=== PATIENT | female | born 2000 | race Caucasian/White ===

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

== ENCOUNTER 2019-04-24 16:30 | Outpatient (CLI) | payer OTHER, MEDICAID, SELFPAY ==
[2019-04-24 16:48] VITALS: BMI 27.2
--- NOTE | 2019-04-24 17:40 | OB.TRI.NOTE ---
History of Present Illness Date of Service: 04/24/19 Was patient seen by the physician?: No Reason For Visit: NST Allergies No Known Allergies Allergy (Verified 04/24/19 16:50) NST - FHR Rate Baby A Baseline: 140 Variability:: Moderate Accelerations:: 15 x 15 Decelerations:: None NST Reactive:: Yes FHR Category:: Category I Uterine Activity:: irregular Impression/Plan 18yo @ 39 wks with Reassuring status. - resolved tachycardia that was noted in office 1) dc home
== END 2019-04-24 17:45 | disposition home or self-care (01) ==
LOC: WPOUT 16:43 → WP 16:44
PROVIDERS: Family Provider Pediatrics; PCP Pediatrics; Referring Provider Obstetrics & Gynecology; Visit Provider Obstetrics & Gynecology
DX: O76 Abnormality in fetal heart rate and rhythm complicating labor and delivery (principal); Z3A.39 39 weeks gestation of pregnancy
CPT/HCPCS: 59025; 99218; G0378

== ENCOUNTER 2019-05-01 16:30 | Outpatient (CLI) | payer MEDICAID, SELFPAY ==
[2019-05-01 16:58] VITALS: BMI 27.6
--- NOTE | 2019-05-02 09:17 | OB.TRI.NOTE ---
History of Present Illness Was patient seen by the physician?: Yes Reason For Visit: R/O LABOR Date of Service: 05/01/19 Final PLACIDO: 05/01/19 Gestational age: 40 Weeks Allergies No Known Allergies Allergy (Verified 04/24/19 16:50) NST - FHR Rate Baby A Baseline: 135 Variability:: Moderate Accelerations:: 15 x 15 Decelerations:: None NST Reactive:: Yes Uterine Activity:: irregular Impression/Plan Reactive NST for false labor
== END 2019-05-01 17:20 | disposition home or self-care (01) ==
LOC: WPOUT 16:53 → WP 16:54
PROVIDERS: Family Provider Pediatrics; PCP Pediatrics; Referring Provider Obstetrics & Gynecology; Visit Provider Obstetrics & Gynecology
DX: O47.1 False labor at or after 37 completed weeks of gestation (principal); Z3A.40 40 weeks gestation of pregnancy
CPT/HCPCS: 59025; 59050; 99218; G0378

== ENCOUNTER 2019-05-02 15:30 | Outpatient (CLI) | payer MEDICAID, SELFPAY ==
[2019-05-01 16:58] VITALS: BMI 27.6
[2019-05-02 16:21] VITALS: BMI 27.5
--- NOTE | 2019-05-03 07:23 | OB.TRI.NOTE ---
History of Present Illness Date of Service: 05/02/19 Was patient seen by the physician?: No Reason For Visit: R/O LABOR Allergies No Known Allergies Allergy (Verified 04/24/19 16:50) NST - FHR Rate Baby A Baseline: 130 Variability:: Moderate Accelerations:: 15 x 15 Decelerations:: None NST Reactive:: Yes FHR Category:: Category I Uterine Activity:: Q4-6 Impression/Plan 18yo @ 40.1 wks- early labor [facility]
== END 2019-05-02 17:55 | disposition home or self-care (01) ==
LOC: WPOUT 16:06 → WP 16:07
PROVIDERS: Family Provider Pediatrics; PCP Pediatrics; Referring Provider Obstetrics & Gynecology; Visit Provider Obstetrics & Gynecology
DX: Z34.93 Encounter for supervision of normal pregnancy, unspecified, third trimester (principal); Z3A.40 40 weeks gestation of pregnancy
CPT/HCPCS: 59025; 59050; 99218; G0378

== ENCOUNTER 2019-05-02 20:20 | Outpatient (CLI) | payer MEDICAID, SELFPAY ==
[2019-05-02 16:21] VITALS: BMI 27.5
[2019-05-02 21:09] VITALS: BMI 27.3
--- NOTE | 2019-05-03 07:26 | OB.TRI.HP_ITS ---
History of Present Illness Date of Service: 05/02/19 Was patient seen by the physician?: No Reason For Visit: RULE OUT LABOR Final PLACIDO Source: US <20 weeks Allergies No Known Allergies Allergy (Verified 04/24/19 16:50) NST - FHR Rate Baby A Baseline: 130 Variability:: Moderate Accelerations:: 15 x 15 Decelerations:: None NST Reactive:: Yes FHR Category:: Category I Uterine Activity:: 4-6min Impression/Plan 18 yo @ 40.1 wks in early labor [facility]
== END 2019-05-02 22:20 | disposition home or self-care (01) ==
LOC: WPOUT 20:39 → WP 20:40
PROVIDERS: Family Provider Pediatrics; PCP Pediatrics; Referring Provider Obstetrics & Gynecology; Visit Provider Obstetrics & Gynecology
DX: Z34.93 Encounter for supervision of normal pregnancy, unspecified, third trimester (principal); Z3A.40 40 weeks gestation of pregnancy
CPT/HCPCS: 59025; 59050; 99218; G0378

== ENCOUNTER 2019-05-03 03:30 | Inpatient (IN) | payer OTHER, MEDICAID, SELFPAY ==
[2019-05-02 21:09] VITALS: BMI 27.3
[2019-05-03 03:37] VITALS: BMI 27.5
[2019-05-03] MEDS: Lactated Ringers 500 ML 999 ML IV (03:42)
[2019-05-03 03:59] LABS: Absolute Lymphocyte Count 1.12 X10^3/uL (0.83-4.51); Absolute Neutrophil Count 14.6 X10^3/uL (2.0-7.7); Basophil# 0.03 X10^3/uL; Basophil% 0.2 % (0-1); Eosinophil# 0.01 X10^3/uL; Eosinophils% 0.1 % (0-5); Hematocrit 37.7 % (37-47); Hemoglobin 12.8 g/dL (12.0-15.0); Lymphocyte # 1.12 X10^3/ul (4.0); Lymphocyte % 6.8 % (19-41); Mean Corpuscular Hgb 31.7 pg (27.0-32.0); Mean Corpuscular Volume 93.3 fL (81-99); Mean Platelet Vol. 10.9 fl (6.2-12.0); Monocyte# 0.52 X10^3/uL; Monocyte% 3.2 % (0-10); NRBC Flagged by Analyzer 0 % (0-5); Neutrophil # 14.62 X10^3/uL (2.7-7.7); Neutrophil % 89.1 % (47-70); Platelet Count 159 K/mm3 (150-450); Red Blood Count 4.04 M/mm3 (4.2-5.4); White Blood Count 16.4 K/mm3 (4.4-11.0)
[2019-05-03] MEDS: Lactated Ringers 1,000 ML 200 ML IV (04:25)
[2019-05-03] MEDS: fentaNYL-bupivacaine (epidural) 100 ML BAG EPIDURAL (04:45)
[2019-05-03] MEDS: Mag Hydrox/Al Hydrox/Simeth 30 ML UDC PO (05:51)
--- NOTE | 2019-05-03 07:27 | PCM.HP.OB ---
History Date of Admission: 05/03/19 Final PLACIDO: 05/01/19 Final PLACIDO Source: US <20 weeks Gestational age: 40 Weeks and 2 Days History of this : This is a 18 year-old, G P0 at 40.2 weeks gestation presents in active labor patient was found to be 8 cm at time of arrival. Allergies No Known Allergies Allergy (Verified 04/24/19 16:50) Home Medications: Home Medications Vits [Prenatabs FA] 1 tablet PO DAILY 09/10/18 Smoking Status: Former smoker Alcohol: None Substance Use Type: Marijuana Number of Fetus(es): 1 NST - FHR Rate Baby A Baseline: 135 Variability:: Moderate Accelerations:: 15 x 15 Decelerations:: None NST Reactive:: Yes FHR Category:: Category I Uterine Activity:: q4-5 History Past Pregnancies: Past Pregnancies Delivery Date Name GA/Weeks Outcome Route Weight Infant Gender Labor Length Anesthesia Delivery Location Provider FOB Labs: O neg, GBS neg, HIV NR, syphilis Neg, GC/Chlamydia neg, Rub imm Expected Infant Delivery Method: Spontaneous Vaginal Physical Exam General: Alert, Oriented x3 Abdomen: Soft, Gravid Neurological: Cranial nerves II-XII grossly intact REGISTERED NURSE CARDIOVASCULAR ICU: Normal external genitalia Estimated gestational size: Appropriate for gestational size Presentation: Cephalic Cervix Dilation (cm): 8 Station: 0 Effacement (%): 90 Assessment/Plan This is a 18 year-old, G 1P0 at 40.2 weeks in active labor Admit to labor and delivery Epidural for pain management Pitocin if indicated Anticipated normal spontaneous vaginal delivery Monitor heart rate and toco
[2019-05-03] MEDS: Oxytocin 30 units/NS 500 ml 30 UNITS/500 ML IV.SOLN 334 UNITS IV (07:49)
[2019-05-03] MEDS: Methylergonovine 0.2 MG/ML Ampul IM (07:58)
--- NOTE | 2019-05-03 08:13 | PCM.OPRPT ---
Vaginal Delivery Maternal Presentation: Active Labor Amniotic Membrane Rupture Type: Spontaneous Amniotic Fluid Description: Clear Final PLACIDO: 05/01/19 Final PLACIDO Source: US <20 weeks Gestational age: 40 Weeks and 2 Days Date of Procedure: 05/03/19 Pre-Operative Diagnosis: Term gestation, active labor Post-Operative Diagnosis: Live female born Surgery/ Procedure Performed: Spontaneous Vaginal Delivery Type of Anesthesia: Epidural Description of Procedure: of a live female infant born without complication. Delayed cord clamping performed. Presentation: Vertex Placental Delivery Description: Spontaneous Placenta Disposition: [facility] Cord Vessel Description: 3 Vessels Cord Entanglement: None Drain: Arellano to straight drain Estimated Blood Loss: 250 Infant A gender: Female (1 minute): 8 (5 minute): 9 Episiotomy Description: None Laceration: Vaginal Extension/lac - Repaired with 2-0 Vicryl and 3-0 rapide, 2nd degree Medications given after delivery: IV Pitocin, IM Methergin - Uterine atony without hemorrhage. IM Methergine given Complications: None - Uterine atony without hemorrhage
[2019-05-03] MEDS: Ondansetron 4 MG/2 ML Vial IV (08:55)
[2019-05-03 10:11] LABS: Amphetamine Urine VISTA NEGATIVE (<1000 ng/mL); Barbiturate Urine VISTA NEGATIVE (< 200 ng/mL); Benzodiazepine Urine VISTA NEGATIVE (< 200 ng/mL); Cocaine Urine VISTA NEGATIVE (< 300 ng/mL); Ecstacy Urine VISTA NEGATIVE (< 500 ng/mL); Methadone Urine VISTA NEGATIVE (< 300 ng/mL); PCP Urine VISTA NEGATIVE (< 25 ng/mL); THC Urine VISTA NEGATIVE (< 50 ng/mL); Vista UDS pH Range 6
[2019-05-03 11:45] VITALS: BP 129/87; PULSE 112; RESP 16; TEMP 37; O2SAT 97
[2019-05-03] MEDS: Ibuprofen 600 MG Tablet PO ×2 (11:52→19:25)
[2019-05-03 16:13] VITALS: BP 124/73; PULSE 89; RESP 16; TEMP 36.4; O2SAT 95
--- NOTE | 2019-05-03 18:10 | CASEMGMT ---
Social Work Assessment Labor and Delivery Unit Date of Referral: 05/03/19 Time of Referral: 9:39am Date of Intervention: 05/03/19 Time of Intervention: 17:50 Reason for Referral: HX OF ANXIETY, THC USE PRIOR TO History obtained from: MEDICAL CHART AND MOTHER OF BABY (MOB) Household composition: MOB LIVES IN AN APARTMENT WITH SIGNIFICANT OTHER/FATHER OF BABY, KAYODE LAMB. 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 MOB REPORTS GOOD SUPPORT FROM FOB AND MULTIPLE FAMILY MEMBERS. Transportation: NO ISSUES Programs/Agencies Involved: [facility], COUNSELING PREVIOUSLY Children Services/Legal Issues: MOB STATES CHILDREN SERVICE INVOLVEMENT A CHILD Behavioral Health Issues: Mental Health History: MOB REPORTS HX OF ANXIETY AND STATES ATTENDED COUNSELING A CHILD. DISCUSSED ANXIETY AND OPTIONS FOR TREATMENT PROVIDED. Substance Use History: MOB REPORTS HX OF MARIJUANA USE AND STATES STOPPED SHORTLY AFTER BECOMING . MOB STATES FOB ALSO USED TO SMOKE MARIJUANA AND ALSO QUIT. Drug Screens: NEGATIVE ON ADMISSION Family/Social Stressors: MOB REPORTS WAS USING CONTROL WHEN SHE BECAME . MOB REPORTS BABY ERICA MANZANO HAS BEEN A HUGE GAME CHANGER. EDUCATION, ENCOURAGEMENT AND SUPPORT PROVIDED. DISCUSSED HELP ME GROW AND MOB WANTING REFERRAL FOR SERVICES. Support Systems: MOB STATES FOB IS A HUGE SUPPORT. MOB ALSO STATES HAS SUPPORT FROM MULTIPLE FAMILY AND FRIENDS. Depression/Shaken Baby/Safe Sleeping EDUCATION AND RESOURCES PROVIDED AND MOB VERBALIZED UNDERSTANDING. ASSESSMENT: THIS WORKER MET WITH MOB AT BEDSIDE. MOB IS FIRST TIME MOM. BABY ERICA MANZANO ASLEEP IN [place] AND KAYODE JACOB ASLEEP ON COUCH. DISCUSSED DELIVERY AND MOB REPORTS FEELING SORE AND TIRED, BUT UNABLE TO SLEEP AT THIS TIME. MOB REPORTS IS AND FEELS IT IS GOING WELL SO FAR. MOB ADMITS TO HX OF ANXIETY AND STATES ATTENDED COUNSELING A CHILD. MOB ADMITS TO MARIJUANA USE AND STATES STOPPED SHORTLY AFTER BECOMING . MOB STATES DOES NOT INTEND ON USING MARIJUANA. DISCUSSED SPEAKING WITH PHYSICIAN ABOUT ANXIETY AND INFORMATION ON LOCAL COUNSELING AGENCIES PROVIDED. EDUCATION PROVIDED ON POST DEPRESSION AND RESOURCE PACKET REVIEWED AND GIVEN TO MOB. DISCUSSED BEING A FIRST TIME MOM AND OFFERED TO MAKE REFERRAL TO HELP ME GROW. MOB IN AGREEMENT WITH REFERRAL. MOB STATES HAS ALL NEEDS MET FOR BABY AND HAS GOOD SUPPORT FROM FOB AND FAMILY. MOB STATES WILL BE FOLLOWING UP WITH [facility] SUNDAY AND PROVIDED INFORMATION ON LOCAL PEDIATRICIANS PER REQUEST. Safe Plan of Care for infant related to substance use: DISCUSSED MOB AND FOB'S PREVIOUS USE OF MARIJUANA. MOB STATES THEY HAVE BOTH QUIT AND DO NOT INTEND TO USE. PLAN: HOME WITH RESOURCES PROVIDED ALONG WITH HELP ME GROW REFERRAL. No other services requested or indicated. -Ree Quinonez, REMOTE SENSING ADVISOR, LIQUOR TESTER
[2019-05-03 19:27] VITALS: BP 129/75; PULSE 90; RESP 16; TEMP 36.5; O2SAT 97
[2019-05-04 00:25] VITALS: BP 116/66; PULSE 76; RESP 16; TEMP 36.3; O2SAT 96
[2019-05-04] MEDS: Ibuprofen 600 MG Tablet PO ×3 (03:56→20:37)
[2019-05-04 04:00] VITALS: BP 112/77; PULSE 88; RESP 18; TEMP 36.5; O2SAT 96
[2019-05-04] MEDS: Senna/Docusate Sodium 1 Tablet PO (07:15)
[2019-05-04] MEDS: Acetaminophen 500 MG Tablet 1000 MG PO (07:15)
[2019-05-04 07:30] VITALS: BP 109/72; PULSE 83; RESP 18; TEMP 36.6; O2SAT 96
--- NOTE | 2019-05-04 09:02 | PCM.PN.OB ---
Subjective: Seen at bedside, doing well. Patient reports good pain control is sore in the vaginal area. Breast-feeding going well. Lochia is mild. Without difficulty - Physical Exam General: Alert, Oriented x3, Cooperative HEENT: Atraumatic, PERRLA, Normocephalic Abdomen: Soft, Non Tender, - - Fundus firm Extremities: No edema Neurological: Cranial nerves II-XII grossly intact Psych/Mental Status: Normal Affect, Appropriate Vital Signs Temp Pulse Resp BP Pulse Ox 97.8 F 83 18 109/72 96 05/04/19 07:30 05/04/19 07:30 05/04/19 07:30 05/04/19 07:30 05/04/19 07:30 Oxygen Delivery Method Room Air Weight: 70.5 kg Body Mass Index (BMI) 27.5 Intake and Output for Last 24 Hours 05/02/19 05/03/19 05/04/19 23:59 23:59 23:59 Intake Total 2080 / 2080 240 / 240 Output Total 2400 / 2400 Balance -320 / -320 240 / 240 Laboratory Tests Past 24 Hrs 05/03/19 09:45 Urine Opiates Screen NEGATIVE Urine Methadone Screen NEGATIVE Ur Barbiturates Screen NEGATIVE Ur Phencyclidine Scrn NEGATIVE Ur Amphetamines Screen NEGATIVE U Methamphetamin-MDMA NEGATIVE U Benzodiazepines Scrn NEGATIVE Urine Cocaine Screen NEGATIVE U Cannabinoids Screen NEGATIVE Ur Drug Screen Comment Medical Necessity - Tobacco Use Smoking Status: Former smoker Assessment/Plan day #1, doing well Routine care Pain management Anticipate DC home tomorrow
[2019-05-04 13:30] VITALS: BP 114/72; PULSE 86; RESP 16; TEMP 36.8
--- NOTE | 2019-05-04 13:59 | PCM.OPRPT ---
Report of Operation Date of Procedure: 05/04/19 Pre-Operative Diagnosis: nexplanon insertion Post-Operative Diagnosis: same Surgery/Procedure Performed:: nexplanon insertion Type of Anesthesia:: Local Special Medications: lidocaine 1% Specimen's removed: none Estimated Blood Loss (mL): none Description of Procedure: consent was obtained. Area cleansed with Betadine. 3 cc of 1% lidocaine was injected. Nexplanon was placed without difficulty. Patient was able to feel the implant in the subcutaneous location. Steri-Strips applied. Pressure dressing applied. Patient tolerated well. There were no complications. Grafts/Implants Used: nexplanon - Complications none - Admit VTE Documentation VTE Present on Admission: No VTE Pharm Prophylaxis ordered?: No
[2019-05-04] MEDS: Etonogestrel 68 MG IMPLANT SQ (14:12)
[2019-05-04 20:25] VITALS: BP 123/76; PULSE 92; RESP 16; TEMP 36.1
--- NOTE | 2019-05-04 21:17 | NURSING ---
dressing on left upper arm intact.
[2019-05-05 02:55] VITALS: BP 116/68; PULSE 89; RESP 16; TEMP 36.1; O2SAT 97
[2019-05-05] MEDS: Ibuprofen 600 MG Tablet PO ×2 (03:07→10:18)
--- NOTE | 2019-05-05 09:15 | PCM.PN.OB ---
Subjective: Doing well per patient and nursing staff. Ambulating and taking PO without difficulty. Voiding and passing flatus. Pain controlled. Denies any increased lochia or clots. Planning D/C home today. - Physical Exam General: Alert, Oriented x3 HEENT: Atraumatic, PERRLA Neck: Trachea Midline Lungs: Clear to auscultation, Normal air movement, No rhonchi, No wheeze Cardiovascular: Regular rate, Regular Rhythm, No murmurs Abdomen: Bowel Sounds Present Extremities: No edema Psych/Mental Status: Normal Affect, Appropriate Vital Signs Temp Pulse Resp BP Pulse Ox 97 F L 89 16 116/68 97 05/05/19 02:55 05/05/19 02:55 05/05/19 02:55 05/05/19 02:55 05/05/19 02:55 Oxygen Delivery Method Room Air Weight: 155 lb 6.814 oz Body Mass Index (BMI) 27.5 Intake and Output for Last 24 Hours 05/03/19 05/04/19 05/05/19 23:59 23:59 23:59 Intake Total 2080 / 2080 240 / 240 Output Total 2400 / 2400 Balance -320 / -320 240 / 240 Medical Necessity - Tobacco Use Smoking Status: Former smoker Assessment/Plan A:PPD #2 P: 1) Routine and discharge instructions reviewed. 2) D/C home today. 3) Return for PP visit at 2 weeks and 6 weeks .
--- NOTE | 2019-05-05 09:20 | DCINST_ITS ---
Discharge Diet: No Restrictions Discharge Activity: Return to Normal Activity, May Drive, May Shower, May Not Shower, May Take a Tub Bath May resume sexual activity in: 4-6 weeks Weight Bearing Status: Full weight bearing Additional Activity Instructions:: Nothing in the vagina for 4-6 weeks. You may return to work/school in 6 weeks. Call your doctor if your incision/area has: Continuous Slow Oozing, Sudden Increased Bleeding, Increased Pain/ Swelling, Increased Redness, Foul Smelling Discharge Call your doctor if you observe: Fever of 101 or Higher, Inability to urinate, Inability to have a bowel movement, Using more than one pad per hour, Shortness of breath, Dizziness, Chest pain, Increased palpitations (irregular heartbeat), Calf discomfort, Uncontrolled pain Additional Instructions: If you experience any of the following, contact your healthcare provider. * Bleeding that soaks a pad every hour for 2 hours * Fever 100.4 or higher * Unrelieved incision or abdominal pain * Swelling, redness, discharge or bleeding from your incision or episiotomy site * Your incision begins to separate * Problems urinating (including inability to urinate or burning while urinating). * Visual changes * Severe headache * Flu-like symptoms * Pain or redness in one of both of your breasts * Pain, warmth, tenderness or swelling in your legs, especially the calf area * Frequent nausea and vomiting * Symptoms of depression or anxiety If you experience any of the following, call 911 or go to the nearest Emergency Room. * Chest pain * Problems breathing * Seizure activity * Partial or complete paralysis of a body part, slurred speech, weakness or drooping of the face, or a sudden inability to walk or hold your balance Allergies/Adverse Reactions: Allergies No Known Allergies Allergy (Verified 04/24/19 16:50) Medications to take at Discharge Vits [Prenatabs FA ] 1 tablet PO DAILY 09/10/18 Ibuprofen [Motrin] 600 mg PO Q6H PRN PRN #30 tab 05/05/19 The following prescriptions were given: Ibuprofen [Motrin] 600 mg PO Q6H PRN PRN #30 tab PRN Reason: Mild Pain (-10/27) Prescription Printed Please Follow Up With: Kerri Godwin MD When: Call to make an appointment with your doctor in 2 weeks and 6 weeks. Primary Care Physician: Maksim Gonzalez MD [Primary Care Provider] - Test Results: Test results from this visit will be discussed in further detail at your follow- up appointment, if applicable.
[2019-05-05 10:00] VITALS: BP 123/79; PULSE 94; RESP 18; TEMP 36.4
[2019-05-05] MEDS: Senna/Docusate Sodium 1 Tablet PO (10:18)
[2019-05-05 14:00] VITALS: BP 117/84; RESP 16; TEMP 36.4
--- NOTE | 2019-06-16 11:15 | CASEMGMT ---
SOCIAL WORK UPDATED ON POSITIVE MECONIUM SCREEN FOR BABY, ERICA LAMB. REPORT CALLED TO [place] WITH [facility]. Chaim ROBLES, ALGEBRA TEACHER, BROADBAND ENGINEER.
== END 2019-05-05 15:50 | disposition home or self-care (01) | DRG 807 ==
PROVIDERS: Admitting Provider Obstetrics & Gynecology; Family Provider Pediatrics; PCP Pediatrics; Referring Provider Obstetrics & Gynecology; Visit Provider Obstetrics & Gynecology
DX: O62.2 Other uterine inertia (principal); Z37.0 Single live birth; O70.1 Second degree perineal laceration during delivery; Z87.891 Personal history of nicotine dependence; Z3A.40 40 weeks gestation of pregnancy; Z30.017 Encounter for initial prescription of implantable subdermal contraceptive
CPT/HCPCS: 59025; 59050; 80307; 85025; 86850; 86900; 86901; 99218; J7120; G0378; J2405

== ENCOUNTER 2020-04-15 13:25 | Emergency (ER) | payer OTHER, MEDICAID, SELFPAY ==
[2020-04-15 13:28] VITALS: BP 135/91; PULSE 95; RESP 18; TEMP 36.8; O2SAT 96; BMI 21.0
--- NOTE | 2020-04-15 13:29 | EKG12_ITS ---
Test Reason : LEFT FLANK PAIN Blood Pressure : / mmHG Vent. Rate : 092 BPM Atrial Rate : 092 BPM P-R Int : 126 ms QRS Dur : 076 ms QT Int : 356 ms P-R-T Axes : 081 113 073 degrees QTc Int : 440 ms Normal sinus rhythm with sinus arrhythmia Right axis deviation Abnormal ECG Confirmed by WESLEY KEMP, CHRISTINA ([id number]), editorial assistant BILL CHAVEZ ([id number]) on 04/16/2020 11:33:50 A M Referred By: JULIET Confirmed By:HAYDE OLSON MD
--- NOTE | 2020-04-15 13:33 | ED.RN ---
NO OLD EKGS
--- NOTE | 2020-04-15 13:37 | RAD_ITS ---
STUDY: X-RAY CHEST REASON FOR EXAM: Female, 19 years old. LEFT SIDE PAIN TODAY, PRODUCTIVE COUGH X 1 MONTH TECHNIQUE: PA and lateral views of the chest. COMPARISON: None. FINDINGS: The lungs are clear and expanded. There is no demonstrated pleural abnormality. Normal size heart. Normal mediastinum and rachel. Normal visualized pulmonary arteries. Normal visualized aortic arch and descending thoracic aorta. Normal visualized thoracic spine. Normal visualized ribs, clavicles, and shoulders. There is no demonstrated abnormality of the visualized soft tissue structures of the upper abdomen. RAD/Chest PA and Lateral IMPRESSION: Normal x-ray examination of the chest. Electronically Signed: Tyron Loredo, at 14:11 EDT , Service support ,
--- NOTE | 2020-04-15 13:45 | ED.DCSUM_ITS ---
History of Present Illness Chief Complaint: Chest Pain Informant: Patient Onset: Days Current Severity: Mild Narrative: The patient presents complaining of a cough for over a month, left-sided chest pain that was worse today, the coughing seems to make the chest pain worse. The cough adductive of times of thick mucus. She indicates she has no history of pneumonia [place] PE, she is healthy she has implantable control denies being she does report she has had vaginal bleeding for about a month is not sure why, Her physicians are aware that she was coughing and given the above she was sent for coronavirus test a week ago that was negative the cough persisted and she came in for evaluation she is had no fever she is eating and drinking well bowel and bladder habits unremarkable no edema no leg pain, she points to the left up per chest as area of discomfort, no trauma, eating and drinking without difficulty, she has had bronchitis and pneumonia before treated with antibiotics and an inhaler but nothing recently Past Medical History - Allergies and Home Meds Allergies/Adverse Reactions: Allergies No Known Allergies Allergy (Verified 04/15/20 13:30) Primary Care Physician: Maksim Gonzalez MD [Primary Care Provider] - Past Medical History: - - Includes as above Smoking Status: Current every day smoker Review of Systems General: Denies: Chills, Fever, Sweats Eyes: Denies: Visual changes - bilaterally, Diplopia ENT: Denies: Rhinorrhea, Sore throat Cardiovascular: Reports: Chest pain. Denies: Palpitations Respiratory: Reports: Dyspnea, Cough. Denies: Dyspnea on exertion Gastrointestinal: Denies: Abdominal pain, Nausea, Vomiting, Diarrhea, Melena, Hematochezia Genitourinary: Denies: Dysuria, Hematuria, Frequency Musculoskeletal: Denies: Back pain, Extremity Pain Skin: Denies: Rash, Wounds Neurological: Denies: Headache, Weakness, Numbness Physical Exam Vital Signs/Narrative: Vital Signs Temp Pulse Resp BP Pulse Ox 04/15/20 13:28 98.3 F 95 18 135/91 H 96 General: Well nourished, Well developed, No Acute Distress Head: Normocephalic, Atraumatic Eyes: Perrl, EOMI ENT: Moist mucous membranes, No rhinorrhea Neck: Supple, Nontender Cardiovascular: Regular rate, Regular rhythm, No murmurs, - - She has discomfort to the left upper chest really in the midaxillary line the area shows no crepitance or subcu air Respiratory: No distress, CTA bilaterally, Chest nontender Abdomen: Soft, Nontender, Nondistended, Normal bowel sounds Back: Nontender, Normal Inspection Extremities: Nontender, No edema Skin: Normal color, No rash Neurological: Alert, Oriented x3, Cranial nerves II-XII grossly intact, Normal Strength, Normal Sensation Psychological: Normal affect, Normal Mood Diagnostic/Tx/Re-eval - Medical Decision Making Patient's vital signs are unremarkable her EKG shows a sinus rhythm rate 90 no acute injury pattern, the etiology of the cough for over a month is unclear she is sure she was tested negative for coronavirus 1 week ago Given all the above chest x-ray screening evaluation d-dimer Patient's ED screening evaluation labs chest x-ray are all generally unremarkable she was reports, hCG d-dimer negative, she is resting company bed no distress her vital signs remained unremarkable I had a long conversation with her, she is been coughing for over a month, she is had the chest pain on and off for that degree of time slightly worse more bothersome to her over the last few days, She has had the vaginal bleeding for over a month she has an implantable control device in her left arm, she is comfortable discharge home on a zithromycin and inhaler she will follow-up with outpatient providers for the cough, and follow-up with 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
[2020-04-15] MEDS: 0.9% Normal Saline 1,000 ML 150 ML IV (14:04)
[2020-04-15] MEDS: Morphine 4 MG/ML Syringe IV (14:04)
[2020-04-15] MEDS: Aspirin 81 MG TAB.CHEW 324 MG PO (14:04)
[2020-04-15] MEDS: Ondansetron 4 MG/2 ML Vial IV (14:04)
[2020-04-15 14:05] VITALS: BP 135/91; PULSE 95; RESP 18; TEMP 36.8; O2SAT 96
[2020-04-15 14:06] VITALS: O2SAT 100
[2020-04-15 14:17] LABS: Absolute Lymphocyte Count 2.27 X10^3/uL (0.83-4.51); Absolute Neutrophil Count 4.8 X10^3/uL (2.0-7.7); Basophil# 0.03 X10^3/uL; Basophil% 0.4 % (0-1); Eosinophil# 0.13 X10^3/uL; Eosinophils% 1.7 % (0-5); Hematocrit 41.1 % (37-47); Hemoglobin 13.9 g/dL (12.0-15.0); Lymphocyte # 2.27 X10^3/ul (4.0); Lymphocyte % 29.8 % (19-41); Mean Corp Hgb Conc 33.8 g/dL (32-36); Mean Corpuscular Hgb 31.5 pg (27.0-32.0); Mean Corpuscular Volume 93.2 fL (81-99); Mean Platelet Vol. 10.9 fl (6.2-12.0); Monocyte# 0.36 X10^3/uL; Monocyte% 4.7 % (0-10); NRBC Flagged by Analyzer 0 % (0-5); Platelet Count 190 K/mm3 (150-450); RBC Distribution Width CV 12.4 % (11.6-14.6); Red Blood Count 4.41 M/mm3 (4.2-5.4); White Blood Count 7.6 K/mm3 (4.4-11.0)
[2020-04-15 14:30] LABS: D-Dimer Quantitative (DVT/PE) 0.35 FEU/ug/m (0.27-0.49)
[2020-04-15 14:33] LABS: Anion Gap 6 (5-15); BUN 11 mg/dL (7-18); BUN/Creat Ratio 14.6 RATIO (10-20); Calcium,Total 8.7 mg/dL (8.5-10.1); Chloride 112 mmol/L (98-107); Creatinine, Serum 0.76 mg/dL (0.55-1.02); EST Glomerular Filtration Rate 103 mL/min (>60); Est Glom Filt Rate - Afr Amer 125 mL/min (>60); Estimated Creatinine Clearance 97.68 ml/min; Glucose 94 mg/dL (74-106); Potassium 3.7 mmol/L (3.5-5.1); Sodium Level 142 mmol/L (136-145)
[2020-04-15 14:39] VITALS: BP 110/83; PULSE 75; RESP 13; O2SAT 95
[2020-04-15 14:48] LABS: Internal QC Validated? YES +Cl - CLEAR BKGD; Pregnancy, Serum, hCG Quali. NEGATIVE Negative
[2020-04-15] MEDS: Azithromycin 250 MG Tablet 500 MG PO (15:05)
[2020-04-15 15:22] VITALS: BP 110/69; PULSE 74; RESP 16; RESP 18; TEMP 36.9; O2SAT 99
== END 2020-04-15 15:24 | disposition home or self-care (01) ==
PROVIDERS: Emergency Provider Emergency Medicine; PCP Pediatrics
DX: R05 Cough (principal); N93.9 Abnormal uterine and vaginal bleeding, unspecified; F17.200 Nicotine dependence, unspecified, uncomplicated
CPT/HCPCS: 71046; 80048; 84484; 84703; 85025; 85379; 93005; 96361; 96374; 96375; 99284; J2405

== ENCOUNTER 2020-09-07 15:10 | Emergency (ER) | payer OTHER, MEDICAID, SELFPAY ==
[2020-09-07 15:10] VITALS: BP 126/95; PULSE 85; RESP 16; TEMP 36.7; O2SAT 100; BMI 21.4
--- NOTE | 2020-09-07 15:31 | ED.VISSUMM ---
- ER Visit Summary Date of Service: 09/07/20 Chief Complaint: Abdominal pain History of Present Illness: The patient is a 19 F who presents with abdominal pain that has been waxing and waning over the past 1 to 2 weeks. Patient states that she was told she had a hernia above her umbilicus. Patient states she went to an urgent care today and they did not think there was a hernia there. Patient states the pain is worse when she has any nausea or vomiting. Patient describes the pain as throbbing and aching. Patient states she is approximately 8 weeks . Patient also admits to mild headache and some pain into her back. Patient denies any fevers or chills. Physical Examination: Vital signs are stable. Patient is afebrile. Patient is in no acute distress. Oral mucosa is pink and moist. Neck is supple. Trachea is midline. There is no JVD. Heart was regular rate and rhythm. Lungs are clear and equal bilaterally. Abdomen is soft. Bowel sounds are normal. There is some mild tenderness just above the umbilicus. There is a small fascial defect noted. There is no mass palpated. There is no herniation palpated. There is no rebound or guarding noted. Cranial nerves II through XII are intact. There are no focal motor or sensory deficits noted peer extremities are intact. There is no calf tenderness or edema. Test Results: CBC and comprehensive metabolic profile were obtained and were within normal limits. Urinalysis was obtained. There is no evidence of urinary tract infection. Emergency Department Course and Treatment: Patient was advised of her findings. Patient was instructed to continue Tylenol as needed for pain. Patient was instructed to follow-up with her primary care physician and [facility] in 5 to 7 days. Patient understood and was agreeable with the plan. All questions were answered. Disposition: Discharge home Impression: Abdominal strain This note was generated with [employer] dictation software. It may contain incorrect words, spelling, and punctuation that were not noted in review of the chart prior to signing ED Disposition - Plan for ED Patient: Disposition: Home or Assisted Living Diagnosis: Abdominal pain Instructions: ED Abdominal Pain Unkn Cause Fem, ED Hernia (Adult) Referrals: Maksim Gonzalez MD [Primary Care Provider] - 5-7 Days
[2020-09-07] MEDS: Ondansetron 4 MG/2 ML Vial IV (15:50)
[2020-09-07 15:58] LABS: Absolute Lymphocyte Count 1.87 X10^3/uL (0.83-4.51); Absolute Neutrophil Count 7.1 X10^3/uL (2.0-7.7); Basophil# 0.04 X10^3/uL; Basophil% 0.4 % (0-1); Eosinophil# 0.07 X10^3/uL; Eosinophils% 0.7 % (0-5); Hematocrit 41.5 % (37-47); Hemoglobin 14.2 g/dL (12.0-15.0); Lymphocyte # 1.87 X10^3/ul (4.0); Lymphocyte % 19.5 % (19-41); Mean Corp Hgb Conc 34.2 g/dL (32-36); Mean Corpuscular Hgb 31.4 pg (27.0-32.0); Mean Corpuscular Volume 91.8 fL (81-99); Mean Platelet Vol. 10.3 fl (6.2-12.0); Monocyte# 0.45 X10^3/uL; Monocyte% 4.7 % (0-10); NRBC Flagged by Analyzer 0 % (0-5); Neutrophil # 7.14 X10^3/uL (2.7-7.7); Neutrophil % 74.4 % (47-70); Platelet Count 190 K/mm3 (150-450); RBC Distribution Width CV 12.9 % (11.6-14.6); RBC Distribution Width SD 43.3 fl (35.1-43.9); Red Blood Count 4.52 M/mm3 (4.2-5.4); White Blood Count 9.6 K/mm3 (4.4-11.0)
[2020-09-07 16:13] LABS: ALB/GLOB Ratio 1.3 RATIO (0.9-2.4); AST(SGOT) 6 U/L (15-37); Alanine Aminotransfer ALT/SGPT 15 U/L (13-56); Albumin, Serum 4.1 g/dL (3.2-5.0); Alkaline Phosphatase 56 U/L (45-117); Anion Gap 5 (5-15); BUN 9 mg/dL (7-18); BUN/Creat Ratio 14.2 RATIO (10-20); Chloride 108 mmol/L (98-107); Creatinine, Serum 0.63 mg/dL (0.55-1.02); EST Glomerular Filtration Rate 126 mL/min (>60); Est Glom Filt Rate - Afr Amer 153 mL/min (>60); Globulin 3.1 g/dL (2.2-4.2); Glucose 83 mg/dL (74-106); Potassium 3.7 mmol/L (3.5-5.1); Protein, Total 7.2 g/dL (6.4-8.2); Sodium Level 140 mmol/L (136-145)
[2020-09-07 16:49] LABS: Bacteria 0 SEEN /hpf (None Seen); Mucous, Urine 0 SEEN /hpf (<or=2+); Red Blood Cells-Urine 0 SEEN /hpf (0-5)
[2020-09-07 16:53] LABS: Color, Urine Yellow (Yellow); Glucose, Dipstick Normal (Normal); Ketone-Dipstick 5 mg/dl (Negative); Leukocyte Esterase-Dipstick 25 /ul (Negative); Nitrite-Dipstick Negative (Negative); Occult Blood-Urine Negative /ul (Negative); Protein-Dipstick 15 mg/dl (Negative); Specific Gravity, Urine 1.015 (1.002-1.030); Urine Bilirubin Dipstick Negative (Negative); Urine Clarity Sl. Cloudy (Clear); Urine Urobilinogen 1 mg/dl (Normal)
[2020-09-07 17:06] LABS: Amorphous Sediment 1+ PHOS; Squamous Epithelial Cells - UA 0-5 SEEN /hpf (5-10); White Blood Cells 0-5 SEEN /hpf (0-5)
[2020-09-07 17:26] VITALS: BP 117/82; PULSE 69; RESP 18; O2SAT 100
== END 2020-09-07 17:27 | disposition home or self-care (01) ==
PROVIDERS: Emergency Provider Emergency Medicine; PCP Pediatrics
DX: O9A.211 Injury, poisoning and certain other consequences of external causes complicating pregnancy, first trimester (principal); S39.011A Strain of muscle, fascia and tendon of abdomen, initial encounter; Z3A.08 8 weeks gestation of pregnancy; X58.XXXA Exposure to other specified factors, initial encounter; Y93.89 Activity, other specified; Y92.89 Other specified places as the place of occurrence of the external cause; Y99.8 Other external cause status
CPT/HCPCS: 80053; 81001; 85025; 96374; 99285; A4216; J2405

== ENCOUNTER 2021-04-16 02:55 | Inpatient (IN) | payer OTHER, MEDICAID, SELFPAY ==
[2021-04-16] VITALS (50 sets, daily range): BP systolic 102–148; BP diastolic 61–104; PULSE 51–121; RESP 16–18; TEMP 35.8–36.8; O2SAT 82–100; BMI 26.3
[2021-04-16 02:51] LABS: ROM Internal Control Test YES-OK TO RESULT pt. (Internal QC)
[2021-04-16 02:52] LABS: ROM Patient Test POSITIVE (Negative)
[2021-04-16] MEDS: Lactated Ringers 500 ML 999 ML IV ×3 (03:20→09:40)
[2021-04-16 03:44] LABS: Absolute Neutrophil Count 7.9 X10^3/uL (2.0-7.7); Basophil# 0.03 X10^3/uL; Basophil% 0.3 % (0-1); Eosinophil# 0.11 X10^3/uL; Hematocrit 37.1 % (37-47); Hemoglobin 12.2 g/dL (12.0-15.0); Lymphocyte % 20.8 % (19-41); Mean Corp Hgb Conc 32.9 g/dL (32-36); Mean Corpuscular Hgb 30.1 pg (27.0-32.0); Mean Corpuscular Volume 91.6 fL (81-99); Mean Platelet Vol. 11.4 fl (6.2-12.0); Monocyte# 0.68 X10^3/uL; Monocyte% 6.1 % (0-10); NRBC Flagged by Analyzer 0 % (0-5); Neutrophil % 71.4 % (47-70); Platelet Count 148 K/mm3 (150-450); RBC Distribution Width CV 13.7 % (11.6-14.6); RBC Distribution Width SD 45.7 fl (35.1-43.9); Red Blood Count 4.05 M/mm3 (4.2-5.4); White Blood Count 11.1 K/mm3 (4.4-11.0)
[2021-04-16] MEDS: Lactated Ringers 1,000 ML 50 ML IV (03:50)
[2021-04-16 03:57] LABS: AST(SGOT) 12 U/L (15-37); Alanine Aminotransfer ALT/SGPT 15 U/L (13-56); Creatinine, Serum 0.63 mg/dL (0.55-1.02); EST Glomerular Filtration Rate 126 mL/min (>60); Est Glom Filt Rate - Afr Amer 152 mL/min (>60); Estimated Creatinine Clearance 121.98 ml/min; Uric Acid 4.7 mg/dL (2.6-6.0)
[2021-04-16 04:07] LABS: Protein, Urine (Random) 12.1 mg/dL (<11.9); Protein:Creat Ratio 273 mg/g CRE (0-200)
[2021-04-16 04:18] LABS: Amphetamine Urine VISTA NEGATIVE (<1000 ng/mL); Barbiturate Urine VISTA NEGATIVE (< 200 ng/mL); Benzodiazepine Urine VISTA NEGATIVE (< 200 ng/mL); Cocaine Urine VISTA NEGATIVE (< 300 ng/mL); Ecstacy Urine VISTA NEGATIVE (< 500 ng/mL); Methadone Urine VISTA NEGATIVE (< 300 ng/mL); PCP Urine VISTA NEGATIVE (< 25 ng/mL); THC Urine VISTA NEGATIVE (< 50 ng/mL); Vista UDS pH Range 6
[2021-04-16] MEDS: fentaNYL-bupivacaine (epidural) 100 ML BAG EPIDURAL ×2 (05:12→09:34)
[2021-04-16] MEDS: 0.9% Saline Lock 10 ML Syringe IV (06:41)
[2021-04-16] MEDS: Ondansetron 4 MG/2 ML Vial IV (06:41)
[2021-04-16] MEDS: Mag Hydrox/Al Hydrox/Simeth 30 ML UDC PO (06:50)
[2021-04-16] MEDS: Oxytocin 30 units/NS 500 ml 30 UNITS/500 ML IV.SOLN IV (09:22)
--- NOTE | 2021-04-16 09:34 | HP.PCM.OB_ITS ---
HPI - General General Date of Admission: 04/16/21 HPI Narrative BOWEN JONES, is a 20 F who presents with LOF. Maternal Data Information Final PLACIDO: 04/18/21 Gestational age: 39&5 PFSH PFSH Medical History (Updated 04/16/21 @ 09:[address] Elizabeth Jiang MD) Anxiety Home Medications albuterol sulfate 1 - 2 puff INHALATION Q4H PRN PRN #1 inhaler 04/15/20 [Rx Last Taken Unknown] 1 tab PO/SL DAILY 04/16/21 [History Last Taken 04/13/21] Allergy/AdvReac Type Severity Reaction Status Date / Time No Known Allergies Allergy Verified 04/16/21 01:56 Surgical History (Updated 04/16/21 @ 03:20 by Miracle Soliman) History of tonsillectomy [place] teeth removed Social History Smoking Status: Former smoker History Elective abortions Hx Para 1 Spontaneous abortions Hx # Term Pregnancies Ectopic pregnancies Hx # Pregnancies Multiple births # of living children NST FHR Rate Baby A Variability:: Moderate Accelerations:: 15 x 15 Decelerations:: None Uterine Activity:: Q 2-6 minutes Vital Signs Vital Signs Vital Signs: 04/16/21 02:08 04/16/21 02:10 04/16/21 02:25 Temperature 97.0 F L Temperature Source Temporal Pulse Rate 68 52 L Blood Pressure 141/92 H 125/86 H BP Systolic 141 125 BP Diastolic 92 86 Pulse Ox 04/16/21 04:22 04/16/21 04:25 04/16/21 04:43 Temperature 96.8 F L Temperature Source Temporal Pulse Rate 51 L 60 67 Blood Pressure 140/98 H 132/85 H BP Systolic 140 132 BP Diastolic 98 85 Pulse Ox 99 98 04/16/21 04:48 04/16/21 04:53 04/16/21 04:54 Temperature Temperature Source Pulse Rate 60 68 Blood Pressure 143/86 H 128/91 H BP Systolic 143 128 BP Diastolic 86 91 Pulse Ox 98 99 04/16/21 04:58 04/16/21 05:03 04/16/21 05:04 Temperature Temperature Source Pulse Rate 59 L 67 Blood Pressure 118/99 H 135/87 H BP Systolic 118 135 BP Diastolic 99 87 Pulse Ox 99 98 04/16/21 05:08 04/16/21 05:09 04/16/21 05:13 Temperature Temperature Source Pulse Rate 64 121 H 77 Blood Pressure 112/81 H 121/82 H BP Systolic 112 121 BP Diastolic 81 82 Pulse Ox 84 99 04/16/21 05:14 04/16/21 05:18 04/16/21 05:19 Temperature Temperature Source Pulse Rate 76 75 75 Blood Pressure 126/87 H 129/86 H 130/78 H BP Systolic 126 129 130 BP Diastolic 87 86 78 Pulse Ox 99 04/16/21 05:23 04/16/21 05:24 04/16/21 05:26 Temperature Temperature Source Pulse Rate 77 72 Blood Pressure 127/68 H BP Systolic 127 BP Diastolic 68 Pulse Ox 98 87 04/16/21 05:29 04/16/21 05:34 04/16/21 05:38 Temperature Temperature Source Pulse Rate 61 62 68 Blood Pressure 109/67 107/64 BP Systolic 109 107 BP Diastolic 67 64 Pulse Ox 98 99 04/16/21 05:39 04/16/21 05:44 04/16/21 05:48 Temperature 97.0 F L Temperature Source Temporal Pulse Rate 71 55 L 64 Blood Pressure 102/61 114/68 BP Systolic 102 114 BP Diastolic 61 68 Pulse Ox 100 99 04/16/21 05:49 04/16/21 06:43 04/16/21 07:19 Temperature 97.1 F L 96.5 F L Temperature Source Temporal Temporal Pulse Rate 60 63 Blood Pressure 117/73 BP Systolic 117 BP Diastolic 73 Pulse Ox 99 99 04/16/21 07:21 04/16/21 07:23 04/16/21 08:17 Temperature 96.7 F L Temperature Source Temporal Pulse Rate 62 68 63 Blood Pressure 125/67 H 132/77 H BP Systolic 125 132 BP Diastolic 67 77 Pulse Ox 100 100 04/16/21 09:18 Temperature 97.4 F L Temperature Source Temporal Pulse Rate 58 L Blood Pressure 120/81 H BP Systolic 120 BP Diastolic 81 Pulse Ox 99 Weight Weight: 153 lb 3.2 oz Body Mass Index (BMI) 26.3 Physical Exam Const alert and oriented x3 GI soft to palpation, non-tender and non-distended Inspection: gravid Narrative: Cvx - 6/90/-2 AROM clear fluid Extremity no calf tenderness Labs Labs Labs: Blood Type O NEGATIVE Antibody Screen NEGATIVE Hct 37.1 % (37-47) Hgb 12.2 g/dL (12.0-15.0) Rhogam given: No Assessment & Plan (1) SROM (spontaneous rupture of membranes): COMMENT: 39&5 PLAN: Admit to L&D Expectant management GBS negative COVID negative EFW - less than 4500g, patient with adequate pelvis Pain - comfortable with epidural
[2021-04-16] MEDS: Oxytocin 30 units/NS 500 ml 30 UNITS/500 ML IV.SOLN 334 UNITS IV (10:05)
--- NOTE | 2021-04-16 10:21 | NURSING ---
Late entry for Miracle Soliman RN
--- NOTE | 2021-04-16 10:40 | EX.PCM.OBRPT ---
Maternal Data Information Final PLACIDO: 04/18/21 Gestational age: 39&5 Vaginal Delivery Maternal Presentation Maternal Presentation: Active Labor and Spontaneous Rupture of Membranes Operative Information Date of Procedure: 04/16/21 Pre-Operative Diagnosis: Labor Post-Operative Diagnosis: Labor Surgery / Procedure Performed: Spontaneous Vaginal Delivery Type of Anesthesia: Epidural Estimated Blood Loss: 250ml Findings Description of Procedure: Patient prepped & draped when C/C/+1. She pushed well to deliver the head. head gently guided to allow delivery of anterior and posterior shoulders. No excess traction placed on head. Body delivered and 3VC clamped & cut in delayed fashion. Placenta delivered with gentle traction and good uterine tone obtained. Presentation: DUNC[place] Amniotic Membrane Rupture Type: Artificial (small layer of amniotic membrane ruptured after she had SROM) Amniotic Fluid Description: Bloody Placental Delivery Description: Expressed Placenta Disposition: [facility] Specimen(s) Removed: Placenta Cord Vessel Description: 3 Vessels Cord Entanglement: None A Gender: Male (1 minute): 8 (5 minute): 9 Delayed Cord Clamping: Yes Post Vaginal Delivery Medications Given After Delivery: IV Pitocin Episiotomy Description: None Laceration: None Complication Complications: None
--- NOTE | 2021-04-16 18:30 | CASEMGMT ---
Social Work Assessment Labor and Delivery Unit Date of Referral: 04/16/21 Time of Referral: 17:36 Date of Intervention: 04/16/21 Time of Intervention: 18:30 Reason for Referral: History of THC use early in History obtained from: Medical record and mother of baby (MOB) Household composition: MOB, MOB?s 18-hwugn-run daughter and MOB?s mother Patient's parent/guardian status: MOB and FOB-Noe Rockwell have been together for 1 year baby boyCaleb is their fist child together (1st child for FOB) Medical History: MOB G3, P1 now 2. Apgars 8 and 9. Financial Status: Limited Supplies: MOB and FOB report to have all needs met for baby including car seat, crib, diapers, wipes, clothes, etc. Childcare/Caregiver(s): MOB and FOB report will be main caregivers for baby. Transportation: Deny any issues. Programs/Agencies Involved: [facility], [facility] Children Services/Legal Issues: MOB reports no history with Children Services or legal issues. Behavioral Health Issues: Mental Health History: MOB reports history of anxiety. MOB states was able to manage anxiety on her own. MOB denies any history of counseling or medication for anxiety. MOB reports felt good throughout and denies any concerns. Substance Use History: MOB admits to use of marijuana early in . MOB denies any current use or plans to return to use of marijuana. Maternal and Infant Drug Screens: negative, meconium pending Support Systems: MOB reports good support from family and friends. Depression and Anxiety/Shaken Baby/Safe Sleeping: Reviewed and resources provided. ASSESSMENT: Met with MOB and FOB in room. Introduced role and reason for referral. MOB admits to use of marijuana early in . MOB reports is and discussed use of marijuana while . MOB denies plan to return to use. MOB admits to history of anxiety and attended counseling during her childhood years. MOB denies need for counseling. MOB reports good support from FOB, family, and friends. MOB reports to have all needs met for baby and reports no issues or concerns. Discussed with nursing who denies any concerns. Safe Plan of Care for infant related to substance use: MOB denies plan to return to use of marijuana. PLAN: Home with resources provided. Plan to report use of THC early in to [facility] on 04/18/21. Meconium pending. No other services requested or indicated.
[2021-04-16] MEDS: Ibuprofen 600 MG Tablet PO (18:55)
--- NOTE | 2021-04-16 20:46 | PCM.DC ---
Discharge Instructions Diet Discharge Diet: No restrictions Activity Discharge Activity: May Drive May resume sexual activity in: 6 weeks Weight Bearing Status: Weight bearing as tolerated Dressing / Incision Call your doctor if you observe: Fever of 101 or Higher, Coldness, Increased Pain, Change in Color, Inability to urinate, Inability to have a bowel movement, Using more than 1 pad per hour, Shortness of breath, Dizziness, Fainting spells, Chest pain, Increased palpitations (irregular heartbeat), Calf discomfort and Uncontrolled pain Follow Up Care Please Follow Up With: Elizabeth Jiang MD When: Follow up in 2 and 6 weeks for visits. Test Results: Test results from this visit will be discussed in further detail at your follow-up appointment, if applicable. Discharge Plan Admission Admit Date/Time: 04/16/21 02:55 Primary Reason for Your Visit: Vaginal delivery Attending Provider: Elizabeth Jiang Primary Care Provider: Maksim Gonzalez Discharge Orders/Prescriptions Prescriptions: New acetaminophen 500 mg Tablet 1,000 mg PO Q6H PRN PRN (Reason: Pain 1-10 Or Fever) Qty: 0 RF: 0 ibuprofen 600 mg Tablet 600 mg PO Q6H PRN PRN (Reason: Pain Score 1-3) Qty: 0 RF: 0 No Action albuterol sulfate 1 INHALER inhaler 1 - 2 puff inhalation Q4H PRN PRN (Reason: Wheezing) Qty: 1 RF: 0 1 tab PO/SL DAILY RF: 0 Referrals / Follow Up: Maksim Gonzalez MD [Primary Care Provider] - Disposition Disposition (needs filled in before D/C Order can be placed): Home, Self Care
[2021-04-16] MEDS: Acetaminophen 500 MG Tablet 1000 MG PO (23:22)
[2021-04-17 04:24] VITALS: BP 115/68; PULSE 52; RESP 16; TEMP 36.8
[2021-04-17] MEDS: Ibuprofen 600 MG Tablet PO ×3 (07:31→20:39)
[2021-04-17 07:35] VITALS: BP 124/88; PULSE 67; RESP 16; TEMP 36.9
--- NOTE | 2021-04-17 09:44 | PCM.PN.OB ---
Subjective Subjective Pain controlled Objective Data Objective Data Vital Signs: Vital Signs Temp Pulse Resp BP Pulse Ox 98.4 F 67 16 124/88 H 89 04/17/21 07:35 04/17/21 07:35 04/17/21 07:35 04/17/21 07:35 04/16/21 10:14 Oxygen Delivery Method Room Air Weight: 153 lb 3.2 oz Body Mass Index (BMI) 26.3 Intake & Output: Intake and Output for Last 24 Hours 04/15/21 04/16/21 04/17/21 23:59 23:59 23:59 Intake Total 3848.84 / 3848.84 Output Total 1999 Balance 1848.84 / 1848.84 Lab / Micro Data Result Diagrams: 04/16/21 03:20 04/16/21 03:20 Labs: Laboratory Results - last 24 hr 04/16/21 16:15: Screen NEGATIVE, Baby's Blood Type O POSITIVE, Baby's SAMSON NEGATIVE Micro: Microbiology 04/16/21 03:25 Nasal Secretion SARS-CoV-2 Antigen (Rapid) - Final Physical Exam Const alert, oriented x3 and no apparent distress HEENT normocephalic GI soft to palpation, non-tender and non-distended GI Narrative: fundus firm, mid & below umbilicus Extremity normal to inspection and no calf tenderness Assessment & Plan (1) Vaginal delivery: COMMENT: PPD#1 PLAN: Routine care
[2021-04-17] MEDS: Acetaminophen 500 MG Tablet 1000 MG PO ×2 (11:16→17:54)
[2021-04-17 13:24] VITALS: BP 110/57; PULSE 61; RESP 16; TEMP 36.7
[2021-04-17 20:40] VITALS: BP 128/77; PULSE 60; RESP 18; TEMP 36.6
[2021-04-18 02:00] VITALS: BP 116/71; PULSE 62; RESP 16; TEMP 36.6
[2021-04-18] MEDS: Acetaminophen 500 MG Tablet 1000 MG PO (02:09)
--- NOTE | 2021-04-18 08:51 | PN.OBGYN_ITS ---
Subjective Subjective Doing well per patient and nursing staff. Ambulating and taking PO without difficulty. Voiding and passing flatus. Pain controlled. , services for assistance. Denies headache, visual changes, chest pain, shortness of breath, leg pain or increased bleeding. Lochia normal. Objective Data Objective Data Vital Signs: Vital Signs Temp Pulse Resp BP Pulse Ox 97.8 F 62 16 116/71 89 04/18/21 02:00 04/18/21 02:00 04/18/21 02:00 04/18/21 02:00 04/16/21 10:14 Oxygen Delivery Method Room Air Weight: 153 lb 3.2 oz Body Mass Index (BMI) 26.3 Intake & Output: Intake and Output for Last 24 Hours 04/16/21 04/17/21 04/18/21 23:59 23:59 23:59 Intake Total 3848.84 / 3848.84 Output Total 1999 Balance 1848.84 / 1848.84 Lab / Micro Data Result Diagrams: 04/16/21 03:20 04/16/21 03:20 Micro: Microbiology 04/16/21 03:25 Nasal Secretion SARS-CoV-2 Antigen (Rapid) - Final ROS Constitutional Constitutional: Reports systems reviewed and no addt'l complaints, except as documented; Denies headache(s) Eyes Eyes: Denies acute decrease in peripheral vision, blurry vision or change in vision ENT HEENT: Reports systems reviewed and no addt'l complaints, except as documented Cardiovascular Cardiovascular: Denies chest pain or dizziness Respiratory/Chest Respiratory/Chest: Denies cough, dyspnea, dyspnea on exertion, shortness of breath at rest or shortness of breath with exertion Gastrointestinal Gastrointestinal: Denies abdominal pain, diarrhea, nausea or vomiting Genitourinary Genitourinary: Denies abdominal discomfort Musculoskeletal Musculoskeletal: Denies limited range of motion Integumentary Integumentary: Reports systems reviewed and no addt'l complaints, except as documented Neurologic Neurologic: Reports systems reviewed and no addt'l complaints, except as documented Psychiatric Psychiatric: Reports systems reviewed and no addt'l complaints, except as documented Endocrine Endocrinology: Reports systems reviewed and no addt'l complaints, except as do cumented Hematologic/Lymphatic Hematologic/Lymphatic: Reports systems reviewed and no addt'l complaints, except as documented Allergic/Immunologic Allergic/Immunologic: Reports systems reviewed and no addt'l complaints, except as documented Physical Exam Const alert and oriented x3 General Appearance: cooperative Orientation / Consciousness: awake, oriented to person, oriented to place and oriented to time Exam Limitations: no limitations HEENT normocephalic Head and Scalp: normal to inspection, normocephalic and atraumatic Face and Sinus: normal facial exam Eyes General Eye: normal appearance of both eyes Neck full ROM Chest Chest: symmetrical chest wall rise Resp normal respiratory effort and normal air movement Auscultation: clear to auscultation bilaterally Cardio regular rate, regular rhythm, S1 normal heart sound, S2 normal heart sound, no murmurs, no rub, no gallops and no clicks GI normal to inspection, nondistended, normoactive bowel sounds and non-tender appearance of the vagina normal Bladder / Kidney Exam: no CVA tenderness Back/Spine normal ROM Extremity normal to inspection and full ROM Skin no rashes or lesions noted Neuro oriented x3, CN's II-XII intact bilaterally and moves all extremities Sensorium / Orientation: awake, alert and oriented to person Motor Exam: clonus absent Deep Tendon Reflexes: Rt Patellar (L4): 2+ and Lt Patellar (L4): 2+ Assessment & Plan (1) Vaginal delivery: COMMENT: PPD#1 PLAN: 1) Routine and instructions 2) follow up in 2 weeks and 6 weeks 3) Discharge home
[2021-04-18] MEDS: Ibuprofen 600 MG Tablet PO ×2 (09:38→15:49)
[2021-04-18 09:47] VITALS: BP 146/91; PULSE 70; RESP 16; TEMP 36.7
[2021-04-18 14:57] VITALS: BP 112/74; PULSE 55; RESP 16; TEMP 36.9
--- NOTE | 2021-04-18 20:14 | CASEMGMT ---
SOCIAL WORK Report made to María with [facility] regarding MOB's use of marijuana early in . Will update with meconium results once received. Chaim Quinonez, RISK CONSULTING TREASURY DIRECTOR, RECORDS MANAGEMENT CLERK
--- NOTE | 2021-04-19 15:17 | CASEMGMT ---
SHANKAR Note: SHANKAR received voice mail from María at [facility] requesting Rashad to call her at [phone]. SHANKAR left voice mail message for María advising that Rashad is not available today but will be back on . SW advise to call this number if additional questions or concerns arise. SHANKAR received call from Abimbola Charles inquiring about the 's tox (not done), any withdrawal symptoms, plan of care related to EDUARDO act and name of stereotype caster. SHANKAR provided this additional information. Plan: SHANKAR provided additional information to [facility] regarding referral made. Rebecca PUGA
== END 2021-04-18 17:00 | disposition home or self-care (01) | DRG 807 ==
LOC: WPOUT 02:57 → WP 02:57
PROVIDERS: Admitting Provider Obstetrics & Gynecology; PCP Pediatrics; Visit Provider Obstetrics & Gynecology
DX: O80 Encounter for full-term uncomplicated delivery (principal); Z37.0 Single live birth; Z3A.39 39 weeks gestation of pregnancy
CPT/HCPCS: 59025; 59050; 80307; 82565; 82570; 84112; 84156; 84450; 84460; 84550; 85025; 85461; 86850; 86900; 86901; 87426; 90384; 99218; J7120; A4216; G0378; J2405; J2790

== ENCOUNTER 2021-09-10 01:02 | Emergency (ER) | payer OTHER, MEDICAID, SELFPAY ==
[2021-09-10 01:02] VITALS: BP 140/96; PULSE 103; RESP 18; TEMP 36.8; O2SAT 98; BMI 21.4
--- NOTE | 2021-09-10 01:23 | RAD_ITS ---
EXAM: XR THORACIC SPINE, 3 VIEWS CLINICAL INDICATION: injury TECHNIQUE: Frontal, lateral and swimmer''s views of the thoracic spine. This report was created using [employer] report [employer] technology. COMPARISON: None. FINDINGS: VERTEBRAE: Unremarkable. Preserved vertebral body height. No fracture. No spondylolisthesis. Preservation of the normal thoracic kyphosis. No significant facet arthropathy. DISC SPACES: Unremarkable. Disc spaces are maintained. RAD/Thoracic Spine 3 Views IMPRESSION: No evidence of thoracic spinal fracture or spondylolisthesis. Electronically Signed: Hayden Cagle MD at 3:06 EST Tel , Service support ,
--- NOTE | 2021-09-10 01:23 | CT_ITS ---
EXAM: CT MAXILLOFACIAL WITHOUT INTRAVENOUS CONTRAST CLINICAL INDICATION: head injury TECHNIQUE: Helically acquired images were obtained of the face without intravenous contrast. CTDIvol = ( 29.38 ) mGy, DLP = ( 540.11 ) mGycm This CT exam was performed using one or more of the following dose reduction techniques: automated exposure control, adjustment of the mA and/or kV according to patient size, and/or use of iterative reconstruction technique. This report was created using [employer] report generation technology. COMPARISON: None. FINDINGS: BONES/JOINTS: Unremarkable. No displaced fracture. No discrete lytic or blastic abnormalities. SOFT TISSUES: Unremarkable. No focal subcutaneous swelling. No discrete fluid collections. ORBITS: Unremarkable. Both globes are unremarkable. Extraocular muscles are normal. Retrobulbar fat appears unremarkable. SINUSES: Unremarkable as visualized. Clear. MASTOID AIR CELLS: Unremarkable as visualized. Clear. DENTAL: No acute findings. No periodontal osseous erosion. CT/Sinus/Facial Bone IMPRESSION: Negative CT facial bones without intravenous contrast. Electronically Signed: Hayden Cagle MD at 2:47 EST Tel , Service support ,
--- NOTE | 2021-09-10 01:23 | CT_ITS ---
EXAM: CT HEAD WITHOUT INTRAVENOUS CONTRAST CLINICAL INDICATION: head injury TECHNIQUE: Multiple axial images were obtained of the head without intravenous contrast. CTDIvol = ( 44.99 ) mGy, DLP = ( 745.49 ) mGycm This CT exam was performed using one or more of the following dose reduction techniques: automated exposure control, adjustment of the mA and/or kV according to patient size, and/or use of iterative reconstruction technique. This report was created using [employer] report generation technology. COMPARISON: None. FINDINGS: BRAIN AND EXTRA-AXIAL SPACES: Unremarkable. No intra- or extra-axial hemorrhage. No evidence of acute infarct. No intracranial mass or mass effect. There is preservation of the ayon/white matter interface. Posterior fossa structures are unremarkable. Ventricles are appropriate for age. No hydrocephalus. Basal cisterns are patent. BONES/JOINTS: Unremarkable. No discrete lytic or blastic abnormalities. SINUSES: Unremarkable as visualized. Clear. MASTOID AIR CELLS: Unremarkable. Clear. ORBITS: Visualized globes, extraocular muscles, optic nerves and retrobulbar fat appear unremarkable. CT/Brain/Head without Contrast IMPRESSION: Negative head/brain CT without intravenous contrast. Electronically Signed: Hayden Cagle MD at 2:45 EST Tel , Service support ,
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
--- NOTE | 2021-09-10 02:40 | RAD_ITS ---
EXAM: XR LUMBOSACRAL SPINE, 2 OR 3 VIEWS CLINICAL INDICATION: injury TECHNIQUE: Frontal and lateral views of the lumbar spine and sacrum. This report was created using [employer] report [employer] technology. COMPARISON: None. FINDINGS: VERTEBRAE: Unremarkable. Preserved vertebral body height. No fracture. No spondylolisthesis. Preservation of the normal lumbar lordosis. No significant facet arthropathy. DISC SPACES: No acute findings. Disc spaces are maintained. GASTROINTESTINAL TRACT: Stool and gas throughout the colon. Included bowel gas pattern is non-obstructive. RAD/Lumbar Spine 2 or 3 Views IMPRESSION: No acute findings in the lumbar spine. Electronically Signed: Hayden Cagle MD at 3:07 EST Tel , Service support ,
[2021-09-10] MEDS: Ketorolac 30 MG/ML Syringe IM (02:51)
[2021-09-10 03:40] VITALS: RESP 18
== END 2021-09-10 03:41 | disposition home or self-care (01) ==
PROVIDERS: Emergency Provider Emergency Medicine; Visit Provider Emergency Medicine
DX: S09.90XA Unspecified injury of head, initial encounter (principal); F17.290 Nicotine dependence, other tobacco product, uncomplicated; Y04.8XXA Assault by other bodily force, initial encounter
CPT/HCPCS: 70450; 70486; 72072; 72100; 96372; 99284

== ENCOUNTER 2022-02-15 16:39 | Emergency (ER) | payer OTHER, MEDICAID, SELFPAY ==
[2022-02-15 16:40] VITALS: BP 124/80; PULSE 87; RESP 15; TEMP 37.2; O2SAT 98; BMI 19.0
--- NOTE | 2022-02-15 17:12 | ED.VIS.GI ---
HPI HPI - GI History of Present Illness Chief Complaint: Abd Pain Narrative Narrative: This is a 21-year-old female presenting with supraumbilical pain. She states has been present since she gave to her child months ago. She states that it is intermittent. She states that he has a known umbilical hernia which slides in and out. 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 She states it is not currently bulging. She states it is usually much worse as far as pain. She states she has not been referred to a surgeon. Denies any GI complaints. [facility] Medical History Anxiety SROM (spontaneous rupture of membranes) Vaginal delivery Home Medications albuterol sulfate 90 mcg/actuation aerosol inhaler 1 - 2 puff inhalation Q4H PRN PRN Wheezing ##1 04/15/20 [Rx Last Taken Unknown] Allergy/AdvReac Type Severity Reaction Status Date / Time No Known Allergies Allergy Verified 02/15/22 16:40 Surgical History History of tonsillectomy [place] teeth removed Social History Smoking Status: Former smoker ROS ROS ED Constitutional Constitutional ED: Denies chills or fever(s) ENT ENT ED: Denies rhinorrhea or sore throat Cardiovascular Cardiovascular: Denies chest pain or palpitations Respiratory/Chest Respiratory/Chest: Denies cough or dyspnea Gastrointestinal Gastrointestinal: Reports abdominal pain; Denies constipation, diarrhea or melena Genitourinary Genitourinary ED: Denies dysuria or hematuria Musculoskeletal Musculoskeletal: Denies arthralgias or back pain Integumentary Denies abscess or Abrasions Neurologic Neurologic: Denies headache(s) Psychiatric Psychiatric: Denies anxiety or depression EXAM Physical Exam Const Vital Signs: 02/15/22 16:40 Temperature 99.0 F Temperature Source Temporal Pulse Rate 87 Respiratory Rate 15 Blood Pressure 124/80 H Blood Pressure Mean 94 Pulse Ox 98 Oxygen Delivery Method Room Air Positive well nourished HEENT Reports moist mucous membranes Eyes PERRL Resp normal respiratory effort and clear to auscultation bilaterally Cardio regular rate and regular rhythm GI GI Narrative: Tenderness to palpation just above the level of the umbilicus in the midline abdomen. No hernias appreciated. There is a defect here. No ecchymosis, rash. Abdomen soft. No peritoneal signs. Neuro CN's II-XII intact bilaterally Sensorium / Orientation: alert, oriented to person and oriented to place Psych mental status grossly normal Skin no wounds MDM MDM MDM Narrative Medical decision making narrative: Patient with history of umbilical hernia which appears to be reducible. She states that usually much worse as far as pain is concerned. She states that her hernia is usually much larger when she is working. She has not had a surgical referral yet. Her physical exam is remarkable only for a defect here. There is no palpable hernia. I counseled her that she will need a surgical referral. She is to alternate Tylenol and ibuprofen. She can try using abdominal binder if needed. She request a work note for today. She was provided. Return precautions were discussed. Impression: 1. Abdominal pain 2. History of umbilical hernia Lab Data Attestation: I reviewed the patient's lab results. Discharge Plan Triage Chief Complaint: Abd Pain ED Provider: Antonio Puente Dx/Rx/DC Orders Instructions: ED Hernia (Adult) Prescriptions: No Action albuterol sulfate 1 INHALER inhaler 1 - 2 puff inhalation Q4H PRN PRN (Reason: Wheezing) Qty: 1 0RF Stand Alone Forms: ED Work / School Excuse Primary Care Provider: Care Physician,No Primary Referrals: Conor Qureshi MD [STAFF PHYSICIAN] - As Needed Care Physician,No Primary [Primary Care Provider] - Disposition Disposition: Home, Self Care
--- NOTE | 2022-02-15 17:15 | CM.ED ---
Social Work Note Reason for Referral: No PCP SW reviewed chart and no PCP listed for pt. Rebecca FRANCISCO in to speak with pt and provided pt with PCP list. Wilma Berman TRAILHEAD MAINTENANCE WORKER, INSULATION TECHNICIAN
== END 2022-02-15 17:15 | disposition home or self-care (01) ==
PROVIDERS: Emergency Provider Student in an Organized Health Care Education/Training Program; Visit Provider Student in an Organized Health Care Education/Training Program
DX: R10.9 Unspecified abdominal pain (principal); Z87.891 Personal history of nicotine dependence; K42.9 Umbilical hernia without obstruction or gangrene
CPT/HCPCS: 99282

== ENCOUNTER 2022-03-01 16:50 | Emergency (ER) | payer OTHER, MEDICAID, SELFPAY ==
[2022-03-01 16:50] VITALS: BP 110/82; PULSE 66; RESP 16; TEMP 36.8; O2SAT 99; BMI 19.8
--- NOTE | 2022-03-01 17:35 | ED.VIS.GI ---
HPI HPI - GI History of Present Illness Chief Complaint: Abd Pain Informant: patient Abdominal Pain/Flank Pain Onset: Hours Context: Gradual Onset Timing: Continuous Quality: Aching Location: - (Umbilical discomfort) Current Severity: Mild Maximum Severity: Mild Worsened by: Nothing Relieved by: Nothing Nausea/Vomiting/Emesis GI Symptom: Positive for Nausea Onset: Today Severity: Mild Diarrhea/Melena/Hematochezia GI Symptom: Negative for Diarrhea, Melena or Hematochezia Associated Symptoms Associated Symptoms: Negative for Dysuria, Frequency, Hematuria or Urgency Narrative Narrative: 21-year-old female history of umbilical hernia. States this morning around 1 AM had some discomfort around her umbilicus. Mild cramping. Nausea that is since resolved. No vomiting or diarrhea. No constipation or dysuria. Last menstrual period was a week ago was normal. She said this is similar pain as she has had with a known umbilical hernia she has. She is scheduled to have surgery on that next week. She denies any fever or chills. She denies any vaginal bleeding or discharge. Prior similar symptoms: Yes Recent Illness/Hospitalization: No PFSH PFSH Medical History Alcohol use Anxiety Back pain Bronchitis with influenza Easy bruising Heartburn Hypotension Injury of head and neck Leg cramps Loss of consciousness Marijuana use Restless legs Shortness of breath on exertion SROM (spontaneous rupture of membranes) Syncope Vaginal delivery Vapes nicotine containing substance Home Medications albuterol sulfate 90 mcg/actuation aerosol inhaler 1 - 2 puff inhalation Q4H PRN PRN Wheezing ##1 04/15/20 [Rx Last Taken Unknown] acetaminophen 325 mg tablet (Tylenol) 650 mg PO ONCE PRN Pain 02/17/22 [History Last Taken Unknown] Allergy/AdvReac Type Severity Reaction Status Date / Time No Known Allergies Allergy Verified 03/01/22 16:52 Family History Mother Heart disease Cancer skin Grandmother Hypertension Seizures Thyroid disorder Cancer skin Grandfather Cancer skin Surgical History History of tonsillectomy [place] teeth removed Social History Smoking Status: Never smoker alcohol intake: never substance use type: does not use ROS ROS ED ROS Narrative Nausea. Periumbilical discomfort. Review of Systems ROS Unobtainable: Denies due to encephalopathy Constitutional Constitutional ED: Denies chills ENT ENT ED: Denies ear pain Cardiovascular Cardiovascular: Denies chest pain Respiratory/Chest Respiratory/Chest: Denies cough Gastrointestinal Gastrointestinal: Reports abdominal pain and nausea; Denies constipation, diarrhea, melena or vomiting Genitourinary Genitourinary ED: Denies dysuria Musculoskeletal Musculoskeletal: Denies arthralgias Neurologic Neurologic: Denies headache(s) Psychiatric Psychiatric: Denies anxiety Endocrine Endocrinology: Denies polydipsia Hematologic/Lymphatic Hematologic/Lymphatic: Denies easy bleeding Allergic/Immunologic Allergic/Immunologic ED: Denies mouth swelling EXAM Physical Exam Narrative Exam Narrative: Well-appearing 21-year-old female. No acute distress. Vital signs stable afebrile. HEENT exam unremarkable. Lungs are clear. Heart regular rate and rhythm. Abdomen soft nondistended normal bowel sounds no peritoneal signs. No signs of obstruction. She has a small umbilical hernia. Currently its not incarcerated or strangulated. It is only minimally tender. There is no signs of obstruction. Her abdomen soft and otherwise benign with no other areas of tenderness. Moving all 4 extremities. Neurologic exam normal. Const Vital Signs: 03/01/22 16:50 Temperature 98.2 F Temperature Source Temporal Pulse Rate 66 Respiratory Rate 16 Blood Pressure 110/82 H Blood Pressure Mean 91 Pulse Ox 99 Oxygen Delivery Method Room Air Positive well nourished and well developed; Negative for obese, cachectic, contractures or unkempt General Appearance ED: well developed; Negative for unkempt, cachectic or contractures Nutritional Appearance: Negative for cachectic or obese HEENT Reports moist mucous membranes normocephalic and atraumatic; Negative for trauma or tenderness Eyes PERRL and EOMs intact bilaterally General Eye ED: Negative for pale conjunctiva or scleral icterus Neck no lymphadenopathy, supple and no JVD General: Negative for tenderness Carotids: Negative for other Lymph Lymphatic: Negative for other Resp normal respiratory effort and clear to auscultation bilaterally Effort and Inspection: Negative for respiratory distress Auscultation: Negative for rales, rhonchi or wheezes Cardio regular rate, regular rhythm, S1 normal heart sound, S2 normal heart sound and no murmurs Rate: Negative for bradycardia Rhythm: Negative for abnormal rhythm GI non-distended and no masses; Negative for non-tender Inspection: Negative for abdominal distention Auscultation: normoactive bowel sounds; Negative for hyperactive bowel sounds or hypoactive bowel sounds Palpation: soft, tender, rigid and hernia; Negative for guarding, hepatomegaly, splenomegaly, mass, pulsatile mass or rebound tenderness present Back/Spine no CVA tenderness Extremity full ROM General Extremety ED: Negative for edema or tenderness General Extremity: Negative for edema Neuro moves all extremities Sensorium / Orientation: alert, oriented to person, oriented to place and oriented to time; Negative for orientation impaired, confused, lethargic or stuporous Motor Exam: strength 5/5 throughout Psych Appearance: Negative for unkempt Skin no wounds General Skin Exam: Negative for jaundice Lesions: no lesions Rashes: no rashes Trauma: Negative for abrasion Nails: Negative for discolored MDM MDM MDM Narrative Medical decision making narrative: Patient with mild periumbilical discomfort. She has a known umbilical hernia. Currently its not incarcerated nor strangulated. She is scheduled to have it repaired next week. She will be given Motrin for pain and be discharged to home. Discharge Plan Triage Chief Complaint: Abd Pain ED Provider: Octavio Vo Dx/Rx/DC Orders Clinical Impression: Umbilical hernia without obstruction or gangrene, Abdominal pain Instructions: ED Hernia (Adult) Prescriptions: No Action acetaminophen [Tylenol] 325 mg tablet 650 mg PO ONCE PRN (Reason: Pain) albuterol sulfate 1 INHALER inhaler 1 - 2 puff inhalation Q4H PRN PRN (Reason: Wheezing) Qty: 1 0RF Primary Care Provider: Care Physician,No Primary Referrals: Care Physician,No Primary [Primary Care Provider] - Activity Restrictions/Additional Instructions: Tylenol and Motrin for pain. Ice to the area. Follow-up with surgeon next week. Return if severe pain, vomiting or distended abdomen like there is an obstruction or your hernia pops out is really painful and does not go back in. These are all unlikely. Disposition Disposition: Home, Self Care
[2022-03-01] MEDS: Ibuprofen 600 MG Tablet PO (17:43)
== END 2022-03-01 17:48 | disposition home or self-care (01) ==
PROVIDERS: Emergency Provider Emergency Medicine; Visit Provider Emergency Medicine
DX: K42.9 Umbilical hernia without obstruction or gangrene (principal)
CPT/HCPCS: 99283

== ENCOUNTER 2022-03-06 10:58 | Day surgery (SDC) | payer OTHER, MEDICAID, SELFPAY ==
[2022-03-06] VITALS (10 sets, daily range): BP systolic 114–133; BP diastolic 68–104; PULSE 51–69; RESP 14–16; TEMP 36.2–36.7; O2SAT 94–100; BMI 19.9
[2022-03-06 11:39] LABS: Internal QC Validated? YES +Cl - CLEAR BKGD; Pregnancy, Urine Negative Negative
--- NOTE | 2022-03-06 11:58 | HP.PCM_ITS ---
History and Physical Date of Admission: 03/06/22 Date of Service:? 02/17/22 MR#: [id number] Acct: [id number] Name:BOWEN RUFFIN Rep #: [id number] : 2000 ? ? Provider: Dr. Conor Qureshi MD Age/Sex:? 21/F ? ? [place] [facility] [place] Status: Signed Intake Vital Signs ? 02/16/2216:40 02/18/2208:06 Height 5 ft 4 in 5 ft 4 in Weight: 110 lb 10.753 oz 111 lb 2 oz BMI 19.0 19.1 BP 124/80 H 124/90 H Blood Pressure Location ? Rt brachial Position ? Sitting Respiration 15 16 Pulse 87 78 Pulse Source ? Monitor Temp 99.0 F 98.7 F Temp Source Temporal Temporal Pulse Oximetry (%) 98 98 Oxygen Delivery Method ? 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 Anxiety SROM (spontaneous rupture of membranes) Vaginal delivery Surgical History? History of tonsillectomy [place] teeth removed Family History?(Updated 02/17/22 @ 08:05 by Alexandria Sunday) Mother Heart disease Cancer ?? ? skinGrandmother Hypertension Seizures Thyroid disorder Cancer ?? ? skinGrandfather Cancer ?? ? skin Social History?(Updated 02/17/22 @ 08:05 by Alexandria Sunday) Smoking Status:? Former smoker alcohol intake:? never substance use type:? does not use HPI HPI HPI: BOWEN JONES, is a 21 F who presents to the office today for umbilical hernia.? This finding was first noticed by patient midway through her with her second child (over a year ago).? 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 However, has become more symptomatic over the past couple of weeks.? 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 She denies any impact to her bowel movements.? She also states that she has never tried to push this hernia back in.? She confirms that she is done having children. Patient has a personal history of smoking, but states this is remote and no longer current.? Has no personal history of recurrent cutaneous infections including staph.? Pertinent surgical history includes: Tonsillectomy?otherwise noncontributory ROS General General: Yes weight change and appetite; No fatigue, colon cancer, breast cancer or weakness Additional Details: Pt states over the last couple months she has lost about 10-15 lbs HEENT HEENT: No difficulty swallowing, eye injury, eye surgery, swollen glands or hoarseness Endo Endocrine: No thyroid disease, diabetes mellitus, thyroid cancer, Hair loss, heat intolerance or cold intolerance Skin Skin: No rash or changing moles Musc Musculoskeletal: Yes back problems; No arthritis, rheumatoid arthritis, gout or joint pain Cardio Cardiovascular: No murmur, pacemaker, heart disease, atrial fibrillation, high blood pressure, heart attack, heart stent, palpitations, shortness of breat with exertion or chest pain Psych Psychiatric: Yes anxiety; No depression or hearing voices Resp Respiratory: No shortness of breath, No sleep apnea, No cough, No COPD, No asthma, No emphysema and No wheezing Gastro Gastrointestinal: Yes abdominal pain, Yes nausea or vomiting, No diarrhea, No constipation, No blood in stool, No acid reflux, No hemorrhoids, No ulcers, No gallbladder problem and No black,tarry stools Leobardo Hematologic: No blood thinners, No blood disorders, No bleeding, No anemia and No blood clots Neuro Neurologic: No system reviewed and no additional complaints, except as documented, No as per HPI, No abnormal gait, No abnormal hearing, No abnormal movements, No abnormal speech, No behavioral changes, No burning sensations, No confusion, No convulsions, No disequilibrium, No dizziness, No localized weakness, No frequent falls, No headache(s), No lack of coordination, No loss of vision, No memory loss, No numbness, No other visual disturbances, No radicular pain, No restless legs, No sensory deficit, No syncope, No tingling, No tremor(s), No weakness and No other Exam Const General: cooperative, comfortable and no acute distress Orientation: alert, awake and oriented x3 Resp Effort & Inspection: normal respiratory effort GI Other: Nondistended, no scars, umbilical piercing present.? Nontender to palpation x4 quadrants.? Exquisite tenderness over her umbilicus.? There is a subcentimeter fascial defect with what appears to be chronically incarcerated fat in this location. Assessment and Plan Assessment and Plan (1) Umbilical hernia without obstruction or gangrene: ?Status:?Acute ?Comment: Patient is a 21-year-old female who presents for evaluation of a very small umbilical hernia that presented midway through her with her last child.? Her primary symptoms with this issue are pain.? She does not describe any period of change to her bowel habits.? She works in a physically demanding job and frequently feels discomfort following work.? Therefore she wishes to have this issue addressed sooner than later.? She does confirm that she believes she is done with having children.? On exam this hernia is very small and I believe I would have to enlarge the fascial defect to even place a mesh.? Therefore I have shared with her that I would recommend a open primary repair.? We will consent her for the use of mesh in case this turns out to be larger than the exam suggests.? Still, she has been carefully advised on her postoperative activity restrictions to include no lifting greater than 10 pounds for 6 weeks.? She agrees to these terms and wishes to proceed to soon as possible. ?Plan: Open umbilical hernia repair (most likely primary) at first mutually available date.? Encouraged light duty at work now and through the postoperative recovery. I have examined the patient the following changes are noted: Patient required evaluation at the emergency room on 03/01/2022 due to complaints of pain at her umbilical hernia site. It was found to be neither incarcerated or strangulated and she was discharged with recommendations to use [id number] analgesics. She reports that she has been better since that visit and otherwise reports no n ew changes to her health history. Therefore we will plan to proceed to the operating room for open umbilical hernia repair. We have discussed that if the fascial defect remains small as it appears to be on exam, we will plan to proceed with primary repair. I have shared with her that otherwise it would require me making a larger hole in her abdominal fascia to place a piece of mesh and also my reservations about placing mesh in a young woman such as her self and her childbearing years (although at this time she states she is through with having children). Conversely if the fascial defect is larger than exam reveals, we will proceed with mesh placement.
[2022-03-06 12:12] LABS: Hematocrit 39.2 % (37-47); Hemoglobin 12.9 g/dL (12.0-15.0); Mean Corp Hgb Conc 32.9 g/dL (32-36); Mean Corpuscular Hgb 30.9 pg (27.0-32.0); Mean Corpuscular Volume 93.8 fL (81-99); Mean Platelet Vol. 10.9 fl (6.2-12.0); Platelet Count 164 K/mm3 (150-450); RBC Distribution Width CV 13.2 % (11.6-14.6); RBC Distribution Width SD 45.5 fl (35.1-43.9); Red Blood Count 4.18 M/mm3 (4.2-5.4); White Blood Count 6.8 K/mm3 (4.4-11.0)
[2022-03-06] MEDS: Lactated Ringers 1,000 ML 15 ML IV (12:18)
[2022-03-06 12:29] LABS: AST(SGOT) 9 U/L (15-37); Alanine Aminotransfer ALT/SGPT 13 U/L (13-56); Albumin, Serum 3.4 g/dL (3.2-5.0); Alkaline Phosphatase 82 U/L (45-117); Bilirubin, Direct 0.17 mg/dL (0.00-0.30); Globulin 2.6 g/dL (2.2-4.2); International Normalized Ratio 1.1; Prothrombin Time (Protime)PT. 14.1 SECONDS (11.7-14.9)
[2022-03-06 12:30] LABS: Partial Thromboplast Time 29.6 Seconds (24.1-36.2)
[2022-03-06] MEDS: Cefazolin 2 GM in 0.9% Normal Saline 100 ML IV (12:32)
[2022-03-06] MEDS: Bupivacaine 0.25% 30 ML Vial (13:19)
--- NOTE | 2022-03-06 13:29 | PCM.OPRPT ---
Problems Associated Problem List Diagnoses (1) Umbilical hernia without obstruction or gangrene: Report of Operation Date of Procedure: 03/06/22 Pre-Operative Diagnosis: Symptomatic umbilical hernia Post-Operative Diagnosis: Same Surgery/Procedure Performed:: Primary repair of umbilical hernia Description of Surgical Findings:: 7.5 mm diameter defect Surgeon: Conor Qureshi hand tool filer: Pooja Montes Type of Anesthesia: General/Supplemental Anesthesiologist: Gurjit Hidalgo Specimen's removed: NA Estimated Blood Loss (mL): 10 Description of Procedure: After appropriate identification in the preoperative holding area patient was brought to the operating room where she was positioned supine on the operating room table. Preoperative antibiotics were being administered during this time. Patient was then induced with a general anesthetic and her abdomen was prepped and draped in usual sterile fashion. A formal timeout was conducted to confirm both patient and the procedure amongst those present. I performed a local block with 10 mL of 0.25% bupivacaine then made a infraumbilical incision in the patient's natural skin fold. This incision was made sharply and deepened down through the dermis and subcu tissue with use of electrocautery. I used a hemostat to bluntly dissect out and encircle the umbilical stalk taking care to avoid injury to the overlying skin. Gradually this was freed from the underlying scar and soft tissue attachments until we were able to visualize patient's fascial defect. This defect was small and measured 7.5 mm in diameter. The defect was closed with 2 interrupted 0 Prolene sutures. The skin of the umbilical stalk was tacked down to the fascia with a interrupted 4-0 Monocryl. Lastly, a 4-0 Monocryl was used to close the skin in a running subcuticular technique. Steri's were applied and a rolled Telfa was placed into the umbilical concavity. A 3000 drape dressing was placed atop this and the area around the Telfa roll was evacuated to provide a bit of a compressive dressing. This concluded the formal portion of the case and the patient was allowed to awaken from general anesthetic. She was taken to PACU for ongoing recovery. Complications None Admit VTE Documentation VTE Present on Admission: Yes VTE Mechan Device Prophylaxis: SCD's Procedures Digestive 40xxx-49xxx: 88292 Rpr umbil nayely reduc > 5 yr
--- NOTE | 2022-03-06 13:51 | DCINST_ITS ---
Discharge Instructions Diet Discharge Diet: No restrictions Activity Discharge Activity: May Not Drive (No driving while using narcotic pain medication) May shower in (days): 1 Ice area for (Minutes): 20 Lifting Restrictions: No lifting greater than 10 pounds for 6 weeks after surgery Dressing / Incision Call your doctor if your incision/area has: Continuous Slow Oozing, Sudden Increased Bleeding, Increased Pain/ Swelling, Increased Redness and Swelling at the incision site Call your doctor if you observe: Fever of 101 or Higher Remove Dressing in: 3 days (Please leave Steri-Strips intact until they fall off spontaneously or are taken off at your follow-up visit) Cleanse incision/area with: Soap & Water Additional Dressing/Incision Instructions:: Please remove outer dressing but leave Steri-Strips intact Follow Up Care Please Follow Up With: Conor Qureshi MD When: 10 days postop Test Results: Test results from this visit will be discussed in further detail at your follow- up appointment, if applicable. Discharge Plan Admission Primary Reason for Your Visit: Umbilical hernia repair Attending Provider: Conor Qureshi Primary Care Provider: Care Physician,Janeth Primary Instructions Patient Instructions: Hernia Surg Umbilical Repair Ch Discharge Orders/Prescriptions Prescriptions: New oxycodone 5 mg capsule 5 mg PO Q6H PRN (Reason: pain) 3 Days Qty: 10 0RF Continued acetaminophen [Tylenol] 325 mg tablet 650 mg PO ONCE PRN (Reason: Pain) albuterol sulfate 1 INHALER inhaler 1 - 2 puff inhalation Q4H PRN PRN (Reason: Wheezing) Qty: 1 0RF Referrals / Follow Up: Care PhysicianJaneth Primary [Primary Care Provider] - Disposition Disposition (needs filled in before D/C Order can be placed): Home, Self Care
[2022-03-06] MEDS: oxyCODONE 5 MG Tablet PO (16:30)
--- NOTE | 2022-03-06 17:07 | SUR.PHASEII ---
PATIENT IS READY FOR D/C HOME. IV REMOVED AT HER REQUEST, HAS VOIDED, MEDICATED FOR PAIN, REVIEWED D/C INSTRUCTIONS WITH PATIENT & S.Doris IBARRA. 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
== END 2022-03-06 18:01 | disposition home or self-care (01) ==
LOC: SDC 10:59 → AC 11:00
PROVIDERS: Anesthesiology; Referring Provider Surgery; Visit Provider Surgery
PROC: (CPT 49585; principal; 2022-03-06 12:15)
DX: K42.9 Umbilical hernia without obstruction or gangrene (principal); F17.290 Nicotine dependence, other tobacco product, uncomplicated
CPT/HCPCS: 49585; 00830; 80076; 81025; 85027; 85610; 85730; J7120; J2405

== ENCOUNTER 2022-09-28 11:19 | Emergency (ER) | payer OTHER, MEDICAID, SELFPAY ==
[2022-09-28 11:20] VITALS: BP 129/79; PULSE 72; RESP 16; TEMP 36.4; O2SAT 99; BMI 20.9
[2022-09-28] MEDS: Naproxen 500 MG Tablet PO (13:45)
--- NOTE | 2022-09-28 13:50 | RAD_ITS ---
STUDY: X-RAY - LEFT SHOULDER REASON FOR EXAM: Female, 21 years old. Injury/Pain TECHNIQUE: 4 view(s) of the shoulder. COMPARISON: None. FINDINGS: Normal glenohumeral articulation. Normal acromioclavicular joint. Normal acromion. Normal humeral head and visualized proximal humerus. The soft tissue structures are unremarkable. Normal visualized pulmonary apex. RAD/Shoulder min 2 Views IMPRESSION: Normal x-ray examination of the shoulder. Electronically Signed: Tyron Loredo MD at 14:10 EST ,
--- NOTE | 2022-09-28 13:51 | EX.ED.UPPERE ---
HPI History of Present Illness HPI Narrative: Patient presents with left shoulder pain that has been getting worse over the past few weeks. Patient states it is constant. Patient states it is sharp. Patient states it is worse when she is sitting and her arm is in a dependent position. Patient states nothing seems to make it better. Patient admits to some tingling necrosis across the back of her shoulder and across the back of her neck. Patient denies any trauma or injury. Patient denies any weakness. Chief Complaint: Upper Extremity Injury Informant: patient Onset/Context/Timing Onset: Weeks Context: Gradual Onset Timing: Continuous Quality of Pain: Sharp Location: Left shoulder and scapula Worsened by: Sitting up Relieved by: Nothing Associated Symptoms Associated Symptoms: Positive for Parasthesia (Across her back); Negative for Weakness or Loss of Funtion PFSH PFSH Medical History Alcohol use Anxiety Back pain Bronchitis with influenza Easy bruising Heartburn Hypotension Injury of head and neck Leg cramps Loss of consciousness Marijuana use Restless legs Shortness of breath on exertion SROM (spontaneous rupture of membranes) Syncope Vaginal delivery Vapes nicotine containing substance Home Medications albuterol sulfate 90 mcg/actuation aerosol inhaler 1 - 2 puff inhalation Q4H PRN PRN Wheezing ##1 04/15/20 [Rx Last Taken Unknown] acetaminophen 325 mg tablet (Tylenol) 650 mg PO ONCE PRN Pain 02/17/22 [History Last Taken Unknown] oxycodone 5 mg capsule 5 mg PO Q6H PRN pain 3 days #10 caps 03/06/22 [Rx Last Taken Unknown] Allergy/AdvReac Type Severity Reaction Status Date / Time No Known Allergies Allergy Verified 09/28/22 11:22 Family History Mother Heart disease Cancer skin Grandmother Hypertension Seizures Thyroid disorder Cancer skin Grandfather Cancer skin Surgical History History of tonsillectomy History of umbilical hernia repair [place] teeth removed Social History Smoking Status: Never smoker alcohol intake: never substance use type: does not use ROS ROS ED Constitutional Constitutional ED: Denies chills or fever(s) Eyes Eyes: Denies blurry vision or change in vision ENT ENT ED: Denies rhinorrhea or sore throat Cardiovascular Cardiovascular: Denies chest pain or palpitations Respiratory/Chest Respiratory/Chest: Denies cough or dyspnea Gastrointestinal Gastrointestinal: Denies nausea or vomiting Genitourinary Genitourinary ED: Denies dysuria or hematuria Musculoskeletal Musculoskeletal: Reports back pain and neck pain Integumentary Denies abscess or rash Neurologic Neurologic: Denies headache(s) or weakness Allergic/Immunologic Allergic/Immunologic ED: Denies mouth swelling or urticaria EXAM Physical Exam Const Vital Signs: 09/28/22 11:20 Temperature 97.5 F L Temperature Source Temporal Pulse Rate 72 Respiratory Rate 16 Blood Pressure 129/79 H Blood Pressure Mean 95 Pulse Ox 99 Oxygen Delivery Method Room Air Positive well nourished and well developed General Appearance ED: well developed and NAD HEENT Reports moist mucous membranes Neck full ROM and supple Extremity Extremity Narrative: There is mild tenderness over the left scapula and posterior shoulder. There is pain with manipulation of the scapula. There is no bony crepitance or step-off. There is no obvious deformity noted. Range of motion was limited in all motions of the left shoulder secondary to pain. Strength is 5/5 in the radial, median, and ulnar areas. Sensation was intact to light touch in the radial, median, ulnar, and axillary areas. Radial pulses are equal bilaterally. Neuro oriented x3, CN's II-XII intact bilaterally, moves all extremities, no focal motor deficits and no sensory deficits noted Sensorium / Orientation: alert Motor Exam: strength 5/5 throughout Psych mental status grossly normal MDM MDM MDM Narrative Medical decision making narrative: Differential diagnosis includes muscular strain, arthritis, tendinitis, labral tear, and neuropathic pain. X-rays of the left shoulder will be obtained to assess for arthritis and joint space narrowing. Radiography Diagnostic Testing: X-rays of the left shoulder were reviewed independently by myself. There is no evidence of fracture, dislocation, or degenerative changes. There is no joint space narrowing. There is no soft tissue swelling. Radiologist also interpreted the x-rays and agrees. Treatment and Re-Evaluation Narrative: Patient was given a dose of Naprosyn here. Patient was advised of her findings. Patient was instructed use ice to the area. Patient was given a prescription for Naprosyn for pain. Patient was instructed to follow-up with her primary care physician in 5 to 7 days. Patient understood and was agreeable with the plan. All questions were answered. Discharge Plan Triage Chief Complaint: Upper Extremity Injury ED Provider: Maximo Lew Dx/Rx/DC Orders Clinical Impression: Muscle strain of left shoulder region Instructions: ED Muscle Strain, Extremity Prescriptions: No Action acetaminophen [Tylenol] 325 mg tablet 650 mg PO ONCE PRN (Reason: Pain) albuterol sulfate 1 INHALER inhaler 1 - 2 puff inhalation Q4H PRN PRN (Reason: Wheezing) Qty: 1 0RF oxycodone 5 mg capsule 5 mg PO Q6H PRN (Reason: pain) 3 Days Qty: 10 0RF Stand Alone Forms: ED Work / School Excuse Primary Care Provider: Care Physician,No Primary Referrals: Arleth Victor MD [Med Staff - Distribution Specialist] - 5-7 Days Care Physician,No Primary [Primary Care Provider] - Disposition Disposition: Home, Self Care
== END 2022-09-28 14:38 | disposition home or self-care (01) ==
PROVIDERS: Emergency Provider Emergency Medicine; Visit Provider Emergency Medicine
DX: S46.912A Strain of unspecified muscle, fascia and tendon at shoulder and upper arm level, left arm, initial encounter (principal); X58.XXXA Exposure to other specified factors, initial encounter
CPT/HCPCS: 73030; 99283

== ENCOUNTER 2022-10-11 20:55 | Emergency (ER) | payer OTHER, MEDICAID, SELFPAY ==
[2022-10-11 20:56] VITALS: BP 114/73; PULSE 74; RESP 16; TEMP 36.6; O2SAT 100; BMI 21.2
--- NOTE | 2022-10-11 22:04 | EDS_ITS ---
HPI History of Present Illness Chief Complaint: Upper Extremity Injury Informant: patient Narrative Narrative: Patient states that she has been having some pain across the top of her left shoulder for about 2 or 3 weeks. 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 But she does not recall any specific injury. She has never had numbness or tingling going down her arm. But she does get some intermittent tingling on the top of the shoulder. She has no chest pain. She has no trouble breathing. No coughing. The pain goes toward her neck but not completely in the neck. It is worse if she moves the shoulder but also worse if she moves the neck. She was seen at [facility] approximately a week ago. They gave her some different medicines but she does not know what they were and she is not taking one of the pain medicines. She knows 1 was a muscle relaxant. They gave her a shot of a medicine that she states was like Motrin. She did recognize the name Toradol. She states that that did not help. She does not have a family doctor in and has not attempted follow-up yet. No other areas of pain. No history of prior cervical injury. She has never had pain past the shoulder or down into her arm or hands. No tingling. She is right-hand dominant and this is her left side. PFSH PFSH Medical History Alcohol use Anxiety Back pain Bronchitis with influenza Easy bruising Heartburn Hypotension Injury of head and neck Leg cramps Loss of consciousness Marijuana use Restless legs Shortness of breath on exertion SROM (spontaneous rupture of membranes) Syncope Vaginal delivery Vapes nicotine containing substance Home Medications albuterol sulfate 90 mcg/actuation aerosol inhaler 1 - 2 puff inhalation Q4H PRN PRN Wheezing ##1 04/15/20 [Rx Last Taken Unknown] acetaminophen 325 mg tablet (Tylenol) 650 mg PO ONCE PRN Pain 02/17/22 [History Last Taken Unknown] oxycodone 5 mg capsule 5 mg PO Q6H PRN pain 3 days #10 caps 03/06/22 [Rx Last Taken Unknown] hydrocodone-acetaminophen 5-325mg 5mg-325mg 1 tab PO Q4H PRN PRN Pain 2 days #5 TABLETS 10/11/22 [Rx Last Taken Unknown] prednisone 20 mg tablet 60 mg PO DAILY #15 TABLETS 10/11/22 [Rx Last Taken Unknown] Allergy/AdvReac Type Severity Reaction Status Date / Time No Known Allergies Allergy Verified 10/11/22 20:59 Family History Mother Heart disease Cancer skin Grandmother Hypertension Seizures Thyroid disorder Cancer skin Grandfather Cancer skin Surgical History History of tonsillectomy History of umbilical hernia repair [place] teeth removed Social History Smoking Status: Never smoker alcohol intake: never substance use type: does not use ROS ROS ED Constitutional Constitutional ED: Denies chills, fever(s), subjective or sweats Eyes Eyes: Denies change in vision ENT ENT ED: Denies rhinorrhea or sore throat Cardiovascular Cardiovascular: Denies chest pain, palpitations or racing heartbeat Respiratory/Chest Respiratory/Chest: Denies cough, dyspnea, dyspnea on exertion or sputum Gastrointestinal Gastrointestinal: Denies nausea or vomiting Musculoskeletal Musculoskeletal: Reports neck pain; Denies back pain or myalgias Integumentary Denies Abrasions or rash Neurologic Neurologic: Reports other Details: Patient does have occasional tingling in the left shoulder but it does not go into the extremity. ; Denies headache(s), paresthesias or weakness Endocrine Endocrinology: Denies polydipsia or polyuria Hematologic/Lymphatic Hematologic/Lymphatic: Denies easy bleeding, easy bruising or lymphadenopathy Allergic/Immunologic Allergic/Immunologic ED: Denies urticaria EXAM Physical Exam Narrative Exam Narrative: Patient is awake alert sitting on the bed looks comfortable. No acute distress. HEENT shows no rash. Mucous membranes moist. Neck shows no bony or central tenderness. There is a little bit of left paraspinal tenderness but most of her tenderness is over the supraspinatus area. When I do axial loading of her neck she does develop some tingling over on the top of her shoulder. When I released the head/loading the tingling goes away. Tingling does not go down her arm. I see no swelling or rash. No lymphadenopathy. Lungs are clear bilaterally. Heart is regular without murmur gallop or rub. Abdomen is soft nontender. Extremities show no weakness. Pulses are normal. She has no rash. No asymmetry. No swelling. Neuro shows normal academic services professional strength. Normal sensation throughout her extremities. Bicep tricep and wrist flexion extension have normal strength. No sign of neurologic deficit. Skin shows no rash pallor or mottling. Const Vital Signs: 10/11/22 20:56 Temperature 97.8 F Temperature Source Temporal Pulse Rate 74 Respiratory Rate 16 Blood Pressure 114/73 Blood Pressure Mean 86 Pulse Ox 100 Oxygen Delivery Method Room Air MDM MDM MDM Narrative Medical decision making narrative: Patient's symptoms are consistent with radiculopathy. But this does not go all the way down the arm. She has no weakness or sensory loss. I would like to try a short course of steroids. I have encouraged her that she needs follow-up with her primary physician so they can take a hold of this problem and help get her a solution. They may get her set into physical therapy as this can be very beneficial for her symptoms. I did review outpatient records through the [place] [facility] prescribing program. She has a single prescription for narcotics in the past. I do not think she is here seeking narcotics. As she has tried some other meds without benefit I will give her a few tablets of pain meds until steroids kick in hopefully in 2 to 3 days. We discussed returning if she develops rash, weakness, numbness down her arms or no other new symptoms. Discharge Plan Triage Chief Complaint: Upper Extremity Injury ED Provider: Magnus Millan Dx/Rx/DC Orders Clinical Impression: Cervical radiculopathy Instructions: ED Radiculopathy, Cervical Prescriptions: New hydrocodone-acetaminophen [hydrocodone-acetaminophen] 5-325 mg tablet 1 tab PO Q4H PRN PRN (Reason: Pain) 2 Days Qty: 5 0RF prednisone 20 mg tablet 60 mg PO DAILY Qty: 15 0RF No Action acetaminophen [Tylenol] 325 mg tablet 650 mg PO ONCE PRN (Reason: Pain) albuterol sulfate 1 INHALER inhaler 1 - 2 puff inhalation Q4H PRN PRN (Reason: Wheezing) Qty: 1 0RF oxycodone 5 mg capsule 5 mg PO Q6H PRN (Reason: pain) 3 Days Qty: 10 0RF Primary Care Provider: Care Physician,No Primary Referrals: Nate,Chantal, DO [Med Staff - Teacher Vocational Training] - 3-5 Days Care Physician,No Primary [Primary Care Provider] - Disposition Disposition: Home, Self Care
[2022-10-11] MEDS: predniSONE 20 MG Tablet 60 MG PO (22:21)
== END 2022-10-11 22:25 | disposition home or self-care (01) ==
PROVIDERS: Emergency Provider Emergency Medicine; Visit Provider Emergency Medicine
DX: M54.12 Radiculopathy, cervical region (principal); Z79.52 Long term (current) use of systemic steroids
CPT/HCPCS: 99282

== ENCOUNTER 2022-11-20 13:01 | Emergency (ER) | payer OTHER, MEDICAID, SELFPAY ==
[2022-11-20 13:02] VITALS: BP 126/80; PULSE 103; RESP 14; TEMP 36.6; O2SAT 97; BMI 20.5
--- NOTE | 2022-11-20 13:10 | EDS_ITS ---
HPI History of Present Illness Chief Complaint: Nausea/Vomiting Informant: patient Onset/Context/Timing Onset: Today Current Severity: Moderate Maximum Severity: Moderate Narrative Narrative: Patient presents secondary to nausea and vomiting. She states she woke around 4 AM this morning with nausea and vomiting. She is not been able to keep anything down since. She denies diarrhea. She is abdominal cramping. No fever or chills have been noted. She ate tacos for dinner last evening. Her boyfriend and daughter have had no symptoms after eating the same food. Her son did vomit once but seems to be okay at this time. PFSH PFS Medical History Alcohol use Anxiety Back pain Bronchitis with influenza Easy bruising Heartburn Hypotension Injury of head and neck Leg cramps Loss of consciousness Marijuana use Restless legs Shortness of breath on exertion SROM (spontaneous rupture of membranes) Syncope Vaginal delivery Vapes nicotine containing substance Home Medications albuterol sulfate 90 mcg/actuation aerosol inhaler 1 - 2 puff inhalation Q4H PRN PRN Wheezing ##1 04/15/20 [Rx Last Taken Unknown] acetaminophen 325 mg tablet (Tylenol) 650 mg PO ONCE PRN Pain 02/17/22 [History Last Taken Unknown] oxycodone 5 mg capsule 5 mg PO Q6H PRN pain 3 days #10 caps 03/06/22 [Rx Last Taken Unknown] hydrocodone-acetaminophen 5-325mg 5mg-325mg 1 tab PO Q4H PRN PRN Pain 2 days #5 TABLETS 10/11/22 [Rx Last Taken Unknown] prednisone 20 mg tablet 60 mg PO DAILY #15 TABLETS 10/11/22 [Rx Last Taken Unknown] dicyclomine 10 mg capsule 20 mg PO TID PRN PRN abdominal cramping #20 CAPSULES 11/20/22 [Rx Last Taken Unknown] ondansetron 4 mg disintegrating tablet 4 mg PO Q8H PRN PRN Nausea #10 tabs 11/20/22 [Rx Last Taken Unknown] Allergy/AdvReac Type Severity Reaction Status Date / Time No Known Allergies Allergy Verified 11/20/22 13:02 Family History Mother Heart disease Cancer skin Grandmother Hypertension Seizures Thyroid disorder Cancer skin Grandfather Cancer skin Surgical History History of tonsillectomy History of umbilical hernia repair [place] teeth removed Social History Smoking Status: Current every day smoker tobacco type: e-cigarettes alcohol intake: never substance use type: does not use ROS ROS ED Constitutional Constitutional ED: Denies chills or fever(s) Eyes Eyes: Denies discharge from eye(s) ENT ENT ED: Denies discharge from eye(s), rhinorrhea or sore throat Cardiovascular Cardiovascular: Denies chest pain or palpitations Respiratory/Chest Respiratory/Chest: Denies cough or dyspnea Gastrointestinal Gastrointestinal: Reports abdominal pain, nausea and vomiting; Denies diarrhea Genitourinary Genitourinary ED: Denies difficulty urinating or dysuria Musculoskeletal Musculoskeletal: Denies back pain or extremity pain Integumentary Denies Abrasions or rash Neurologic Neurologic: Denies headache(s) or weakness Psychiatric Psychiatric: Denies anxiety or depression Allergic/Immunologic Allergic/Immunologic ED: Denies lip swelling or urticaria EXAM Physical Exam Const Vital Signs: 11/20/22 13:02 Temperature 98 F Temperature Source Temporal Pulse Rate 103 H Respiratory Rate 14 Blood Pressure 126/80 H Blood Pressure Mean 95 Pulse Ox 97 Oxygen Delivery Method Room Air Positive well nourished and well developed General Appearance ED: well developed HEENT Reports normocephalic and head/scalp atraumatic Eyes PERRL and EOMs intact bilaterally Neck supple Chest Wall inspection of chest normal and palpation of chest normal Resp normal respiratory effort and clear to auscultation bilaterally Cardio regular rate and regular rhythm GI GI Narrative: Abdomen is soft with minimal diffuse tenderness. No guarding or rebound. Hypoactive but present bowel sounds are noted. Palpation: soft Extremity normal to inspection Neuro oriented x3 and no sensory deficits noted Sensorium / Orientation: alert Motor Exam: strength 5/5 throughout Psych mental status grossly normal Skin no rashes or lesions noted MDM MDM MDM Narrative Medical decision making narrative: Patient given IV fluids along with Zofran and Bentyl. Labwork obtained to evaluate for leukocytosis, anemia, and electrolyte derangement. Lab Data Attestation: I reviewed the patient's lab results. Labs: Laboratory Results - last 24 hr 11/20/22 11/20/22 11/20/22 13:45 13:45 13:45 WBC 12.2 H RBC 4.39 Hgb 14.2 Hct 40.3 MCV 91.8 MCH 32.3 H MCHC 35.2 RDW Std Deviation 41.1 RDW Coeff of Tony 12.1 Plt Count 139 L MPV 11.3 Immature Gran % (Auto) 0.200 Neut % (Auto) 94.9 H Lymph % (Auto) 2.4 L Jackson % (Auto) 2.3 Eos % (Auto) 0.0 Baso % (Auto) 0.2 Absolute Neuts (auto) 11.6 H Absolute Lymphs (auto) 0.29 L Nucleated RBC % 0 Sodium 140 Potassium 3.5 Chloride 110 H Carbon Dioxide 24.0 Anion Gap 6 BUN 16 Creatinine 0.73 Estim Creat Clear Calc 102.93 Est GFR (MDRD) Af Amer 127 Est GFR (MDRD) Non-Af 105 BUN/Creatinine Ratio 21.9 H Glucose 113 H Calcium 9.0 Serum , Qual NEGATIVE Treatment and Re-Evaluation :: CBC was a white count of 12.2 with 94% neutrophils. Hemoglobin normal at 14.2. Chemistry studies unremarkable. test is negative. On repeat evaluation patient does have some improvement with the initial round of medication. At this time she is able to tolerate p.o. fluids. I believe her mild leukocytosis is secondary to demargination from vomiting. Abdomen is benign with no focal tenderness. She will be treated with Zofran and Bentyl at home. Return instructions provided. Discharge Plan Triage Chief Complaint: Nausea/Vomiting Other Complaint: Constipation ED Provider: Mckenna Warren Dx/Rx/DC Orders Clinical Impression: Vomiting Instructions: ED Vomiting (Adult) Prescriptions: New ondansetron 4 mg tablet,disintegrating 4 mg PO Q8H PRN PRN (Reason: Nausea) Qty: 10 0RF dicyclomine 10 mg capsule 20 mg PO TID PRN PRN (Reason: abdominal cramping) Qty: 20 0RF No Action acetaminophen [Tylenol] 325 mg tablet 650 mg PO ONCE PRN (Reason: Pain) albuterol sulfate 1 INHALER inhaler 1 - 2 puff inhalation Q4H PRN PRN (Reason: Wheezing) Qty: 1 0RF oxycodone 5 mg capsule 5 mg PO Q6H PRN (Reason: pain) 3 Days Qty: 10 0RF hydrocodone-acetaminophen [hydrocodone-acetaminophen] 5-325 mg tablet 1 tab PO Q4H PRN PRN (Reason: Pain) 2 Days Qty: 5 0RF prednisone 20 mg tablet 60 mg PO DAILY Qty: 15 0RF Stand Alone Forms: ED Work / School Excuse Primary Care Provider: Care Physician,No Primary Referrals: Morales Whitaker MD [Med Staff - Active Staff] - As Needed Care Physician,No Primary [Primary Care Provider] - Disposition Disposition: Home, Self Care
[2022-11-20] MEDS: 0.9% Normal Saline 1,000 ML 1000 ML IV (13:37)
[2022-11-20] MEDS: Ondansetron 4 MG/2 ML Vial IV (13:37)
[2022-11-20] MEDS: Dicyclomine 20 MG/2 ML Vial IM (13:38)
[2022-11-20 13:56] LABS: Absolute Lymphocyte Count 0.29 X10^3/uL (0.83-4.51); Absolute Neutrophil Count 11.6 X10^3/uL (2.0-7.7); Basophil# 0.02 X10^3/uL; Basophil% 0.2 % (0-1); Hematocrit 40.3 % (37-47); Hemoglobin 14.2 g/dL (12.0-15.0); Lymphocyte # 0.29 X10^3/ul (0.83-4.51); Lymphocyte % 2.4 % (19-41); Mean Corp Hgb Conc 35.2 g/dL (32-36); Mean Corpuscular Hgb 32.3 pg (27.0-32.0); Mean Corpuscular Volume 91.8 fL (81-99); Mean Platelet Vol. 11.3 fl (6.2-12.0); Monocyte# 0.28 X10^3/uL; Monocyte% 2.3 % (0-10); NRBC Flagged by Analyzer 0 % (0-5); Neutrophil # 11.56 X10^3/uL (2.7-7.7); Neutrophil % 94.9 % (47-70); POSITIVE DIFFERENTIAL YES; Platelet Count 139 K/mm3 (150-450); RBC Distribution Width CV 12.1 % (11.6-14.6); RBC Distribution Width SD 41.1 fl (35.1-43.9); Red Blood Count 4.39 M/mm3 (4.2-5.4); White Blood Count 12.2 K/mm3 (4.4-11.0)
[2022-11-20 14:06] LABS: Differential Indicated SCAN CRITERIA MET
[2022-11-20 14:08] LABS: Internal QC Validated? YES +Cl - CLEAR BKGD; Pregnancy, Serum, hCG Quali. NEGATIVE Negative
[2022-11-20 14:10] LABS: Anion Gap 6 (5-15); BUN 16 mg/dL (7-18); BUN/Creat Ratio 21.9 RATIO (10-20); Chloride 110 mmol/L (98-107); Creatinine, Serum 0.73 mg/dL (0.55-1.02); EST Glomerular Filtration Rate 105 mL/min (>60); Est Glom Filt Rate - Afr Amer 127 mL/min (>60); Estimated Creatinine Clearance 102.93 ml/min; Glucose 113 mg/dL (74-106); Potassium 3.5 mmol/L (3.5-5.1); Sodium Level 140 mmol/L (136-145)
[2022-11-20] MEDS: 0.9% Normal Saline 1,000 ML 150 ML IV (14:50)
[2022-11-20 14:53] VITALS: BP 103/63; PULSE 62; RESP 16; O2SAT 99
[2022-11-20 14:56] VITALS: BP 103/63; PULSE 72; RESP 15; O2SAT 98
== END 2022-11-20 14:58 | disposition home or self-care (01) ==
PROVIDERS: Emergency Provider Emergency Medicine; Visit Provider Emergency Medicine
DX: R11.2 Nausea with vomiting, unspecified (principal); R10.9 Unspecified abdominal pain; F17.290 Nicotine dependence, other tobacco product, uncomplicated
CPT/HCPCS: 80048; 84703; 85025; 96361; 96372; 96374; 99283; J7030; A4216; J2405

== ENCOUNTER 2023-04-16 17:51 | Emergency (ER) | payer OTHER, MEDICAID, SELFPAY ==
[2023-04-16 17:52] VITALS: BP 132/80; PULSE 87; RESP 16; TEMP 36.6; O2SAT 98; BMI 19.1
--- NOTE | 2023-04-16 19:17 | EDS_ITS ---
HPI History of Present Illness Chief Complaint: Chest Other Informant: patient Narrative Narrative: Presents with right-sided lower chest pain. She states last night she was coming down the steps. She slipped. She grabbed a railing that caused her to spin around and the right side of her ribs hit the banister. She has had pain in that area since. She is not actually short of breath but it does hurt to breathe. She uses albuterol but usually it is only when she is sick. She is not having wheezing. She does not feel short of breath and does not feel as though she needs her albuterol. She has been eating and drinking since this happened. That is normal. She is not having abdominal pain. She has urinated normally. She has never seen blood or darkening of the urine. The only thing that really hurts of the ribs. She states they hurt mostly in the posterior lateral aspect but it does radiate around a little bit to the front. She states she coughed earlier today and thought she felt some clicking in the area. PFSH PFSH Medical History Alcohol use Anxiety Back pain Bronchitis with influenza Easy bruising Heartburn Hypotension Injury of head and neck Leg cramps Loss of consciousness Marijuana use Restless legs Shortness of breath on exertion SROM (spontaneous rupture of membranes) Syncope Vaginal delivery Vapes nicotine containing substance Home Medications albuterol sulfate 90 mcg/actuation aerosol inhaler 1 - 2 puff inhalation Q4H PRN PRN Wheezing ##1 04/15/20 [Rx Last Taken Unknown] acetaminophen 325 mg tablet (Tylenol) 650 mg PO ONCE PRN Pain 02/17/22 [History Last Taken Unknown] oxycodone 5 mg capsule 5 mg PO Q6H PRN pain 3 days #10 caps 03/06/22 [Rx Last Taken Unknown] hydrocodone-acetaminophen 5-325mg 5mg-325mg 1 tab PO Q4H PRN PRN Pain 2 days #5 TABLETS 10/11/22 [Rx Last Taken Unknown] prednisone 20 mg tablet 60 mg (3 x 20 mg) PO DAILY #15 TABLETS 10/11/22 [Rx Last Taken Unknown] dicyclomine 10 mg capsule 20 mg (2 x 10 mg) PO TID PRN PRN abdominal cramping #20 CAPSULES 11/20/22 [Rx Last Taken Unknown] ondansetron 4 mg disintegrating tablet 4 mg PO Q8H PRN PRN Nausea #10 tabs 11/20/22 [Rx Last Taken Unknown] naproxen 500 mg tablet 500 mg PO BID #20 tabs 04/16/23 [Rx Last Taken Unknown] Allergy/AdvReac Type Severity Reaction Status Date / Time No Known Allergies Allergy Verified 04/16/23 17:52 Family History Mother Heart disease Cancer skin Grandmother Hypertension Seizures Thyroid disorder Cancer skin Grandfather Cancer skin Surgical History History of tonsillectomy History of umbilical hernia repair [place] teeth removed Social History Smoking Status: Current every day smoker tobacco type: e-cigarettes alcohol intake: never substance use type: does not use ROS ROS ED ROS Narrative A complete review of systems was performed and is negative except as documented in the history of present illness. Some specific details below. Constitutional: No recent fevers or chills. No malaise. EYE: No discharge, visual complaints, or pain. No eye trauma. ENT: No difficulty swallowing. No swelling. No pain. No reflux symptoms. No facial trauma. CV: See history of present illness. No palpitations. No syncope or presyncope. The fall was mechanical. Respiratory: See history of present illness. She has a rib pain. She states it hurts to breathe but she is not actually short of breath. She has not been wheezing. GI: No abdominal pain. No nausea vomiting diarrhea. No blood in stool. : No frequency dysuria or hematuria. Musculoskeletal: She states although she slipped on the steps, her arms and legs neck and back do not hurt. Skin: No rash. No abrasions. No bruising yet. Neuro: No weakness or numbness. Endocrine: No polyuria or polydipsia. EXAM Physical Exam Narrative Exam Narrative: CONSTITUTIONAL: Patient is nontoxic in appearance. But the patient does look a little bit uncomfortable. However, her breathing looks good. She is not working to breathe. HEENT: No notable trauma. Mucous membranes moist. No facial tenderness. EYES: No conjunctival injection. No proptosis. NECK:No JVD. No stridor. No subcu air. CARDIOVASCULAR: Regular rate. Regular rhythm. No notable murmur. No JVD. RESPIRATORY: No respiratory distress. Patient does have some pain with a deep breath. But her breath sounds do sound normal. I was able to have her take some deep breaths. I do not hear a difference on sides. She does appear to start splinting a little bit. She has reproducible right chest wall tenderness that is mostly in the posterior lateral aspect. No visible bruising yet at this time. I do not feel clicking. But she does have a fair amount of tenderness. But it is all on the ribs not below. GASTROINTESTINAL: Not distended. Bowel sounds are normal. No tenderness. No guarding. No rebound. No palpable mass. No bruit is heard. I kept pressing on abdomen versus ribs. I am not getting abdominal tenderness over near the liver or spleen. No distention. Her abdomen is actually very benign. GENITOURINARY: No tenderness over the bladder. No CVA tenderness. MUSCULOSKELETAL: Atraumatic. No deformities or tenderness. NEUROLOGICAL: Patient is alert and appropriate. No focal deficit noted. SKIN: No noted rashes. No diaphoresis. PSYCHIATRIC: Patient is calm. Mood is appropriate. Const Vital Signs: 04/16/23 17:52 04/16/23 19:11 Temperature 98 F Temperature Source Temporal Pulse Rate 87 Respiratory Rate 16 Respiratory Effort Short of Breath Blood Pressure 132/80 H Blood Pressure Mean 97 Pulse Ox 98 Oxygen Delivery Method Room Air MDM MDM MDM Narrative Medical decision making narrative: My independent her potation the patient's 5 view rib and chest x-ray series shows no sign of pneumothorax. I do not see any obvious rib fracture. Final reading is similar. I have discussed this with the patient. We discussed CAT scan of the abdomen but she has no abdominal tenderness. I do not think this represents hepatic injury. The pain is clearly above this and in the ribs. She is eating and drinking moving bowels and urinating normally. I explained that just because the x-rays are normal does not completely rule out rib fractures. If she still having symptoms these can be reimaged in a couple weeks to see signs of healing. We will get her on nonsteroidals. Ice and rest is the best treatment. Radiography Diagnostic Testing: Clinical Impression(s) from Imaging Studies Ribs w/Chest X-Ray 04/16/23 19:25 IMPRESSION: No evidence of displaced rib fracture. Electronically Signed: Kamaljit James MD at 19:57 EDT , Discharge Plan Triage Chief Complaint: Chest Other ED Provider: Magnus Millan Dx/Rx/DC Orders Clinical Impression: Contusion of right chest wall, Fall from steps Instructions: ED Chest Wall Contusion Prescriptions: New naproxen 500 mg tablet 500 mg PO BID Qty: 20 0RF No Action acetaminophen [Tylenol] 325 mg tablet 650 mg PO ONCE PRN (Reason: Pain) albuterol sulfate 1 INHALER inhaler 1 - 2 puff inhalation Q4H PRN PRN (Reason: Wheezing) Qty: 1 0RF oxycodone 5 mg capsule 5 mg PO Q6H PRN (Reason: pain) 3 Days Qty: 10 0RF hydrocodone-acetaminophen [hydrocodone-acetaminophen] 5-325 mg tablet 1 tab PO Q4H PRN PRN (Reason: Pain) 2 Days Qty: 5 0RF prednisone 20 mg tablet 60 mg PO DAILY Qty: 15 0RF ondansetron 4 mg tablet,disintegrating 4 mg PO Q8H PRN PRN (Reason: Nausea) Qty: 10 0RF dicyclomine 10 mg capsule 20 mg PO TID PRN PRN (Reason: abdominal cramping) Qty: 20 0RF Primary Care Provider: Care Physician,No Primary Referrals: María Means MD [Med Staff - [facility]] - 1 Week if not improving Care Physician,No Primary [Primary Care Provider] - Disposition Disposition: Home, Self Care
--- NOTE | 2023-04-16 19:25 | RAD_ITS ---
INDICATION: Trauma EXAMINATION/TECHNIQUE: X-RAY - XR Ribs Unilateral W/ PA Chest Min 3 Views COMPARISON: Chest x-ray of 04/15/2023. FINDINGS: SOFT TISSUES: No soft tissue swelling or gas. BONES: No displaced fracture. No sclerotic or destructive changes observed. VISUALIZED LUNGS: Clear. No pneumothorax. RAD/Ribs Uni Min 3V w/PA Chest IMPRESSION: No evidence of displaced rib fracture. Electronically Signed: Kamaljit James MD at 19:57 EDT ,
[2023-04-16] MEDS: Naproxen 375 MG Tablet PO (21:04)
== END 2023-04-16 21:08 | disposition home or self-care (01) ==
PROVIDERS: Emergency Provider Emergency Medicine; Visit Provider Emergency Medicine
DX: S20.20XA Contusion of thorax, unspecified, initial encounter (principal); F17.290 Nicotine dependence, other tobacco product, uncomplicated; W10.9XXA Fall (on) (from) unspecified stairs and steps, initial encounter
CPT/HCPCS: 71101; 99282

== ENCOUNTER 2024-02-27 07:31 | Emergency (ER) | payer OTHER, MEDICAID, SELFPAY ==
[2024-02-27 07:32] VITALS: BP 122/96; PULSE 111; RESP 14; TEMP 36.6; O2SAT 99; BMI 21.7
--- NOTE | 2024-02-27 07:44 | EX.ED.DYSGE1 ---
HPI History of Present Illness Chief Complaint: Nausea/Vomiting Narrative Narrative: 23-year-old female G3, currently 6 weeks gestation with confirmed intrauterine presenting with nausea and vomiting. She states it has been worse over the last couple of weeks. She states she was given some B12 and doxylamine however this was not helping her nausea. She states she feels like this is just due to as has been twice before. She does not feel like she is come down with anything viral. She feels a little bit lightheaded. She denies abdominal pain. No urinary or vaginal complaints. No fevers or chills. Patient is supposed to establish with [facility] in [place] next week. [facility] Medical History Marijuana use Alcohol use Easy bruising Restless legs Back pain Injury of head and neck Syncope Loss of consciousness Heartburn Bronchitis with influenza Shortness of breath on exertion Vapes nicotine containing substance Leg cramps Hypotension Vaginal delivery SROM (spontaneous rupture of membranes) Anxiety Home Medications ?Medication ?Instructions ?Recorded ?Last Taken ?Type albuterol sulfate 90 mcg/actuation 1 - 2 puff inhalation Q4H PRN PRN 04/15/20 Unknown Rx aerosol inhaler Wheezing ##1 acetaminophen 325 mg tablet 650 mg PO ONCE PRN Pain 02/17/22 Unknown History (Tylenol) oxycodone 5 mg capsule 5 mg PO Q6H PRN pain 3 days #10 03/06/22 Unknown Rx caps hydrocodone-acetaminophen 5-325mg 1 tab PO Q4H PRN PRN Pain 2 days 10/11/22 Unknown Rx 5mg-325mg #5 TABLETS prednisone 20 mg tablet 60 mg (3 x 20 mg) PO DAILY #15 10/11/22 Unknown Rx TABLETS dicyclomine 10 mg capsule 20 mg (2 x 10 mg) PO TID PRN PRN 11/20/22 Unknown Rx abdominal cramping #20 CAPSULES ondansetron 4 mg disintegrating 4 mg PO Q8H PRN PRN Nausea #10 tabs 11/20/22 Unknown Rx tablet naproxen 500 mg tablet 500 mg PO BID #20 tabs 04/16/23 Unknown Rx ondansetron 4 mg disintegrating 4 mg PO Q8H PRN PRN Nausea #20 tabs 02/27/24 Unknown Rx tablet Allergy/AdvReac Type Severity Reaction Status Date / Time No Known Allergies Allergy Verified 02/27/24 07:34 Family History Mother Heart disease Cancer skin Grandmother Hypertension Seizures Thyroid disorder Cancer skin Grandfather Cancer skin Surgical History History of umbilical hernia repair [place] teeth removed History of tonsillectomy Social History Smoking Status: Former smoker alcohol intake: never substance use type: does not use ROS ROS ED Constitutional Constitutional ED: Denies chills, fever(s) or sweats Eyes Eyes: Denies blurry vision or change in vision ENT ENT ED: Denies ear pain or sore throat Cardiovascular Cardiovascular: Denies chest pain, palpitations or racing heartbeat Respiratory/Chest Respiratory/Chest: Denies cough, dyspnea or sputum Gastrointestinal Gastrointestinal: Reports nausea and vomiting; Denies abdominal pain, constipation or diarrhea Genitourinary Genitourinary ED: Denies dysuria, hematuria or urinary frequency Musculoskeletal Musculoskeletal: Denies arthralgias, myalgias or neck pain Integumentary Denies abscess, Abrasions or rash Neurologic Neurologic: Denies headache(s), paresthesias or weakness Psychiatric Psychiatric: Denies anxiety, depression, suicidal ideation or suicidal thoughts Endocrine Endocrinology: Denies polydipsia or polyuria EXAM Physical Exam Const Vital Signs: 02/27/24 07:32 Temperature 97.9 F Temperature Source Temporal Pulse Rate 111 H Respiratory Rate 14 Blood Pressure 122/96 H Blood Pressure Mean 104 Pulse Ox 99 Oxygen Delivery Method Room Air Positive well nourished General Appearance ED: NAD; Negative for pallor HEENT Reports moist mucous membranes Eyes PERRL and EOMs intact bilaterally Resp normal respiratory effort and clear to auscultation bilaterally Auscultation: Negative for rales, rhonchi or wheezes Cardio regular rate and regular rhythm GI normal to inspection, nondistended, normoactive bowel sounds, non-tender and non-distended Neuro oriented x3 and CN's II-XII intact bilaterally Sensorium / Orientation: alert Motor Exam: strength 5/5 throughout Psych mental status grossly normal Skin no rashes or lesions noted General Skin Exam: Negative for jaundice or pallor MDM MDM MDM Narrative Medical decision making narrative: Patient presenting with nausea and vomiting . She has had confirmed intrauterine already. She does not have any abdominal pain. She does feel as if she is lightheaded because of not drinking as much fluids. Differential includes dehydration, hyperemesis gravidarum, electrolyte abnormalities. Will obtain a CBC to assess white blood cell count, hemoglobin, platelets. BMP to assess renal function and electrolytes. Urinalysis will be obtained. Patient given Zofran 4 mg IV and IV fluids. CBC shows normal white blood cell count, hemoglobin and platelets. Renal function and electrolytes are normal with exception of a slightly low potassium 3.4. Urinalysis negative for infection. On reevaluation patient is feeling much better. She request a work note for today. She is discharged home with Zofran. She is going to follow-up with [facility]. Impression: 1. Hyperemesis gravidarum Lab Data Attestation: I reviewed the patient's lab results. Labs: Laboratory Results - last 24 hr 02/27/24 02/27/24 07:55 08:20 WBC 8.8 RBC 4.27 Hgb 13.3 Hct 39.2 MCV 91.8 MCH 31.1 MCHC 33.9 RDW Std Deviation 42.8 RDW Coeff of Tony 12.9 Plt Count 195 MPV 10.0 Immature Gran % (Auto) 0.300 Neut % (Auto) 73.6 H Lymph % (Auto) 20.5 [place] % (Auto) 4.1 Eos % (Auto) 0.9 Baso % (Auto) 0.6 Absolute Neuts (auto) 6.4 Absolute Lymphs (auto) 1.79 Nucleated RBC % 0 Sodium 137 Potassium 3.4 L Chloride 106 Carbon Dioxide 25.0 Anion Gap 6 BUN 7 Creatinine 0.64 Estim Creat Clear Calc 112.12 Est GFR (MDRD) Af Amer 145 Est GFR (MDRD) Non-Af 120 BUN/Creatinine Ratio 10.9 Glucose 84 Calcium 8.7 Urine Color Yellow Urine Clarity Sl. Cloudy Urine pH 8.0 Ur Specific [place] 1.010 Urine Protein Negative Urine Glucose (UA) Normal Urine Ketones Negative Urine Occult Blood Negative Urine Nitrite Negative Urine Bilirubin Negative Urine Urobilinogen 1 H Ur Leukocyte Esterase 25 H Urine RBC 0 SEEN Urine WBC 0 SEEN Ur Squamous Epith Cells 0-5 SEEN Amorphous Sediment 1+ Urine Bacteria 2+ Urine Mucus 1+ Discharge Plan Triage Chief Complaint: Nausea/Vomiting ED Provider: Antonio Puente Dx/Rx/DC Orders Instructions: ED Hyperemesis Gravidarum Prescriptions: New ondansetron 4 mg tablet,disintegrating 4 mg PO Q8H PRN PRN (Reason: Nausea) Qty: 20 0RF No Action acetaminophen [Tylenol] 325 mg tablet 650 mg PO ONCE PRN (Reason: Pain) albuterol sulfate 1 INHALER inhaler 1 - 2 puff inhalation Q4H PRN PRN (Reason: Wheezing) Qty: 1 0RF oxycodone 5 mg capsule 5 mg PO Q6H PRN (Reason: pain) 3 Days Qty: 10 0RF hydrocodone-acetaminophen [hydrocodone-acetaminophen] 5-325 mg tablet 1 tab PO Q4H PRN PRN (Reason: Pain) 2 Days Qty: 5 0RF prednisone 20 mg tablet 60 mg PO DAILY Qty: 15 0RF ondansetron 4 mg tablet,disintegrating 4 mg PO Q8H PRN PRN (Reason: Nausea) Qty: 10 0RF dicyclomine 10 mg capsule 20 mg PO TID PRN PRN (Reason: abdominal cramping) Qty: 20 0RF naproxen 500 mg tablet 500 mg PO BID Qty: 20 0RF Stand Alone Forms: ED Work / School Excuse Primary Care Provider: Care Physician,No Primary Referrals: Chery Earl MD [Med Staff - Active Staff] - [facility] appointment Care Physician,No Primary [Primary Care Provider] - Print Language: [place] Disposition Disposition: Home, Self Care
[2024-02-27] MEDS: 0.9% Normal Saline (1000mL) 1,000 ML 1000 ML IV (07:51)
[2024-02-27] MEDS: Ondansetron 4 MG/2 ML Vial IV (07:57)
[2024-02-27 08:04] LABS: Absolute Lymphocyte Count 1.79 X10^3/uL (0.83-4.51); Absolute Neutrophil Count 6.4 X10^3/uL (2.0-7.7); Basophil# 0.05 X10^3/uL; Basophil% 0.6 % (0-1); Eosinophil# 0.08 X10^3/uL; Eosinophils% 0.9 % (0-5); Hematocrit 39.2 % (37-47); Hemoglobin 13.3 g/dL (12.0-15.0); Lymphocyte # 1.79 X10^3/ul (0.83-4.51); Lymphocyte % 20.5 % (19-41); Mean Corp Hgb Conc 33.9 g/dL (32-36); Mean Corpuscular Hgb 31.1 pg (27.0-32.0); Mean Corpuscular Volume 91.8 fL (81-99); Monocyte# 0.36 X10^3/uL; Monocyte% 4.1 % (0-10); NRBC Flagged by Analyzer 0 % (0-5); Neutrophil # 6.44 X10^3/uL (2.7-7.7); Neutrophil % 73.6 % (47-70); Platelet Count 195 K/mm3 (150-450); RBC Distribution Width CV 12.9 % (11.6-14.6); RBC Distribution Width SD 42.8 fl (35.1-43.9); Red Blood Count 4.27 M/mm3 (4.2-5.4); White Blood Count 8.8 K/mm3 (4.4-11.0)
[2024-02-27 08:16] LABS: Anion Gap 6 (5-15); BUN 7 mg/dL (7-18); BUN/Creat Ratio 10.9 RATIO (10-20); Calcium,Total 8.7 mg/dL (8.5-10.1); Chloride 106 mmol/L (98-107); Creatinine, Serum 0.64 mg/dL (0.55-1.02); EST Glomerular Filtration Rate 120 mL/min (>60); Est Glom Filt Rate - Afr Amer 145 mL/min (>60); Estimated Creatinine Clearance 112.12 ml/min; Glucose 84 mg/dL (74-106); Potassium 3.4 mmol/L (3.5-5.1); Sodium Level 137 mmol/L (136-145)
[2024-02-27 08:26] LABS: Red Blood Cells-Urine 0 SEEN /hpf (0-5); White Blood Cells 0 SEEN /hpf (0-5)
[2024-02-27 08:29] LABS: Color, Urine Yellow (Yellow); Glucose, Dipstick Normal (Normal); Ketone-Dipstick Negative (Negative); Leukocyte Esterase-Dipstick 25 /ul (Negative); Nitrite-Dipstick Negative (Negative); Occult Blood-Urine Negative /ul (Negative); Protein-Dipstick Negative (Negative); Urine Bilirubin Dipstick Negative (Negative); Urine Clarity Sl. Cloudy (Clear); Urine Urobilinogen 1 mg/dl (Normal)
[2024-02-27 08:39] LABS: Amorphous Sediment 1+; Bacteria 2+ /hpf (None Seen); Mucous, Urine 1+ /hpf (<or=2+); Squamous Epithelial Cells - UA 0-5 SEEN /hpf (5-10)
[2024-02-27 08:51] VITALS: BP 119/69; PULSE 57; RESP 16; TEMP 36.7; O2SAT 100
== END 2024-02-27 08:53 | disposition home or self-care (01) ==
PROVIDERS: Emergency Provider Student in an Organized Health Care Education/Training Program; Visit Provider Student in an Organized Health Care Education/Training Program
DX: O21.0 Mild hyperemesis gravidarum (principal); Z87.891 Personal history of nicotine dependence; Z3A.00 Weeks of gestation of pregnancy not specified
CPT/HCPCS: 80048; 81001; 85025; 96361; 96374; 99284; J7030; A4216; J2405

== ENCOUNTER 2024-03-09 19:48 | Emergency (ER) | payer OTHER, MEDICAID, SELFPAY ==
[2024-03-09 19:49] VITALS: BP 119/93; PULSE 110; RESP 18; TEMP 36.6; O2SAT 100; BMI 20.7
--- NOTE | 2024-03-09 20:27 | EDS_ITS ---
HPI <Dr. Nii Jiménez DO - Last Filed: 03/09/24 23:17> History of Present Illness Chief Complaint: General Illness <YULISSA Leary - Last Filed: 03/09/24 22:24> Narrative Narrative: Patient presenting today due to nausea, vomiting, and lightheadedness. She reports that she is currently 8 weeks , she is G3, P2. She has had 2 transvaginal ultrasounds to confirm intrauterine , she has not yet followed up with OB and has had these ultrasounds obtained via a clinic. She reports that she last had an ultrasound on Sunday, she was told that she could be having a miscarriage because the heart beat was not detected in the gestation size appeared to be smaller than 8 weeks. She has not had any vaginal bleeding. Reports that she has had slight pelvic cramping today. Shorts that she has had nausea and vomiting throughout her , she was taking Zofran but ran out today. She denies any fevers, chills and, urinary symptoms. [facility] <Dr. Nii Jiménez DO - Last Filed: 03/09/24 23:17> [facility] Medical History Marijuana use Alcohol use Easy bruising Restless legs Back pain Injury of head and neck Syncope Loss of consciousness Heartburn Bronchitis with influenza Shortness of breath on exertion Vapes nicotine containing substance Leg cramps Hypotension Vaginal delivery SROM (spontaneous rupture of membranes) Anxiety Home Medications ?Medication ?Instructions ?Recorded ?Last Taken ?Type albuterol sulfate 90 mcg/actuation 1 - 2 puff inhalation Q4H PRN PRN 04/15/20 Unknown Rx aerosol inhaler Wheezing ##1 acetaminophen 325 mg tablet 650 mg PO ONCE PRN Pain 02/17/22 Unknown History (Tylenol) oxycodone 5 mg capsule 5 mg PO Q6H PRN pain 3 days #10 03/06/22 Unknown Rx caps hydrocodone-acetaminophen 5-325mg 1 tab PO Q4H PRN PRN Pain 2 days 10/11/22 Unknown Rx 5mg-325mg #5 TABLETS prednisone 20 mg tablet 60 mg (3 x 20 mg) PO DAILY #15 10/11/22 Unknown Rx TABLETS dicyclomine 10 mg capsule 20 mg (2 x 10 mg) PO TID PRN PRN 11/20/22 Unknown Rx abdominal cramping #20 CAPSULES ondansetron 4 mg disintegrating 4 mg PO Q8H PRN PRN Nausea #10 tabs 11/20/22 Unknown Rx tablet naproxen 500 mg tablet 500 mg PO BID #20 tabs 04/16/23 Unknown Rx ondansetron 4 mg disintegrating 4 mg PO Q8H PRN PRN Nausea #20 tabs 02/27/24 Unknown Rx tablet metoclopramide HCl 10 mg tablet 10 mg PO Q6H PRN nausea and 03/09/24 Unknown Rx (Reglan) vomiting #15 tabs Allergy/AdvReac Type Severity Reaction Status Date / Time No Known Allergies Allergy Verified 03/09/24 19:51 Family History Mother Heart disease Cancer skin Grandmother Hypertension Seizures Thyroid disorder Cancer skin Grandfather Cancer skin Surgical History History of umbilical hernia repair Bowers teeth removed History of tonsillectomy Social History Smoking Status: Former smoker alcohol intake: never substance use type: does not use ROS <YULISSA Leary - Last Filed: 03/09/24 22:24> ROS ED Constitutional Constitutional ED: Denies chills or fever(s) Cardiovascular Cardiovascular: Denies chest pain Respiratory/Chest Respiratory/Chest: Denies dyspnea Gastrointestinal Gastrointestinal: Reports nausea, vomiting and other Details: Pelvic cramping Genitourinary Genitourinary ED: Denies dysuria, hematuria or urinary frequency Musculoskeletal Musculoskeletal: Denies arthralgias or myalgias Integumentary Denies rash Neurologic Neurologic: Denies weakness EXAM <Dr. Nii Jiménez, DO - Last Filed: 03/09/24 23:17> Physical Exam Const Vital Signs: 03/09/24 19:49 03/09/24 20:43 03/09/24 21:49 Temperature 97.9 F Temperature Source Temporal Pulse Rate 110 H 80 Respiratory Rate 18 17 Respiratory Effort Normal Non-Labored Respiratory Pattern Normal Blood Pressure 119/93 H 109/68 Blood Pressure Mean 101 81 Pulse Ox 100 100 Oxygen Delivery Method Room Air Room Air 03/09/24 23:00 Temperature Temperature Source Pulse Rate 62 Respiratory Rate Respiratory Effort Respiratory Pattern Blood Pressure 109/80 Blood Pressure Mean 89 Pulse Ox 100 Oxygen Delivery Method Room Air <YULISSA Leary - Last Filed: 03/09/24 22:24> Physical Exam Const Vital Signs: 03/09/24 19:49 03/09/24 20:43 03/09/24 21:49 Temperature 97.9 F Temperature Source Temporal Pulse Rate 110 H 80 Respiratory Rate 18 17 Respiratory Effort Normal Non-Labored Respiratory Pattern Normal Blood Pressure 119/93 H 109/68 Blood Pressure Mean 101 81 Pulse Ox 100 100 Oxygen Delivery Method Room Air Room Air 03/09/24 23:00 Temperature Temperature Source Pulse Rate 62 Respiratory Rate Respiratory Effort Respiratory Pattern Blood Pressure 109/80 Blood Pressure Mean 89 Pulse Ox 100 Oxygen Delivery Method Room Air Positive well nourished, well developed and no apparent distress General Appearance ED: well developed HEENT Reports normocephalic and head/scalp atraumatic Mouth ED: Yes moist mucous membranes normal Eyes PERRL and EOMs intact bilaterally Neck full ROM and supple Chest Wall inspection of chest normal Resp normal respiratory effort and clear to auscultation bilaterally Cardio regular rate and regular rhythm GI soft to palpation, non-tender, non-distended and no masses Back/Spine normal ROM and normal to inspection Extremity normal to inspection and full ROM Neuro oriented x3, CN's II-XII intact bilaterally, moves all extremities, no focal motor deficits and no sensory deficits noted Sensorium / Orientation: awake and alert Psych mental status grossly normal and thought process normal Skin no rashes or lesions noted and no wounds [facility] <Dr. Nii Jiménez DO - Last Filed: 03/09/24 23:17> [facility] Narrative Medical decision making narrative: Patient presenting with nausea, vomiting, concerns for possible miscarriage. She has not had any vaginal bleeding. She had an ultrasound that did not detect a heartbeat. She has not yet followed with OB but has seen Dr. Burgos in the past. Her abdomen is soft and nontender. Basic labs obtained, WBC is 11.9, potassium 3.4. Her hCG is 109,413, UA negative for UTI. She was given IV fluids and Zofran and on reexamination reports improvement of her symptoms but is still feeling slightly nauseous. She will be given IM Phenergan. I spoke with Anahy Weeks, founder and ceo who wants patient to call the office tomorrow to set up an appointment to have a repeat ultrasound obtained. Patient will be reexamined to ensure she is tolerating p.o. fluids, I will send her with a prescription for Phenergan. She will be discharged in stable condition. I have personally performed a face to face assessment of the patient and have reviewed the DAO Note. I performed a substantive portion of the visit including all aspects of the following. My garcia findings include: History is [patient presents to the emergency department with complaint of nausea and vomiting and possible miscarriage. Patient states that she think she is about 8 weeks . She had a ultrasound about a week ago that showed a heartbeat and intrauterine . Patient had another ultrasound yesterday at a facility in [place] that they did not see heartbeat. Patient had been on Zofran but ran out and today has been throwing up. She complains of some lower abdominal cramping. She denies any vaginal bleeding. She denies dysuria urgency or frequency.] Patient is Exam is [HEENT-PERRLA, EOMI. Cranial nerves II through XII grossly intact. TMs clear. Mucous membranes moist. No adenopathy. Cardiovascular-regular rate and rhythm without murmur or ectopy Lungs-clear to auscultation, chest wall stable without crepitus or subcu emphysema Abdomen-normoactive bowel sounds, soft. Patient has some mild suprapubic tenderness on exam. No rebound or rigidity or peritoneal signs. Extremities-intact ?4, normal range of motion, normal pulses, atraumatic] Medical Decison Making [patient had an IV line established. She has been given Zofran. Continued complaint of nausea and was given Phenergan. Patient had a CBC with differential that showed a low white count of 11.9 with hemoglobin 12 and platelet count of 168. Chemistries unremarkable. hCG was 109,413. Urinalysis was unremarkable. At this point discussed case with Anahy Lantigua who is covering for Dr. Burgos's group. She recommended the patient follow-up with her office. At this time she not having any vaginal bleeding. She had an ultrasound yesterday. Patient advised to return if persistent heavy bleeding, worsening pain, or condition should worsen anyway.] Patient's blood type is O- but I do not think she needs RhoGAM at this time as she has had no bleeding. She does not plan on having any more kids and this was actually unplanned. Other additions or changes: [None] Lab Data Labs: Laboratory Results - last 24 hr 03/09/24 03/09/24 20:40 21:07 WBC 11.9 H RBC 3.81 L Hgb 12.2 Hct 36.0 L MCV 94.5 MCH 32.0 MCHC 33.9 RDW Std Deviation 45.1 H RDW Coeff of Tony 13.1 Plt Count 168 MPV 11.0 Immature Gran % (Auto) 0.300 Neut % (Auto) 77.3 H Lymph % (Auto) 15.9 L [place] % (Auto) 5.3 Eos % (Auto) 0.9 Baso % (Auto) 0.3 Absolute Neuts (auto) 9.2 H Absolute Lymphs (auto) 1.89 Nucleated RBC % 0 Sodium 137 Potassium 3.4 L Chloride 107 Carbon Dioxide 25.0 Anion Gap 5 BUN 10 Creatinine 0.58 Estim Creat Clear Calc 129.15 Est GFR (MDRD) Af Amer 163 Est GFR (MDRD) Non-Af 135 BUN/Creatinine Ratio 17.2 Glucose 85 Calcium 8.6 HCG, Quant 418786 H Urine Color Yellow Urine Clarity Cloudy Urine pH 7.0 Ur Specific [place] 1.015 Urine Protein Negative Urine Glucose (UA) Normal Urine Ketones 5 H Urine Occult Blood Negative Urine Nitrite Negative Urine Bilirubin Negative Urine Urobilinogen 4 H Ur Leukocyte Esterase Negative Urine RBC 0 SEEN Urine WBC 0-5 SEEN Ur Squamous Epith Cells 0-5 SEEN Amorphous Sediment 2+ Urine Bacteria 0 SEEN Urine Mucus 0 SEEN <YULISSA Leary - Last Filed: 03/09/24 22:24> [facility] MDM Narrative Medical decision making narrative: Patient presenting with nausea, vomiting, concerns for possible miscarriage. She has not had any vaginal bleeding. She had an ultrasound that did not detect a heartbeat. She has not yet followed with OB but has seen Dr. Burgos in the past. Her abdomen is soft and nontender. Basic labs obtained, WBC is 11.9, potassium 3.4. Her hCG is 109,413, UA negative for UTI. She was given IV fluids and Zofran and on reexamination reports improvement of her symptoms but is still feeling slightly nauseous. She will be given IM Phenergan. I spoke with Anahy Weeks, founder and ceo who wants patient to call the office tomorrow to set up an appointment to have a repeat ultrasound obtained. Patient will be reexamined to ensure she is tolerating p.o. fluids, I will send her with a prescription for Phenergan. She will be discharged in stable condition. I have personally performed a face to face assessment of the patient and have reviewed the DAO Note. I performed a substantive portion of the visit including all aspects of the following. My garcia findings include: History is [patient presents to the emergency department with complaint of nausea and vomiting and possible miscarriage. Patient states that she think she is about 8 weeks . She had a ultrasound about a week ago that showed a heartbeat and intrauterine . Patient had another ultrasound yesterday at a facility in [place] that they did not see heartbeat. Patient had been on Zofran but ran out and today has been throwing up. She complains of some lower abdominal cramping. She denies any vaginal bleeding. She denies dysuria urgency or frequency.] Patient is Exam is [HEENT-PERRLA, EOMI. Cranial nerves II through XII grossly intact. TMs clear. Mucous membranes moist. No adenopathy. Cardiovascular-regular rate and rhythm without murmur or ectopy Lungs-clear to auscultation, chest wall stable without crepitus or subcu emphysema Abdomen-normoactive bowel sounds, soft. Patient has some mild suprapubic tenderness on exam. No rebound or rigidity or peritoneal signs. Extremities-intact ?4, normal range of motion, normal pulses, atraumatic] Medical Decison Making [ ] Other additions or changes: [None] Lab Data Attestation: I reviewed the patient's lab results. Labs: Laboratory Results - last 24 hr 03/09/24 03/09/24 20:40 21:07 WBC 11.9 H RBC 3.81 L Hgb 12.2 Hct 36.0 L MCV 94.5 MCH 32.0 MCHC 33.9 RDW Std Deviation 45.1 H RDW Coeff of Tony 13.1 Plt Count 168 MPV 11.0 Immature Gran % (Auto) 0.300 Neut % (Auto) 77.3 H Lymph % (Auto) 15.9 L [place] % (Auto) 5.3 Eos % (Auto) 0.9 Baso % (Auto) 0.3 Absolute Neuts (auto) 9.2 H Absolute Lymphs (auto) 1.89 Nucleated RBC % 0 Sodium 137 Potassium 3.4 L Chloride 107 Carbon Dioxide 25.0 Anion Gap 5 BUN 10 Creatinine 0.58 Estim Creat Clear Calc 129.15 Est GFR (MDRD) Af Amer 163 Est GFR (MDRD) Non-Af 135 BUN/Creatinine Ratio 17.2 Glucose 85 Calcium 8.6 HCG, Quant 590227 H Urine Color Yellow Urine Clarity Cloudy Urine pH 7.0 Ur Specific [place] 1.015 Urine Protein Negative Urine Glucose (UA) Normal Urine Ketones 5 H Urine Occult Blood Negative Urine Nitrite Negative Urine Bilirubin Negative Urine Urobilinogen 4 H Ur Leukocyte Esterase Negative Urine RBC 0 SEEN Urine WBC 0-5 SEEN Ur Squamous Epith Cells 0-5 SEEN Amorphous Sediment 2+ Urine Bacteria 0 SEEN Urine Mucus 0 SEEN Discharge Plan Triage Chief Complaint: General Illness ED Midlevel Provider: Jessie Calles ED Provider: Nii Jiménez Dx/Rx/DC Orders Clinical Impression: Light-headed, Nausea, Instructions: ED Hyperemesis Gravidarum, Miscarriage Threatened Prescriptions: New metoclopramide HCl [Reglan] 10 mg tablet 10 mg PO Q6H PRN (Reason: nausea and vomiting) Qty: 15 0RF No Action acetaminophen [Tylenol] 325 mg tablet 650 mg PO ONCE PRN (Reason: Pain) albuterol sulfate 1 INHALER inhaler 1 - 2 puff inhalation Q4H PRN PRN (Reason: Wheezing) Qty: 1 0RF oxycodone 5 mg capsule 5 mg PO Q6H PRN (Reason: pain) 3 Days Qty: 10 0RF hydrocodone-acetaminophen [hydrocodone-acetaminophen] 5-325 mg tablet 1 tab PO Q4H PRN PRN (Reason: Pain) 2 Days Qty: 5 0RF prednisone 20 mg tablet 60 mg PO DAILY Qty: 15 0RF ondansetron 4 mg tablet,disintegrating 4 mg PO Q8H PRN PRN (Reason: Nausea) Qty: 10 0RF dicyclomine 10 mg capsule 20 mg PO TID PRN PRN (Reason: abdominal cramping) Qty: 20 0RF naproxen 500 mg tablet 500 mg PO BID Qty: 20 0RF ondansetron 4 mg tablet,disintegrating 4 mg PO Q8H PRN PRN (Reason: Nausea) Qty: 20 0RF Primary Care Provider: Michelle Bashir NP Referrals: Michelle Bashir NP, [facility] [Primary Care Provider] - Activity Restrictions/Additional Instructions: Please follow-up with Dr. Burgos at [phone]. Please return for any worsening of your symptoms or any vaginal bleeding. Print Language: German Disposition Disposition: Home, Self Care
[2024-03-09] MEDS: 0.9% Normal Saline (1000mL) 1,000 ML 999 ML IV (20:44)
[2024-03-09] MEDS: Ondansetron 4 MG/2 ML Vial IV (20:44)
[2024-03-09 20:50] LABS: Absolute Lymphocyte Count 1.89 X10^3/uL (0.83-4.51); Absolute Neutrophil Count 9.2 X10^3/uL (2.0-7.7); Basophil# 0.03 X10^3/uL; Basophil% 0.3 % (0-1); Eosinophil# 0.11 X10^3/uL; Eosinophils% 0.9 % (0-5); Hemoglobin 12.2 g/dL (12.0-15.0); Lymphocyte # 1.89 X10^3/ul (0.83-4.51); Lymphocyte % 15.9 % (19-41); Mean Corp Hgb Conc 33.9 g/dL (32-36); Mean Corpuscular Volume 94.5 fL (81-99); Monocyte# 0.63 X10^3/uL; Monocyte% 5.3 % (0-10); NRBC Flagged by Analyzer 0 % (0-5); Neutrophil # 9.23 X10^3/uL (2.7-7.7); Neutrophil % 77.3 % (47-70); Platelet Count 168 K/mm3 (150-450); RBC Distribution Width CV 13.1 % (11.6-14.6); RBC Distribution Width SD 45.1 fl (35.1-43.9); Red Blood Count 3.81 M/mm3 (4.2-5.4); White Blood Count 11.9 K/mm3 (4.4-11.0)
[2024-03-09 21:06] LABS: Anion Gap 5 (5-15); BUN 10 mg/dL (7-18); BUN/Creat Ratio 17.2 RATIO (10-20); Calcium,Total 8.6 mg/dL (8.5-10.1); Chloride 107 mmol/L (98-107); Creatinine, Serum 0.58 mg/dL (0.55-1.02); EST Glomerular Filtration Rate 135 mL/min (>60); Est Glom Filt Rate - Afr Amer 163 mL/min (>60); Estimated Creatinine Clearance 129.15 ml/min; Glucose 85 mg/dL (74-106); Potassium 3.4 mmol/L (3.5-5.1); Sodium Level 137 mmol/L (136-145)
[2024-03-09 21:11] LABS: Bacteria 0 SEEN /hpf (None Seen); Mucous, Urine 0 SEEN /hpf (<or=2+); Red Blood Cells-Urine 0 SEEN /hpf (0-5)
[2024-03-09 21:14] LABS: Color, Urine Yellow (Yellow); Glucose, Dipstick Normal (Normal); Ketone-Dipstick 5 mg/dl (Negative); Leukocyte Esterase-Dipstick Negative /ul (Negative); Nitrite-Dipstick Negative (Negative); Occult Blood-Urine Negative /ul (Negative); Protein-Dipstick Negative (Negative); Specific Gravity, Urine 1.015 (1.002-1.030); Urine Bilirubin Dipstick Negative (Negative); Urine Clarity Cloudy (Clear); Urine Urobilinogen 4 mg/dl (Normal)
[2024-03-09 21:21] LABS: Amorphous Sediment 2+; Squamous Epithelial Cells - UA 0-5 SEEN /hpf (5-10); White Blood Cells 0-5 SEEN /hpf (0-5)
[2024-03-09 21:26] LABS: hCG Titer Quant., Serum 109413 mIU/mL (1-3)
[2024-03-09 21:49] VITALS: BP 109/68; PULSE 80; RESP 17; O2SAT 100
[2024-03-09] MEDS: proMETHazine 25 MG/ML Syringe 12.5 MG IM (22:34)
[2024-03-09 23:00] VITALS: BP 109/80; PULSE 62; O2SAT 100
[2024-03-09 23:23] VITALS: BP 109/88; PULSE 74; RESP 16; TEMP 36.6; O2SAT 99
== END 2024-03-09 23:24 | disposition home or self-care (01) ==
PROVIDERS: Physician Assistant; Emergency Provider Emergency Medicine; PCP Nurse Practitioner Family; Visit Provider Emergency Medicine
DX: O99.891 Other specified diseases and conditions complicating pregnancy (principal); O21.9 Vomiting of pregnancy, unspecified; Z87.891 Personal history of nicotine dependence; R42 Dizziness and giddiness; Z3A.08 8 weeks gestation of pregnancy; R10.2 Pelvic and perineal pain
CPT/HCPCS: 80048; 81001; 84702; 85025; 96361; 96372; 96374; 99282; J7030; J2405

== ENCOUNTER 2024-03-15 15:48 | Emergency (ER) | payer OTHER, MEDICAID, SELFPAY ==
[2024-03-15 15:48] VITALS: BP 143/102; PULSE 114; RESP 18; TEMP 36.1; O2SAT 100; BMI 21.4
--- NOTE | 2024-03-15 16:01 | US_ITS ---
STUDY: FIRST TRIMESTER OBSTETRICAL ULTRASOUND REASON FOR EXAM: Female, 23 years old abdominal cramping LMP: TECHNIQUE: Transvaginal TECHNICAL QUALITY: Adequate. PRIOR ULTRASOUND: None. FINDINGS: There is visualization of a single gestational sac in a normal intrauterine position. The mean sac diameter (MSD) measures 3.62 cm, indicating an estimated gestational age (EGA) of 9 weeks, 0 days. The gestational sac shape is within normal limits. There is a visualized yolk sac. The yolk sac measures 2.6 mm. The placenta is non-visualized. pole is observed. The crown-rump length (CRL) measures 5.2 mm, indicating an estimated gestational age (EGA) of 6 weeks, 3 days. There is no demonstrated cardiac activity.. There is heterogeneous density adjacent to the sac likely representing a large subchorionic bleed The estimated gestation age (EGA) by LMP is 9 weeks, 1 days. The estimated date of delivery (PLACIDO) by LMP is October 17, 2024. The estimated gestation age (EGA) by US is 6 weeks, 3 days. The estimated date of delivery (PLACIDO) by US is . The uterus measures 12.4 x 9.4 x 6.5 cm. There is no demonstrated uterine fibroid. The cervix is closed. The right ovary measures 3.4 x 1.5 x 1.6 cm. There is no right ovarian cyst. There is no visualized right adnexal mass or complex lesion. The left ovary measures 3.2 x 2.3 x 1.9 cm. There is a cyst measuring 1.7 x 1.6 cm likely corpus luteum. There is no visualized left adnexal mass or complex lesion. There is no fluid in the cul de sac. US/Transvaginal w/Preg US IMPRESSION: Intrauterine gestation which is small for maternal dates without cardiac activity likely representing spontaneous demise in utero association with subchorionic bleed. Clinical correlation recommended and follow-up studies if indicated Electronically Signed: Veto Padron MD at 20:50 EDT ,
--- NOTE | 2024-03-15 16:04 | EX.ED.DYSGE1 ---
HPI <DIPESH Sky - Last Filed: 03/15/24 20:58> History of Present Illness Chief Complaint: Dizziness Narrative Narrative: Patient is a 23-year-old female who is a 3 para 2 whose last menstrual cycle was February 01, 2024 presented to the emergency department with lower abdominal cramping, dizziness. Patient states that she has been seeing [facility] SLASHER MACHINE OPERATOR here in [place], they state that their last ultrasound which was last week she was roughly 8 weeks however the fetus was only 6 weeks and there was no heartbeat. They believe that she might be having a miscarriage. She was supposed to follow-up in 3 to 4 days. Patient was seen here on February 26 for some similar symptoms, at that time there was no imaging done. Patient states that the cramping is getting worse and she is here for evaluation. PFSH <DIPESH Sky - Last Filed: 03/15/24 20:58> [facility] Medical History Marijuana use Alcohol use Easy bruising Restless legs Back pain Injury of head and neck Syncope Loss of consciousness Heartburn Bronchitis with influenza Shortness of breath on exertion Vapes nicotine containing substance Leg cramps Hypotension Vaginal delivery SROM (spontaneous rupture of membranes) Anxiety Home Medications ?Medication ?Instructions ?Recorded ?Last Taken ?Type albuterol sulfate 90 mcg/actuation 1 - 2 puff inhalation Q4H PRN PRN 04/15/20 Unknown Rx aerosol inhaler Wheezing ##1 acetaminophen 325 mg tablet 650 mg PO ONCE PRN Pain 02/17/22 Unknown History (Tylenol) oxycodone 5 mg capsule 5 mg PO Q6H PRN pain 3 days #10 03/06/22 Unknown Rx caps hydrocodone-acetaminophen 5-325mg 1 tab PO Q4H PRN PRN Pain 2 days 10/11/22 Unknown Rx 5mg-325mg #5 TABLETS prednisone 20 mg tablet 60 mg (3 x 20 mg) PO DAILY #15 10/11/22 Unknown Rx TABLETS dicyclomine 10 mg capsule 20 mg (2 x 10 mg) PO TID PRN PRN 11/20/22 Unknown Rx abdominal cramping #20 CAPSULES ondansetron 4 mg disintegrating 4 mg PO Q8H PRN PRN Nausea #10 tabs 11/20/22 Unknown Rx tablet naproxen 500 mg tablet 500 mg PO BID #20 tabs 04/16/23 Unknown Rx ondansetron 4 mg disintegrating 4 mg PO Q8H PRN PRN Nausea #20 tabs 02/27/24 Unknown Rx tablet metoclopramide HCl 10 mg tablet 10 mg PO Q6H PRN nausea and 03/09/24 Unknown Rx (Reglan) vomiting #15 tabs Allergy/AdvReac Type Severity Reaction Status Date / Time No Known Allergies Allergy Verified 03/15/24 18:26 Family History Mother Heart disease Cancer skin Grandmother Hypertension Seizures Thyroid disorder Cancer skin Grandfather Cancer skin Surgical History History of umbilical hernia repair [place] teeth removed History of tonsillectomy Social History Smoking Status: Former smoker alcohol intake: never substance use type: does not use ROS <DIPESH Sky - Last Filed: 03/15/24 20:58> ROS ED ROS Narrative Constitutional: Negative for fever, chills, weight loss, weakness Eyes: Negative for vision loss, vision change, double vision ENT: Negative for any sore throat, ear pain, congestion Cardiovascular: Negative for any chest pain, tightness, palpitations Respiratory: Negative for any cough, sputum production, hemoptysis, dyspnea, dyspnea on exertion, orthopnea Gastrointestinal: Negative for any vomiting, diarrhea, constipation, blood in stool, blood in vomit. Positive abdominal cramping : Negative for any urinary frequency, dysuria, retention, blood in urine Muscle skeletal: Negative for any neck pain, back pain Neurological: Negative for any headache, syncope, dizziness Skin: Negative for any rashes, itching, abrasions, lacerations Psychiatric: Negative for any depression, anxiety, stress, suicidal ideation, homicidal ideation Hematologic: Negative for any excessive bruising, easy bleeding EXAM <DIPESH Sky - Last Filed: 03/15/24 20:58> Physical Exam Narrative Exam Narrative: Vital signs reviewed. HEET: Head normocephalic atraumatic, TMs clear bilaterally. Posterior pharynx is clear, moist mucous membranes. Nares clear bilaterally. Neck: Supple with no lymphadenopathy or tenderness. No signs of meningismus. Cardiac: Regular rate and rhythm no murmurs gallops or rubs, equal peripheral pulses bilaterally. Respiratory: Lungs clear to auscultation bilaterally. No chest tenderness. Abdomen: Soft, nontender, nondistended. No abdominal bruit or pulsatile masses. No hepatosplenomegaly Extremities: No peripheral edema, no signs of gross trauma or deformity. Active full range of motion of all extremities. Neuro: Cranial nerves II through XII intact, no focal neurological deficits. Skin: Clean dry and intact with no rash, purpura, petechiae, vesicles or pustules. Backs/flank: No CVA tenderness, no midline spinal tenderness, no deformity. Psych: Normal mood and affect. No SI, HI or acute psychosis. Const Vital Signs: 03/15/24 15:48 03/15/24 17:48 03/15/24 19:00 Temperature 96.9 F L Temperature Source Temporal Pulse Rate 114 H 89 79 Respiratory Rate 18 16 16 Blood Pressure 143/102 H 113/68 126/83 H Blood Pressure Mean 115 83 97 Pulse Ox 100 98 98 Oxygen Delivery Method Room Air Room Air Room Air <Dr. Dharmesh Llamas MD - Last Filed: 03/15/24 16:22> Physical Exam Const Vital Signs: 03/15/24 15:48 03/15/24 17:48 03/15/24 19:00 Temperature 96.9 F L Temperature Source Temporal Pulse Rate 114 H 89 79 Respiratory Rate 18 16 16 Blood Pressure 143/102 H 113/68 126/83 H Blood Pressure Mean 115 83 97 Pulse Ox 100 98 98 Oxygen Delivery Method Room Air Room Air Room Air [facility] <DIPESH Sky - Last Filed: 03/15/24 20:58> [facility] Lab Data Labs: Laboratory Results - last 24 hr 03/15/24 03/15/24 16:10 17:02 WBC 7.6 RBC 4.25 Hgb 13.4 Hct 40.4 MCV 95.1 MCH 31.5 MCHC 33.2 RDW Std Deviation 46.4 H RDW Coeff of Tony 13.2 Plt Count 163 MPV 11.0 Immature Gran % (Auto) 0.300 Neut % (Auto) 69.3 Lymph % (Auto) 20.1 [place] % (Auto) 7.9 Eos % (Auto) 2.0 Baso % (Auto) 0.4 Absolute Neuts (auto) 5.3 Absolute Lymphs (auto) 1.53 Nucleated RBC % 0 Sodium 136 Potassium 3.7 Chloride 106 Carbon Dioxide 25.0 Anion Gap 5 BUN 7 Creatinine 0.56 Estim Creat Clear Calc 128.14 Est GFR (MDRD) Af Amer 170 Est GFR (MDRD) Non-Af 141 BUN/Creatinine Ratio 12.5 Glucose 68 L Calcium 8.8 HCG, Quant 780459 H Urine Color Yellow Urine Clarity Sl. Cloudy Urine pH 6.[address] [place] 1.025 Urine Protein 15 H Urine Glucose (UA) Normal Urine Ketones Negative Urine Occult Blood Negative Urine Nitrite Negative Urine Bilirubin Negative Urine Urobilinogen 4 H Ur Leukocyte Esterase Negative Urine RBC 0 SEEN Urine WBC 0-5 SEEN Ur Squamous Epith Cells 5-10 SEEN Urine Bacteria RARE Urine Mucus 0 SEEN Radiography Diagnostic Testing: Clinical Impression(s) from Imaging Studies Obstetrics Ultrasound 03/15/24 16:01 IMPRESSION: Intrauterine gestation which is small for maternal dates without cardiac activity likely representing spontaneous demise in utero association with subchorionic bleed. Clinical correlation recommended and follow-up studies if indicated Electronically Signed: Veto Padron MD at 20:50 EDT Reading Location ID and State: [facility] / [place] Tel , Service support , Treatment and Re-Evaluation :: Differential diagnosis includes however is not limited to: Normal uterine , miscarriage, uterine cramping, UTI Patient appears to be in no obvious respiratory distress vital signs are stable, patient is nontoxic-appearing. Presenting to the emergency department complaints of lower abdominal cramping, concerned that there continues to be no heartbeat of this intrauterine . Will do bedside ultrasound. Bedside ultrasound did not see intrauterine , this time, patient received basic laboratory values including hCG quantitative as well as a transvaginal ultrasound. Patient received IV fluids, Zofran. CBC was unremarkable, chemistries were unremarkable, glucose 68, patient's hCG quantitative was 115,724. This is slightly elevated at the 21st. Transvaginal ultrasound ordered. Patient's ultrasound shows an intrauterine gestation which is small for paternal dates without cardiac activity likely representing spontaneous demise in the utero association with subchorionic bleed. I spoke with the patient, she remained stable. She needs to follow-up with her SLASHER MACHINE OPERATOR which she does have an appointment in 3 days. She was given strict return precaution. All questions were answered, patient stable for discharge. <Dr. Dharmesh Llamas MD - Last Filed: 03/15/24 16:22> [facility] Narrative Medical decision making narrative: I have personally performed a face to face assessment of the patient and have reviewed the DAO Note. I performed a substantive portion of the visit including all aspects of the following. My garcia findings include: History is as above, somewhere in the 6-8-week range by dates , she is having pain a week or 2 ago, she states initially she had an ultrasound at about 5 weeks showing a heartbeat but then the ultrasound a week or so ago showed no heartbeat, now she started having pain again yesterday and today, sometimes gets severe and makes her feel little lightheaded, but it is the same suprapubic pain she was having before. No syncope no fevers or chills no bleeding or discharge. Exam is well-appearing in no distress. Abdomen a little protuberant. No tenderness. No respiratory distress. Is a little anxious and worried. Medical Decison Making bedside ultrasound performed by myself shows a double decidual sign with a large appearing to be empty space with fluid within the uterus. I see no fetus. Her uterus is tilted to her left. Her bladder is mostly full. There is no tenderness. Will obtain repeat official ultrasound and quantitative hCG to evaluate for heterotopic, intrauterine demise, versus live intrauterine that I am unable to find. Other additions or changes: [None] Lab Data Labs: Laboratory Results - last 24 hr 03/15/24 03/15/24 16:10 17:02 WBC 7.6 RBC 4.25 Hgb 13.4 Hct 40.4 MCV 95.1 MCH 31.5 MCHC 33.2 RDW Std Deviation 46.4 H RDW Coeff of Tony 13.2 Plt Count 163 MPV 11.0 Immature Gran % (Auto) 0.300 Neut % (Auto) 69.3 Lymph % (Auto) 20.1 [place] % (Auto) 7.9 Eos % (Auto) 2.0 Baso % (Auto) 0.4 Absolute Neuts (auto) 5.3 Absolute Lymphs (auto) 1.53 Nucleated RBC % 0 Sodium 136 Potassium 3.7 Chloride 106 Carbon Dioxide 25.0 Anion Gap 5 BUN 7 Creatinine 0.56 Estim Creat Clear Calc 128.14 Est GFR (MDRD) Af Amer 170 Est GFR (MDRD) Non-Af 141 BUN/Creatinine Ratio 12.5 Glucose 68 L Calcium 8.8 HCG, Quant 286404 H Urine Color Yellow Urine Clarity Sl. Cloudy Urine pH 6.[address] [place] 1.025 Urine Protein 15 H Urine Glucose (UA) Normal Urine Ketones Negative Urine Occult Blood Negative Urine Nitrite Negative Urine Bilirubin Negative Urine Urobilinogen 4 H Ur Leukocyte Esterase Negative Urine RBC 0 SEEN Urine WBC 0-5 SEEN Ur Squamous Epith Cells 5-10 SEEN Urine Bacteria RARE Urine Mucus 0 SEEN Radiography Diagnostic Testing: Clinical Impression(s) from Imaging Studies Obstetrics Ultrasound 03/15/24 16:01 IMPRESSION: Intrauterine gestation which is small for maternal dates without cardiac activity likely representing spontaneous demise in utero association with subchorionic bleed. Clinical correlation recommended and follow-up studies if indicated Electronically Signed: Veto Padron MD at 20:50 EDT Reading Location ID and State: [facility] / [place] Tel , Service support , Discharge Plan Triage Chief Complaint: Dizziness ED Midlevel Provider: Hugo Olmos ED Provider: Dharmesh Llamas Dx/Rx/DC Orders Clinical Impression: Abdominal pain, Dizziness, demise due to miscarriage Instructions: Dizziness Fainting Causes, ED Dizziness, Uncertain Cause, ED Miscarriage Spontaneous Prescriptions: No Action acetaminophen [Tylenol] 325 mg tablet 650 mg PO ONCE PRN (Reason: Pain) albuterol sulfate 1 INHALER inhaler 1 - 2 puff inhalation Q4H PRN PRN (Reason: Wheezing) Qty: 1 0RF oxycodone 5 mg capsule 5 mg PO Q6H PRN (Reason: pain) 3 Days Qty: 10 0RF hydrocodone-acetaminophen [hydrocodone-acetaminophen] 5-325 mg tablet 1 tab PO Q4H PRN PRN (Reason: Pain) 2 Days Qty: 5 0RF prednisone 20 mg tablet 60 mg PO DAILY Qty: 15 0RF ondansetron 4 mg tablet,disintegrating 4 mg PO Q8H PRN PRN (Reason: Nausea) Qty: 10 0RF dicyclomine 10 mg capsule 20 mg PO TID PRN PRN (Reason: abdominal cramping) Qty: 20 0RF naproxen 500 mg tablet 500 mg PO BID Qty: 20 0RF ondansetron 4 mg tablet,disintegrating 4 mg PO Q8H PRN PRN (Reason: Nausea) Qty: 20 0RF metoclopramide HCl [Reglan] 10 mg tablet 10 mg PO Q6H PRN (Reason: nausea and vomiting) Qty: 15 0RF Stand Alone Forms: Work / School Excuse Primary Care Provider: Michelle Bashir NP Referrals: Michelle Bashir NP, [employer] [Primary Care Provider] - Activity Restrictions/Additional Instructions: Please follow-up with your SLASHER MACHINE OPERATOR. Ensure that you are drinking enough fluids. Print Language: Afghan Disposition Disposition: Home, Self Care
[2024-03-15] MEDS: 0.9% Normal Saline (1000mL) 1,000 ML 999 ML IV (16:07)
[2024-03-15] MEDS: Ondansetron 4 MG/2 ML Vial IV (16:07)
[2024-03-15 16:27] LABS: Absolute Lymphocyte Count 1.53 X10^3/uL (0.83-4.51); Absolute Neutrophil Count 5.3 X10^3/uL (2.0-7.7); Basophil# 0.03 X10^3/uL; Basophil% 0.4 % (0-1); Eosinophil# 0.15 X10^3/uL; Hematocrit 40.4 % (37-47); Hemoglobin 13.4 g/dL (12.0-15.0); Lymphocyte # 1.53 X10^3/ul (0.83-4.51); Lymphocyte % 20.1 % (19-41); Mean Corp Hgb Conc 33.2 g/dL (32-36); Mean Corpuscular Hgb 31.5 pg (27.0-32.0); Mean Corpuscular Volume 95.1 fL (81-99); Monocyte% 7.9 % (0-10); NRBC Flagged by Analyzer 0 % (0-5); Neutrophil # 5.29 X10^3/uL (2.7-7.7); Neutrophil % 69.3 % (47-70); Platelet Count 163 K/mm3 (150-450); RBC Distribution Width CV 13.2 % (11.6-14.6); RBC Distribution Width SD 46.4 fl (35.1-43.9); Red Blood Count 4.25 M/mm3 (4.2-5.4); White Blood Count 7.6 K/mm3 (4.4-11.0)
[2024-03-15 16:36] LABS: Anion Gap 5 (5-15); BUN 7 mg/dL (7-18); BUN/Creat Ratio 12.5 RATIO (10-20); Calcium,Total 8.8 mg/dL (8.5-10.1); Chloride 106 mmol/L (98-107); Creatinine, Serum 0.56 mg/dL (0.55-1.02); EST Glomerular Filtration Rate 141 mL/min (>60); Est Glom Filt Rate - Afr Amer 170 mL/min (>60); Estimated Creatinine Clearance 128.14 ml/min; Glucose 68 mg/dL (74-106); Potassium 3.7 mmol/L (3.5-5.1); Sodium Level 136 mmol/L (136-145)
[2024-03-15 16:59] LABS: hCG Titer Quant., Serum 115724 mIU/mL (1-3)
[2024-03-15 17:13] LABS: Mucous, Urine 0 SEEN /hpf (<or=2+); Red Blood Cells-Urine 0 SEEN /hpf (0-5)
[2024-03-15 17:15] LABS: Color, Urine Yellow (Yellow); Glucose, Dipstick Normal (Normal); Ketone-Dipstick Negative (Negative); Leukocyte Esterase-Dipstick Negative /ul (Negative); Nitrite-Dipstick Negative (Negative); Occult Blood-Urine Negative /ul (Negative); Protein-Dipstick 15 mg/dl (Negative); Specific Gravity, Urine 1.025 (1.002-1.030); Urine Bilirubin Dipstick Negative (Negative); Urine Clarity Sl. Cloudy (Clear); Urine Urobilinogen 4 mg/dl (Normal)
[2024-03-15 17:36] LABS: Bacteria RARE /hpf (None Seen); Squamous Epithelial Cells - UA 5-10 SEEN /hpf (5-10); White Blood Cells 0-5 SEEN /hpf (0-5)
[2024-03-15 17:48] VITALS: BP 113/68; PULSE 89; RESP 16; O2SAT 98
[2024-03-15 19:00] VITALS: BP 126/83; PULSE 79; RESP 16; O2SAT 98
[2024-03-15 20:56] VITALS: BP 127/82; PULSE 80; RESP 16; TEMP 36.7; O2SAT 99
== END 2024-03-15 21:02 | disposition home or self-care (01) ==
PROVIDERS: Nurse Practitioner; Emergency Provider Emergency Medicine; PCP Nurse Practitioner Family; Visit Provider Emergency Medicine
DX: O02.1 Missed abortion (principal); O26.891 Other specified pregnancy related conditions, first trimester; Z87.891 Personal history of nicotine dependence; R10.9 Unspecified abdominal pain; R42 Dizziness and giddiness; O03.9 Complete or unspecified spontaneous abortion without complication; Z3A.08 8 weeks gestation of pregnancy
CPT/HCPCS: 76817; 80048; 81001; 84702; 85025; 96361; 96374; 99283; J7030; A4216; J2405

== ENCOUNTER 2024-03-20 08:35 | Day surgery (SDC) | payer OTHER, MEDICAID, SELFPAY ==
--- NOTE | 2024-03-19 12:36 | PCM.HP.BLA ---
History and Physical Date of Admission: 03/20/24 HPI: The patient is a 23 year old female presenting for pre-operative visit. She is scheduled for Suction D&C, for missed on 03/20/24. Procedure discussed along with risks, benefits and complications. Other alternatives discussed for management. Consent form signed? Yes. PAST MEDICAL HISTORY PAST MEDICAL HISTORY Diagnosis Date ? Allergic rhinitis ? anxiety ? Closed head injury 10/06/2022 ? Cyst of left ovary 03/15/2024 ? Low-lying placenta 11/18/2020 01/31/21- No longer low lying via ultrasound. Anahy Weeks APRN.CNM 11/18/20:recheck placental location in 8-12 WEEKS. Kerri Godwin MD ? Menarche 09/2011 ? Miscarriage at 8 to 28 weeks gestation 03/15/2024 ? NEGATIVE HISTORY OF 04/29/2012 Normal Color Vision ? NEGATIVE MEDICAL HISTORY PAST SURGICAL HISTORY PAST SURGICAL HISTORY Procedure Laterality Date ? NEXPLANON INSERTION 05/31/2015 ? REPAIR EPIGASTRIC HERNIA,REDUC ? TONSILLECTOMY PRIMARY/SECONDARY <AGE 11 CURRENT MEDICATIONS Current Outpatient Medications Medication Sig Dispense Refill ? [id number]/om3/dha/epa ( GUMMY ORAL) Take by mouth once daily. Has iron but unsure if folic acid ? promethazine (PHENERGAN) 12.5 mg tablet Take 1 tablet by mouth every 6 hours as needed. 60 tablet 2 ? albuterol HFA (PROVENTIL HFA, VENTOLIN HFA) 90 mcg/actuation inhaler Inhale 2 Puffs as instructed every 4 hours as needed. 18 g 0 No current facility-administered medications for this visit. ALLERGIES: Seasonal Allergies PERSONAL HISTORY: SOCIAL HISTORY Social History Tobacco Use ? Smoking status: Former Packs/day: .5 Types: Cigarettes Quit date: 04/26/2020 Years since quittin.8 ? Smokeless tobacco: Never ? Tobacco comments: vape Vaping Use ? Vaping Use: Former ? Substances: Nicotine, Flavoring Substance Use Topics ? Alcohol use: No ? Drug use: Not Currently Types: Marijuana FAMILY HISTORY: FAMILY HISTORY FAMILY HISTORY Problem Relation Age of Onset ? Heart Mother ? other (bipolar) Father ? No Known Problems Sister ? No Known Problems Sister ? No Known Problems Brother ? No Known Problems Brother ? Heart Maternal Grandmother ? No Known Problems Maternal Grandfather ? other (bipolar) Paternal Grandmother ? other (bipolar) Paternal Grandfather ? other (Negative) Other ? Heart Brother 14 pericarditis REVIEW OF SYMPTOMS: GENERAL: denies fevers or chills ENDOCRINOLOGY: has not been on steroids Cardiology : denies palpitations or chest pain Respiratory: denies SOB or cough Hematology: denies history of prolonged bleeding or easy bruising or VTE Allergy: Denies history of personal or family history of allergy to anesthesia PHYSICAL EXAMINATION: VITALS: Blood pressure 102/68, height 160.7 cm (5' 3.25), weight 54 kg (119 lb), last menstrual period 12/24/2023. GENERAL: The patient is well nourished, well hydrated in no acute distress. , The patient is oriented to time, place, and person. NECK: Supple. No lynphadenopathy, normal thyroid, no thyromegaly. LUNGS: Clear to auscultation bilaterally. no wheezes, rhonchi or rales HEART: Regular rate and rhythm, Normal heart sounds, and No murmurs or gallops IMPRESSION: 9 week missed , CRL 5-6 week size PLAN: The risks/benefits/alternatives and personal involved for the planned suction D&C and possible IUD insertion for contraception were reviewed with the patient. Her questions were answered to her satisfaction and she desires to proceed. Consent was signed. I reviewed with her postop instructions and expectations. Does not desire genetic testing on POCs. Considering if she wants to have POCs released to her. Is aware Dr. Burgos or Snehal will be doing her surgery. I have reviewed and updated past medical and surgical history, medications and allergies Assessment & Plan Assessment/Plan (1) 9 weeks gestation of : (2) Missed ab:
[2024-03-20] VITALS (8 sets, daily range): BP systolic 92–114; BP diastolic 53–89; PULSE 58–90; RESP 16–18; TEMP 36.6–37.1; O2SAT 98–100; BMI 21.2
--- NOTE | 2024-03-20 08:41 | PRE.ANES_ITS ---
ASA Classification* ASA Classification ASA Classification: 2 Assessment & Plan Anesthesia* Anesthesia Assessment Anesthesia Assessment: Discussed sedation and/or anesthesia options, risks, benefits, and alternatives with patient/parents/legal guardian/POA. Questions invited. The patient/parents/legal guardian/POA seems to understand and agrees to proceed with anesthesia plan. Reviewed the physical assessment, medical history, allergy history and patient home medications list prior to surgery/procedure/anesthetic and documented any changes. Performed airway and anesthesia risk assessments. Anesthesia Type Anesthesia Type: MAC Anesthesia Focused Assessment* Airway Assessment Mouth opens: >3 cm Mallampati Score: II Focused Labs Anesthesia Preop lab: CBC WBC 7.6 K/mm3 (4.4-11.0) 03/15/24 16:10 RBC 4.25 M/mm3 (4.2-5.4) 03/15/24 16:10 Hgb 13.4 g/dL (12.0-15.0) 03/15/24 16:10 Hct 40.4 % (37-47) 03/15/24 16:10 Plt Count 163 K/mm3 (150-450) 03/15/24 16:10 CHEMISTRY Potassium 3.7 mmol/L (3.5-5.1) 03/15/24 16:10 Sodium 136 mmol/L (136-145) 03/15/24 16:10 BUN 7 mg/dL (7-18) 03/15/24 16:10 Creatinine 0.56 mg/dL (0.55-1.02) 03/15/24 16:10 Glucose 68 mg/dL (74-106) L 03/15/24 16:10 COAG PT 14.1 SECONDS (11.7-14.9) 03/06/22 12:00 HCG, Quant [id number] mIU/mL (1-3) H 03/15/24 16:10 Urine Test Negative Negative 03/06/22 11:25 Pre-Assessment Diagnosis/Proposed Procedure Planned Operative Procedure(s): SUCTION DILATION CURETTAGE Anesthesia History 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 When Was Last Pacemaker Check QUESTION #4 FULL TEXT: You/Your Family Experience fever (hyperthermia) with Anesthesia Last Oral Intake Last Oral intake: Last Oral Intake NPO since Meds taken in AM with sips of water? Meds patient instructed to take am of surgery PONV PONV - core drilling supervisor: PONV - core drilling supervisor Female Yes 03/19/24 11:43 HX of Motion Sickness No 03/19/24 11:43 HX of N/V After Surgery No 03/19/24 11:43 Non-Smoker Yes 03/19/24 11:43 Duration of Surgery greater No 03/19/24 11:43 than 60 minutes Number of Risk Factors 2 03/19/24 11:43 PONV Score Moderate Risk 03/19/24 11:43 Height & Weight Height & Weight: Anesthesia: Height & Weight Height 5 ft 3 in 03/19/24 12:37 Weight: 53.977 kg 03/19/24 12:37 Respiratory Assessment Respiratory Assessment - core drilling supervisor: Respiratory Tract Infection Hx - core drilling supervisor Hx Respiratory Tract Infection Yes: CONGESTION 03/19/24 11:43 STOP Sleep Apnea STOP Sleep Apnea - core drilling supervisor: STOP Sleep Apnea - core drilling supervisor Hx Hypertension No 03/19/24 11:43 Hx Sleep Apnea No 03/19/24 11:43 CPAP BIPAP Do you snore loudly (louder No 03/19/24 11:43 than talking or can be heard Do you often feel tired/ No 03/19/24 11:43 fatigued/ sleepy during daytime? Has anyone observed you stop No 03/19/24 11:43 breathing during sleep? STOP Results Negative 03/19/24 11:43 QUESTION #5 FULL TEXT : Do you snore loudly (louder than talking or can be heard through closed doors)? 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 Specify any problems Hx of Preganancy in last 3 Yes 03/19/24 11:43 Months Nurse Filling Out Transfusion [id number] 03/19/24 11:43 & Questions: Date: 03/19/24 03/19/24 11:43 Time: 11:45 03/19/24 11:43 Patient unable to answer at this time (ie. confused, unrespo /Reproduction History /Reproductive History - core drilling supervisor: /Reproductive Hx- core drilling supervisor Hx Now Gestational Age (in weeks): EDC: Hx Hx Para Hx Section SAB No 03/19/24 11:43 Active Medications Active Medications: Current Medications Generic Name Dose Route Start Last Admin Trade Name Freq PRN Reason Stop Dose Admin Lactated Ringer's 1,000 mls @ 15 mls/hr 03/20/24 08:45 IV .Q48H [facility] Medical History Heart palpitations Marijuana use Alcohol use Easy bruising Restless legs Back pain Injury of head and neck Syncope Loss of consciousness Heartburn Bronchitis with influenza Shortness of breath on exertion Vapes nicotine containing substance Leg cramps Hypotension Vaginal delivery SROM (spontaneous rupture of membranes) Anxiety Home Medications ?Medication ?Instructions ?Recorded ?Last Taken ?Type albuterol sulfate 90 mcg/actuation 1 - 2 puff inhalation Q4H PRN PRN 04/15/20 Unknown Rx aerosol inhaler Wheezing ##1 acetaminophen 325 mg tablet 650 mg PO ONCE PRN Pain 02/17/22 Unknown History (Tylenol) hydrocodone-acetaminophen 5-325mg 1 tab PO Q4H PRN PRN Pain 2 days 10/11/22 Unknown Rx 5mg-325mg #5 TABLETS dicyclomine 10 mg capsule 20 mg (2 x 10 mg) PO TID PRN PRN 11/20/22 Unknown Rx abdominal cramping #20 CAPSULES ondansetron 4 mg disintegrating 4 mg PO Q8H PRN PRN Nausea #10 tabs 11/20/22 Unknown Rx tablet metoclopramide HCl 10 mg tablet 10 mg PO Q6H PRN nausea and 03/09/24 Unknown Rx (Reglan) vomiting #15 tabs Allergy/AdvReac Type Severity Reaction Status Date / Time No Known Allergies Allergy Verified 03/19/24 11:40 Family History Mother Heart disease Cancer skin Grandmother Hypertension Seizures Thyroid disorder Cancer skin Grandfather Cancer skin Surgical History History of umbilical hernia repair [place] teeth removed History of tonsillectomy Social History Smoking Status: Former smoker alcohol intake: never substance use type: does not use Review of Systems (Anesthesia) ROS Narrative System reviewed and no additional complaints, except as documented.
[2024-03-20] MEDS: Lactated Ringers 1,000 ML 15 ML IV (09:09)
[2024-03-20] MEDS: Doxycycline 100 MG CAPSULE 200 MG PO (09:10)
--- NOTE | 2024-03-20 09:19 | PCM.PN.BLA ---
Progress Note Pt doing well and seen in pre op. Some lightheadedness. No vaginal bleeding. Assessment & Plan Assessment/Plan (1) Missed ab: PLAN: Patient seen in pre op and no changes noted to H&P. Patient desires to proceed with surgery as planned. Questions answered and discussed recovery per patient request. She desires to have IUD inserted at time of surgery. (2) 9 weeks gestation of :
[2024-03-20] MEDS: Lidocaine 1% /Epi 1:100 (20ml) 20 ML Vial (09:57)
--- NOTE | 2024-03-20 10:00 | POC_PTH ---
PATIENT: BOWEN JONES LOC: [facility] [place] U[place][id number] AGE/SX: 23 ROOM: RE03/20/[address]: Dr. Lawanda Brian DO : 2000 BED: DIS: 03/20/2024 SPEC #: [id number] RECD: 03/20/24 12:33 STATUS: LULU EDEN #: [id number] MONIKA: 03/20/24 10:[address]: Lawanda Brian DEPT: SURGICAL PATHOLOGY RECD BY: Luisa Bae ENTERED: 03/20/24 13:18 SP TYPE: PROD CONC OTHR DR: DIPESH Goel Tissues: Product of conception, NOS Procedures: Surgery Specimen Level IV HEADER OPERATION: D&C, suction PRE-OP DIAGNOSIS: Missed TISSUE SUBMITTED: Products of conception (patient coming back for remains) MICROSCOPIC DIAGNOSIS Endometrium, curettage: Chorionic villi, decidualized stroma and trophoblastic cells (products of conception). AM: 03/21/2024 MICROSCOPIC DESCRIPTION Slides are reviewed. GROSS DESCRIPTION Received in fixative is one container labeled with the patient's name and designated Products of conception. The specimen consists of multiple fragments of pink hemorrhagic soft tissue measuring in aggregate 6.5 x 6.0 x 1.0cm. tissue is not identified. Diamond Sizer tissue is submitted in two cassettes. MIREYA/ 03/20/2024 TC:5 CPT:77098
[2024-03-20 10:10] LABS: hCG Titer Quant., Serum 90692 mIU/mL (1-3)
[2024-03-20] MEDS: Levonorgestrel IUD (Liletta) 1 EACH INTRA-UTER (10:15)
--- NOTE | 2024-03-20 10:23 | PCM.DC ---
Discharge Instructions Diet Discharge Diet: No restrictions Activity Discharge Activity: May Drive (once you are more than 24 hours out from surgery) and May Shower (once you are more than 24 hours out from surgery) May resume sexual activity in: 2 weeks (nothing in the vagina and no soaking in water) Ice area for (Minutes): 15 Weight Bearing Status: Weight bearing as tolerated Lifting Restrictions: none Dressing / Incision Call your doctor if you observe: Fever of 101 or Higher, Coldness, Increased Pain, Numbness or Tingling, Change in Color, Inability to urinate, Inability to have a bowel movement, Using more than 1 pad per hour, Shortness of breath, Dizziness, Fainting spells, Swelling in the ankles, Chest pain, Increased palpitations (irregular heartbeat), Calf discomfort and Uncontrolled pain Cleanse incision/area with: Soap & Water Follow Up Care Please Follow Up With: Lawanda Brian DO When: 1-2 weeks for follow up Test Results: Test results from this visit will be discussed in further detail at your follow-up appointment, if applicable. Discharge Plan Admission Primary Reason for Your Visit: surgery Attending Provider: Lawanda Brian Primary Care Provider: Michelle Bashir NP Instructions Print Language: Kiswahili Discharge Orders/Prescriptions Prescriptions: Continued acetaminophen [Tylenol] 325 mg tablet 650 mg PO ONCE PRN (Reason: Pain) albuterol sulfate 1 INHALER inhaler 1 - 2 puff inhalation Q4H PRN PRN (Reason: Wheezing) Qty: 1 0RF hydrocodone-acetaminophen 5-325 mg tablet 1 tab PO Q4H PRN PRN (Reason: Pain) 2 Days Qty: 5 0RF ondansetron 4 mg tablet,disintegrating 4 mg PO Q8H PRN PRN (Reason: Nausea) Qty: 10 0RF dicyclomine 10 mg capsule 20 mg PO TID PRN PRN (Reason: abdominal cramping) Qty: 20 0RF metoclopramide HCl [Reglan] 10 mg tablet 10 mg PO Q6H PRN (Reason: nausea and vomiting) Qty: 15 0RF Referrals / Follow Up: Michelle Bashir DATA PROCESSING CONTROL CLERK, DATA PROCESSING CONTROL CLERK-C [Primary Care Provider] - Disposition Disposition (needs filled in before D/C Order can be placed): Home, Self Care
--- NOTE | 2024-03-20 10:24 | PCM.OPRPT ---
Problems Associated Problem List Diagnoses (1) Missed ab: (2) 9 weeks gestation of : Report of Operation Date of Procedure: 03/20/24 Pre-Operative Diagnosis: MAB measuring 6 weeks on ultrasound, request for IUD Post-Operative Diagnosis: As above Surgery/Procedure Performed:: Suction D&C under ultrasound guidance Liletta IUD insertion Description of Surgical Findings:: Enlarged 8-9 week uterus Surgeon: Lawanda Brian training generalist: None Type of Anesthesia: MAC Special Medications: None Specimen's removed: Products of conception Drains: None Estimated Blood Loss (mL): < 20 Fluids Replaced: See anesthesia record Description of Procedure: The patient was taken to the operating room MAC anesthesia was found be adequate. She was prepped and draped in the dorsal lithotomy position using yellowfin stirrups. Weighted speculum was placed in the vagina to expose the cervix. The anterior lip of the cervix was grasped with a single-tooth tenaculum. 1% lidocaine with epinephrine was injected circumferentially around the cervix. The cervix was serially dilated. A size 9 and a size 6 mm suction curettage were both used to remove products of conception under ultrasound guidance. Once no further products of conception were noted, a sharp curettage was performed along all 4 uterine thorne for good uterine cry. An ultrasound was performed showing no remaining products of conception. The uterus sounded to 11 cm. The Liletta IUD was inserted in usual sterile fashion at the fundus of the uterus, the strings were trimmed to 2 cm in length. All instruments were removed from the vagina. Bleeding was hemostatic. A vaginal sweep was performed. Sharp counts were correct. The patient was taken to the recovery in stable condition. Grafts/Implants Used: Liletta IUD Procedure Start Time: 09:57 Procedure Stop Time: 10:20 Complications None Admit VTE Documentation VTE Present on Admission: No VTE Mechan Device Prophylaxis: SCD's
--- NOTE | 2024-03-20 10:28 | PCM.POST.ANE ---
Anesthesia: Postop Eval I Current Vital Signs Temperature: 97.8 F Pulse Rate: 79 Blood Pressure: 99/61 Respiratory Rate: 16 Pulse Ox: 100 Oxygen Delivery Method: Room Air Assessment Airway patent: Yes Spontaneous unlabored respirations: Yes Mental status: Awake and Calm nausea: No Vomiting: No Anesthesia Complication: No Fluid Hydration Crystalloid volume administer (ml): 700 Total IV fluid infused: 700 Progress Note Anesthesia document: Postop Eval 1 completed: Yes
--- NOTE | 2024-03-20 10:38 | POSTOPAN2_ITS ---
Anesthesia Postop Eval I Sum Postop Eval Completion status Anesthesia document: Postop Eval 1 completed: Yes Anesthesia Postop Eval I Summary Anesthesia Postop Eval I Summary: Anesthesia Postop Eval I: Assessment Summary Airway patent Yes 03/20/24 10:33 [email or web address] Spontaneous unlabored Yes 03/20/24 10:33 [email or web address] respirations Mental status Awake,Calm 03/20/24 10:33 [email or web address] nausea No 03/20/24 10:33 [email or web address] [email or web address] Vomiting No 03/20/24 10:33 [email or web address] Anesthesia Postop Eval I: Fluid Summary Crystalloid volume administer 700 03/20/24 10:33 [email or web address] (ml) Colloids volume administered ( ml) Blood Product volume administered (ml) Total IV fluid infused 700 03/20/24 10:33 [email or web address] Anesthesia Postop Eval I: Summary Notes Anesthesia Complication No 03/20/24 10:33 [email or web address] Anesthesia Complication Comment: Post-operative progress note Anesthesia: Postop Eval II Evaluation Mental status: Awake Pain Level: 0 nausea: No Vomiting: No
--- NOTE | 2024-03-20 10:38 | PCM.POSTANE2 ---
Anesthesia Postop Eval I Sum Postop Eval Completion status Anesthesia document: Postop Eval 1 completed: Yes Anesthesia Postop Eval I Summary Anesthesia Postop Eval I Summary: Anesthesia Postop Eval I: Assessment Summary Airway patent Yes 03/20/24 10:33 YARN WEIGHT [email or web address] [email or web address] Spontaneous unlabored Yes 03/20/24 10:33 YARN WEIGHT AND [email or web address] [email or web address] respirations Mental status Awake,Calm 03/20/24 10:33 YARN WEIGHT AND [email or web address] [email or web address] nausea No 03/20/24 10:33 YARN WEIGHT AND STRENGTH [email or web address].[email or web address] Vomiting No 03/20/24 10:33 YARN WEIGHT AND STRENGTH [email or web address].[email or web address] Anesthesia Postop Eval I: Fluid Summary Crystalloid volume administer 700 03/20/24 10:33 YARN WEIGHT AND STRENGTH [email or web address] (ml) Colloids volume administered ( ml) Blood Product volume administered (ml) Total IV fluid infused 700 03/20/24 10:33 YARN WEIGHT AND STRENGTH [email or web address].[email or web address] Anesthesia Postop Eval I: Summary Notes Anesthesia Complication No 03/20/24 10:33 YARN WEIGHT AND [email or web address] [email or web address] Anesthesia Complication Comment: Post-operative progress note Anesthesia: Postop Eval II Evaluation Mental status: Awake Pain Level: 0 nausea: No Vomiting: No
[2024-03-20] MEDS: Acetaminophen 325 MG Tablet 650 MG PO (11:10)
== END 2024-03-20 12:30 | disposition home or self-care (01) ==
LOC: SDC 08:39 → AC 08:40
PROVIDERS: PCP Nurse Practitioner Family; Referring Provider Obstetrics & Gynecology; Visit Provider Obstetrics & Gynecology
PROC: (CPT 59820; principal; 2024-03-20 09:45)
DX: O02.1 Missed abortion (principal); Z87.891 Personal history of nicotine dependence; Z79.51 Long term (current) use of inhaled steroids
CPT/HCPCS: 59820; 01965; 84702; 86850; 86900; 86901; 88305; J7120; J2405

== ENCOUNTER 2024-05-06 11:19 | Emergency (ER) | payer OTHER, MEDICAID, SELFPAY ==
[2024-05-06 11:20] VITALS: BP 142/92; PULSE 94; RESP 16; TEMP 36.6; O2SAT 100; BMI 21.9
--- NOTE | 2024-05-06 11:54 | CT_ITS ---
STUDY: CT ABDOMEN AND PELVIS WITH CONTRAST - URINARY TRACT REASON FOR EXAM: Female, 23 years old. Umbilical hernia pain RADIATION DOSAGE (If Supplied By Facility): CTDIvol = ( 10.69 ) mGy, DLP = ( 393.76 ) mGycm TECHNIQUE: IV 100mL Isovue-370 was administered. Transaxial images were obtained from the dome of the diaphragm to the symphysis pubis subsequent to intravenous contrast administration. Multiplanar coronal and sagittal images were reformatted. The protocol utilizes one or more of the following dose reduction techniques: automated exposure control, adjustment of mA and/or kV according to patient size,and/or use of iterative reconstruction technique. COMPARISON: June 13, 2017 FINDINGS: The visualized lung bases are unremarkable. The visualized portions of the heart are within normal limits. There is a stable low-attenuation focus within the left hepatic lobe adjacent to the falciform ligament system of focal fat Normal gallbladder and extrahepatic biliary system. There appears to be a mixing artifact within the spleen. Normal pancreas. Normal bilateral adrenal glands. Normal visualized stomach. Normal small intestine. Normal colon. The appendix is visualized and appears normal. Normal abdominal aorta. No retroperitoneal adenopathy. Normal right kidney. Normal left kidney. Normal urinary bladder. There is an intrauterine device in place in a grossly satisfactory position. There is a small supraumbilical fat-containing hernia with a neck measuring 3.7 mm. There is mild stranding within the neck. Normal osseous structures. CT/Abdomen/Pelvis W IV Cont ONLY IMPRESSION: Fat-containing supraumbilical hernia with findings which may reflect associated infarcted omental fat. Electronically Signed: Batsheva Zee MD at 13:25 EDT ,
--- NOTE | 2024-05-06 11:54 | EX.ED.DYSGE1 ---
HPI History of Present Illness Chief Complaint: Abd Pain Narrative Narrative: Chief complaint and HPI: Umbilical hernia pain. Patient is a 23-year-old female who presents for worsening umbilical hernia pain. Patient states that she has had an umbilical hernia for years. It was repaired in the past by general surgery. She states it reoccurred shortly after and has been present ever since. No mesh was used. 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 She has been picking them up often and since then has had increased pain. She endorses some nausea but no vomiting. Denies any fever, chills, chest pain, shortness of breath, diarrhea, constipation, dysuria. Patient has taken Tylenol with little relief. She states the pain is not improving which is why she presents here today. Patient last ate at 8 AM. No blood thinners. Review of systems: See HPI Medications: As listed on the chart Allergies: As listed on the chart PFSH: Per chart Vital signs: As listed on the chart. Reviewed. Physical exam: Gen: A&O x3, NAD Head: Normocephalic, atraumatic Eyes: No sclera icterus, conjunctiva clear ENT: Moist mucous membranes Neck: Trachea midline, No JVD CV: RRR, no murmurs, no peripheral edema Resp: Lungs CTA BL, no w/r/c GI: Abd soft, non-distended, tender to palpation of the umbilical hernia-unable to feel fascial defect to reduce hernia-no color changes or erythema, no rebound or rigidity Musc: Full ROM, no deformity Skin: Warm, dry Neuro: Alert, oriented, grossly intact, sensation intact Psych: Cooperative, appropriate mood and affect [facility] Medical History (Updated 05/06/24 @ 14:[address] Kenney Durand, DO) Heart palpitations Marijuana use Alcohol use Easy bruising Restless legs Back pain Injury of head and neck Syncope Loss of consciousness Heartburn Bronchitis with influenza Shortness of breath on exertion Vapes nicotine containing substance Leg cramps Hypotension Vaginal delivery SROM (spontaneous rupture of membranes) Anxiety (05/06/24) Home Medications ?Medication ?Instructions ?Recorded ?Last Taken ?Type albuterol sulfate 90 mcg/actuation 1 - 2 puff inhalation Q4H PRN PRN 04/15/20 Unknown Rx aerosol inhaler Wheezing ##1 acetaminophen 325 mg tablet 650 mg PO ONCE PRN Pain 02/17/22 Unknown History (Tylenol) hydrocodone-acetaminophen 5-325mg 1 tab PO Q4H PRN PRN Pain 2 days 10/11/22 Unknown Rx 5mg-325mg #5 TABLETS dicyclomine 10 mg capsule 20 mg (2 x 10 mg) PO TID PRN PRN 11/20/22 Unknown Rx abdominal cramping #20 CAPSULES ondansetron 4 mg disintegrating 4 mg PO Q8H PRN PRN Nausea #10 tabs 11/20/22 Unknown Rx tablet metoclopramide HCl 10 mg tablet 10 mg PO Q6H PRN nausea and 03/09/24 Unknown Rx (Reglan) vomiting #15 tabs oxycodone-acetaminophen 5 mg-325 1 tab PO Q8H PRN pain 3 days #10 05/06/24 Unknown Rx mg tablet (Percocet) tabs Allergy/AdvReac Type Severity Reaction Status Date / Time No Known Allergies Allergy Verified 05/06/24 11:21 Family History Mother Heart disease Cancer skin Grandmother Hypertension Seizures Thyroid disorder Cancer skin Grandfather Cancer skin Surgical History History of umbilical hernia repair [place] teeth removed History of tonsillectomy Social History Smoking Status: Former smoker alcohol intake: never substance use type: does not use EXAM Physical Exam Const Vital Signs: 05/06/24 11:20 05/06/24 13:20 05/06/24 15:00 Temperature 98 F 98.1 F Temperature Source Temporal Pulse Rate 94 63 69 Respiratory Rate 16 14 16 Blood Pressure 142/92 H 118/81 H 112/64 Blood Pressure Mean 108 93 80 Pulse Ox 100 98 98 Oxygen Delivery Method Room Air Room Air MDM MDM MDM Narrative Medical decision making narrative: 23-year-old female presents for worsening umbilical hernia pain. See physical exam findings. I am unable to reduce her hernia. However she states that she always has a hernia bump present therefore I do not know if this has ever been reducible. She is tender in this area but no overlying skin changes. Differential diagnosis includes but is not limited to symptomatic hernia incarcerated hernia, strangulated hernia. NS bolus, Zofran, morphine ordered for pain. CT abdomen/pelvis ordered with basic labs. On chart review, patient did have her hernia repaired in March [address] Qureshi. Vitals are stable. CBC unremarkable without anemia or leukocytosis. BMP unremarkable. Lactic acid unremarkable. CT abdomen pelvis shows a fat-containing supraumbilical hernia with findings which may reflect associated infarcted omental fat. On reexamination, patient states her pain is improved. Patient was updated of all her results and the findings of possible incarceration. Patient states she would rather discharge home and follow-up outpatient if this is an option. She states she is a single mother and needs to take care of her kids. General surgery was consulted and patient was discussed. General surgeon was made aware of patient's preference to discharge home. Recommendations from surgery are for discharge home and follow-up in Dr. Hutchison office for elective repair. Patient is to call the office for a follow-up appointment to be seen quickly. Patient was updated on the new recommendations and confirmed understanding. She was educated that if symptoms worsen or change she needs to return back to the ED such as reoccurrence/worsening of pain, fever, nausea, vomiting, constipation or diarrhea. Patient was given a short prescription for Percocet as needed for pain. She was educated not to drive on this. She confirmed understanding. Impression: 1. Fat-containing umbilical hernia 2. Abdominal pain Lab Data Labs: Laboratory Results - last 24 hr 05/06/24 12:10 WBC 7.4 RBC 4.37 Hgb 12.8 Hct 40.5 MCV 92.7 MCH 29.3 MCHC 31.6 L RDW Std Deviation 42.1 RDW Coeff of Tony 12.3 Plt Count 212 MPV 11.6 Immature Gran % (Auto) 0.300 Neut % (Auto) 64.4 Lymph % (Auto) 26.8 [place] % (Auto) 6.9 Eos % (Auto) 1.1 Baso % (Auto) 0.5 Absolute Neuts (auto) 4.8 Absolute Lymphs (auto) 1.98 Nucleated RBC % 0 Sodium 139 Potassium 3.8 Chloride 106 Carbon Dioxide 26.0 Anion Gap 7 BUN 9 Creatinine 0.74 Estim Creat Clear Calc 96.97 Est GFR (MDRD) Af Amer 123 Est GFR (MDRD) Non-Af 101 BUN/Creatinine Ratio 12.1 Glucose 86 Lactic Acid 1.2 Calcium 9.3 Radiography Diagnostic Testing: Clinical Impression(s) from Imaging Studies Abdomen/Pelvis CT 05/06/24 11:54 IMPRESSION: Fat-containing supraumbilical hernia with findings which may reflect associated infarcted omental fat. Electronically Signed: Batsheva Zee MD at 13:25 EDT , Discharge Plan Triage Chief Complaint: Abd Pain ED Provider: Kenney Durand Dx/Rx/DC Orders Clinical Impression: Irreducible umbilical hernia Instructions: ED Hernia (Adult) Prescriptions: New oxycodone-acetaminophen [Percocet] 5-325 mg tablet 1 tab PO Q8H PRN (Reason: pain) 3 Days Qty: 10 0RF No Action acetaminophen [Tylenol] 325 mg tablet 650 mg PO ONCE PRN (Reason: Pain) albuterol sulfate 1 INHALER inhaler 1 - 2 puff inhalation Q4H PRN PRN (Reason: Wheezing) Qty: 1 0RF hydrocodone-acetaminophen 5-325 mg tablet 1 tab PO Q4H PRN PRN (Reason: Pain) 2 Days Qty: 5 0RF ondansetron 4 mg tablet,disintegrating 4 mg PO Q8H PRN PRN (Reason: Nausea) Qty: 10 0RF dicyclomine 10 mg capsule 20 mg PO TID PRN PRN (Reason: abdominal cramping) Qty: 20 0RF metoclopramide HCl [Reglan] 10 mg tablet 10 mg PO Q6H PRN (Reason: nausea and vomiting) Qty: 15 0RF Stand Alone Forms: ED Work / School Excuse Primary Care Provider: Michelle Bashir NP Referrals: Amador Hutchison MD [Med Staff - Active Staff] - 1 Day for another exam Michelle Bashir NP, AGENCY APPOINTMENTS SUPERVISOR-C [Primary Care Provider] - 3-5 Days Activity Restrictions/Additional Instructions: Call the general surgery office as soon as you leave the ED for follow-up. Return back to the ED if symptoms worsen or change. Do not take Tylenol while taking Percocet. Print Language: Korean Disposition Disposition: Home, Self Care Discharge Date/Time: 05/06/24 15:07
[2024-05-06] MEDS: 0.9% Normal Saline (1000mL) 1,000 ML 999 ML IV (12:18)
[2024-05-06] MEDS: Ondansetron 4 MG/2 ML Vial IV (12:18)
[2024-05-06] MEDS: Morphine 4 MG/ML Syringe IV (12:18)
[2024-05-06 12:36] LABS: Absolute Lymphocyte Count 1.98 X10^3/uL (0.83-4.51); Absolute Neutrophil Count 4.8 X10^3/uL (2.0-7.7); Basophil# 0.04 X10^3/uL; Basophil% 0.5 % (0-1); Eosinophil# 0.08 X10^3/uL; Eosinophils% 1.1 % (0-5); Hematocrit 40.5 % (37-47); Hemoglobin 12.8 g/dL (12.0-15.0); Lymphocyte # 1.98 X10^3/ul (0.83-4.51); Lymphocyte % 26.8 % (19-41); Mean Corp Hgb Conc 31.6 g/dL (32-36); Mean Corpuscular Hgb 29.3 pg (27.0-32.0); Mean Corpuscular Volume 92.7 fL (81-99); Mean Platelet Vol. 11.6 fl (6.2-12.0); Monocyte# 0.51 X10^3/uL; Monocyte% 6.9 % (0-10); NRBC Flagged by Analyzer 0 % (0-5); Neutrophil # 4.76 X10^3/uL (2.7-7.7); Neutrophil % 64.4 % (47-70); Platelet Count 212 K/mm3 (150-450); RBC Distribution Width CV 12.3 % (11.6-14.6); RBC Distribution Width SD 42.1 fl (35.1-43.9); Red Blood Count 4.37 M/mm3 (4.2-5.4); White Blood Count 7.4 K/mm3 (4.4-11.0)
[2024-05-06 12:40] LABS: Anion Gap 7 (5-15); BUN 9 mg/dL (7-18); BUN/Creat Ratio 12.1 RATIO (10-20); Calcium,Total 9.3 mg/dL (8.5-10.1); Chloride 106 mmol/L (98-107); Creatinine, Serum 0.74 mg/dL (0.55-1.02); EST Glomerular Filtration Rate 101 mL/min (>60); Est Glom Filt Rate - Afr Amer 123 mL/min (>60); Estimated Creatinine Clearance 96.97 ml/min; Glucose 86 mg/dL (74-106); Potassium 3.8 mmol/L (3.5-5.1); Sodium Level 139 mmol/L (136-145)
[2024-05-06 12:52] LABS: Lactic Acid 1.2 mmol/L (0.4-1.9)
[2024-05-06 13:20] VITALS: BP 118/81; PULSE 63; RESP 14; O2SAT 98
[2024-05-06 15:00] VITALS: BP 112/64; PULSE 69; RESP 16; TEMP 36.7; O2SAT 98
== END 2024-05-06 15:07 | disposition home or self-care (01) ==
PROVIDERS: Emergency Provider Surgery; PCP Nurse Practitioner Family; Visit Provider Surgery
DX: K42.9 Umbilical hernia without obstruction or gangrene (principal); Z87.891 Personal history of nicotine dependence
CPT/HCPCS: 74177; 80048; 83605; 85025; 96361; 96374; 96375; 99283; J7030; Q9967; J2405

== ENCOUNTER 2024-05-07 08:55 | Observation (INO) | payer OTHER, MEDICAID, SELFPAY ==
[2024-05-07] VITALS (8 sets, daily range): BP systolic 97–125; BP diastolic 55–83; PULSE 58–98; RESP 16–20; TEMP 36.7–38.1; O2SAT 94–100; BMI 21.9; BMI 22.1
--- NOTE | 2024-05-07 09:13 | EX.ED.DYSGE1 ---
HPI History of Present Illness Chief Complaint: Abd Pain Narrative Narrative: Patient is a 23-year-old female with past medical history of GERD, anxiety, umbilical hernia who presents to the emerged part with chief complaint of worsening abdominal pain. 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 She states that this morning when she woke up she felt like she worsening pain she did have vomiting as well. States that she dropped off her kids to school and came here to the hospital for further evaluation management. States that she got a call surgeon's office this morning as was instructed yesterday to. She rates her abdominal pain a 7 out of 10 and notes that it is very painful for her to stand up. [facility] Medical History Heart palpitations Marijuana use Alcohol use Easy bruising Restless legs Back pain Injury of head and neck Syncope Loss of consciousness Heartburn Bronchitis with influenza Shortness of breath on exertion Vapes nicotine containing substance Leg cramps Hypotension Vaginal delivery SROM (spontaneous rupture of membranes) Anxiety (05/06/24) Home Medications ?Medication ?Instructions ?Recorded ?Last Taken ?Type albuterol sulfate 90 mcg/actuation 1 - 2 puff inhalation Q4H PRN PRN 04/15/20 Unknown Rx aerosol inhaler Wheezing ##1 acetaminophen 325 mg tablet 650 mg PO ONCE PRN Pain 02/17/22 Unknown History (Tylenol) hydrocodone-acetaminophen 5-325mg 1 tab PO Q4H PRN PRN Pain 2 days 10/11/22 Unknown Rx 5mg-325mg #5 TABLETS dicyclomine 10 mg capsule 20 mg (2 x 10 mg) PO TID PRN PRN 11/20/22 Unknown Rx abdominal cramping #20 CAPSULES ondansetron 4 mg disintegrating 4 mg PO Q8H PRN PRN Nausea #10 tabs 11/20/22 Unknown Rx tablet metoclopramide HCl 10 mg tablet 10 mg PO Q6H PRN nausea and 03/09/24 Unknown Rx (Reglan) vomiting #15 tabs oxycodone-acetaminophen 5 mg-325 1 tab PO Q8H PRN pain 3 days #10 05/06/24 Unknown Rx mg tablet (Percocet) tabs Allergy/AdvReac Type Severity Reaction Status Date / Time No Known Allergies Allergy Verified 05/07/24 08:56 Family History Mother Heart disease Cancer skin Grandmother Hypertension Seizures Thyroid disorder Cancer skin Grandfather Cancer skin Surgical History History of umbilical hernia repair [place] teeth removed History of tonsillectomy Social History Smoking Status: Former smoker alcohol intake: never substance use type: does not use ROS ROS ED ROS Narrative Constitutional: Denies any fevers, chills, headaches, Ad[place], dizziness Cardiovascular: Denies chest pain or palpitations Respiratory: Denies coughing wheezing shortness of breath Abdomen: Complains of abdominal pain nausea vomiting as noted above denies any diarrhea : Denies any urinary symptoms Neurological: Denies numbness, weakness, tingling Musculoskeletal: Denies back pain Skin: Denies rashes or lesions EXAM Physical Exam Narrative Exam Narrative: General: Patient was lying in bed rest comfortably did not appear to be in acute distress Head: Atraumatic, normocephalic Eyes: PERRL bilaterally, EOMI bilateral, no conjunctival injection noted Neck: Soft, supple, trachea midline Cardiovascular: Regular rate and rhythm no murmurs gallops rubs noted Respiratory: Clear to auscultation bilaterally Abdomen: Soft, tenderness palpation just above her umbilicus palpable defect noted no rebound or guarding on exam, no overlying skin changes noted Extremities: +5/5 strength noted in the bilateral upper and lower extremities Neurological: Patient following commands and that she is at [facility] year is 2023 Skin: Warm, dry, intact Const Vital Signs: 05/07/24 08:56 05/07/24 11:04 05/07/24 13:16 Temperature 98.6 F 98.5 F 98.5 F Temperature Source Oral Oral Pulse Rate 98 58 L 84 Respiratory Rate 18 16 18 Blood Pressure 117/83 H 110/79 125/75 H Blood Pressure Mean 94 89 91 Pulse Ox 100 99 100 Oxygen Delivery Method Room Air Room Air MDM MDM MDM Narrative Medical decision making narrative: Patient is a 23-year-old female who presented to the emergency department chief complaint of worsening abdominal pain. Patient will have workup performed here on the differential diagnose includes but not limited to umbilical hernia, incarcerated hernia, strangulated hernia. Once workup is obtained reviewed she will be reevaluated. Patient be given IV fluids, morphine Zofran. Patient patient CBC reviewed showed evidence of leukocytosis of 12,000, hemoglobin was 12.3, plate count normal at 183. Patient sodium normal 141, potassium 3.7, creatinine normal at 0.78. Patient's AST and ALT were 9 and 12 respectively. Patient lipase normal at 18. Patient's urinalysis showed 25 leukocyte esterase 0-5 white blood cells with 3+ bacteria she is having some urinary symptoms we will treat her for urinary tract infection will send for culture. Patient test was negative. Patient on reevaluation was significantly bow maker machine tender on exam therefore CT abdomen pelvis was repeated. Patient CT abdomen pelvis with IV contrast reviewed and showed stable examination except for the left stranding surrounding the supraumbilical portion of the umbilical hernia. Reevaluation the patient she is still very tender in this region therefore we will reach out to general surgery Dr. Qureshi. Did discuss case with Dr. Qureshi who states that he will come in and evaluate the patient at bedside. On evaluation of the patient by general surgery team they will admit her to the hospital and plan on surgery tomorrow. Did discuss this with the patient and she is agreeable with this plan all question concerns answered bedside. Lab Data Labs: Laboratory Results - last 24 hr 05/07/24 05/07/24 09:25 09:28 WBC 12.5 H RBC 4.21 Hgb 12.3 Hct 39.0 MCV 92.6 MCH 29.2 MCHC 31.5 L RDW Std Deviation 42.0 RDW Coeff of Tony 12.5 Plt Count 183 MPV 10.9 Immature Gran % (Auto) 0.600 Neut % (Auto) 85.7 H Lymph % (Auto) 7.8 L [place] % (Auto) 5.1 Eos % (Auto) 0.5 Baso % (Auto) 0.3 Absolute Neuts (auto) 10.7 H Absolute Lymphs (auto) 0.98 Nucleated RBC % 0 Sodium 141 Potassium 3.7 Chloride 108 H Carbon Dioxide 25.0 Anion Gap 8 BUN 9 Creatinine 0.78 Estim Creat Clear Calc 92.00 Est GFR (MDRD) Af Amer 116 Est GFR (MDRD) Non-Af 95 BUN/Creatinine Ratio 11.5 Glucose 108 H Lactic Acid 1.0 Calcium 8.9 Total Bilirubin 1.00 AST 9 L ALT 12 L Alkaline Phosphatase 62 Total Protein 7.0 Albumin 3.8 Globulin 3.2 Albumin/Globulin Ratio 1.2 Lipase 18 Urine Color Yellow Urine Clarity Sl. Cloudy Urine pH 7.0 Ur Specific [place] 1.010 Urine Protein 15 H Urine Glucose (UA) Normal Urine Ketones 5 H Urine Occult Blood Negative Urine Nitrite Negative Urine Bilirubin Negative Urine Urobilinogen 1 H Ur Leukocyte Esterase 25 H Urine RBC 0 SEEN Urine WBC 0-5 SEEN Ur Squamous Epith Cells 5-10 SEEN Urine Bacteria 3+ Urine Mucus 2+ Urine Test Negative Radiography Diagnostic Testing: Clinical Impression(s) from Imaging Studies Abdomen/Pelvis CT 05/07/24 11:15 IMPRESSION: Stable examination except for less stranding surrounding the supraumbilical portion of the umbilical hernia. Electronically Signed: Tyron Loredo MD at 11:53 EDT , Discharge Plan Triage Chief Complaint: Abd Pain ED Provider: Ventura De La Rosa Dx/Rx/DC Orders Clinical Impression: Hernia, umbilical, Intractable abdominal pain, Nausea & vomiting, Urinary tract infection Prescriptions: No Action acetaminophen [Tylenol] 325 mg tablet 650 mg PO ONCE PRN (Reason: Pain) albuterol sulfate 1 INHALER inhaler 1 - 2 puff inhalation Q4H PRN PRN (Reason: Wheezing) Qty: 1 0RF hydrocodone-acetaminophen 5-325 mg tablet 1 tab PO Q4H PRN PRN (Reason: Pain) 2 Days Qty: 5 0RF ondansetron 4 mg tablet,disintegrating 4 mg PO Q8H PRN PRN (Reason: Nausea) Qty: 10 0RF dicyclomine 10 mg capsule 20 mg PO TID PRN PRN (Reason: abdominal cramping) Qty: 20 0RF oxycodone-acetaminophen [Percocet] 5-325 mg tablet 1 tab PO Q8H PRN (Reason: pain) 3 Days Qty: 10 0RF metoclopramide HCl [Reglan] 10 mg tablet 10 mg PO Q6H PRN (Reason: nausea and vomiting) Qty: 15 0RF Primary Care Provider: Michelle Bashir NP Referrals: Michelle Bashir NP, [facility] [Primary Care Provider] - Print Language: Mozambican
[2024-05-07] MEDS: 0.9% Normal Saline (1000mL) 1,000 ML 999 ML IV (09:26)
[2024-05-07] MEDS: Ondansetron 4 MG/2 ML Vial IV ×3 (09:26→21:15)
[2024-05-07] MEDS: Morphine 4 MG/ML Syringe IV ×2 (09:26→13:38)
[2024-05-07 09:29] LABS: Color, Urine Yellow (Yellow); Glucose, Dipstick Normal (Normal); Ketone-Dipstick 5 mg/dl (Negative); Leukocyte Esterase-Dipstick 25 /ul (Negative); Nitrite-Dipstick Negative (Negative); Occult Blood-Urine Negative /ul (Negative); Protein-Dipstick 15 mg/dl (Negative); Red Blood Cells-Urine 0 SEEN /hpf (0-5); Urine Bilirubin Dipstick Negative (Negative); Urine Clarity Sl. Cloudy (Clear); Urine Urobilinogen 1 mg/dl (Normal)
[2024-05-07 09:39] LABS: Bacteria 3+ /hpf (None Seen)
[2024-05-07 09:40] LABS: Absolute Lymphocyte Count 0.98 X10^3/uL (0.83-4.51); Absolute Neutrophil Count 10.7 X10^3/uL (2.0-7.7); Basophil# 0.04 X10^3/uL; Basophil% 0.3 % (0-1); Eosinophil# 0.06 X10^3/uL; Eosinophils% 0.5 % (0-5); Hemoglobin 12.3 g/dL (12.0-15.0); Lymphocyte # 0.98 X10^3/ul (0.83-4.51); Lymphocyte % 7.8 % (19-41); Mean Corp Hgb Conc 31.5 g/dL (32-36); Mean Corpuscular Hgb 29.2 pg (27.0-32.0); Mean Corpuscular Volume 92.6 fL (81-99); Mean Platelet Vol. 10.9 fl (6.2-12.0); Monocyte# 0.64 X10^3/uL; Monocyte% 5.1 % (0-10); NRBC Flagged by Analyzer 0 % (0-5); Neutrophil % 85.7 % (47-70); Platelet Count 183 K/mm3 (150-450); RBC Distribution Width CV 12.5 % (11.6-14.6); Red Blood Count 4.21 M/mm3 (4.2-5.4); White Blood Count 12.5 K/mm3 (4.4-11.0)
[2024-05-07 09:40] LABS: Internal QC Validated? YES +Cl - CLEAR BKGD; Mucous, Urine 2+ /hpf (<or=2+); Squamous Epithelial Cells - UA 5-10 SEEN /hpf (5-10); White Blood Cells 0-5 SEEN /hpf (0-5)
[2024-05-07 09:41] LABS: Pregnancy, Urine Negative Negative
[2024-05-07 10:04] LABS: ALB/GLOB Ratio 1.2 RATIO (0.9-2.4); AST(SGOT) 9 U/L (15-37); Alanine Aminotransfer ALT/SGPT 12 U/L (13-56); Albumin, Serum 3.8 g/dL (3.2-5.0); Alkaline Phosphatase 62 U/L (45-117); Anion Gap 8 (5-15); BUN 9 mg/dL (7-18); BUN/Creat Ratio 11.5 RATIO (10-20); Calcium,Total 8.9 mg/dL (8.5-10.1); Chloride 108 mmol/L (98-107); Creatinine, Serum 0.78 mg/dL (0.55-1.02); EST Glomerular Filtration Rate 95 mL/min (>60); Est Glom Filt Rate - Afr Amer 116 mL/min (>60); Globulin 3.2 g/dL (2.2-4.2); Glucose 108 mg/dL (74-106); Lipase 18 U/L (13-75); Potassium 3.7 mmol/L (3.5-5.1); Sodium Level 141 mmol/L (136-145)
--- NOTE | 2024-05-07 11:15 | CT_ITS ---
STUDY: CT ABDOMEN AND PELVIS WITH CONTRAST REASON FOR EXAM: Female, 23 years old. Hernia supraumbilical RADIATION DOSAGE (If Supplied By Facility): CTDIvol = ( 8.18 ) mGy, DLP = ( 349.30 ) mGycm TECHNIQUE: Transaxial images were obtained from the dome of the diaphragm to the symphysis pubis without oral contrast. IV 75mL Isovue-370 was administered. Sagittal and coronal images were reconstructed. Individualized dose optimization techniques were used for this CT. COMPARISON: Comparison is made with prior study May 06, 2024. FINDINGS: The visualized lung bases are unremarkable. The visualized portions of the heart are within normal limits. Normal liver. Normal gallbladder and extrahepatic biliary system. Borderline splenomegaly. Normal pancreas. Normal bilateral adrenal glands. Normal right kidney. Normal left kidney. Normal visualized stomach. Normal small intestine. Normal colon. The appendix is visualized and appears normal. Normal abdominal aorta. Normal inferior vena cava. Normal retroperitoneum. Normal urinary bladder. IUD seen within the uterus. Uterus is retroverted. There is a 2 cm cyst in the right ovary. There is a small umbilical hernia containing fat. Minimal residual stranding is seen in the supraumbilical portion of the umbilical hernia. Normal osseous structures. CT/Abdomen/Pelvis W IV Cont ONLY IMPRESSION: Stable examination except for less stranding surrounding the supraumbilical portion of the umbilical hernia. Electronically Signed: Tyron Loredo MD at 11:53 EDT ,
--- NOTE | 2024-05-07 13:09 | NURSING ---
MED SURG CARLOS DIAZ PAIN, MEDICAL HERNIA
--- NOTE | 2024-05-07 13:15 | HP.PCM_ITS ---
HPI - General General Date of Admission: 05/07/24 Date of Service: 05/07/24 Chief Complaint: Abdominal pain HPI Narrative BOWEN JONES, is a 23 F who presents with 2 day history of abdominal pain. Patient was evaluated in the ED yesterday secondary to the same pain at the umbilical region associated with nausea. She voices she wanted to be discharged and follow-up with our office today. She notes her abdominal pain became worse and she proceeded to the ED. She states she was told the hernia was in the same area as the hernia she previously had repaired in February [address] Qureshi. 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 She noted ever since then she has had some type of discomfort. She notes her children have been sick with colds recently and she had to lift them and take care of them which did not help. She notes this made the pain worse. She notes a history of smoking marijuana with the last time being over the weekend. She states she does not suffer from cannabinoid hyperemesis syndrome. Patient's CT scan of the ab/pel demonstrated stable examination compared to her CT scan yesterday except for less stranding surrounding the supraumbilical portion of the hernia. Yesterday CT scan was noted as fat-containing supraumbilical hernia with findings that may be associated with infarcted omental fat. Today patient has a WBC of 12.5 compared to yesterday's 7.4. She does have a left shift. UA is abnormal and consistent with urinary tract infection. Patient was given Ceftriaxone x 1 in the ED. [facility] Medical History Heart palpitations Marijuana use Alcohol use Easy bruising Restless legs Back pain Injury of head and neck Syncope Loss of consciousness Heartburn Bronchitis with influenza Shortness of breath on exertion Vapes nicotine containing substance Leg cramps Hypotension Vaginal delivery SROM (spontaneous rupture of membranes) Anxiety (05/06/24) Home Medications ?Medication ?Instructions ?Recorded ?Last Taken ?Type albuterol sulfate 90 mcg/actuation 1 - 2 puff inhalation Q4H PRN PRN 04/15/20 Unknown Rx aerosol inhaler Wheezing ##1 acetaminophen 325 mg tablet 650 mg PO ONCE PRN Pain 02/17/22 Unknown History (Tylenol) hydrocodone-acetaminophen 5-325mg 1 tab PO Q4H PRN PRN Pain 2 days 10/11/22 Unknown Rx 5mg-325mg #5 TABLETS dicyclomine 10 mg capsule 20 mg (2 x 10 mg) PO TID PRN PRN 11/20/22 Unknown Rx abdominal cramping #20 CAPSULES ondansetron 4 mg disintegrating 4 mg PO Q8H PRN PRN Nausea #10 tabs 11/20/22 Unknown Rx tablet metoclopramide HCl 10 mg tablet 10 mg PO Q6H PRN nausea and 03/09/24 Unknown Rx (Reglan) vomiting #15 tabs oxycodone-acetaminophen 5 mg-325 1 tab PO Q8H PRN pain 3 days #10 05/06/24 Unknown Rx mg tablet (Percocet) tabs Allergy/AdvReac Type Severity Reaction Status Date / Time No Known Allergies Allergy Verified 05/07/24 08:56 Family History Mother Heart disease Cancer skin Grandmother Hypertension Seizures Thyroid disorder Cancer skin Grandfather Cancer skin Surgical History History of umbilical hernia repair [place] teeth removed History of tonsillectomy Social History Smoking Status: Former smoker alcohol intake: never substance use type: does not use ROS Constitutional Constitutional: Reports systems reviewed and no addt'l complaints, except as documented Eyes Eyes: Reports systems reviewed and no addt'l complaints, except as documented ENT HEENT: Reports systems reviewed and no addt'l complaints, except as documented Cardiovascular Cardiovascular: Reports systems reviewed and no addt'l complaints, except as documented Respiratory/Chest Respiratory/Chest: Reports systems reviewed and no addt'l complaints, except as documented Gastrointestinal Gastrointestinal: Reports systems reviewed and no addt'l complaints, except as documented Genitourinary Genitourinary: Reports systems reviewed and no addt'l complaints, except as documented Musculoskeletal Musculoskeletal: Reports systems reviewed and no addt'l complaints, except as documented Integumentary Integumentary: Reports systems reviewed and no addt'l complaints, except as documented Neurologic Neurologic: Reports systems reviewed and no addt'l complaints, except as documented Psychiatric Psychiatric: Reports systems reviewed and no addt'l complaints, except as documented Endocrine Endocrinology: Reports systems reviewed and no addt'l complaints, except as documented Hematologic/Lymphatic Hematologic/Lymphatic: Reports systems reviewed and no addt'l complaints, except as documented Allergic/Immunologic Allergic/Immunologic: Reports systems reviewed and no addt'l complaints, except as documented Vital Signs Vital Signs Vital Signs: 05/07/24 08:56 05/07/24 11:04 Temperature 98.6 F 98.5 F Temperature Source Oral Oral Pulse Rate 98 58 L Respiratory Rate 18 16 Blood Pressure 117/83 H 110/79 Blood Pressure Mean 94 89 Pulse Ox 100 99 Oxygen Delivery Method Room Air Room Air Weight Weight: 123 lb 12.8 oz Body Mass Index (BMI) 21.9 Physical Exam Const alert, oriented x3 and no apparent distress HEENT normocephalic and head/scalp atraumatic Eyes PERRL Neck full ROM Lymph Lymphatic: no lymphadenopathy noted Resp normal respiratory effort and clear to auscultation bilaterally Cardio regular rate and regular rhythm GI GI Narrative: Abdomen- soft, tenderness at the supraumbilical region, where there is a small bulge. Previous umbilical hernia remains intact. no CVA tenderness Back/Spine no CVA tenderness Extremity normal to inspection Skin no rashes or lesions noted Neuro no focal motor deficits and no sensory deficits noted Psych mental status grossly normal, thought process normal and cooperative Mood & Affect: tearful Results Lab / Micro Data 05/07/24 09:28 05/07/24 09:28 Labs: Laboratory Results - last 24 hr 05/07/24 09:25: Urine Color Yellow, Urine Clarity Sl. Cloudy, Urine pH 7.0, Ur Specific [place] 1.010, Urine Protein 15 H, Urine Glucose (UA) Normal, Urine Ketones 5 H, Urine Occult Blood Negative, Urine Nitrite Negative, Urine Bilirubin Negative, Urine Urobilinogen 1 H, Ur Leukocyte Esterase 25 H, Urine RBC 0 SEEN, Urine WBC 0-5 SEEN, Ur Squamous Epith Cells 5-10 SEEN, Urine Bacteria 3+, Urine Mucus 2+, Urine Test Negative 05/07/24 09:28: WBC 12.5 H, RBC 4.21, Hgb 12.3, Hct 39.0, MCV 92.6, MCH 29.2, M CHC 31.5 L, RDW Std Deviation 42.0, RDW Coeff of [place] 12.5, Plt Count 183, MPV 10.9, Immature Gran % (Auto) 0.600, Neut % (Auto) 85.7 H, Lymph % (Auto) 7.8 L, [place] % (Auto) 5.1, Eos % (Auto) 0.5, Baso % (Auto) 0.3, Absolute Neuts (auto) 10.7 H, Absolute Lymphs (auto) 0.98, Nucleated RBC % 0, Sodium 141, Potassium 3.7, Chloride 108 H, Carbon Dioxide 25.0, Anion Gap 8, BUN 9, Creatinine 0.78, Estim Creat Clear Calc 92.00, Est GFR (MDRD) Af Amer 116, Est GFR (MDRD) Non-Af 95, BUN/Creatinine Ratio 11.5, Glucose 108 H, Lactic Acid 1.0, Calcium 8.9, Total Bilirubin 1.00, AST 9 L, ALT 12 L, Alkaline Phosphatase 62, Total Protein 7.0, Albumin 3.8, Globulin 3.2, Albumin/Globulin Ratio 1.2, Lipase 18 Imaging Radiology Impression Abdomen/Pelvis CT 05/07/24 11:15 IMPRESSION: Stable examination except for less stranding surrounding the supraumbilical portion of the umbilical hernia. Electronically Signed: Tyron Loredo MD at 11:53 EDT , Assessment & Plan Assessment/Plan (1) Irreducible epigastric hernia: PLAN: I have evaluated this patient in conjunction with Dr. Qureshi. Patient is a 23 y/o F who presents to the ED for the second time in 2 days with worsening abdominal pain superior to her umbilicus. She notes a previous umbilical hernia repair with sutures. She notes the lump and pain are right above the repair. Patient's CT scan confirms patient has a supraumbilical epigastric hernia incarcerated with fat. She notes associated nausea and vomiting. Admission has been discussed with the patient, who is agreeable. She is also agreeable to follow the lifting restrictions of nothing greater than 10 pounds for 4 weeks. She states her work is willing to work with her. Patient will be admitted for observation for pain control, IV fluids and surgical intervention. Dr. Qureshi will plan to perform an open simple supraumbilical epigastric hernia repair. Procedure details, risks and benefits were reviewed with the patient. Patient states she recalls the procedure and all it entails from the last time. Patient has had the opportunity to ask and have questions answered. Patient verbally understands and agrees with the plan. Thank you for allowing us to participate in this patient's care. Charges/Coding Visit Charges OBSV E&M: 96642 Observ/hosp same date L2
[2024-05-07] MEDS: Ceftriaxone 1 GM/50 ML BAG IV (13:42)
[2024-05-07] MEDS: Piperacil/Tazobactam 3.375 GM in 0.9% Normal Saline (50mL MB+) 50 ML IV (16:08)
[2024-05-07] MEDS: Acetaminophen 500 MG Tablet 1000 MG PO (16:09)
--- NOTE | 2024-05-07 18:33 | NURSING ---
meds unverified by pharmacy and unable to scan meds
[2024-05-07] MEDS: 0.9% Normal Saline (1000mL) 1,000 ML 100 ML IV (21:15)
[2024-05-07] MEDS: 0.9% Saline Lock 10 ML Syringe IV (21:16)
[2024-05-07] MEDS: oxyCODONE 5 MG Tablet PO (22:54)
[2024-05-08] VITALS (14 sets, daily range): BP systolic 97–126; BP diastolic 57–89; PULSE 67–102; RESP 16–20; TEMP 36.2–37.5; O2SAT 95–100; BMI 22.1
--- NOTE | 2024-05-08 | HERN_PTH ---
PATIENT: BOWEN JONES LOC: MS3 U#:[id number] AGE/SX: ROOM: NM315 RE05/07/[address]: Dr. Conor Qureshi MD : 2000 BED: 1 DIS: 05/09/2024 SPEC #: [id number] RECD: 05/08/24 18:11 STATUS: LULU EDEN #: [id number] MONIKA: 05/08/24 00:[address]: Conor Qureshi DEPT: SURGICAL PATHOLOGY RECD BY: Jc Gee ENTERED: 05/09/24 11:03 SP TYPE: Hernia OTHR DR: DIPESH Goel Tissues: HERNIA Procedures: Surgery Specimen Level II HEADER OPERATION: Open supraumbilical epigastric hernia repair PRE-OP DIAGNOSIS: Irreducible epigastric hernia TISSUE SUBMITTED: Hernia contents MICROSCOPIC DIAGNOSIS Hernia contents: Pieces of mature adipose tissue, consistent with hernia contents. SJ.mr 05/12/2024 MICROSCOPIC DESCRIPTION Slides are reviewed. GROSS DESCRIPTION Received in fixative is one container labeled with the patient's name and designated Hernia contents. The specimen consists of multiple variable sized pieces of yellow adipose tissue measuring in aggregate 2.5 x 2.0 x 0.5cm. Larger pieces are bisected. No mass lesion is identified. The entire specimen is submitted in one cassette. 05/09/2024 TC:5 CPT:45500
[2024-05-08] MEDS: 0.9% Normal Saline (1000mL) 1,000 ML 100 ML IV (05:57)
[2024-05-08] MEDS: Acetaminophen 325 MG Tablet 650 MG PO (06:00)
[2024-05-08 06:55] LABS: Absolute Lymphocyte Count 1.18 X10^3/uL (0.83-4.51); Absolute Neutrophil Count 7.6 X10^3/uL (2.0-7.7); Basophil# 0.04 X10^3/uL; Basophil% 0.4 % (0-1); Eosinophil# 0.11 X10^3/uL; Eosinophils% 1.1 % (0-5); Hematocrit 34.4 % (37-47); Lymphocyte # 1.18 X10^3/ul (0.83-4.51); Lymphocyte % 12.3 % (19-41); Mean Corpuscular Hgb 29.3 pg (27.0-32.0); Mean Corpuscular Volume 91.7 fL (81-99); Mean Platelet Vol. 11.1 fl (6.2-12.0); Monocyte# 0.64 X10^3/uL; Monocyte% 6.6 % (0-10); NRBC Flagged by Analyzer 0 % (0-5); Neutrophil # 7.59 X10^3/uL (2.7-7.7); Neutrophil % 78.9 % (47-70); Platelet Count 142 K/mm3 (150-450); RBC Distribution Width CV 12.1 % (11.6-14.6); RBC Distribution Width SD 40.9 fl (35.1-43.9); Red Blood Count 3.75 M/mm3 (4.2-5.4); White Blood Count 9.6 K/mm3 (4.4-11.0)
[2024-05-08 07:17] LABS: Anion Gap 7 (5-15); BUN 6 mg/dL (7-18); BUN/Creat Ratio 9.3 RATIO (10-20); Calcium,Total 8.2 mg/dL (8.5-10.1); Chloride 109 mmol/L (98-107); Creatinine, Serum 0.64 mg/dL (0.55-1.02); EST Glomerular Filtration Rate 120 mL/min (>60); Est Glom Filt Rate - Afr Amer 145 mL/min (>60); Estimated Creatinine Clearance 112.12 ml/min; Glucose 87 mg/dL (74-106); Potassium 3.4 mmol/L (3.5-5.1); Sodium Level 137 mmol/L (136-145)
--- NOTE | 2024-05-08 08:29 | PN.SURG_ITS ---
Subjective Subjective Patient evaluated resting comfortably in bed. She notes pain is slightly improved. She was noted to have a slight temperature over night ranging from 100.6-99.2 F. Patient is ready and awaiting surgery. She voices she would like to go home following the procedure if possible. Objective Data Objective Data Vital Signs: Vital Signs Temp Pulse Resp BP Pulse Ox O2 Del Method 99.5 F H 78 18 101/64 99 Room Air 05/08/24 03:54 05/08/24 03:54 05/08/24 03:54 05/08/24 03:54 05/08/24 03:54 05/08/24 03:54 Oxygen Delivery Method Room Air Weight: 124 lb 12.8 oz Body Mass Index (BMI) 22.1 Intake & Output: Intake and Output for Last 24 Hours 05/06/24 05/07/24 05/08/24 23:59 23:59 23:59 Intake Total 1100 / 1400 1170 / 1170 Balance 1100 / 1400 1170 / 1170 Lab / Micro Data 05/08/24 06:40 05/08/24 06:40 Labs: Laboratory Results - last 24 hr 05/07/24 09:25: Urine Color Yellow, Urine Clarity Sl. Cloudy, Urine pH 7.0, Ur Specific [place] 1.010, Urine Protein 15 H, Urine Glucose (UA) Normal, Urine Ketones 5 H, Urine Occult Blood Negative, Urine Nitrite Negative, Urine Bilirubin Negative, Urine Urobilinogen 1 H, Ur Leukocyte Esterase 25 H, Urine RBC 0 SEEN, Urine WBC 0-5 SEEN, Ur Squamous Epith Cells 5-10 SEEN, Urine Bacteria 3+, Urine Mucus 2+, Urine Test Negative 05/07/24 09:28: WBC 12.5 H, RBC 4.21, Hgb 12.3, Hct 39.0, MCV 92.6, MCH 29.2, M CHC 31.5 L, RDW Std Deviation 42.0, RDW Coeff of [place] 12.5, Plt Count 183, MPV 10.9, Immature Gran % (Auto) 0.600, Neut % (Auto) 85.7 H, Lymph % (Auto) 7.8 L, [place] % (Auto) 5.1, Eos % (Auto) 0.5, Baso % (Auto) 0.3, Absolute Neuts (auto) 10.7 H, Absolute Lymphs (auto) 0.98, Nucleated RBC % 0, Sodium 141, Potassium 3.7, Chloride 108 H, Carbon Dioxide 25.0, Anion Gap 8, BUN 9, Creatinine 0.78, Estim Creat Clear Calc 92.00, Est GFR (MDRD) Af Amer 116, Est GFR (MDRD) Non-Af 95, BUN/Creatinine Ratio 11.5, Glucose 108 H, Lactic Acid 1.0, Calcium 8.9, Total Bilirubin 1.00, AST 9 L, ALT 12 L, Alkaline Phosphatase 62, Total Protein 7.0, Albumin 3.8, Globulin 3.2, Albumin/Globulin Ratio 1.2, Lipase 18 05/08/24 06:40: WBC 9.6, RBC 3.75 L, Hgb 11.0 L, Hct 34.4 L, MCV 91.7, MCH 29.3, MCHC 32.0, RDW Std Deviation 40.9, RDW Coeff of [place] 12.1, Plt Count 142 L, MPV 11.1, Immature Gran % (Auto) 0.700, Neut % (Auto) 78.9 H, Lymph % (Auto) 12.3 L, [place] % (Auto) 6.6, Eos % (Auto) 1.1, Baso % (Auto) 0.4, Absolute Neuts (auto) 7.6, Absolute Lymphs (auto) 1.18, Nucleated RBC % 0, Sodium 137, Potassium 3.4 L , Chloride 109 H, Carbon Dioxide 21.0, Anion Gap 7, BUN 6 L, Creatinine 0.64, Estim Creat Clear Calc 112.12, Est GFR (MDRD) Af Amer 145, Est GFR (MDRD) Non-Af 120, BUN/Creatinine Ratio 9.3 L, Glucose 87, Calcium 8.2 L Micro: Microbiology 05/07/24 17:35 Mucosa - Nose SARS-CoV-2, Influenza & RSV (PCR) - Final Radiography Diagnostic Testing: Radiology Impression Abdomen/Pelvis CT 05/07/24 11:15 IMPRESSION: Stable examination except for less stranding surrounding the supraumbilical portion of the umbilical hernia. Electronically Signed: Tyron Loredo MD at 11:53 EDT , Physical Exam GI GI Narrative: Abdomen- tenderness to palpation at the supraumbilical area Assessment & Plan Assessment/Plan (1) Irreducible epigastric hernia: PLAN: I am following this patient in conjunction with Dr. Qureshi. He will independently evaluate this patient. Plan for hernia repair later this afternoon NPO today Pre-op antibiotic has been ordered Will plan to send patient home on Macrobid x 3 days for urinary tract infection. Urine culture pending Hopeful discharge post-procedure today Charges/Coding Visit Charges Inpatient E&M: 24838 Subs Hosp L1 (pre-op; procedure today)
--- NOTE | 2024-05-08 10:28 | CASEMGMT ---
DONALD GUZMAN Assessment: Face to Face with pt for initial transition planning/care coordination assessment. DONALD GUZMAN introduced self and role at [facility], pt voices understanding and consents to assessment. Pt is A&O x4 and answers all questions appropriately at this time. Pt standing in room talking with friend. Pt agreeable to assessment with friend present. Care providers, pharmacy, and demographics verified/updated. Admitting Dx: incarcerated supraumbilical hernia Strata Score: 2 PCP:Michelle Bashir NP Specialists:Denies [facility]: yes LNOK: Makenzie Nielsen, mother; Apolinar Mustafa, father Living Arrangements: Pt lives with 2 children in a 2nd story apt with 12 steps to enter with a rail. Pt reports she is I in ADL and IADL and denies concerns at home. One of pt children are with their father and the other child is with the pt mother while she is hospitalized. Transportation: Pt drives self and denies concerns with transportation. DME:Denies HHC/SNF: Denies hx of Pt states no concerns with going home at time of dc. Pt states no further concerns/needs. CM to follow. Advised pt to ask CM if any further question/concerns/needs arise, voices understanding. Pt Goal: Home Plan: Home Gucci BENNETT CM
[2024-05-08] MEDS: Ondansetron 4 MG/2 ML Vial IV ×2 (11:48→18:05)
--- NOTE | 2024-05-08 13:40 | PRE.ANES_ITS ---
ASA Classification* ASA Classification ASA Classification: 2 Assessment & Plan Anesthesia* Anesthesia Assessment Anesthesia Assessment: Discussed sedation and/or anesthesia options, risks, benefits, and alternatives with patient/parents/legal guardian/POA. Questions invited. The patient/parents/legal guardian/POA seems to understand and agrees to proceed with anesthesia plan. Reviewed the physical assessment, medical history, allergy history and patient home medications list prior to surgery/procedure/anesthetic and documented any changes. Performed airway and anesthesia risk assessments. Anesthesia Type Anesthesia Type: General (see written pre anesthesia record for full assessment) Anesthesia Focused Assessment* Temperature: 98.4 F Pulse Rate: 76 Blood Pressure: 119/80 Respiratory Rate: 16 Pulse Ox: 100 Airway Assessment Mouth opens: >3 cm Mallampati Score: II Focused Labs Anesthesia Preop lab: CBC WBC 9.6 K/mm3 (4.4-11.0) 05/08/24 06:40 RBC 3.75 M/mm3 (4.2-5.4) L 05/08/24 06:40 Hgb 11.0 g/dL (12.0-15.0) L 05/08/24 06:40 Hct 34.4 % (37-47) L 05/08/24 06:40 Plt Count 142 K/mm3 (150-450) L 05/08/24 06:40 CHEMISTRY Potassium 3.4 mmol/L (3.5-5.1) L 05/08/24 06:40 Sodium 137 mmol/L (136-145) 05/08/24 06:40 BUN 6 mg/dL (7-18) L 05/08/24 06:40 Creatinine 0.64 mg/dL (0.55-1.02) 05/08/24 06:40 Glucose 87 mg/dL (74-106) 05/08/24 06:40 COAG PT 14.1 SECONDS (11.7-14.9) 03/06/22 12:00 HCG, Quant 26949 mIU/mL (1-3) H 03/20/24 08:55 Urine Test Negative Negative 05/07/24 09:25 Pre-Assessment Diagnosis/Proposed Procedure Planned Operative Procedure(s): umbilical hernia Anesthesia History 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 When Was Last Pacemaker Check QUESTION #4 FULL TEXT: You/Your Family Experience fever (hyperthermia) with Anesthesia Last Oral Intake Last Oral intake: Last Oral Intake NPO since 00:00 05/08/24 13:15 Meds taken in AM with sips of No 05/08/24 13:15 water? Meds patient instructed to take am of surgery PONV PONV - cylinder press operator helper: PONV - cylinder press operator helper Female HX of Motion Sickness HX of N/V After Surgery Non-Smoker Duration of Surgery greater than 60 minutes Number of Risk Factors PONV Score Height & Weight Height & Weight: Anesthesia: Height & Weight Height 5 ft 3 in 05/08/24 13:15 Weight: 56.608 kg 05/08/24 13:15 Body Mass Index (BMI) 22.1 05/08/24 13:15 Respiratory Assessment Respiratory Assessment - cylinder press operator helper: Respiratory Tract Infection Hx - cylinder press operator helper Hx Respiratory Tract Infection No 05/07/24 21:03 STOP Sleep Apnea STOP Sleep Apnea - cylinder press operator helper: STOP Sleep Apnea - cylinder press operator helper Hx Hypertension No 05/07/24 18:29 Hx Sleep Apnea No 05/07/24 18:29 CPAP BIPAP Do you snore loudly (louder No 05/07/24 18:29 than talking or can be heard Do you often feel tired/ Yes 05/07/24 18:29 fatigued/ sleepy during daytime? Has anyone observed you stop No 05/07/24 18:29 breathing during sleep? STOP Results Negative 05/07/24 18:29 QUESTION #5 FULL TEXT : Do you snore loudly (louder than talking or can be heard through closed doors)? Tobacco Use History Tobacco Use History - cylinder press operator helper: Tobacco Use History - cylinder press operator helper Tobacco Use Smoking Status Former smoker 05/07/24 18:29 Hx Tobacco Use Yes 05/07/24 18:29 Years Smoking Packs Smoked per Day Smoking Cessation Date was Yes - quit smoking within 15 05/07/24 18:29 within the last 15 years years Hx Smoking Cessation Date 02/21/24 05/07/24 18:29 Hx Smoking Cessation No 05/07/24 18:29 Counseling Hematologic Medial History Hematologic Hx - cylinder press operator helper: Hematologic Medical Hx - gill box tender Hx of Blood Transfusion Yes 05/07/24 18:29 Hx of Transfusion in last 3 No 05/07/24 18:29 Months Date of Last Transfusion (if within last 3 months) Ever experience any problems No 05/07/24 18:29 with transfusion(s)? Specify any problems Hx of Preganancy in last 3 Yes 05/07/24 18:29 Months Nurse Filling Out Transfusion FSTEINER 05/07/24 18:29 & Questions: Date: 05/07/24 05/07/24 18:29 Time: 18:31 05/07/24 18:29 Patient unable to answer at this time (ie. confused, unrespo /Reproduction History /Reproductive History - cylinder press operator helper: /Reproductive Hx- cylinder press operator helper Hx Now No 05/07/24 21:03 Gestational Age (in weeks): EDC: Hx Hx Para Hx Section SAB No 05/07/24 21:03 Active Medications Active Medications: Current Medications Generic Name Dose Route Start Last Admin Trade Name Freq PRN Reason Stop Dose Admin Acetaminophen 650 mg 05/07/24 18:19 05/08/24 06:00 Acetaminophen 325 Mg Tablet PO 650 mg Q6H PRN PRN Administration Pain 1-10 Or Fever >100.7 Sodium Chloride 1,000 mls @ 100 mls/hr 05/07/24 18:19 05/08/24 05:57 IV 100 mls/hr .Q10H SILVIANO Administration Sodium Chloride 250 mls @ 15 mls/hr 05/07/24 18:34 IV .[id number] PRN Additional IVPB Infusion Sodium Chloride 250 mls @ 15 mls/hr 05/07/24 18:34 IV .[id number] PRN Saline Flush Lactated Ringer's 1,000 mls @ 15 mls/hr 05/08/24 13:45 IV .Q48H SILVIANO Ondansetron HCl 4 mg 05/07/24 18:19 05/08/24 11:48 Ondansetron 4 Mg/2 Ml Vial IV 4 mg Q8H PRN PRN Administration NAUSEA/VOMITING Oxycodone HCl 5 mg 05/07/24 18:19 05/07/24 22:54 Oxycodone 5 Mg Tablet PO 5 mg Q4H PRN PRN Administration Pain Score 4-10 Sodium Chloride 10 - 40 ml 05/07/24 18:34 05/07/24 21:16 0.9% Saline Lock 10 Ml Syringe IV 10 ml UD PRN Administration SALINE FLUSH PFSH Medical History Smoker Acute bronchitis Irregular heart beat Migraines Heart palpitations Marijuana use Alcohol use Easy bruising Restless legs Back pain Injury of head and neck Syncope Loss of consciousness Heartburn Bronchitis with influenza Shortness of breath on exertion Vapes nicotine containing substance Leg cramps Hypotension Vaginal delivery SROM (spontaneous rupture of membranes) Anxiety (05/06/24) Home Medications ?Medication ?Instructions ?Recorded ?Last Taken ?Type albuterol sulfate 90 mcg/actuation 1 - 2 puff inhalation Q4H PRN PRN 04/15/20 Unknown Rx aerosol inhaler Wheezing ##1 acetaminophen 325 mg tablet 650 mg PO ONCE PRN Pain 02/17/22 Unknown History (Tylenol) ondansetron 4 mg disintegrating 4 mg PO Q8H PRN PRN Nausea #10 tabs 11/20/22 Unknown Rx tablet nitrofurantoin 100 mg PO Q12H 3 days #6 caps 05/08/24 Unknown Rx monohydrate/macrocrystals 100 mg capsule (Macrobid) Allergy/AdvReac Type Severity Reaction Status Date / Time No Known Allergies Allergy Verified 05/07/24 08:56 Family History Mother Heart disease Cancer skin Grandmother Hypertension Seizures Thyroid disorder Cancer skin Grandfather Cancer skin Surgical History History of umbilical hernia repair [place] teeth removed History of tonsillectomy Social History Smoking Status: Former smoker alcohol intake: never substance use type: does not use Review of Systems (Anesthesia) ROS Narrative System reviewed and no additional complaints, except as documented.
[2024-05-08] MEDS: Lactated Ringers 1,000 ML 15 ML IV ×2 (13:45→15:58)
[2024-05-08] MEDS: Bupiv/Epi 0.25% 30 ML Vial (13:56)
[2024-05-08] MEDS: Cefotetan 1 GM in 0.9% Normal Saline (50mL MB+) 50 ML IV (14:11)
--- NOTE | 2024-05-08 15:26 | OP.PCM_ITS ---
Report of Operation Date of Procedure: 05/08/24 Pre-Operative Diagnosis: Epigastric hernia with incarcerated fat Post-Operative Diagnosis: Same Surgery/Procedure Performed:: Primary repair of epigastric hernia Description of Surgical Findings:: ? Central defect containing lobule of omental fat as well as two minute defects also incarcerated with small lobules of fat that were made into 1 confluent defect prior to closure Surgeon: Conor Qureshi fuel pilot engineer: [place] Syed Type of Anesthesia: General/Supplemental Anesthesiologist: Maximo Matamoros Specimen's removed: fat from hernia defect Estimated Blood Loss (mL): 5 Description of Procedure: After appropriate identification in the preoperative holding area patient was brought to the operating room where [he/she] was positioned supine on the operating room table. Preoperative antibiotics were being administered during this time. Patient was then induced with a general anesthetic and [his/her] abdomen was prepped and draped in usual sterile fashion. A formal timeout was conducted to confirm both patient and the procedure amongst those present. Observing the patient's prior scars, I elected to use a infraumbilical scar for our incision line and performed a local block along this tissue using quarter percent Marcaine. This incision was made sharply and deepened down through the dermis and subcu tissue with use of electrocautery. We quickly encountered abundant scar tissue as we approached the umbilical stalk and fascia. I used a hemostat to bluntly dissect out and encircled the umbilical stalk and took great care to avoid injury to the overlying skin. Gradually this was freed from the underlying scar and soft tissue attachments until we were able to visualize patient's fascial defect. This measured [2 cm x 2 cm] round. A [size] cm Ventralex ST hernia patch was used for this purpose. The mesh was placed through the hernia opening in a folded confirmation and then allowed to assume a flat position under the fascia. The tails of the mesh were split and were ta cked in the fascia superiorly and inferiorly using 2-0 Prolene. Then the fascial defect was closed with 0 Ethibond sutures in an interrupted fashion using a eaxexd-je-fipmo technique. This resulted in a nice closure of the fascial defects with a mesh underlay. The skin of the umbilical stalk was tacked down to the fascia with a interrupted 3-0 Vicryl. The same 3-0 Vicryl was used to perform a number of interrupted sutures along Fish's fascia and the dermis to reapproximate the wound and close down some of the space from our dissection down to the fascia. Lastly, a 4-0 Monocryl was used to close the skin in a running subcuticular technique. Steri's were applied and a rolled Telfa was placed into the umbilical concavity. A OpSite dressing was placed atop this and the area around the Telfa roll was evacuated to provide a bit of a compressive dressing. This concluded the formal portion of the case and the patient was allowed to awaken from general anesthetic. She was taken to PACU for ongoing recovery. After appropriate identification in the preoperative holding area patient was brought to the operating room where he was positioned supine on the operating room table. Preoperative antibiotics were administered during this time. Patient was then induced with a general anesthetic and his abdomen was prepped and draped in usual sterile fashion. A formal timeout was conducted to confirm both patient and the procedure amongst those present. I created a curvilinear infraumbilical incision and this incision was made sharply and deepened down through the dermis and subcu tissue. I used a hemostat and right angled clamp to bluntly dissect out and encircle the umbilical stalk. I then sharply removed the overlying skin from the stalk. Gradually this was freed from the underlying fascia until we were able to visualize patient's fascial defect. This measured 1.5 cm round. As the fascia was completely cleared of overlying attachments, I also tried to clear any adherent omentum to the inner diameter of this fascial defect using sharp dissection. Through this dissection, I circumferentially freed the hernia contents from the edge of the fascia. For the closure of this fascial defect, I elected to incorporate a mesh closure. A 4.[address] hernia patch was used for this purpose. The mesh was placed through the hernia opening in a folded conformation and then allowed to assume a flat position under the fascia. The tails of the mesh were split and were tacked in the fascia laterally using 2-0 Prolene. Then the fascial defect was closed with 0 Ethibond sutures in an interrupted fashion using a wandta-by-hxrdw technique. This resulted in a nice closure of the fascial defects with a mesh underlay. The skin of the umbilical stalk was tacked down to the fascia with a interrupted 3-0 Vicryl. The same 3-0 Vicryl was used to perform a number of interrupted sutures along Fish's fascia and the dermis to reapproximate the wound and close down some of the space from our dissection down to the fascia. Lastly, a 4-0 Monocryl was used to close the skin in a running subcuticular technique. Steri's were applied and a rolled Telfa was placed into the umbilical concavity. A OpSite dressing was placed atop this and the area around the Telfa roll was evacuated to provide a bit of a compressive dressing. This concluded the formal portion of the case and the patient was allowed to awaken from general anesthetic. He was taken to PACU for ongoing recovery. Complications None
--- NOTE | 2024-05-08 15:26 | PCM.OPRPT ---
Report of Operation Date of Procedure: 05/08/24 Pre-Operative Diagnosis: Epigastric hernia with incarcerated fat Post-Operative Diagnosis: Same Surgery/Procedure Performed:: Primary repair of epigastric hernia Description of Surgical Findings:: ? Central defect containing lobule of omental fat as well as two minute defects also incarcerated with small lobules of fat that were made into 1 confluent defect prior to closure Surgeon: Conor Qureshi orthopaedic general: [place] Syed Type of Anesthesia: General/Supplemental Anesthesiologist: Maximo Matamoros Specimen's removed: fat from hernia defect Estimated Blood Loss (mL): 5 Description of Procedure: After appropriate identification in the preoperative holding area patient was brought to the operating room where she was positioned supine on the operating room table. Preoperative antibiotics were administered during this time. Patient was then induced with a general anesthetic and her abdomen was prepped and draped in usual sterile fashion. A formal timeout was conducted to confirm both patient and the procedure amongst those present. Observing the patient's umbilical piercing and palpating the area of the incarcerated fat, I elected to use a midline incision approximately 3 cm in length directly superior to the umbilical piercing and performed a local block along this tissue using quarter percent Marcaine. This incision was made sharply and deepened down through the dermis and subcu tissue with use of electrocautery. We quickly encountered the incarcerated fatty tissue. I used a hemostat to bluntly dissect out and encircled the hernia contents which were primarily reduced to the peritoneum. However, there was a small lobule of fat that I chose to amputate free as it appeared attenuated at the neck RV defect. Circumferentially then I said about clearing the fascia of soft tissue attachments so as to ensure complete closure of the hernia defect, but in trying to achieve this clearance I encountered 2 smaller lobules of herniated fat?1 inferiorly, and 1 superior laterally. Indeed, these appear to protrude through 2 separate more minute fascial defects just millimeters from the primary defect. The slight fascial bridges that these areas were divided to make 1 confluent hernia defect. Then the fascia was closed using 2-0 Ethibond suture in a xeummh-ax-bliuu technique. 2 sutures are required to close the defect. Next a 3-0 Vicryl suture was used to close down the space with a running deep dermal suture. Lastly, a 4-0 Monocryl was used to close the skin in a running subcuticular technique. Steri's were applied along with an OpSite dressing. This concluded the formal portion of the case and the patient was allowed to awaken from general anesthetic. She was taken to PACU for ongoing recovery. Grafts/Implants Used: None Complications None Procedures Digestive [id number]: 23812 RPR AA HRN 1ST < 3 NCR/STRN
--- NOTE | 2024-05-08 15:29 | PCM.DC ---
Discharge Instructions Diet Discharge Diet: No restrictions Activity May shower in (days): 1 Lifting Restrictions: No lifting greater than 10 pounds x 5 weeks postop Dressing / Incision Call your doctor if your incision/area has: Sudden Increased Bleeding, Increased Pain/ Swelling, Increased Redness, Foul Smelling Discharge and Swelling at the incision site Call your doctor if you observe: Fever of 101 or Higher Remove Dressing in: 1 day Cleanse incision/area with: Soap & Water Follow Up Care Please Follow Up With: Conor Qureshi MD When: 10 to 14 days postop Test Results: Test results from this visit will be discussed in further detail at your follow-up appointment, if applicable. Discharge Plan Admission Admit Date/Time: 05/07/24 13:08 Primary Reason for Your Visit: epigastric hernia repair Attending Provider: Conor Qureshi Primary Care Provider: Michelle Bashir NP Instructions Forms: Work / School Excuse Discharge Orders/Prescriptions Prescriptions: New nitrofurantoin monohyd/m-cryst [Macrobid] 100 mg capsule 100 mg PO Q12H 3 Days Qty: 6 0RF Rx Instructions: must administer with a meal/food oxycodone 5 mg Tablet 5 mg PO Q4H PRN PRN (Reason: Pain Score 4-10) 3 Days Qty: 14 0RF Continued acetaminophen [Tylenol] 325 mg tablet 650 mg PO ONCE PRN (Reason: Pain) albuterol sulfate 1 INHALER inhaler 1 - 2 puff inhalation Q4H PRN PRN (Reason: Wheezing) Qty: 1 0RF ondansetron 4 mg tablet,disintegrating 4 mg PO Q8H PRN PRN (Reason: Nausea) Qty: 10 0RF Referrals / Follow Up: Michelle Bashir NP, COMBINATION TECHNICIAN-C [Primary Care Provider] - Disposition Disposition (needs filled in before D/C Order can be placed): Home, Self Care
--- NOTE | 2024-05-08 15:34 | PCM.POST.ANE ---
Anesthesia: Postop Eval I Current Vital Signs Temperature: 97.2 F Pulse Rate: 102 Blood Pressure: 102/73 Respiratory Rate: 16 Pulse Ox: 99 Oxygen Delivery Method: Room Air Assessment Airway patent: Yes Spontaneous unlabored respirations: Yes Mental status: Awake and Calm nausea: No Vomiting: No Anesthesia Complication: No Fluid Hydration Crystalloid volume administer (ml): 900 Total IV fluid infused: 900 Progress Note Anesthesia document: Postop Eval 1 completed: Yes
--- NOTE | 2024-05-08 16:32 | POSTOPAN2_ITS ---
Anesthesia Postop Eval I Sum Postop Eval Completion status Anesthesia document: Postop Eval 1 completed: Yes Anesthesia Postop Eval I Summary Anesthesia Postop Eval I Summary: Anesthesia Postop Eval I: Assessment Summary Airway patent Yes 05/08/24 15:35 SUPERVISOR [email or web address] Spontaneous unlabored Yes 05/08/24 15:35 SUPERVISOR CALIBRATION.[email or web address] respirations Mental status Awake,Calm 05/08/24 15:35 SUPERVISOR CALIBRATION.[email or web address] nausea No 05/08/24 15:35 SUPERVISOR CALIBRATION.[email or web address] Vomiting No 05/08/24 15:35 SUPERVISOR CALIBRATION.[email or web address] Anesthesia Postop Eval I: Fluid Summary Crystalloid volume administer 900 05/08/24 15:35 SUPERVISOR CALIBRATION.[email or web address] (ml) Colloids volume administered ( ml) Blood Product volume administered (ml) Total IV fluid infused 900 05/08/24 15:35 SUPERVISOR CALIBRATION.[email or web address] Anesthesia Postop Eval I: Summary Notes Anesthesia Complication No 05/08/24 15:35 SUPERVISOR CALIBRATION.[email or web address] Anesthesia Complication Comment: Post-operative progress note Anesthesia: Postop Eval II Evaluation Mental status: Awake Pain Level: 0 nausea: No Vomiting: No
--- NOTE | 2024-05-08 16:32 | PCM.POSTANE2 ---
Anesthesia Postop Eval I Sum Postop Eval Completion status Anesthesia document: Postop Eval 1 completed: Yes Anesthesia Postop Eval I Summary Anesthesia Postop Eval I Summary: Anesthesia Postop Eval I: Assessment Summary Airway patent Yes 05/08/24 15:35 STOCKROOM [email or web address].[email or web address] Spontaneous unlabored Yes 05/08/24 15:35 STOCKROOM [email or web address].[email or web address] respirations Mental status Awake,Calm 05/08/24 15:35 STOCKROOM [email or web address].[email or web address] nausea No 05/08/24 15:35 STOCKROOM KEEPER.SIHLOHOBRobert Vomiting No 05/08/24 15:35 STOCKROOM KEEPER.SHILOHOBRobert Anesthesia Postop Eval I: Fluid Summary Crystalloid volume administer 900 05/08/24 15:35 STOCKROOM [email or web address].[email or web address] (ml) Colloids volume administered ( ml) Blood Product volume administered (ml) Total IV fluid infused 900 05/08/24 15:35 STOCKROOM [email or web address].[email or web address] Anesthesia Postop Eval I: Summary Notes Anesthesia Complication No 05/08/24 15:35 STOCKROOM [email or web address].[email or web address] Anesthesia Complication Comment: Post-operative progress note Anesthesia: Postop Eval II Evaluation Mental status: Awake Pain Level: 0 nausea: No Vomiting: No
[2024-05-08] MEDS: oxyCODONE 5 MG Tablet PO (18:05)
[2024-05-08] MEDS: Ketorolac 30 MG/ML Syringe IV (20:08)
[2024-05-09] MEDS: Acetaminophen 325 MG Tablet 650 MG PO ×2 (01:52→09:16)
[2024-05-09] MEDS: 0.9% Normal Saline (1000mL) 1,000 ML 100 ML IV (01:52)
[2024-05-09 02:52] VITALS: BP 113/74; PULSE 55; RESP 16; TEMP 36.9; O2SAT 98
[2024-05-09] MEDS: oxyCODONE 5 MG Tablet PO ×2 (02:54→09:16)
--- NOTE | 2024-05-09 07:31 | PCM.DC.SUM ---
Providers Date of Admission: 05/07/24 Primary Care Physician: Michelle Bashir, LITHOGRAPHIC PRESS OPERATOR-C Reason For Visit: INCARCERATED SUPRAUMBILICAL HERNIA Diagnosis Discharge Diagnosis (1) Irreducible epigastric hernia: Status: Acute Code(s): K43.6 - Other and unspecified ventral hernia with obstruction, without gangrene Plan: I have evaluated this patient in conjunction with Dr. Qureshi. Patient is a 23 y/o F who presents to the ED for the second time in 2 days with worsening abdominal pain superior to her umbilicus. She notes a previous umbilical hernia repair with sutures. She notes the lump and pain are right above the repair. Patient's CT scan confirms patient has a supraumbilical epigastric hernia incarcerated with fat. She notes associated nausea and vomiting. Admission has been discussed with the patient, who is agreeable. She is also agreeable to follow the lifting restrictions of nothing greater than 10 pounds for 4 weeks. She states her work is willing to work with her. Patient will be admitted for observation for pain control, IV fluids and surgical intervention. Dr. Qureshi will plan to perform an open simple supraumbilical epigastric hernia repair. Procedure details, risks and benefits were reviewed with the patient. Patient states she recalls the procedure and all it entails from the last time. Patient has had the opportunity to ask and have questions answered. Patient verbally understands and agrees with the plan. Thank you for allowing us to participate in this patient's care. Medications at Discharge Home Medications albuterol sulfate 90 mcg/actuation aerosol inhaler 1 - 2 puff inhalation Q4H PRN PRN Wheezing ##1 04/15/20 acetaminophen 325 mg tablet (Tylenol) 650 mg PO ONCE PRN Pain 02/17/22 ondansetron 4 mg disintegrating tablet 4 mg PO Q8H PRN PRN Nausea #10 tabs 11/20/22 nitrofurantoin monohydrate/macrocrystals 100 mg capsule (Macrobid) 100 mg PO Q12H 3 days #6 caps 05/08/24 oxycodone 5 mg tablet 5 mg PO Q4H PRN PRN Pain Score 4-10 3 days #14 tabs 05/08/24 Hospital Course Operations herniorrhaphy (Epigastric herniorrhaphy) Procedures None Summary of Care Provided Hospital Course: Patient is a 23-year-old female who presented on 05/07/2024 for the second time in 2 days to [facility] ER with complaints of severe abdominal discomfort. This discomfort was well localized to a supraumbilical/epigastric hernia. Imaging and labs were obtained. Imaging showed evidence of improved stranding (from index CT a day earlier) about some fat that was noted within patient's hernia defect. Patient was exquisitely tender on exam in the fatty tissue could not be easily reduced. Thus I recommended urgent repair and patient was admitted for an observational stay that evening. The following day patient went for an uncomplicated open primary repair of a hernia defect. Postoperatively, patient was slated for discharge home, however, discharge had to be held on account of some uncontrolled pain and nausea. Morning of postoperative day 1 patient reports that this pain and nausea are both improved and her exam is reassuring. Postprocedural wound care instructions were reiterated. Patient was dismissed with instructions for outpatient follow-up. Physical Exam Const alert, oriented x3 and no apparent distress Resp normal respiratory effort GI GI Narrative: Surgical clean dry and intact over hernia repair. Patient has tenderness about the site?primarily to the right. No signs of hematoma or fluctuance. There is no erythema. Weight / BMI Weight Weight: 124 lb 12.8 oz Body Mass Index (BMI) 22.1 ABG / Lab / Microbiology Data 05/08/24 06:40 05/08/24 06:40 Microbiology: Microbiology 05/07/24 17:35 Mucosa - Nose SARS-CoV-2, Influenza & RSV (PCR) - Final D/C Instructions Discharge Diet: No restrictions May shower in (days): 1 Call your doctor if your incision/area has: Sudden Increased Bleeding, Increased Pain/ Swelling, Increased Redness, Foul Smelling Discharge and Swelling at the incision site Call your doctor if you observe: Fever of 101 or Higher Cleanse incision/area with: Soap & Water Please Follow Up With: Conor Qureshi MD When: 10 to 14 days postop Meaningful Use Info Meaningful Use Meaningful Use Diagnoses (Choose all that apply): None applicable Ischemic Stroke Statin Dosing Therapy Reference: STATIN DOSE THERAPY REFERENCE: * Patients > 75 years receive moderate or high dose statin therapy. * Patients 75 years or YOUNGER should receive HIGH intensity statin dose unless contraindicated. You will be required to document reason for non-treatment if statin daily dose does not meet guidelines. HIGH DOSE STATIN THERAPY DAILY Atorvastatin > than or = to 40 mg Rosuvastatin > than or = to 20 mg Amlodipine + Atorvastatin > than or = to 2.5/40 mg Ezetimibe + Simvastatin 10/80 mg Simvastatin 80mg Discharge Plan Admission Admit Date/Time: 05/07/24 13:08 Primary Reason for Your Visit: epigastric hernia repair Attending Provider: Conor Qureshi Primary Care Provider: Michelle Bashir NP Instructions Forms: Work / School Excuse Discharge Orders/Prescriptions Prescriptions: New nitrofurantoin monohyd/m-cryst [Macrobid] 100 mg capsule 100 mg PO Q12H 3 Days Qty: 6 0RF Rx Instructions: must administer with a meal/food oxycodone 5 mg Tablet 5 mg PO Q4H PRN PRN (Reason: Pain Score 4-10) 3 Days Qty: 14 0RF Continued acetaminophen [Tylenol] 325 mg tablet 650 mg PO ONCE PRN (Reason: Pain) albuterol sulfate 1 INHALER inhaler 1 - 2 puff inhalation Q4H PRN PRN (Reason: Wheezing) Qty: 1 0RF ondansetron 4 mg tablet,disintegrating 4 mg PO Q8H PRN PRN (Reason: Nausea) Qty: 10 0RF Referrals / Follow Up: Michelle Bashir NP, LITHOGRAPHIC PRESS OPERATOR-C [Primary Care Provider] - Disposition Disposition (needs filled in before D/C Order can be placed): Home, Self Care Charges/Coding Visit Charges Inpatient E&M: 46437 Disch Hosp
[2024-05-09] MEDS: Ibuprofen 600 MG Tablet PO (07:46)
[2024-05-09 08:29] VITALS: O2SAT 94
[2024-05-09 09:00] VITALS: BP 108/67; PULSE 63; RESP 16; TEMP 36.4; O2SAT 100
== END 2024-05-09 13:13 | disposition home or self-care (01) ==
LOC: ED 13:24 → MS3 05-08 09:38
PROVIDERS: Physician Assistant; Admitting Provider Surgery; Emergency Provider Emergency Medicine; PCP Nurse Practitioner Family; Visit Provider Surgery
PROC: (CPT 49592; principal; 2024-05-08 14:40)
DX: K43.6 Other and unspecified ventral hernia with obstruction, without gangrene (principal); K21.9 Gastro-esophageal reflux disease without esophagitis; Z87.891 Personal history of nicotine dependence; N39.0 Urinary tract infection, site not specified; Z79.899 Other long term (current) drug therapy
CPT/HCPCS: 49592; 00752; 36415; 74177; 80048; 80053; 81001; 81025; 83605; 83690; 85025; 87086; 87631; 88302; 94668; 96365; 96366; 96375; 96376; 99221; 99284; 99406; J7030; J7050; J7120; Q9967; A4216; G0378; J2405

== ENCOUNTER 2024-05-10 08:16 | Emergency (ER) | payer OTHER, MEDICAID, SELFPAY ==
[2024-05-10 08:16] VITALS: BP 143/87; PULSE 78; RESP 12; TEMP 36.6; O2SAT 98; BMI 22.3
--- NOTE | 2024-05-10 08:35 | CT_ITS ---
STUDY: CT ABDOMEN AND PELVIS WITH CONTRAST REASON FOR EXAM: Female, 23 years old. Abdominal pain RADIATION DOSAGE (If Supplied By Facility): CTDIvol = ( 9.6 ) mGy, DLP = ( 474.14 ) mGycm TECHNIQUE: IV 100mL Isovue-370 was administered. Transaxial images were obtained from the dome of the diaphragm to the symphysis pubis. Multiplanar coronal and sagittal images were reformatted. The protocol utilizes one or more of the following dose reduction techniques: automated exposure control, adjustment of mA and/or kV according to patient size,and/or use of iterative reconstruction technique. COMPARISON: Prior study dated: 05/07/2024 FINDINGS: The visualized portions of the lung bases demonstrate linear subsegmental atelectatic changes new since previous exam. The visualized portions of the heart are within normal limits. Normal liver. Normal gallbladder and extrahepatic biliary system. Normal spleen. Normal pancreas. Normal bilateral adrenal glands. The stomach is not distended normal in caliber small bowel loops. Fecal retention. No evidence of acute diverticulitis. The appendix appears to be unremarkable. Normal abdominal aorta. No retroperitoneal adenopathy. Normal right kidney. Normal left kidney. Normal urinary bladder. Retroverted uterus. IUD is seen. Trace of free fluid in the pelvis new since previous exam. Uterus is better evaluated by ultrasound. Mild edema in the subcutaneous fat of the anterior abdominal wall about the level of the umbilicus increased since previous exam. Mild fluid and pockets of air new since the previous exam. Normal osseous structures. CT/Abdomen/Pelvis W IV Cont ONLY IMPRESSION: 1. Increased subcutaneous edema with fluid and pockets of air in the anterior abdominal wall about the level of the umbilicus essentially new since previous exam could be postoperative or infectious process. 2. Otherwise no significant change since previous exam. Electronically Signed: Kamaljit James MD at 10:35 EDT ,
--- NOTE | 2024-05-10 08:36 | EDS_ITS ---
HPI History of Present Illness Chief Complaint: Other, Pain/Inj Detail of Chief Complaint: Shaking and abdominal pain Informant: patient Narrative Narrative: Patient presents with abdominal pain and feeling shaky. She tells me 2 days ago she had umbilical hernia surgery performed by Dr. Qureshi at our hospital. She tells me that they found 2 extra hernia send they kept her an extra day in the hospital. Patient complains of shaking and when that happens it makes her belly hurt more. She is having pain with walking. She took some oxycodone this morning and it did not help her pain. She has had some nausea but no vomiting. She denies fevers. She describes some mild pain when urinating to the lower abdomen near the surgical site. [facility] Medical History (Updated 05/10/24 @ 11:[address] Nii Jiménez DO) Smoker Acute bronchitis Irregular heart beat Migraines Heart palpitations Marijuana use Alcohol use Easy bruising Restless legs Back pain Injury of head and neck Syncope Loss of consciousness Heartburn Bronchitis with influenza Shortness of breath on exertion Vapes nicotine containing substance Leg cramps Hypotension Vaginal delivery SROM (spontaneous rupture of membranes) Anxiety (05/06/24) Home Medications ?Medication ?Instructions ?Recorded ?Last Taken ?Type albuterol sulfate 90 mcg/actuation 1 - 2 puff inhalation Q4H PRN PRN 04/15/20 Unknown Rx aerosol inhaler Wheezing ##1 acetaminophen 325 mg tablet 650 mg PO ONCE PRN Pain 02/17/22 Unknown History (Tylenol) ondansetron 4 mg disintegrating 4 mg PO Q8H PRN PRN Nausea #10 tabs 11/20/22 Unknown Rx tablet nitrofurantoin 100 mg PO Q12H 3 days #6 caps 05/08/24 Unknown Rx monohydrate/macrocrystals 100 mg capsule (Macrobid) oxycodone 5 mg tablet 5 mg PO Q4H PRN PRN Pain Score 05/08/24 Unknown Rx 4-10 3 days #14 tabs lorazepam 0.5 mg tablet (Ativan) 0.5 mg PO TID PRN anxiety #10 tabs 05/10/24 Unknown Rx Allergy/AdvReac Type Severity Reaction Status Date / Time No Known Allergies Allergy Verified 05/10/24 08:17 Family History Mother Heart disease Cancer skin Grandmother Hypertension Seizures Thyroid disorder Cancer skin Grandfather Cancer skin Surgical History (Updated 05/10/24 @ 08:25 by Zahida Lee) S/P hernia repair History of umbilical hernia repair [place] teeth removed History of tonsillectomy Social History Smoking Status: Former smoker alcohol intake: never substance use type: does not use ROS ROS ED Review of Systems ROS Unobtainable: other Constitutional Constitutional ED: Reports lethargy; Denies chills, fever(s), sweats or weight loss Eyes Eyes: Denies blurry vision, change in vision or diplopia ENT ENT ED: Denies rhinorrhea or sore throat Cardiovascular Cardiovascular: Denies chest pain, orthopnea or racing heartbeat Respiratory/Chest Respiratory/Chest: Denies cough, dyspnea, dyspnea on exertion, orthopnea or sputum Gastrointestinal Gastrointestinal: Reports abdominal pain; Denies diarrhea, nausea or vomiting Genitourinary Genitourinary ED: Denies dysuria, hematuria or urinary frequency Musculoskeletal Musculoskeletal: Denies arthralgias, back pain, myalgias or neck pain Integumentary Denies abscess, Abrasions or rash Neurologic Neurologic: Reports other Details: Shaking ; Denies headache(s) or weakness Psychiatric Psychiatric: Denies anxiety, depression or suicidal thoughts Endocrine Endocrinology: Denies polydipsia, polyphagia or polyuria Hematologic/Lymphatic Hematologic/Lymphatic: Denies easy bleeding, easy bruising or lymphadenopathy Allergic/Immunologic Allergic/Immunologic ED: Denies mouth swelling, tongue swelling or urticaria EXAM Physical Exam Const Vital Signs: 05/10/24 08:16 05/10/24 08:24 Temperature 97.8 F Temperature Source Oral Pulse Rate 78 Respiratory Rate 12 Respiratory Effort Normal Non-Labored Respiratory Pattern Normal Blood Pressure 143/87 H Blood Pressure Mean 105 Pulse Ox 98 Oxygen Delivery Method Room Air Positive well nourished and well developed General Appearance ED: well developed and NAD HEENT Reports TM's clear and moist mucous membranes normocephalic and atraumatic; Negative for trauma or tenderness Tympanic Membrane ED: Yes TM's clear Eyes PERRL and EOMs intact bilaterally General Eye ED: Negative for pale conjunctiva or scleral icterus Neck no lymphadenopathy, supple and no JVD General: Negative for tenderness Chest Wall inspection of chest normal and palpation of chest normal Chest: Negative for tenderness Resp normal respiratory effort and clear to auscultation bilaterally Effort and Inspection: Negative for respiratory distress or pain with movement Auscultation: Negative for rhonchi, wheezes or diminished lung sounds Cardio regular rate, regular rhythm, S1 normal heart sound, S2 normal heart sound and no murmurs Peripheral Pulses: pulses 2+ throughout GI normal to inspection, nondistended, normoactive bowel sounds, soft to palpation, non-distended and no masses GI Narrative: Patient has noted umbilical incision with some faint erythema around it. There is no drainage noted. She has Steri-Strips in place. She has mild diffuse tenderness. He umbilically. There is no rebound, rigidity, or peritoneal signs. Back/Spine no CVA tenderness and no thoracic nor lumbar tenderness Extremity normal to inspection General Extremety ED: Negative for edema General Extremity: Negative for edema Neuro oriented x3, CN's II-XII intact bilaterally, no sensory deficits noted and gait normal Sensorium / Orientation: awake, alert, oriented to person, oriented to place and oriented to time Motor Exam: strength 5/5 throughout and strength abnormal Psych mental status grossly normal Skin no rashes or lesions noted and no wounds MDM MDM MDM Narrative Medical decision making narrative: Patient presents to the emergency department complaint of shaking and postop abdominal pain. She does have history of some anxiety. She had umbilical hernia surgery [address] Qureshi. In the differential would be anxiety and postop pain versus complication from surgery such as possibly bowel perforation or abscess. IV line established. CBC with differential obtained for white count 9.3 with hemoglobin 11.2 and platelet count of 176. Chemistries unremarkable other than a slightly depressed potassium of 3.1 for which I did give her 40 mEq of potassium chloride p.o. hCG was negative. Urinalysis unremarkable. While in the department I did give her morphine and Zofran and half a milligram of Ativan. Patient had a CT scan of the abdomen pelvis with IV contrast that showed postoperative changes otherwise nothing really significant. After the Ativan she felt much improved and states that she has not been shaking anymore. She states the worst part of all this has been shaking. I will write her a prescription for a few Ativan as needed for anxiety. I did discuss case with general surgeon on-call Dr. Maxwell who is covering for Dr. Qureshi and he agrees with plan going forward I do not feel she needs any other intervention at this time. I was asked to tell patient to use ibuprofen as needed as well. Lab Data Attestation: I reviewed the patient's lab results. Labs: Laboratory Results - last 24 hr 05/10/24 05/10/24 08:43 10:00 WBC 9.3 RBC 3.88 L Hgb 11.2 L Hct 35.5 L MCV 91.5 MCH 28.9 MCHC 31.5 L RDW Std Deviation 41.4 RDW Coeff of Tony 12.5 Plt Count 176 MPV 10.8 Immature Gran % (Auto) 0.400 Neut % (Auto) 70.5 H Lymph % (Auto) 22.2 [place] % (Auto) 5.2 Eos % (Auto) 1.3 Baso % (Auto) 0.4 Absolute Neuts (auto) 6.6 Absolute Lymphs (auto) 2.07 Nucleated RBC % 0 Sodium 141 Potassium 3.1 L Chloride 110 H Carbon Dioxide 24.0 Anion Gap 7 BUN 5 L Creatinine 0.74 Estim Creat Clear Calc 96.97 Est GFR (MDRD) Af Amer 124 Est GFR (MDRD) Non-Af 102 BUN/Creatinine Ratio 6.8 L Glucose 97 Calcium 8.7 Serum , Qual NEGATIVE Urine Color Yellow Urine Clarity Clear Urine pH 7.0 Ur Specific [place] 1.005 Urine Protein Negative Urine Glucose (UA) Normal Urine Ketones Negative Urine Occult Blood Negative Urine Nitrite Negative Urine Bilirubin Negative Urine Urobilinogen Normal Ur Leukocyte Esterase Negative Urine RBC 0 SEEN Urine WBC 0 SEEN Ur Squamous Epith Cells 0 SEEN Urine Bacteria 0 SEEN Urine Mucus 0 SEEN Radiography Diagnostic Testing: Clinical Impression(s) from Imaging Studies Abdomen/Pelvis CT 05/10/24 08:35 IMPRESSION: 1. Increased subcutaneous edema with fluid and pockets of air in the anterior abdominal wall about the level of the umbilicus essentially new since previous exam could be postoperative or infectious process. 2. Otherwise no significant change since previous exam. Electronically Signed: Kamaljit James MD at 10:35 EDT , Discharge Plan Triage Chief Complaint: Other, Pain/Inj ED Provider: Nii Jiménez Dx/Rx/DC Orders Clinical Impression: Post-op pain, Anxiety Instructions: ED Anxiety Reaction, ED Post Op Wound Check, Pain Prescriptions: New lorazepam [Ativan] 0.5 mg tablet 0.5 mg PO TID PRN (Reason: anxiety) Qty: 10 0RF No Action acetaminophen [Tylenol] 325 mg tablet 650 mg PO ONCE PRN (Reason: Pain) albuterol sulfate 1 INHALER inhaler 1 - 2 puff inhalation Q4H PRN PRN (Reason: Wheezing) Qty: 1 0RF ondansetron 4 mg tablet,disintegrating 4 mg PO Q8H PRN PRN (Reason: Nausea) Qty: 10 0RF nitrofurantoin monohyd/m-cryst [Macrobid] 100 mg capsule 100 mg PO Q12H 3 Days Qty: 6 0RF Rx Instructions: must administer with a meal/food oxycodone 5 mg Tablet 5 mg PO Q4H PRN PRN (Reason: Pain Score 4-10) 3 Days Qty: 14 0RF Primary Care Provider: Michelle Bashir NP Referrals: Michelle Bashir CORPORATION LAWYER, CORPORATION LAWYER-C [Primary Care Provider] - Activity Restrictions/Additional Instructions: Keep your follow-up appointment with your surgeon as scheduled Print Language: American Disposition Disposition: Home, Self Care
[2024-05-10] MEDS: 0.9% Normal Saline (1000mL) 1,000 ML 125 ML IV (08:47)
[2024-05-10] MEDS: Morphine 4 MG/ML Syringe IV ×2 (08:48→10:58)
[2024-05-10] MEDS: Ondansetron 4 MG/2 ML Vial IV (08:48)
[2024-05-10] MEDS: LORazepam 2 MG/ML Syringe 0.5 MG IV (08:48)
[2024-05-10 09:02] LABS: Absolute Lymphocyte Count 2.07 X10^3/uL (0.83-4.51); Absolute Neutrophil Count 6.6 X10^3/uL (2.0-7.7); Basophil# 0.04 X10^3/uL; Basophil% 0.4 % (0-1); Eosinophil# 0.12 X10^3/uL; Eosinophils% 1.3 % (0-5); Hematocrit 35.5 % (37-47); Hemoglobin 11.2 g/dL (12.0-15.0); Lymphocyte # 2.07 X10^3/ul (0.83-4.51); Lymphocyte % 22.2 % (19-41); Mean Corp Hgb Conc 31.5 g/dL (32-36); Mean Corpuscular Hgb 28.9 pg (27.0-32.0); Mean Corpuscular Volume 91.5 fL (81-99); Mean Platelet Vol. 10.8 fl (6.2-12.0); Monocyte# 0.48 X10^3/uL; Monocyte% 5.2 % (0-10); NRBC Flagged by Analyzer 0 % (0-5); Neutrophil # 6.56 X10^3/uL (2.7-7.7); Neutrophil % 70.5 % (47-70); Platelet Count 176 K/mm3 (150-450); RBC Distribution Width CV 12.5 % (11.6-14.6); RBC Distribution Width SD 41.4 fl (35.1-43.9); Red Blood Count 3.88 M/mm3 (4.2-5.4); White Blood Count 9.3 K/mm3 (4.4-11.0)
[2024-05-10 09:05] LABS: Internal QC Validated? YES +Cl - CLEAR BKGD; Pregnancy, Serum, hCG Quali. NEGATIVE Negative; Record Kit Lot#, Serum Preg. HCG0000772476
[2024-05-10 09:13] LABS: Anion Gap 7 (5-15); BUN 5 mg/dL (7-18); BUN/Creat Ratio 6.8 RATIO (10-20); Calcium,Total 8.7 mg/dL (8.5-10.1); Chloride 110 mmol/L (98-107); Creatinine, Serum 0.74 mg/dL (0.55-1.02); EST Glomerular Filtration Rate 102 mL/min (>60); Est Glom Filt Rate - Afr Amer 124 mL/min (>60); Estimated Creatinine Clearance 96.97 ml/min; Glucose 97 mg/dL (74-106); Potassium 3.1 mmol/L (3.5-5.1); Sodium Level 141 mmol/L (136-145)
[2024-05-10 10:21] LABS: Bacteria 0 SEEN /hpf (None Seen); Mucous, Urine 0 SEEN /hpf (<or=2+); Red Blood Cells-Urine 0 SEEN /hpf (0-5); Squamous Epithelial Cells - UA 0 SEEN /hpf (5-10); White Blood Cells 0 SEEN /hpf (0-5)
[2024-05-10 10:28] LABS: Color, Urine Yellow (Yellow); Glucose, Dipstick Normal (Normal); Ketone-Dipstick Negative (Negative); Leukocyte Esterase-Dipstick Negative /ul (Negative); Nitrite-Dipstick Negative (Negative); Occult Blood-Urine Negative /ul (Negative); Protein-Dipstick Negative (Negative); Specific Gravity, Urine 1.005 (1.002-1.030); Urine Bilirubin Dipstick Negative (Negative); Urine Clarity Clear (Clear); Urine Urobilinogen Normal (Normal)
[2024-05-10 11:36] VITALS: BP 125/80; PULSE 60; RESP 16; TEMP 36.8; O2SAT 99
[2024-05-10] MEDS: Potassium Chloride Oral Tablet 20 MEQ 40 MEQ PO (11:40)
== END 2024-05-10 11:40 | disposition home or self-care (01) ==
PROVIDERS: Emergency Provider Emergency Medicine; PCP Nurse Practitioner Family; Visit Provider Emergency Medicine
DX: G89.18 Other acute postprocedural pain (principal); F41.9 Anxiety disorder, unspecified; R11.0 Nausea; Z87.891 Personal history of nicotine dependence; Z87.890 Personal history of sex reassignment; R10.30 Lower abdominal pain, unspecified
CPT/HCPCS: 74177; 80048; 81001; 84703; 85025; 96361; 96374; 96375; 96376; 99283; J7030; Q9967; A4216; J2405

== ENCOUNTER 2024-06-01 12:44 | Emergency (ER) | payer OTHER, MEDICAID, SELFPAY ==
[2024-06-01 12:44] VITALS: BP 130/78; PULSE 104; RESP 16; TEMP 36.6; O2SAT 98; BMI 21.2
--- NOTE | 2024-06-01 13:03 | EX.ED.DYSGE1 ---
HPI History of Present Illness Chief Complaint: Wound Check Informant: patient Onset/Context/Timing Onset: Days (2) Context: Gradual Onset Timing: Continuous Quality: Pulling Location: Left periumbilical area Worsened by: Sneezing, coughing Relieved by: Tylenol Narrative Narrative: Patient presents with abdominal pain that has been getting worse over the last 2 days. Patient states she had an umbilical herniorrhaphy done approximately 4 weeks ago. Patient states that she feels a pulling sensation in the left periumbilical area. Patient states she has had some upper respiratory congestion recently and has been doing a lot of sneezing and coughing. Patient states this makes her pain worse. Patient denies any nausea or vomiting. Patient states she had a fever of 100 yesterday. Patient states she took Tylenol for this which helped. Patient denies any nausea or vomiting. Patient denies any urinary complaints. Patient denies any diarrhea. [facility] Medical History Smoker Acute bronchitis Irregular heart beat Migraines Heart palpitations Marijuana use Alcohol use Easy bruising Restless legs Back pain Injury of head and neck Syncope Loss of consciousness Heartburn Bronchitis with influenza Shortness of breath on exertion Vapes nicotine containing substance Leg cramps Hypotension Vaginal delivery SROM (spontaneous rupture of membranes) Anxiety (05/06/24) Home Medications ?Medication ?Instructions ?Recorded ?Last Taken ?Type albuterol sulfate 90 mcg/actuation 1 - 2 puff inhalation Q4H PRN PRN 04/15/20 Unknown Rx aerosol inhaler Wheezing ##1 nitrofurantoin 100 mg PO Q12H 3 days #6 caps 05/08/24 Unknown Rx monohydrate/macrocrystals 100 mg capsule (Macrobid) lorazepam 0.5 mg tablet (Ativan) 0.5 mg PO TID PRN anxiety #10 tabs 05/10/24 Unknown Rx Allergy/AdvReac Type Severity Reaction Status Date / Time No Known Allergies Allergy Verified 05/27/24 13:34 Family History Mother Heart disease Cancer skin Grandmother Hypertension Seizures Thyroid disorder Cancer skin Grandfather Cancer skin Surgical History S/P hernia repair History of umbilical hernia repair [place] teeth removed History of tonsillectomy Social History Smoking Status: Former smoker alcohol intake: never substance use type: does not use ROS ROS ED Constitutional Constitutional ED: Reports fever(s); Denies chills Eyes Eyes: Denies blurry vision or change in vision ENT ENT ED: Reports rhinorrhea and sore throat Cardiovascular Cardiovascular: Denies chest pain or palpitations Respiratory/Chest Respiratory/Chest: Denies cough or dyspnea Gastrointestinal Gastrointestinal: Reports abdominal pain; Denies nausea or vomiting Genitourinary Genitourinary ED: Denies dysuria or hematuria Musculoskeletal Musculoskeletal: Denies back pain or neck pain Integumentary Denies abscess or rash Neurologic Neurologic: Reports headache(s); Denies weakness Allergic/Immunologic Allergic/Immunologic ED: Denies mouth swelling or urticaria EXAM Physical Exam Const Vital Signs: 06/01/24 12:44 06/01/24 13:07 06/01/24 14:58 Temperature 97.9 F 97.9 F Temperature Source Temporal Oral Pulse Rate 104 H 104 H 66 Respiratory Rate 16 16 16 Blood Pressure 130/78 H 130/78 H 121/77 H Blood Pressure Mean 95 95 91 Pulse Ox 98 98 99 Oxygen Delivery Method Room Air Room Air Room Air Positive well nourished and well developed General Appearance ED: well developed and NAD HEENT Reports moist mucous membranes Neck supple and no JVD Resp normal respiratory effort and clear to auscultation bilaterally Cardio regular rate and regular rhythm GI non-distended Palpation: soft and tender LUQ (Near the umbilicus); Negative for guarding or rebound tenderness present Neuro oriented x3, CN's II-XII intact bilaterally and no sensory deficits noted Sensorium / Orientation: alert Motor Exam: strength 5/5 throughout Psych mental status grossly normal Skin Skin Narrative: There is a healing surgical wound over the umbilical area. It is healing well. There is no erythema or warmth. There is no discharge or drainage. There is minimal tenderness. MDM MDM MDM Narrative Medical decision making narrative: Differential diagnosis includes bowel obstruction, perforation, postoperative infection, bleeding, pancreatitis, urinary tract infection, and muscle strain. CBC will be obtained to assess for leukocytosis and anemia. Comprehensive metabolic profile will be obtained to assess for electrolyte abnormality, hepatic function, and renal function. Lipase will be obtained to assess for pancreatitis. Urinalysis will be obtained to assess for urinary tract infection and hematuria. CT scan of the abdomen pelvis will be obtained to assess for bowel obstruction and perforation. Serum hCG will be obtained to assess for . Lab Data Attestation: I reviewed the patient's lab results. Lab results narrative: CBC was reviewed and was within normal limits. Comprehensive metabolic profile was reviewed and was within normal limits. Lipase was reviewed and was normal at 22. Serum hCG was reviewed and was negative. Urinalysis was reviewed. There is no evidence of urinary tract infection or hematuria. Labs: Laboratory Results - last 24 hr 06/01/24 13:27 WBC 5.7 RBC 4.68 Hgb 13.5 Hct 42.7 MCV 91.2 MCH 28.8 MCHC 31.6 L RDW Std Deviation 44.6 H RDW Coeff of Tony 13.4 Plt Count 160 MPV 11.0 Immature Gran % (Auto) 0.400 Neut % (Auto) 62.5 Lymph % (Auto) 28.1 [place] % (Auto) 5.7 Eos % (Auto) 2.8 Baso % (Auto) 0.5 Absolute Neuts (auto) 3.5 Absolute Lymphs (auto) 1.59 Nucleated RBC % 0 Sodium 142 Potassium 3.6 Chloride 110 H Carbon Dioxide 27.0 Anion Gap 5 BUN 11 Creatinine 0.77 Estim Creat Clear Calc 93.19 Est GFR (MDRD) Af Amer 117 Est GFR (MDRD) Non-Af 97 BUN/Creatinine Ratio 14.2 Glucose 86 Calcium 8.6 Total Bilirubin 0.40 AST 11 L ALT 10 L Alkaline Phosphatase 68 Total Protein 6.9 Albumin 3.7 Globulin 3.2 Albumin/Globulin Ratio 1.2 Lipase 22 Serum , Qual NEGATIVE Urine Color Yellow Urine Clarity Sl. Cloudy Urine pH 6.5 Ur Specific [place] 1.020 Urine Protein 15 H Urine Glucose (UA) Normal Urine Ketones Negative Urine Occult Blood Negative Urine Nitrite Negative Urine Bilirubin Negative Urine Urobilinogen 4 H Ur Leukocyte Esterase 25 H Urine RBC 0 SEEN Urine WBC 0-5 SEEN Ur Squamous Epith Cells 0-5 SEEN Urine Bacteria 0 SEEN Urine Mucus 1+ Radiography Diagnostic Testing: Clinical Impression(s) from Imaging Studies Abdomen/Pelvis CT 06/01/24 13:10 IMPRESSION: Umbilical hernia containing fat. Mild inflammatory changes around the umbilicus may suggest cellulitis. Electronically Signed: Noe Love MD at 14:30 EDT , CT scan of the abdomen pelvis was obtained. There is an umbilical hernia that only contained fat. There is some mild inflammatory changes. There is no evidence of obstruction. There is no evidence of any abscess. There is no perforation. There is no free air or free fluid. This was interpreted by the radiologist and was also independently reviewed by myself. Treatment and Re-Evaluation :: Patient was given a dose of morphine here. Patient was advised of her findings. Patient was instructed to continue with Tylenol and ibuprofen as needed for pain. Patient was instructed to follow-up with her primary care physician in 5 to 7 days. Patient was also instructed to follow-up with her surgeon. Patient understood and was agreeable with the plan. All questions were answered. Discharge Plan Triage Chief Complaint: Wound Check ED Provider: Maximo Lew Dx/Rx/DC Orders Clinical Impression: Postoperative abdominal pain, S/P hernia repair Instructions: ED Post Op Wound Check, Pain Prescriptions: No Action albuterol sulfate 1 INHALER inhaler 1 - 2 puff inhalation Q4H PRN PRN (Reason: Wheezing) Qty: 1 0RF nitrofurantoin monohyd/m-cryst [Macrobid] 100 mg capsule 100 mg PO Q12H 3 Days Qty: 6 0RF Rx Instructions: must administer with a meal/food lorazepam [Ativan] 0.5 mg tablet 0.5 mg PO TID PRN (Reason: anxiety) Qty: 10 0RF Primary Care Provider: Michelle Bashir NP Referrals: Conor Qureshi MD [Med Staff - Active Staff] - 5-7 Days Michelle Bashir NP, [employer] [Primary Care Provider] - 5-7 Days Print Language: Guyanese Disposition Disposition: Home, Self Care
[2024-06-01 13:07] VITALS: BP 130/78; PULSE 104; RESP 16; TEMP 36.6; O2SAT 98
--- NOTE | 2024-06-01 13:10 | CT_ITS ---
EXAM: CT ABDOMEN AND PELVIS WITH INTRAVENOUS CONTRAST CLINICAL INDICATION: Abdominal pain umbilical pain TECHNIQUE: Helically acquired images were obtained of the abdomen and pelvis with intravenous contrast. This CT exam was performed using one or more of the following dose reduction techniques: automated exposure control, adjustment of the mA and/or kV according to patient size, and/or use of iterative reconstruction technique. CONTRAST: IV 100mL Isovue-370 RADIATION DOSE: CTDIvol = 6.54 mGy, DLP = 330.05 mGy-cm COMPARISON: 05/10/2024 FINDINGS: LOWER THORAX: Unremarkable. Lung bases are clear. No cardiomegaly. No significant pericardial effusion. ABDOMEN: LIVER: Unremarkable. Homogeneous. No focal mass. GALLBLADDER AND BILE DUCTS: Unremarkable. No calcified gallstones. No gallbladder distention or wall edema. No intra- or extrahepatic biliary ductal dilation. PANCREAS: Unremarkable. No focal cystic or solid mass. SPLEEN: Unremarkable. Normal size without focal cystic or solid mass. ADRENALS: Unremarkable. No nodules. KIDNEYS AND URETERS: Unremarkable. Normal renal size and position. No hydronephrosis. STOMACH AND BOWEL: Unremarkable. No stomach or bowel distention. No focal inflammatory change. PELVIS: APPENDIX: The appendix is visualized and is normal. BLADDER: Unremarkable. REPRODUCTIVE: Uterus is unremarkable. IUD in place. ABDOMEN and PELVIS: INTRAPERITONEAL SPACE: Unremarkable. No ascites or other fluid collection. No free air. BONES/JOINTS: Unremarkable. No suspicious lytic or blastic abnormality. SOFT TISSUES: Umbilical hernia containing fat. Mild inflammatory changes around the umbilicus may suggest cellulitis. VASCULATURE: Unremarkable. Abdominal aorta is non-dilated. LYMPH NODES: Unremarkable. No enlarged lymph nodes. CT/Abdomen/Pelvis W IV Cont ONLY IMPRESSION: Umbilical hernia containing fat. Mild inflammatory changes around the umbilicus may suggest cellulitis. Electronically Signed: Noe Love MD at 14:30 EDT ,
[2024-06-01] MEDS: Morphine 4 MG/ML Syringe IV (13:30)
[2024-06-01 13:31] LABS: Bacteria 0 SEEN /hpf (None Seen); Red Blood Cells-Urine 0 SEEN /hpf (0-5)
[2024-06-01 13:32] LABS: Absolute Lymphocyte Count 1.59 X10^3/uL (0.83-4.51); Absolute Neutrophil Count 3.5 X10^3/uL (2.0-7.7); Basophil# 0.03 X10^3/uL; Basophil% 0.5 % (0-1); Eosinophil# 0.16 X10^3/uL; Eosinophils% 2.8 % (0-5); Hematocrit 42.7 % (37-47); Hemoglobin 13.5 g/dL (12.0-15.0); Lymphocyte # 1.59 X10^3/ul (0.83-4.51); Lymphocyte % 28.1 % (19-41); Mean Corp Hgb Conc 31.6 g/dL (32-36); Mean Corpuscular Hgb 28.8 pg (27.0-32.0); Mean Corpuscular Volume 91.2 fL (81-99); Monocyte# 0.32 X10^3/uL; Monocyte% 5.7 % (0-10); NRBC Flagged by Analyzer 0 % (0-5); Neutrophil # 3.53 X10^3/uL (2.7-7.7); Neutrophil % 62.5 % (47-70); Platelet Count 160 K/mm3 (150-450); RBC Distribution Width CV 13.4 % (11.6-14.6); RBC Distribution Width SD 44.6 fl (35.1-43.9); Red Blood Count 4.68 M/mm3 (4.2-5.4); White Blood Count 5.7 K/mm3 (4.4-11.0)
[2024-06-01 13:33] LABS: Color, Urine Yellow (Yellow); Glucose, Dipstick Normal (Normal); Ketone-Dipstick Negative (Negative); Leukocyte Esterase-Dipstick 25 /ul (Negative); Nitrite-Dipstick Negative (Negative); Occult Blood-Urine Negative /ul (Negative); Protein-Dipstick 15 mg/dl (Negative); Urine Bilirubin Dipstick Negative (Negative); Urine Clarity Sl. Cloudy (Clear); Urine Urobilinogen 4 mg/dl (Normal); Urine pH 6.5 (5.0 - 8.0)
[2024-06-01 13:39] LABS: Mucous, Urine 1+ /hpf (<or=2+); Squamous Epithelial Cells - UA 0-5 SEEN /hpf (5-10); White Blood Cells 0-5 SEEN /hpf (0-5)
[2024-06-01 13:41] LABS: Internal QC Validated? YES +Cl - CLEAR BKGD; Pregnancy, Serum, hCG Quali. NEGATIVE Negative
[2024-06-01 13:48] LABS: ALB/GLOB Ratio 1.2 RATIO (0.9-2.4); AST(SGOT) 11 U/L (15-37); Alanine Aminotransfer ALT/SGPT 10 U/L (13-56); Albumin, Serum 3.7 g/dL (3.2-5.0); Alkaline Phosphatase 68 U/L (45-117); Anion Gap 5 (5-15); BUN 11 mg/dL (7-18); BUN/Creat Ratio 14.2 RATIO (10-20); Calcium,Total 8.6 mg/dL (8.5-10.1); Chloride 110 mmol/L (98-107); Creatinine, Serum 0.77 mg/dL (0.55-1.02); EST Glomerular Filtration Rate 97 mL/min (>60); Est Glom Filt Rate - Afr Amer 117 mL/min (>60); Estimated Creatinine Clearance 93.19 ml/min; Globulin 3.2 g/dL (2.2-4.2); Glucose 86 mg/dL (74-106); Lipase 22 U/L (13-75); Potassium 3.6 mmol/L (3.5-5.1); Protein, Total 6.9 g/dL (6.4-8.2); Sodium Level 142 mmol/L (136-145)
[2024-06-01 14:58] VITALS: BP 121/77; PULSE 66; RESP 16; O2SAT 99
[2024-06-01 15:29] VITALS: BP 121/77; PULSE 66; RESP 16; TEMP 36.6; O2SAT 99
== END 2024-06-01 15:31 | disposition home or self-care (01) ==
PROVIDERS: Emergency Provider Emergency Medicine; PCP Nurse Practitioner Family; Visit Provider Emergency Medicine
DX: Z48.00 Encounter for change or removal of nonsurgical wound dressing (principal); R10.9 Unspecified abdominal pain; Z87.891 Personal history of nicotine dependence; F41.9 Anxiety disorder, unspecified
CPT/HCPCS: 74177; 80053; 81001; 83690; 84703; 85025; 96374; 99284; Q9967; A4216

== ENCOUNTER 2024-12-18 10:30 | Emergency (ER) | payer OTHER, MEDICAID, SELFPAY ==
[2024-12-18 10:32] VITALS: BP 125/89; PULSE 106; RESP 15; TEMP 36.5; O2SAT 97; BMI 22.4
--- NOTE | 2024-12-18 10:50 | ED.VIS.GI ---
HPI HPI - GI History of Present Illness Chief Complaint: Abd Pain Narrative Narrative: 24-year-old female past medical history of double hernia in the umbilical/periumbilical area with repair by Dr. Qureshi in March presents with pulling sensation on the right side of her umbilicus that she has had for the last 2 days. She relates history that the hernia repair was not performed with mesh but only stitches as she states that she and her surgeon wanted to avoid mesh. 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 She now has pulling sensation and the right side of her abdomen. She is concerned that the hernia has returned. However, she denies any fevers or chills associated with this, no nausea or vomiting, no dysuria or hematuria, no problems with bowel meds. PFSH PFSH Medical History Smoker Acute bronchitis Irregular heart beat Migraines Heart palpitations Marijuana use Alcohol use Easy bruising Restless legs Back pain Injury of head and neck Syncope Loss of consciousness Heartburn Bronchitis with influenza Shortness of breath on exertion Vapes nicotine containing substance Leg cramps Hypotension Vaginal delivery SROM (spontaneous rupture of membranes) Anxiety (05/06/24) Home Medications ?Medication ?Instructions ?Recorded ?Last Taken ?Type albuterol sulfate 90 mcg/actuation 1 - 2 puff inhalation Q4H PRN PRN 04/15/20 Unknown Rx aerosol inhaler Wheezing ##1 Allergy/AdvReac Type Severity Reaction Status Date / Time No Known Allergies Allergy Verified 12/18/24 10:34 Family History Mother Heart disease Cancer skin Grandmother Hypertension Seizures Thyroid disorder Cancer skin Grandfather Cancer skin Surgical History S/P hernia repair History of umbilical hernia repair [place] teeth removed History of tonsillectomy Social History Smoking Status: Former smoker alcohol intake: never substance use type: does not use ROS ROS ED ROS Narrative Review of systems positive for right periumbilical pain and area of hernia repair. No fevers or chills associated with it. No nausea or vomiting, no problems with bowel movements, no dysuria or hematuria. No exacerbating or alleviating factors. EXAM Physical Exam Narrative Exam Narrative: Afebrile. Vital signs noted. Nontoxic-appearing. Cardiovascular examination reveals regular rate and rhythm on my examination. Lungs are clear to auscultation bilaterally. The abdomen is soft with mild tenderness to palpation on the right side of the umbilicus. No erythema, no fluctuance. No induration. No guarding or rebound. Neurological examination nonfocal and nonlateralizing. Const Vital Signs: 12/18/24 10:32 12/18/24 13:16 Temperature 97.7 F L 98 F Temperature Source Temporal Pulse Rate 106 H 69 Respiratory Rate 15 17 Blood Pressure 125/89 H 105/72 Blood Pressure Mean 101 83 Pulse Ox 97 100 Oxygen Delivery Method Room Air MDM MDM MDM Narrative Medical decision making narrative: The differential diagnosis includes but not limited to hernia versus abdominal wall muscle tear versus nonspecific abdominal pain. I did review her prior ED visits, and she was seen a few months after her hernia repair, where CT had been performed. There was a hernia containing fat. She states that she had been released from the surgeons care. Comprehensive workup was pursued. I do feel that CT imaging should be obtained although I have low concern for any bowel obstruction as she is not showing any clinical signs of this. CBC will be obtained as well as BMP and serum . I reviewed her laboratory work and Serum test is negative. She has normal white count of 9.2, hemoglobin 14.7, hematocrit 44.4, platelet count 174. BMP is grossly unremarkable except for glucose slightly low at 59. She does not have symptoms with this. She can be discharged to eat something as an outpatient. Of more importance to her is the CT read which shows no evidence of an acute process, no hernia. I discussed the patient with Dr. Conor Qureshi with surgery as well who reviewed the CT and there is no evidence of an acute hernia. It was felt that she can follow-up with him as an outpatient. She can take [id number] medications for analgesia. Return instructions to the emergency department were reviewed. Disposition is discharged home in stable condition. History & Record Review Discussion w/independent historian: Patient Lab Data Attestation: I reviewed the patient's lab results. Labs: Laboratory Results - last 24 hr 12/18/24 11:11 WBC 9.2 RBC 4.78 Hgb 14.7 Hct 44.4 MCV 92.9 MCH 30.8 MCHC 33.1 RDW Std Deviation 45.5 H RDW Coeff of Tony 13.3 Plt Count 174 MPV 11.2 Immature Gran % (Auto) 0.300 Neut % (Auto) 65.6 Lymph % (Auto) 25.5 [place] % (Auto) 5.5 Eos % (Auto) 2.7 Baso % (Auto) 0.4 Absolute Neuts (auto) 6.0 Absolute Lymphs (auto) 2.34 Nucleated RBC % 0 Sodium 138 Potassium 3.9 Chloride 104 Carbon Dioxide 25.6 Anion Gap 9 BUN 11 Creatinine 0.79 Estim Creat Clear Calc 90.05 Est GFR (MDRD) Non-Af 106 BUN/Creatinine Ratio 14.2 Glucose 59 L Calcium 9.0 Serum , Qual NEGATIVE Radiography Diagnostic Testing: Clinical Impression(s) from Imaging Studies Abdomen/Pelvis CT 12/18/24 11:55 IMPRESSION: There is an IUD in position. No acute abnormality is identified in the abdomen or pelvis. Reading Location: [facility] Management Discussion w/another healthcare provider: Acupressure Therapist (Dr. Qureshi, general surgery) Discharge Plan Triage Chief Complaint: Abd Pain ED Provider: Linden Wallace Dx/Rx/DC Orders Clinical Impression: Abdominal wall pain, History of hernia repair Instructions: ED Abdominal Pain Unkn Cause Fem Prescriptions: No Action albuterol sulfate 1 INHALER inhaler 1 - 2 puff inhalation Q4H PRN PRN (Reason: Wheezing) Qty: 1 0RF Primary Care Provider: Michelle Bashir [employer] Referrals: Conor Qureshi MD [Med Staff - Active Staff] - 1 Week Michelle Bashir [employer], [employer] [Primary Care Provider] - Activity Restrictions/Additional Instructions: Follow-up with Dr. Qureshi with general surgery within the next week. Return to the emergency department with fever, increased pain, new or worsening symptoms. [id number] medications like Tylenol or ibuprofen as needed for pain. Print Language: Somali Disposition Disposition: Home, Self Care Discharge Date/Time: 12/18/24 13:17
[2024-12-18 11:25] LABS: Absolute Lymphocyte Count 2.34 X10^3/uL (0.83-4.51); Basophil# 0.04 X10^3/uL; Basophil% 0.4 % (0-1); Eosinophil# 0.25 X10^3/uL; Eosinophils% 2.7 % (0-5); Hematocrit 44.4 % (37-47); Hemoglobin 14.7 g/dL (12.0-15.0); Lymphocyte # 2.34 X10^3/ul (0.83-4.51); Lymphocyte % 25.5 % (19-41); Mean Corp Hgb Conc 33.1 g/dL (32-36); Mean Corpuscular Hgb 30.8 pg (27.0-32.0); Mean Corpuscular Volume 92.9 fL (81-99); Mean Platelet Vol. 11.2 fl (6.2-12.0); Monocyte% 5.5 % (0-10); NRBC Flagged by Analyzer 0 % (0-5); Neutrophil # 6.01 X10^3/uL (2.7-7.7); Neutrophil % 65.6 % (47-70); Platelet Count 174 K/mm3 (150-450); RBC Distribution Width CV 13.3 % (11.6-14.6); RBC Distribution Width SD 45.5 fl (35.1-43.9); Red Blood Count 4.78 M/mm3 (4.2-5.4); White Blood Count 9.2 K/mm3 (4.4-11.0)
[2024-12-18 11:37] LABS: Internal QC Validated? YES +Cl - CLEAR BKGD; Pregnancy, Serum, hCG Quali. NEGATIVE Negative
[2024-12-18 11:44] LABS: Anion Gap 9 (5-15); BUN 11 mg/dL (4-19); BUN/Creat Ratio 14.2 RATIO (10-20); Carbon Dioxide 25.6 mmol/L (21.0-32.0); Chloride 104 mmol/L (98-108); Creatinine, Serum 0.79 mg/dL (0.70-1.20); EST Glomerular Filtration Rate 106 (>60); Estimated Creatinine Clearance 90.05 ml/min (50-250); Glucose 59 mg/dL (70-99); Potassium 3.9 mmol/L (3.3-5.1); Sodium Level 138 mmol/L (133-145)
--- NOTE | 2024-12-18 11:55 | CT_ITS ---
PROCEDURE: ABDOMEN/PELVIS W IV CONT ONLY 12/18/2024 REASON FOR EXAM: PERIUMBILICAL PAIN HISTORY OF HERNIA TECHNIQUE: Abdomen and pelvis CT with intravenous contrast. Coronal and Sagittal reconstruction series were provided. PATIENT PREPARATION: Per protocol ORAL CONTRAST TYPE: None. CONTRAST: 100 cc Isovue-300 One or more dose reduction techniques were used (e.g., Automated exposure control, adjustment of the mA and/or kV according to patient size, use of iterative reconstruction technique. RADIATION DOSE SUMMARY: DLP: 295.0 mGycm COMPARISON: June 01, 2024 FINDINGS: Lung bases: Clear Liver: Unremarkable Gallbladder: Contracted Spleen: Unremarkable Pancreas: Unremarkable Adrenals: Unremarkable Kidneys: Unremarkable Bladder: Unremarkable Reproductive Organs: An IUD is noted in the mid uterus. Bowel: Appendix: Within normal limits, coronal image 38/101. Lymph nodes: There is no visible pathologic adenopathy by size criteria. Vasculature: Unremarkable Peritoneum / Retroperitoneum: There is no free air or free fluid. There is no significant hernia identified. Bones: There is no acute bony abnormality. CT/Abdomen/Pelvis W IV Cont ONLY IMPRESSION: There is an IUD in position. No acute abnormality is identified in the abdomen or pelvis. Reading Location: [facility]
[2024-12-18 13:16] VITALS: BP 105/72; PULSE 69; RESP 17; TEMP 36.6; O2SAT 100
== END 2024-12-18 13:17 | disposition home or self-care (01) ==
PROVIDERS: Emergency Provider Emergency Medicine; PCP Nurse Practitioner Family; Visit Provider Emergency Medicine
DX: R10.9 Unspecified abdominal pain (principal); Z87.891 Personal history of nicotine dependence; Z98.890 Other specified postprocedural states
CPT/HCPCS: 74177; 80048; 84703; 85025; 99283; Q9967; A4216

== ENCOUNTER 2025-01-28 11:10 | Emergency (ER) | payer OTHER, MEDICAID, SELFPAY ==
[2025-01-28 11:11] VITALS: BP 147/93; PULSE 88; RESP 16; TEMP 36.6; O2SAT 99; BMI 20.5
[2025-01-28 13:12] VITALS: BP 141/92; PULSE 84; RESP 18; O2SAT 100
--- NOTE | 2025-01-28 14:00 | RAD_ITS ---
PROCEDURE: ACUTE ABDOMEN INC CHEST 01/28/2025 REASON FOR EXAM: Diffuse abdominal pain. TECHNIQUE: Single view chest with supine and upright views of the abdomen. COMPARISON: None FINDINGS: Hardware: None Heart: The heart size is normal. Lungs: Hyperinflation. The lungs are clear. Bowel gas: Moderate constipation identified with fecal material distributed throughout the colon. No evidence of bowel obstruction. Free air: No free air. Calcifications: No suspicious calcifications. Bones: The bones are unremarkable. Other: IUD is seen within the pelvis. RAD/Acute Abdomen Inc Chest IMPRESSION: Moderate amount of fecal material seen in the colon. IUD is seen within the pelvis. Reading Location: [facility]
--- NOTE | 2025-01-28 14:06 | EDS_ITS ---
HPI History of Present Illness Chief Complaint: Abd Pain Detail of Chief Complaint: Predominantly central abdominal pain that is worse with stretching and wors Informant: patient Onset/Context/Timing Onset: Month(s) (1 month) Context: Gradual Onset Timing: Intermittent and Waxes and wanes Quality: Fullness, stretching discomfort supraumbilical Location: Supraumbilical Current Severity: Mild Maximum Severity: Moderate Worsened by: Foods in general when she feels bloated and when she stretches. Relieved by: Nothing Associated Symptoms Associated Symptoms: Nausea. Patient's last bowel movement was normal. Narrative Narrative: Patient is a 24-year-old female. She had surgery by Dr. Qureshi for hernia. Office follow-up visit was reviewed. This visit was May 2024. Patient had surgery for epigastric reducible hernia April 2024. There was fat contained in the hernia. Patient stated that she had triple hernia repair. Review of records indicates surgery occurred in April. She had 2 visits for postoperative pain May 10, 2024 and June 01, 2024 and reports were authored by Dr. Nii Jiménez and Dr. Maximo Manning. She was recently seen for abdominal pain by Dr. Marilyn Simpson on December 18. The CAT scan revealed an IUD to be in position. Patient states her last menses was not normal. The IUD was placed a couple of months ago. There was no abnormal findings noted by radiologist and by diet. Because review of the scan. Patient now presents with supraumbilical midline and pain that is worse with eating anything and when she stretches. She has had no nausea, vomiting or diarrhea. She is not constipated. She denies dysuria, frequency, urgency or hematuria. She has no respiratory symptoms. There is no history of trauma. She has been released to return to work with no restrictions. Prior similar symptoms: Yes Recent Illness/Hospitalization: No PFSH PFSH Medical History IUD (intrauterine device) in place Smoker Acute bronchitis Irregular heart beat Migraines Heart palpitations Marijuana use Alcohol use Easy bruising Restless legs Back pain Injury of head and neck Syncope Loss of consciousness Heartburn Bronchitis with influenza Shortness of breath on exertion Vapes nicotine containing substance Leg cramps Hypotension Vaginal delivery SROM (spontaneous rupture of membranes) Anxiety (05/06/24) Home Medications ?Medication ?Instructions ?Recorded ?Last Taken ?Type albuterol sulfate 90 mcg/actuation 1 - 2 puff inhalati on Q4H PRN PRN 04/15/20 Unknown Rx aerosol inhaler Wheezing ##1 dicyclomine 10 mg capsule 20 mg (2 x 10 mg) PO TIDAC # 20 01/28/25 Unknown Rx CAPSULES Allergy/AdvReac Type Severity Reaction Status Date / Time No Known Allergies Allergy Verified 12/18/24 10:34 Family History Mother Heart disease Cancer skin Grandmother Hypertension Seizures Thyroid disorder Cancer skin Grandfather Cancer skin Surgical History S/P hernia repair History of umbilical hernia repair [place] teeth removed History of tonsillectomy Social History Smoking Status: Former smoker alcohol intake: never substance use type: does not use ROS ROS ED Constitutional Constitutional ED: Denies chills, fever(s), subjective, sweats or weight loss Cardiovascular Cardiovascular: Denies chest pain or palpitations Respiratory/Chest Respiratory/Chest: Denies cough, dyspnea or dyspnea on exertion Gastrointestinal Gastrointestinal: Reports abdominal pain and nausea; Denies constipation, diarrhea, melena or vomiting Genitourinary Genitourinary ED: Denies dysuria, hematuria or urinary frequency Musculoskeletal Musculoskeletal: Denies arthralgias, back pain, myalgias or neck pain Integumentary Denies rash Neurologic Neurologic: Denies weakness Hematologic/Lymphatic Hematologic/Lymphatic: Reports systems reviewed and no addt'l complaints, except as documented EXAM Physical Exam Const Vital Signs: 01/28/25 11:11 01/28/25 13:12 01/28/25 15:00 Temperature 97.8 F Temperature Source Oral Pulse Rate 88 84 84 Respiratory Rate 16 18 16 Blood Pressure 147/93 H 141/92 H Blood Pressure Mean 111 108 Pulse Ox 99 100 100 Oxygen Delivery Method Room Air Room Air Room Air Positive well nourished and well developed Constitutional Narrative: Patient appears in no distress at the end of the room. Blood pressure is elevated. General Appearance ED: well developed and NAD; Negative for pallor HEENT Reports moist mucous membranes HEENT Narrative: Head is atraumatic normocephalic. Ears normal. Nares patent. Eyes PERRL and EOMs intact bilaterally General Eye ED: Negative for pale conjunctiva or scleral icterus Neck no lymphadenopathy, supple and no JVD Chest Wall inspection of chest normal and palpation of chest normal Resp normal respiratory effort and clear to auscultation bilaterally Cardio regular rate, regular rhythm, S1 normal heart sound, S2 normal heart sound and no murmurs GI no masses; Negative for normal to inspection, nondistended, normoactive bowel sounds, non-tender, non-distended or hepatosplenomegaly GI Narrative: Patient is tympanitic to percussion. She complained of discomfort with percussion however there was no guarding with deep palpation. She had generalized pain. Patient had a prior piercing of her umbilicus which is well- healed with no evidence of infection. There is no evidence of an umbilical hernia. Inspection: abdominal distention Auscultation: hypoactive bowel sounds Palpation: soft and tender other (Throughout); Negative for guarding, splenomegaly, mass or rebound tenderness present Back/Spine no CVA tenderness Extremity normal to inspection Neuro oriented x3 and CN's II-XII intact bilaterally Sensorium / Orientation: alert Psych Psych Narrative: Affect is flat. Skin no rashes or lesions noted, no wounds and skin turgor normal General Skin Exam: elasticity normal; Negative for jaundice or pallor MDM MDM MDM Narrative Medical decision making narrative: Patient had postoperative pain and was recently seen for abdominal pain. CAT scan revealed no abnormality. Her exam in my opinion is not concerning. Because she is tympanitic will obtain abdominal x-rays to determine if she has paucity of gas or stool. Also will obtain CBC to assess white count differential and BMP to assess renal function, electrolytes and anion gap. Since she had irregular periods serum test was obtained. Would not expect her to have umbilical or supraumbilical pain from early . Patient raise concern regarding IUD. In light of the fact that she had a scan approximately 1 month ago that revealed proper position of the IUD in my opinion no further investigation is warranted or indicated. Prior inpatient records, outpatient records and ED visits are summarized in the HPI narrative. History & Record Review Additional record(s) reviewed:: Prior inpatient record, Prior outpatient record and Prior ED visit Lab Data Attestation: I reviewed the patient's lab results. Lab results narrative: CBC is normal. UA is unremarkable. BMP is pending and test is negative. Time of this addendum is 1507. Labs: Laboratory Results - last 24 hr 01/28/25 01/28/25 13:50 13:52 WBC 8.5 RBC 4.43 Hgb 13.6 Hct 40.1 MCV 90.5 MCH 30.7 MCHC 33.9 RDW Std Deviation 43.3 RDW Coeff of Tony 13.1 Plt Count 214 MPV 10.5 Immature Gran % (Auto) 0.400 Neut % (Auto) 68.3 Lymph % (Auto) 23.7 [place] % (Auto) 4.9 Eos % (Auto) 2.2 Baso % (Auto) 0.5 Absolute Neuts (auto) 5.8 Absolute Lymphs (auto) 2.02 Nucleated RBC % 0 Sodium 139 Potassium 3.8 Chloride 105 Carbon Dioxide 22.4 Anion Gap 12 BUN 10 Creatinine 0.72 Estim Creat Clear Calc 101.95 Est GFR (MDRD) Non-Af 119 BUN/Creatinine Ratio 13.7 Glucose 88 Calcium 8.9 Urine Color Straw Cancelled Urine Clarity Clear Cancelled Urine pH 8.0 Cancelled Ur Specific [place] 1.015 Cancelled U Specif Grav (Refrac) Cancelled Urine Protein 15 H Cancelled Urine Glucose (UA) Normal Cancelled Urine Ketones Negative Cancelled Urine Occult Blood Negative Cancelled Urine Nitrite Negative Cancelled Urine Bilirubin Negative Cancelled Urine Urobilinogen 1 H Cancelled Ur Leukocyte Esterase Negative Cancelled Urine RBC 0-5 SEEN Cancelled Urine WBC 0-5 SEEN Cancelled Ur Squamous Epith Cells 5-10 SEEN Cancelled Ur Transition Epith Cell Cancelled Ur Renal Epithelial Cell Cancelled Calcium Oxalate Crystal Cancelled Uric Acid Crystals Cancelled Triple Phos Crystals Cancelled Other Crystals Cancelled Amorphous Sediment Cancelled Urine Bacteria 0 SEEN Cancelled Hyaline Casts Cancelled Fine Granular Casts Cancelled Coarse Granular Casts Cancelled Waxy Casts Cancelled RBC Casts Cancelled WBC Casts Cancelled Urine Mucus 0 SEEN Cancelled Urine Trichomonas Cancelled Urine Yeast Cancelled Urine Test Negative Radiography Chest X-Ray - ED: Read by ED Physician (Three-view abdominal series reveals no abnormality of the chest portion. The cardiac silhouette and size normal. Lung parenchyma normal. [place] is normal. Osseous trucks there is no acute process. Abdominal portion reveals an IUD in proper position. There is no severe gas pattern. There is a m) Diagnostic Testing: Clinical Impression(s) from Imaging Studies Acute Abdomen Series 01/28/25 14:00 IMPRESSION: Moderate amount of fecal material seen in the colon. IUD is seen within the pelvis. Reading Location: [place] [id number] Treatment and Re-Evaluation :: patient was informed of her laboratory results x-ray results. She was struck to follow-up with her doctor. She was prescribed dicyclomine. Comments:: Since ago and evidence of endorgan dysfunction patient has no history of hypertension this will need to be reassessed in 1 to 2 weeks. Discharge Plan Triage Chief Complaint: Abd Pain ED Provider: Blanco Alfaro Dx/Rx/DC Orders Clinical Impression: Obstipation, Elevated blood-pressure reading without diagnosis of hypertension, IUD (intrauterine device) in place Instructions: ED Constipation (Adult), ED Hypertension, To Be Confirmed Prescriptions: New dicyclomine 10 mg capsule 20 mg PO TIDAC Qty: 20 0RF No Action albuterol sulfate 1 INHALER inhaler 1 - 2 puff inhalation Q4H PRN PRN (Reason: Wheezing) Qty: 1 0RF Primary Care Provider: Michelle Bahsir NP Referrals: Familia Starks DO [Med Staff - Active Staff] - 10-14 Days if not better Michelle Bashir NP, [employer] PROJECT MANAGER-C [Primary Care Provider] - 1 Week if not improving Activity Restrictions/Additional Instructions: 1. The radiologist read that you have increased amount of stool in your colon. Recommend MiraLAX or Metamucil 2-3 times a day for the next week. 2. Take medication as prescribed 3. Follow-up with your provider Michelle for blood pressure recheck since your blood pressure is elevated. Print Language: Libyan Disposition Disposition: Home, Self Care
[2025-01-28 14:12] LABS: Bacteria 0 SEEN /hpf (None Seen); Mucous, Urine 0 SEEN /hpf (<or=2+)
[2025-01-28 14:17] LABS: Absolute Lymphocyte Count 2.02 X10^3/uL (0.83-4.51); Absolute Neutrophil Count 5.8 X10^3/uL (2.0-7.7); Basophil# 0.04 X10^3/uL; Basophil% 0.5 % (0-1); Eosinophil# 0.19 X10^3/uL; Eosinophils% 2.2 % (0-5); Hematocrit 40.1 % (37-47); Hemoglobin 13.6 g/dL (12.0-15.0); Lymphocyte # 2.02 X10^3/ul (0.83-4.51); Lymphocyte % 23.7 % (19-41); Mean Corp Hgb Conc 33.9 g/dL (32-36); Mean Corpuscular Hgb 30.7 pg (27.0-32.0); Mean Corpuscular Volume 90.5 fL (81-99); Mean Platelet Vol. 10.5 fl (6.2-12.0); Monocyte# 0.42 X10^3/uL; Monocyte% 4.9 % (0-10); NRBC Flagged by Analyzer 0 % (0-5); Neutrophil # 5.84 X10^3/uL (2.7-7.7); Neutrophil % 68.3 % (47-70); Platelet Count 214 K/mm3 (150-450); RBC Distribution Width CV 13.1 % (11.6-14.6); RBC Distribution Width SD 43.3 fl (35.1-43.9); Red Blood Count 4.43 M/mm3 (4.2-5.4); White Blood Count 8.5 K/mm3 (4.4-11.0)
[2025-01-28 14:28] LABS: Internal QC Validated? YES +Cl - CLEAR BKGD
[2025-01-28 14:29] LABS: Pregnancy, Urine Negative Negative; Record Kit Lot#,Urine Preg 947241
[2025-01-28 14:33] LABS: Color, Urine Straw (Yellow); Glucose, Dipstick Normal (Normal); Ketone-Dipstick Negative (Negative); Leukocyte Esterase-Dipstick Negative /ul (Negative); Nitrite-Dipstick Negative (Negative); Occult Blood-Urine Negative /ul (Negative); Protein-Dipstick 15 mg/dl (Negative); Specific Gravity, Urine 1.015 (1.002-1.030); Urine Bilirubin Dipstick Negative (Negative); Urine Clarity Clear (Clear); Urine Urobilinogen 1 mg/dl (Normal)
[2025-01-28 14:44] LABS: Squamous Epithelial Cells - UA 5-10 SEEN /hpf (5-10)
[2025-01-28 14:45] LABS: Red Blood Cells-Urine 0-5 SEEN /hpf (0-5); White Blood Cells 0-5 SEEN /hpf (0-5)
[2025-01-28 15:00] VITALS: PULSE 84; RESP 16; O2SAT 100
[2025-01-28 15:23] LABS: Anion Gap 12 (5-15); BUN 10 mg/dL (4-19); BUN/Creat Ratio 13.7 RATIO (10-20); Calcium,Total 8.9 mg/dL (7.6-11.0); Carbon Dioxide 22.4 mmol/L (21.0-32.0); Chloride 105 mmol/L (98-108); Creatinine, Serum 0.72 mg/dL (0.70-1.20); EST Glomerular Filtration Rate 119 (>60); Estimated Creatinine Clearance 101.95 ml/min (50-250); Glucose 88 mg/dL (70-99); Potassium 3.8 mmol/L (3.3-5.1); Sodium Level 139 mmol/L (133-145)
[2025-01-28 15:47] VITALS: BP 135/70; PULSE 80; RESP 18; TEMP 36.6; O2SAT 100
== END 2025-01-28 15:48 | disposition home or self-care (01) ==
PROVIDERS: Emergency Provider Emergency Medicine; PCP Nurse Practitioner Family; Visit Provider Emergency Medicine
DX: K59.00 Constipation, unspecified (principal); R03.0 Elevated blood-pressure reading, without diagnosis of hypertension; Z97.5 Presence of (intrauterine) contraceptive device; Z87.891 Personal history of nicotine dependence
CPT/HCPCS: 74022; 80048; 81001; 81025; 85025; 99283; A4216

== ENCOUNTER 2025-02-04 11:14 | Emergency (ER) | payer OTHER, MEDICAID, SELFPAY ==
[2025-02-04 11:15] VITALS: BP 131/80; PULSE 104; RESP 16; TEMP 36.1; O2SAT 98; BMI 21.0
--- NOTE | 2025-02-04 11:26 | EX.ED.DYSGE1 ---
HPI History of Present Illness Chief Complaint: Syncope Informant: patient Onset/Context/Timing Onset: Days Context: Sudden Onset Timing: Intermittent Quality: Lightheaded Location: Generalized Worsened by: Nothing Relieved by: Laying down Narrative Narrative: Patient presents with syncopal episode that occurred this morning. Patient states she has been getting lightheaded over the past few days. Patient states this comes and goes. Patient states she feels lightheaded. Patient states if she is able to lay down it gets better. Patient states she noted some tinnitus today. Patient also states she broke into a sweat prior to passing out. Patient denies any palpitations. Patient admits to slight chest pain. Patient also admits to recent upper respiratory infection with some rhinorrhea. Patient denies taking any [id number] decongestants. Patient admits to some nausea but denies any vomiting. Patient admits to a mild headache. [facility] Medical History IUD (intrauterine device) in place Smoker Acute bronchitis Irregular heart beat Migraines Heart palpitations Marijuana use Alcohol use Easy bruising Restless legs Back pain Injury of head and neck Syncope Loss of consciousness Heartburn Bronchitis with influenza Shortness of breath on exertion Vapes nicotine containing substance Leg cramps Hypotension Vaginal delivery SROM (spontaneous rupture of membranes) Anxiety (05/06/24) Home Medications ?Medication ?Instructions ?Recorded ?Last Taken ?Type albuterol sulfate 90 mcg/actuation 1 - 2 puff inhalation Q4H PRN PRN 04/15/20 Unknown Rx aerosol inhaler Wheezing ##1 dicyclomine 10 mg capsule 20 mg (2 x 10 mg) PO TIDAC #20 01/28/25 Unknown Rx CAPSULES Allergy/AdvReac Type Severity Reaction Status Date / Time No Known Allergies Allergy Verified 02/04/25 11:15 Family History Mother Heart disease Cancer skin Grandmother Hypertension Seizures Thyroid disorder Cancer skin Grandfather Cancer skin Surgical History S/P hernia repair History of umbilical hernia repair [place] teeth removed History of tonsillectomy Social History Smoking Status: Current every day smoker tobacco type: e-cigarettes alcohol intake: never substance use type: does not use ROS ROS ED Constitutional Constitutional ED: Denies chills or fever(s) Eyes Eyes: Denies blurry vision or change in vision ENT ENT ED: Reports rhinorrhea; Denies sore throat Cardiovascular Cardiovascular: Reports chest pain; Denies palpitations Respiratory/Chest Respiratory/Chest: Denies cough or dyspnea Gastrointestinal Gastrointestinal: Reports nausea; Denies vomiting Genitourinary Genitourinary ED: Denies dysuria or hematuria Musculoskeletal Musculoskeletal: Denies back pain or neck pain Integumentary Denies abscess or rash Neurologic Neurologic: Reports headache(s); Denies weakness Allergic/Immunologic Allergic/Immunologic ED: Denies mouth swelling or urticaria EXAM Physical Exam Const Vital Signs: 02/04/25 11:15 02/04/25 11:15 02/04/25 11:48 Temperature 96.9 F L Temperature Source Temporal Pulse Rate 104 H Pulse Rate [Lying] 71 Pulse Rate [Sitting (for 1 minute prior to obtaining)] 83 Pulse Rate [Standing (for 1 minute prior to obtaining)] 93 Respiratory Rate 16 Respiratory Effort Normal Non-Labored Respiratory Pattern Normal Blood Pressure 131/80 H Blood Pressure [Lying] 120/81 H Blood Pressure [Sitting (for 1 minute prior to obtaining)] 126/75 H Blood Pressure [Standing (for 1 minute prior to obtaining)] 112/87 H Blood Pressure Mean 97 Blood Pressure Mean [Lying] 94 Blood Pressure Mean [Sitting (for 1 minute prior to obtaining)] 92 Blood Pressure Mean [Standing (for 1 minute prior to obtaining)] 95 Pulse Ox 98 Oxygen Delivery Method Room Air 02/04/25 13:15 02/04/25 15:00 02/04/25 16:41 Temperature 98 F Temperature Source Pulse Rate 71 54 L 61 Pulse Rate [Lying] Pulse Rate [Sitting (for 1 minute prior to obtaining)] Pulse Rate [Standing (for 1 minute prior to obtaining)] Respiratory Rate 16 21 H 18 Respiratory Effort Respiratory Pattern Blood Pressure 104/78 109/70 105/74 Blood Pressure [Lying] Blood Pressure [Sitting (for 1 minute prior to obtaining)] Blood Pressure [Standing (for 1 minute prior to obtaining)] Blood Pressure Mean 86 83 84 Blood Pressure Mean [Lying] Blood Pressure Mean [Sitting (for 1 minute prior to obtaining)] Blood Pressure Mean [Standing (for 1 minute prior to obtaining)] Pulse Ox 100 100 100 Oxygen Delivery Method Room Air Room Air Positive well nourished and well developed General Appearance ED: well developed and NAD HEENT Reports moist mucous membranes Neck supple and no JVD Resp normal respiratory effort and clear to auscultation bilaterally Cardio regular rate and regular rhythm GI non-tender and non-distended Palpation: soft Extremity normal to inspection General Extremety ED: Negative for edema or tenderness General Extremity: Negative for edema Neuro oriented x3, CN's II-XII intact bilaterally and no sensory deficits noted Sensorium / Orientation: alert Motor Exam: strength 5/5 throughout Psych mental status grossly normal MDM MDM MDM Narrative Medical decision making narrative: Differential diagnosis includes dehydration, electrolyte abnormality, vasovagal syncope, ectopic , urinary tract infection, cardiac dysrhythmia, cardiac ischemia, and anxiety. EKG will be obtained to assess for cardiac dysrhythmia and cardiac ischemia. Chest x-ray will be obtained to assess for pneumonia and bronchitis. CBC will be obtained to assess for leukocytosis and anemia. Basic metabolic profile will be obtained to assess for electrolyte abnormality renal function. Serum hCG will be obtained to assess for . Orthostatic vital signs will be obtained to assess for hypovolemia and dehydration. History & Record Review Additional record(s) reviewed:: Prior ED visit and Prior labs Lab Data Attestation: I reviewed the patient's lab results. Lab results narrative: That she was reviewed and was within normal limits. Basic metabolic profile was reviewed and was within normal limits. Initial high-sensitivity troponin was reviewed and was less than 6. 2-hour repeat high-sensitivity troponin was reviewed and was less than 6. Serum hCG was reviewed and was negative. Urinalysis was reviewed and there is no evidence of urinary tract infection or hematuria. Labs: Laboratory Results - last 24 hr 02/04/25 02/04/25 02/04/25 11:42 13:58 15:06 WBC 8.8 RBC 4.45 Hgb 13.9 Hct 41.4 MCV 93.0 MCH 31.2 MCHC 33.6 RDW Std Deviation 45.1 H RDW Coeff of Tony 13.3 Plt Count 197 MPV 11.5 Immature Gran % (Auto) 0.200 Neut % (Auto) 71.4 H Lymph % (Auto) 17.1 L [place] % (Auto) 4.3 Eos % (Auto) 6.5 H Baso % (Auto) 0.5 Absolute Neuts (auto) 6.3 Absolute Lymphs (auto) 1.50 Nucleated RBC % 0 Sodium 139 Potassium 4.5 Chloride 105 Carbon Dioxide 24.7 Anion Gap 9 BUN 8 Creatinine 0.76 Estim Creat Clear Calc 97.71 Est GFR (MDRD) Non-Af 112 BUN/Creatinine Ratio 10.3 Glucose 99 Calcium 8.7 Troponin T High Sens < 6 Troponin T Hi Sens 2 Hr < 6 Serum , Qual NEGATIVE Urine Color Yellow Urine Clarity Sl. Cloudy Urine pH 8.0 Ur Specific [place] 1.010 Urine Protein Negative Urine Glucose (UA) Normal Urine Ketones Negative Urine Occult Blood Negative Urine Nitrite Negative Urine Bilirubin Negative Urine Urobilinogen Normal Ur Leukocyte Esterase 25 H Urine RBC 0 SEEN Urine WBC 0-5 SEEN Ur Squamous Epith Cells 0-5 SEEN Urine Bacteria 2+ Urine Mucus 0 SEEN Radiography Chest X-Ray - ED: 2 View, Read by ED Physician, Read by Radiologist and No Acute Disease Diagnostic Testing: Clinical Impression(s) from Imaging Studies Chest X-Ray 02/04/25 11:48 IMPRESSION: NO ACUTE FINDINGS. Reading Location: [facility] PA and lateral chest x-ray was obtained. There are 2 views. On my independent interpretation, lung greene are clear. There is normal cardiac silhouette. Bony thorax is normal. There is no acute process noted. Radiologist also interpreted the x-ray and agrees. EKG Initial EKG: Attestation: I personally reviewed and interpreted this EKG as follows: Interpretation: Sinus Rhythm (88) and No Acute Injury Pattern Comments: EKG was obtained. On my independent interpretation, it showed a normal sinus rhythm with a rate of 88. [place] interval, QRS interval, and QTc intervals were all normal. [place] was normal. There are no acute ST or T wave changes. Prior EKG tracings: available for review Prior: Unchanged (04/15/2020) Treatment and Re-Evaluation :: Patient was given IV fluids. Orthostatic vital signs were obtained and were within normal limits. Patient was advised of her findings. Patient was instructed to drink plenty of fluids. Patient was instructed to follow-up with her primary care physician in 5 to 7 days for further evaluation. Patient understood and was agreeable with plan. All questions were answered. Discharge Plan Triage Chief Complaint: Syncope ED Provider: Maximo Lew Dx/Rx/DC Orders Clinical Impression: Syncope and collapse, Nicotine vapor product user Instructions: ED Fainting, Uncertain Cause Prescriptions: No Action albuterol sulfate 1 INHALER inhaler 1 - 2 puff inhalation Q4H PRN PRN (Reason: Wheezing) Qty: 1 0RF dicyclomine 10 mg capsule 20 mg PO TIDAC Qty: 20 0RF Primary Care Provider: Michelle Bashir H[employer] METAL M[employer]ER OPERATOR HELPER Referrals: Michelle Bashir H[employer] METAL MIXER OPERATOR HELPER, H[employer] MET[employer] MIXER OPERATOR HELPER-C [Primary Care Provider] - 3-5 Days Print Language: Macedonian Disposition Disposition: Home, Self Care Discharge Date/Time: 02/04/25 16:42
--- NOTE | 2025-02-04 11:38 | EKG12_ITS ---
Test Reason : SYNC Blood Pressure : */* mmHG Vent. Rate : 88 BPM Atrial Rate : 88 BPM P-R Int : 132 ms QRS Dur : 82 ms QT Int : 360 ms P-R-T Axes : 76 81 60 degrees QTcB Int : 435 ms Normal sinus rhythm Normal ECG Confirmed by WESLEY KEMP, CHRISTINA ([id number]), continuity editor ROCK IZAGUIRRE ([id number]) on 02/06/2025 12:59:44 PM Referred By: Confirmed By: CHRISTINA OLSON MD
[2025-02-04 11:48] VITALS: BP 112/87; BP 120/81; BP 126/75; PULSE 71; PULSE 83; PULSE 93
--- NOTE | 2025-02-04 11:48 | RAD_ITS ---
PROCEDURE: CHEST PA AND LATERAL 02/04/2025 REASON FOR EXAM: SYNCOPE TECHNIQUE: CHEST PA AND LATERAL COMPARISON: Prior study dated January 28, 2025. FINDINGS: Hardware: None Heart: The heart size is normal. Mediastinum: The mediastinal contour is unremarkable. Lungs: The lungs are clear. Bones: RAD/Chest PA and Lateral IMPRESSION: NO ACUTE FINDINGS. Reading Location: [facility]
[2025-02-04 12:16] LABS: Absolute Neutrophil Count 6.3 X10^3/uL (2.0-7.7); Basophil# 0.04 X10^3/uL; Basophil% 0.5 % (0-1); Eosinophil# 0.57 X10^3/uL; Eosinophils% 6.5 % (0-5); Hematocrit 41.4 % (37-47); Hemoglobin 13.9 g/dL (12.0-15.0); Lymphocyte % 17.1 % (19-41); Mean Corp Hgb Conc 33.6 g/dL (32-36); Mean Corpuscular Hgb 31.2 pg (27.0-32.0); Mean Platelet Vol. 11.5 fl (6.2-12.0); Monocyte# 0.38 X10^3/uL; Monocyte% 4.3 % (0-10); NRBC Flagged by Analyzer 0 % (0-5); Neutrophil # 6.25 X10^3/uL (2.7-7.7); Neutrophil % 71.4 % (47-70); Platelet Count 197 K/mm3 (150-450); RBC Distribution Width CV 13.3 % (11.6-14.6); RBC Distribution Width SD 45.1 fl (35.1-43.9); Red Blood Count 4.45 M/mm3 (4.2-5.4); White Blood Count 8.8 K/mm3 (4.4-11.0)
[2025-02-04] MEDS: 0.9% Normal Saline (1000mL) 1,000 ML 1000 ML IV (12:26)
[2025-02-04 12:35] LABS: Anion Gap 9 (5-15); BUN 8 mg/dL (4-19); BUN/Creat Ratio 10.3 RATIO (10-20); Calcium,Total 8.7 mg/dL (7.6-11.0); Carbon Dioxide 24.7 mmol/L (21.0-32.0); Chloride 105 mmol/L (98-108); Creatinine, Serum 0.76 mg/dL (0.70-1.20); EST Glomerular Filtration Rate 112 (>60); Estimated Creatinine Clearance 97.71 ml/min (50-250); Glucose 99 mg/dL (70-99); Potassium 4.5 mmol/L (3.3-5.1); Sodium Level 139 mmol/L (133-145)
[2025-02-04 12:44] LABS: Internal QC Validated? YES +Cl - CLEAR BKGD; Pregnancy, Serum, hCG Quali. NEGATIVE Negative
[2025-02-04 13:01] LABS: Troponin T High Sensitivity < 6 ng/L (<=14)
[2025-02-04 13:15] VITALS: BP 104/78; PULSE 71; RESP 16; O2SAT 100
[2025-02-04 14:05] LABS: Mucous, Urine 0 SEEN /hpf (<or=2+); Red Blood Cells-Urine 0 SEEN /hpf (0-5)
[2025-02-04 14:07] LABS: Color, Urine Yellow (Yellow); Glucose, Dipstick Normal (Normal); Ketone-Dipstick Negative (Negative); Leukocyte Esterase-Dipstick 25 /ul (Negative); Nitrite-Dipstick Negative (Negative); Occult Blood-Urine Negative /ul (Negative); Protein-Dipstick Negative (Negative); Urine Bilirubin Dipstick Negative (Negative); Urine Clarity Sl. Cloudy (Clear); Urine Urobilinogen Normal (Normal)
[2025-02-04 14:19] LABS: Bacteria 2+ /hpf (None Seen); Squamous Epithelial Cells - UA 0-5 SEEN /hpf (5-10); White Blood Cells 0-5 SEEN /hpf (0-5)
[2025-02-04 15:00] VITALS: BP 109/70; PULSE 54; RESP 21; O2SAT 100
[2025-02-04 15:44] LABS: Troponin T High Sens 2 HR < 6 ng/L (<=14)
[2025-02-04 16:41] VITALS: BP 105/74; PULSE 61; RESP 18; TEMP 36.6; O2SAT 100
== END 2025-02-04 16:42 | disposition home or self-care (01) ==
PROVIDERS: Emergency Provider Emergency Medicine; PCP Nurse Practitioner Family; Visit Provider Emergency Medicine
DX: R55 Syncope and collapse (principal); R11.0 Nausea; R07.9 Chest pain, unspecified; R51.9 Headache, unspecified; F17.290 Nicotine dependence, other tobacco product, uncomplicated
CPT/HCPCS: 36415; 71046; 80048; 81001; 84484; 84703; 85025; 93005; 96360; 96361; 99285

== ENCOUNTER 2025-05-07 13:36 | Emergency (ER) | payer OTHER, MEDICAID, SELFPAY ==
[2025-05-07 13:36] VITALS: BP 127/93; PULSE 90; RESP 16; TEMP 36.5; O2SAT 98; BMI 20.6
--- NOTE | 2025-05-07 15:13 | EDS_ITS ---
HPI History of Present Illness Chief Complaint: Upper Extremity Injury Informant: patient Narrative Narrative: Patient is a 24-year-old female [id number] presenting with worsening left shoulder pain. Denies any injury. 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 She denies any new change in her exercise regiment. States she has pain in her left anterior shoulder that is worse when she tries to abduct or flex her shoulder. Denies any associated numbness or tingling. No other complaints or concerns at this time. [facility] Medical History IUD (intrauterine device) in place Smoker Acute bronchitis Irregular heart beat Migraines Heart palpitations Marijuana use Alcohol use Easy bruising Restless legs Back pain Injury of head and neck Syncope Loss of consciousness Heartburn Bronchitis with influenza Shortness of breath on exertion Vapes nicotine containing substance Leg cramps Hypotension Vaginal delivery SROM (spontaneous rupture of membranes) Anxiety (05/06/24) Home Medications ?Medication ?Instructions ?Recorded ?Last Taken ?Type albuterol sulfate 90 mcg/actuation 1 - 2 puff inhalati on Q4H PRN PRN 04/15/20 Unknown Rx aerosol inhaler Wheezing ##1 dicyclomine 10 mg capsule 20 mg (2 x 10 mg) PO TIDAC # 20 01/28/25 Unknown Rx CAPSULES prednisone 20 mg tablet 40 mg (2 x 20 mg) PO DAILY # 8 tabs 05/07/25 Unknown Rx Allergy/AdvReac Type Severity Reaction Status Date / Time No Known Allergies Allergy Verified 05/07/25 13:38 Family History Mother Heart disease Cancer skin Grandmother Hypertension Seizures Thyroid disorder Cancer skin Grandfather Cancer skin Surgical History S/P hernia repair History of umbilical hernia repair [place] teeth removed History of tonsillectomy Social History Smoking Status: Current every day smoker tobacco type: e-cigarettes alcohol intake: never substance use type: does not use ROS ROS ED Constitutional Constitutional ED: Denies chills or fever(s) Musculoskeletal Musculoskeletal: Reports other Details: Left shoulder pain Integumentary Denies Abrasions or rash Neurologic Neurologic: Denies paresthesias or weakness Hematologic/Lymphatic Hematologic/Lymphatic: Denies easy bleeding or easy bruising EXAM Physical Exam Const Vital Signs: 05/07/25 13:36 Temperature 97.7 F L Temperature Source Oral Pulse Rate 90 Respiratory Rate 16 Blood Pressure 127/93 H Blood Pressure Mean 104 Pulse Ox 98 Oxygen Delivery Method Room Air Positive well nourished and well developed General Appearance ED: well developed and NAD HEENT Reports moist mucous membranes Neck full ROM and supple Chest Wall inspection of chest normal and palpation of chest normal Resp normal respiratory effort Cardio regular rate and regular rhythm Cardio Narrative: 2+ radial pulse Extremity Extremity Narrative: No obvious deformity. No tenderness over the left clavicle. Tender to palpation of the bicipital groove of the left shoulder. Tenderness along head of the bicep. No significant pain with passive range of motion of the shoulder. Increased pain at approximately 90 degrees of flexion and abduction. 5/5 strength with bicep curl as well as extension of the arm. Equal vp sales strength bilaterally. No overlying rash or skin changes. Psych mental status grossly normal Skin Lesions: no lesions Rashes: no rashes MDM MDM MDM Narrative Medical decision making narrative: Patient evaluated for worsening left shoulder pain. Differential includes bicep tendinitis, rotator cuff injury. No trauma or deformity on exam low suspicion for AC joint separation, clavicle fracture or shoulder fracture. Do not think he requires an x-ray at this time. Physical exam most consistent with a bicep tendinitis. Physical exam not consistent with a biceps tendon rupture. Patient be given outpatient with pain follow-up. We started on a course of prednisone. Counseled on RICE therapy. Discharged home in stable condition. Given return precautions. Patient has good distal pulses equal vp sales strength and neuro vascularly intact. Discharge Plan Triage Chief Complaint: Upper Extremity Injury ED Provider: Pili Pickering Dx/Rx/DC Orders Clinical Impression: Biceps tendinitis of left shoulder Instructions: ED Tendonitis Prescriptions: New prednisone 20 mg tablet 40 mg PO DAILY Qty: 8 0RF No Action albuterol sulfate 1 INHALER inhaler 1 - 2 puff inhalation Q4H PRN PRN (Reason: Wheezing) Qty: 1 0RF dicyclomine 10 mg capsule 20 mg PO TIDAC Qty: 20 0RF Primary Care Provider: Michelle Bashir NP Referrals: Mehrdad Frausto MD [Med Staff - Active Staff, Orthopedics] Michelle Bashir NP, INSOLVENCY CONSULTANT-C [Primary Care Provider, Family Practice] Activity Restrictions/Additional Instructions: You been started on steroids. I suspect you have inflammation of your bicep which is causing your pain. You need to rest this. Do not do any sit ups or anything that aggravates it for the next week or so. Continue to ice and take NSAIDs. Please follow with your family doctor or orthopedics especially if their symptoms are worsening or not improving. Print Language: Bulgarian Disposition Disposition: Home, Self Care
[2025-05-07 15:23] VITALS: BP 119/99; PULSE 61; RESP 16; TEMP 36.8; O2SAT 99
== END 2025-05-07 15:42 | disposition home or self-care (01) ==
PROVIDERS: Emergency Provider Emergency Medicine; PCP Nurse Practitioner Family; Visit Provider Emergency Medicine
DX: M75.22 Bicipital tendinitis, left shoulder (principal); F17.290 Nicotine dependence, other tobacco product, uncomplicated
CPT/HCPCS: 99282

== ENCOUNTER 2025-06-16 19:29 | Emergency (ER) | payer OTHER, MEDICAID, SELFPAY ==
[2025-06-16 19:30] VITALS: BP 151/100; PULSE 101; RESP 19; TEMP 36.2; O2SAT 100; BMI 21.5
--- NOTE | 2025-06-16 19:47 | EDS_ITS ---
HPI HPI - GI History of Present Illness Chief Complaint: Abd Pain Narrative Narrative: 24-year-old female past medical history previous umbilical hernias with repair presents with periumbilical pain mainly on the right side of her abdomen that began today. She states she has not done anything strenuous, no lifting heavy objects or straining. It happened midday to the point where she started having to double over in pain. She relates history that initially her first umbilical hernia was a simple [address] Qureshi. Her second umbilical hernia was a triple hernia. And Dr. Nation repaired it approximately 1 year ago. She denies any nausea or vomiting. No problems with bowel movements, no diarrhea, no fevers or chills. She complains of pain on the right side of her umbilicus that is worse with movement of her abdomen. PFSH PFSH Medical History IUD (intrauterine device) in place Smoker Acute bronchitis Irregular heart beat Migraines Heart palpitations Marijuana use Alcohol use Easy bruising Restless legs Back pain Injury of head and neck Syncope Loss of consciousness Heartburn Bronchitis with influenza Shortness of breath on exertion Vapes nicotine containing substance Leg cramps Hypotension Vaginal delivery SROM (spontaneous rupture of membranes) Anxiety (05/06/24) Home Medications ?Medication ?Instructions ?Recorded ?Last Taken ?Type albuterol sulfate 90 mcg/actuation 1 - 2 puff inhalati on Q4H PRN PRN 04/15/20 Unknown Rx aerosol inhaler Wheezing ##1 dicyclomine 10 mg capsule 20 mg (2 x 10 mg) PO TIDAC # 20 01/28/25 Unknown Rx CAPSULES prednisone 20 mg tablet 40 mg (2 x 20 mg) PO DAILY # 8 tabs 05/07/25 Unknown Rx Allergy/AdvReac Type Severity Reaction Status Date / Time No Known Allergies Allergy Verified 06/16/25 19:30 Family History Mother Heart disease Cancer skin Grandmother Hypertension Seizures Thyroid disorder Cancer skin Grandfather Cancer skin Surgical History S/P hernia repair History of umbilical hernia repair [place] teeth removed History of tonsillectomy Social History Smoking Status: Current every day smoker tobacco type: e-cigarettes alcohol intake: never substance use type: does not use ROS ROS ED ROS Narrative Review of systems positive for right periumbilical pain worse with bending and stretching of the abdomen. No fevers or chills, no nausea or vomiting, no diarrhea or problems with bowel movements. EXAM Physical Exam Narrative Exam Narrative: Afebrile. Vital signs noted. Nontoxic-appearing. Cardiovascular examination regular rate and rhythm. Lungs are clear to auscultation bilaterally. Abdomen is soft with tenderness to palpation in the right periumbilical area. No erythema, no fluctuance. No guarding or rebound. Neurological examination nonfocal, nonlateralizing. Const Vital Signs: 06/16/25 19:30 06/16/25 21:29 06/16/25 21:58 Temperature 97.2 F L 98.6 F Temperature Source Temporal Pulse Rate 101 H 87 76 Respiratory Rate 19 H 16 16 Blood Pressure 151/100 H 127/84 H 125/76 H Blood Pressure Mean 117 98 92 Pulse Ox 100 100 97 Oxygen Delivery Method Room Air Room Air MDM MDM MDM Narrative Medical decision making narrative: Differential diagnosis includes but not limited to abdominal wall strain versus umbilical hernia versus omental incarcerated umbilical hernia. CBC and BMP will be obtained prior to CT imaging with IV contrast. Serum test will be obtained as well. Patient taken for CT scanner as she does have an IUD in place. I reviewed her laboratory work and she has normal white count of 11.0 with hemoglobin slightly hemoconcentrated at 15.5 with hematocrit 45.2, platelet count normal at 224. BMP is grossly unremarkable except for glucose of 117 with a normal anion gap of 12. BUN and creatinine normal. Serum test is negative so I doubt any ectopic . This seems more abdominal wall pain. I reviewed the radiology report of the CT of the abdomen and pelvis and there is no evidence of an acute intra-abdominal pathology, and they commented that there is no hernia. At this point in time, I do feel she can be discharged to follow-up with Dr. Qureshi as needed. She was given 15 mg of ketorolac prior to discharge. She can take [id number] medications as needed for pain. Return instructions were reviewed. Disposition is discharged home in stable condition. History & Record Review Discussion w/independent historian: Patient Additional record(s) reviewed:: Prior ED visit Lab Data Attestation: I reviewed the patient's lab results. Labs: Laboratory Results - last 24 hr 06/16/25 19:43 WBC 11.0 RBC 4.82 Hgb 15.5 H Hct 45.2 MCV 93.8 MCH 32.2 H MCHC 34.3 RDW Std Deviation 43.4 RDW Coeff of Tony 12.7 Plt Count 224 MPV 10.6 Immature Gran % (Auto) 0.400 Neut % (Auto) 67.8 Lymph % (Auto) 23.0 [place]oval % (Auto) 5.4 Eos % (Auto) 2.9 Baso % (Auto) 0.5 Absolute Neuts (auto) 7.5 Absolute Lymphs (auto) 2.52 Nucleated RBC % 0 Sodium 141 Potassium 3.6 Chloride 104 Carbon Dioxide 23.9 Anion Gap 12 BUN 10 Creatinine 0.74 Estim Creat Clear Calc 100.36 Est GFR (MDRD) Non-Af 115 BUN/Creatinine Ratio 13.2 Glucose 117 H Calcium 9.7 Serum , Qual NEGATIVE Radiography Diagnostic Testing: Clinical Impression(s) from Imaging Studies Abdomen/Pelvis CT 06/16/25 20:00 IMPRESSION: No acute or active inflammatory intra-abdominal pathology. No hernia. Reading Location: [facility] Discharge Plan Triage Chief Complaint: Abd Pain ED Provider: Linden Wallace Dx/Rx/DC Orders Clinical Impression: Abdominal wall pain, History of hernia repair Instructions: ED Abdominal Pain Unkn Cause Fem, ED Symptoms Uncertain Cause Prescriptions: No Action albuterol sulfate 1 INHALER inhaler 1 - 2 puff inhalation Q4H PRN PRN (Reason: Wheezing) Qty: 1 0RF dicyclomine 10 mg capsule 20 mg PO TIDAC Qty: 20 0RF prednisone 20 mg tablet 40 mg PO DAILY Qty: 8 0RF Primary Care Provider: Michelle Bashir NP Referrals: Conor Qureshi MD [Med Staff - Active Staff, General Surgery] - As Needed Michelle Bashir NP, ADOLESCENT SPECIALIST-C [Primary Care Provider, Family Practice] Activity Restrictions/Additional Instructions: [id number] medications like Tylenol or ibuprofen as needed for pain. Return with new or worsening symptoms. Your CT today did not show evidence of an umbilical hernia. Follow-up with Dr. Qureshi as needed. Print Language: Haitian Disposition Disposition: Home, Self Care
[2025-06-16 19:55] LABS: Hematocrit 45.2 % (37-47); Hemoglobin 15.5 g/dL (12.0-15.0); Immature Granulocytes Count 0.040 X10^3/uL (0.0-0.0); Mean Corp Hgb Conc 34.3 g/dL (32-36); Mean Corpuscular Volume 93.8 fL (81-99); Mean Platelet Vol. 10.6 fl (6.2-12.0); NRBC Flagged by Analyzer 0 % (0-5); Platelet Count 224 K/mm3 (150-450); RBC Distribution Width CV 12.7 % (11.6-14.6); RBC Distribution Width SD 43.4 fl (35.1-43.9); Red Blood Count 4.82 M/mm3 (4.2-5.4); White Blood Count 11.0 K/mm3 (4.4-11.0)
--- NOTE | 2025-06-16 20:00 | CT_ITS ---
PROCEDURE: CT ABDOMEN/PELVIS W IV CONT ONLY 06/16/2025 REASON FOR EXAM: PERIUMBILICAL PAIN WITH HISTORY OF HERNIA REPAIR TECHNIQUE: Procedure Code: [id number] Modality: CT Procedure: ABDOMEN/PELVIS W IV CONT ONLY Coronal and Sagittal reconstruction series were provided. CONTRAST: Isovue 370 VOLUME: 93 mL One or more dose reduction techniques were used (e.g., Automated exposure control, adjustment of the mA and/or kV according to patient size, use of iterative reconstruction technique. RADIATION DOSE SUMMARY: DLP: 365.4 mGycm COMPARISON: 12/18/2024 FINDINGS: Lung bases: Clear. Liver: Unremarkable. Gallbladder: Contracted. No biliary ductal dilatation. Spleen: Unremarkable. Pancreas: Unremarkable. Adrenals: Unremarkable. Kidneys: Unremarkable. No hydronephrosis. Bladder: Unremarkable. Reproductive Organs: Retroverted uterus. IUD in place. Unremarkable adnexae. Small crenulated involuting left ovarian probable corpus luteal cyst. No free pelvic fluid. Bowel: No evidence of obstruction or active inflammatory process. Normal appendix. Moderate stool burden throughout the colon may reflect constipation. Lymph nodes: No enlarged abdominopelvic lymph nodes identified. Vasculature: Normal caliber abdominal aorta and IVC. Peritoneum / Retroperitoneum: No ascites or free air. Musculoskeletal: Unremarkable. No hernia. CT/Abdomen/Pelvis W IV Cont ONLY IMPRESSION: No acute or active inflammatory intra-abdominal pathology. No hernia. Reading Location: [id number]
--- OUTSIDE RECORDS SUMMARY | 2025-06-16 20:17 | XMS RPT_ITS | CCD ---
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 treatment for conditions other than malignant neoplasm] Onset: 10-06-2022 03-20-2022 Episodic Comment on above: Patient well-healing now almost 2-week status post primary umbilical hernia repair. There are no wound concerns, but I have encouraged patient to apply triple antibiotic ointment to the incision to finalize healing. She was questioning whether ice is still advised at this point, however, I have informed her that it would only be to her comfort and her healing should be beyond the point where this is highly effective. I have encouraged her to continue to abide with lifting restrictions. To this end she is cleared to return to work next week with light duty prescribed for the subsequent 2 weeks. She is then instructed to begin gradual return to normal activity. Other aftercare (2 sources) Encounter for follow-up examination after completed treatment for conditions other than malignant neoplasm; Translations: [Encounter for follow-up examination after completed treatment for conditions other than malignant neoplasm] Onset: 03-25-2025 Episodic Other circulatory disease (1 source) Respiratory symptom; Translations: [Other specified symptoms and signs involving the circulatory and respiratory systems] Episodic Other circulatory disease (4 sources) Elevated blood-pressure reading without diagnosis of hypertension; Translations: [Elevated blood-pressure reading, without diagnosis of hypertension] 01-28-2025 Episodic Other complications of (2 sources) Uncertain viability of ; Translations: [ with inconclusive viability, not applicable or unspecified] 03-13-2024 Episodic Other complications of (1 source) Nausea and vomiting; Translations: [Vomiting of , unspecified] 03-13-2024 Episodic Other complications of (5 sources) Missed miscarriage; Translations: [Missed ] 03-19-2024 Episodic Other connective tissue disease (1 source) Biceps tendinitis; Translations: [Bicipital tendinitis, left shoulder] 05-15-2025 Episodic Other gastrointestinal disorders (4 sources) Obstipation; Translations: [Constipation, unspecified] 01-28-2025 Episodic Other gastrointestinal disorders (1 source) Constipation; Translations: [Constipation, unspecified] 03-20-2025 Episodic Other gastrointestinal disorders (1 source) Constipation, unspecified; Translations: [Constipation, unspecified constipation type] Onset: 03-20-2025 Episodic Other injuries and conditions due to external causes (20 sources) Closed injury of head; Translations: [Unspecified injury of head, initial encounter] Onset: 10-06-2022 09-18-2021 Episodic Other injuries and conditions due to external causes (20 sources) Contusion of multiple sites; Translations: [Unspecified multiple injuries, initial encounter] Onset: 10-06-2022 09-18-2021 Episodic Other injuries and conditions due to external causes (2 sources) Unspecified injury of right wrist, hand and finger(s), initial encounter; Translations: [Unspecified injury of right wrist, hand and finger(s), initial encounter] Onset: 03-20-2025 Episodic Other lower respiratory disease (1 source) Cough; Translations: [Acute cough] Episodic Other lower respiratory disease (1 source) Wheezing; Translations: [Wheezing] Episodic Other nervous system disorders (4 sources) Postoperative pain ; Translations: [Other acute postprocedural pain] 05-18-2024 Episodic Other non-traumatic joint disorders (1 source) Shoulder joint pain; Translations: [Pain in unspecified shoulder] Onset: 12-18-2022 Episodic Other non-traumatic joint disorders (20 sources) Pain in left shoulder; Translations: [Pain in joint, shoulder region] Onset: 10-17-2022 10-17-2022 Episodic Other non-traumatic joint disorders (2 sources) Pain of right wrist; Translations: [Pain in right wrist] 04-06-2025 Episodic Other non-traumatic joint disorders (2 sources) Pain in right wrist; Translations: [Pain in right wrist] Onset: 04-09-2025 Episodic Other nutritional; endocrine; and metabolic disorders (6 sources) Weight loss; Translations: [Abnormal weight loss] 02-17-2022 Episodic Other nutritional; endocrine; and metabolic disorders (4 sources) Weight decreased; Translations: [Abnormal weight loss] 02-17-2022 Episodic Other and delivery including normal (20 sources) Vaginal delivery; Translations: [Encounter for full-term uncomplicated delivery] Onset: 08-29-2018 Resolved: 08-26-2020 04-17-2021 Episodic Comment on above: PPD#1 Other upper respiratory infections (1 source) Chronic sinusitis; Translations: [Chronic sinusitis, unspecified] 04-28-2024 Chronic Other upper respiratory infections (5 sources) Sore throat symptom; Translations: [Acute pharyngitis, unspecified] Onset: 06-01-2025 Episodic Polyhydramnios and other problems of amniotic cavity (1 source) Subchorionic hematoma; Translations: [Other specified disorders of amniotic fluid and membranes, first trimester, not applicable or unspecified] 03-18-2024 Episodic Residual codes; unclassified (5 sources) Gestation period, 9 weeks; Translations: [9 weeks gestation of ] 03-18-2024 Episodic Residual codes; unclassified (8 sources) History of hernia repair; Translations: [Other specified postprocedural states] 05-27-2024 Episodic Residual codes; unclassified (3 sources) Nicotine-filled electronic cigarette user; Translations: [Tobacco use] 02-04-2025 Episodic Residual codes; unclassified (2 sources) Pain, unspecified; Translations: [Pain, unspecified] Onset: 03-25-2025 Episodic Spondylosis; intervertebral disc disorders; other back problems (20 sources) Cervical radiculopathy; Translations: [Radiculopathy, cervical region] Onset: 10-17-2022 10-11-2022 Episodic Spontaneous (4 sources) demise from miscarriage; Translations: [Complete or unspecified spontaneous without complication] 03-23-2024 Episodic Sprains and strains (20 sources) Strain of muscle of upper limb; Translations: [Strain of unspecified muscle, fascia and tendon at shoulder and upper arm level, left arm, initial encounter] Onset: 10-06-2022 09-28-2022 Episodic Superficial injury; contusion (6 sources) Contusion of right chest wall; Translations: [Contusion of right front wall of thorax, initial encounter] Onset: 04-19-2023 04-16-2023 Episodic Unclassified (2 sources) Injury Onset: 03-25-2025 Urinary tract infections (4 sources) Urinary tract infectious disease; Translations: [Urinary tract infection, site not specified] 05-07-2024 Episodic Viral infection (3 sources) Viral disease; Translations: [Viral infection, unspecified] Episodic Past or Other Problems Problem Classification Problem Date Documented Da te Episodic/Chronic Hemorrhage during ; abruptio placenta; placenta previa (20 sources) Low lying placenta; Translations: [Low lying placenta NOS or without hemorrhage, unspecified trimester] Onset: 11-18-2020 Resolved: 02-02-2021 02-02-2021 Episodic Other aftercare (1 source) Encounter for change or removal of nonsurgical wound dressing; Translations: [Encounter for change or removal of nonsurgical wound dressing] Onset: 11-05-2024 Episodic Other complications of (20 sources) RhD negative; Translations: [Other specified related conditions, unspecified trimester] Onset: 08-30-2018 Resolved: 04-09-2024 08-30-2018 Episodic Other complications of (20 sources) Abnormal placenta affecting management of mother; Translations: [Other malformation of placenta, unspecified trimester] Onset: 11-18-2020 Resolved: 04-09-2024 03-19-2021 Episodic Other complications of (20 sources) High risk ; Translations: [Supervision of other high risk pregnancies, third trimester] Onset: 01-31-2021 Resolved: 04-09-2024 01-31-2021 Episodic Other complications of (20 sources) Benign gestational thrombocytopenia; Translations: [Other diseases of the blood and blood-forming organs and certain disorders involving the immune mechanism complicating , unspecified trimester] Onset: 12-13-2018 Resolved: 08-26-2020 08-26-2020 Episodic Other lower respiratory disease (2 sources) Shortness of breath; Translations: [Shortness of breath] Onset: 04-08-2020 Episodic Other non-traumatic joint disorders (16 sources) Shoulder pain; Translations: [Pain in left shoulder] Onset: 10-17-2022 Episodic Other upper respiratory disease (20 sources) Nasal congestion; Translations: [Nasal congestion] Onset: 03-08-2012 Resolved: 03-10-2019 03-10-2019 Episodic Screening and history of mental health and substance abuse codes (20 sources) H/O: anxiety state; Translations: [Personal history of other mental and behavioral disorders] Onset: 08-29-2018 Resolved: 08-26-2020 08-29-2018 Episodic Substance-related disorders (20 sources) Marijuana user; Translations: [Cannabis use, unspecified, uncomplicated] Onset: 08-26-2020 08-26-2020 Episodic Syncope (4 sources) Syncope and collapse; Translations: [Syncope and collapse] Onset: 02-09-2025 02-04-2025 Episodic Results Test Name Value Interpretation Reference Range Facility ED Prov Noteon 06-08-2025 ED Prov Note [facility] EMERGENCY DEPARTMENT ATTENDING NOTE: NAME: Bowen Jones CSN: [id number] 24 y.o. PCP: Michelle Bashir CNP History: Chief Complaint: Exposure to STD (Pt to Er c/o burning and irritation, pt states I think I may have been exposed to an STD) HPI: The history was obtained from the patient. Bowen is a 24 y.o. female who presents with a chief complaint of Exposure to STD (Pt to Er c/o burning and irritation, pt states I think I may have been exposed to an STD). As per the patient she has been having burning urination and discomfort in her bladder for the last couple of days, also found out that her boyfriend was cheating on her. No vaginal discharge no rashes in the genitalia PMHx: Past Medical History: Diagnosis Date Depression PTSD (post-traumatic stress disorder) PMSx: Past Surgical History: Procedure Laterality Date HERNIA REPAIR N/A TONSILLECTOMY N/A FAM. Hx: No family history on file. SOC. Hx: Social History [1] MEDs: Previous Medications Medication Sig albuterol 90 mcg/actuation inhaler Inhale 2 (two) puffs every 4 (four) hours as needed . omeprazole (PRILOSEC) 20 MG capsule Take 1 (one) capsule (20 mg total) by mouth every morning . ALL: Allergies[2] ROS: Review of Systems Positives and pertinent negatives as per HPI. All other systems were reviewed and are negative. Physical Exam: Patient Vitals for the past 24 hrs: BP Temp Temp src Pulse Resp SpO2 Height Weight 06/08/25 2139 (!) 137/97 98 degrees F (36.7 degrees C) Temporal 92 18 97 % 5' 4 54.4 kg (120 lb) Physical Exam Vitals reviewed. Cardiovascular: Rate and Rhythm: Normal rate. Pulmonary: Effort: Pulmonary effort is normal. Laboratory & Radiological Imaging (if done): Labs Reviewed POC URINALYSIS DIPSTICK,AUTO - RALS - Abnormal; Notable for the following components: Result Value Ketones, UA Trace (*) Urobilinogen, UA 2.0 (*) All other components within normal limits POC , URINE - RALS - Normal Narrative: Negative: Dilute urine specimens, as indicated by a low specific gravity (<1.010) may not contain representitive levels of hCG. If is still suspected, a serum test or repeat urine test using a first morning urine specimen should be considered. CHLAMYDIA/GC/TRICH OMONAS AMPLIFIED RNA Narrative: The following orders were created for panel order Chlamydia/GC/Trich omonas Amplified RNA. Procedure Abnormality Status --------- ------ Chlamydia/Gonorrho eae Am...[[id number]] Trichomonas vaginalis Am...[[id number]] Please view results for these tests on the individual orders. CHLAMYDIA/GONORRHO EAE AMPLIFIED RNA TRICHOMONAS VAGINALIS AMPLIFIED RNA POC URINALYSIS DIPSTICK,AUTO POC , URINE No orders to display Procedures: Procedures ED Course / Medical Decision Making: I did personally review Bowen's past medical history, surgical history, social history, as well as family history (when relevant). In this case, I also oversaw the her drug management by reviewing her medication list, allergy list, as well as the medications that I prescribed during the ED course and/or recommended as an out-patient (including possible OTC medications such as acetaminophen, NSAIDs , etc). Her past medical problem list included: Active Ambulatory Problems Diagnosis Date Noted No Active Ambulatory Problems Resolved Ambulatory Problems Diagnosis Date Noted No Resolved Ambulatory Problems Past Medical History: Diagnosis Date Depression PTSD (post-traumatic stress disorder) ED MEDICATIONS GIVEN: Medications doxycycline hyclate (VIBRAMYCIN) capsule 100 mg (100 mg Oral Given 06/08/252204) And cefTRIAXone IM (ROCEPHIN) injection 500 mg (500 mg Intramuscular Given 06/08/252202) After reviewing the items above, I did not look at previous medical documentation, such as recent hospitalizations, office visits, and/or recent consultations with PCP/specialist. SDOH: Another factor that I considered in Bowen's care was her Social Determinants of Health (SDOH). During this ED encounter, she did NOT appear to have any significant issues identified. ED COURSE: My differential diagnosis Acute UTI, acute cystitis, acute STD Urinalysis was unremarkable at this time patient was treated with doxycycline and Rocephin in the ED and sent to the prescribed doxycycline to home. . Clinical Impression: 1. Encounter for assessment of STD exposure Disposition: ED Disposition ED Disposition Discharge Condition Stable Comment Bowen Jones discharged to home/self care in stable condition. New Prescriptions doxycycline hyclate (VIBRA-TABS) 100 MG tablet Take 1 (one) tablet (100 mg total) by mouth 2 (two) times a day for 7 days . Rebecca Westfall MD, MD ED Attending Physician [facility] EM[facility]GENCY [facility]PART[facility] [1] Social History Socioeconomic (more content not included)... Normal [facility] Beta HCG ( test) Ql (U) Negative Normal Negative [facility] Comment on above: Order Comment: Negat rola: Dilute urine specimens, as indicated by a low specific gravity (<1.010) may not contain representitive levels of hCG. If is still suspected, a serum test or repeat urine test using a first morning urine specimen should be considered. POC URINALYSIS DIPSTICK,AUTO - RALSon 06-08-2025 POC BILIRUBIN, URINE Negative Normal Negative [facility] POC BLOOD, URINE Negative Normal Negative [facility] POC GLUCOSE, URINE Negative Normal Negative [facility] POC KETONES, URINE Trace Abnormal Negative [facility] POC LEUKOCYTE ESTERASE, URINE Negative Normal Negative [facility] POC NITRITE, URINE Negative Normal Negative [facility] POC PH, URINE 6.0 Normal 5.0-7.0 [facility] POC PROTEIN, URINE Negative Normal Negative [facility] POC SPECIFIC GRAVITY 1.025 Normal 1.005-1.025 [facility] POC UROBILINOGEN 2.0 mg/dL Abnormal < 2.0 [facility] CNOVon 06-01-2025 CNOV Office Visit ([facility]) -------- BOWEN JONES ([id number]) 89 F Date Time Provider Department 06/01/25 4:15 PM PAT MCINTOSH [facility] During your visit today, we recorded the following information about you: Temperature Pulse Respiration Blood pressure 98.6 degrees 100/minute 18/minute 110/78 Weight 56.1 kg Pat Mcintosh PA 06/01/2025 4:31 PM Signed [facility] Marilee Contreras Karen is a 24 year old female. Patient presents with: Sinus Problem: Sinus, congestion, fever, nausea and bodyaches x 2 days HPI The patient is a 24-year-old female presenting with fever, congestion, and sneezing. Fever, Congestion, and Sneezing: - Onset of symptoms a few days ago. - Fever of 99.9 degreeF this morning; took Tylenol around 08:00. - Reports congestion, sneezing, and mild cough. - Denies known exposure to sick contacts. - Used albuterol inhaler a few times last night due to congestion when lying down. - Describes asthma as borderline, using inhaler PRN. - Reports ear pressure. PAST MEDICAL HISTORY Diagnosis Date Allergic rhinitis anxiety Closed head injury 10/06/2022 Cyst of left ovary 03/15/2024 Low-lying placenta (HCC) 11/18/2020 01/31/21- No longer low lying via ultrasound. Anahy Weeks APRN.CN 11/18/20:recheck placental location in 8-12 WEEKS. Kerri Godwin MD Menarche 09/2011 Miscarriage at 8 to 28 weeks gestation (HCC) 03/15/2024 NEGATIVE HISTORY OF 04/29/2012 Normal Color Vision NEGATIVE MEDICAL HISTORY PAST SURGICAL HISTORY Procedure Laterality Date DANDC, DIAG AND/OR THERAPEUTIC 03/20/2024 Suction DANDC NEXPLANON INSERTION 05/31/2015 REPAIR EPIGASTRIC HERNIA,REDUC TONSILLECTOMY PRIMARY/SECONDARY ALLERGIES Seasonal Allergies MEDICATIONS levonorgestrel (LILETTA INTRAUTERINE) 52 mg by INTRAUTERINE route one time only. albuterol HFA (PROVENTIL HFA, VENTOLIN HFA) 90 mcg/actuation inhaler Inhale 2 Puffs as instructed every 4 hours as needed. omeprazole (PRILOSEC) 20 mg capsule Take 1 capsule by mouth every morning. (Patient not taking: Reported on 06/01/2025) ondansetron (ZOFRAN) 4 mg tablet Take 1 tablet by mouth every 8 hours as needed. (Patient not taking: Reported on 06/01/2025) psyllium husk (METAMUCIL) 0.4 gram cap Take 1 capsule by mouth once daily as needed. (Patient not taking: Reported on 06/01/2025) vits62/FA/om3/dha/ epa ( GUMMY ORAL) Take by mouth once daily. Has iron but unsure if folic acid (Patient not taking: Reported on 04/28/2024) FAMILY HISTORY Problem Relation Age of Onset Heart Mother other (bipolar) Father No Known Problems Sister No Known Problems Sister No Known Problems Brother No Known Problems Brother Heart Maternal Grandmother No Known Problems Maternal Grandfather other (bipolar) Paternal Grandmother other (bipolar) Paternal Grandfather other (Negative) Other Heart Brother 14 pericarditis SOCIAL HISTORY[1] Review of Systems Constitutional: (+) fever Ears/Nose/Mouth/Th roat: (+) sneezing, (+) nasal congestion, (+) ear pressure Respiratory: (+) cough Gastrointestinal: (+) nausea Objective BP 110/78 Pulse 100 Temp 37 ?C (98.6 ?F) (Tympanic) Resp 18 Wt 56.1 kg (123 lb 10.9 oz) LMP 12/24/2023 (Approximate) SpO2 98% BMI 21.74 kg/m? Physical Exam General: Not in acute distress, normal appearance, well-developed, not toxic-appearing HEENT - Eyes: Conjunctivae normal - Ears: Right ear: Mild serous otitis media, no signs of infection; Left ear: Mild serous otitis media, no signs of infection - Nose/Sinuses: Nose + congestion - Oropharynx: Mucous membranes moist, oropharynx without erythema or exudate, uvula midline Cardiovascular - Rate/Rhythm: Normal rate and regular rhythm - Heart Sounds: Normal heart sounds Pulmonary - Lung Sounds: Normal breath sounds - Respiratory Effort: Pulmonary effort normal Neurologic - Mental Status: Alert Skin: Skin warm and dry Lymphatic - Cervical: No cervical adenopathy { 1. URI, acute (J06.9) - Symptoms include sneezing, congestion, low-grade fever (99.9 degreeF), mild cough, and nausea. - Physical exam: clear lungs, non-erythematous throat, serous fluid behind tympanic membranes without signs of infection. - Most likely etiology is viral. - COVID-19 swab ordered; results expected by tomorrow morning. - Recommended Flonase nasal spray for sinus congestion. - Provided work note for absence due to fever and potential viral infection. and Recording using Percentil software for draft documentation of the visit was discussed with the patient/authorized safety representative; all questions welcomed and answered. Patient/authorized safety representative agreed to proceed History and Record Review Systemic symptoms present included: Fever Differential Diagnoses - URI is more likely for the following reaso (more content not included)... [facility] Letter Text Normal [facility] CNPNon 05-21-2025 VARGASN Telephone (AGFAMPLE) -------- BOWEN JOENS ([id number]) 89 F Date Time Provider Department 05/21/25 MICHELLE BASHIR During your visit today, we recorded the following information about you: Vonda Martinez 05/21/2025 4:25 PM Signed No Show Documentation Bowen Jones no showed for an appointment on 05/21/25 with Michelle Bashir APRN.CUSTODIAL SERVICES MANAGER at 1:20 pm. She was scheduled for GERD. Patient unavailable. No show determined to be fault of patient: Yes This is the patients first no show in the last 12 months. Letter sent via Skwibl : Yes Is this the Third or Fourth No Show? No Vonda Martinez May 21, 2025 4:24 PM Allergies As of Date: 05/21/2025 Noted Allergy Reaction SEASONAL ALLERGIES 09/01/2010 5 - Intolerance Comments: Trees, ragweed Date Reviewed: 03/20/2025 Reviewed by: Michelle Bashir APRN.CUSTODIAL SERVICES MANAGER - Fully Assessed Prescriptions as of 05/21/2025 - omeprazole (PRILOSEC) 20 mg capsule Take 1 capsule by mouth every morning. - ondansetron (ZOFRAN) 4 mg tablet Take 1 tablet by mouth every 8 hours as needed. - psyllium husk (METAMUCIL) 0.4 gram cap Take 1 capsule by mouth once daily as needed. - levonorgestrel (LILETTA INTRAUTERINE) 52 mg by INTRAUTERINE route one time only. - vits62/FA/om3/dha/ epa ( GUMMY ORAL) Take by mouth once daily. Has iron but unsure if folic acid - albuterol HFA (PROVENTIL HFA, VENTOLIN HFA) 90 mcg/actuation inhaler Inhale 2 Puffs as instructed every 4 hours as needed. Problem List As Of Date 05/21/2025 Noted Resolved Chronic nasal congestion [R09.81] 03/08/2012 03/10/2019 Quit smoking [Z87.891] 08/29/2018 08/26/2020 History of anxiety [Z86.59] 08/29/2018 Patient request for diagnostic testing [Z01.89] 08/29/2018 03/10/2019 Encounter for test, result positive [*08/29/2018 08/26/2020 Rh negative, antepartum [O26.899, Z67.91] 08/30/2018 04/09/2024 Benign gestational thrombocytopenia, antepartum* 019 08/26/2020 Marijuana use [F12.90] 08/26/2020 Low-lying placenta [O44.40] 11/18/2020 02/02/2021 Marginal insertion of umbilical cord affecting *11/18/2020 04/09/2024 Supervision of other high risk pregnancies, thi*01/31/2021 04/09/2024 Anxiety [F41.9] 10/06/2022 Closed head injury [S09.90XA] 10/06/2022 Contusion of multiple sites [T07.XXXA] 10/06/2022 History of umbilical hernia repair [Z98.890, Z8*10/06/2022 Muscle strain of left shoulder region [S46.912A]10/06/19 23 Acute pain of left shoulder [M25.512] 10/17/2022 Upper back pain [M54.9] 10/17/2022 Encounter Status:Closed by VONDA MARTINEZ on 05/21/25 [facility] Emergency Department Summary on 05-07-2025 Emergency Department Summary [facility] Medical Records Department [address] [place] [address] Emergency Department Summary 05/07/25 MR#: [id number] Acct: [id number] Name: BOWEN JONES Rep #: [id number] : 2000 From: Pili Pickering DO PCP: Michelle Queden, LEAD ATG DEVELOPER-C Status:REG ER Location: ED HPI History of Present Illness Chief Complaint: Upper Extremity Injury Informant: patient Narrative Narrative: Patient is a 24-year-old female [id number] t presenting with worsening left shoulder pain. Denies any injury. 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 She denies any new change in her exercise regiment. States she has pain in her left anterior shoulder that is worse when she tries to abduct or flex her shoulder. Denies any associated numbness or tingling. No other complaints or concerns at this time. [facility] Medical History IUD (intrauterine device) in place Smoker Acute bronchitis Irregular heart beat Migraines Heart palpitations Marijuana use Alcohol use Easy bruising Restless legs Back pain Injury of head and neck Syncope Loss of consciousness Heartburn Bronchitis with influenza Shortness of breath on exertion Vapes nicotine containing substance Leg cramps Hypotension Vaginal delivery SROM (spontaneous rupture of membranes) Anxiety (05/06/24) Home Medications ???Medication ???Instructions ???Recorded ???Last Taken ???Type albuterol sulfate 90 mcg/actuation 1 - 2 puff inhalation Q4H PRN MN N 04/15/20 Unknown Rx aerosol inhaler Wheezing ##1 dicyclomine 10 mg capsule 20 mg (2 x 10 mg) PO TIDAC #20 07/14 Unknown Rx CAPSULES prednisone 20 mg tablet 40 mg (2 x 20 mg) PO DAILY #8 tabs 05/07/25 Unknown Rx Allergy/AdvReac Type Severity Reaction Status Date / Time No Known Allergies Allergy Verified 05/07/25 13:38 Family History Mother Heart disease Cancer skin Grandmother Hypertension Seizures Thyroid disorder Cancer skin Grandfather Cancer skin Surgical History S/P hernia repair History of umbilical hernia repair [place] teeth removed History of tonsillectomy Social History Smoking Status: Current every day smoker tobacco type: e-cigarettes alcohol intake: never substance use type: does not use ROS ROS ED Constitutional Constitutional ED: Denies chills or fever(s) Musculoskeletal Musculoskeletal: Reports other Details: Left shoulder pain Integumentary Denies Abrasions or rash Neurologic Neurologic: Denies paresthesias or weakness Hematologic/Lympha tic Hematologic/Lympha tic: Denies easy bleeding or easy bruising EXAM Physical Exam Const Vital Signs: 05/07/25 13:36 Temperature 97.7 F L Temperature Source Oral Pulse Rate 90 Respiratory Rate 16 Blood Pressure 127/93 H Blood Pressure Mean 104 Pulse Ox 98 Oxygen Delivery Method Room Air Positive well nourished and well developed General Appearance ED: well developed and NAD HEENT Reports moist mucous membranes Neck full ROM and supple Chest Wall inspection of chest normal and palpation of chest normal Resp normal respiratory effort Cardio regular rate and regular rhythm Cardio Narrative: 2+ radial pulse Extremity Extremity Narrative: No obvious deformity. No tenderness over the left clavicle. Tender to palpation of the bicipital groove of the left shoulder. Tenderness along head of the bicep. No significant pain with passive range of motion of the shoulder. Increased pain at approximately 90 degrees of flexion and abduction. 5/5 strength with bicep curl as well as extension of the arm. Equal bowling ball molder strength bilaterally. No overlying rash or skin changes. Psych mental status grossly normal Skin Lesions: no lesions Rashes: no rashes MDM MDM MDM Narrative Medical decision making narrative: Patient evaluated for worsening left shoulder pain. Differential includes bicep tendinitis, rotator cuff injury. No trauma or deformity on exam low suspicion for AC joint separation, clavicle fracture or shoulder fracture. Do not think he requires an x-ray at this time. Physical exam most consistent with a bicep tendinitis. Physical exam not consistent with a biceps tendon rupture. Patient be given outpatient with pain follow-up. We started on a course of prednisone. Counseled on RICE therapy. Discharged home in stable condition. Given return precautions. Patient has good distal pulses equal bowling ball molder strength and neuro vascularly intact. Discharge Plan Triage Chief Complaint: Upper Extremity Injury ED Provide (more content not included)... Normal [facility] ED Prov Noteon 04-22-2025 ED Prov Note ED PROVIDER NOTE [facility] EMERGENCY DEPARTMENT NAME: Bowen Jones AGE: 24 y.o. : 2000 VISIT DATE: 04/22/2025 CSN: [id number] PCP: Michelle Bashir CNP Chief Complaint Patient presents with Eye Problem Chief complaint eye irritation History of present illness this is a 24-year-old female who does not wear contacts is here with right eye swelling the sclera is red and slightly puffy and conjunctive up feels scratchy she woke up this morning with this no visual loss Past Medical History: Diagnosis Date Depression PTSD (post-traumatic stress disorder) Past Surgical History: Procedure Laterality Date HERNIA REPAIR N/A TONSILLECTOMY N/A No family history on file. Social History [1] Previous Medications Medication Sig albuterol 90 mcg/actuation inhaler Inhale 2 (two) puffs every 4 (four) hours as needed . omeprazole (PRILOSEC) 20 MG capsule Take 1 (one) capsule (20 mg total) by mouth every morning . Allergies[2] Review of Systems All other systems reviewed and are negative. Patient Vitals for the past 24 hrs: BP Temp Temp src Pulse Resp SpO2 Height Weight 04/22/25 0803 (!) 121/94 98.5 degrees F (36.9 degrees C) Temporal 80 16 96 % 5' 4 54.4 kg (120 lb) Physical Exam Vitals and nursing note reviewed. Exam conducted with a corporate representative present. Constitutional: Appearance: Normal appearance. She is normal weight. HENT: Head: Normocephalic and atraumatic. Eyes: Extraocular Movements: Extraocular movements intact. Pupils: Pupils are equal, round, and reactive to light. Comments: Examination right upper eyelid slightly swollen sclera is slightly erythematous and edematous Neurological: Mental Status: She is alert. Laboratory & Radiographic Imaging (if done): No results found for this visit on 04/22/25. No orders to display Procedures Medical Decision Making fferential diagnosis considered #1 corneal abrasion #2 corneal ulcer #3 corneal foreign body #4 conjunctivitis #5 herpetic keratiti Clinical Impression: 1. Acute bacterial conjunctivitis, unspecified laterality ED Disposition ED Disposition Discharge Condition Stable Comment Bowen Jones discharged to home/self care in stable condition. Follow-up Information 1. Michelle Bashir CNP. Specialty: Nurse Practitioner [address] [place] [address] [phone] Contact information for after-discharge care Follow-up information has not been specified. New Prescriptions naphazoline-phenir amine (NAPHCON-A) 0.025-0.3 % ophthalmic solution Administer 2 (two) drops to the right eye 4 (four) times a day for 5 days . tobramycin (TOBREX) 0.3 % ophthalmic solution Administer 2 (two) drops to both eyes every 4 (four) hours while awake for 5 days . [1] Social History Socioeconomic History Marital status: Single Tobacco Use Smokeless tobacco: Never Vaping Use Vaping status: Every Day Substance and Sexual Activity Alcohol use: Not Currently Drug use: Not Currently [2] No Known Allergies Teo Fan MD 04/22/25 0819 AUTHENTICATED BY TEO FAN, ON 04/22/2025 08:19:35 [facility] No Panel Informationon 04-18 Radiology Study observation (narrative) [facility] Work Phone: XR FOOT RIGHT 3+ VIEWSon XR FOOT RIGHT 3+ VIEWS STUDY: Foot Radiographs; 04/18/2025 17:48 INDICATION: Status post fall, injury. COMPARISON: None Available. ACCESSION NUMBER(S): [id number] ORDERING CLINICIAN: CARLOS JASON TECHNIQUE: Three view(s) of the right foot. FINDINGS: No acute fractures or dislocations are visualized within the right foot. No Lisfranc's deformity is noted. No soft tissue swelling is noted. No spurring or erosions are visualized. There is a bipartite medial sesamoid at the head of the first metatarsal bone. IMPRESSION: No acute osseous findings involving the right foot. Signed by Acosta Castillo MD [facility] XR Foot - right 3 Viewson No acute osseous findings involving the right foot. Signed by Acosta Castillo MD TELERADIOLOGY STUDY: Foot Radiographs; 04/18/2025 17:48 INDICATION: Status post fall, injury. COMPARISON: None Available. ACCESSION NUMBER(S): [id number] ORDERING CLINICIAN: CARLOS JASON TECHNIQUE: Three view(s) of the right foot. FINDINGS: No acute fractures or dislocations are visualized within the right foot. No Lisfranc's deformity is noted. No soft tissue swelling is noted. No spurring or erosions are visualized. There is a bipartite medial sesamoid at the head of the first metatarsal bone. TELERADIOLOGY Acosta Castillo MD - 04/18/2025 STUDY: Foot Radiographs; 04/18/2025 17:48 INDICATION: Status post fall, injury. COMPARISON: None Available. ACCESSION NUMBER(S): [id number] ORDERING CLINICIAN: CARLOS JASON TECHNIQUE: Three view(s) of the right foot. FINDINGS: No acute fractures or dislocations are visualized within the right foot. No Lisfranc's deformity is noted. No soft tissue swelling is noted. No spurring or erosions are visualized. There is a bipartite medial sesamoid at the head of the first metatarsal bone. IMPRESSION: No acute osseous findings involving the right foot. Signed by Acosta Castillo MD [facility] Work Phone: XR Foot - right 3 ViewsOrder ed By: Acosta Castillo on 04-18-2025 [facility] Work Phone: XR TIBIA FIBULA RIGHT 2 VIEW Son 04-18-2025 XR TIBIA FIBULA RIGHT 2 VIEWS STUDY: Tibia and Fibula Radiographs; 04/18/2025 17:48 INDICATION: Status post fall, injury. COMPARISON: None Available. ACCESSION NUMBER(S): [id number] ORDERING CLINICIAN: CARLOS JASON TECHNIQUE: Two views (three images) of the right tibia and fibula. FINDINGS: There is no displaced fracture. The alignment is anatomic. No soft tissue abnormality is seen. IMPRESSION: No acute osseous abnormality. Signed by Ajith Clement MD [facility] XR Tibia and Fibula - right 2 Viewson 04-18-2025 No acute osseous abnormality. Signed by Ajith Clement MD TELERADIOLOGY STUDY: Tibia and Fibula Radiographs; 04/18/2025 17:48 INDICATION: Status post fall, injury. COMPARISON: None Available. ACCESSION NUMBER(S): [id number] ORDERING CLINICIAN: CARLOS JASON TECHNIQUE: Two views (three images) of the right tibia and fibula. FINDINGS: There is no displaced fracture. The alignment is anatomic. No soft tissue abnormality is seen. TELERADIOLOGY Ajith Clement MD - 04/18/2025 STUDY: Tibia and Fibula Radiographs; 04/18/2025 17:48 INDICATION: Status post fall, injury. COMPARISON: None Available. ACCESSION NUMBER(S): [id number] ORDERING CLINICIAN: CARLOS JASON TECHNIQUE: Two views (three images) of the right tibia and fibula. FINDINGS: There is no displaced fracture. The alignment is anatomic. No soft tissue abnormality is seen. IMPRESSION: No acute osseous abnormality. Signed by Ajith Clement MD [facility] Work Phone: XR Tibia and Fibula - right 2 ViewsOrdered By: Ajith Clement on 04-18-2025 [facility] Work Phone: XR ELBOW RIGHT 3+ VIEWS (STA NDARD)on 04-09-2025 XR ELBOW RIGHT 3+ VIEWS (STANDARD) EXAMINATION: XR ELBOW RIGHT 3+ VIEWS (STANDARD) HISTORY: ORDERING SYSTEM PROVIDED HISTORY: Pain, TECHNOLOGIST PROVIDED HISTORY: Injury/Trauma Reason for exam: Right elbow pain from a fall. Follow up Cancer History: . Surgery, RadiationHistory: . Encounter Type: Subsequent/Follow- up Mechanism of injury: Fall ORDERING SYSTEM PROVIDED DIAGNOSIS CODES: R52 Pain COMPARISON: 03/25/2025. FINDINGS: Three views of the right elbow. No acute fracture. Joint alignment is anatomic. No joint effusion. Soft tissues are within normal limits. IMPRESSION: No acute fracture or traumatic malalignment. ST/r Workstation ID: [id number] Dictated by: TAYLER CLAYTON on Sat Apr 11, 2025 6:48:10 AM EDT Transcribed by: ASHLI GONZALES on Sat Apr 11, 2025 7:18:00 AM EDT Finalized by: TAYLER CLAYTON on Mon Apr 13, 2025 2:35:37 PM EDT Normal [facility] Ambulatory Comment on above: Order Comment: Injur y/Trauma or Illness?:Injury/Trauma How long have you had these symptoms (acute/chronic)?:Acute Reason for exam?:Right elbow pain from a fall. Follow up History of cancer?:. Surgeries, chemotherapy, or radiation?:. Type of Exam?:Subsequent/Follow-up Mechanism of injury?:Fall XR WRIST RIGHT 3+ VIEWS (STA NDARD)on 04-09-2025 XR WRIST RIGHT 3+ VIEWS (STANDARD) EXAMINATION: XR WRIST RIGHT 3+ VIEWS (STANDARD) HISTORY: ORDERING SYSTEM PROVIDED HISTORY: Pain, TECHNOLOGIST PROVIDED HISTORY: Injury/Trauma Reason for exam: Right wrist pain follow up from a fall Cancer History: . Surgery, RadiationHistory: . Encounter Type: Subsequent/Follow- up Mechanism of injury: Fall with outstretched arm ORDERING SYSTEM PROVIDED DIAGNOSIS CODES: R52 Pain COMPARISON: None. FINDINGS: Three views of the right wrist. No acute fracture. Joint alignment is anatomic. Joint spaces are preserved. Soft tissues are within normal limits. IMPRESSION: No acute fracture or traumatic malalignment. [email or web address] Workstation ID: [id number] Dictated by: TAYLER CLAYTON on [facility] Apr 11, 2025 6:47:20 AM EDT Transcribed by: ASHLI GONZALES on [facility] Apr 11, 2025 7:17:34 AM EDT Finalized by: TAYLER CLAYTON on [facility] Apr 13, 2025 2:45:39 PM EDT Normal [facility] Ambulatory Comment on above: Order Comment: Injur y/Trauma or Illness?:Injury/Trauma How long have you had these symptoms (acute/chronic)?:Acute Reason for exam?:Right wrist pain follow up from a fall History of cancer?:. Surgeries, chemotherapy, or radiation?:. Type of Exam?:Subsequent/Follow-up Mechanism of injury?:Fall with outstretched arm XR ELBOW RIGHT 3+ VIEWS (STA NDARD)on 03-25-2025 XR ELBOW RIGHT 3+ VIEWS (STANDARD) EXAMINATION: XR ELBOW RIGHT 3+ VIEWS (STANDARD) 03/25/2025 2:04 pm HISTORY: ORDERING SYSTEM PROVIDED HISTORY: Pain, TECHNOLOGIST PROVIDED HISTORY: Injury/Trauma Reason for exam: Pt fell with an outstreched arm. Radial right elbow pain Cancer History: . Surgery, RadiationHistory: . Encounter Type: Initial Mechanism of injury: Fall ORDERING SYSTEM PROVIDED DIAGNOSIS CODES: R52 Pain FINDINGS: Frontal, oblique and lateral views demonstrate satisfactory alignment. Joint spaces are well maintained. There is no pathologic ossification or radiopaque foreign body. No obvious joint effusion. No acute fracture or dislocation suspected. IMPRESSION: No acute osseous abnormality suspected. [employer] Workstation ID: [id number] Dictated by: MARIO WEEKS on SunMar 27, 2025 11:13:00 AM EDT Transcribed by: NATALY WALTERS on SunMar 27, 2025 11:41:52 AM EDT Finalized by: MARIO WEEKS on SunMar 27, 2025 3:12:53 PM EDT Normal [facility] Ambulatory Comment on above: Order Comment: Injur y/Trauma or Illness?:Injury/Trauma How long have you had these symptoms (acute/chronic)?:Acute Reason for exam?:Pt fell with an outstreched arm. Radial right elbow pain History of cancer?:. Surgeries, chemotherapy, or radiation?:. Type of Exam?:Initial Mechanism of injury?:Fall XR WRIST RIGHT 3+ VIEWS (STA NDARD)on 03-25-2025 XR WRIST RIGHT 3+ VIEWS (STANDARD) EXAMINATION: XR WRIST RIGHT 3+ VIEWS (STANDARD) 03/25/2025 1:29 pm HISTORY: ORDERING SYSTEM PROVIDED HISTORY: Follow-up exam, TECHNOLOGIST PROVIDED HISTORY: Injury/Trauma Reason for exam: Dorsal right wrist pain following a fall with an outstreched hand Cancer History: . Surgery, RadiationHistory: . Encounter Type: Subsequent/Follow- up Mechanism of injury: Fall ORDERING SYSTEM PROVIDED DIAGNOSIS CODES: Z09 Follow-up exam COMPARISON: Right wrist 03/20/2025. FINDINGS: Frontal, oblique, lateral and ulnar deviation views for four views of the right wrist were obtained. IMPRESSION: 1. The alignment is satisfactory and joint spaces are well maintained. There is no pathologic calcification or radiopaque foreign body. 2. No acute fracture or dislocation suspected. [employer] Workstation ID: [id number] Dictated by: MARIO WEEKS on SunMar 26, 2025 9:16:49 AM EDT Transcribed by: NATALY WALTERS on SunMar 26, 2025 9:36:00 AM EDT Finalized by: MARIO WEEKS on SunMar 26, 2025 11:05:45 AM EDT [facility] Ambulatory Comment on above: Order Comment: Injur y/Trauma or Illness?:Injury/Trauma How long have you had these symptoms (acute/chronic)?:Acute Reason for exam?:Dorsal right wrist pain following a fall with an outstreched hand History of cancer?:. Surgeries, chemotherapy, or radiation?:. Type of Exam?:Subsequent/Follow-up Mechanism of injury?:Fall Patricia 03-23-2025 CNPN Telephone (PSYAGN) -------- REE JONESIDRobert Contreras ([id number]) 89 F Date Time Provider Department 03/23/25 PAVEL ANDRE PSYAGN During your visit today, we recorded the following information about you: Rock Vines 03/23/2025 2:11 PM Signed This patient was referred to our office to see Psychiatry I attempted to call the patient and was unable to reach the patient. Voicemail is not set up. Rock Hurtado 03/25/2025 2:30 PM Signed 2nd attempt made. No voicemail set up. Rock Vines Allergies As of Date: 03/23/2025 Noted Allergy Reaction SEASONAL ALLERGIES 09/01/2010 5 - Intolerance Comments: Trees, ragweed Date Reviewed: 03/20/2025 Reviewed by: Michelle Bashir APRN.[facility] - Fully Assessed Reason for Visit: Referral Request [124] Prescriptions as of 03/25/2025 - omeprazole (PRILOSEC) 20 mg capsule Take 1 capsule by mouth every morning. - ondansetron (ZOFRAN) 4 mg tablet Take 1 tablet by mouth every 8 hours as needed. - psyllium husk (METAMUCIL) 0.4 gram cap Take 1 capsule by mouth once daily as needed. - levonorgestrel (LILETTA INTRAUTERINE) 52 mg by INTRAUTERINE route one time only. - vits62/FA/om3/dha/ epa ( GUMMY ORAL) Take by mouth once daily. Has iron but unsure if folic acid - albuterol HFA (PROVENTIL HFA, VENTOLIN HFA) 90 mcg/actuation inhaler Inhale 2 Puffs as instructed every 4 hours as needed. Problem List As Of Date 03/23/2025 Noted Resolved Chronic nasal congestion [R09.81] 03/08/2012 03/10/2019 Quit smoking [Z87.891] 08/29/2018 08/26/2020 History of anxiety [Z86.59] 08/29/2018 Patient request for diagnostic testing [Z01.89] 08/29/2018 03/10/2019 Encounter for test, result positive [*08/29/2018 08/26/2020 Rh negative, antepartum [O26.899, Z67.91] 08/30/2018 04/09/2024 Benign gestational thrombocytopenia, antepartum* 019 08/26/2020 Marijuana use [F12.90] 08/26/2020 Low-lying placenta [O44.40] 11/18/2020 02/02/2021 Marginal insertion of umbilical cord affecting *11/18/2020 04/09/2024 Supervision of other high risk pregnancies, thi*01/31/2021 04/09/2024 Anxiety [F41.9] 10/06/2022 Closed head injury [S09.90XA] 10/06/2022 Contusion of multiple sites [T07.XXXA] 10/06/2022 History of umbilical hernia repair [Z98.890, Z8*10/06/2022 Muscle strain of left shoulder region [S46.912A]10/06/19 23 Acute pain of left shoulder [M25.512] 10/17/2022 Upper back pain [M54.9] 10/17/2022 Encounter Status:Closed by ROCK VINES on 03/23/25 [facility] 03-20-2025 CNOV Office Visit (AGFAMPLE) -------- BOWEN JONES ([id number]) 89 F Date Time Provider Department 03/20/25 9:00 AM MICHELLE BASHIR During your visit today, we recorded the following information about you: Temperature Pulse Respiration Blood pressure 97.8 degrees 60/minute 18/minute 122/76 Weight Height 54 kg 1.607 m Michelle Bashir APRN.CNP 03/22/2025 6:40 PM Signed CHIEF COMPLAINT: Bowen Jones is a 24-year-old female with a history of anxiety, presenting for evaluation of chronic nausea and vomiting, abdominal pain, and irregular menstruation. I reviewed past medical, surgical, social, and family histories today and updated chart. Allergies, chronic medications, and supplements were also reviewed. Recording using Percent[employer] software for draft documentation of the visit was discussed with the patient/authorized safety representative; all questions welcomed and answered. Patient/authorized safety representative agreed to proceed Nausea and Vomiting: - Chronic nausea and emesis, primarily in the morning, described as acidic. - Symptoms triggered by certain smells; aversion to eating in the morning. - Symptoms have been present for an extended period, not associated with IUD placement. - Bowen has tried Zofran and possibly Phenergan or Compazine in the past. - Denies abdominal pain postprandially; occasionally experiences pressure. - Denies family history of celiac disease or other GI conditions. - Reports unintentional weight loss due to difficulty eating in the morning. Abdominal Pain: - Generalized lower abdominal pain. - Recent CT abdomen and chest in January showed moderate constipation. - Prescribed Metamucil for constipation, which has improved; having daily bowel movements. - No current use of pain medications. - Two umbilical hernia repairs: one in 2021 and a triple hernia repair in 2023. - Follow-up with surgeon confirmed no significant issues; potential small hernia would require a different surgical approach. Irregular Menstruation: - IUD in place for about a year; initially no issues. - Amenorrhea for 2.5 months, followed by a very heavy period with cramping. - Negative urine and blood tests during amenorrhea. - Scheduled for IUD removal due to bleeding and pain issues. Anxiety: - Seeing a licensed counselor for anxiety and trauma therapy. - Counselor suggested genetic testing for MTHFR gene and potential vitamin B supplementation. - No current medication for anxiety; counselor is pro-medication but has not prescribed any. Presyncope: - Episodes of feeling like she might pass out, accompanied by dizziness, sweating, tachycardia, and tinnitus. - No recent syncope; manages episodes by lying down. - Uncertain if episodes are related to blood pressure fluctuations. PAST MEDICAL HISTORY Diagnosis Date Allergic rhinitis anxiety Closed head injury 10/06/2022 Cyst of left ovary 03/15/2024 Low-lying placenta (HCC) 11/18/2020 01/31/21- No longer low lying via ultrasound. Anahy Weeks APRN.CNM 11/18/20:recheck placental location in 8-12 WEEKS. Kerri Godwin MD Menarche 09/2011 Miscarriage at 8 to 28 weeks gestation (HCC) 03/15/2024 NEGATIVE HISTORY OF 04/29/2012 Normal [facility] NEGATIVE MEDICAL HISTORY PAST SURGICAL HISTORY Procedure Laterality Date DANDC, DIAG AND/OR THERAPEUTIC 03/20/2024 Suction DANDC NEXPLANON INSERTION 05/31/2015 REPAIR EPIGASTRIC HERNIA,REDUC TONSILLECTOMY PRIMARY/SECONDARY Social History Tobacco Use Smoking status: Former Current packs/day: 0.00 Types: Cigarettes Quit date: 04/26/2020 Years since quittin.9 Smokeless tobacco: Never Tobacco comments: vape Vaping Use Vaping status: Former Substances: Nicotine, Flavoring Substance Use Topics Alcohol use: No Drug use: Not Currently Types: Marijuana ALLERGIES Allergen Reactions Seasonal Allergies Intolerance Trees, ragweed Family History Problem Relation Age of Onset Heart Mother other (bipolar) Father No Known Problems Sister No Known Problems Sister No Known Problems Brother No Known Problems Brother Heart Maternal Grandmother No Known Problems Maternal Grandfather other (bipolar) Paternal Grandmother other (bipolar) Paternal Grandfather other (Negative) Other Heart Brother 14 pericarditis Current Outpatient Medications Medication Sig Dispense Refill levonorgestrel (LILETTA INTRAUTERINE) 52 mg by INTRAUTERINE route one time only. albuterol HFA (PROVENTIL HFA, VENTOLIN HFA) 90 mcg/actuation inhaler Inhale 2 Puffs as instructed every 4 hours as needed. 18 g 0 omeprazole (PRILOSEC) 20 mg capsule Take 1 capsule by mouth every morning. 30 capsule 2 ondansetron (ZOFRAN) 4 mg tablet Take 1 tablet by mouth every 8 hours as needed. 12 tablet 0 psyllium husk (METAMUCIL) 0.4 gram cap Take 1 capsule by harley (more content not included)... Normal [facility] ED Prov Noteon 03-20-2025 ED Prov Note HPI: 03/20/2025, Time: @CRISTOPHER@ Bowen Jones is a 24 y.o. female presenting to the ED for right wrist pain after falling onto outstretched hand while running, beginning yesterday ago. The complaint has been constant, moderate in severity, and worsened by changing position. And gripping. No numbness and no limitation of motion ROS: Pertinent positives and negatives are stated within HPI, all other systems reviewed and are negative. --------- PAST HISTORY --------- Past Medical History: @[facility]@ Past Surgical History: has no past surgical history on file. Social History: Family History: family history is not on file. The patient's home medications have been reviewed. Allergies: Patient has no known allergies. RESULTS All laboratory and radiology results have been personally reviewed by myself LABS: No results found for this or any previous visit. RADIOLOGY: Interpreted by Radiologist. XR Wrist Right 3+ Views (Standard) (Results Pending) ------- NURSING NOTES AND VITALS REVIEWED --------- The nursing notes within the ED encounter and vital signs as below have been reviewed. BP (!) 133/97 Pulse 82 Temp 98.5 degrees F (36.9 degrees C) Resp 18 Ht 5' 3 Wt 54.4 kg (120 lb) SpO2 97% BMI 21.26 kg/m Oxygen Saturation Interpretation: Normal PHY SICAL EXAM ------ Constitutional/Gen eral: Alert and oriented x3, well appearing, non toxic in NAD Head: NC/AT Eyes: PERRL, EOMI Mouth: Oropharynx clear, handling secretions, no trismus Neck: Supple, full ROM, no meningeal signs Pulmonary: Lungs clear to auscultation bilaterally, no wheezes, rales, or rhonchi. Not in respiratory distress Cardiovascular: Regular rate and rhythm, no murmurs, gallops, or rubs. 2+ distal pulses Abdomen: Soft, non tender, non distended, Extremities: Moves all extremities x 4. Warm and well perfused, right wrist: Moderate tenderness to palpation over the distal radius and also over distal forearm, neurovasc intact and range of motion intact Skin: warm and dry without rash Neurologic: GCS 15, Psych: Normal Affect ED COURSE/MEDICAL DECISION MAKING Medications - No data to display Medical Decision Making: Will obtain x-ray to rule out fracture Counseling: The emergency provider has spoken with the patient and discussed today's results, in addition to providing specific details for the plan of care and counseling regarding the diagnosis and prognosis. Questions are answered at this time and they are agreeable with the plan. IMPRESSION AND DISPOSITION IMPRESSION 1. Injury of right wrist, initial encounter DISPOSITION Disposition: discharged to home Patient condition is stable Summation Patient Course: Stable ED Medications administered this visit: Medications - No data to display New Prescriptions from this visit: New Prescriptions ibuprofen (ADVIL,MOTRIN) 400 MG tablet Take 1 (one) tablet (400 mg total) by mouth every 6 (six) hours as needed for pain . Follow-up: Yoshi Branch MD [address] [place] [id number] In 1 week Final Impression: 1. Injury of right wrist, initial encounter (Please note that portions of this note were completed with a voice recognition program. Efforts were made to edit the dictations but occasionally words are mis-transcribed.) Katalina Donato MD 03/20/25 1227 AUTHENTICATED BY KATALNIA DONATO, ON 03/20/2025 12:27:41 [facility] XR WRIST RIGHT 3+ VIEWS (STA NDARD)on 03-20-2025 XR WRIST RIGHT 3+ VIEWS (STANDARD) EXAMINATION: XR WRIST RIGHT 3+ VIEWS (STANDARD) HISTORY: ORDERING SYSTEM PROVIDED HISTORY: fall, TECHNOLOGIST PROVIDED HISTORY: Injury/Trauma Reason for exam: right wrist pain Cancer History: . Surgery, RadiationHistory: . Encounter Type: Initial Mechanism of injury: C/o tripping and falling last night. Pain to R hand, wrist, and forearm. Pain is worse in navicular area ORDERING SYSTEM PROVIDED DIAGNOSIS CODES: COMPARISON: None FINDINGS: Subtle contour irregularity of the scaphoid waist only seen on the navicular radiograph. Otherwise, no evidence of acute fracture. Alignment is anatomic. The joint spaces are preserved. The soft tissues are unremarkable. IMPRESSION: Subtle contour irregularity of the scaphoid waist could represent acute nondisplaced scaphoid waist fracture if there is point tenderness. Workstation ID: [id number] Dictated by: MIRNA ALBERTS on SunMar 20, 2025 12:28:57 PM EDT Transcribed by: MIRNA ALBERTS on SunMar 20, 2025 12:28:57 PM EDT Finalized by: MIRNA ALBERTS on SunMar 20, 2025 12:28:57 PM EDT [facility] Comment on above: Order Comment: Injur y/Trauma or Illness?:Injury/Trauma How long have you had these symptoms (acute/chronic)?:Acute Reason for exam?:right wrist pain History of cancer?:. Surgeries, chemotherapy, or radiation?:. Type of Exam?:Initial Mechanism of injury?:C/o tripping and falling last night. Pain to R hand, wrist, and forearm. Pain is worse in navicular area Surgery Visit Reporton 03-03 Surgery Visit Report [facility] [address] [place] [address] OFFICE VISIT Date of Service: 03/03/25 MR#: [id number] Acct: [id number] Name: BOWEN JONES Rep #: [id number] : 2000 Provider: Dr. Conor serrano MD Age/Sex: 24/F Location: [facility] Status: Signed Intake Vital Signs 02/04/25 11:15 Height 5 ft 4 in Intake Visit Reasons: ED F/U- PAIN AT PREV. HERNIA SITE Chief Complaint: pain at umbilicus Cover Maker Required: No Is patient in pain?: Yes (umbilical tenderness) Allergies No Known Allergies Allergy (Verified 03/03/25 15:10) Medications ???Medication ???Instructions ???Recorded ???Confirmed ???Type albuterol sulfate 90 mcg/actuation 1 - 2 puff inhalation Q4H PRN MN N 04/15/20 12/18/24 Rx aerosol inhaler Wheezing ##1 dicyclomine 10 mg capsule 20 mg (2 x 10 mg) PO TIDAC #20 07/14 Rx CAPSULES Have you fallen in the past year?: No PFSH Medical History IUD (intrauterine device) in place Smoker Acute bronchitis Irregular heart beat Migraines Heart palpitations Marijuana use Alcohol use Easy bruising Restless legs Back pain Injury of head and neck Syncope Loss of consciousness Heartburn Bronchitis with influenza Shortness of breath on exertion Vapes nicotine containing substance Leg cramps Hypotension Vaginal delivery SROM (spontaneous rupture of membranes) Anxiety (05/06/24) Surgical History S/P hernia repair History of umbilical hernia repair [place] teeth removed History of tonsillectomy Family History Mother Heart disease Cancer skin Grandmother Hypertension Seizures Thyroid disorder Cancer skin Grandfather Cancer skin Social History Smoking Status: Current every day smoker tobacco type: e-cigarettes alcohol intake: never substance use type: does not use HPI HPI HPI: Patient is a 24-year-old female who presents for evaluation of abdominal discomfort had prior hernia repair site. She is known to me for a history of hernia repairs first on 03/06/2022 (umbilical hernia) followed by an epigastric hernia repair on 05/08/2024. She states that she has recently become more active at the gym as she tries to strengthen her core and she has noted some discomfort over hernia site. 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 She reports noticing some firmer tissue in the area of her hernia repair and is uncertain whether this represents simple scar tissue or something more. Given her concern she presented to the emergency department on 2 separate occasions???12/19/19 and then again on 01/28/2025. CT imaging of the abdomen pelvis was obtained at the first visit. Exam Const General: cooperative, no acute distress and anxious Resp Effort Inspection: normal respiratory effort GI Other: Slender, stable scar appearance is just superior to the umbilical piercing. I palpate some firmer scar tissue deeply but no hernia defect. There is tenderness with this palpation as well as over the umbilicus. Assessment and Plan Assessment and Plan (1) Postoperative abdominal pain: Status: Acute Comment: Patient 24-year-old female with now???remote histories of primary umbilical and epigastric hernia repairs by me in 2021 in 2023, respectively. She presents today with ongoing abdominal discomfort at her prior hernia repairs. She does admit to becoming more active at the gym that she has done more with core strengthening exercises. Additionally, she had an event at work where she had to physically restrain a child and thereafter experienced some discomfort. She acknowledges that the discomfort has improved but finds a persistent rigid tissue deeply to her hernia repair. She states she was partially reassured at her recent ER visit for the same indication but wanted to be safe than sorry and have me check it out. On exam I find evidence of scar tissue but no evidence of reherniation. I also did review her CT images directly with her and shared radiology's impression that there was no significant hernia found. I attempted to provide reassurance that core exercises this far out from surgery should be safe. Red flag warning signs were provided should she experience them. Patient appeared appreciative of this evaluation. Plan: ??? In the absence of any physical exam findings or CT exam findings to suggest reherniation, I provided reassurance that patient is free to continue activity as she wishes ??? Recommended applicatio (more content not included)... Normal [facility] 12 Lead EKGon 02-04-2025 12 Lead EKG [facility] [address] [place] [address] 12 Lead EKG 02/04/25 1122 MR#: [id number] Acct: [id number] Name: BOWEN JONES Rep #: [id number] : 2000 24 From: Migel Borja MD Attending Dr: Status: DEP ER Ordering Dr: Maximo Lew DO Date: 02/04/25 Location: ED Sex: F C Admitted: Test Reason : SYNC Blood Pressure : */* mmHG Vent. Rate : 88 BPM Atrial Rate : 88 BPM P-R Int : 132 ms QRS Dur : 82 ms QT Int : 360 ms P-R-T Axes : 76 81 60 degrees QTcB Int : 435 ms Normal sinus rhythm Normal ECG Confirmed by WESLEY KEMP, CHRISTINA ([id number]), food expeditor ROCK IZAGUIRRE ([id number]) on 02/06/2025 12:59:44 PM Referred By: Confirmed By: CHRISTINA BORJA MD 02/06/25 1259 Date Migel Borja MD CC: LEAD ATG DEVELOPER-C Michelle Bashir; Dr. Maximo Lew DO Signed Normal [facility] Absolute lymphocyte countOrd ered By: Maximo Lew on 02-04-2025 Lymphocytes Auto (Unsp spec) [#/Vol] 1.50 10*3/uL 0.83-4.51 [facility] Absolute neutrophil countOrd ered By: Maximo Lew on 02-04-2025 Neutrophils (Bld) [#/Vol] 6.3 10*3/uL 2.0-7.7 [facility] Anion gap in Serum or Plasma Ordered By: Maximo Lew on 02-04-2025 Anion gap [Moles/Vol] 9 mmol/L 5- [facility] Automated lymphocyte count a s percentage of total leukocytesOrdered By: Maximo Lew on 02-04-2025 Lymphocytes/100 WBC Auto (Unsp spec) 17.1 % Low - [facility] BUN/creatinine ratioOrdered By: Maximo Lew on 02-04-2025 Urea nitrogen/Creatinine [Mass ratio] 10.3 mg/mg 10- [facility] Basic Metabolic Profile (BMP )on 02-04-2025 BUN/CRE 10.3 RATIO Normal - [facility] Comment on above: Performed By: #### L 100.0100, L500.4050, L501.2450, L700.6800 #### [facility] [address] [place], [address] Calcium [Mass/Vol] 8.7 mg/dL Normal 7.6-11.0 [facility] Comment on above: Performed By: #### L 100.0100, L500.4050, L501.2450, L700.6800 #### [facility] [address] [place], [address] Chloride [Moles/Vol] 105 mmol/L Normal 98-108 [facility] Comment on above: Performed By: #### L 100.0100, L500.4050, L501.2450, L700.6800 #### [facility] [address] [place], [address] CO2 [Moles/Vol] 24.7 mmol/L Normal 21.0-32.0 [facility] Comment on above: Performed By: #### L 100.0100, L500.4050, L501.2450, L700.6800 #### [facility] [address] [place], [address] Creatinine [Mass/Vol] 0.76 mg/dL Normal 0.70-1.20 [facility] Comment on above: Performed By: #### L 100.0100, L500.4050, L501.2450, L700.6800 #### [facility] [address] [place], [address] ECRCL 97.71 ml/min Normal 50-250 [facility] Comment on above: Performed By: #### L 100.0100, L500.4050, L501.2450, L700.6800 #### [facility] [address] [place], [address] GAP 9 Normal 5-15 [facility] Comment on above: Performed By: #### L 100.0100, L500.4050, L501.2450, L700.6800 #### [facility] [address] [place], [address] GFR/1.73 sq M.predicted among non-blacks MDRD (S/P/Bld) [Vol rate/Area] 112 mL/min/{1.73_m2} Normal >60 [facility] Comment on above: Result Comment: mL/m in/1.73m2 CKD-EPI Creatinine Equation (2020) Performed By: #### L 100.0100, L500.4050, L501.2450, L700.6800 #### [facility] [address] [place], [address] Glucose [Mass/Vol] 99 mg/dL Normal 70-99 [facility] Comment on above: Performed By: #### L 100.0100, L500.4050, L501.2450, L700.6800 #### [facility] [address] [place], [address] Potassium [Moles/Vol] 4.5 mmol/L Normal 3.3-5.1 [facility] Comment on above: Result Comment: Hemo lysis present, Results??could be affected. ?? Performed By: #### L 100.0100, L500.4050, L501.2450, L700.6800 #### [facility] [address] [place], [address] Sodium [Moles/Vol] 139 mmol/L Normal 133-145 [facility] Comment on above: Performed By: #### L 100.0100, L500.4050, L501.2450, L700.6800 #### [facility] [address] [place], [address] Urea nitrogen [Mass/Vol] 8 mg/dL Normal 4-19 [facility] Comment on above: Performed By: #### L 100.0100, L500.4050, L501.2450, L700.6800 #### [facility] [address] [place], [address] Basophil percentageOrdered B y: Maximo Lew on 02-04-2025 Basophils/100 WBC (Bld) 0.5 % 0-1 [facility] Bilirubin Test strip Ql (U)O rdered By: Maximo Lew on 02-04-2025 Bilirubin Ql (U) Negative Negative [facility] CBC W/Diff, Automatedon 01-18 Absolute Lymph 1.50 X10 3/uL Normal 0.83-4.51 [facility] Comment on above: Performed By: #### L 100.0100, L500.4050, L501.2450, L700.6800 #### [facility] [address] [place], [address] Absolute Neut 6.3 X10 3/uL Normal 2.0-7.7 [facility] Comment on above: Performed By: #### L 100.0100, L500.4050, L501.2450, L700.6800 #### [facility] [address] [place], [address] Basophils/100 WBC (Bld) 0.5 % Normal 0-1 [facility] Comment on above: Performed By: #### L 100.0100, L500.4050, L501.2450, L700.6800 #### [facility] [address] [place], [address] Eosinophils/100 WBC (Bld) 6.5 % High 0-5 [facility] Comment on above: Performed By: #### L 100.0100, L500.4050, L501.2450, L700.6800 #### [facility] [address] [place], [address] Erythrocyte distribution width (RBC) [Ratio] 13.3 % Normal 11.6-14.6 [facility] Comment on above: Performed By: #### L 100.0100, L500.4050, L501.2450, L700.6800 #### [facility] [address] [place], [address] Hematocrit (Bld) [Volume fraction] 41.4 % Normal 37-47 [facility] Comment on above: Performed By: #### L 100.0100, L500.4050, L501.2450, L700.6800 #### [facility] [address] [place], [address] Hemoglobin (Bld) [Mass/Vol] 13.9 g/dL Normal 12.0-15.0 [facility] Comment on above: Performed By: #### L 100.0100, L500.4050, L501.2450, L700.6800 #### [facility] [address] [place], [address] IG% 0.200 Normal 0.0-0.9 [facility] Comment on above: Result Comment: IG% - Immature Granulocytes (promyelocytes, myelocytes and metamyelocytes) > 1% indicates that a LEFT SHIFT is Present. Performed By: #### L 100.0100, L500.4050, L501.2450, L700.6800 #### [facility] [address] [place], [address] Lymphocytes/100 WBC (Bld) 17.1 % Low 19-41 [facility] Comment on above: Performed By: #### L 100.0100, L500.4050, L501.2450, L700.6800 #### [facility] [address] [place], [address] MCH (RBC) [Entitic mass] 31.2 pg Normal 27.0-32.0 [facility] Comment on above: Performed By: #### L 100.0100, L500.4050, L501.2450, L700.6800 #### [facility] [address] [place], [address] MCHC (RBC) [Mass/Vol] 33.6 g/dL Normal 32-36 [facility] Comment on above: Performed By: #### L 100.0100, L500.4050, L501.2450, L700.6800 #### [facility] [address] [place], [address] MCV (RBC) [Entitic vol] 93.0 fL Normal 81-99 [facility] Comment on above: Performed By: #### L 100.0100, L500.4050, L501.2450, L700.6800 #### [facility] [address] [place], [address] Monocytes/100 WBC (Bld) 4.3 % Normal 0-10 [facility] Comment on above: Performed By: #### L 100.0100, L500.4050, L501.2450, L700.6800 #### [facility] [address] [place], [address] Neutrophils/100 WBC (Bld) 71.4 % High 47-70 [facility] Comment on above: Performed By: #### L 100.0100, L500.4050, L501.2450, L700.6800 #### [facility] [address] [place], [address] Nucleated RBC (Bld) [#/Vol] 0 10*3/uL Normal 0-5 [facility] Comment on above: Performed By: #### L 100.0100, L500.4050, L501.2450, L700.6800 #### [facility] [address] [place], [address] Platelet mean volume (Bld) [Entitic vol] 11.5 fL Normal 6.2-12.0 [facility] Comment on above: Performed By: #### L 100.0100, L500.4050, L501.2450, L700.6800 #### [facility] [address] [place], [address] Platelets (Bld) [#/Vol] 197 10*3/uL Normal 150-450 [facility] Comment on above: Performed By: #### L 100.0100, L500.4050, L501.2450, L700.6800 #### [facility] [address] [place], [address] RBC (Bld) [#/Vol] 4.45 10*6/uL Normal 4.2-5.4 [facility] Comment on above: Performed By: #### L 100.0100, L500.4050, L501.2450, L700.6800 #### [facility] [address] [place], [address] RDW SD 45.1 fl High 35.1-43.9 [facility] Comment on above: Performed By: #### L 100.0100, L500.4050, L501.2450, L700.6800 #### [facility] [address] [place], [address] WBC (Bld) [#/Vol] 8.8 10*3/uL Normal 4.4-11.0 [facility] Comment on above: Performed By: #### L 100.0100, L500.4050, L501.2450, L700.6800 #### [facility] [address] [place], [address] Carbon dioxide, total [Moles /volume] in Central venous bloodOrdered By: Maximo Lew on 02-04-2025 CO2 [Moles/Vol] 24.7 mmol/L 21.0-32.0 [facility] Chest PA and Lateralon 02-04 Chest PA and Lateral [facility] Imaging Services [address] [place] [address] Chest PA and Lateral MR#: [id number] Acct: [id number] Name: BOWEN JONES Rep #: [id number] : 2000 F 24 From: Tyron doan MD PCP: Michelle Bashir NP-C Status: REG ER Study: Chest PA and Lateral Date of Exam: 02/04/25 Exam# [id number] Ordering Dr: Maximo Lew DO PROCEDURE: CHEST PA AND LATERAL 02/04/2025 REASON FOR EXAM: SYNCOPE TECHNIQUE: CHEST PA AND LATERAL COMPARISON: Prior study dated January 28, 2025. FINDINGS: Hardware: None Heart: The heart size is normal. Mediastinum: The mediastinal contour is unremarkable. Lungs: The lungs are clear. Bones: RAD/Chest PA and Lateral IMPRESSION: NO ACUTE FINDINGS. Reading Location: [facility] CC: LEAD ATG DEVELOPER-C Michelle Bashir; Dr. Maximo Lew DO Voice And Data Technician: Signed Normal [facility] Chloride assayOrdered By: Brian Lew on 02-04-2025 Chloride [Moles/Vol] 105 mmol/L 98-108 [facility] Emergency Department Summary on 02-04-2025 Emergency Department Summary [facility] Medical Records Department [address] [place] [address] Emergency Department Summary 02/04/25 MR#: [id number] Acct: [id number] Name: BOWEN JONES Rep #: [id number] : 2000 24 From: Maximo Lew DO PCP: DIPESH Goel Status:DEP ER Location: ED HPI History of Present Illness Chief Complaint: Syncope Informant: patient Onset/Context/Sean timmy Onset: Days Context: Sudden Onset Timing: Intermittent Quality: Lightheaded Location: Generalized Worsened by: Nothing Relieved by: Laying down Narrative Narrative: Patient presents with syncopal episode that occurred this morning. Patient states she has been getting lightheaded over the past few days. Patient states this comes and goes. Patient states she feels lightheaded. Patient states if she is able to lay down it gets better. Patient states she noted some tinnitus today. Patient also states she broke into a sweat prior to passing out. Patient denies any palpitations. Patient admits to slight chest pain. Patient also admits to recent upper respiratory infection with some rhinorrhea. Patient denies taking any onet-qyf-hjjbudd decongestants. Patient admits to some nausea but denies any vomiting. Patient admits to a mild headache. [facility] Medical History IUD (intrauterine device) in place Smoker Acute bronchitis Irregular heart beat Migraines Heart palpitations Marijuana use Alcohol use Easy bruising Restless legs Back pain Injury of head and neck Syncope Loss of consciousness Heartburn Bronchitis with influenza Shortness of breath on exertion Vapes nicotine containing substance Leg cramps Hypotension Vaginal delivery SROM (spontaneous rupture of membranes) Anxiety (05/06/24) Home Medications ???Medication ???Instructions ???Recorded ???Last Taken ???Type albuterol sulfate 90 mcg/actuation 1 - 2 puff inhalation Q4H PRN MN N 04/15/20 Unknown Rx aerosol inhaler Wheezing ##1 dicyclomine 10 mg capsule 20 mg (2 x 10 mg) PO TIDAC #20 07/14 Unknown Rx CAPSULES Allergy/AdvReac Type Severity Reaction Status Date / Time No Known Allergies Allergy Verified 02/04/25 11:15 Family History Mother Heart disease Cancer skin Grandmother Hypertension Seizures Thyroid disorder Cancer skin Grandfather Cancer skin Surgical History S/P hernia repair History of umbilical hernia repair [place] teeth removed History of tonsillectomy Social History Smoking Status: Current every day smoker tobacco type: e-cigarettes alcohol intake: never substance use type: does not use ROS ROS ED Constitutional Constitutional ED: Denies chills or fever(s) Eyes Eyes: Denies blurry vision or change in vision ENT ENT ED: Reports rhinorrhea; Denies sore throat Cardiovascular Cardiovascular: Reports chest pain; Denies palpitations Respiratory/Chest Respiratory/Chest: Denies cough or dyspnea Gastrointestinal Gastrointestinal: Reports nausea; Denies vomiting Genitourinary Genitourinary ED: Denies dysuria or hematuria Musculoskeletal Musculoskeletal: Denies back pain or neck pain Integumentary Denies abscess or rash Neurologic Neurologic: Reports headache(s); Denies weakness Allergic/Immunolog ic Allergic/Immunolog ic ED: Denies mouth swelling or urticaria EXAM Physical Exam Const Vital Signs: 02/04/25 11:15 02/04/25 11:15 02/04/25 11:48 Temperature 96.9 F L Temperature Source Temporal Pulse Rate 104 H Pulse Rate [Lying] 71 Pulse Rate [Sitting (for 1 minute prior to obtaining)] 83 Pulse Rate [Standing (for 1 minute prior to obtaining)] 93 Respiratory Rate 16 Respiratory Effort Normal Non-Labored Respiratory Pattern Normal Blood Pressure 131/80 H Blood Pressure [Lying] 120/81 H Blood Pressure [Sitting (for 1 minute prior to obtaining)] 126/75 H Blood Pressure [Standing (for 1 minute prior to obtaining)] 112/87 H Blood Pressure Mean 97 Blood Pressure Mean [Lying] 94 Blood Pressure Mean [Sitting (for 1 minute prior to obtaining)] 92 Blood Pressure Mean [Standing (for 1 minute prior to obtaining)] 95 Pulse Ox 98 Oxygen Delivery Method Room Air 02/04/25 13:15 02/04/25 15:00 02/04/25 16:41 Temperature 98 F Temperature Source Pulse Rate 71 54 L 61 Pulse Rate [Lying] Pulse Rate [Sitting (for 1 minute prior to obtaining)] Pulse Rate [Standing (for 1 minute prior to obtaining)] Respiratory Rate 16 21 H 18 Respiratory Effort Respiratory Pattern Blood Pressure 104/78 109/70 105/74 Blood Pressure [Lying] B (more content not included)... Normal [facility] Eosinophil percentageOrdered By: Maximo Lew on 02-04-2025 Eosinophils/100 WBC (Bld) 6.5 % High 0-5 [facility] Erythrocyte distribution wid th ratioOrdered By: Maximo Lew on 02-04-2025 Erythrocyte distribution width (RBC) [Ratio] 13.3 % 11.6-14.6 [facility] Erythrocyte distribution wid th standard deviationOrdered By: Maximo Lew on 02-04-2025 Erythrocyte distribution width (RBC) [Ratio] 45.1 fl High 35.1-43.9 [facility] Glomerular filtration rate ( GFR) estimation/1.73 sq m using serum, plasma, or whole bOrdered By: Maximo Lew on 02-04-2025 GFR/1.73 sq M.predicted among non-blacks MDRD (S/P/Bld) [Vol rate/Area] 112 mL/min/{1.73_m2} >60 [facility] Comment on above: mL/min/1.73m2 CKD-EP I Creatinine Equation (2020) Hematocrit Auto (Bld) [Volum e fraction]Ordered By: Maximo Lew on 02-04-2025 Hematocrit (Bld) [Volume fraction] 41.4 % 37-47 [facility] Hemoglobin measurementOrdere d By: Maximo Lew on 02-04-2025 Hemoglobin (Bld) [Mass/Vol] 13.9 g/dL 12.0-15.0 [facility] Immature granulocytes/100 WB C Auto (Bld)Ordered By: Maximo Lew on 02-04-2025 Immature granulocytes/100 WBC (Bld) 0.200 % 0.0-0.9 [facility] Comment on above: IG% - Immature Granu locytes (promyelocytes, myelocytes and metamyelocytes) > 1% indicates that a LEFT SHIFT is Present. Ketones Test strip Ql (U)Ord ered By: Maximo Lew on 02-04-2025 Ketones Ql (U) Negative Negative [facility] L499.0042on 02-04-2025 Trop T High Sen < 6 Normal <=14 [facility] Comment on above: Performed By: #### L 100.0100, L500.4050, L501.2450, L700.6800 #### [facility] [address] [place], [address] L499.0043on 02-04-2025 Trop T High Sen Normal <=14 [facility] Comment on above: Result Comment: NOA ENT DISCHARGED Performed By: #### L 100.0100, L500.4050, L501.2450, L700.6800 #### [facility] [address] [place], [address] L501.4021on 02-04-2025 Trop T High Sen < 6 Normal <=14 [facility] Comment on above: Result Comment: Hemo lysis present, Results??could be affected. ?? Performed By: #### L 100.0100, L500.4050, L501.2450, L700.6800 #### [facility] [address] [place], [address] MCV (mean corpuscular volume ) determinationOrdered By: Maximo Lew on 02-04-2025 MCV (RBC) [Entitic vol] 93.0 fL 81-99 [facility] Mean corpuscular hemoglobin (MCH) determinationOrdered By: Maximo Lew on 02-04-2025 MCH (RBC) [Entitic mass] 31.2 pg 27.0-32.0 [facility] Mean corpuscular hemoglobin concentration (MCHC) determinationOrdered By: Maximo Lew on 02-04-2025 MCHC (RBC) [Mass/Vol] 33.6 g/dL 32-36 [facility] Mean platelet volume determi nationOrdered By: Maximo Lew on 02-04-2025 Platelet mean volume (Bld) [Entitic vol] 11.5 fL 6.2-12.0 [facility] Microscopic analysis of urin e for red blood cells (RBC)Ordered By: Maximo Lew on 02-04-2025 Microscopic analysis of urine for red blood cells (RBC) 0 SEEN /hpf 0-5 [facility] Monocyte percentageOrdered B y: Maximo Lew on 02-04-2025 Monocytes/100 WBC (Bld) 4.3 % 0-10 [facility] Mucus LM Ql (Urine sed)Order ed By: Maximo Lew on 02-04-2025 Mucus Ql (Urine sed) 0 SEEN /hpf [facility] Neutrophil percentageOrdered By: Maximo Lew on 02-04-2025 Neutrophils/100 WBC (Bld) 71.4 % High 47-70 [facility] Nitrite Test strip Ql (U)Ord ered By: Maximo Lew on 02-04-2025 Nitrite Ql (U) Negative Negative [facility] Nucleated red blood cell per centageOrdered By: Maximo Lew on 02-04-2025 Nucleated RBC/100 WBC (Bld) [Ratio] 0 % 0-5 [facility] Platelet countOrdered By: Brian Lew on 02-04-2025 Platelets (Bld) [#/Vol] 197 10*3/uL 150-450 [facility] Potassium measurement (mass/ volume)Ordered By: Maximo Lew on 02-04-2025 Potassium (Unsp spec) [Mass/Vol] 4.5 mmol/L 3.3-5.1 [facility] Comment on above: Hemolysis present, R esults could be affected. ,Serum,hCG Quali.on 02-04-2025 HCG, SERUM QUAL Negative Normal [facility] Comment on above: Performed By: #### L 100.0100, L500.4050, L501.2450, L700.6800 #### [facility] [address] [place], [place], [address] Protein Test strip Ql (U)Ord ered By: Maximo Lew on 02-04-2025 Protein Ql (U) Negative Negative [facility] RBC Auto (Bld) [#/Vol]Ordere d By: Maximo Lew on 02-04-2025 RBC (Bld) [#/Vol] 4.45 10*6/uL 4.2-5.4 [facility] Serum beta-hCG test, qualita tiveOrdered By: Maximo Lew on 02-04-2025 Beta HCG ( test) Ql Negative [facility] Serum creatinine measurement (mass/volume)Ordered By: Maximo Lew on 02-04-2025 Creatinine [Mass/Vol] 0.76 mg/dL 0.70-1.20 [facility] Serum glucose measurement (m ass/volume)Ordered By: Maximo Lew on 02-04-2025 Glucose [Mass/Vol] 99 mg/dL 70-99 [facility] Serum or plasma calcium brooks urement (mass/volume)Ordered By: Maximo Lew on 02-04-2025 Calcium [Mass/Vol] 8.7 mg/dL 7.6-11.0 [facility] Serum or plasma urea nitroge n measurement (mass/volume)Ordered By: Maximo Lew on 02-04-2025 Urea nitrogen [Mass/Vol] 8 mg/dL 4-19 [facility] Sodium levelOrdered By: Maximo Lew on 02-04-2025 Sodium [Moles/Vol] 139 mmol/L 133-145 [facility] Squamous epithelial cells de tection in urine sediment by light microscopyOrdered By: Maximo Lew on 02-04-2025 Epithelial cells.squamous LM Ql (Urine sed) 0-5 SEEN /hpf 5-10 [facility] Troponin T.cardiac [Mass/vol ume] in Serum or Plasma by High sensitivity methodOrdered By: Maximo Lew on 02-04-2025 Troponin T.cardiac High sensitivity method [Mass/Vol] < 6 ng/L <14 [facility] Troponin T.cardiac High sensitivity method [Mass/Vol] < 6 ng/L <14 [facility] Comment on above: Hemolysis present, R esults could be affected. Urinalysis, Completeon 02-04 BACTERIA 2+ /hpf Normal None Seen [facility] Comment on above: Order Comment: CLEAN CATCH Performed By: #### L 100.0100, L500.4050, L501.2450, L700.6800 #### [facility] [address] [place], [address] EPI,SQUAMOUS 0-5 SEEN Normal 5-10 [facility] Comment on above: Order Comment: CLEAN CATCH Performed By: #### L 100.0100, L500.4050, L501.2450, L700.6800 #### [facility] [address] [place], [address] WBC 0-5 SEEN Normal 0-5 [facility] Comment on above: Order Comment: CLEAN CATCH Performed By: #### L 100.0100, L500.4050, L501.2450, L700.6800 #### [facility] [address] [place], [address] Mucus Ql (Urine sed) 0 SEEN Normal [facility] Comment on above: Order Comment: CLEAN CATCH Performed By: #### L 100.0100, L500.4050, L501.2450, L700.6800 #### [facility] [address] [place], [address] RBC 0 SEEN Normal 0-5 [facility] Comment on above: Order Comment: CLEAN CATCH Performed By: #### L 100.0100, L500.4050, L501.2450, L700.6800 #### [facility] [address] [place], [address] Urine clarityOrdered By: Clara Lew on 02-04-2025 Clarity (U) Sl. Cloudy Clear [facility] Urine color determinationOrd ered By: Maximo Lew on 02-04-2025 Color (U) Yellow Yellow [facility] Urine glucose detectionOrder ed By: Maximo Lew on 02-04-2025 Glucose Ql (U) Normal mg/dl Normal [facility] Urine leukocyte esterase det ection by dipstickOrdered By: Maximo Lew on 02-04-2025 Leukocyte esterase Test strip Ql (U) 25 /ul High Negative [facility] Urine pHOrdered By: Maximo velez on 02-04-2025 pH (U) 8.0 [pH] 5.0 - 8.0 [facility] Urine sediment bacteria coun t by microscopy (number/high power field)Ordered By: Maximo Lew on 02-04-2025 Bacteria LM.HPF (Urine sed) [#/Area] 2 /[HPF] None Seen [facility] Urine specific gravity measu rementOrdered By: Maximo Lew on 02-04-2025 Specific gravity (U) [Rel density] 1.010 1.002-1.030 [facility] Urine urobilinogen measureme ntOrdered By: Maximo Lew on 02-04-2025 Urobilinogen Ql (U) Normal mg/dl Normal [facility] White blood cell (WBC) count Ordered By: Maximo Lew on 02-04-2025 WBC (Bld) [#/Vol] 8.8 10*3/uL 4.4-11.0 [facility] White blood cell countOrdere d By: Maximo Lew on 02-04-2025 White blood cell count 0-5 SEEN /hpf 0-5 [facility] Absolute lymphocyte countOrd ered By: Blanco Alfaro on 01-28-2025 Lymphocytes Auto (Unsp spec) [#/Vol] 2.02 10*3/uL 0.83-4.51 [facility] Absolute neutrophil countOrd ered By: Blanco Alfaro on 01-28-2025 Neutrophils (Bld) [#/Vol] 5.8 10*3/uL 2.0-7.7 [facility] Acute Abdomen Inc Cheston Acute Abdomen Inc Chest [facility] Imaging Services [address] [place] [address] Acute Abdomen Inc Chest MR#: [id number] Acct: [id number] Name: BOWEN JONES Rep #: [id number] : 2000 F 24 From: Tyron doan MD PCP: DIPESH Goel Status: REG ER Study: Acute Abdomen Inc Chest Date of Exam: 01/28/25 Exam# [id number] Ordering Dr: Blanco Alfaro MD PROCEDURE: ACUTE ABDOMEN INC CHEST 01/28/2025 REASON FOR EXAM: Diffuse abdominal pain. TECHNIQUE: Single view chest with supine and upright views of the abdomen. COMPARISON: None FINDINGS: Hardware: None Heart: The heart size is normal. Lungs: Hyperinflation. The lungs are clear. Bowel gas: Moderate constipation identified with fecal material distributed throughout the colon. No evidence of bowel obstruction. Free air: No free air. Calcifications: No suspicious calcifications. Bones: The bones are unremarkable. Other: IUD is seen within the pelvis. RAD/Acute Abdomen Inc Chest IMPRESSION: Moderate amount of fecal material seen in the colon. IUD is seen within the pelvis. Reading Location: [place] [address] CC: LEAD [employer] DEVELOPER-C Michelle Bashir; Dr. Blanco Alfaro MD Voice And Data Technician: Signed Normal [facility] Anion gap in Serum or Plasma Ordered By: Blanco Alfaro on 01-28-2025 Anion gap [Moles/Vol] 12 mmol/L - [facility] Automated lymphocyte count a s percentage of total leukocytesOrdered By: Blanco Alfaro on 01-28-2025 Lymphocytes/100 WBC Auto (Unsp spec) 23.7 % - [facility] BUN/creatinine ratioOrdered By: Blanco Alfaro on 01-28-2025 Urea nitrogen/Creatinine [Mass ratio] 13.7 mg/mg - [facility] Basic Metabolic Profile (BMP )on 01-28-2025 BUN/CRE 13.7 RATIO Normal - [facility] Comment on above: Performed By: #### L 100.0100, L500.2500 #### [facility] [address] [place], [address] Calcium [Mass/Vol] 8.9 mg/dL Normal 7.6-11.0 [facility] Comment on above: Performed By: #### L 100.0100, L500.2500 #### [facility] [address] [place], [address] Chloride [Moles/Vol] 105 mmol/L Normal 98-108 [facility] Comment on above: Performed By: #### L 100.0100, L500.2500 #### [facility] [address] [place], [address] CO2 [Moles/Vol] 22.4 mmol/L Normal 21.0-32.0 [facility] Comment on above: Performed By: #### L 100.0100, L500.2500 #### [facility] [address] [place], [address] Creatinine [Mass/Vol] 0.72 mg/dL Normal 0.70-1.20 [facility] Comment on above: Performed By: #### L 100.0100, L500.2500 #### [facility] [address] [place], [address] ECRCL 101.95 ml/min Normal 50-250 [facility] Comment on above: Performed By: #### L 100.0100, L500.2500 #### [facility] [address] [place], [address] GAP 12 Normal 5-15 [facility] Comment on above: Performed By: #### L 100.0100, L500.2500 #### [facility] [address] [place], [address] GFR/1.73 sq M.predicted among non-blacks MDRD (S/P/Bld) [Vol rate/Area] 119 mL/min/{1.73_m2} Normal >60 [facility] Comment on above: Result Comment: mL/m in/1.73m2 CKD-EPI Creatinine Equation (2020) Performed By: #### L 100.0100, L500.2500 #### [facility] [address] [place], [address] Glucose [Mass/Vol] 88 mg/dL Normal 70-99 [facility] Comment on above: Performed By: #### L 100.0100, L500.2500 #### [facility] [address] [place], [address] Potassium [Moles/Vol] 3.8 mmol/L Normal 3.3-5.1 [facility] Comment on above: Performed By: #### L 100.0100, L500.2500 #### [facility] [address] [place], [address] Sodium [Moles/Vol] 139 mmol/L Normal 133-145 [facility] Comment on above: Performed By: #### L 100.0100, L500.2500 #### [facility] [address] [place], [address] Urea nitrogen [Mass/Vol] 10 mg/dL Normal 4-19 [facility] Comment on above: Performed By: #### L 100.0100, L500.2500 #### [facility] [address] [place], [address] Basophil percentageOrdered B y: Blanco Alfaro on 01-28-2025 Basophils/100 WBC (Bld) 0.5 % 0-1 [facility] Bilirubin Test strip Ql (U)O rdered By: Blanco Alfaro on 01-28-2025 Bilirubin Ql (U) Negative Negative [facility] CBC W/Diff, Automatedon 01-18 Absolute Lymph 2.02 X10 3/uL Normal 0.83-4.51 [facility] Comment on above: Performed By: #### L 100.0100, L500.2500 #### [facility] [address] [place], [address] Absolute Neut 5.8 X10 3/uL Normal 2.0-7.7 [facility] Comment on above: Performed By: #### L 100.0100, L500.2500 #### [facility] [address] [place], [address] Basophils/100 WBC (Bld) 0.5 % Normal 0-1 [facility] Comment on above: Performed By: #### L 100.0100, L500.2500 #### [facility] [address] [place], [address] Eosinophils/100 WBC (Bld) 2.2 % Normal 0-5 [facility] Comment on above: Performed By: #### L 100.0100, L500.2500 #### [facility] [address] [place], [address] Erythrocyte distribution width (RBC) [Ratio] 13.1 % Normal 11.6-14.6 [facility] Comment on above: Performed By: #### L 100.0100, L500.2500 #### [facility] [address] [place], [address] Hematocrit (Bld) [Volume fraction] 40.1 % Normal 37-47 [facility] Comment on above: Performed By: #### L 100.0100, L500.2500 #### [facility] [address] [place], [address] Hemoglobin (Bld) [Mass/Vol] 13.6 g/dL Normal 12.0-15.0 [facility] Comment on above: Performed By: #### L 100.0100, L500.2500 #### [facility] [address] [place], [address] IG% 0.400 Normal 0.0-0.9 [facility] Comment on above: Result Comment: IG% - Immature Granulocytes (promyelocytes, myelocytes and metamyelocytes) > 1% indicates that a LEFT SHIFT is Present. Performed By: #### L 100.0100, L500.2500 #### [facility] [address] [place], [address] Lymphocytes/100 WBC (Bld) 23.7 % Normal 19-41 [facility] Comment on above: Performed By: #### L 100.0100, L500.2500 #### [facility] [address] [place], [address] MCH (RBC) [Entitic mass] 30.7 pg Normal 27.0-32.0 [facility] Comment on above: Performed By: #### L 100.0100, L500.2500 #### [facility] [address] [place], [address] MCHC (RBC) [Mass/Vol] 33.9 g/dL Normal 32-36 [facility] Comment on above: Performed By: #### L 100.0100, L500.2500 #### [facility] [address] [place] [place], [address] MCV (RBC) [Entitic vol] 90.5 fL Normal 81-99 [facility] Comment on above: Performed By: #### L 100.0100, L500.2500 #### [facility] [address] [place], [address] Monocytes/100 WBC (Bld) 4.9 % Normal 0-10 [facility] Comment on above: Performed By: #### L 100.0100, L500.2500 #### [facility] [address] [place], [address] Neutrophils/100 WBC (Bld) 68.3 % Normal 47-70 [facility] Comment on above: Performed By: #### L 100.0100, L500.2500 #### [facility] [address] [place], [address] Nucleated RBC (Bld) [#/Vol] 0 10*3/uL Normal 0-5 [facility] Comment on above: Performed By: #### L 100.0100, L500.2500 #### [facility] [address] [place], [address] Platelet mean volume (Bld) [Entitic vol] 10.5 fL Normal 6.2-12.0 [facility] Comment on above: Performed By: #### L 100.0100, L500.2500 #### [facility] [address] [place], [address] Platelets (Bld) [#/Vol] 214 10*3/uL Normal 150-450 [facility] Comment on above: Performed By: #### L 100.0100, L500.2500 #### [facility] [address] [place], [address] RBC (Bld) [#/Vol] 4.43 10*6/uL Normal 4.2-5.4 [facility] Comment on above: Performed By: #### L 100.0100, L500.2500 #### [facility] [address] [place], [address] RDW SD 43.3 fl Normal 35.1-43.9 [facility] Comment on above: Performed By: #### L 100.0100, L500.2500 #### [facility] [address] [place], [address] WBC (Bld) [#/Vol] 8.5 10*3/uL Normal 4.4-11.0 [facility] Comment on above: Performed By: #### L 100.0100, L500.2500 #### [facility] [address] [place], [address] Carbon dioxide, total [Moles /volume] in Central venous bloodOrdered By: Blanco Alfaro on 01-28-2025 CO2 [Moles/Vol] 22.4 mmol/L 21.0-32.0 [facility] Chloride assayOrdered By: Eliud Alfaro on 01-28-2025 Chloride [Moles/Vol] 105 mmol/L 98-108 [facility] Emergency Department Summary on 01-28-2025 Emergency Department Summary [facility] Medical Records Department [address] [place] [address] Emergency Department Summary 01/28/25 MR#: [id number] Acct: [id number] Name: BOWEN JONES Rep #: [id number] : 2000 From: Blanco Alfaro MD PCP: DIPESH Goel Status:REG ER Location: ED HPI History of Present Illness Chief Complaint: Abd Pain Detail of Chief Complaint: Predominantly central abdominal pain that is worse with stretching and wors Informant: patient Onset/Context/Sean ng Onset: Month(s) (1 month) Context: Gradual Onset Timing: Intermittent and Waxes and wanes Quality: Fullness, stretching discomfort supraumbilical Location: Supraumbilical Current Severity: Mild Maximum Severity: Moderate Worsened by: Foods in general when she feels bloated and when she stretches. Relieved by: Nothing Associated Symptoms Associated Symptoms: Nausea. Patient's last bowel movement was normal. Narrative Narrative: Patient is a 24-year-old female. She had surgery by Dr. Qureshi for hernia. Office follow-up visit was reviewed. This visit was May 2024. Patient had surgery for epigastric reducible hernia April 2024. There was fat contained in the hernia. Patient stated that she had triple hernia repair. Review of records indicates surgery occurred in April. She had 2 visits for postoperative pain May 10, 2024 and June 01, 2024 and reports were authored by Dr. Nii Jiménez and Dr. Maximo Manning. She was recently seen for abdominal pain by Dr. Marilyn Simpson on December 18. The CAT scan revealed an IUD to be in position. Patient states her last menses was not normal. The IUD was placed a couple of months ago. There was no abnormal findings noted by radiologist and by diet. Because review of the scan. Patient now presents with supraumbilical midline and pain that is worse with eating anything and when she stretches. She has had no nausea, vomiting or diarrhea. She is not constipated. She denies dysuria, frequency, urgency or hematuria. She has no respiratory symptoms. There is no history of trauma. She has been released to return to work with no restrictions. Prior similar symptoms: Yes Recent Illness/Hospitaliz ation: No PFSH PFSH Medical History IUD (intrauterine device) in place Smoker Acute bronchitis Irregular heart beat Migraines Heart palpitations Marijuana use Alcohol use Easy bruising Restless legs Back pain Injury of head and neck Syncope Loss of consciousness Heartburn Bronchitis with influenza Shortness of breath on exertion Vapes nicotine containing substance Leg cramps Hypotension Vaginal delivery SROM (spontaneous rupture of membranes) Anxiety (05/06/24) Home Medications ???Medication ???Instructions ???Recorded ???Last Taken ???Type albuterol sulfate 90 mcg/actuation 1 - 2 puff inhalation Q4H PRN MN N 04/15/20 Unknown Rx aerosol inhaler Wheezing ##1 dicyclomine 10 mg capsule 20 mg (2 x 10 mg) PO TIDAC #20 07/14 Unknown Rx CAPSULES Allergy/AdvReac Type Severity Reaction Status Date / Time No Known Allergies Allergy Verified 12/18/24 10:34 Family History Mother Heart disease Cancer skin Grandmother Hypertension Seizures Thyroid disorder Cancer skin Grandfather Cancer skin Surgical History S/P hernia repair History of umbilical hernia repair [place] teeth removed History of tonsillectomy Social History Smoking Status: Former smoker alcohol intake: never substance use type: does not use ROS ROS ED Constitutional Constitutional ED: Denies chills, fever(s), subjective, sweats or weight loss Cardiovascular Cardiovascular: Denies chest pain or palpitations Respiratory/Chest Respiratory/Chest: Denies cough, dyspnea or dyspnea on exertion Gastrointestinal Gastrointestinal: Reports abdominal pain and nausea; Denies constipation, diarrhea, melena or vomiting Genitourinary Genitourinary ED: Denies dysuria, hematuria or urinary frequency Musculoskeletal Musculoskeletal: Denies arthralgias, back pain, myalgias or neck pain Integumentary Denies rash Neurologic Neurologic: Denies weakness Hematologic/Lympha tic Hematologic/Lympha tic: Reports systems reviewed and no addt'l complaints, except as documented EXAM Physical Exam Const Vital Signs: 01/28/25 11:11 01/28/25 13:12 01/28/25 15:00 Temperature 97.8 F Temperature Source Oral Pulse Rate 88 84 84 Respiratory Rate 16 18 16 Blood Pressure 147/93 H 141/92 H Blood Pressure Mean 111 108 Pulse Ox 99 100 100 Oxygen Delivery Method Room Air Room Air Room Air Positive well nourish (more content not included)... Normal [facility] Eosinophil percentageOrdered By: Blanco Alfaro on 01-28-2025 Eosinophils/100 WBC (Bld) 2.2 % 0-5 [facility] Erythrocyte distribution wid th ratioOrdered By: Blanco Alfaro on 01-28-2025 Erythrocyte distribution width (RBC) [Ratio] 13.1 % 11.6-14.6 [facility] Erythrocyte distribution wid th standard deviationOrdered By: Blancojeana Alfaro on 01-28-2025 Erythrocyte distribution width (RBC) [Ratio] 43.3 fl 35.1-43.9 [facility] Glomerular filtration rate ( GFR) estimation/1.73 sq m using serum, plasma, or whole bOrdered By: Blanco Alfaro on 01-28-2025 GFR/1.73 sq M.predicted among non-blacks MDRD (S/P/Bld) [Vol rate/Area] 119 mL/min/{1.73_m2} >60 [facility] Comment on above: mL/min/1.73m2 CKD-EP I Creatinine Equation (2020) Hematocrit Auto (Bld) [Volum e fraction]Ordered By: Blanco Alfaro on 01-28-2025 Hematocrit (Bld) [Volume fraction] 40.1 % 37-47 [facility] Hemoglobin measurementOrdere d By: Blanco Alfaro on 01-28-2025 Hemoglobin (Bld) [Mass/Vol] 13.6 g/dL 12.0-15.0 [facility] Immature granulocytes/100 WB C Auto (Bld)Ordered By: Blanco Alfaro on 01-28-2025 Immature granulocytes/100 WBC (Bld) 0.400 % 0.0-0.9 [facility] Comment on above: IG% - Immature Granu locytes (promyelocytes, myelocytes and metamyelocytes) > 1% indicates that a LEFT SHIFT is Present. Ketones Test strip Ql (U)Ord ered By: Blanco Alfaro on 01-28-2025 Ketones Ql (U) Negative Negative [facility] MCV (mean corpuscular volume ) determinationOrdered By: Blanco Alfaro on 01-28-2025 MCV (RBC) [Entitic vol] 90.5 fL 81-99 [facility] Mean corpuscular hemoglobin (MCH) determinationOrdered By: Blanco Alfaro on 01-28-2025 MCH (RBC) [Entitic mass] 30.7 pg 27.0-32.0 [facility] Mean corpuscular hemoglobin concentration (MCHC) determinationOrdered By: Blanco Alfaro on 01-28-2025 MCHC (RBC) [Mass/Vol] 33.9 g/dL 32-36 [facility] Mean platelet volume determi nationOrdered By: Blanco Alfaro on 01-28-2025 Platelet mean volume (Bld) [Entitic vol] 10.5 fL 6.2-12.0 [facility] Microscopic analysis of urin e for red blood cells (RBC)Ordered By: Blanco Alfaro on 01-28-2025 Microscopic analysis of urine for red blood cells (RBC) 0-5 SEEN /hpf 0-5 [facility] Monocyte percentageOrdered B y: Blanco Alfaro on 01-28-2025 Monocytes/100 WBC (Bld) 4.9 % 0-10 [facility] Mucus LM Ql (Urine sed)Order ed By: Blanco Alfaro on 01-28-2025 Mucus Ql (Urine sed) 0 SEEN /hpf [facility] Neutrophil percentageOrdered By: Blanco Alfaro on 01-28-2025 Neutrophils/100 WBC (Bld) 68.3 % 47-70 [facility] Nitrite Test strip Ql (U)Ord ered By: Blanco Alfaro on 01-28-2025 Nitrite Ql (U) Negative Negative [facility] Nucleated red blood cell per centageOrdered By: Blanco Alfaro on 01-28-2025 Nucleated RBC/100 WBC (Bld) [Ratio] 0 % 0-5 [facility] Platelet countOrdered By: Eliud Alfaro on 01-28-2025 Platelets (Bld) [#/Vol] 214 10*3/uL 150-450 [facility] Potassium measurement (mass/ volume)Ordered By: Blanco Alfaro on 01-28-2025 Potassium (Unsp spec) [Mass/Vol] 3.8 mmol/L 3.3-5.1 [facility] ,Urineon 01-28-2025 Beta HCG ( test) Ql (U) Negative Normal [facility] Comment on above: Result Comment: Very dilute urine specimens, as indicated by a low specific gravity, may not contain safety representative levels of hCG. If is still suspected, a first morning urine specimen should be collected 48 hours later and tested. Performed By: #### L 100.0100, L500.4050, L501.2450, L700.6800 #### [facility] [address] [place] [address], [address] Protein Test strip Ql (U)Ord ered By: Blanco Alfaro on 01-28-2025 Protein Ql (U) 15 mg/dl High Negative [facility] RBC Auto (Bld) [#/Vol]Ordere d By: Blanco Alfaro on 01-28-2025 RBC (Bld) [#/Vol] 4.43 10*6/uL 4.2-5.4 [facility] Serum creatinine measurement (mass/volume)Ordered By: Blanco Alfaro on 01-28-2025 Creatinine [Mass/Vol] 0.72 mg/dL 0.70-1.20 [facility] Serum glucose measurement (m ass/volume)Ordered By: Blanco Alfaro on 01-28-2025 Glucose [Mass/Vol] 88 mg/dL 70-99 [facility] Serum or plasma calcium brooks urement (mass/volume)Ordered By: Blanco Alfaro on 01-28-2025 Calcium [Mass/Vol] 8.9 mg/dL 7.6-11.0 [facility] Serum or plasma urea nitroge n measurement (mass/volume)Ordered By: Blanco Alfaro on 01-28-2025 Urea nitrogen [Mass/Vol] 10 mg/dL 4-19 [facility] Sodium levelOrdered By: Blanco Alfaro on 01-28-2025 Sodium [Moles/Vol] 139 mmol/L 133-145 [facility] Squamous epithelial cells de tection in urine sediment by light microscopyOrdered By: Blanco Alfaro on 01-28-2025 Epithelial cells.squamous LM Ql (Urine sed) 5-10 SEEN /hpf 5-10 [facility] Urinalysis complete panel - Urineon 01-28-2025 Urinalysis complete panel (U) [facility] Urinalysis, Completeon 01-28 EPI,SQUAMOUS 0 SEEN Normal 5- [facility] Comment on above: Order Comment: CLEAN CATCH Result Comment: This specimen has been REJECTED due to Laboratory criteria: Duplicate Order. HOA SEBASTIAN has been notified OF DUPLICATE ORDER, SHE AUTHORIZED CANCELLATION. 01/28/25 1508 Marline Adair Performed By: #### L 100.0100, L500.4050, L501.2450, L700.6800 #### [facility] [address] [facility] [place], [address] RBC 0 SEEN Normal 0-5 [facility] Comment on above: Order Comment: CLEAN CATCH Result Comment: This specimen has been REJECTED due to Laboratory criteria: Duplicate Order. HOAOmari CORTES has been notified OF DUPLICATE ORDER, SHE AUTHORIZED CANCELLATION. 01/28/25 1508 Marline Adair Performed By: #### L 100.0100, L500.4050, L501.2450, L700.6800 #### [facility] [address] [facility] [place], [address] WBC 0 SEEN Normal 0-5 [facility] Comment on above: Order Comment: CLEAN CATCH Result Comment: This specimen has been REJECTED due to Laboratory criteria: Duplicate Order. HOA CORTES has been notified OF DUPLICATE ORDER, SHE AUTHORIZED CANCELLATION. 01/28/25 1508 Marline Adair Performed By: #### L 100.0100, L500.4050, L501.2450, L700.6800 #### [facility] [address] [place], [address] RBC 0-5 SEEN Normal 0-5 [facility] Comment on above: Order Comment: CLEAN CATCH Performed By: #### L 100.0100, L500.4050, L501.2450, L700.6800 #### [facility] [address] [place], [address] WBC 0-5 SEEN Normal 0-5 [facility] Comment on above: Order Comment: CLEAN CATCH Performed By: #### L 100.0100, L500.4050, L501.2450, L700.6800 #### [facility] [address] [place], [address] EPI,SQUAMOUS 5-10 SEEN Normal 5-10 [facility] Comment on above: Order Comment: CLEAN CATCH Performed By: #### L 100.0100, L500.4050, L501.2450, L700.6800 #### [facility] [address] [place], [address] BACTERIA 0 SEEN Normal None Seen [facility] Comment on above: Order Comment: CLEAN CATCH Result Comment: This specimen has been REJECTED due to Laboratory criteria: Duplicate Order. HOA CORTES has been notified OF DUPLICATE ORDER, SHE AUTHORIZED CANCELLATION. 01/28/25 1508 Marline Adair Performed By: #### L 100.0100, L500.4050, L501.2450, L700.6800 #### [facility] [address] [place], [address] Mucus Ql (Urine sed) 0 SEEN Normal [facility] Comment on above: Order Comment: CLEAN CATCH Result Comment: This specimen has been REJECTED due to Laboratory criteria: Duplicate Order. HOA CORTES has been notified OF DUPLICATE ORDER, SHE AUTHORIZED CANCELLATION. 01/28/25 1508 Marline Giovany Performed By: #### L 100.0100, L500.4050, L501.2450, L700.6800 #### [facility] [address] [place], [address] BILIRUBIN URINE Normal Negative [facility] Comment on above: Order Comment: CLEAN CATCH Result Comment: This specimen has been REJECTED due to Laboratory criteria: Duplicate Order. HOA CORTES has been notified OF DUPLICATE ORDER, SHE AUTHORIZED CANCELLATION. 01/28/25 1508 Marline Giovany Performed By: #### L 100.0100, L500.4050, L501.2450, L700.6800 #### [facility] [address] [place], [address] Clarity (U) Normal Clear [facility] Comment on above: Order Comment: CLEAN CATCH Result Comment: This specimen has been REJECTED due to Laboratory criteria: Duplicate Order. HOA SELF has been notified OF DUPLICATE ORDER, SHE AUTHORIZED CANCELLATION. 01/28/25 1508 Marline Giovany Performed By: #### L 100.0100, L500.4050, L501.2450, L700.6800 #### [facility] [address] [place], [address] Color (U) Normal Yellow [facility] Comment on above: Order Comment: CLEAN CATCH Result Comment: This specimen has been REJECTED due to Laboratory criteria: Duplicate Order. HOA SELF has been notified OF DUPLICATE ORDER, SHE AUTHORIZED CANCELLATION. 01/28/25 1508 Marline Giovany Performed By: #### L 100.0100, L500.4050, L501.2450, L700.6800 #### [facility] [address] [place], [address] GLUCOSE, UR Normal Normal [facility] Comment on above: Order Comment: CLEAN CATCH Result Comment: This specimen has been REJECTED due to Laboratory criteria: Duplicate Order. HOA SELF has been notified OF DUPLICATE ORDER, SHE AUTHORIZED CANCELLATION. 01/28/25 1508 Marline Giovany Performed By: #### L 100.0100, L500.4050, L501.2450, L700.6800 #### [facility] [address] [place], [address] KETONE UR Normal Negative [facility] Comment on above: Order Comment: CLEAN CATCH Result Comment: This specimen has been REJECTED due to Laboratory criteria: Duplicate Order. HOA SELF has been notified OF DUPLICATE ORDER, SHE AUTHORIZED CANCELLATION. 01/28/25 1508 Marline Giovany Performed By: #### L 100.0100, L500.4050, L501.2450, L700.6800 #### [facility] [address] [place], [address] LEUK ESTERASE Normal Negative [facility] Comment on above: Order Comment: CLEAN CATCH Result Comment: This specimen has been REJECTED due to Laboratory criteria: Duplicate Order. HOA SELF has been notified OF DUPLICATE ORDER, SHE AUTHORIZED CANCELLATION. 01/28/25 1508 Marline Giovany Performed By: #### L 100.0100, L500.4050, L501.2450, L700.6800 #### [facility] [address] [place], [address] Nitrite Ql (U) Normal Negative [facility] Comment on above: Order Comment: CLEAN CATCH Result Comment: This specimen has been REJECTED due to Laboratory criteria: Duplicate Order. HOA SELF has been notified OF DUPLICATE ORDER, SHE AUTHORIZED CANCELLATION. 01/28/25 1508 Marline Giovany Performed By: #### L 100.0100, L500.4050, L501.2450, L700.6800 #### [facility] [address] [place], [address] OCCULT BLOOD-UR Normal Negative [facility] Comment on above: Order Comment: CLEAN CATCH Result Comment: This specimen has been REJECTED due to Laboratory criteria: Duplicate Order. HOA SELF has been notified OF DUPLICATE ORDER, SHE AUTHORIZED CANCELLATION. 01/28/25 1508 Marline Giovany Performed By: #### L 100.0100, L500.4050, L501.2450, L700.6800 #### [facility] [address], [address] pH UR Normal 5.0 - 8.0 [facility] Comment on above: Order Comment: CLEAN CATCH Result Comment: This specimen has been REJECTED due to Laboratory criteria: Duplicate Order. HOA CORTES has been notified OF DUPLICATE ORDER, SHE AUTHORIZED CANCELLATION. 01/28/25 1508 Marline Giovany Performed By: #### L 100.0100, L500.4050, L501.2450, L700.6800 #### [facility] [address] [place], [address] PROT DIPSTX Normal Negative [facility] Comment on above: Order Comment: CLEAN CATCH Result Comment: This specimen has been REJECTED due to Laboratory criteria: Duplicate Order. HOA CORTES has been notified OF DUPLICATE ORDER, SHE AUTHORIZED CANCELLATION. 01/28/25 1508 Marline Giovany Performed By: #### L 100.0100, L500.4050, L501.2450, L700.6800 #### [facility] [address] [place], [address] SP.GR. DIPSTX Normal 1.002-1.030 [facility] Comment on above: Order Comment: CLEAN CATCH Result Comment: This specimen has been REJECTED due to Laboratory criteria: Duplicate Order. HOA SELF has been notified OF DUPLICATE ORDER, SHE AUTHORIZED CANCELLATION. 01/28/25 1508 Marline Giovany Performed By: #### L 100.0100, L500.4050, L501.2450, L700.6800 #### [facility] [address] [place], [address] UR Preservative Normal [facility] Comment on above: Order Comment: CLEAN CATCH Result Comment: This specimen has been REJECTED due to Laboratory criteria: Duplicate Order. HOA SELF has been notified OF DUPLICATE ORDER, SHE AUTHORIZED CANCELLATION. 01/28/25 1508 Marline Adair Performed By: #### L 100.0100, L500.4050, L501.2450, L700.6800 #### [facility] [address] [place], [address] UROBILI Normal Normal [facility] Comment on above: Order Comment: CLEAN CATCH Result Comment: This specimen has been REJECTED due to Laboratory criteria: Duplicate Order. HOA SEBASTIAN has been notified OF DUPLICATE ORDER, SHE AUTHORIZED CANCELLATION. 01/28/25 1508 Marline Adair Performed By: #### L 100.0100, L500.4050, L501.2450, L700.6800 #### [facility] [address] [place], [address] Urine clarityOrdered By: Blanco Alfaro on 01-28-2025 Clarity (U) Clear Clear [facility] Urine color determinationOrd ered By: Blanco Alfaro on 01-28-2025 Color (U) Straw Yellow [facility] Urine glucose detectionOrder ed By: Blanco Alfaro on 01-28-2025 Glucose Ql (U) Normal mg/dl Normal [facility] Urine leukocyte esterase det ection by dipstickOrdered By: Blanco Alfaro on 01-28-2025 Leukocyte esterase Test strip Ql (U) Negative Negative [facility] Urine pHOrdered By: Blanco argueta on 01-28-2025 pH (U) 8.0 [pH] 5.0 - 8.0 [facility] Urine testOrdered By: Blanco Alfaro on 01-28-2025 HCG ( test) Ql (U) Negative [facility] Comment on above: Very dilute urine sp ecimens, as indicated by a low specificgravity, may not contain safety representative levels of hCG. If is still suspected, a first morning urinespecimen should be collected 48 hours later and tested. Urine sediment bacteria coun t by microscopy (number/high power field)Ordered By: Blanco Alfaro on 01-28-2025 Bacteria LM.HPF (Urine sed) [#/Area] 0 /[HPF] None Seen [facility] Urine specific gravity measu rementOrdered By: Blanco Alfaro on 01-28-2025 Specific gravity (U) [Rel density] 1.015 1.002-1.030 [facility] Urine urobilinogen measureme ntOrdered By: Blancojeana Alfaro on 01-28-2025 Urobilinogen Ql (U) 1 mg/dl High Normal [facility] White blood cell (WBC) count Ordered By: Blanco Alfaro on 01-28-2025 WBC (Bld) [#/Vol] 8.5 10*3/uL 4.4-11.0 [facility] White blood cell countOrdere d By: Blanco Alfaro on 01-28-2025 White blood cell count 0-5 SEEN /hpf 0-5 [facility] Abdomen/Pelvis W IV Cont ONL Yon 12-18-2024 Abdomen/Pelvis W IV Cont ONLY [facility] Services [address] [place], [place] [address] Abdomen/Pelvis W IV Cont ONLY MR#: [id number] Acct: [id number] Name: BOWEN JONES Rep #: [id number] : 2000 F 24 From: Joaquín Concepcion MD PCP: DIPESH Goel Status: [facility] ER Study: Abdomen/Pelvis W IV Cont ONLY Date of Exam: Exam# [id number] Ordering Dr: Linden Wallace MD PROCEDURE: ABDOMEN/PELVIS W IV CONT ONLY 12/18/2024 REASON FOR EXAM: PERIUMBILICAL PAIN HISTORY OF HERNIA TECHNIQUE: Abdomen and pelvis CT with intravenous contrast. Coronal and Sagittal reconstruction series were provided. PATIENT PREPARATION: Per protocol ORAL CONTRAST TYPE: None. CONTRAST: 100 cc Isovue-300 One or more dose reduction techniques were used (e.g., Automated exposure control, adjustment of the mA and/or kV according to patient size, use of iterative reconstruction technique. RADIATION DOSE SUMMARY: DLP: 295.0 mGycm COMPARISON: June 01, 2024 FINDINGS: Lung bases: Clear Liver: Unremarkable Gallbladder: Contracted Spleen: Unremarkable Pancreas: Unremarkable Adrenals: Unremarkable Kidneys: Unremarkable Bladder: Unremarkable Reproductive Organs: An IUD is noted in the mid uterus. Bowel: Appendix: Within normal limits, coronal image 38/101. Lymph nodes: There is no visible pathologic adenopathy by size criteria. Vasculature: Unremarkable Peritoneum / Retroperitoneum: There is no free air or free fluid. There is no significant hernia identified. Bones: There is no acute bony abnormality. CT/Abdomen/Pelvis W IV Cont ONLY IMPRESSION: There is an IUD in position. No acute abnormality is identified in the abdomen or pelvis. Reading Location: [facility] CC: DIPESH Bashir; Dr. Linden Wallace MD Voice And Data Technician: Signed Normal [facility] Absolute lymphocyte countOrd ered By: Linden Wallace on 12-18-2024 Lymphocytes Auto (Unsp spec) [#/Vol] 2.34 10*3/uL 0.83-4.51 [facility] Absolute neutrophil countOrd ered By: Linden Wallace on 12-18-2024 Neutrophils (Bld) [#/Vol] 6.0 10*3/uL 2.0-7.7 [facility] Anion gap in Serum or Plasma Ordered By: Linden Wallace on 12-18-2024 Anion gap [Moles/Vol] 9 mmol/L 5-15 [facility] Automated lymphocyte count a s percentage of total leukocytesOrdered By: Linden Wlalace on 12-18-2024 Lymphocytes/100 WBC Auto (Unsp spec) 25.5 % 19-41 [facility] BUN/creatinine ratioOrdered By: Linden Wallace on 12-18-2024 Urea nitrogen/Creatinine [Mass ratio] 14.2 mg/mg 10- [facility] Basic Metabolic Profile (BMP )on 12-18-2024 BUN/CRE 14.2 RATIO Normal - [facility] Comment on above: Performed By: #### L 700.6800, L500.2500, L100.0100 #### [facility] [address] [place], [place], [address] Calcium [Mass/Vol] 9.0 mg/dL Normal 7.6-11.0 [facility] Comment on above: Performed By: #### L 700.6800, L500.2500, L100.0100 #### [facility] [address] [place], [address] Chloride [Moles/Vol] 104 mmol/L Normal 98-108 [facility] Comment on above: Performed By: #### L 700.6800, L500.2500, L100.0100 #### [facility] [address] [place], [address] CO2 [Moles/Vol] 25.6 mmol/L Normal 21.0-32.0 [facility] Comment on above: Performed By: #### L 700.6800, L500.2500, L100.0100 #### [facility] [address] [place], [address] Creatinine [Mass/Vol] 0.79 mg/dL Normal 0.70-1.20 [facility] Comment on above: Performed By: #### L 700.6800, L500.2500, L100.0100 #### [facility] [address] [place], [address] ECRCL 90.05 ml/min Normal 50-250 [facility] Comment on above: Performed By: #### L 700.6800, L500.2500, L100.0100 #### [facility] [address] [place], [address] GAP 9 Normal 5-15 [facility] Comment on above: Performed By: #### L 700.6800, L500.2500, L100.0100 #### [facility] [address] [place], [address] GFR/1.73 sq M.predicted among non-blacks MDRD (S/P/Bld) [Vol rate/Area] 106 mL/min/{1.73_m2} Normal >60 [facility] Comment on above: Result Comment: mL/m in/1.73m2 CKD-EPI Creatinine Equation (2020) Performed By: #### L 700.6800, L500.2500, L100.0100 #### [facility] [address] [place], [address] Glucose [Mass/Vol] 59 mg/dL Low 70-99 [facility] Comment on above: Performed By: #### L 700.6800, L500.2500, L100.0100 #### [facility] [address] [place], [address] Potassium [Moles/Vol] 3.9 mmol/L Normal 3.3-5.1 [facility] Comment on above: Performed By: #### L 700.6800, L500.2500, L100.0100 #### [facility] [address] [place], [address] Sodium [Moles/Vol] 138 mmol/L Normal 133-145 [facility] Comment on above: Performed By: #### L 700.6800, L500.2500, L100.0100 #### [facility] [address] [place], [address] Urea nitrogen [Mass/Vol] 11 mg/dL Normal 4-19 [facility] Comment on above: Performed By: #### L 700.6800, L500.2500, L100.0100 #### [facility] [address] [place], [address] Basophil percentageOrdered B y: Linden Wallace on 12-18-2024 Basophils/100 WBC (Bld) 0.4 % 0-1 [facility] CBC W/Diff, Automatedon Absolute Lymph 2.34 X10 3/uL Normal 0.83-4.51 [facility] Comment on above: Performed By: #### L 700.6800, L500.2500, L100.0100 #### [facility] [address] [place], [address] Absolute Neut 6.0 X10 3/uL Normal 2.0-7.7 [facility] Comment on above: Performed By: #### L 700.6800, L500.2500, L100.0100 #### [facility] [address] [place], [address] Basophils/100 WBC (Bld) 0.4 % Normal 0-1 [facility] Comment on above: Performed By: #### L 700.6800, L500.2500, L100.0100 #### [facility] [address] [place], [address] Eosinophils/100 WBC (Bld) 2.7 % Normal 0-5 [facility] Comment on above: Performed By: #### L 700.6800, L500.2500, L100.0100 #### [facility] [address] [place], [address] Erythrocyte distribution width (RBC) [Ratio] 13.3 % Normal 11.6-14.6 [facility] Comment on above: Performed By: #### L 700.6800, L500.2500, L100.0100 #### [facility] [address] [place], [address] Hematocrit (Bld) [Volume fraction] 44.4 % Normal 37-47 [facility] Comment on above: Performed By: #### L 700.6800, L500.2500, L100.0100 #### [facility] [address] [place], [address] Hemoglobin (Bld) [Mass/Vol] 14.7 g/dL Normal 12.0-15.0 [facility] Comment on above: Performed By: #### L 700.6800, L500.2500, L100.0100 #### [facility] [address] [place], [address] IG% 0.300 Normal 0.0-0.9 [facility] Comment on above: Result Comment: IG% - Immature Granulocytes (promyelocytes, myelocytes and metamyelocytes) > 1% indicates that a LEFT SHIFT is Present. Performed By: #### L 700.6800, L500.2500, L100.0100 #### [facility] [address] [place], [address] Lymphocytes/100 WBC (Bld) 25.5 % Normal 19-41 [facility] Comment on above: Performed By: #### L 700.6800, L500.2500, L100.0100 #### [facility] [address] [place], [address] MCH (RBC) [Entitic mass] 30.8 pg Normal 27.0-32.0 [facility] Comment on above: Performed By: #### L 700.6800, L500.2500, L100.0100 #### [facility] [address] [place], [address] MCHC (RBC) [Mass/Vol] 33.1 g/dL Normal 32-36 [facility] Comment on above: Performed By: #### L 700.6800, L500.2500, L100.0100 #### [facility] [address] [place], [address] MCV (RBC) [Entitic vol] 92.9 fL Normal 81-99 [facility] Comment on above: Performed By: #### L 700.6800, L500.2500, L100.0100 #### [facility] [address] [place], [address] Monocytes/100 WBC (Bld) 5.5 % Normal 0-10 [facility] Comment on above: Performed By: #### L 700.6800, L500.2500, L100.0100 #### [facility] [address] [place], [address] Neutrophils/100 WBC (Bld) 65.6 % Normal 47-70 [facility] Comment on above: Performed By: #### L 700.6800, L500.2500, L100.0100 #### [facility] [address] [place], [address] Nucleated RBC (Bld) [#/Vol] 0 10*3/uL Normal 0-5 [facility] Comment on above: Performed By: #### L 700.6800, L500.2500, L100.0100 #### [facility] [address] [place], [address] Platelet mean volume (Bld) [Entitic vol] 11.2 fL Normal 6.2-12.0 [facility] Comment on above: Performed By: #### L 700.6800, L500.2500, L100.0100 #### [facility] [address] [place], [address] Platelets (Bld) [#/Vol] 174 10*3/uL Normal 150-450 [facility] Comment on above: Performed By: #### L 700.6800, L500.2500, L100.0100 #### [facility] [address] [place], [address] RBC (Bld) [#/Vol] 4.78 10*6/uL Normal 4.2-5.4 [facility] Comment on above: Performed By: #### L 700.6800, L500.2500, L100.0100 #### [facility] [address] [place], [address] RDW SD 45.5 fl High 35.1-43.9 [facility] Comment on above: Performed By: #### L 700.6800, L500.2500, L100.0100 #### [facility] [address] [place], [address] WBC (Bld) [#/Vol] 9.2 10*3/uL Normal 4.4-11.0 [facility] Comment on above: Performed By: #### L 700.6800, L500.2500, L100.0100 #### [facility] [address] [place], [address] Carbon dioxide, total [Moles /volume] in Central venous bloodOrdered By: Linden Wallace on 12-18-2024 CO2 [Moles/Vol] 25.6 mmol/L 21.0-32.0 [facility] Chloride assayOrdered By: Jose Enrique Wallace on 12-18-2024 Chloride [Moles/Vol] 104 mmol/L 98-108 [facility] Emergency Department Summary on 12-18-2024 Emergency Department Summary [facility] Medical Records Department [address] [place] [address] Emergency Department Summary 12/18/24 MR#: [id number] Acct: [id number] Name: BOWEN JONES Rep #: [id number] : 2000 24 From: Linden Wallace MD PCP: VIVIAN GoelC Status:DEP ER Location: ED HPI HPI - GI History of Present Illness Chief Complaint: Abd Pain Narrative Narrative: 24-year-old female past medical history of double hernia in the umbilical/periumbi lical area with repair by Dr. Qureshi in March presents with pulling sensation on the right side of her umbilicus that she has had for the last 2 days. She relates history that the hernia repair was not performed with mesh but only stitches as she states that she and her surgeon wanted to avoid mesh. 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 She now has pulling sensation and the right side of her abdomen. She is concerned that the hernia has returned. However, she denies any fevers or chills associated with this, no nausea or vomiting, no dysuria or hematuria, no problems with bowel meds. [facility] Medical History Smoker Acute bronchitis Irregular heart beat Migraines Heart palpitations Marijuana use Alcohol use Easy bruising Restless legs Back pain Injury of head and neck Syncope Loss of consciousness Heartburn Bronchitis with influenza Shortness of breath on exertion Vapes nicotine containing substance Leg cramps Hypotension Vaginal delivery SROM (spontaneous rupture of membranes) Anxiety (05/06/24) Home Medications ???Medication ???Instructions ???Recorded ???Last Taken ???Type albuterol sulfate 90 mcg/actuation 1 - 2 puff inhalation Q4H PRN MN N 04/15/20 Unknown Rx aerosol inhaler Wheezing ##1 Allergy/AdvReac Type Severity Reaction Status Date / Time No Known Allergies Allergy Verified 12/18/24 10:34 Family History Mother Heart disease Cancer skin Grandmother Hypertension Seizures Thyroid disorder Cancer skin Grandfather Cancer skin Surgical History S/P hernia repair History of umbilical hernia repair [place] teeth removed History of tonsillectomy Social History Smoking Status: Former smoker alcohol intake: never substance use type: does not use ROS ROS ED ROS Narrative Review of systems positive for right periumbilical pain and area of hernia repair. No fevers or chills associated with it. No nausea or vomiting, no problems with bowel movements, no dysuria or hematuria. No exacerbating or alleviating factors. EXAM Physical Exam Narrative Exam Narrative: Afebrile. Vital signs noted. Nontoxic-appearing . Cardiovascular examination reveals regular rate and rhythm on my examination. Lungs are clear to auscultation bilaterally. The abdomen is soft with mild tenderness to palpation on the right side of the umbilicus. No erythema, no fluctuance. No induration. No guarding or rebound. Neurological examination nonfocal and nonlateralizing. Const Vital Signs: 12/18/24 10:32 12/18/24 13:16 Temperature 97.7 F L 98 F Temperature Source Temporal Pulse Rate 106 H 69 Respiratory Rate 15 17 Blood Pressure 125/89 H 105/72 Blood Pressure Mean 101 83 Pulse Ox 97 100 Oxygen Delivery Method Room Air MDM MDM MDM Narrative Medical decision making narrative: The differential diagnosis includes but not limited to hernia versus abdominal wall muscle tear versus nonspecific abdominal pain. I did review her prior ED visits, and she was seen a few months after her hernia repair, where CT had been performed. There was a hernia containing fat. She states that she had been released from the surgeons care. Comprehensive workup was pursued. I do feel that CT imaging should be obtained although I have low concern for any bowel obstruction as she is not showing any clinical signs of this. CBC will be obtained as well as BMP and serum . I reviewed her laboratory work and Serum test is negative. She has normal white count of 9.2, hemoglobin 14.7, hematocrit 44.4, platelet count 174. BMP is grossly unremarkable except for glucose slightly low at 59. She does not have symptoms with this. She can be discharged to eat something as an outpatient. Of more importance to her is the CT read which shows no evidence of an acute process, no hernia. I discussed the patient with Dr. Conor Qureshi with surgery as well who reviewed the CT and there is no evidence of an acute hernia. It was felt that she can follow-up with him as an outpatient (more content not included)... Normal [facility] Eosinophil percentageOrdered By: Linden Wallace on 12-18-2024 Eosinophils/100 WBC (Bld) 2.7 % 0-5 [facility] Erythrocyte distribution wid th ratioOrdered By: Linden Wallace on 12-18-2024 Erythrocyte distribution width (RBC) [Ratio] 13.3 % 11.6-14.6 [facility] Erythrocyte distribution wid th standard deviationOrdered By: Linden Wallace on 12-18-2024 Erythrocyte distribution width (RBC) [Ratio] 45.5 fl High 35.1-43.9 [facility] Glomerular filtration rate ( GFR) estimation/1.73 sq m using serum, plasma, or whole bOrdered By: Linden Wallace on 12-18-2024 GFR/1.73 sq M.predicted among non-blacks MDRD (S/P/Bld) [Vol rate/Area] 106 mL/min/{1.73_m2} >60 [facility] Comment on above: mL/min/1.73m2 CKD-EP I Creatinine Equation (2020) Hematocrit Auto (Bld) [Volum e fraction]Ordered By: Linden Wallace on 12-18-2024 Hematocrit (Bld) [Volume fraction] 44.4 % 37-47 [facility] Hemoglobin measurementOrdere d By: Linden Wallace on 12-18-2024 Hemoglobin (Bld) [Mass/Vol] 14.7 g/dL 12.0-15.0 [facility] Immature granulocytes/100 WB C Auto (Bld)Ordered By: Linden Wallace on 12-18-2024 Immature granulocytes/100 WBC (Bld) 0.300 % 0.0-0.9 [facility] Comment on above: IG% - Immature Granu locytes (promyelocytes, myelocytes and metamyelocytes) > 1% indicates that a LEFT SHIFT is Present. MCV (mean corpuscular volume ) determinationOrdered By: Linden Wallace on 12-18-2024 MCV (RBC) [Entitic vol] 92.9 fL 81-99 [facility] Mean corpuscular hemoglobin (MCH) determinationOrdered By: Linden Wallace on 12-18-2024 MCH (RBC) [Entitic mass] 30.8 pg 27.0-32.0 [facility] Mean corpuscular hemoglobin concentration (MCHC) determinationOrdered By: Linden Wallace on 12-18-2024 MCHC (RBC) [Mass/Vol] 33.1 g/dL 32-36 [facility] Mean platelet volume determi nationOrdered By: Linden Wallace on 12-18-2024 Platelet mean volume (Bld) [Entitic vol] 11.2 fL 6.2-12.0 [facility] Monocyte percentageOrdered B y: Linden Wallace on 12-18-2024 Monocytes/100 WBC (Bld) 5.5 % 0-10 [facility] Neutrophil percentageOrdered By: Linden Wallace on 12-18-2024 Neutrophils/100 WBC (Bld) 65.6 % 47-70 [facility] Nucleated red blood cell per centageOrdered By: Linden Wallace on 12-18-2024 Nucleated RBC/100 WBC (Bld) [Ratio] 0 % 0-5 [facility] Platelet countOrdered By: Jose Enrique Wallace on 12-18-2024 Platelets (Bld) [#/Vol] 174 10*3/uL 150-450 [facility] Potassium measurement (mass/ volume)Ordered By: Linden Wallace on 12-18-2024 Potassium (Unsp spec) [Mass/Vol] 3.9 mmol/L 3.3-5.1 [facility] ,Serum,hCG Quali.on 12-18-2024 HCG, SERUM QUAL Negative Normal [facility] Comment on above: Performed By: #### L 700.6800, L500.2500, L100.0100 #### [facility] [address] [place], [address] RBC Auto (Bld) [#/Vol]Ordere d By: Linden Wallace on 12-18-2024 RBC (Bld) [#/Vol] 4.78 10*6/uL 4.2-5.4 [facility] Serum beta-hCG test, qualita tiveOrdered By: Linden Wallace on 12-18-2024 Beta HCG ( test) Ql Negative [facility] Serum creatinine measurement (mass/volume)Ordered By: Linden Wallace on 12-18-2024 Creatinine [Mass/Vol] 0.79 mg/dL 0.70-1.20 [facility] Serum glucose measurement (m ass/volume)Ordered By: Linden Wallace on 12-18-2024 Glucose [Mass/Vol] 59 mg/dL Low 70-99 [facility] Serum or plasma calcium brooks urement (mass/volume)Ordered By: Linden Wallace on 12-18-2024 Calcium [Mass/Vol] 9.0 mg/dL 7.6-11.0 [facility] Serum or plasma urea nitroge n measurement (mass/volume)Ordered By: Linden Wallace on 12-18-2024 Urea nitrogen [Mass/Vol] 11 mg/dL 4-19 [facility] Sodium levelOrdered By: Linden Wallace on 12-18-2024 Sodium [Moles/Vol] 138 mmol/L 133-145 [facility] White blood cell (WBC) count Ordered By: Linden Wallace on 12-18-2024 WBC (Bld) [#/Vol] 9.2 10*3/uL 4.4-11.0 [facility] Abdomen/Pelvis W IV Cont ONL Yon 06-01-2024 Abdomen/Pelvis W IV Cont ONLY [facility] Services [address] [place] [address] Abdomen/Pelvis W IV Cont ONLY MR#: [id number] Acct: [id number] Name: BOWEN JONES Rep #: [id number] : 2000 F 23 From: Noe Min 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 This CT exam was performed using one or more of the following dose reduction techniques: automated exposure control, adjustment of the mA and/or kV according to patient size, and/or use of iterative reconstruction technique. CONTRAST: IV 100mL Isovue-370 RADIATION DOSE: CTDIvol = 6.54 mGy, DLP = 330.05 mGy-cm COMPARISON: 05/10/2024 FINDINGS: LOWER THORAX: Unremarkable. Lung bases are clear. No cardiomegaly. No significant pericardial effusion. ABDOMEN: LIVER: Unremarkable. Homogeneous. No focal mass. GALLBLADDER AND BILE DUCTS: Unremarkable. No calcified gallstones. No gallbladder distention or wall edema. No intra- or extrahepatic biliary ductal dilation. PANCREAS: Unremarkable. No focal cystic or solid mass. SPLEEN: Unremarkable. Normal size without focal cystic or solid mass. ADRENALS: Unremarkable. No nodules. KIDNEYS AND URETERS: Unremarkable. Normal renal size and position. No hydronephrosis. STOMACH AND BOWEL: Unremarkable. No stomach or bowel distention. No focal inflammatory change. PELVIS: APPENDIX: The appendix is visualized and is normal. BLADDER: Unremarkable. REPRODUCTIVE: Uterus is unremarkable. IUD in place. ABDOMEN and PELVIS: INTRAPERITONEAL SPACE: Unremarkable. No ascites or other fluid collection. No free air. BONES/JOINTS: Unremarkable. No suspicious lytic or blastic abnormality. SOFT TISSUES: Umbilical hernia containing fat. Mild inflammatory changes around the umbilicus may suggest cellulitis. VASCULATURE: Unremarkable. Abdominal aorta is non-dilated. LYMPH NODES: Unremarkable. No enlarged lymph nodes. CT/Abdomen/Pelvis W IV Cont ONLY IMPRESSION: Umbilical hernia containing fat. Mild inflammatory changes around the umbilicus may suggest cellulitis. Electronically Signed: Noe Love MD at 14:30 EDT , CC: DIPESH Bashir; Dr. Maximo Lew, DO Voice And Data Technician: Signed Normal [facility] CBC W/Diff, Automatedon 05-20 Absolute Lymph 1.59 X10 3/uL Normal 0.83-4.51 [facility] Comment on above: Performed By: #### L 100.0100, L500.4050, L501.2450, L700.6800 #### [facility] [address] [place], [address] Absolute Neut 3.5 X10 3/uL Normal 2.0-7.7 [facility] Comment on above: Performed By: #### L 100.0100, L500.4050, L501.2450, L700.6800 #### [facility] [address] [place], [address] Basophils/100 WBC (Bld) 0.5 % Normal 0-1 [facility] Comment on above: Performed By: #### L 100.0100, L500.4050, L501.2450, L700.6800 #### [facility] [address] [place], [address] Eosinophils/100 WBC (Bld) 2.8 % Normal 0-5 [facility] Comment on above: Performed By: #### L 100.0100, L500.4050, L501.2450, L700.6800 #### [facility] [address] [place], [address] Erythrocyte distribution width (RBC) [Ratio] 13.4 % Normal 11.6-14.6 [facility] Comment on above: Performed By: #### L 100.0100, L500.4050, L501.2450, L700.6800 #### [facility] [address] [place], [address] Hematocrit (Bld) [Volume fraction] 42.7 % Normal 37-47 [facility] Comment on above: Performed By: #### L 100.0100, L500.4050, L501.2450, L700.6800 #### [facility] [address] [place], [address] Hemoglobin (Bld) [Mass/Vol] 13.5 g/dL Normal 12.0-15.0 [facility] Comment on above: Performed By: #### L 100.0100, L500.4050, L501.2450, L700.6800 #### [facility] [address] [place], [address] IG% 0.400 Normal 0.0-0.9 [facility] Comment on above: Result Comment: IG% - Immature Granulocytes (promyelocytes, myelocytes and metamyelocytes) > 1% indicates that a LEFT SHIFT is Present. Performed By: #### L 100.0100, L500.4050, L501.2450, L700.6800 #### [facility] [address] [place], [address] Lymphocytes/100 WBC (Bld) 28.1 % Normal 19-41 [facility] Comment on above: Performed By: #### L 100.0100, L500.4050, L501.2450, L700.6800 #### [facility] [address] [place], [address] MCH (RBC) [Entitic mass] 28.8 pg Normal 27.0-32.0 [facility] Comment on above: Performed By: #### L 100.0100, L500.4050, L501.2450, L700.6800 #### [facility] [address] [place], [address] MCHC (RBC) [Mass/Vol] 31.6 g/dL Low 32-36 [facility] Comment on above: Performed By: #### L 100.0100, L500.4050, L501.2450, L700.6800 #### [facility] [address] [place], [address] MCV (RBC) [Entitic vol] 91.2 fL Normal 81-99 [facility] Comment on above: Performed By: #### L 100.0100, L500.4050, L501.2450, L700.6800 #### [facility] [address] [place], [address] Monocytes/100 WBC (Bld) 5.7 % Normal 0-10 [facility] Comment on above: Performed By: #### L 100.0100, L500.4050, L501.2450, L700.6800 #### [facility] [address] [place], [address] Neutrophils/100 WBC (Bld) 62.5 % Normal 47-70 [facility] Comment on above: Performed By: #### L 100.0100, L500.4050, L501.2450, L700.6800 #### [facility] [address] [place], [address] Nucleated RBC (Bld) [#/Vol] 0 10*3/uL Normal 0-5 [facility] Comment on above: Performed By: #### L 100.0100, L500.4050, L501.2450, L700.6800 #### [facility] [address] [place], [address] Platelet mean volume (Bld) [Entitic vol] 11.0 fL Normal 6.2-12.0 [facility] Comment on above: Performed By: #### L 100.0100, L500.4050, L501.2450, L700.6800 #### [facility] [address] [place], [address] Platelets (Bld) [#/Vol] 160 10*3/uL Normal 150-450 [facility] Comment on above: Performed By: #### L 100.0100, L500.4050, L501.2450, L700.6800 #### [facility] [address] [place], [address] RBC (Bld) [#/Vol] 4.68 10*6/uL Normal 4.2-5.4 [facility] Comment on above: Performed By: #### L 100.0100, L500.4050, L501.2450, L700.6800 #### [facility] [address] [place], [address] RDW SD 44.6 fl High 35.1-43.9 [facility] Comment on above: Performed By: #### L 100.0100, L500.4050, L501.2450, L700.6800 #### [facility] [address] [place], [address] WBC (Bld) [#/Vol] 5.7 10*3/uL Normal 4.4-11.0 [facility] Comment on above: Performed By: #### L 100.0100, L500.4050, L501.2450, L700.6800 #### [facility] [address] [place], [address] [facility] Albumin [Mass/Vol] 3.7 g/dL Normal 3.2-5.0 [facility] Comment on above: Performed By: #### L 100.0100, L500.4050, L501.2450, L700.6800 #### [facility] [address] [place], [address] Albumin/Globulin [Mass ratio] 1.2 {ratio} Normal 0.9-2.4 [facility] Comment on above: Performed By: #### L 100.0100, L500.4050, L501.2450, L700.6800 #### [facility] [address] [place], [address] ALK P 68 U/L Normal 45-117 [facility] Comment on above: Performed By: #### L 100.0100, L500.4050, L501.2450, L700.6800 #### [facility] [address] [place], [address] ALT [Catalytic activity/Vol] 10 U/L Low 13-56 [facility] Comment on above: Performed By: #### L 100.0100, L500.4050, L501.2450, L700.6800 #### [facility] [address] [place], [address] AST [Catalytic activity/Vol] 11 U/L Low 15-37 [facility] Comment on above: Performed By: #### L 100.0100, L500.4050, L501.2450, L700.6800 #### [facility] [address] [place], [address] Bilirubin [Mass/Vol] 0.40 mg/dL Normal 0.20-1.00 [facility] Comment on above: Result Comment: For patients on eltrombopag therapy, use of Dimension [place] TBIL is not recommended. Performed By: #### L 100.0100, L500.4050, L501.2450, L700.6800 #### [facility] [address] [place], [address] BUN/CRE 14.2 RATIO Normal 10-20 [facility] Comment on above: Performed By: #### L 100.0100, L500.4050, L501.2450, L700.6800 #### [facility] [address] [place], [address] CA,Total 8.6 mg/dL Normal 8.5-10.1 [facility] Comment on above: Performed By: #### L 100.0100, L500.4050, L501.2450, L700.6800 #### [facility] [address] [place], [address] Chloride [Moles/Vol] 110 mmol/L High 98-107 [facility] Comment on above: Performed By: #### L 100.0100, L500.4050, L501.2450, L700.6800 #### [facility] [address] [place], [address] CO2 [Moles/Vol] 27.0 mmol/L Normal 21.0-32.0 [facility] Comment on above: Performed By: #### L 100.0100, L500.4050, L501.2450, L700.6800 #### [facility] [address] [place], [address] Creatinine [Mass/Vol] 0.77 mg/dL Normal 0.55-1.02 [facility] Comment on above: Result Comment: The validity of the calculated GFR GFRAA in patients over 70 years has not been determined. Clinical correlation is essential. Performed By: #### L 100.0100, L500.4050, L501.2450, L700.6800 #### [facility] [address] [place], [address] ECRCL 93.19 ml/min Normal [facility] Comment on above: Performed By: #### L 100.0100, L500.4050, L501.2450, L700.6800 #### [facility] [address] [place], [address] EST GFR - AA 117 mL/min Normal >60 [facility] Comment on above: Result Comment: Afri can [place] GFR Calc Performed By: #### L 100.0100, L500.4050, L501.2450, L700.6800 #### [facility] [address] [place], [address] GAP 5 Normal 5-15 [facility] Comment on above: Performed By: #### L 100.0100, L500.4050, L501.2450, L700.6800 #### [facility] [address] [place], [address] GFR/1.73 sq M.predicted among non-blacks MDRD (S/P/Bld) [Vol rate/Area] 97 mL/min/{1.73_m2} Normal >60 [facility] Comment on above: Result Comment: Non- GFR Calc Performed By: #### L 100.0100, L500.4050, L501.2450, L700.6800 #### [facility] [address] [place], [address] Globulin (S) [Mass/Vol] 3.2 g/dL Normal 2.2-4.2 [facility] Comment on above: Performed By: #### L 100.0100, L500.4050, L501.2450, L700.6800 #### [facility] [address] [place], [address] Glucose [Mass/Vol] 86 mg/dL Normal 74-106 [facility] Comment on above: Performed By: #### L 100.0100, L500.4050, L501.2450, L700.6800 #### [facility] [address] [place], [address] Potassium [Moles/Vol] 3.6 mmol/L Normal 3.5-5.1 [facility] Comment on above: Performed By: #### L 100.0100, L500.4050, L501.2450, L700.6800 #### [facility] [address] [place], [address] Sodium [Moles/Vol] 142 mmol/L Normal 136-145 [facility] Comment on above: Performed By: #### L 100.0100, L500.4050, L501.2450, L700.6800 #### [facility] [address] [place], [address] T PROT 6.9 g/dL Normal 6.4-8.2 [facility] Comment on above: Performed By: #### L 100.0100, L500.4050, L501.2450, L700.6800 #### [facility] [address] [place] [place], [address] Urea nitrogen [Mass/Vol] 11 mg/dL Normal 7-18 [facility] Comment on above: Performed By: #### L 100.0100, L500.4050, L501.2450, L700.6800 #### [facility] [address] [place], [address] Emergency Department Summary on 06-01-2024 Emergency Department Summary [facility] Medical Records Department [address] [place] [address] Emergency Department Summary 06/01/24 MR#: [id number] Acct: [id number] Name: BOWEN JONES Rep #: [id number] : 2000 23 From: Maximo Lew DO PCP: DIPESH Goel Status:DEP ER Location: ED HPI History of Present Illness Chief Complaint: Wound Check Informant: patient Onset/Context/Timi warner Onset: Days (2) Context: Gradual Onset Timing: Continuous Quality: Pulling Location: Left periumbilical area Worsened by: Sneezing, coughing Relieved by: Tylenol Narrative Narrative: Patient presents with abdominal pain that has been getting worse over the last 2 days. Patient states she had an umbilical herniorrhaphy done approximately 4 weeks ago. Patient states that she feels a pulling sensation in the left periumbilical area. Patient states she has had some upper respiratory congestion recently and has been doing a lot of sneezing and coughing. Patient states this makes her pain worse. Patient denies any nausea or vomiting. Patient states she had a fever of 100 yesterday. Patient states she took Tylenol for this which helped. Patient denies any nausea or vomiting. Patient denies any urinary complaints. Patient denies any diarrhea. [facility] Medical History Smoker Acute bronchitis Irregular heart beat Migraines Heart palpitations Marijuana use Alcohol use Easy bruising Restless legs Back pain Injury of head and neck Syncope Loss of consciousness Heartburn Bronchitis with influenza Shortness of breath on exertion Vapes nicotine containing substance Leg cramps Hypotension Vaginal delivery SROM (spontaneous rupture of membranes) Anxiety (05/06/24) Home Medications ???Medication ???Instructions ???Recorded ???Last Taken ???Type albuterol sulfate 90 mcg/actuation 1 - 2 puff inhalation Q4H PRN PRN 04/15/20 Unknown Rx aerosol inhaler Wheezing ##1 nitrofurantoin 100 mg PO Q12H 3 days #6 caps 05/08/24 Unknown Rx monohydrate/macroc rystals 100 mg capsule (Macrobid) lorazepam 0.5 mg tablet (Ativan) 0.5 mg PO TID PRN anxiety #10 tabs 05/10/24 Unknown Rx Allergy/AdvReac Type Severity Reaction Status Date / Time No Known Allergies Allergy Verified 05/27/24 13:34 Family History Mother Heart disease Cancer skin Grandmother Hypertension Seizures Thyroid disorder Cancer skin Grandfather Cancer skin Surgical History S/P hernia repair History of umbilical hernia repair [place] teeth removed History of tonsillectomy Social History Smoking Status: Former smoker alcohol intake: never substance use type: does not use ROS ROS ED Constitutional Constitutional ED: Reports fever(s); Denies chills Eyes Eyes: Denies blurry vision or change in vision ENT ENT ED: Reports rhinorrhea and sore throat Cardiovascular Cardiovascular: Denies chest pain or palpitations Respiratory/Chest Respiratory/Chest: Denies cough or dyspnea Gastrointestinal Gastrointestinal: Reports abdominal pain; Denies nausea or vomiting Genitourinary Genitourinary ED: Denies dysuria or hematuria Musculoskeletal Musculoskeletal: Denies back pain or neck pain Integumentary Denies abscess or rash Neurologic Neurologic: Reports headache(s); Denies weakness Allergic/Immunolog ic Allergic/Immunolog ic ED: Denies mouth swelling or urticaria EXAM Physical Exam Const Vital Signs: 06/01/24 12:44 06/01/24 13:07 06/01/24 14:58 Temperature 97.9 F 97.9 F Temperature Source Temporal Oral Pulse Rate 104 H 104 H 66 Respiratory Rate 16 16 16 Blood Pressure 130/78 H 130/78 H 121/77 H Blood Pressure Mean 95 95 91 Pulse Ox 98 98 99 Oxygen Delivery Method Room Air Room Air Room Air Positive well nourished and well developed General Appearance ED: well developed and NAD HEENT Reports moist mucous membranes Neck supple and no JVD Resp normal respiratory effort and clear to auscultation bilaterally Cardio regular rate and regular rhythm GI non-distended Palpation: soft and tender LUQ (Near the umbilicus); Negative for guarding or rebound tenderness present Neuro oriented x3, CN's II-XII intact bilaterally and no sensory deficits noted Sensorium / Orientation: alert Motor Exam: strength 5/5 throughout Psych mental status grossly normal Skin Skin Narrative: There is a healing surgical wound over the umbilical area. It is healing well. There is no erythema or warmth. There is no discharge or drainage. There is minimal tenderness. MDM MDM MDM Narrative Medical decision making (more content not included)... Normal [facility] Lipaseon 06-01-2024 Lipase [Catalytic activity/Vol] 22 U/L Normal [facility] Comment on above: Result Comment: Mikki alanis note: LIPASE revised reference range effective 22. New Lipase methodology. Expected to produce lower values than the previous assay method. NEW Reference Range: 13 - 75 U/L Performed By: #### L 100.0100, L500.4050, L501.2450, L700.6800 #### [facility] [address] [place], [address] ,Serum,hCG Quali.on 06-01-2024 HCG, SERUM QUAL Negative Normal [facility] Comment on above: Performed By: #### L 100.0100, L500.4050, L501.2450, L700.6800 #### [facility] [address] [place], [address] Urinalysis, Completeon 06-01 EPI,SQUAMOUS 0-5 SEEN Normal 5-10 [facility] Comment on above: Order Comment: CLEAN CATCH Performed By: #### L 100.0100, L500.4050, L501.2450, L700.6800 #### [facility] [address] [place], [address] Mucus Ql (Urine sed) 1+ /hpf Normal [facility] Comment on above: Order Comment: CLEAN CATCH Performed By: #### L 100.0100, L500.4050, L501.2450, L700.6800 #### [facility] [address] [place], [address] WBC 0-5 SEEN Normal 0-5 [facility] Comment on above: Order Comment: CLEAN CATCH Performed By: #### L 100.0100, L500.4050, L501.2450, L700.6800 #### [facility] [address] [place], [address] BACTERIA 0 SEEN Normal None Seen [facility] Comment on above: Order Comment: CLEAN CATCH Performed By: #### L 100.0100, L500.4050, L501.2450, L700.6800 #### [facility] [address] [place] [place], [address] RBC 0 SEEN Normal 0-5 [facility] Comment on above: Order Comment: CLEAN CATCH Performed By: #### L 100.0100, L500.4050, L501.2450, L700.6800 #### [facility] [address] [place], [address] Surgery Visit Reporton 05-27 Surgery Visit Report [facility] [address] [place] [address] OFFICE VISIT Date of Service: 05/27/24 MR#: [id number] Acct: [id number] Name: BOWEN JONES Rep #: [id number] : 2000 Provider: JAYLAN arias Age/Sex: 23/F Location: [facility] Status: Signed Intake Vital Signs 05/10/24 08:16 Height 5 ft 3 in Weight: 125 lb 14.143 oz BMI 22.3 BP 143/87 H Respiration 12 Pulse 78 Temp 97.8 F Temp Source Oral Pulse Oximetry (%) 98 Intake Visit Reasons: epigastric hernia Chief Complaint: epigastric hernia Is patient in pain?: No Allergies No Known Allergies Allergy (Verified 05/27/24 13:34) Medications ???Medication ???Instructions ???Recorded ???Confirmed ???Type albuterol sulfate 90 mcg/actuation 1 - 2 puff inhalation Q4H PRN PRN 04/15/20 05/10/24 Rx aerosol inhaler Wheezing ##1 nitrofurantoin 100 mg PO Q12H 3 days #6 caps 05/08/24 05/10/24 Rx monohydrate/macroc rystals 100 mg capsule (Macrobid) lorazepam 0.5 mg tablet (Ativan) 0.5 mg PO TID PRN anxiety #10 tabs 05/10/24 Rx Subjective Details: Patient is a 23 y/o F I am following s/p primary repair of an epigastric hernia by Dr. Qureshi on 05/08/24. Patient tolerated the procedure well. She denies incision pain/discomfort. She denies any nausea, vomiting. She notes her appetite and bowel habits have returned to her normal. She has not returned to work. Pathology demonstrated mature adipose tissue consistent with hernia contents. Objective Details: Abdomen- incision c/d/i. No erythema or infection noted. No recurrent hernia noted. Coding Level of Care Code Global Post Op Diagnoses S/P hernia repair Z98.890; Z87.19 [facility] Medical History (Updated 05/18/24 @ 00:01 by Ivette Chi) Smoker Acute bronchitis Irregular heart beat Migraines Heart palpitations Marijuana use Alcohol use Easy bruising Restless legs Back pain Injury of head and neck Syncope Loss of consciousness Heartburn Bronchitis with influenza Shortness of breath on exertion Vapes nicotine containing substance Leg cramps Hypotension Vaginal delivery SROM (spontaneous rupture of membranes) Anxiety (05/06/24) Surgical History (Updated 05/27/24 @ 15:09 by Mervat DUENAS PA-C) S/P hernia repair History of umbilical hernia repair [place] teeth removed History of tonsillectomy Family History Mother Heart disease Cancer skin Grandmother Hypertension Seizures Thyroid disorder Cancer skin Grandfather Cancer skin Social History Smoking Status: Former smoker alcohol intake: never substance use type: does not use Assessment and Plan (No Qualifiers) Assessment and Plan (1) S/P hernia repair: Status: Acute Plan: Recommend no lifting greater than 10 pounds for 5 weeks from surgery date RTW letter was provided to the patient to return on 06/16 without restrictions Follow-up as needed 05/27/24 7086 Date Mervat DUENAS PA-C Cosigner Signature: Date (if applicable) CC: DIPESH Bashir; Dr. Conor Qureshi MD Normal [facility] CBC panel Auto (Bld)on 04-09 Erythrocyte distribution width (RBC) [Ratio] 12.2 % 11.5 - 15.0 % [facility] Hematocrit (Bld) [Volume fraction] 37.7 % 36.0 - 46.0 % [facility] Hemoglobin (Bld) [Mass/Vol] 12.0 g/dL 11.5 - 15.5 g/dL [facility] Interpretation and review of laboratory results Normal [facility] MCH (RBC) [Entitic mass] 30.2 pg 26. 0 - 34.0 pg [facility] MCHC (RBC) [Mass/Vol] 31.8 g/dL 30.5 - 36.0 g/dL [facility] MCV (RBC) [Entitic vol] 95.0 fL 80.0 - 100.0 fL [facility] Nucleated RBC (Bld) [#/Vol] NINF [facility] Platelet mean volume (Bld) [Entitic vol] 10.1 fL 9.0 - 12.7 fL [facility] Platelets (Bld) [#/Vol] 200 10*3/uL [facility] RBC (Bld) [#/Vol] 3.97 10*6/uL 3.90 - 5.2 0 m/uL [facility] WBC (Bld) [#/Vol] 8.16 10*3/uL [facility] ic US [place] 03-18-2024 Indication Viability Impression Maternal Structures: Right Ovary: Size 34 mm x 15 mm x 14 mm Left Ovary: Size 23 mm x 21 mm x 11 mm The left ovary contains a hemorrhagic corpus luteum cyst. The right ovary is normal. There is a single intrauterine . An intrauterine gestational sac with a yolk sac and pole is present. The yolk sac measure 13 mm. CRL measures 6.6 mm consistent with 6w 4d. [place] rump length measurement is NOT consistent with the LMP. cardiac activity is not seen. There is a subchorionic hematoma in the lower uterine segment. There is no free fluid available. Recommendations Compared to a previous ultrasound of 03/15/24 reported in EPIC done at an outside facility (No films available), there is no progression of the . This is suspicious of a non-viable however it is NOT diagnostic. An enlarged yolk sac greater than 7 mm is also suspicious for, but not diagnostic of failure. Recommend repeat ultrasound in 8 days to reassess. Corellate with HCG. Report called to provider. Maternal Assessment Height 160 cm Height (ft) 5 ft Height (in) 3 in Method Transabdominal and transvaginal ultrasound examination. View: Adequate visualization Menezes . Number of embryos: 1 Dating LMP on: 02/02/2024 GA by LMP 6 w + 3 d PLACIDO by LMP: 11/08/2024 Ultrasound examination on: 03/18/2024 GA by U/S based upon: CRL, GS GA by U/S 7 w + 6 d PLACIDO by U/S: 10/29/2024 Assigned: based on the LMP, selected on 03/18/2024 Assigned GA 6 w + 3 d Assigned PLACIDO: 11/08/2024 Assessment Gestational sac: visualized GS 37.6 mm 9w 0d >99% Frank Location: intrauterine Yolk sac: visualized YS 13.0 mm Embryo: visualized CRL 6.6 mm 6w 4d 81% [place] Cardiac activity: absent Maternal Structures Uterus / Cervix Uterus: Visualized Uterus position: anteverted Description of uterine malformations: none Uterus length 110 mm Uterus width 86 mm Uterus height 70 mm Uterus Vol 345.4 cm Other: subchorionic hemorrhage in SHAYLA approx 12 mm x 11 mm x 14 mm Ovaries / Tubes / Adnexa Rt ovary: Visualized Rt ovary morphology: premenopausal normal follicular Rt ovary D1 34 mm Rt ovary D2 15 mm Rt ovary D3 14 mm Rt ovary Vol 3.9 cm Lt ovary: Visualized Lt ovary D1 23 mm Lt ovary D2 21 mm Lt ovary D3 11 mm Lt ovary Vol 2.9 cm Lt ovarian corpus luteum: hemorrhagic [place] Sac / Bladder / Kidneys / Other [place]: Visualized Free fluid: no free fluid visualized Performed By: Ade Graham RDMS Read By: Carmenza Pisano M.D. MATERNAL MEDICINE [facility] Radiology Study observation (narrative) Eric min [facility] CBC panel Auto (Bld)on 03-17 Erythrocyte distribution width (RBC) [Ratio] 13.1 % 11.5 - 15.0 % [facility] Hematocrit (Bld) [Volume fraction] 41.8 % 36.0 - 46.0 % [facility] Hemoglobin (Bld) [Mass/Vol] 14.3 g/dL 11.5 - 15.5 g/dL [facility] Interpretation and review of laboratory results Normal [facility] MCH (RBC) [Entitic mass] 31.7 pg 26. 0 - 34.0 pg [facility] MCHC (RBC) [Mass/Vol] 34.2 g/dL 30.5 - 36.0 g/dL [facility] MCV (RBC) [Entitic vol] 92.7 fL 80.0 - 100.0 fL [facility] Nucleated RBC (Bld) [#/Vol] NINF [facility] Platelet mean volume (Bld) [Entitic vol] 10.5 fL 9.0 - 12.7 fL [facility] Platelets (Bld) [#/Vol] 176 10*3/uL [facility] RBC (Bld) [#/Vol] 4.51 10*6/uL 3.90 - 5.2 0 m/uL [facility] WBC (Bld) [#/Vol] 7.20 10*3/uL [facility] Comprehensive metabolic 2000 panelOrdered By: Isis Kumar on 03-17-2024 Albumin [Mass/Vol] 4.3 g/dL 3.9 - 4.9 g/dL [facility] ALP [Catalytic activity/Vol] 58 U/L 34 - 123 U/L [facility] ALT [Catalytic activity/Vol] 12 U/L 7 - 38 U/L [facility] Anion gap [Moles/Vol] 12 mmol/L 8 - 15 mmol/L [facility] AST [Catalytic activity/Vol] 12 U/L Low 13 - 35 U/L [facility] Bilirubin [Mass/Vol] 0.7 mg/dL 0.2 - 1 .3 mg/dL [facility] Calcium [Mass/Vol] 8.8 mg/dL 8.5 - 10. 2 mg/dL [facility] Chloride [Moles/Vol] 99 mmol/L 98 - 10 7 mmol/L [facility] CO2 [Moles/Vol] 25 mmol/L 22 - 30 mmol/L [facility] Creatinine [Mass/Vol] 0.49 mg/dL Low 0.58 - 0.96 mg/dL [facility] GFR/1.73 sq M.predicted among non-blacks MDRD (S/P/Bld) [Vol rate/Area] 135 mL/min/{1.73_m2} - PINF [facility] Comment on above: Estimated Glomerular Filtration Rate (eGFR) is calculated using the 2020 CKD-EPI creatinine equation. This equation utilizes serum creatinine, sex, and age as parameters. The creatinine assay has traceable calibration to isotope dilution-mass spectrometry. Refer to KDIGO guidelines for clinical interpretation. In patients with unstable renal function, e.g. those with acute kidney injury, the eGFR may not accurately reflect actual GFR. Glucose [Mass/Vol] 107 mg/dL High 74 - 99 mg/dL [facility] Comment on above: The [place] Diabete s Association (ADA) provides guidance for cutoff values for fasting glucose and random glucose. The ADA defines fasting as no caloric intake for at least 8 hours. Fasting plasma glucose results between 100 to 125 mg/dL indicate increased risk for diabetes (prediabetes). Fasting plasma glucose results greater than or equal to 126 mg/dL meet the criteria for diagnosis of diabetes. In the absence of unequivocal hyperglycemia, results should be confirmed by repeat testing. In a patient with classic symptoms of hyperglycemia or hyperglycemic crisis, random plasma glucose results greater than or equal to 200 mg/dL meet the criteria for diagnosis of diabetes. Reference: Standards of Medical Care in Diabetes 2016, [place] [employer] Association. Diabetes Care. 2016.39(Suppl 1). Interpretation and review of laboratory results Abnormal [facility] Potassium [Moles/Vol] 3.9 mmol/L 3.7 - 5.1 mmol/L [facility] Protein [Mass/Vol] 6.5 g/dL 6.3 - 8.0 g/dL [facility] Sodium [Moles/Vol] 136 mmol/L 136 - 144 mmol/L [facility] Urea nitrogen [Mass/Vol] 9 mg/dL 7 - 21 mg/d L [facility] ic CBC panel Auto (Bld)on 03-13 Erythrocyte distribution width (RBC) [Ratio] 13.2 % 11.5 - 15.0 % [facility] Hematocrit (Bld) [Volume fraction] 35.9 % Low 36.0 - 46.0 % [facility] Hemoglobin (Bld) [Mass/Vol] 12.1 g/dL 11.5 - 15.5 g/dL [facility] Interpretation and review of laboratory results Abnormal [facility] MCH (RBC) [Entitic mass] 32.1 pg 26. 0 - 34.0 pg [facility] MCHC (RBC) [Mass/Vol] 33.7 g/dL 30.5 - 36.0 g/dL [facility] MCV (RBC) [Entitic vol] 95.2 fL 80.0 - 100.0 fL [facility] Nucleated RBC (Bld) [#/Vol] NINF [facility] Platelet mean volume (Bld) [Entitic vol] 11.2 fL 9.0 - 12.7 fL [facility] Platelets (Bld) [#/Vol] 153 10*3/uL [facility] RBC (Bld) [#/Vol] 3.77 10*6/uL Low 3.90 - 5.2 0 m/uL [facility] WBC (Bld) [#/Vol] 7.90 10*3/uL [facility] ic XR Foot - left AP and Latera l and obliqueon 07-16-2023 IMPRESSION: Mild hallux valgus and mild first MTP joint degenerative changes. Bipartite medial hallux sesamoid. Soft tissue swelling about the great toe. No erosions. No other significant abnormality. Voice And Data Technician: PSCB Transcribe Date/Time: Jul 16 2023 7:02P Dictated by : WILLIAM CAMARILLO MD This examination was interpreted and the report reviewed and electronically signed by: WILLIAM CAMARILLO MD on Jul 16 2023 7:06PM [facility] DIVISION OF RADIOLOGY * * *Final Report* * * DATE OF EXAM: Jul 16 2023 11:39AM WOX [id number] - XR FOOT 3V AP/LAT/OBL LT / PROCEDURE REASON: Crushing injury of unspecified left toe(s), initial encounter * * * * Physician Interpretation * * * * EXAMINATION: XR FOOT 3V AP/LAT/OBL LT HISTORY: dropped a wooden chest on her left foot 2 days ago pain in distal first MT and toe Crushing injury of unspecified left toe(s), initial encounter . TECHNIQUE: XR FOOT 3V AP/LAT/OBL LT Laterality: LEFT Number of different views (projections): 3 M: XB_1 COMPARISON: None RESULT/ DIVISION OF RADIOLOGY Provider, [facility] - 07/16/2023 * * *Final Report* * * DATE OF EXAM: Jul 16 2023 11:39AM WOX [id number] - XR FOOT 3V AP/LAT/OBL LT / PROCEDURE REASON: Crushing injury of unspecified left toe(s), initial encounter * * * * Physician Interpretation * * * * EXAMINATION: XR FOOT 3V AP/LAT/OBL LT HISTORY: dropped a wooden chest on her left foot 2 days ago pain in distal first MT and toe Crushing injury of unspecified left toe(s), initial encounter . TECHNIQUE: XR FOOT 3V AP/LAT/OBL LT Laterality: LEFT Number of different views (projections): 3 M: XB_1 COMPARISON: None RESULT/ IMPRESSION IMPRESSION: Mild hallux valgus and mild first MTP joint degenerative changes. Bipartite medial hallux sesamoid. Soft tissue swelling about the great toe. No erosions. No other significant abnormality. Voice And Data Technician: PSCB Transcribe Date/Time: Jul 16 2023 7:02P Dictated by : WILLIAM CAMARILLO MD This examination was interpreted and the report reviewed and electronically signed by: WILLIAM CAMARILLO MD on Jul 16 2023 7:06PM EST [facility] Radiology Study observation (narrative) [facility] XR Foot - left AP and Latera l and obliqueOrdered By: Ccf Provider on 07-16-2023 [facility] XR SHOULDER MINIMUM 2 VIEWS LEFTon 12-18-2022 XR SHOULDER MINIMUM 2 VIEWS LEFT ORIGINAL EXAMINATION: TWO XRAY VIEWS OF THE LEFT SHOULDER 12/18/2022 6:32 pm COMPARISON: None. HISTORY: ORDERING SYSTEM PROVIDED HISTORY: Reason for Exam: pain FINDINGS: Glenohumeral joint is normally aligned. No evidence of acute fracture or dislocation. No abnormal periarticular calcifications. The AC joint is unremarkable in appearance. Visualized lung is unremarkable. IMPRESSION: No acute abnormality. RECOMMENDATIONS: Unavailable Interpreted by: Zane Dee Preliminary Report By: Zane Dee Electronically signed By Zane Dee Dictated Date: 12/18/2022 6:39:57 PM Prelim Date: 12/18/2022 6:40:22 PM Sign Date: 12/18/2022 6:40:22 PM Ordering Provider: MARQUEZ AYERS [facility] ([place]) Absolute lymphocyte countOrd ered By: Dr. Warren on 11-20-2022 Lymphocytes Auto (Unsp spec) [#/Vol] 0.29 10*3/uL 0.83-4.51 [facility] Basophil percentageOrdered B y: Dr. Warren on 11-20-2022 Basophils/100 WBC (Bld) 0.2 % 0-1 [facility] Chloride [Moles/Vol] 110 mmol/L 98-107 [facility] Eosinophils/100 WBC (Bld) 0.0 % 0-5 [facility] Glucose [Mass/Vol] 113 mg/dL 74-106 [facility] Comment on above: Fasting Glucose resu lt from 100 to 125 mg/dL suggests IMPAIRED HOMEOSTASIS per A.D.A. criteria. Neutrophils (Bld) [#/Vol] 11.6 10*3/uL 2.0-7.7 [facility] Neutrophils/100 WBC (Bld) 94.9 % 47-70 [facility] Potassium [Moles/Vol] 3.5 mmol/L 3.5-5.1 [facility] Sodium [Moles/Vol] 140 mmol/L 136-145 [facility] WBC (Bld) [#/Vol] 12.2 10*3/uL 4.4-11.0 [facility] Beta hCG serum qualOrdered B y: Dr. Warren on 11-20-2022 Beta HCG ( test) Ql Negative [facility] Blood erythrocytes count (nu mber/volume)Ordered By: Dr. Warren on 11-20-2022 RBC (Bld) [#/Vol] 4.39 10*6/uL 4.2-5.4 [facility] Blood hemoglobin measurement (mass/volume)Ordered By: Dr. Warren on 11-20-2022 Hemoglobin (Bld) [Mass/Vol] 14.2 g/dL 12.0-15.0 [facility] Blood lymphocytes/100 leukoc ytesOrdered By: Dr. Warren on 11-20-2022 Lymphocytes/100 WBC (Bld) 2.4 % 19-41 [facility] Blood monocytes/100 leukocyt esOrdered By: Dr. Warren on 04-03-2023 Monocytes/100 WBC (Bld) 2.3 % 0-10 [facility] Blood platelet mean volumeOr dered By: Dr. Warren on 11-20-2022 Platelet mean volume (Bld) [Entitic vol] 11.3 fL 6.2-12.0 [facility] Determination of erythrocyte mean corpuscular volume (MCV)Ordered By: Dr. Warren on 11-20-2022 MCV (RBC) [Entitic vol] 91.8 fL 81-99 [facility] Hematocrit Auto (Bld) [Volum e fraction]Ordered By: Dr. Warren on 11-20-2022 Hematocrit (Bld) [Volume fraction] 40.3 % 37-47 [facility] Laboratory - Chemistry and C hemistry - challengeOrdered By: Dr. Warren on 11-20-2022 CO2 [Moles/Vol] 24.0 mmol/L 21.0-32.0 [facility] Urea nitrogen/Creatinine [Mass ratio] 21.9 mg/mg 10-20 [facility] Laboratory - Hematology and Cell countsOrdered By: Dr. Warren on 11-20-2022 Erythrocyte distribution width (RBC) [Entitic vol] 41.1 fL 35.1-43.9 [facility] Erythrocyte distribution width (RBC) [Ratio] 12.1 % 11.6-14.6 [facility] Immature granulocytes/100 WBC (Bld) 0.200 % 0.0-0.9 [facility] Comment on above: IG% - Immature Granu locytes (promyelocytes, myelocytes and metamyelocytes) > 1% indicates that a LEFT SHIFT is Present. MCH (RBC) [Entitic mass] 32.3 pg 27.0-32.0 [facility] Nucleated RBC/100 WBC (Bld) [Ratio] 0 % 0-5 [facility] MCHC Auto (RBC) [Mass/Vol]Or dered By: Dr. Warren on 11-20-2022 MCHC (RBC) [Mass/Vol] 35.2 g/dL 32-36 [facility] No Panel InformationOrdered By: Dr. Warren on 11-20-2022 Estimated Creatinine Clearance Calc 102.93 ml/min [facility] Estimated GFR (MDRD) Amer 127 mL/min >60 [facility] Comment on above: GFR Calc Estimated GFR (MDRD) Non-Af Amer 105 mL/min >60 [facility] Comment on above: Non- GFR Calc Platelets bldOrdered By: Dr. Warren on 11-20-2022 Platelets (Bld) [#/Vol] 139 10*3/uL 150-450 [facility] Serum or plasma calcium brooks urement (mass/volume)Ordered By: Dr. Warren on 11-20-2022 Calcium [Mass/Vol] 9.0 mg/dL 8.5-10.1 [facility] Serum or plasma creatinine m easurement (mass/volume)Ordered By: Dr. Warren on 11-20-2022 Creatinine [Mass/Vol] 0.73 mg/dL 0.55-1.02 [facility] Comment on above: The validity of the calculated GFR & GFRAA in patients over 70 years has not been determined. Clinical correlation is essential. Serum or plasma urea nitroge n measurement (mass/volume)Ordered By: Dr. Warren on 11-20-2022 Urea nitrogen [Mass/Vol] 16 mg/dL 7-18 [facility] Thin prep Papanicolaou smear with manual screeningOrdered By: Dr. Warren on 11-20-2022 Thin prep Papanicolaou smear with manual screening 6 5-15 [facility] XR Thoracic spine AP and Lat eral and Swimmerson 09-26-2022 IMPRESSION: Negative thoracic spine x-rays. Voice And Data Technician: [facility] Transcribe Date/Time: Sep 26 2022 6:11P Dictated by : CASSIE HAIR MD This examination was interpreted and the report reviewed and electronically signed by: CASSIE HAIR MD on Sep 26 2022 6:13PM [facility] DIVISION OF RADIOLOGY * * *Final Report* * * DATE OF EXAM: Sep 26 2022 6:03PM WOX [id number] - XR THORACIC 3V AP/LAT/SWIMMERS / PROCEDURE REASON: Upper back pain * * * * Physician Interpretation * * * * THORACIC SPINE X-RAY SERIES HISTORY: Upper back pain COMPARISON: None available. TECHNIQUE: AP, lateral and swimmer's views. RESULT: Alignment: No significant subluxation or scoliosis. Bones: Vertebral bodies and the other included bony structures are negative. Intervertebral discs: Included intervertebral disc spaces are preserved. DIVISION OF RADIOLOGY Provider, [facility] - 09/26/2022 * * *Final Report* * * DATE OF EXAM: Sep 26 2022 6:03PM WOX [id number] - XR THORACIC 3V AP/LAT/SWIMMERS / PROCEDURE REASON: Upper back pain * * * * Physician Interpretation * * * * THORACIC SPINE X-RAY SERIES HISTORY: Upper back pain COMPARISON: None available. TECHNIQUE: AP, lateral and swimmer's views. RESULT: Alignment: No significant subluxation or scoliosis. Bones: Vertebral bodies and the other included bony structures are negative. Intervertebral discs: Included intervertebral disc spaces are preserved. IMPRESSION IMPRESSION: Negative thoracic spine x-rays. Voice And Data Technician: BRINDA Transcribe Date/Time: Sep 26 2022 6:11P Dictated by : CASSIE HAIR MD This examination was interpreted and the report reviewed and electronically signed by: CASSIE HAIR MD on Sep 26 2022 6:13PM EST [facility] Radiology Study observation (narrative) [facility] XR Thoracic spine AP and Lat eral and SwimmersOrdered By: Cc Provider on 09-26-2022 [facility] STREP A MOLECULAR (POC)on Procedural Control Valid [facility] Strep A (POCT) Negative Negative [facility] STREP A MOLECULAR (POC)on Procedural Control Valid [facility] Strep A (POCT) Negative Negative [facility] Basophil percentageon 2021 Bilirubin [Mass/Vol] 0.50 mg/dL 0.20-1.00 [facility] Work Phone: Comment on above: For patients on eltr ombopag therapy, use of Dimension [place] TBIL is not recommended. Protein [Mass/Vol] 6.0 g/dL 6.4-8.2 [facility] Work Phone: WBC (Bld) [#/Vol] 6.8 10*3/uL 4.4-11.0 [facility] Work Phone: Blood erythrocytes count (nu mber/volume)on 03-06-2022 RBC (Bld) [#/Vol] 4.18 10*6/uL 4.2-5.4 [facility] Work Phone: Blood hemoglobin measurement (mass/volume)on 03-06-2022 Hemoglobin (Bld) [Mass/Vol] 12.9 g/dL 12.0-15.0 [facility] Work Phone: Blood platelet mean volumeon 03-06-2022 Platelet mean volume (Bld) [Entitic vol] 10.9 fL 6.2-12.0 [facility] Work Phone: Determination of erythrocyte mean corpuscular volume (MCV)on 03-06-2022 MCV (RBC) [Entitic vol] 93.8 fL 81-99 [facility] Work Phone: Direct bilirubinon Bilirubin.direct [Mass/Vol] 0.17 mg/dL 0.00-0.30 [facility] Work Phone: Hematocrit Auto (Bld) [Volum e fraction]on 03-06-2022 Hematocrit (Bld) [Volume fraction] 39.2 % 37-47 [facility] Work Phone: INR in Blood by Coagulation assayon 03-06-2022 INR Coag (Bld) [Relative time] 1.1 {INR} [facility] Work Phone: Laboratory - Chemistry and C hemistry - challengeon 03-06-2022 ALP [Catalytic activity/Vol] 82 U/L 45-117 [facility] Work Phone: ALT [Catalytic activity/Vol] 13 U/L 13-56 [facility] Work Phone: Globulin (S) [Mass/Vol] 2.6 g/dL 2.2-4.2 [facility] Work Phone: HCG ( test) Ql (U) Negative [facility] Work Phone: Comment on above: Very dilute urine sp ecimens, as indicated by a low specificgravity, may not contain safety representative levels of hCG. If is still suspected, a first morning urinespecimen should be collected 48 hours later and tested. Laboratory - Coagulationon 0 03-06-2022 aPTT Coag (Bld) [Time] 29.6 s 24.1-36.2 [facility] Work Phone: PT Coag (PPP) [Time] 14.1 s 11.7-14.9 [facility] Work Phone: Laboratory - Hematology and Cell countson 03-06-2022 Erythrocyte distribution width (RBC) [Entitic vol] 45.5 fL 35.1-43.9 [facility] Work Phone: Erythrocyte distribution width (RBC) [Ratio] 13.2 % 11.6-14.6 [facility] Work Phone: MCH (RBC) [Entitic mass] 30.9 pg 27.0-32.0 [facility] Work Phone: MCHC Auto (RBC) [Mass/Vol]on 03-06-2022 MCHC (RBC) [Mass/Vol] 32.9 g/dL 32-36 [facility] Work Phone: Platelets bldon 03-06-2022 Platelets (Bld) [#/Vol] 164 10*3/uL 150-450 [facility] Work Phone: Serum or plasma albumin brooks urement (mass/volume)on 03-06-2022 Albumin [Mass/Vol] 3.4 g/dL 3.2-5.0 [facility] Work Phone: Thin prep Papanicolaou smear with manual screeningon 03-06-2022 Thin prep Papanicolaou smear with manual screening 9 U/L 15-37 [facility] Work Phone: STREP A MOLECULAR (POC)on Procedural Control Valid [facility] Strep A (POCT) Negative Negative [facility] CORONAVIRUS PCR [CCL]on 08-21 SEND TO ? YES Normal [facility] Comment on above: Performed By: #### [id number] #### [facility],[address] [place], [place] [id number] COVID 19 Result LEAD ATG DEVELOPER Negative Normal [facility] Comment on above: Result Comment: Nega tive for COVID19 (SARS CoV2) by PCR. This test was developed and its performance characteristics determined by [facility]'s [facility] [place]. This test has been authorized by FDA under an Emergency Use Authorization (EUA). This test has been validated in accordance with the FDA's Guidance Document Policy for Diagnostics Testing in Laboratories Certified to Perform High Complexity Testing under CLIA prior to Emergency use Authorization for Coronavirus Disease 2019 during the Public Health Emergency issued on October 18, [place] [address] Joesph Flores III, M.D. [id number] Performed By: #### [id number] #### [facility],[address] [place], [place] [id number] COVID 19 Source LEAD ATG DEVELOPER Nasopharyngeal Swab Normal [facility] Comment on above: Result Comment: Oscar ected on 09/10 AT 0046: Previously reported as LEAD ATG DEVELOPER SWAB Performed By: #### [id number] #### [facility],[address] [place], [place] [id number] Coronavirus 2019on 1 COVID 19 Result LEAD ATG DEVELOPER Normal Negative for COVID19 (SARS CoV2) by PCR. [facility] Comment on above: Result Comment: Nega tive for This test was developed and its performance characteristics determined by [facility]'s [facility] [place]. This test has been authorized by FDA under an Emergency Use Authorization (EUA). This test has been validated in accordance with the FDA's Guidance Document Policy for Diagnostics Testing in Laboratories Certified to Perform High Complexity Testing under CLIA prior to Emergency use Authorization for Coronavirus Disease 2019 during the Public Health Emergency issued on October 18, 2019. COVID19 (SARS This test was developed and its performance characteristics determined by [facility] [place]. This test has been authorized by FDA under an Emergency Use Authorization (EUA). This test has been validated in accordance with the FDA's Guidance Document Policy for Diagnostics Testing in Laboratories Certified to Perform High Complexity Testing under CLIA prior to Emergency use Authorization for Coronavirus Disease 2019 during the Public Health Emergency issued on October 18, 2019. CoV2) by PCR. This test was developed and its performance characteristics determined by [facility]'s [facility] [place]. This test has been authorized by FDA under an Emergency Use Authorization (EUA). This test has been validated in accordance with the FDA's Guidance Document Policy for Diagnostics Testing in Laboratories Certified to Perform High Complexity Testing under CLIA prior to Emergency use Authorization for Coronavirus Disease 2019 during the Public Health Emergency issued on October 18, 2019. COVID 19 Source LEAD ATG DEVELOPER Normal [facility] Comment on above: Result Comment: Naso pharyngeal Corrected on 09/10 AT 0046: Previously reported as LEAD ATG DEVELOPER SWAB Swab Corrected on 09/10 AT 0046: Previously reported as LEAD ATG DEVELOPER SWAB CORONAVIRUS PCR [CCL]on 03-21 REF LAB REPORT Negative Normal [facility] Comment on above: Performed By: #### [id number] #### [facility],[address] [place] [address] COVID 19 Result LEAD ATG DEVELOPER Negative Normal [facility] Comment on above: Result Comment: Nega tive for COVID19 (SARS CoV2) by PCR. This test was developed and its performance characteristics determined by [facility]'s [facility] [place]. This test has been authorized by FDA under an Emergency Use Authorization (EUA). This test has been validated in accordance with the FDA's Guidance Document Policy for Diagnostics Testing in Laboratories Certified to Perform High Complexity Testing under CLIA prior to Emergency use Authorization for Coronavirus Disease 2019 during the Public Health Emergency issued on October 18, 2019. [id number] [place] [address] Joesph Flores III, M.D. [id number] Performed By: #### [id number] #### [facility],[address] [place] [id number] COVID 19 Source LEAD ATG DEVELOPER LEAD ATG DEVELOPER SWAB Normal [facility] Comment on above: Performed By: #### [id number] #### [facility],[address] [place] [address] Vital Signs Date Time Vital Sign Value Performing Clinician Facility 05-07-2025 15:23-0400 Body temperature 98.2 [degF] Michelle Queden LEAD ATG DEVELOPER-C Work Phone: [facility] 05-07-2025 15:23-0400 Diastolic blood pressure 99 mm[Hg] Michelle Queden LEAD ATG DEVELOPER-C Work Phone: [facility] 05-07-2025 15:23-0400 Heart rate 61 /min Michelle Queden LEAD ATG DEVELOPER-C Work Phone: [facility] 05-07-2025 15:23-0400 Respiratory rate 16 /min Michelle Queden LEAD ATG DEVELOPER-C Work Phone: [facility] 05-07-2025 15:23-0400 SaO2% (BldA) [Mass fraction] 99 % Michelle Queden LEAD ATG DEVELOPER-C Work Phone: [facility] 05-07-2025 15:23-0400 Systolic blood pressure 119 mm[Hg] Michelle Queden LEAD ATG DEVELOPER-C Work Phone: [facility] 05-07-2025 13:36-0400 Body height 162.56 cm Michelle Queden LEAD ATG DEVELOPER-C Work Phone: [facility] 05-07-2025 13:36-0400 Body mass index (BMI) [Ratio] 20.6 kg/m2 Michelle Queden LEAD ATG DEVELOPER-C Work Phone: [facility] 05-07-2025 13:36-0400 Body weight 54.47 kg Michelle Queden LEAD ATG DEVELOPER-C Work Phone: [facility] 04-18-2025 19:25-0400 Diastolic blood pressure 84 mm[Hg] Carlos Jason DO Work Phone: 6(622)456-014669 [place] [address] 04-18-2025 19:25-0400 Heart rate 92 /min Carlos Ferrerune DO Work Phone: 1(539)250-317269 [place] [address] 04-18-2025 19:25-0400 Respiratory rate 16 /min Carlos Ferrerune DO Work Phone: 5(037)314-086269 [place] [address] 04-18-2025 19:25-0400 SaO2% (BldA) [Mass fraction] 97 % Carlos Jason DO Work Phone: 1(478)268-246269 [place] [address] 04-18-2025 19:25-0400 Systolic blood pressure 99 mm[Hg] Carlos Ferrerune DO Work Phone: 7(205)697-955269 [place] [address] 04-18-2025 17:33-0400 Body height 162.6 cm Carlos Jason DO Work Phone: 5(341)506-066969 [place] [address] 04-18-2025 17:33-0400 Body mass index (BMI) [Ratio] 20.6 kg/m2 Carlos Ferrerune DO Work Phone: 9(890)[phone] [place] [address] 04-18-2025 17:33-0400 Body temperature 99 [degF] Carlos Jason DO Work Phone: 7(671)307-690669 [place] [address] 04-18-2025 17:33-0400 Body weight 54.43 kg Carlos Jason DO Work Phone: 5(719)740-921569 [place] [address] 03-25-2025 13:21-0400 Body height 162.6 cm Marzena Luu CUSTODIAL SERVICES MANAGER Work Phone: [facility] [place] 03-25-2025 13:21-0400 Body mass index (BMI) [Ratio] 20.6 kg/m2 Marzena Luu CUSTODIAL SERVICES MANAGER Work Phone: [facility] [place] 03-25-2025 13:21-0400 Body weight 54.43 kg Marzena Luu CUSTODIAL SERVICES MANAGER Work Phone: [facility] [place] 03-20-2025 09:01-0400 Body height 160.7 cm Michelle Queden BUSINESS DEPARTMENT CHAIR.CUSTODIAL SERVICES MANAGER Work Phone: [facility] 03-20-2025 09:01-0400 Body mass index (BMI) [Ratio] 20.91 kg/m2 Michelle Queden BUSINESS DEPARTMENT CHAIR.CUSTODIAL SERVICES MANAGER Work Phone: [facility] 03-20-2025 09:01-0400 Body temperature 97.81 [degF] Michelle Queden BUSINESS DEPARTMENT CHAIR.CUSTODIAL SERVICES MANAGER Work Phone: [facility] 03-20-2025 09:01-0400 Body weight 53.98 kg Michelle Queden BUSINESS DEPARTMENT CHAIR.CUSTODIAL SERVICES MANAGER Work Phone: [facility] 03-20-2025 09:01-0400 Diastolic blood pressure 76 mm[Hg] Michelle Queden BUSINESS DEPARTMENT CHAIR.CUSTODIAL SERVICES MANAGER Work Phone: [facility] 03-20-2025 09:01-0400 Heart rate 60 /min Michelle Queden BUSINESS DEPARTMENT CHAIR.CUSTODIAL SERVICES MANAGER Work Phone: [facility] 03-20-2025 09:01-0400 Respiratory rate 18 /min Michelle Queden BUSINESS DEPARTMENT CHAIR.CUSTODIAL SERVICES MANAGER Work Phone: [facility] 03-20-2025 09:01-0400 SaO2% (BldA) [Mass fraction] 98 % Michelle Queden BUSINESS DEPARTMENT CHAIR.CUSTODIAL SERVICES MANAGER Work Phone: [facility] 03-20-2025 09:01-0400 Systolic blood pressure 122 mm[Hg] Michelle Queden BUSINESS DEPARTMENT CHAIR.CUSTODIAL SERVICES MANAGER Work Phone: [facility] 02-04-2025 16:41-0400 Body temperature 98 [degF] Michelle Queden LEAD ATG DEVELOPER-C Work Phone: [facility] 02-04-2025 16:41-0400 Diastolic blood pressure 74 mm[Hg] Michelle Queden LEAD ATG DEVELOPER-C Work Phone: [facility] 02-04-2025 16:41-0400 Heart rate 61 /min Michelle Queden LEAD ATG DEVELOPER-C Work Phone: [facility] 02-04-2025 16:41-0400 Respiratory rate 18 /min Michelle Queden LEAD ATG DEVELOPER-C Work Phone: [facility] 02-04-2025 16:41-0400 SaO2% (BldA) [Mass fraction] 100 % Michelle Queden LEAD ATG DEVELOPER-C Work Phone: [facility] 02-04-2025 16:41-0400 Systolic blood pressure 105 mm[Hg] Michelle Queden LEAD ATG DEVELOPER-C Work Phone: [facility] 02-04-2025 11:15-0400 Body height 162.56 cm Michelle Queden LEAD ATG DEVELOPER-C Work Phone: [facility] 02-04-2025 11:15-0400 Body mass index (BMI) [Ratio] 21 kg/m2 Michelle Queden LEAD ATG DEVELOPER-C Work Phone: [facility] 02-04-2025 11:15-0400 Body weight 55.7 kg Michelle Queden LEAD ATG DEVELOPER-C Work Phone: [facility] 01-28-2025 15:47-0400 Body temperature 97.9 [degF] Michelle Queden LEAD ATG DEVELOPER-C Work Phone: [facility] 01-28-2025 15:47-0400 Diastolic blood pressure 70 mm[Hg] Michelle Queden LEAD ATG DEVELOPER-C Work Phone: [facility] 01-28-2025 15:47-0400 Heart rate 80 /min Michelle Queden LEAD ATG DEVELOPER-C Work Phone: [facility] 01-28-2025 15:47-0400 Respiratory rate 18 /min Michelle Queden LEAD ATG DEVELOPER-C Work Phone: [facility] 01-28-2025 15:47-0400 SaO2% (BldA) [Mass fraction] 100 % Michelle Queden LEAD ATG DEVELOPER-C Work Phone: [facility] 01-28-2025 15:47-0400 Systolic blood pressure 135 mm[Hg] Michelle Queden LEAD ATG DEVELOPER-C Work Phone: [facility] 01-28-2025 11:11-0400 Body height 162.56 cm Michelle Queden LEAD ATG DEVELOPER-C Work Phone: [facility] 01-28-2025 11:11-0400 Body mass index (BMI) [Ratio] 20.5 kg/m2 Michelle Queden LEAD ATG DEVELOPER-C Work Phone: [facility] 01-28-2025 11:11-0400 Body weight 54.06 kg Michelle Queden LEAD ATG DEVELOPER-C Work Phone: [facility] 12-18-2024 13:16-0400 Body temperature 98 [degF] Michelle Queden LEAD ATG DEVELOPER-C Work Phone: [facility] 12-18-2024 13:16-0400 Diastolic blood pressure 72 mm[Hg] Michelle Queden LEAD ATG DEVELOPER-C Work Phone: [facility] 12-18-2024 13:16-0400 Heart rate 69 /min Michelle Queden LEAD ATG DEVELOPER-C Work Phone: [facility] 12-18-2024 13:16-0400 Respiratory rate 17 /min Michelle Queden LEAD ATG DEVELOPER-C Work Phone: [facility] 12-18-2024 13:16-0400 SaO2% (BldA) [Mass fraction] 100 % Michelle Queden LEAD ATG DEVELOPER-C Work Phone: [facility] 12-18-2024 13:16-0400 Systolic blood pressure 105 mm[Hg] Michelle Queden LEAD ATG DEVELOPER-C Work Phone: [facility] 12-18-2024 10:32-0400 Body mass index (BMI) [Ratio] 22.4 kg/m2 Michelle Queden LEAD ATG DEVELOPER-C Work Phone: [facility] 12-18-2024 10:32-0400 Body weight 57.28 kg Michelle Bustillotristan LEAD ATG DEVELOPER-C Work Phone: [facility] 04-28-2024 08:56-0400 Body mass index (BMI) [Ratio] 22.08 kg/m2 Leida Praisler-Wood BUSINESS DEPARTMENT CHAIR.CUSTODIAL SERVICES MANAGER Work Phone: [facility] 04-28-2024 08:56-0400 Body temperature 97.81 [degF] Leida Praisler-Wood BUSINESS DEPARTMENT CHAIR.CUSTODIAL SERVICES MANAGER Work Phone: [facility] 04-28-2024 08:56-0400 Body weight 57 kg Leida Praisler-Wood BUSINESS DEPARTMENT CHAIR.CUSTODIAL SERVICES MANAGER Work Phone: [facility] 04-28-2024 08:56-0400 Diastolic blood pressure 72 mm[Hg] Leida Praisler-Wood BUSINESS DEPARTMENT CHAIR.CUSTODIAL SERVICES MANAGER Work Phone: [facility] 04-28-2024 08:56-0400 Heart rate 90 /min Leida Praisler-Wood BUSINESS DEPARTMENT CHAIR.CUSTODIAL SERVICES MANAGER Work Phone: [facility] 04-28-2024 08:56-0400 Respiratory rate 20 /min Leida Praisler-Wood BUSINESS DEPARTMENT CHAIR.CUSTODIAL SERVICES MANAGER Work Phone: [facility] 04-28-2024 08:56-0400 SaO2% (BldA) [Mass fraction] 97 % Leida Praisler-Wood BUSINESS DEPARTMENT CHAIR.CUSTODIAL SERVICES MANAGER Work Phone: [facility] 04-28-2024 08:56-0400 Systolic blood pressure 102 mm[Hg] Leida Praisler-Wood BUSINESS DEPARTMENT CHAIR.CUSTODIAL SERVICES MANAGER Work Phone: [facility] 04-09-2024 08:26-0400 Body mass index (BMI) [Ratio] 21.44 kg/m2 Mckenna Chaparro MD Work Phone: [facility] 04-09-2024 08:26-0400 Body weight 55.34 kg Mckenna Chaparro MD Work Phone: [facility] 04-09-2024 08:26-0400 Diastolic blood pressure 60 mm[Hg] Mckenna Chaparro MD Work Phone: [facility] 04-09-2024 08:26-0400 Systolic blood pressure 100 mm[Hg] Mckenna Chaparro MD Work Phone: [facility] 03-18-2024 15:51-0400 Body height 160.7 cm Vonda Earl MD Work Phone: [facility] 03-18-2024 15:51-0400 Body mass index (BMI) [Ratio] 20.91 kg/m2 Vonda Earl MD Work Phone: [facility] 03-18-2024 15:51-0400 Body weight 53.98 kg Vonda Earl MD Work Phone: [facility] 03-18-2024 15:51-0400 Diastolic blood pressure 68 mm[Hg] Vonda Earl MD Work Phone: [facility] 03-18-2024 15:51-0400 Systolic blood pressure 102 mm[Hg] Vonda Earl MD Work Phone: [facility] 03-17-2024 09:24-0400 Body mass index (BMI) [Ratio] 20.25 kg/m2 Krystal Henderson APRN.CUSTODIAL SERVICES MANAGER Work Phone: [facility] 03-17-2024 09:24-0400 Body weight 53.52 kg Krystal Henderson APRN.CUSTODIAL SERVICES MANAGER Work Phone: [facility] 03-17-2024 09:24-0400 Diastolic blood pressure 78 mm[Hg] Krystal Haruben BUSINESS DEPARTMENT CHAIR.CUSTODIAL SERVICES MANAGER Work Phone: [facility] 03-17-2024 09:24-0400 Heart rate 100 /min Krystalsarah Henderson APRN.CUSTODIAL SERVICES MANAGER Work Phone: [facility] 03-17-2024 09:24-0400 Respiratory rate 14 /min Krystal Henderson APRN.CUSTODIAL SERVICES MANAGER Work Phone: [facility] 03-17-2024 09:24-0400 SaO2% (BldA) [Mass fraction] 99 % Krystal Henderson APRN.CUSTODIAL SERVICES MANAGER Work Phone: [facility] 03-17-2024 09:24-0400 Systolic blood pressure 122 mm[Hg] Krystal Henderson BUSINESS DEPARTMENT CHAIR.CUSTODIAL SERVICES MANAGER Work Phone: [facility] 03-13-2024 16:10-0400 Body mass index (BMI) [Ratio] 21.28 kg/m2 Krystal Henderson APRN.CUSTODIAL SERVICES MANAGER Work Phone: [facility] 03-13-2024 16:10-0400 Body weight 56.25 kg Krystal Henderson APRN.CUSTODIAL SERVICES MANAGER Work Phone: [facility] 03-13-2024 16:10-0400 Diastolic blood pressure 72 mm[Hg] Krystal Henderson BUSINESS DEPARTMENT CHAIR.CUSTODIAL SERVICES MANAGER Work Phone: [facility] 03-13-2024 16:10-0400 Systolic blood pressure 122 mm[Hg] Krystal Henderson BUSINESS DEPARTMENT CHAIR.CUSTODIAL SERVICES MANAGER Work Phone: [facility] 02-19-2024 10:06-0400 Body mass index (BMI) [Ratio] 20.06 kg/m2 Katelynn Jiang APRN.CUSTODIAL SERVICES MANAGER Work Phone: [facility] 02-19-2024 10:06-0400 Body temperature 98.01 [degF] Katelynn Jiang APRN.CUSTODIAL SERVICES MANAGER Work Phone: [facility] 02-19-2024 10:06-0400 Body weight 53 kg Katelynn Jiang APRN.CUSTODIAL SERVICES MANAGER Work Phone: [facility] 02-19-2024 10:06-0400 Diastolic blood pressure 80 mm[Hg] Katelynn Jiang APRN.CUSTODIAL SERVICES MANAGER Work Phone: [facility] 02-19-2024 10:06-0400 Heart rate 99 /min Katelynn Jiang APRN.CUSTODIAL SERVICES MANAGER Work Phone: [facility] 02-19-2024 10:06-0400 Respiratory rate 18 /min Katelynn Jiang APRN.CUSTODIAL SERVICES MANAGER Work Phone: [facility] 02-19-2024 10:06-0400 SaO2% (BldA) [Mass fraction] 99 % Katelynn Jiang BUSINESS DEPARTMENT CHAIR.CUSTODIAL SERVICES MANAGER Work Phone: [facility] 02-19-2024 10:06-0400 Systolic blood pressure 117 mm[Hg] Katelynn Jiang BUSINESS DEPARTMENT CHAIR.CUSTODIAL SERVICES MANAGER Work Phone: [facility] 10-31-2023 13:33-0400 Body temperature 98.49 [degF] Latricia Grissom BUSINESS DEPARTMENT CHAIR.CUSTODIAL SERVICES MANAGER Work Phone: [facility] 10-31-2023 13:33-0400 Body weight 55.9 kg Latricia Grissom BUSINESS DEPARTMENT CHAIR.CUSTODIAL SERVICES MANAGER Work Phone: [facility] 10-31-2023 13:33-0400 Diastolic blood pressure 78 mm[Hg] Latricia Grissom BUSINESS DEPARTMENT CHAIR.CUSTODIAL SERVICES MANAGER Work Phone: [facility] 10-31-2023 13:33-0400 Heart rate 65 /min Latricia Grissom BUSINESS DEPARTMENT CHAIR.CUSTODIAL SERVICES MANAGER Work Phone: [facility] 10-31-2023 13:33-0400 Respiratory rate 18 /min Latricia Grissom BUSINESS DEPARTMENT CHAIR.CUSTODIAL SERVICES MANAGER Work Phone: [facility] 10-31-2023 13:33-0400 SaO2% (BldA) [Mass fraction] 99 % Latricia Grissom BUSINESS DEPARTMENT CHAIR.CUSTODIAL SERVICES MANAGER Work Phone: [facility] 10-31-2023 13:33-0400 Systolic blood pressure 110 mm[Hg] Latricia Grissom BUSINESS DEPARTMENT CHAIR.CUSTODIAL SERVICES MANAGER Work Phone: [facility] 07-15-2023 13:52-0500 Body temperature 98.6 [degF] Ree Banks BUSINESS DEPARTMENT CHAIR.CUSTODIAL SERVICES MANAGER Work Phone: [facility] 07-15-2023 13:52-0500 Body weight 52.62 kg Ree Banks BUSINESS DEPARTMENT CHAIR.CUSTODIAL SERVICES MANAGER Work Phone: [facility] 07-15-2023 13:52-0500 Diastolic blood pressure 82 mm[Hg] Ree Banks BUSINESS DEPARTMENT CHAIR.CUSTODIAL SERVICES MANAGER Work Phone: [facility] 07-15-2023 13:52-0500 Heart rate 85 /min Ree Banks BUSINESS DEPARTMENT CHAIR.CUSTODIAL SERVICES MANAGER Work Phone: [facility] 07-15-2023 13:52-0500 Respiratory rate 18 /min Ree Banks BUSINESS DEPARTMENT CHAIR.CUSTODIAL SERVICES MANAGER Work Phone: [facility] 07-15-2023 13:52-0500 SaO2% (BldA) [Mass fraction] 98 % Ree Banks BUSINESS DEPARTMENT CHAIR.CUSTODIAL SERVICES MANAGER Work Phone: [facility] 07-15-2023 13:52-0500 Systolic blood pressure 125 mm[Hg] Ree Banks BUSINESS DEPARTMENT CHAIR.CUSTODIAL SERVICES MANAGER Work Phone: [facility] 04-19-2023 12:21-0400 Blood Pressure Location KENDRICK ANDRADE MD [facility] 04-19-2023 12:21-0400 Blood Pressure Method KENDRICK ANDRADE MD [facility] 04-19-2023 12:21-0400 Body temperature 97.88 [degF] KENDRICK ANDRADE MD [facility] 04-19-2023 12:21-0400 Body weight 49.3 kg KENDRICK ANDRADE MD [facility] 04-19-2023 12:21-0400 Diastolic Blood Pressure Non-Invasive 82 1 KENDRICK ANDRADE MD [facility] 04-19-2023 12:21-0400 Heart rate 87 /min KENDRICK ANDRADE MD [facility] 04-19-2023 12:21-0400 Respiratory rate 18 /min KENDRICK ANDRADE MD [facility] 04-19-2023 12:21-0400 Systolic Blood Pressure Non-Invasive 118 1 KENDRICK ANDRADE MD [facility] 04-16-2023 17:52-0400 Body height 162.56 cm No Primary Care Physician [facility] 04-16-2023 17:52-0400 Body mass index (BMI) [Ratio] 19.1 kg/m2 No Primary Care Physician [facility] 04-16-2023 17:52-0400 Body temperature 98 [degF] No Primary Care Physician [facility] 04-16-2023 17:52-0400 Body weight 50.6 kg No Primary Care Physician [facility] 04-16-2023 17:52-0400 Diastolic blood pressure 80 mm[Hg] No Primary Care Physician [facility] 04-16-2023 17:52-0400 Heart rate 87 /min No Primary Care Physician [facility] 04-16-2023 17:52-0400 Respiratory rate 16 /min No Primary Care Physician [facility] 04-16-2023 17:52-0400 SaO2% (BldA) [Mass fraction] 98 % No Primary Care Physician [facility] 04-16-2023 17:52-0400 Systolic blood pressure 132 mm[Hg] No Primary Care Physician [facility] 04-13-2023 19:14-0400 Body temperature 98.1 [degF] Latricia Grissom BUSINESS DEPARTMENT CHAIR.CUSTODIAL SERVICES MANAGER Work Phone: [facility] 04-13-2023 19:14-0400 Body weight 50.26 kg Latricia Grissom BUSINESS DEPARTMENT CHAIR.CUSTODIAL SERVICES MANAGER Work Phone: [facility] 04-13-2023 19:14-0400 Diastolic blood pressure 85 mm[Hg] Latricia Grissom BUSINESS DEPARTMENT CHAIR.CUSTODIAL SERVICES MANAGER Work Phone: [facility] 04-13-2023 19:14-0400 Heart rate 73 /min Latricia Grissom BUSINESS DEPARTMENT CHAIR.CUSTODIAL SERVICES MANAGER Work Phone: [facility] 04-13-2023 19:14-0400 Respiratory rate 18 /min Latricia Grissom BUSINESS DEPARTMENT CHAIR.CUSTODIAL SERVICES MANAGER Work Phone: [facility] 04-13-2023 19:14-0400 SaO2% (BldA) [Mass fraction] 100 % Latricia Grissom BUSINESS DEPARTMENT CHAIR.CUSTODIAL SERVICES MANAGER Work Phone: [facility] 04-13-2023 19:14-0400 Systolic blood pressure 135 mm[Hg] Latricia Grissom GIBRAN Work Phone: [facility] 02-16-2023 14:13-0400 Body mass index (BMI) [Ratio] 19.9 kg/m2 No Primary Care Physician [facility] 02-16-2023 14:13-0400 Body weight 52.61 kg No Primary Care Physician [facility] 02-16-2023 14:13-0400 Diastolic blood pressure 78 mm[Hg] No Primary Care Physician [facility] 02-16-2023 14:13-0400 Respiratory rate 16 /min No Primary Care Physician [facility] 02-16-2023 14:13-0400 Systolic blood pressure 116 mm[Hg] No Primary Care Physician [facility] 12-30-2022 09:29-0400 Body temperature 98.78 [degF] DR SHANA BOYD MD [facility] 12-30-2022 09:29-0400 Diastolic Blood Pressure Non-Invasive [address] SHANA BOYD MD [facility] 12-30-2022 09:29-0400 Heart rate 85 /min DR SHANA BOYD MD [facility] 12-30-2022 09:29-0400 Respiratory rate 16 /min DR SHANA BOYD MD [facility] 12-30-2022 09:29-0400 Systolic Blood Pressure Non-Invasive [address] SHANA BOYD MD [facility] 12-18-2022 18:08-0400 Body temperature 98.6 [degF] MARQUEZ AYERS DO [facility] 12-18-2022 18:08-0400 Body weight 56.8 kg MARQUEZ AYERS DO [facility] 12-18-2022 18:08-0400 Diastolic Blood Pressure Non-Invasive 76 1 MARQUEZ REICHFIELD DO [facility] 12-18-2022 18:08-0400 Heart rate 88 /min [facility] 12-18-2022 18:08-0400 Respiratory rate 16 /min [facility] DO [facility] 12-18-2022 18:08-0400 Systolic Blood Pressure Non-Invasive 116 1 [facility] 11-20-2022 14:56-0400 Diastolic blood pressure 63 mm[Hg] [facility] 11-20-2022 14:56-0400 Heart rate 72 /min [facility] 11-20-2022 14:56-0400 Respiratory rate 15 /min [facility] 11-20-2022 14:56-0400 SaO2% (BldA) [Mass fraction] 98 % [facility] 11-20-2022 14:56-0400 Systolic blood pressure 103 mm[Hg] [facility] 11-20-2022 13:02-0400 Body height 162.56 cm [facility] 11-20-2022 13:02-0400 Body mass index (BMI) [Ratio] 20.5 kg/m2 [facility] 11-20-2022 13:02-0400 Body temperature 98 [degF] [facility] 11-20-2022 13:02-0400 Body weight 54.4 kg [facility] 10-17-2022 10:00-0500 Diastolic blood pressure 72 mm[Hg] Vitaly Golias PT Work Phone: [facility] 10-17-2022 10:00-0500 Systolic blood pressure 96 mm[Hg] Vitaly Golias PT Work Phone: [facility] 10-11-2022 20:56-0500 Body height 162.56 cm [facility] 10-11-2022 20:56-0500 Body mass index (BMI) [Ratio] 21.2 kg/m2 [facility] 10-11-2022 20:56-0500 Body temperature 97.8 [degF] [facility] 10-11-2022 20:56-0500 Body weight 56.24 kg [facility] 10-11-2022 20:56-0500 Diastolic blood pressure 73 mm[Hg] [facility] 10-11-2022 20:56-0500 Heart rate 74 /min [facility] 10-11-2022 20:56-0500 Respiratory rate 16 /min [facility] 10-11-2022 20:56-0500 SaO2% (BldA) [Mass fraction] 100 % [facility] 10-11-2022 20:56-0500 Systolic blood pressure 114 mm[Hg] [facility] 09-28-2022 11:20-0500 Body height 162.56 cm [facility] 09-28-2022 11:20-0500 Body mass index (BMI) [Ratio] 20.9 kg/m2 [facility] 09-28-2022 11:20-0500 Body temperature 97.5 [degF] [facility] 09-28-2022 11:20-0500 Body weight 55.33 kg [facility] 09-28-2022 11:20-0500 Diastolic blood pressure 79 mm[Hg] [facility] 09-28-2022 11:20-0500 Heart rate 72 /min [facility] 09-28-2022 11:20-0500 Respiratory rate 16 /min [facility] 09-28-2022 11:20-0500 SaO2% (BldA) [Mass fraction] 99 % [facility] 09-28-2022 11:20-0500 Systolic blood pressure 129 mm[Hg] [facility] 06-22-2022 14:12-0400 Body temperature 100.2 [degF] Devon Vargas APRN.CUSTODIAL SERVICES MANAGER Work Phone: [facility] 06-22-2022 14:12-0400 Body weight 53.16 kg Devon Vargas APRN.CUSTODIAL SERVICES MANAGER Work Phone: [facility] 06-22-2022 14:12-0400 Diastolic blood pressure 66 mm[Hg] Devon Sam BUSINESS DEPARTMENT CHAIR.CUSTODIAL SERVICES MANAGER Work Phone: [facility] 06-22-2022 14:12-0400 Heart rate 93 /min Devon Sam BUSINESS DEPARTMENT CHAIR.CUSTODIAL SERVICES MANAGER Work Phone: [facility] 06-22-2022 14:12-0400 Respiratory rate 19 /min Devon Sam BUSINESS DEPARTMENT CHAIR.CUSTODIAL SERVICES MANAGER Work Phone: [facility] 06-22-2022 14:12-0400 SaO2% (BldA) [Mass fraction] 97 % Devon Sam BUSINESS DEPARTMENT CHAIR.CUSTODIAL SERVICES MANAGER Work Phone: [facility] 06-22-2022 14:12-0400 Systolic blood pressure 102 mm[Hg] Devon Sam BUSINESS DEPARTMENT CHAIR.CUSTODIAL SERVICES MANAGER Work Phone: [facility] 06-20-2022 14:46-0400 Body temperature 98.01 [degF] Veto Pendlebury BUSINESS DEPARTMENT CHAIR.CUSTODIAL SERVICES MANAGER Work Phone: [facility] 06-20-2022 14:46-0400 Body weight 53.07 kg Veto Pendlebury BUSINESS DEPARTMENT CHAIR.CUSTODIAL SERVICES MANAGER Work Phone: [facility] 06-20-2022 14:46-0400 Diastolic blood pressure 62 mm[Hg] Veto Pendlebury BUSINESS DEPARTMENT CHAIR.CUSTODIAL SERVICES MANAGER Work Phone: [facility] 06-20-2022 14:46-0400 Heart rate 86 /min Veto Pendlebury BUSINESS DEPARTMENT CHAIR.CUSTODIAL SERVICES MANAGER Work Phone: [facility] 06-20-2022 14:46-0400 Respiratory rate 16 /min Veto Pendlebury BUSINESS DEPARTMENT CHAIR.CUSTODIAL SERVICES MANAGER Work Phone: [facility] 06-20-2022 14:46-0400 SaO2% (BldA) [Mass fraction] 98 % Veto Pendlebury BUSINESS DEPARTMENT CHAIR.CUSTODIAL SERVICES MANAGER Work Phone: [facility] 06-20-2022 14:46-0400 Systolic blood pressure 122 mm[Hg] Veto Pendlebury BUSINESS DEPARTMENT CHAIR.CUSTODIAL SERVICES MANAGER Work Phone: [facility] 05-01-2022 12:37-0400 Body temperature 98.91 [degF] Elida Eve BUSINESS DEPARTMENT CHAIR.CUSTODIAL SERVICES MANAGER Work Phone: [facility] 05-01-2022 12:37-0400 Body weight 50.44 kg Elida Eve BUSINESS DEPARTMENT CHAIR.CUSTODIAL SERVICES MANAGER Work Phone: [facility] 05-01-2022 12:37-0400 Diastolic blood pressure 64 mm[Hg] Elida Eve BUSINESS DEPARTMENT CHAIR.CUSTODIAL SERVICES MANAGER Work Phone: [facility] 05-01-2022 12:37-0400 Heart rate 96 /min Elida Eve BUSINESS DEPARTMENT CHAIR.CUSTODIAL SERVICES MANAGER Work Phone: [facility] 05-01-2022 12:37-0400 Respiratory rate 16 /min Elida Eve BUSINESS DEPARTMENT CHAIR.CUSTODIAL SERVICES MANAGER Work Phone: [facility] 05-01-2022 12:37-0400 SaO2% (BldA) [Mass fraction] 99 % Elida Eve BUSINESS DEPARTMENT CHAIR.CUSTODIAL SERVICES MANAGER Work Phone: [facility] 05-01-2022 12:37-0400 Systolic blood pressure 100 mm[Hg] Elida Eve BUSINESS DEPARTMENT CHAIR.CUSTODIAL SERVICES MANAGER Work Phone: [facility] 04-28-2022 12:17-0400 Body temperature 98.2 [degF] Elida Eve BUSINESS DEPARTMENT CHAIR.CUSTODIAL SERVICES MANAGER Work Phone: [facility] 04-28-2022 12:17-0400 Body weight 50.71 kg Elida Eve BUSINESS DEPARTMENT CHAIR.CUSTODIAL SERVICES MANAGER Work Phone: [facility] 04-28-2022 12:17-0400 Diastolic blood pressure 78 mm[Hg] Elida Eve BUSINESS DEPARTMENT CHAIR.CUSTODIAL SERVICES MANAGER Work Phone: [facility] 04-28-2022 12:17-0400 Heart rate 77 /min Elida Eve BUSINESS DEPARTMENT CHAIR.CUSTODIAL SERVICES MANAGER Work Phone: [facility] 04-28-2022 12:17-0400 Respiratory rate 21 /min Elida Eve BUSINESS DEPARTMENT CHAIR.CUSTODIAL SERVICES MANAGER Work Phone: [facility] 04-28-2022 12:17-0400 SaO2% (BldA) [Mass fraction] 99 % Elida Prado APRN.CUSTODIAL SERVICES MANAGER Work Phone: [facility] 04-28-2022 12:17-0400 Systolic blood pressure 122 mm[Hg] Elida Prado BUSINESS DEPARTMENT CHAIR.CUSTODIAL SERVICES MANAGER Work Phone: [facility] 04-05-2022 19:05-0400 Body temperature 99.3 [degF] Katelynn Jiang APRN.CUSTODIAL SERVICES MANAGER Work Phone: [facility] 04-05-2022 19:05-0400 Body weight 51.26 kg Katelynn Jiang APRN.CUSTODIAL SERVICES MANAGER Work Phone: [facility] 04-05-2022 19:05-0400 Diastolic blood pressure 64 mm[Hg] Katelynn Jiang BUSINESS DEPARTMENT CHAIR.CUSTODIAL SERVICES MANAGER Work Phone: [facility] 04-05-2022 19:05-0400 Heart rate 80 /min Katelynn Jiang APRN.CUSTODIAL SERVICES MANAGER Work Phone: [facility] 04-05-2022 19:05-0400 Respiratory rate 18 /min Katelynn Jiang APRN.CUSTODIAL SERVICES MANAGER Work Phone: [facility] 04-05-2022 19:05-0400 SaO2% (BldA) [Mass fraction] 98 % Katelynn Jiang APRN.CUSTODIAL SERVICES MANAGER Work Phone: [facility] 04-05-2022 19:05-0400 Systolic blood pressure 102 mm[Hg] Katelynn Jiang APRN.CUSTODIAL SERVICES MANAGER Work Phone: [facility] 04-03-2022 16:58-0400 Body temperature 98.2 [degF] Veto Wang BUSINESS DEPARTMENT CHAIR.CUSTODIAL SERVICES MANAGER Work Phone: [facility] 04-03-2022 16:58-0400 Body weight 51.98 kg Veto Wang BUSINESS DEPARTMENT CHAIR.CUSTODIAL SERVICES MANAGER Work Phone: [facility] 04-03-2022 16:58-0400 Diastolic blood pressure 64 mm[Hg] Veto Wang BUSINESS DEPARTMENT CHAIR.CUSTODIAL SERVICES MANAGER Work Phone: [facility] 04-03-2022 16:58-0400 Heart rate 72 /min [facility]PARTMENT CHAIR.CUSTODIAL SERVICES MANAGER Work Phone: [facility] 04-03-2022 16:58-0400 Respiratory rate 21 /min [facility] BUSINESS DEPARTMENT CHAIR.CUSTODIAL SERVICES MANAGER Work Phone: [facility] 04-03-2022 16:58-0400 SaO2% (BldA) [Mass fraction] 99 % [facility] BUSINESS DEPARTMENT CHAIR.CUSTODIAL SERVICES MANAGER Work Phone: [facility] 04-03-2022 16:58-0400 Systolic blood pressure 98 mm[Hg] [facility] BUSINESS DEPARTMENT CHAIR.CUSTODIAL SERVICES MANAGER Work Phone: [facility] 03-06-2022 17:07-0400 Body temperature 98 [degF] No Primary Care Physician [facility] Work Phone: 03-06-2022 17:07-0400 Diastolic blood pressure 77 mm[Hg] No Primary Care Physician [facility] Work Phone: 03-06-2022 17:07-0400 Heart rate 54 /min No Primary Care Physician [facility] Work Phone: 03-06-2022 17:07-0400 Respiratory rate 14 /min No Primary Care Physician [facility] Work Phone: 03-06-2022 17:07-0400 SaO2% (BldA) [Mass fraction] 100 % No Primary Care Physician [facility] Work Phone: 03-06-2022 17:07-0400 Systolic blood pressure 126 mm[Hg] No Primary Care Physician [facility] Work Phone: 03-06-2022 12:14-0400 Body height 160.02 cm No Primary Care Physician [facility] Work Phone: 03-06-2022 12:14-0400 Body mass index (BMI) [Ratio] 19.9 kg/m2 No Primary Care Physician [facility] Work Phone: 03-06-2022 12:14-0400 Body weight 51 kg No Primary Care Physician [facility] Work Phone: 03-01-2022 16:50-0400 Body height 160.02 cm No Primary Care Physician [facility] Work Phone: 03-01-2022 16:50-0400 Body mass index (BMI) [Ratio] 19.8 kg/m2 No Primary Care Physician [facility] Work Phone: 03-01-2022 16:50-0400 Body temperature 98.2 [degF] No Primary Care Physician [facility] Work Phone: 03-01-2022 16:50-0400 Body weight 50.8 kg No Primary Care Physician [facility] Work Phone: 03-01-2022 16:50-0400 Diastolic blood pressure 82 mm[Hg] No Primary Care Physician [facility] Work Phone: 03-01-2022 16:50-0400 Heart rate 66 /min No Primary Care Physician [facility] Work Phone: 03-01-2022 16:50-0400 Respiratory rate 16 /min No Primary Care Physician [facility] Work Phone: 03-01-2022 16:50-0400 SaO2% (BldA) [Mass fraction] 99 % No Primary Care Physician [facility] Work Phone: 03-01-2022 16:50-0400 Systolic blood pressure 110 mm[Hg] No Primary Care Physician [facility] Work Phone: 02-17-2022 08:06-0400 Body mass index (BMI) [Ratio] 19.1 kg/m2 No Primary Care Physician [facility] Work Phone: 02-17-2022 08:06-0400 Body temperature 98.7 [degF] No Primary Care Physician [facility] Work Phone: 02-17-2022 08:06-0400 Body weight 50.4 kg No Primary Care Physician [facility] Work Phone: 02-17-2022 08:06-0400 Diastolic blood pressure 90 mm[Hg] No Primary Care Physician [facility] Work Phone: 02-17-2022 08:06-0400 Heart rate 78 /min No Primary Care Physician [facility] Work Phone: 02-17-2022 08:06-0400 Respiratory rate 16 /min No Primary Care Physician [facility] Work Phone: 02-17-2022 08:06-0400 SaO2% (BldA) [Mass fraction] 98 % No Primary Care Physician [facility] Work Phone: 02-17-2022 08:06-0400 Systolic blood pressure 124 mm[Hg] No Primary Care Physician [facility] Work Phone: 02-15-2022 16:40-0400 Body height 162.56 cm [facility] Work Phone: 02-15-2022 16:40-0400 Body mass index (BMI) [Ratio] 19 kg/m2 [facility] Work Phone: 02-15-2022 16:40-0400 Body temperature 99 [degF] [facility] Work Phone: 02-15-2022 16:40-0400 Body weight 50.2 kg [facility] Work Phone: 02-15-2022 16:40-0400 Diastolic blood pressure 80 mm[Hg] [facility] Work Phone: 02-15-2022 16:40-0400 Heart rate 87 /min [facility] Work Phone: 02-15-2022 16:40-0400 Respiratory rate 15 /min [facility] Work Phone: 02-15-2022 16:40-0400 SaO2% (BldA) [Mass fraction] 98 % [facility] Work Phone: 02-15-2022 16:40-0400 Systolic blood pressure 124 mm[Hg] [facility] Work Phone: 01-11-2022 12:10-0400 Body temperature 98.01 [degF] Katelynn Jiang APRN.CUSTODIAL SERVICES MANAGER Work Phone: [facility] 01-11-2022 12:10-0400 Body weight 49.9 kg Katelynn Jiang APRN.CUSTODIAL SERVICES MANAGER Work Phone: [facility] 01-11-2022 12:10-0400 Diastolic blood pressure 62 mm[Hg] Katelynn Jiang APRN.CUSTODIAL SERVICES MANAGER Work Phone: [facility] 01-11-2022 12:10-0400 Heart rate 90 /min Katelynn Jiang APRN.CUSTODIAL SERVICES MANAGER Work Phone: [facility] 01-11-2022 12:10-0400 Respiratory rate 16 /min Katelynn Jiang APRN.CUSTODIAL SERVICES MANAGER Work Phone: [facility] 01-11-2022 12:10-0400 SaO2% (BldA) [Mass fraction] 99 % Katelynn Jiang APRN.CUSTODIAL SERVICES MANAGER Work Phone: [facility] 01-11-2022 12:10-0400 Systolic blood pressure 98 mm[Hg] Katelynn Jiang APRN.CUSTODIAL SERVICES MANAGER Work Phone: [facility] Encounters Encounter Date Encounter Type Care Provider Facility Start: 06-08-2025 End: 06-08-2025 Emergency department patient visit [facility] Start: 06-01-2025 End: 06-01-2025 ambulatory MICHELLE BASHIR Facility:[facility] Start: 05-07-2025 End: 05-07-2025 Emergency department patient visit Piliranulfo Pickering Facility:[facility] Start: 04-24-2025 End: 04-24-2025 ambulatory Michelle Bashir APRN.CUSTODIAL SERVICES MANAGER Work Phone: [facility] Start: 04-24-2025 End: 04-24-2025 Follow-up encounter Michelle Bashir APRN.CUSTODIAL SERVICES MANAGER Work Phone: [facility] Comment on above: ED Follow-up ([facility] 04/18/2025 and [facility] 04/22/2025) Start: 04-22-2025 End: 04-22-2025 Emergency department patient visit TEO BAKERN [facility] Start: 04-18-2025 End: 04-18-2025 Emergency department patient visit Carlos Woodard Eren DO Work Phone: [facility] Emergency Medicine Comment on above: Muscle strain of low er leg, right, initial encounter (Primary Dx) Start: 04-09-2025 End: 04-09-2025 Office outpatient visit 15 minutes Marzena Luu CUSTODIAL SERVICES MANAGER Work Phone: [facility] Comment on above: Right wrist pain (Pr imary Dx) Start: 04-09-2025 End: 04-13-[address] [facility] ([place], [place]) Ambulatory Start: 03-25-2025 End: 03-29-2025 ambulatory MARZENA [facility] Ambulatory Start: 03-25-2025 End: 03-25-2025 Office outpatient new 30 minutes Marzena Luu CUSTODIAL SERVICES MANAGER Work Phone: [facility] Comment on above: Right wrist pain (Pr imary Dx) Start: 03-23-2025 End: 03-23-2025 Telephone encounter Pavel Andre APRN.CUSTODIAL SERVICES MANAGER [facility] Phone[facility] Comment on above: Referral Request Start: 03-20-2025 End: 03-20-2025 Emergency department patient visit KATALINA ZURITADiane DONATO [facility] Start: 03-20-2025 End: 03-20-2025 Patient encounter procedure Michelle Bashir APRN.CUSTODIAL SERVICES MANAGER Work Phone: [facility] Comment on above: Generalized abdomina l pain (Primary Dx); Nausea and vomiting, unspecified vomiting type; Constipation, unspecified constipation type; Anxiety Start: 03-20-2025 End: 03-20-2025 ambulatory MICHELLE BASHIR Facility:[facility] Start: 03-03-2025 End: 03-03-[address] Conor Qureshi MD -[facility] Work Phone: Start: 03-03-2025 End: 03-03-2025 ambulatory Michelle Queden LEAD ATG DEVELOPER-C Work Phone: -[facility] Start: 02-11-2025 End: 02-11-2025 ambulatory Michelle A Queden BUSINESS DEPARTMENT CHAIR.CUSTODIAL SERVICES MANAGER Work Phone: [facility] Start: 02-11-2025 End: 02-11-2025 Follow-up encounter Michelle A Queden BUSINESS DEPARTMENT CHAIR.CUSTODIAL SERVICES MANAGER Work Phone: [facility] Comment on above: ED Follow-up ([facility] 02/04/25) Start: 02-04-2025 End: 02-04-2025 Emergency department patient visit Michelle Queden LEAD ATG DEVELOPER-C Work Phone: -Emergency Department Work Phone: Start: 02-02-2025 End: 02-02-2025 ambulatory Michelle A Queden BUSINESS DEPARTMENT CHAIR.CUSTODIAL SERVICES MANAGER Work Phone: [facility] Start: 02-02-2025 End: 02-02-2025 Follow-up encounter Michelle A Queden BUSINESS DEPARTMENT CHAIR.CUSTODIAL SERVICES MANAGER Work Phone: [facility] Comment on above: ED Follow-up ([facility] 01/28/2025) Start: 01-28-2025 End: 01-28-2025 Emergency department patient visit Michelle Queden LEAD ATG DEVELOPER-C Work Phone: -Emergency Department Work Phone: Start: 12-29-2024 End: 12-29-2024 ambulatory Michelle A Queden BUSINESS DEPARTMENT CHAIR.CUSTODIAL SERVICES MANAGER Work Phone: [facility] Start: 12-29-2024 End: 12-29-2024 Follow-up encounter Michelle A Queden BUSINESS DEPARTMENT CHAIR.CUSTODIAL SERVICES MANAGER Work Phone: [facility] Comment on above: ED Follow-up ([facility] 12/18/2024) Start: 12-18-2024 End: 12-18-2024 Emergency department patient visit Dr. Linden Wallace MD -Emergency Department Work Phone: Start: 06-05-2024 End: 06-05-2024 ambulatory Makenziejamal Corcoran [facility] Start: 06-01-2024 End: 06-01-2024 Emergency department patient visit Maximowinter Lew Facility:[facility] Start: 05-27-2024 End: 05-27-2024 ambulatory Mervat DUENAS Facility:[facility] Start: 05-20-2024 ambulatory Mervat DUENAS Faci lity:[facility] Start: 05-16-2024 End: 05-16-2024 ambulatory Makenzie Clara [facility] Start: 05-11-2024 End: 05-11-2024 ambulatory Estella Bach RN NURSE OUTFITTER CABIN Comment on above: Medication Question Start: 04-28-2024 End: 04-28-2024 Patient encounter procedure Leida Barrios APRN.CUSTODIAL SERVICES MANAGER Work Phone: [facility] Comment on above: Sinobronchitis (Prim zahira Dx) Start: 04-09-2024 End: 04-09-2024 Patient encounter procedure Mckenna Chaparro MD Work Phone: OB/Gynecology Comment on above: Malaise and fatigue (Primary Dx) Start: 03-19-2024 Chart abstracting Vonda aquino MD Work Phone: OB/Gynecology Comment on above: Received Outside Med ical Records Start: 03-18-2024 End: 03-18-2024 Patient encounter procedure [employer] OB/Gynecology Comment on above: with uncer tain viability, single or unspecified fetus (Primary Dx); Subchorionic hematoma in first trimester, single or unspecified fetus Missed (Marely lilly Dx); Screen for STD (sexually transmitted disease); 9 weeks gestation of ; General counseling and advice for contraceptive management Start: 03-17-2024 ambulatory Makenzie Clara FUNCTIONAL CONSULTANT [facility] Start: 03-17-2024 E-mail encounter fro m caregiver [facility] Provider OB/Gynecology Start: 03-17-2024 End: 03-17-2024 Patient encounter procedure Krystal Henderson APRN.CUSTODIAL SERVICES MANAGER Work Phone: OB/Gynecology Comment on above: Threatened miscarria ge (Primary Dx); Nausea and vomiting, unspecified vomiting type Schedule Appointment Start: 03-13-2024 End: 03-13-2024 Patient encounter procedure Krystal Henderson APRN.CUSTODIAL SERVICES MANAGER Work Phone: OB/Gynecology Comment on above: with uncer tain viability, single or unspecified fetus (Primary Dx); Nausea/vomiting in Start: 03-13-2024 ambulatory Krystal ART RN.CUSTODIAL SERVICES MANAGER Work Phone: OB/Gynecology Comment on above: Labs Start: 03-13-2024 E-mail encounter fro m caregiver Krystal Henderson APRN.CUSTODIAL SERVICES MANAGER Work Phone: OB/Gynecology Start: 03-11-2024 ambulatory Makenzie Clara FUNCTIONAL CONSULTANT [facility] Start: 03-10-2024 Telephone encounter Kerri Burgos MD Work Phone: OB/Gynecology Comment on above: Patient Update (Foll ow up from ER) Start: 02-28-2024 ambulatory Makenzie Clara FUNCTIONAL CONSULTANT [facility] Start: 02-28-2024 End: 02-28-2024 Patient encounter procedure Pat DUENAS Work Phone: [facility] Comment on above: Umbilical pain (Prim zahira Dx) Start: 02-19-2024 End: 02-19-2024 Patient encounter procedure Katelynn Jiang APRN.CUSTODIAL SERVICES MANAGER Work Phone: [facility] Comment on above: Nausea and vomiting, unspecified vomiting type (Primary Dx) Start: 11-01-2023 Telephone encounter Katelynn Jiang APRN.VARGAS Work Phone: [facility] Comment on above: Results; Orders Results Start: 10-31-2023 End: 10-31-2023 Patient encounter procedure Latricia Grissom BUSINESS DEPARTMENT CHAIR.CUSTODIAL SERVICES MANAGER Work Phone: [facility] Comment on above: Encounter for screen ing examination for sexually transmitted disease (Primary Dx); Exposure to chlamydia Start: 07-16-2023 Telephone encounter Latricia canales BUSINESS DEPARTMENT CHAIR.CUSTODIAL SERVICES MANAGER Work Phone: [facility] Comment on above: Results Start: 07-16-2023 End: 07-16-2023 Subsequent hospital visit by physician [facility] Work Phone: Radiology Comment on above: Crushing injury of u nspecified left toe(s), initial encounter [S97.102A] Start: 07-15-2023 End: 07-15-2023 Patient encounter procedure Ree Banks BUSINESS DEPARTMENT CHAIR.CUSTODIAL SERVICES MANAGER Work Phone: [facility] Comment on above: Crushing injury of u nspecified left toe(s), initial encounter (Primary Dx) Start: 05-03-2023 Telephone encounter Michelle Bashir BUSINESS DEPARTMENT CHAIR.CUSTODIAL SERVICES MANAGER Work Phone: [facility] Comment on above: Missed Appointment ( 3rd no show in 365 days (3rd letter sent)) Start: 04-26-2023 ambulatory Kika Mccurdy MA [facility] Start: 04-19-2023 End: 04-19-2023 Emergency department patient visit KENDRICK ANDRADE MD [facility] Start: 04-18-2023 ambulatory Kika Mccurdy MA [facility] Start: 04-16-2023 End: 04-16-2023 Emergency department patient visit No Primary Care Physician [facility]gency Department Work Phone: Start: 04-13-2023 End: 04-13-2023 Patient encounter procedure Latricia Grissom BUSINESS DEPARTMENT CHAIR.CUSTODIAL SERVICES MANAGER Work Phone: [facility] Comment on above: Periumbilical abdomi nal pain (Primary Dx) Start: 02-16-2023 End: 02-16-2023 Patient encounter procedure No Primary Care Physician [facility] Work Phone: Start: 01-19-2023 Telephone encounter Michelle Bashir BUSINESS DEPARTMENT CHAIR.CUSTODIAL SERVICES MANAGER Work Phone: [facility] Comment on above: No Show (Second no s how in 365 days.) Start: 12-30-2022 End: 12-30-2022 Emergency department patient visit DR SHANA BOYD MD Facility:B Start: 12-30-2022 End: 12-30-2022 Emergency department patient visit DR SHANA BOYD MD [facility] Start: 12-21-2022 End: 12-21-2022 ambulatory Vitaly Golias PT Work Phone: [facility] Comment on above: Acute pain of left s houlder (Primary Dx); Upper back pain Start: 12-20-2022 ambulatory Michelle Rodriguez en BUSINESS DEPARTMENT CHAIR.CUSTODIAL SERVICES MANAGER Work Phone: [facility] Comment on above: ER F/U Start: 12-18-2022 End: 12-18-2022 Emergency department patient visit [facility] Facility:B Start: 12-18-2022 End: 12-18-2022 Emergency department patient visit [facility] Start: 12-18-2022 End: 12-18-2022 ambulatory Vitaly Golias PT Work Phone: [facility] Comment on above: Acute pain of left s houlder (Primary Dx); Upper back pain Start: 12-06-2022 End: 12-06-2022 ambulatory Rosa Borges HOISTING PILE DRIVING ENGINEER Work Phone: [facility] Comment on above: Acute pain of left s houlder (Primary Dx); Upper back pain Start: 12-01-2022 End: 12-01-2022 ambulatory Vitaly Golias PT Work Phone: [facility] Comment on above: Acute pain of left s houlder (Primary Dx); Upper back pain Start: 11-27-2022 End: 11-27-2022 ambulatory Rosa Borges HOISTING PILE DRIVING ENGINEER Work Phone: [facility] Comment on above: Acute pain of left s hosarath (Primary Dx); Upper back pain Start: 11-20-2022 End: 11-20-2022 Emergency department patient visit [facility] Start: 11-09-2022 Telephone encounter Katelynn Jiang APRN.CUSTODIAL SERVICES MANAGER Work Phone: [facility] Comment on above: Results Start: 11-08-2022 Telephone encounter Abhishek Cole MD Work Phone: [facility] Comment on above: Results (Gilberto) Start: 11-03-2022 Telephone encounter Michelle Bashir APRN.CUSTODIAL SERVICES MANAGER Work Phone: [facility] Comment on above: No Show (First no sh ow in 365 days.) Start: 10-17-2022 End: 10-17-2022 ambulatory Vitaly Pritesh PT Work Phone: [facility] Comment on above: Acute pain of left s hosarath; Upper back pain on left side; Upper back pain Start: 10-11-2022 End: 10-11-2022 Emergency department patient visit [facility] Start: 09-28-2022 End: 09-28-2022 Emergency department patient visit [facility] Start: 09-26-2022 End: 09-26-2022 Subsequent hospital visit by physician [facility] Work Phone: Radiology Comment on above: Upper back pain [M54 .9] Start: 09-26-2022 Telephone encounter Veronica faye PA-C Work Phone: [facility] Comment on above: Results Start: 06-22-2022 End: 06-22-2022 Patient encounter procedure Devon Vargas APRN.CUSTODIAL SERVICES MANAGER Work Phone: [facility] Comment on above: Sore throat (Primary Dx); URI, acute Start: 06-21-2022 Telephone encounter Veto schultz BUSINESS DEPARTMENT CHAIR.CUSTODIAL SERVICES MANAGER Work Phone: [facility] Comment on above: Results Start: 06-20-2022 End: 06-20-2022 Patient encounter procedure Veto Wang APRN.CNP Work Phone: [facility] Comment on above: Viral illness (Prima ry Dx) Start: 05-01-2022 End: 05-01-2022 Patient encounter procedure Elida Prado APRN.CNP Work Phone: [facility] Comment on above: Viral illness (Prima ry Dx); Sore throat; Acute cough; Wheezing Start: 04-28-2022 End: 04-28-2022 Patient encounter procedure Elida Prado APRN.CNP Work Phone: [facility] Comment on above: Upper respiratory sy mptom (Primary Dx); Suspected COVID-19 virus infection; Viral illness Start: 04-05-2022 End: 04-05-2022 Patient encounter procedure Katelynn Jiang APRN.CUSTODIAL SERVICES MANAGER Work Phone: [facility] Comment on above: Close exposure to [place] VID-19 virus (Primary Dx) Start: 04-03-2022 End: 04-03-2022 Patient encounter procedure Veto Wang APRN.CNP Work Phone: [facility] Comment on above: Headache, unspecifie d headache type (Primary Dx) Start: 03-06-2022 Non-patient / Non-visit No [facility] Care Physician [facility] Start: 03-06-2022 End: 03-06-2022 Admission to same day surgery center No Primary Care Physician [facility] Start: 03-01-2022 End: 03-01-2022 Emergency department patient visit No Primary Care Physician [facility] Start: 02-17-2022 End: 02-17-2022 Patient encounter procedure No Primary Care Physician [facility] Start: 02-15-2022 End: 02-15-2022 Emergency department patient visit [facility] Start: 01-11-2022 End: 01-11-2022 Patient encounter procedure Katelynn Jiang APRN.CNP Work Phone: [facility] Comment on above: Sore throat (Primary Dx); Close exposure to COVID-19 virus Start: 09-08-2020 End: 09-08-2020 Patient encounter procedure [facility] Jamie [facility] Start: 08-05-2020 End: 08-05-2020 Patient encounter procedure [facility] Start: 04-08-2020 End: 04-08-2020 Patient encounter procedure [facility] Jamie [facility] Start: 02-13-2020 End: 02-13-2020 Patient encounter procedure [facility] Start: 08-29-2018 End: 03-10-2019 Patient requested procedure Katelynn Jiang APRN.CUSTODIAL SERVICES MANAGER Work Phone: [facility] Procedures Date Procedure Procedure Detail Performing Clinician Start: 04-18-2025 Radiologic examinati on tibia & fibula 2 views Carlos Jason DO Work Phone: Start: 02-04-2025 Urnls dip stick/tabl et reagent auto microscopy Michelle Queden LEAD ATG DEVELOPER-C Work Phone: Start: 02-04-2025 X-ray of chest, PA a nd lateral views Michelle Queden LEAD ATG DEVELOPER-C Work Phone: Start: 02-04-2025 Estimated creatinine clearance Michelle Queden LEAD ATG DEVELOPER-C Work Phone: Start: 01-28-2025 Plain X-ray abdomen Amrita ttreno Queden LEAD ATG DEVELOPER-C Work Phone: Start: 01-28-2025 Estimated creatinine clearance Michelle Queden LEAD ATG DEVELOPER-C Work Phone: Start: 01-28-2025 Urnls dip stick/tabl et reagent auto microscopy Michelle Queden LEAD ATG DEVELOPER-C Work Phone: Start: 12-18-2024 Computed tomography of abdomen and pelvis with intravenous contrast Michelle Queden LEAD ATG DEVELOPER-C Work Phone: Start: 12-18-2024 Estimated creatinine clearance Michelle Bashir LEAD ATG DEVELOPER-C Work Phone: Start: 03-18-2024 Us pelvic nonobstetr ic real-time image complete Krystal Henderson APRN.CUSTODIAL SERVICES MANAGER Work Phone: Start: 07-16-2023 Radex foot complete minimum 3 views Ree Banks BUSINESS DEPARTMENT CHAIR.CUSTODIAL SERVICES MANAGER Work Phone: Start: 04-16-2023 X-ray of chest posteroanterior view No Primary Care Physician Start: 09-28-2022 Plain X-ray of shoulder Start: 09-26-2022 Radex spine thoracic 3 views Veronica Patino PA-C Work Phone: Start: 06-22-2022 STREP A MOLECULAR (POC) [facility] Provider Start: 05-01-2022 STREP A MOLECULAR (POC) Elida Prado BUSINESS DEPARTMENT CHAIR.CUSTODIAL SERVICES MANAGER Work Phone: Start: 03-06-2022 Umbilical hernioplasty No Primary Care Physician Start: 01-11-2022 STREP A MOLECULAR (POC) Katelynn Jiang BUSINESS DEPARTMENT CHAIR.CUSTODIAL SERVICES MANAGER Work Phone: Plan of Treatment Date Care Activity Detail Author Start: 2049 Zoster Vaccines (1 of 2) Zoste r Vaccines (1 of 2) [facility] Start: 01-31-2031 DTaP/Tdap/Td Vaccine s (10 - Td or Tdap) DTaP/Tdap/Td Vaccines (10 - Td or Tdap) [facility] Start: 01-31-2031 Tetanus vaccination Tetanus: Every 1 0yrs [facility] Start: 01-31-2031 Urine microalbumin profile [facility] Start: 05-21-2025 End: 05-21-2025 ambulatory 05/21/2025 1:20 PM EDT [facility] [address], [place] [id number] Michelle Bashir APRN.CUSTODIAL SERVICES MANAGER [address] [place] [address] [facility] Comment on above: GERD Start: 05-07-2025 [facility] Start: 04-20-2025 Influenza vaccination C [facility] Start: 04-09-2025 End: 04-09-2025 Patient encounter procedure 04/09/2025 2:00 PM EDT Office Visit [facility] [address] [place] [address] Bell Marzena Negrete, CUSTODIAL SERVICES MANAGER [address] [place] [address] [facility] Start: 02-04-2025 [facility] Start: 02-04-2025 [facility] Start: 01-28-2025 [facility] Start: 12-18-2024 [facility] Start: 10-30-2024 GC (Gonorrhea) Scree carmencita () GC (Gonorrhea) Screening () [facility] Start: 10-30-2024 Screening for Chlamy aura trachomatis Chlamydia Screening () [facility] Start: 07-29-2024 RSV Vaccine (1 - Ris k 1-dose series) RSV Vaccine (1 - Risk 1-dose series) [facility] Start: 04-20-2024 COVID-19 Vaccine ( season) COVID-19 Vaccine ( season) [facility] Start: 04-20-2024 Covid-19 Vaccine ( season) Covid-19 Vaccine ( season) [facility] Start: 04-20-2024 Covid-19 Vaccine ( season) Covid-19 Vaccine ( season) [facility] Start: 04-20-2024 Influenza vaccination Influenza Vacc ine (#1) [facility] Start: 03-27-2024 End: 03-27-2024 Patient encounter procedure [facility]/Gynecology Comment on above: OB Missed AB follow up Start: 03-18-2024 End: 03-18-2024 Patient encounter procedure 03/18/2024 3:00 PM EDT Routine Office Visit OB/Gynecology [address] [place] [address] Missed AB [facility] Comment on above: Missed AB Start: 03-17-2024 End: 06-16-2024 Choriogonadotropin.beta subunit [Units/volume] in Serum or Plasma [facility] Work Phone: Comment on above: Expected: 03/17/2024 , Expires: 06/16/2024 Start: 03-13-2024 End: 03-13-2024 Patient encounter procedure 03/13/2024 4:00 PM EDT Office Visit OB/Gynecology [address] [place] [address] Krystal Henderson APRN.CUSTODIAL SERVICES MANAGER [address] [place] [address] follow up from [facility] ER ?miscarriage? apt has to be after 3:30 due to work OB/Gynecology Comment on above: follow up from [facility] E R ?miscarriage? apt has to be after 3:30 due to work Start: 03-13-2024 End: 06-12-2024 TYPE + SCREEN [facility] Comment on above: Expected: 03/13/2024 , Expires: 06/12/2024 Start: 03-13-2024 End: 03-13-2025 US Pelvis PELVIC US [facility] Anc Imaging Routine with uncertain viability, single or unspecified fetus Expected: 03/13/2024, Expires: 03/13/2025 [facility] Work Phone: Comment on above: Expected: 03/13/2024 , Expires: 03/13/2025 Start: 11-08-2023 CHLAMYDIA SCREENING (1824) CHLAMYDIA SCREENING (18-24) [facility] Start: 11-08-2023 GC (GONORRHEA) SCREE CARMENCITA (18-24) GC (GONORRHEA) SCREENING (18-24) [facility] Start: 11-08-2023 Screening for Chlamy aura trachomatis Chlamydia Screening (18) [facility] Start: 10-31-2023 End: 01-30-2024 Hepatitis B virus surface Ag [Presence] in Serum [facility] Work Phone: Comment on above: Expected: 10/31/2023 , Expires: 01/30/2024 Start: 10-31-2023 End: 01-30-2024 Hepatitis C virus Ab [Presence] in Serum [facility] Work Phone: Comment on above: Expected: 10/31/2023 , Expires: 01/30/2024 Start: 10-31-2023 End: 01-30-2024 HIV 1+2 Ab [Presence] in Serum or Plasma by Immunoassay [facility] Work Phone: Comment on above: Expected: 10/31/2023 , Expires: 01/30/2024 Start: 10-31-2023 End: 01-30-2024 SYPHILIS TOTAL W/REFLEX [facility] Work Phone: Comment on above: Expected: 10/31/2023 , Expires: 01/30/2024 Start: 08-20-2023 Behavioral Health Screening Behavioral Health Screening [facility] Start: 08-20-2023 Depression Assessment Depression Ass [facility] Start: 04-20-2023 Covid-19 Vaccine ( season) Covid-19 Vaccine ( season) [facility] Start: 04-20-2023 Influenza vaccination [facility] Start: 08-20-2022 DEPRESSION ASSESSMENT DEPRESSION ASS [facility] Start: 07-26-2022 CHLAMYDIA SCREENING (18-24) CHLAMYDIA SCREENING (18-24) [facility] Start: 07-26-2022 GC (GONORRHEA) SCREE CARMENCITA (18-24) GC (GONORRHEA) SCREENING (18-24) [facility] Start: 06-20-2022 End: 07-04-2022 Influenza virus A and B RNA and SARS-CoV-2 (COVID-19) N gene panel - Respiratory specimen by ARLETTE with probe detection COVID WITH FLUA+B, ROUTINE Microbiology Routine Viral illness Expected: 06/20/2022, Expires: 07/04/2022 [facility] Work Phone: Comment on above: Expected: 06/20/2022 , Expires: 07/04/2022 Start: 05-01-2022 End: 05-15-2022 Influenza virus A and B RNA and SARS-CoV-2 (COVID-19) N gene panel - Respiratory specimen by ARLETTE with probe detection COVID WITH FLUA+B, ROUTINE Microbiology Routine Viral illness Expected: 05/01/2022, Expires: 05/15/2022 [facility] Work Phone: Comment on above: Expected: 05/01/2022 , Expires: 05/15/2022 Start: 04-28-2022 End: 05-12-2022 SARS-CoV-2 (COVID-19) RNA [Presence] in Respiratory specimen by ARLETTE with probe detection 2019 CORONAVIRUS Microbiology Routine Upper respiratory symptom Suspected COVID-19 virus infection Viral illness Expected: 04/28/2022, Expires: 05/12/2022 [facility] Work Phone: Comment on above: Expected: 04/28/2022 , Expires: 05/12/2022 Start: 04-20-2022 Influenza vaccination [facility] Start: 04-05-2022 End: 04-19-2022 Influenza virus A and B RNA and SARS-CoV-2 (COVID-19) N gene panel - Respiratory specimen by ARLETTE with probe detection COVID WITH FLUA+B, ROUTINE Microbiology Routine Close exposure to COVID-19 virus Expected: 04/05/2022, Expires: 04/19/2022 [facility] Work Phone: Comment on above: Expected: 04/05/2022 , Expires: 04/19/2022 Start: 03-06-2022 Patient discharge [facility] Work Phone: Start: 01-24-2022 COVID-19 VACCINE (3 - Booster for Pfizer series) COVID-19 VACCINE (3 - Booster for Pfizer series) [facility] Start: 01-11-2022 End: 01-25-2022 Influenza virus A and B RNA and SARS-CoV-2 (COVID-19) N gene panel - Respiratory specimen by ARLETTE with probe detection COVID WITH FLUA+B, ROUTINE Microbiology Routine Sore throat Close exposure to COVID-19 virus Expected: 01/11/2022, Expires: 01/25/2022 [facility] Work Phone: Comment on above: Expected: 01/11/2022 , Expires: 01/25/2022 Start: 10-21-2021 COVID-19 VACCINE (3 - Booster for Pfizer series) COVID-19 VACCINE (3 - Booster for Pfizer series) [facility] Start: 10-21-2021 COVID-19 VACCINE (3 - Pfizer series) COVID-19 VACCINE (3 - Pfizer series) [facility] Start: 08-20-2021 DEPRESSION ASSESSMENT DEPRESSION ASS ESSMENT [facility] Start: 2020 PAP TESTING PAP TESTING [facility] Start: 2020 Screening for malign ant neoplasm of cervix [facility] Start: 2017 Depression Screening Depression Scre ening [facility] Start: 2017 Hepatitis C screening Hepatitis C Sc yesi [facility] Start: 2015 Meningococcal B Vacc ine: Consider Based On Risk (1 of 2 - Patient Seeks Protection) Meningococcal B Vaccine: Consider Based On Risk (1 of 2 - Patient Seeks Protection) [facility] Start: 2015 MENINGOCOCCAL B: Consider based on risk (1 of 2 - Patient Seeks Protection) MENINGOCOCCAL B: Consider based on risk (1 of 2 - Patient Seeks Protection) [facility] Start: 2014 HIV screening HIV Screening [facility] Start: 2013 PEDS TO ADULT TRANSI TION ANNUAL ASSESSMENT PEDS TO ADULT TRANSITION ANNUAL ASSESSMENT [facility] Start: 2011 Adult depression screening assessment [facility] Start: 2011 PEDS TO ADULT TRANSI TION INITIAL DISCUSSION PEDS TO ADULT TRANSITION INITIAL DISCUSSION [facility] Start: 2009 MENINGOCOCCAL B: Consider based on risk (1 of 2 - Risk Bexsero 2-dose series) MENINGOCOCCAL B: Consider based on risk (1 of 2 - Risk Bexsero 2-dose series) [facility] Start: 11-20-2002 Yearly Adult Physical Yearly Adult P [facility] Start: 11-19-2002 History and physical examination, annual for health maintenance Wellness Visit [facility] Start: 1999 HIV screening HIV Screening [facility] Start: 1999 Lipid panel Lipid Panel [facility] ALERE STREP A TEST (AG) ALERE ST REP A TEST (AG) Lab Routine Sore throat Ordered: 06/22/2022 [facility] Work Phone: Comment on above: Ordered: 06/22/2022 BACTERIAL VAGINOSIS NAAT BACTERI AL VAGINOSIS NAAT Lab Routine Encounter for screening examination for sexually transmitted disease 10/31/2023 1:49 PM EDT [facility] Work Phone: GILBERTO/TRICHOMONAS NAAT GILBERTO /TRICHOMONAS NAAT Lab Routine Encounter for screening examination for sexually transmitted disease 10/31/2023 1:49 PM EDT [facility] Work Phone: Chlamydia trachomatis+Neisseria gonorrhoeae DNA [Presence] in Unspecified specimen by ARLETTE with probe detection GONORRHEA/CHLAMYDIA NAAT Lab Routine Encounter for screening examination for sexually transmitted disease Exposure to chlamydia 10/31/2023 1:49 PM EDT [facility] Work Phone: Chlamydia trachomatis+Neisseria gonorrhoeae DNA [Presence] in Unspecified specimen by ARLETTE with probe detection GONORRHEA/CHLAMYDIA NAAT Lab Routine Screen for STD (sexually transmitted disease) 03/18/2024 5:30 PM EDT [facility] Work Phone: End: 03-13-2025 Choriogonadotropin.beta subunit [Units/volume] in Serum or Plasma HCG QUANTITATIVE Lab Routine with uncertain viability, single or unspecified fetus 2x per week for 6 Occurrences starting 03/13/2024 until 03/13/2025 [facility] Comment on above: 2x per week for 6 Oc currences starting 03/13/2024 until 03/13/2025 Choriogonadotropin.b eta subunit [Units/volume] in Serum or Plasma HCG QUANTITATIVE Lab Routine with uncertain viability, single or unspecified fetus 03/13/2024 4:42 PM EDT [facility] Influenza virus A an d B RNA and SARS-CoV-2 (COVID-19) N gene panel - Respiratory specimen by ARLETTE with probe detection COVID WITH FLUA+B, ROUTINE Microbiology Routine URI, acute Ordered: 06/22/2022 [facility] Work Phone: Comment on above: Ordered: 06/22/2022 Patient Education [facility] Work Phone: Patient referral [facility] Work Phone: PT PLAN OF CARE CERTIFICATION PT PLAN OF CARE CERTIFICATION Procedures Routine Acute pain of left shoulder Upper back pain on left side Upper back pain Ordered: 10/17/2022 [facility] Work Phone: Comment on above: Ordered: 10/17/2022 PT PLAN OF CARE CERTIFICATION PT PLAN OF CARE CERTIFICATION Procedures Routine Acute pain of left shoulder Upper back pain Ordered: 12/01/2022 [facility] Work Phone: Comment on above: Ordered: 12/01/2022 TRICHOMONAS VAGINALI S NAAT TRICHOMONAS VAGINALIS NAAT Lab Routine Screen for STD (sexually transmitted disease) 03/18/2024 5:30 PM EDT [facility] Troponin T.cardiac [Mass/volume] in Serum or Plasma by High sensitivity method [facility] End: 08-13-2024 XR FOOT GENERAL 3V AP/LAT/OBL LEFT XR FOOT GENERAL 3V AP/LAT/OBL LEFT Radiology Routine Crushing injury of unspecified left toe(s), initial encounter 1 Occurrences starting 07/15/2023 until 08/13/2024 [facility] Work Phone: Comment on above: 1 Occurrences starti ng 07/15/2023 until 08/13/2024 [facility] Immunizations Immunization Date Immunization Notes Care Provider Jessica mars 08-26-2021 COVID-19 original vaccine, age 12+ yr, monovalent (PFIZER-BIONTECH - PURPLE TOP) Michelle Bashir BUSINESS DEPARTMENT CHAIR.CUSTODIAL SERVICES MANAGER Work Phone: [facility] 08-05-2021 COVID-19 original vaccine, age 12+ yr, monovalent (PFIZER-BIONTECH - PURPLE TOP) Michelle Bashir BUSINESS DEPARTMENT CHAIR.CUSTODIAL SERVICES MANAGER Work Phone: [facility] 01-31-2021 RHO(D) immune globul in- IV or IM Katelynn Jiang BUSINESS DEPARTMENT CHAIR.CUSTODIAL SERVICES MANAGER Work Phone: [facility] Work Phone: 01-31-2021 tetanus toxoid, redu brien diphtheria toxoid, and acellular pertussis vaccine, adsorbed Katelynn Jiang APRN.CUSTODIAL SERVICES MANAGER Work Phone: [facility] Work Phone: 04-29-2019 influenza, injectabl e, quadrivalent, contains preservative Katelynn Jiang APRN.CUSTODIAL SERVICES MANAGER Work Phone: [facility] 04-29-2019 influenza virus vacc ine, unspecified formulation Michelle Bashir BUSINESS DEPARTMENT CHAIR.CUSTODIAL SERVICES MANAGER Work Phone: [facility] 04-24-2019 influenza, injectabl e, quadrivalent, preservative free Michelle Bashir LEAD ATG DEVELOPER-C Work Phone: [facility] 04-24-2019 influenza, seasonal, injectable [facility] 04-24-2019 influenza, seasonal, injectable, preservative free Katelynn Jiang APRN.CUSTODIAL SERVICES MANAGER Work Phone: [facility] Work Phone: 04-01-2019 tetanus toxoid, redu brien diphtheria toxoid, and acellular pertussis vaccine, adsorbed Katelynn Jiang APRN.CUSTODIAL SERVICES MANAGER Work Phone: [facility] Work Phone: 02-10-2019 RHO(D) immune globul in- IV or IM Katelynn Jiang APRN.CUSTODIAL SERVICES MANAGER Work Phone: [facility] 02-10-2019 tetanus toxoid, redu brien diphtheria toxoid, and acellular pertussis vaccine, adsorbed Katelynn Jiang APRN.CUSTODIAL SERVICES MANAGER Work Phone: [facility] 05-02-2016 meningococcal polysaccharide (groups A, C, Y and W-135) diphtheria toxoid conjugate vaccine (MCV4P) Katelynn Jiang APRN.CUSTODIAL SERVICES MANAGER Work Phone: [facility] 05-13-2015 Human Papillomavirus 9-valent vaccine Katelynn Jiang APRN.CUSTODIAL SERVICES MANAGER Work Phone: [facility] Work Phone: 09-04-2014 human papilloma viru s vaccine, quadrivalent Katelynn Jiang APRN.CUSTODIAL SERVICES MANAGER Work Phone: [facility] Work Phone: 07-01-2014 human papilloma viru s vaccine, quadrivalent Katelynn Jiang APRN.[facility] Work Phone: [facility] 07-01-2014 influenza, injectabl e, quadrivalent, preservative free Katelynn Jiang APRN.[facility] Work Phone: [facility] 07-01-2014 meningococcal polysaccharide (groups A, C, Y and W-135) diphtheria toxoid conjugate vaccine (MCV4P) Katelynn Jiang APRN.[facility] Work Phone: [facility] 07-01-2014 varicella virus vaccine Lucilajessenia andres Apolinar MIKE.[facility] Work Phone: [facility] 04-29-2012 tetanus toxoid, redu brien diphtheria toxoid, and acellular pertussis vaccine, adsorbed Katelynn Jiang APRN.[facility] Work Phone: [facility] 03-27-2006 varicella virus vaccine Lucila nialivia Jiang APRN.[facility] Work Phone: [facility] Work Phone: 03-31-2005 diphtheria, tetanus toxoids and acellular pertussis vaccine Katelynn Apolinar MIKE.[facility] Work Phone: [facility] Work Phone: 03-31-2005 measles, mumps and rubella virus vaccine Katelynn Jiang APRN.[facility] Work Phone: [facility] Work Phone: 03-31-2005 poliovirus vaccine, inactivated Katelynn Jiang APRN.[facility] Work Phone: [facility] Work Phone: 04-15-2004 tuberculin skin test ; purified protein derivative solution, intradermal Mckenna Chaparro MD Work Phone: [facility] 04-23-2003 tuberculin skin test ; purified protein derivative solution, intradermal Mckenna Chaparro MD Work Phone: [facility] 09-12-2002 diphtheria, tetanus toxoids and acellular pertussis vaccine Katelynn Jiang APRN.[facility] Work Phone: [facility] Work Phone: 05-21-2001 poliovirus vaccine, inactivated Katelynn Jiang APRN.[facility] Work Phone: [facility] Work Phone: 02-18-2001 haemophilus influenz ae type b conjugate and Hepatitis B vaccine Katelynn Jiang APRN.[facility] Work Phone: [facility] Work Phone: 02-18-2001 haemophilus influenz ae type b vaccine, HbOC conjugate Katelynn Jiang APRN.[facility] Work Phone: [facility] Work Phone: 02-18-2001 hepatitis B vaccine, pediatric or pediatric/adolescent dosage Katelynn Jiang APRN.[facility] Work Phone: [facility] Work Phone: 02-18-2001 measles, mumps and rubella virus vaccine Katelynn Jiang APRN.[facility] Work Phone: [facility] Work Phone: 04-24-2000 diphtheria, tetanus toxoids and acellular pertussis vaccine Katelynn Jiang APRN.[facility] Work Phone: [facility] Work Phone: 04-24-2000 haemophilus influenz ae type b vaccine, HbOC conjugate Katelynn Jiang APRN.[facility] Work Phone: [facility] Work Phone: 02-16-2000 diphtheria, tetanus toxoids and acellular pertussis vaccine Katelynn Jiang APRN.[facility] Work Phone: [facility] Work Phone: 02-16-2000 haemophilus influenz ae type b conjugate and Hepatitis B vaccine Katelynn Jiang APRN.[facility] Work Phone: [facility] Work Phone: 02-16-2000 haemophilus influenz ae type b vaccine, HbOC conjugate Katelynn Jiang APRN.CUSTODIAL SERVICES MANAGER Work Phone: [facility] Work Phone: 02-16-2000 hepatitis B vaccine, pediatric or pediatric/adolescent dosage Katelynn Jiang BUSINESS DEPARTMENT CHAIR.[facility] Work Phone: [facility] Work Phone: 02-16-2000 poliovirus vaccine, inactivated Katelynn James BUSINESS DEPARTMENT CHAIR.[facility] Work Phone: [facility] Work Phone: 1999 diphtheria, tetanus toxoids and acellular pertussis vaccine Katelynn Apolinar ANDINON.[facility] Work Phone: [facility] Work Phone: 1999 haemophilus influenz ae type b conjugate and Hepatitis B vaccine Katelynn Apolinar ADNINON.[facility] Work Phone: [facility] Work Phone: 1999 haemophilus influenz ae type b vaccine, HbOC conjugate Katelynn Apolinar ANDINON.[facility] Work Phone: [facility] Work Phone: 1999 hepatitis B vaccine, pediatric or pediatric/adolescent dosage Katelynn James BUSINESS DEPARTMENT CHAIR.[facility] Work Phone: [facility] Work Phone: 1999 poliovirus vaccine, inactivated Katelynn James BUSINESS DEPARTMENT CHAIR.[facility] Work Phone: [facility] Work Phone: Payers Date Payer Category Payer Managed Care HMO (unspecified) [facility] HMO/CHOICE PLUS/SARWAT/SARWAT PLUS [id number] 2024 Self-pay [id number] 2024 Medicaid (Managed Care) 1.2. [id number] 2022 Unknown [id number] 2020 Private Health Insurance [facility] CHOICE PLUS [id number] 2020-Present [phone] [address] [place] [address] O [id number]. [id number] 2020 Private Health Insurance [id number] 2018 Medicaid [employer] [facility] [place] [id number] 2018-Present [phone] [address] [address] [place] [address] Medicaid [id number] 2018 Medicaid [id number]. [id number] 2018 Private Health Insurance [id number] 1999 Unknown [id number] 2.16.840.1.982870.3.579.2. 651 1999 Unknown [id number] 2.16.840.1.718245.3.579.2. 651 1999 Unknown [id number] 2.16.840.1.571284.3.579.2. 627 1999 Unknown [id number] 2.16.840.1.205923.3.579.2. 627 1999 Unknown [id number] 2.16.840.1.676905.3.579.2. 903 1999 Unknown [id number] 2.16.840.1.833106.3.579.2. 903 1999 Unknown [id number] 2.16.840.1.166522.3.579.2. 903 1999 Unknown [id number] 2.16.840.1.430901.3.579.2. 903 1999 Unknown [id number] 2.16.840.1.725814.3.579.2. 903 1999 Unknown [id number] 2.16.840.1.823241.3.579.2. 903 1999 Unknown [id number] 2.16.840.1.921620.3.579.2. 1243 1999 Unknown [id number] 2.16.840.1.739499.3.579.2. 902 1999 Unknown [id number] 2.16.840.1.915857.3.579.2. 902 1999 Unknown [id number] 2.16.840.1.725883.3.579.2. 902 Unknown [id number] Unknown [id number] Unknown [id number] 2.16.840.1.996093.3.579.2. 462 Unknown [id number] 2.16.840.1.036187.3.579.2. 462 Unknown [id number] 2.16.840.1.978349.3.579.2. 462 Unknown [id number] 2.16.840.1.788880.3.579.2. 462 Unknown [id number] 2.16840.1.595871.3.579.2. 462 Unknown [id number] 2..840.1.674288.3.579.2. 462 Unknown [id number] 2.16.840.1.435441.3.579.2. 462 Unknown [id number] 2.16.840.1.401014.3.579.2. 462 Social History Date Type Detail Facility Start: 08-24-2020 End: 04-09-2024 Tobacco smoking status NHIS Ex-smoker [facility] End: 04-26-2020 History of tobacco use Current smoker [facility] End: 04-26-2020 History of tobacco use Cigarette Smoker [facility] Start: 08-24-2020 End: 03-13-2024 Cigarettes smoked current (pack per day) - Reported 0.5 [facility] Work Phone: Start: 08-24-2020 End: 04-09-2024 Tobacco use and exposure Smokeless tobacco non-user [facility] Start: 01-11-2022 End: 03-20-2025 Alcohol intake Current non-drinker of alcohol (finding) [facility] Start: 2000 Sex Assigned At Female [facility] Start: 01-01-2022 End: 04-05-2022 Exposure to SARS-CoV-2 (event) Yes [facility] Work Phone: Start: 02-15-2022 End: 03-25-2025 Tobacco smoking status [facility] Unknown if ever smoked [facility] Start: 05-03-2019 None [facility] Start: 04-15-2020 Cigarettes [facility] Start: 04-21-2022 End: 06-20-2022 Exposure to SARS-CoV-2 (event) Not sure [facility] Start: 09-26-2022 Tobacco use and exposure User of smokeless tobacco [facility] Start: 09-26-2022 Tobacco Comment vape [facility] Tobacco smoking status No Smoking Status Entered [facility] Start: 04-13-2023 End: 03-13-2024 Tobacco use panel [facility] Work Phone: Start: 07-21-2012 End: 07-15-2022 Adult Depression Screening Assessment 0 [facility] Work Phone: Start: 04-22-2020 Gender identity Identifies as female gender (finding) [facility] Start: 01-01-2024 [facility] Start: 02-04-2025 End: 05-07-2025 Tobacco smoking status NHIS Smokes tobacco daily (finding) [facility] Start: 04-06-2025 End: 04-16-2025 Alcoholic beverage intake Ex-drinker (finding) [facility] Start: 2000 Sex assigned at Not on file O [facility] Start: 03-24-2025 Sexual orientation Heterosexual (fin ding) [facility] Start: 04-18-2025 Tobacco smoking status NHIS Never smoked tobacco [facility] Start: 04-18-2025 Alcoholic beverage intake Lifetime non-drinker (finding) [facility] Work Phone: NEGATED: Highlighted row [facility] Goals Date Patient Goal Desired Activity /State Functional Status Date Assessment Result Facility 04-18-2025 Cable - suicide severity rating scale screener - recent [C-SSRS] [facility] Work Phone: 04-19-2023 Functional Status ID band on, Call device within reach, Bed in low position, Wheels locked, Upper/Half-Length side-rails up [facility] 12-30-2022 Functional Status Standard Safet y ID band on, Call device within reach, Bed in low position, Wheels locked, Upper/Half-Length side-rails up, Phone within reach, Visitor at bedside [facility] 12-18-2022 Functional Status Standard Safet y ID band on, Call device within reach, Bed in low position, Wheels locked, Upper/Half-Length side-rails up, Bedside Cart Locked, Safety level maintained [facility] 03-06-2022 Functional status Ambulates;Bath room Privilege [facility] Work Phone: 09-04-2014 Are you deaf, or do you have serious difficulty hearing No 09/04/2014 9:50 AM Brissa Barrett LPN No [facility] 09-04-2014 Are you blind, or do you have serious difficulty seeing, even when wearing glasses No 09/04/2014 9:50 AM Brissa Barrett LPN No [facility] 09-04-2014 Do you have serious difficulty walking or climbing stairs No 09/04/2014 9:50 AM Brissa Barrett LPN No [facility] 09-04-2014 Do you have difficul ty dressing or bathing No 09/04/2014 9:50 AM Brissa Barrett LPN No [facility] Mental Status Date Assessment Result Facility 02-04-2025 Cognitive function Level Of Cons ciousness Awake;Alert;Appropriate;Fol lows Commands [facility] Work Phone: 04-19-2023 Mental Status Oriented x 4 [facility] 04-16-2023 Cognitive function Level Of Cons ciousness Awake;Alert;Appropriate [facility] Work Phone: 12-30-2022 Mental Status Orientation Oriented x 4 [facility] 12-18-2022 Mental Status Orientation Oriented x 4 [facility] 03-06-2022 Cognitive function Voice/Name [facility] Work Phone: 03-06-2022 Cognitive function Patient Shweta lucero Person;Place;Time [facility] Work Phone: 09-04-2014 Because of a physica l, mental, or emotional condition, do you have serious difficulty concentrating, remembering, or making decisions Yes 09/04/2014 9:50 AM Brissa Barrett LPN Yes [facility] Clinical Notes 11-18-2020 to 06-12-2025 Note Date & Type Note Facility 06-12-2025 Note HNO ID: [id number] Author: MAKENZIE CORCORAN LPN Service: ? Author Type: Licensed Nurse Type: Progress Notes Filed: 06/12/2025 11:14 Note Text: ED Follow-Up Note Provider Action / FYI: Call completed by: EDIE Patient seen in ED: Out of Network ED Contact made with Patient: No, unable to leave message. not set up Makenzie Corcoran LPN June 12, 2025 11:14 AM [facility] 06-12-2025 Note Patient Outreach (AG FAMPLE) ---- KARENBOWEN Diane ([id number]) 89 F Date Time Provider Department 06/12/25 MICHELLE BASHIR During your visit today, we recorded the following information about you: Makenzie Corcoran LPN 06/12/2025 11:14 AM Signed ED Follow-Up Note Provider Action / FYI: Call completed by: EDIE Patient seen in ED: Out of Network ED Contact made with Patient: No, unable to leave message. not set up Makenzie Corcoran LPN June 12, 2025 11:14 AM Allergies As of Date: 06/12/2025 Noted Allergy Reaction SEASONAL ALLERGIES 09/01/2010 5 - Intolerance Comments: Trees, ragweed Date Reviewed: 03/20/2025 Reviewed by: Michelle Bashir APRN.CUSTODIAL SERVICES MANAGER - Fully Assessed Reason for Visit: ED Follow-up [821] Cmt: [facility] 06/08/2025 Prescriptions as of 06/12/2025 - omeprazole (PRILOSEC) 20 mg capsule Take 1 capsule by mouth every morning. - ondansetron (ZOFRAN) 4 mg tablet Take 1 tablet by mouth every 8 hours as needed. - psyllium husk (METAMUCIL) 0.4 gram cap Take 1 capsule by mouth once daily as needed. - levonorgestrel (LILETTA INTRAUTERINE) 52 mg by INTRAUTERINE route one time only. - vits62/FA/om3/dha/epa ( GUMMY ORAL) Take by mouth once daily. Has iron but unsure if folic acid - albuterol HFA (PROVENTIL HFA, VENTOLIN HFA) 90 mcg/actuation inhaler Inhale 2 Puffs as instructed every 4 hours as needed. Problem List As Of Date 06/12/2025 Noted Resolved Chronic nasal congestion [R09.81] 03/08/2012 03/10/2019 Quit smoking [Z87.891] 08/29/2018 08/26/2020 History of anxiety [Z86.59] 08/29/2018 Patient request for diagnostic testing [Z01.89] 08/29/2018 03/10/2019 Encounter for test, result positive [*08/29/2018 08/26/2020 Rh negative, antepartum [O26.899, Z67.91] 08/30/2018 04/09/2024 Benign gestational thrombocytopenia, antepartum*12/13/2018 08/26/2020 Marijuana use [F12.90] 08/26/2020 Low-lying placenta [O44.40] 11/18/2020 02/02/2021 Marginal insertion of umbilical cord affecting *11/18/2020 04/09/2024 Supervision of other high risk pregnancies, thi*01/31/2021 04/09/2024 Anxiety [F41.9] 10/06/2022 Closed head injury [S09.90XA] 10/06/2022 Contusion of multiple sites [T07.XXXA] 10/06/2022 History of umbilical hernia repair [Z98.890, Z8*10/06/2022 Muscle strain of left shoulder region [S46.912A]10/06/2022 Acute pain of left shoulder [M25.512] 10/17/2022 Upper back pain [M54.9] 10/17/2022 Encounter Status:Closed by MAKENZIE CORCORAN on 06/12/25 [facility] 06-01-2025 Note SARS-COV-2 (AGENT OF COVID-19) RNA: Not detected INFLUENZA A RNA: Not detected INFLUENZA B RNA: Not detected RESPIRATORY SYNCYTIAL VIRUS (RSV) RNA: Not detected [facility] Comment on above: Performed By: #### 9 [id number] #### [facility] CLIA [id number] [address] [place] [address] OF [facility] 06-01-2025 Note HNO ID: [id number] Author: PAT MCINTOSH PA Service: ? Author Type: Physician Arterial Embalmer Type: Progress Notes Filed: 06/01/2025 16:31 Note Text: [facility] DEANNA Jones is a 24 year old female. Patient presents with: Sinus Problem: Sinus, congestion, fever, nausea and bodyaches x 2 days HPI The patient is a 24-year-old female presenting with fever, congestion, and sneezing. Fever, Congestion, and Sneezing: - Onset of symptoms a few days ago. - Fever of 99.9 degreeF this morning; took Tylenol around 08:00. - Reports congestion, sneezing, and mild cough. - Denies known exposure to sick contacts. - Used albuterol inhaler a few times last night due to congestion when lying down. - Describes asthma as borderline, using inhaler PRN. - Reports ear pressure. PAST MEDICAL HISTORY Diagnosis Date Allergic rhinitis anxiety Closed head injury 10/06/2022 Cyst of left ovary 03/15/2024 Low-lying placenta (HCC) 11/18/2020 01/31/21- No longer low lying via ultrasound. Anahy Weeks APRN.CN 11/18/20:recheck placental location in 8-12 WEEKS. Kerri Godwin MD Menarche 09/2011 Miscarriage at 8 to 28 weeks gestation (HCC) 03/15/2024 NEGATIVE HISTORY OF 04/29/2012 Normal Color Vision NEGATIVE MEDICAL HISTORY PAST SURGICAL HISTORY Procedure Laterality Date DANDC, DIAG AND/OR THERAPEUTIC 03/20/2024 Suction DANDC NEXPLANON INSERTION 05/31/2015 REPAIR EPIGASTRIC HERNIA,REDUC TONSILLECTOMY PRIMARY/SECONDARY ALLERGIES Seasonal Allergies MEDICATIONS levonorgestrel (LILETTA INTRAUTERINE) 52 mg by INTRAUTERINE route one time only. albuterol HFA (PROVENTIL HFA, VENTOLIN HFA) 90 mcg/actuation inhaler Inhale 2 Puffs as instructed every 4 hours as needed. omeprazole (PRILOSEC) 20 mg capsule Take 1 capsule by mouth every morning. (Patient not taking: Reported on 06/01/2025) ondansetron (ZOFRAN) 4 mg tablet Take 1 tablet by mouth every 8 hours as needed. (Patient not taking: Reported on 06/01/2025) psyllium husk (METAMUCIL) 0.4 gram cap Take 1 capsule by mouth once daily as needed. (Patient not taking: Reported on 06/01/2025) vits62/FA/om3/dha/epa ( GUMMY ORAL) Take by mouth once daily. Has iron but unsure if folic acid (Patient not taking: Reported on 04/28/2024) FAMILY HISTORY Problem Relation Age of Onset Heart Mother other (bipolar) Father No Known Problems Sister No Known Problems Sister No Known Problems Brother No Known Problems Brother Heart Maternal Grandmother No Known Problems Maternal Grandfather other (bipolar) Paternal Grandmother other (bipolar) Paternal Grandfather other (Negative) Other Heart Brother 14 pericarditis SOCIAL HISTORY[1] Review of Systems Constitutional: (+) fever Ears/Nose/Mouth/Throat: (+) sneezing, (+) nasal congestion, (+) ear pressure Respiratory: (+) cough Gastrointestinal: (+) nausea Objective BP 110/78 Pulse 100 Temp 37 ?C (98.6 ?F) (Tympanic) Resp 18 Wt 56.1 kg (123 lb 10.9 oz) LMP 12/24/2023 (Approximate) SpO2 98% BMI 21.74 kg/m? Physical Exam General: Not in acute distress, normal appearance, well-developed, not toxic-appearing HEENT - Eyes: Conjunctivae normal - Ears: Right ear: Mild serous otitis media, no signs of infection; Left ear: Mild serous otitis media, no signs of infection - Nose/Sinuses: Nose + congestion - Oropharynx: Mucous membranes moist, oropharynx without erythema or exudate, uvula midline Cardiovascular - Rate/Rhythm: Normal rate and regular rhythm - Heart Sounds: Normal heart sounds Pulmonary - Lung Sounds: Normal breath sounds - Respiratory Effort: Pulmonary effort normal Neurologic - Mental Status: Alert Skin: Skin warm and dry Lymphatic - Cervical: No cervical adenopathy { 1. URI, acute (J06.9) - Symptoms include sneezing, congestion, low-grade fever (99.9 degreeF), mild cough, and nausea. - Physical exam: clear lungs, non-erythematous throat, serous fluid behind tympanic membranes without signs of infection. - Most likely etiology is viral. - COVID-19 swab ordered; results expected by tomorrow morning. - Recommended Flonase nasal spray for sinus congestion. - Provided work note for absence due to fever and potential viral infection. and Recording using [employer] software for draft documentation of the visit was discussed with the patient/authorized safety representative; all questions welcomed and answered. Patient/authorized safety representative agreed to proceed History and Record Review Systemic symptoms present included: Fever Differential Diagnoses - URI is more likely for the following reason(s): suggested by HANDP - Sinusitis is less likely for the following reason(s): Duration of symptoms, HANDP not suggestive - Pneumonia is less likely for the following reason(s): HANDP not suggestive Disposition The patient was discharged. OTC Medications were advised: Cough and c (more content not included)... [facility] 05-15-2025 Note HNO ID: [id number] Author: MAKENZIE CORCORAN LPN Service: ? Author Type: Licensed Nurse Type: Progress Notes Filed: 05/15/2025 10:52 Note Text: ED Follow-Up Note Provider Action / FYI: Call completed by: EDIE Patient seen in ED: Out of Network ED Contact made with Patient: No, unable to leave message. Makenzie Corcoran LPN May 15, 2025 10:52 AM [facility] 05-12-2025 Note HNO ID: [id number] Author: MAKENZIE CORCORAN LPN Service: ? Author Type: Licensed Nurse Type: Progress Notes Filed: 05/12/2025 13:40 Note Text: ED Follow-Up Note Provider Action / FYI: Call completed by: EDIE Patient seen in ED: Out of Network ED Contact made with Patient: No, unable to leave message. has not been set up yet. Will reattempt call Makenzie Corcoran LPN May 12, 2025 1:40 PM [facility] 05-12-2025 Note Patient Outreach (AG FAMPLE) ---- BOWEN JONES ([id number]) 89 F Date Time Provider Department 05/12/25 MICHELLE BASHIR During your visit today, we recorded the following information about you: Makenzie Corcoran LPN 05/12/2025 1:40 PM Signed ED Follow-Up Note Provider Action / FYI: Call completed by: EDIE Patient seen in ED: Out of Network ED Contact made with Patient: No, unable to leave message. VM has not been set up yet. Will reattempt call Makenzie Corcoran LPN May 12, 2025 1:40 PM Makenzie Corcoran LPN 05/15/2025 10:52 AM Signed ED Follow-Up Note Provider Action / FYI: Call completed by: EDIE Patient seen in ED: Out of Network ED Contact made with Patient: No, unable to leave message. Makenzie Corcoran LPN May 15, 2025 10:52 AM Allergies As of Date: 05/12/2025 Noted Allergy Reaction SEASONAL ALLERGIES 09/01/2010 5 - Intolerance Comments: Trees, ragweed Date Reviewed: 03/20/2025 Reviewed by: Michelle Bashir APRN.CUSTODIAL SERVICES MANAGER - Fully Assessed Reason for Visit: ED Follow-up [821] Cmt: [facility] 2000 Prescriptions as of 05/15/2025 - omeprazole (PRILOSEC) 20 mg capsule Take 1 capsule by mouth every morning. - ondansetron (ZOFRAN) 4 mg tablet Take 1 tablet by mouth every 8 hours as needed. - psyllium husk (METAMUCIL) 0.4 gram cap Take 1 capsule by mouth once daily as needed. - levonorgestrel (LILETTA INTRAUTERINE) 52 mg by INTRAUTERINE route one time only. - vits62/FA/om3/dha/epa ( GUMMY ORAL) Take by mouth once daily. Has iron but unsure if folic acid - albuterol HFA (PROVENTIL HFA, VENTOLIN HFA) 90 mcg/actuation inhaler Inhale 2 Puffs as instructed every 4 hours as needed. Problem List As Of Date 05/12/2025 Noted Resolved Chronic nasal congestion [R09.81] 03/08/2012 03/10/2019 Quit smoking [Z87.891] 08/29/2018 08/26/2020 History of anxiety [Z86.59] 08/29/2018 Patient request for diagnostic testing [Z01.89] 08/29/2018 03/10/2019 Encounter for test, result positive [*08/29/2018 08/26/2020 Rh negative, antepartum [O26.899, Z67.91] 08/30/2018 04/09/2024 Benign gestational thrombocytopenia, antepartum*12/13/2018 08/26/2020 Marijuana use [F12.90] 08/26/2020 Low-lying placenta [O44.40] 11/18/2020 02/02/2021 Marginal insertion of umbilical cord affecting *11/18/2020 04/09/2024 Supervision of other high risk pregnancies, thi*01/31/2021 04/09/2024 Anxiety [F41.9] 10/06/2022 Closed head injury [S09.90XA] 10/06/2022 Contusion of multiple sites [T07.XXXA] 10/06/2022 History of umbilical hernia repair [Z98.890, Z8*10/06/2022 Muscle strain of left shoulder region [S46.912A]10/06/2022 Acute pain of left shoulder [M25.512] 10/17/2022 Upper back pain [M54.9] 10/17/2022 Encounter Status:Closed by MAKENZIE CORCORAN on 05/12/25 [facility] 05-07-2025 Discharge summary [facility] 05-07-2025 Discharge summary Note Date/Time May 07, 2025 3:20pm [facility] Medical Records Department [address] [place] [id number] Emergency Department Summary 05/07/25 MR#: [id number] Acct: [id number] Name: BOWEN JONES Rep #:[id number] : 2000 24 From: Pili Argueta PCP: DIPESH Goel Status:REG E R Location: ED HPI History of Present Illness Chief Complaint: Upper Extremity Injury Informant: patient Narrative Narrative: Patient is a 24-year-old female [id number] presenting with worsening left shoulder pain. Denies any injury. 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 She denies any new change in her exercise regiment. States she has pain in her left anterior shoulder that is worse when she tries to abduct or flex her shoulder. Denies any associated numbness or tingling. No other complaints or concerns at this time. [facility] Medical History IUD (intrauterine device) in place Smoker Acute bronchitis Irregular heart beat Migraines Heart palpitations Marijuana use Alcohol use Easy bruising Restless legs Back pain Injury of head and neck Syncope Loss of consciousness Heartburn Bronchitis with influenza Shortness of breath on exertion Vapes nicotine containing substance Leg cramps Hypotension Vaginal delivery SROM (spontaneous rupture of membranes) Anxiety (05/06/24) Home Medications ?Medication ?Instructions ?Recorded ?Last Taken ?Type albuterol sulfate 90 mcg/actuation 1 - 2 puff inhalati on Q4H PRN PRN 04/15/20 Unknown Rx aerosol inhaler Wheezing ##1 dicyclomine 10 mg capsule 20 mg (2 x 10 mg) PO TIDAC # 20 01/28/25 Unknown Rx CAPSULES prednisone 20 mg tablet 40 mg (2 x 20 mg) PO DAILY # 8 tabs 05/07/25 Unknown Rx Allergy/AdvReac Type Severity Reaction Status Date / Time No Known Allergies Allergy Verified 05/07/25 13:38 Family History Mother Heart disease Cancer skin Grandmother Hypertension Seizures Thyroid disorder Cancer skin Grandfather Cancer skin Surgical History S/P hernia repair History of umbilical hernia repair [place] teeth removed History of tonsillectomy Social History Smoking Status: Current every day smoker tobacco type: e-cigarettes alcohol intake: never substance use type: does not use ROS ROS ED Constitutional Constitutional ED: Denies chills or fever(s) Musculoskeletal Musculoskeletal: Reports other Details: Left shoulder pain Integumentary Denies Abrasions or rash Neurologic Neurologic: Denies paresthesias or weakness Hematologic/Lymphatic Hematologic/Lymphatic: Denies easy bleeding or easy bruising EXAM Physical Exam Const Vital Signs: 05/07/25 13:36 Temperature 97.7 F L Temperature Source Oral Pulse Rate 90 Respiratory Rate 16 Blood Pressure 127/93 H Blood Pressure Mean 104 Pulse Ox 98 Oxygen Delivery Method Room Air Positive well nourished and well developed General Appearance ED: well developed and NAD HEENT Reports moist mucous membranes Neck full ROM and supple Chest Wall inspection of chest normal and palpation of chest normal Resp normal respiratory effort Cardio regular rate and regular rhythm Cardio Narrative: 2+ radial pulse Extremity Extremity Narrative: No obvious deformity. No tenderness over the left clavicle. Tender to palpation of the bicipital groove of the left shoulder. Tenderness along head of the bicep. No significant pain with passive range of motion of the shoulder. Increased pain at approximately 90 degrees of flexion and abduction. 5/5 strength with bicep curl as well as extension of the arm. Equal bowling ball molder strength bilaterally. No overlying rash or skin changes. Psych mental status grossly normal Skin Lesions: no lesions Rashes: no rashes MDM MDM MDM Narrative Medical decision making narrative: Patient evaluated for worsening left shoulder pain. Differential includes biceptendinitis, rotator cuff injury. No trauma or deformity on exam low suspicion for AC joint separation, clavicle fracture or shoulder fracture. Do not think he requires an x-ray at this time. Physical exam most consistent with a bicep tendinitis. Physical exam not consistent with a biceps tendon rupture. Patientbe given outpatient with pain follow-up. We started on a course of prednisone. Counseled on RICE therapy. Discharged home in stable condition. Given return precautions. Patient has good distal pulses equal bowling ball molder strength and neuro vascularly intact. Discharge Plan Triage Chief Complaint: Upper Extremity Injury ED Provider: Pili Pickering Dx/Rx/DC Orders Clinical Impression: Biceps tendinitis of left shoulder Instructions: ED Tendonitis Prescriptions: New prednisone 20 mg tablet 40 mg PO DAILY Qty: 8 0RF No Action albuterol sulfate 1 INHALER inhaler 1 - 2 puff inhalation Q4H PRN PRN (Reason: Wheezing) Qty: 1 0RF dicyclomine 10 mg capsule 20 mg PO TIDAC Qty: 20 0RF Primary Care Provider: Michelle Bashir NP Referrals: Mehrdad Frausto MD [Med Staff - Active Staff, Orthopedics] Michlele Bashir NP, LEAD ATG DEVELOPER-C [Primary Care Provider, Family Practice] Activity Restrictions/Additional Instructions: You been started on steroids. I suspect you have inflammation of your bicep which is causing your pain. You need to rest this. Do not do any sit ups or anything that aggravates it for the next week or so. Continue to ice and take NSAIDs. Please follow with your family doctor or orthopedics especially if their symptoms are worsening or not improving. Print Language: Ukrainian Disposition Disposition: Home, Self Care What to do if you have Problems For any increased pain, shortness of breath, bleeding, nausea or vomiting, chestpain, or any unexpected problems, contact your Primary Care Provider. Call [facility] ([phone]) or report to the closest Emergency Room. Call 911 if necessary. 05/07/25 1520 <Electronically signed by Pili Pickering DO> Cosigner Signature (if applicable): CC: DIPESH Bashir ~ Signed [facility] Work Phone: 1(948) 786-922509-05-2025 NoteHNO ID: [id number] Author: MAKENZIE CORCORAN LPN Service: ? Author Type: Licensed Nurse Type: Progress Notes Filed: 04/24/2025 13:13 Note Text: ED Follow-Up Note Provider Action / FYI: Call completed by: EDIE Patient seen in ED: Out of Network ED Contact made with Patient: No, left message. Makenzie Corcoran LPN April 24, 2025 1:13 [facility]09-05-2025 History of Present illness Narrative* Makenzie Corcoran LPN - 04/24/2025 1:12 PM EDT ED Follow-Up Note Provider Action / FYI: Call completed by: EDIE Patient seen in ED: Out of Network ED Contact made with Patient: No, left message. Makenzie Corcoran LPN April 24, 2025 1:13 PM documented [facility] NotePatient Outreach (AGFAMPLE) BOWEN JONES ([id number]) 89 F Date Time Provider Department 04/24/25 MICHELLE BASHIR During your visit today, we recorded the following information about you: Makenzie Corcoran LPN 04/24/2025 1:13 PM Signed ED Follow-Up Note Provider Action / FYI: Call completed by: EDIE Patient seen in ED: Out of Network ED Contact made with Patient: No, left message. Makenzie Corcoran LPN April 24, 2025 1:13 PM Allergies As of Date: 04/24/2025 Noted Allergy Reaction SEASONAL ALLERGIES 09/01/2010 5 - Intolerance Comments: Trees, ragweed Date Reviewed: 03/20/2025 Reviewed by: Michelle Bashir APRN.CUSTODIAL SERVICES MANAGER - Fully Assessed Reason for Visit: ED Follow-up [821] Cmt: [facility] 04/18/2025 and [facility] 04/22/2025 Prescriptions as of 04/24/2025 - omeprazole (PRILOSEC) 20 mg capsule Take 1 capsule by mouth every morning. - ondansetron (ZOFRAN) 4 mg tablet Take 1 tablet by mouth every 8 hours as needed. - psyllium husk (METAMUCIL) 0.4 gram cap Take 1 capsule by mouth once daily as needed. - levonorgestrel (LILETTA INTRAUTERINE) 52 mg by INTRAUTERINE route one time only. - vits62/FA/om3/dha/epa ( GUMMY ORAL) Take by mouth once daily. Has iron but unsure if folic acid - albuterol HFA (PROVENTIL HFA, VENTOLIN HFA) 90 mcg/actuation inhaler Inhale 2 Puffs as instructed every 4 hours as needed. Problem List As Of Date 04/24/2025 Noted Resolved Chronic nasal congestion [R09.81] 03/08/2012 03/10/2019 Quit smoking [Z87.891] 08/29/2018 08/26/2020 History of anxiety [Z86.59] 08/29/2018 Patient request for diagnostic testing [Z01.89] 08/29/2018 03/10/2019 Encounter for test, result positive [*08/29/2018 08/26/2020 Rh negative, antepartum [O26.899, Z67.91] 08/30/2018 04/09/2024 Benign gestational thrombocytopenia, antepartum*12/13/2018 08/26/2020 Marijuana use [F12.90] 08/26/2020 Low-lying placenta [O44.40] 11/18/2020 02/02/2021 Marginal insertion of umbilical cord affecting *11/18/2020 04/09/2024 Supervision of other high risk pregnancies, thi*01/31/2021 04/09/2024 Anxiety [F41.9] 10/06/2022 Closed head injury [S09.90XA] 10/06/2022 Contusion of multiple sites [T07.XXXA] 10/06/2022 History of umbilical hernia repair [Z98.890, Z8*10/06/2022 Muscle strain of left shoulder region [S46.912A]10/06/2022 Acute pain of left shoulder [M25.512] 10/17/2022 Upper back pain [M54.9] 10/17/2022 Encounter Status:Closed by MAKENZIE CORCORAN on 04/24/25[facility] 04-18-2025 Physician Emergency department Note* Carlos Jason DO - 04/18/2025 5:28 PM EDT Images from the original note were not included. Emergency Department Provider Note MEDICAL DECISION MAKING: Medical Decision Making 04/18/25 Chief Complaint Patient presents with Leg Injury Pt states she was running and her foot got caught in a divet and she fell. P ain to rught mid calf,ankle and foot. 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 Additional history was obtained from patient. HPI: Bowen Jones is a 24 y.o. presents with foot raise and fell. Tripped. Complains of right foot and right calf pain. Able to ambulate however pain is worse with ambulation weightbearing. Better with rest. Aching nature, localized and constant. No radiation. No numbness or tingling currently. Past medical records, Past medical history and surgical history reviewed and as documented. Historyreviewed and as noted. past medical records reviewed. Active Ambulatory Problems Diagnosis Date Noted No Active Ambulatory Problems Resolved Ambulatory Problems Diagnosis Date Noted No Resolved Ambulatory Problems No Additional Past Medical History Surgical History[1] Family History[2] Social History[3] RX Allergies[4] Unless otherwise stated in this report the patient's positive and negative responses for review of systems for constitutional, eyes, ENT, cardiovascular, respiratory, gastrointestinal, neurological, genitourinary, musculoskeletal, and integument systems and related systems to the presenting problemare either as stated in the HPI or were not pertinent or were negative for the symptoms and/or complaints related to the presenting medical problem. PHYSICAL EXAM Triage/nursing notes and vital signs reviewed as available and as noted Vitals: 04/18/25 1733 BP: 101/88 Pulse: 94 Resp: 16 Temp: 37.2 C (99 F) TempSrc: Temporal SpO2: 98% Weight: 54.4 kg (120 lb) Height: 1.626 m (5' 4) Physical Exam Vitals and nursing note reviewed. Constitutional: General: She is not in acute distress. Appearance: Normal appearance. She is not ill-appearing. HENT: Head: Atraumatic. Cardiovascular: Rate and Rhythm: Regular rhythm. Pulses: Normal pulses. Pulmonary: Effort: Pulmonary effort is normal. Musculoskeletal: Cervical back: Neck supple. Right knee: Normal. Left knee: Normal. Right lower leg: Tenderness (Soft tissue, calf) present. No swelling or deformity. No edema. Left lower leg: Normal. Right ankle: Normal. Right Achilles Tendon: Normal. Left ankle: Normal. Left Achilles Tendon: Normal. Right foot: Normal range of motion and normal capillary refill. Swelling (Dorsal foot) and tenderness (Dorsal midfoot) present. No deformity, foot drop, prominent metatarsal heads, laceration, bony tenderness or crepitus. Normal pulse. Left foot: Normal. Skin: General: Skin is warm and dry. Capillary Refill: Capillary refill takes less than 2 seconds. Findings: Bruising (Dorsal right foot) present. Neurological: Mental Status: She is alert and oriented to person, place, and time. Sensory: No sensory deficit. Motor: No weakness. ED COURSE Work-up performed to evaluate for differential diagnosis as clinically indicated Orders Placed This Encounter Procedures Crutches XR foot right 3+ views XR tibia fibula right 2 views Elevate extremity (specify) Apply ice to affected area Apply rosy wrap Labs and imaging reviewed by me and note Labs Reviewed - No data to display XR foot right 3+ views Final Result No acute osseous findings involving the right foot. Signed by Acosta Castillo MD XR tibia fibula right 2 views Final Result No acute osseous abnormality. Signed by Ajith Clement MD Pt course which Intervention and treatment included : Procedure Procedures Medications - No data to display ED Course as of 04/18/251908 Sat Apr 18, 2025 173 Patient after fall. Did not hit her head or lose consciousness. Complains of right foot and right calf pain. Neurovascular intact. Compartments soft. No significant swelling. X-rays obtained as appropriate. Elevation. Patient to take Motrin. Her tetanus is up-to-date. [ML] ED Course User Index [ML] Carlos Jason DO Diagnoses as of 04/18/251908 Muscle strain of lower leg, right, initial encounter DISPOSITION: Patient is stable for discharge. Based upon my history, physical exam, evaluation and judgement regarding the aforementioned differentials, at the time of this assessment, I do not see evidence to support the presence of any life, neurologic, or limb threatening pathology in my considered differentials. Alternate non life threatening pathology has been considered, and has been ruled out based upon the findings of my evaluation. While there may be remaining pathology considered within the differential, this is not life threatening, not limb threatening, and does not warrant further emergent evaluation or treatment at this time. Shared decision making made with the patient as applicable. It is my judgement that further treatment and evaluation can safely proceed in the outpatient setting. Shared decision making was utilized to arrive at all clinical decisions. At this time I do not see evidence of an emergency medical condition based upon my medical screening examination. All imaging and laboratory results were discussed with the patient in detail including acute as well as incidental findings. I discussed the differential, results and discharge plan with the patient and/or family/friend/caregiver if present. Education and reassurance provided regards to presumed diagnosis. I emphasized the importance of follow-up with the physician I referred them to in the timeframe recommended. I explained reasons for the patient to return to the Emergency Department. Additional verbal discharge instructions were also given and discussed with the patient to supplement thosegenerated by the EMR. We also discussed medications that were prescribed (if any) including common side effects and interactions as well as proper dosing and administration. The patient was advised to abstain from driving, operating heavy machinery or making significant decisions while taking medications such as opiates and muscle relaxers that may impair this. All questions were addressed. They understand return precautions and discharge instructions. The patient and/or family/friend/caregiverexpressed understanding 1. Muscle strain of lower leg, right, initial encounter methocarbamol (Robaxin) 500 mg tablet methylPREDNISolone (Medrol Dospak) 4 mg tablets 04/18/25 at 5:28 PM - Carlos Jason DO Internal & Emergency Medicine [1] No past surgical history on file. [2] No family history on file. [3] [4] No Known Allergies Carlos Jason DO Resident 04/18/25 [id number] Work Phone: 1(496) 356-340008-30-2025 Emergency department Note* Carlos Jason DO - 04/18/2025 5:28 PM EDT Images from the original note were not included. Emergency Department Provider Note MEDICAL DECISION MAKING: Medical Decision Making 04/18/25 Chief Complaint Patient presents with Leg Injury Pt states she was running and her foot got caught in a divet and she fell. P ain to rught mid calf,ankle and foot. 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 Additional history was obtained from patient. HPI: Bowen Jones is a 24 y.o. presents with foot raise and fell. Tripped. Complains of right foot and right calf pain. Able to ambulate however pain is worse with ambulation weightbearing. Better with rest. Aching nature, localized and constant. No radiation. No numbness or tingling currently. Past medical records, Past medical history and surgical history reviewed and as documented. Historyreviewed and as noted. past medical records reviewed. Active Ambulatory Problems Diagnosis Date Noted No Active Ambulatory Problems Resolved Ambulatory Problems Diagnosis Date Noted No Resolved Ambulatory Problems No Additional Past Medical History Surgical History[1] Family History[2] Social History[3] RX Allergies[4] Unless otherwise stated in this report the patient's positive and negative responses for review of systems for constitutional, eyes, ENT, cardiovascular, respiratory, gastrointestinal, neurological, genitourinary, musculoskeletal, and integument systems and related systems to the presenting problemare either as stated in the HPI or were not pertinent or were negative for the symptoms and/or complaints related to the presenting medical problem. PHYSICAL EXAM Triage/nursing notes and vital signs reviewed as available and as noted Vitals: 04/18/25 1733 BP: 101/88 Pulse: 94 Resp: 16 Temp: 37.2 C (99 F) TempSrc: Temporal SpO2: 98% Weight: 54.4 kg (120 lb) Height: 1.626 m (5' 4) Physical Exam Vitals and nursing note reviewed. Constitutional: General: She is not in acute distress. Appearance: Normal appearance. She is not ill-appearing. HENT: Head: Atraumatic. Cardiovascular: Rate and Rhythm: Regular rhythm. Pulses: Normal pulses. Pulmonary: Effort: Pulmonary effort is normal. Musculoskeletal: Cervical back: Neck supple. Right knee: Normal. Left knee: Normal. Right lower leg: Tenderness (Soft tissue, calf) present. No swelling or deformity. No edema. Left lower leg: Normal. Right ankle: Normal. Right Achilles Tendon: Normal. Left ankle: Normal. Left Achilles Tendon: Normal. Right foot: Normal range of motion and normal capillary refill. Swelling (Dorsal foot) and tenderness (Dorsal midfoot) present. No deformity, foot drop, prominent metatarsal heads, laceration, bony tenderness or crepitus. Normal pulse. Left foot: Normal. Skin: General: Skin is warm and dry. Capillary Refill: Capillary refill takes less than 2 seconds. Findings: Bruising (Dorsal right foot) present. Neurological: Mental Status: She is alert and oriented to person, place, and time. Sensory: No sensory deficit. Motor: No weakness. ED COURSE Work-up performed to evaluate for differential diagnosis as clinically indicated Orders Placed This Encounter Procedures Crutches XR foot right 3+ views XR tibia fibula right 2 views Elevate extremity (specify) Apply ice to affected area Apply rosy wrap Labs and imaging reviewed by me and note Labs Reviewed - No data to display XR foot right 3+ views Final Result No acute osseous findings involving the right foot. Signed by Acosta Castillo MD XR tibia fibula right 2 views Final Result No acute osseous abnormality. Signed by Ajith Clement MD Pt course which Intervention and treatment included : Procedure Procedures Medications - No data to display ED Course as of 04/18/251908 Sat Apr 18, 2025 173 Patient after fall. Did not hit her head or lose consciousness. Complains of right foot and right calf pain. Neurovascular intact. Compartments soft. No significant swelling. X-rays obtained as appropriate. Elevation. Patient to take Motrin. Her tetanus is up-to-date. [ML] ED Course User Index [ML] Carlos Jason DO Diagnoses as of 04/18/251908 Muscle strain of lower leg, right, initial encounter DISPOSITION: Patient is stable for discharge. Based upon my history, physical exam, evaluation and judgement regarding the aforementioned differentials, at the time of this assessment, I do not see evidence to support the presence of any life, neurologic, or limb threatening pathology in my considered differentials. Alternate non life threatening pathology has been considered, and has been ruled out based upon the findings of my evaluation. While there may be remaining pathology considered within the differential, this is not life threatening, not limb threatening, and does not warrant further emergent evaluation or treatment at this time. Shared decision making made with the patient as applicable. It is my judgement that further treatment and evaluation can safely proceed in the outpatient setting. Shared decision making was utilized to arrive at all clinical decisions. At this time I do not see evidence of an emergency medical condition based upon my medical screening examination. All imaging and laboratory results were discussed with the patient in detail including acute as well as incidental findings. I discussed the differential, results and discharge plan with the patient and/or family/friend/caregiver if present. Education and reassurance provided regards to presumed diagnosis. I emphasized the importance of follow-up with the physician I referred them to in the timeframe recommended. I explained reasons for the patient to return to the Emergency Department. Additional verbal discharge instructions were also given and discussed with the patient to supplement thosegenerated by the EMR. We also discussed medications that were prescribed (if any) including common side effects and interactions as well as proper dosing and administration. The patient was advised to abstain from driving, operating heavy machinery or making significant decisions while taking medications such as opiates and muscle relaxers that may impair this. All questions were addressed. They understand return precautions and discharge instructions. The patient and/or family/friend/caregiverexpressed understanding 1. Muscle strain of lower leg, right, initial encounter methocarbamol (Robaxin) 500 mg tablet methylPREDNISolone (Medrol Dospak) 4 mg tablets 04/18/25 at 5:28 PM - Carlos Jason DO Internal & Emergency Medicine [1] No past surgical history on file. [2] No family history on file. [3] [4] No Known Allergies Carlos Jason DO Resident 04/18/25 675 [facility] Work Phone: 1(124) 256-164008-21-2025 NoteOPG [address] [facility] [address] [facility] [id number] Chief Complaint Patient presents with Right Wrist - Follow-up Right Elbow - Follow-up Bowen Jones returns to the office today for follow up on her right wrist and elbow. She has been wearing the splint on her wrist. Both the wrist and elbow are feeling better. She still has some soreness in the forearm, closer to the elbow. She denies any new injury. No numbness or tingling down the arm into the hand or the fingers. The patient's past medical history, surgical history, social history, family history, medications and allergies were reviewed with the patient today and are available in the chart for further review. Allergies[1] Current Medications[2] Past Medical History: Diagnosis Date Depression PTSD (post-traumatic stress disorder) Past Surgical History: Procedure Laterality Date HERNIA REPAIR N/A TONSILLECTOMY N/A Social History[3] ROS: Review of Systems Musculoskeletal: Positive for myalgias. Negative for arthralgias and joint swelling. ORTHO: Right Hand Exam Tenderness The patient is experiencing tenderness in the radial area. Range of Motion The patient has normal right wrist ROM. Muscle Strength The patient has normal right wrist strength. Other Erythema: absent Scars: absent Sensation: normal Pulse: present Right Elbow Exam Tenderness The patient is experiencing tenderness in the radial head. Range of Motion The patient has normal right elbow ROM. Muscle Strength The patient has normal right elbow strength. Tests Varus: negative Valgus: negative Other Erythema: absent Scars: absent Sensation: normal Pulse: present Imaging: R Elbow: No evidence of acute fracture or dislocation. R Wrist: No acute fracture or dislocation. Assessment/Plan: After examination and reviewing of the patient x-ray images, she is to continue with activity as tolerated. She is to continue wearing the wrist splint only with activity and heavy lifting. She is to completely wean herself out within the next 2 to 3 weeks. . If she has returned or worsening of symptoms, I will see her back in the office otherwise I will see her back as needed. [1] No Known Allergies [2] Current Outpatient Medications: albuterol 90 mcg/actuation inhaler, Inhale 2 (two) puffs every 4 (four) hours as needed ., Disp: , Rfl: ibuprofen (ADVIL,MOTRIN) 400 MG tablet, Take 1 (one) tablet (400 mg total) by mouth every 6 (six) hours as needed for pain ., Disp: 30 tablet, Rfl: 0 omeprazole (PRILOSEC) 20 MG capsule, Take 1 (one) capsule (20 mg total) by mouth every morning ., Disp: , Rfl: [3] Social History Socioeconomic History Marital status: Single Tobacco Use Smokeless tobacco: Never Vaping Use Vaping status: Every Day Substance and Sexual Activity Alcohol use: Not Currently Drug use: Not Currently AUTHENTICATED BY MARZENA LUU, ON 04/16/2025 17:24:28[facility]08-21-2025 History of Present illness Narrative* Marzena Luu, CUSTODIAL SERVICES MANAGER - 04/09/2025 2:09 PM EDT [facility] [address] [facility] [address] [facility] [id number] Chief Complaint Patient presents with Right Wrist - Follow-up Right Elbow - Follow-up Bowen Jones returns to the office today for follow up on her right wrist and elbow. She has beenwearing the splint on her wrist. Both the wrist and elbow are feeling better. She still has some soreness in the forearm, closer to the elbow. She denies any new injury. No numbness or tingling down the arm into the hand or the fingers. The patient's past medical history, surgical history, social history, family history, medications and allergies were reviewed with the patient today and are available in the chart for further review. Allergies[1] Current Medications[2] Past Medical History: Diagnosis Date Depression PTSD (post-traumatic stress disorder) Past Surgical History: Procedure Laterality Date HERNIA REPAIR N/A TONSILLECTOMY N/A Social History[3] ROS: Review of Systems Musculoskeletal: Positive for myalgias. Negative for arthralgias and joint swelling. ORTHO: Right Hand Exam Tenderness The patient is experiencing tenderness in the radial area. Range of Motion The patient has normal right wrist ROM. Muscle Strength The patient has normal right wrist strength. Other Erythema: absent Scars: absent Sensation: normal Pulse: present Right Elbow Exam Tenderness The patient is experiencing tenderness in the radial head. Range of Motion The patient has normal right elbow ROM. Muscle Strength The patient has normal right elbow strength. Tests Varus: negative Valgus: negative Other Erythema: absent Scars: absent Sensation: normal Pulse: present Imaging: R Elbow: No evidence of acute fracture or dislocation. R Wrist: No acute fracture or dislocation. Assessment/Plan: After examination and reviewing of the patient x-ray images, she is to continue with activity as tolerated. She is to continue wearing the wrist splint only with activity and heavy lifting. She is to completely wean herself out within the next 2 to 3 weeks. . If she has returned orworsening of symptoms, I will see her back in the office otherwise I will see her back as needed. [1] No Known Allergies [2] Current Outpatient Medications: albuterol 90 mcg/actuation inhaler, Inhale 2 (two) puffs every 4 (four) hours as needed ., Disp: , Rfl: ibuprofen (ADVIL,MOTRIN) 400 MG tablet, Take 1 (one) tablet (400 mg total) by mouth every 6 (six) hours as needed for pain ., Disp: 30 tablet, Rfl: 0 omeprazole (PRILOSEC) 20 MG capsule, Take 1 (one) capsule (20 mg total) by mouth every morning ., Disp: , Rfl: [3] Social History Socioeconomic History Marital status: Single Tobacco Use Smokeless tobacco: Never Vaping Use Vaping status: Every Day Substance and Sexual Activity Alcohol use: Not Currently Drug use: Not Currently documented in this [id number] [facility] [address] [facility] [id number] Bowen Jones 24-year-old, presents to the office today with complaints of right wrist pain. Over a week ago, she was running and fell with the right arm outstretched. She had pain in the wrist, was evaluated in the emergency room then referred to orthopedics. She is having pain up into the arm. The wrist isn't as painful as it was. 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 OTC pain medications as needed. The patient's past medical history, surgical history, social history, family history, medications and allergies were reviewed with the patient today and are available in the chart for further review. Allergies[1] Current Medications[2] No past medical history on file. No past surgical history on file. Social History[3] ROS: Review of Systems Constitutional: Negative for activity change and fatigue. HENT: Negative for congestion, hearing loss and trouble swallowing. Eyes: Negative for visual disturbance. Respiratory: Negative for chest tightness and shortness of breath. Cardiovascular: Negative for chest pain and palpitations. Gastrointestinal: Negative for abdominal pain, diarrhea, nausea and vomiting. Endocrine: Negative for polydipsia, polyphagia and polyuria. Genitourinary: Negative for decreased urine volume, difficulty urinating and hematuria. Musculoskeletal: Positive for arthralgias, joint swelling and myalgias. Skin: Negative for color change, rash and wound. Allergic/Immunologic: Negative for immunocompromised state. Neurological: Negative for dizziness, weakness, light-headedness and numbness. Hematological: Does not bruise/bleed easily. Psychiatric/Behavioral: Negative for confusion and sleep disturbance. The patient is not nervous/anxious. PE: Physical Exam Constitutional: Appearance: She is well-developed. HENT: Head: Normocephalic. Eyes: Pupils: Pupils are equal, round, and reactive to light. Cardiovascular: Rate and Rhythm: Normal rate and regular rhythm. Pulmonary: Effort: Pulmonary effort is normal. Breath sounds: Normal breath sounds. Abdominal: General: Bowel sounds are normal. Palpations: Abdomen is soft. Musculoskeletal: General: Swelling and tenderness present. Normal range of motion. Cervical back: Normal range of motion and neck supple. Skin: General: Skin is warm and dry. Neurological: Mental Status: She is alert and oriented to person, place, and time. ORTHO: Right Elbow Exam Tenderness The patient is experiencing tenderness in the radial head. Range of Motion Right elbow extension: -5 degrees extension. Flexion: 120 Pronation: 10 Supination: 110 Tests Varus: negative Valgus: negative Tinel's sign (cubital tunnel): negative Other Erythema: absent Scars: absent Sensation: normal Pulse: present Imaging: R Elbow: Suspicious lucency on radial head, suspicious for fracture. R Wrist: No acute fracture or dislocation. Assessment/Plan: After examination and reviewing of the patient x-ray images, we discussed treatment for the wrist and elbow. I would like for her to rest the elbow and wrist. Continue with otc pain medications as needed and I will see her back in 2 weeks. [1] No Known Allergies [2] Current Outpatient Medications: ibuprofen (ADVIL,MOTRIN) 400 MG tablet, Take 1 (one) tablet (400 mg total) by mouth every 6 (six) hours as needed for pain ., Disp: 30 tablet, Rfl: 0 [3] Social History Socioeconomic History Marital status: Single AUTHENTICATED BY MAREZNA LUU, ON 04/06/2025 15:10:03[facility] [id number] History of Present illness Narrative* Marzena Luu, CUSTODIAL SERVICES MANAGER - 03/25/2025 1:08 PM EDT [facility] [address] [facility] [address] [facility] [id number] Bowen Jones 24-year-old, presents to the office today with complaints of right wrist pain. Over a week ago, she was running and fell with the right arm outstretched. She had pain in the wrist, wasevaluated in the emergency room then referred to orthopedics. She is having pain up into the arm. The wrist isn't as painful as it was. 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 OTC pain medications as needed. The patient's past medical history, surgical history, social history, family history, medications and allergies were reviewed with the patient today and are available in the chart for further review. Allergies[1] Current Medications[2] No past medical history on file. No past surgical history on file. Social History[3] ROS: Review of Systems Constitutional: Negative for activity change and fatigue. HENT: Negative for congestion, hearing loss and trouble swallowing. Eyes: Negative for visual disturbance. Respiratory: Negative for chest tightness and shortness of breath. Cardiovascular: Negative for chest pain and palpitations. Gastrointestinal: Negative for abdominal pain, diarrhea, nausea and vomiting. Endocrine: Negative for polydipsia, polyphagia and polyuria. Genitourinary: Negative for decreased urine volume, difficulty urinating and hematuria. Musculoskeletal: Positive for arthralgias, joint swelling and myalgias. Skin: Negative for color change, rash and wound. Allergic/Immunologic: Negative for immunocompromised state. Neurological: Negative for dizziness, weakness, light-headedness and numbness. Hematological: Does not bruise/bleed easily. Psychiatric/Behavioral: Negative for confusion and sleep disturbance. The patient is not nervous/anxious. PE: Physical Exam Constitutional: Appearance: She is well-developed. HENT: Head: Normocephalic. Eyes: Pupils: Pupils are equal, round, and reactive to light. Cardiovascular: Rate and Rhythm: Normal rate and regular rhythm. Pulmonary: Effort: Pulmonary effort is normal. Breath sounds: Normal breath sounds. Abdominal: General: Bowel sounds are normal. Palpations: Abdomen is soft. Musculoskeletal: General: Swelling and tenderness present. Normal range of motion. Cervical back: Normal range of motion and neck supple. Skin: General: Skin is warm and dry. Neurological: Mental Status: She is alert and oriented to person, place, and time. ORTHO: Right Elbow Exam Tenderness The patient is experiencing tenderness in the radial head. Range of Motion Right elbow extension: -5 degrees extension. Flexion: 120 Pronation: 10 Supination: 110 Tests Varus: negative Valgus: negative Tinel's sign (cubital tunnel): negative Other Erythema: absent Scars: absent Sensation: normal Pulse: present Imaging: R Elbow: Suspicious lucency on radial head, suspicious for fracture. R Wrist: No acute fracture or dislocation. Assessment/Plan: After examination and reviewing of the patient x-ray images, we discussed treatment for the wrist and elbow. I would like for her to rest the elbow and wrist. Continue with otc pain medications as needed and I will see her back in 2 weeks. [1] No Known Allergies [2] Current Outpatient Medications: ibuprofen (ADVIL,MOTRIN) 400 MG tablet, Take 1 (one) tablet (400 mg total) by mouth every 6 (six) hours as needed for pain ., Disp: 30 tablet, Rfl: 0 [3] Social History Socioeconomic History Marital status: Single documented in this [id number] Telephone encounter Note* Telephone Encounter - [place]ines - 03/23/2025 2:11 PM EDT This patient was referred to our office to see Psychiatry I attempted to call the patient and was unable to reach the patient. Voicemail is not set up. [place] [facility]08-04-2025 Miscellaneous Notes* Telephone Encounter - [place] - 03/23/2025 2:11 PM EDT This patient was referred to our office to see Psychiatry I attempted to call the patient and was unable to reach the patient. Voicemail is not set up. [place] documented in this encounterUniversity [facility] Instructions* Patient Instructions* Michelle Bashir APRN.CUSTODIAL SERVICES MANAGER - 03/20/2025 9:[address] [facility] [phone] documented in this encounterUniversity Hospitals [facility]08-01-2025 NoteHNO ID: [id number] Author: MICHELLE BASHIR APRN.CNP Service: ? Author Type: Nurse Practitioner Type: Progress Notes Filed: 03/22/2025 18:40 Note Text: CHIEF COMPLAINT: Bowen Jones is a 24-year-old female with a history of anxiety, presenting for evaluation of chronic nausea and vomiting, abdominal pain, and irregular menstruation. I reviewed past medical, surgical, social, and family histories today and updated chart. Allergies, chronic medications, and supplements were also reviewed. Recording using Percentil software for draft documentation of the visit was discussed with the patient/authorized safety representative; all questions welcomed and answered. Patient/authorized safety representative agreed to proceed Nausea and Vomiting: - Chronic nausea and emesis, primarily in the morning, described as acidic. - Symptoms triggered by certain smells; aversion to eating in the morning. - Symptoms have been present for an extended period, not associated with IUD placement. - Bowen has tried Zofran and possibly Phenergan or Compazine in the past. - Denies abdominal pain postprandially; occasionally experiences pressure. - Denies family history of celiac disease or other GI conditions. - Reports unintentional weight loss due to difficulty eating in the morning. Abdominal Pain: - Generalized lower abdominal pain. - Recent CT abdomen and chest in January showed moderate constipation. - Prescribed Metamucil for constipation, which has improved; having daily bowel movements. - No current use of pain medications. - Two umbilical hernia repairs: one in 2021 and a triple hernia repair in 2023. - Follow-up with surgeon confirmed no significant issues; potential small hernia would require a different surgical approach. Irregular Menstruation: - IUD in place for about a year; initially no issues. - Amenorrhea for 2.5 months, followed by a very heavy period with cramping. - Negative urine and blood tests during amenorrhea. - Scheduled for IUD removal due to bleeding and pain issues. Anxiety: - Seeing a licensed counselor for anxiety and trauma therapy. - Counselor suggested genetic testing for MTHFR gene and potential vitamin B supplementation. - No current medication for anxiety; counselor is pro-medication but has not prescribed any. Presyncope: - Episodes of feeling like she might pass out, accompanied by dizziness, sweating, tachycardia, and tinnitus. - No recent syncope; manages episodes by lying down. - Uncertain if episodes are related to blood pressure fluctuations. PAST MEDICAL HISTORY Diagnosis Date Allergic rhinitis anxiety Closed head injury 10/06/2022 Cyst of left ovary 03/15/2024 Low-lying placenta (HCC) 11/18/2020 01/31/21- No longer low lying via ultrasound. Anahy Weeks APRN.JESSI 11/18/20:recheck placental location in 8-12 WEEKS. Kerri Godwin MD Menarche 09/2011 Miscarriage at 8 to 28 weeks gestation (HCC) 03/15/2024 NEGATIVE HISTORY OF 04/29/2012 Normal Color Vision NEGATIVE MEDICAL HISTORY PAST SURGICAL HISTORY Procedure Laterality Date DANDC, DIAG AND/OR THERAPEUTIC 03/20/2024 Suction DANDC NEXPLANON INSERTION 05/31/2015 REPAIR EPIGASTRIC HERNIA,REDUC TONSILLECTOMY PRIMARY/SECONDARY Social History Tobacco Use Smoking status: Former Current packs/day: 0.00 Types: Cigarettes Quit date: 04/26/2020 Years since quittin.9 Smokeless tobacco: Never Tobacco comments: vape Vaping Use Vaping status: Former Substances: Nicotine, Flavoring Substance Use Topics Alcohol use: No Drug use: Not Currently Types: Marijuana ALLERGIES Allergen Reactions Seasonal Allergies Intolerance Trees, ragweed Family History Problem Relation Age of Onset Heart Mother other (bipolar) Father No Known Problems Sister No Known Problems Sister No Known Problems Brother No Known Problems Brother Heart Maternal Grandmother No Known Problems Maternal Grandfather other (bipolar) Paternal Grandmother other (bipolar) Paternal Grandfather other (Negative) Other Heart Brother 14 pericarditis Current Outpatient Medications Medication Sig Dispense Refill levonorgestrel (LILETTA INTRAUTERINE) 52 mg by INTRAUTERINE route one time only. albuterol HFA (PROVENTIL HFA, VENTOLIN HFA) 90 mcg/actuation inhaler Inhale 2 Puffs as instructed every 4 hours as needed. 18 g 0 omeprazole (PRILOSEC) 20 mg capsule Take 1 capsule by mouth every morning. 30 capsule 2 ondansetron (ZOFRAN) 4 mg tablet Take 1 tablet by mouth every 8 hours as needed. 12 tablet 0 psyllium husk (METAMUCIL) 0.4 gram cap Take 1 capsule by mouth once daily as needed. 90 capsule 0 vits62/FA/om3/dha/epa ( GUMMY ORAL) Take by mouth once daily. Has iron but unsure if folic acid (Patient not taking: Reported on 04/28/2024) No current facility-administered medications for this visit. Review of Systems Constitutional: (+) unintent (more content not included)...[facility]08-01-2025 History of Present illness Narrative* Michelle Bashir APRN.CUSTODIAL SERVICES MANAGER - 03/20/2025 9:13 AM EDT CHIEF COMPLAINT: Bowen Jones is a 24-year-old female with a history of anxiety, presenting for evaluation of chronic nausea and vomiting, abdominal pain, and irregular menstruation. I reviewed past medical, surgical, social, and family histories today and updated chart. Allergies,chronic medications, and supplements were also reviewed. Recording using Percentil software for draft documentation of the visit was discussed with the patient/authorized safety representative; all questions welcomed and answered. Patient/authorized safety representative agreed to proceed Nausea and Vomiting: - Chronic nausea and emesis, primarily in the morning, described as acidic. - Symptoms triggered by certain smells; aversion to eating in the morning. - Symptoms have been present for an extended period, not associated with IUD placement. - Bowen has tried Zofran and possibly Phenergan or Compazine in the past. - Denies abdominal pain postprandially; occasionally experiences pressure. - Denies family history of celiac disease or other GI conditions. - Reports unintentional weight loss due to difficulty eating in the morning. Abdominal Pain: - Generalized lower abdominal pain. - Recent CT abdomen and chest in January showed moderate constipation. - Prescribed Metamucil for constipation, which has improved; having daily bowel movements. - No current use of pain medications. - Two umbilical hernia repairs: one in 2021 and a triple hernia repair in 2023. - Follow-up with surgeon confirmed no significant issues; potential small hernia would require a different surgical approach. Irregular Menstruation: - IUD in place for about a year; initially no issues. - Amenorrhea for 2.5 months, followed by a very heavy period with cramping. - Negative urine and blood tests during amenorrhea. - Scheduled for IUD removal due to bleeding and pain issues. Anxiety: - Seeing a licensed counselor for anxiety and trauma therapy. - Counselor suggested genetic testing for MTHFR gene and potential vitamin B supplementation. - No current medication for anxiety; counselor is pro-medication but has not prescribed any. Presyncope: - Episodes of feeling like she might pass out, accompanied by dizziness, sweating, tachycardia, andtinnitus. - No recent syncope; manages episodes by lying down. - Uncertain if episodes are related to blood pressure fluctuations. PAST MEDICAL HISTORY Diagnosis Date Allergic rhinitis anxiety Closed head injury 10/06/2022 Cyst of left ovary 03/15/2024 Low-lying placenta (HCC) 11/18/2020 01/31/21- No longer low lying via ultrasound. Anahy Weeks APRN.MIRIAM 11/18/20:recheck placental location in 8-12 WEEKS. Kerri Godwin MD Menarche 09/2011 Miscarriage at 8 to 28 weeks gestation (HCC) 03/15/2024 NEGATIVE HISTORY OF 04/29/2012 Normal Color Vision NEGATIVE MEDICAL HISTORY PAST SURGICAL HISTORY Procedure Laterality Date D&C, DIAG AND/OR THERAPEUTIC 03/20/2024 Suction D&C NEXPLANON INSERTION 05/31/2015 REPAIR EPIGASTRIC HERNIA,REDUC TONSILLECTOMY PRIMARY/SECONDARY <AGE 12 Social History Tobacco Use Smoking status: Former Current packs/day: 0.00 Types: Cigarettes Quit date: 04/26/2020 Years since quittin.9 Smokeless tobacco: Never Tobacco comments: vape Vaping Use Vaping status: Former Substances: Nicotine, Flavoring Substance Use Topics Alcohol use: No Drug use: Not Currently Types: Marijuana ALLERGIES Allergen Reactions Seasonal Allergies Intolerance Trees, ragweed Family History Problem Relation Age of Onset Heart Mother other (bipolar) Father No Known Problems Sister No Known Problems Sister No Known Problems Brother No Known Problems Brother Heart Maternal Grandmother No Known Problems Maternal Grandfather other (bipolar) Paternal Grandmother other (bipolar) Paternal Grandfather other (Negative) Other Heart Brother 14 pericarditis Current Outpatient Medications Medication Sig Dispense Refill levonorgestrel (LILETTA INTRAUTERINE) 52 mg by INTRAUTERINE route one time only. albuterol HFA (PROVENTIL HFA, VENTOLIN HFA) 90 mcg/actuation inhaler Inhale 2 Puffs as instructed every 4 hours as needed. 18 g 0 omeprazole (PRILOSEC) 20 mg capsule Take 1 capsule by mouth every morning. 30 capsule 2 ondansetron (ZOFRAN) 4 mg tablet Take 1 tablet by mouth every 8 hours as needed. 12 tablet 0 psyllium husk (METAMUCIL) 0.4 gram cap Take 1 capsule by mouth once daily as needed. 90 capsule 0 vits62/FA/om3/dha/epa ( GUMMY ORAL) Take by mouth once daily. Has iron but unsure if folic acid (Patient not taking: Reported on 04/28/2024) No current facility-administered medications for this visit. Review of Systems Constitutional: (+) unintentional weight loss, (+) decreased appetite, (+) diaphoresis Ears/Nose/Mouth/Throat: (+) tinnitus Cardiovascular: (+) palpitations, (+) near-syncope Gastrointestinal: (+) nausea, (+) vomiting, (+) lower abdominal pain, (+) abdominal cramping Genitourinary: (+) heavy menstrual bleeding, (+) dysmenorrhea Neurological: (+) dizziness Psychiatric: (+) anxiety BP 122/76 Pulse 60 Temp (Src) 97.8 (Oral) Resp 18 Ht 5' 3.25 (1.61m) Wt 119 lb (54.0kg) SpO2 98% LMP 12/24/2023 BMI 20.90 kg/(m^2). Physical Exam GENERAL: NAD, alert and oriented. LUNGS: Clear to auscultation bilaterally, no wheezes/rhonchi/rales. HEART: Regular rate and rhythm, no murmurs. No ectopy. EXTREMITIES: Normal, no deformities, no skin discoloration, no edema. ABDOMEN: Soft, non-tender, no masses or hepatosplenomegaly noted. Bowel sounds normal. NEURO: Awake, alert and oriented x3 Labs: Blood Test: Negative CBC: No anemia or leukocytosis; platelets normal Imaging: (January) CT Abdomen and Chest: Moderate constipation ASSESSMENT/PLAN: 1. Generalized abdominal pain (R10.84) 2. Nausea and vomiting, unspecified vomiting type (R11.2) 3. Constipation, unspecified constipation type (K59.00) - Chronic morning nausea and vomiting with lower abdominal pain; no emesis or pain after eating; symptoms may be multifactorial, including possible gastritis, acid reflux, or anxiety-related exacerbation. - Recent history of moderate constipation per CT abdomen and chest in January; previously treated withMetamucil. - Start Prilosec 20 mg PO daily, to be taken 30 minutes before breakfast; if no improvement, may switch to bedtime dosing. - Prescribed ondansetron 4 mg PO PRN for breakthrough nausea. - Restart Metamucil capsules daily PRN for constipation; advised to maintain adequate hydration. - Educated on potential exacerbation of nausea and vomiting with marijuana use. - Advised to monitor for dietary triggers and maintain regular eating and hydration. - If symptoms persist or worsen, will refer to GI for further evaluation, including possible endoscopy. - Follow-up in 2 months (virtual acceptable) to reassess symptoms and medication efficacy. 4. Anxiety (F41.9) - Anxiety may be contributing to GI symptoms. - Refer to psychiatry for further evaluation and management, including discussion of potential pharmacogenomic testing. New medication(s) prescribed today: Yes: Zofran, Prilosec, and Metamucil. Discussed new medication dosage, usage, goals of therapy, and side effects. Patient has been apprised of any potential drug interactions to be aware of. Patient expresses understanding. Counseling completed in adopting health behaviors such as avoiding excessive alcohol use, avoid tobacco use, improve nutrition, and engage in physical activities. Copy of written care plan, clinical summary, treatment plan, new medications, goals, and self management requirements were given to patient. Michelle Bashir APRN.CNP documented in this encounterUniversity Hospitals [facility]07-15-2025 Evaluation note* Diagnosis Onset Date Resolution Status Admit Date Postoperative abdominal pain acute March 03, 2025 2:49pm [facility] Work Phone: 1(972) 225-638706-25-2025 NoteHNO ID: [id number] Author: JONATHAN STOVER MA Service: ? Author Type: Cork Molder Type: Progress Notes Filed: 02/11/2025 13:32 Note Text: ED Follow Up: Patient discharged from [facility] ED on 02/04/25. 1. How are you feeling since your ED visit? Left message inquiring how patient is doing since recent ER visit and recommended calling back if she needs anything. Have your symptoms improved or resolved? Left message 2. Were you prescribed any medications while in the ED or advised to stop any medication? Left message - If yes, were you able to fill your prescriptions? Left message -if stopped medication, what was the medication? Left message 3. Were you advised to schedule a follow up appointment with your provider? Left message - If no, Do you feel like you need an appointment scheduled? Left message - If yes, Do you need this scheduled now or has this already been scheduled? Left message 4. Were you able to contact the office or financial operations clerk provider prior to your ED visit? left message 5. Is there anything else I can do for you today? Left message [facility] History of Present illness Narrative* Jonathan Stover MA - 02/11/2025 1:29 PM EDT ED Follow Up: Patient discharged from [facility] ED on 02/04/25. 1. How are you feeling since your ED visit? Left message inquiring how patient is doing since recent ER visit and recommended calling back if she needs anything. Have your symptoms improved or resolved? Left message 2. Were you prescribed any medications while in the ED or advised to stop any medication? Left message - If yes, were you able to fill your prescriptions? Left message -if stopped medication, what was the medication? Left message 3. Were you advised to schedule a follow up appointment with your provider? Left message - If no, Do you feel like you need an appointment scheduled? Left message - If yes, Do you need this scheduled now or has this already been scheduled? Left message 4. Were you able to contact the office or financial operations clerk provider prior to your ED visit? left message 5. Is there anything else I can do for you today? Left message Jonathan Stover MA documented in this encounterUniversity Hospitals Geaug[facility]06-25-2025 NotePatient Outreach (AGFAMPLE) BOWEN JONES ([id number]) 89 F Date Time Provider Department 02/11/25 MICHELLE BASHIR AGFAGALE During your visit today, we recorded the following information about you: Jonathan Stover MA 02/11/2025 1:32 PM Signed ED Follow Up: Patient discharged from [facility] ED on 02/04/25. 1. How are you feeling since your ED visit? Left message inquiring how patient is doing since recent ER visit and recommended calling back if she needs anything. Have your symptoms improved or resolved? Left message 2. Were you prescribed any medications while in the ED or advised to stop any medication? Left message - If yes, were you able to fill your prescriptions? Left message -if stopped medication, what was the medication? Left message 3. Were you advised to schedule a follow up appointment with your provider? Left message - If no, Do you feel like you need an appointment scheduled? Left message - If yes, Do you need this scheduled now or has this already been scheduled? Left message 4. Were you able to contact the office or financial operations clerk provider prior to your ED visit? left message 5. Is there anything else I can do for you today? Left message Jonathan Stover MA Allergies As of Date: 02/11/2025 Noted Allergy Reaction SEASONAL ALLERGIES 09/01/2010 5 - Intolerance Comments: Trees, ragweed Date Reviewed: 04/28/2024 Reviewed by: Consuelo Casey MA - Fully Assessed Reason for Visit: ED Follow-up [821] Cmt: [facility] ER 02/04/25 Prescriptions as of 02/11/2025 - levonorgestrel (LILETTA INTRAUTERINE) 52 mg by INTRAUTERINE route one time only. - vits62/FA/om3/dha/epa ( GUMMY ORAL) Take by mouth once daily. Has iron but unsure if folic acid - promethazine (PHENERGAN) 12.5 mg tablet Take 1 tablet by mouth every 6 hours as needed. - albuterol HFA (PROVENTIL HFA, VENTOLIN HFA) 90 mcg/actuation inhaler Inhale 2 Puffs as instructed every 4 hours as needed. Problem List As Of Date 02/11/2025 Noted Resolved Chronic nasal congestion [R09.81] 03/08/2012 03/10/2019 Quit smoking [Z87.891] 08/29/2018 08/26/2020 History of anxiety [Z86.59] 08/29/2018 Patient request for diagnostic testing [Z01.89] 08/29/2018 03/10/2019 Encounter for test, result positive [*08/29/2018 08/26/2020 Rh negative, antepartum [O26.899, Z67.91] 08/30/2018 04/09/2024 Benign gestational thrombocytopenia, antepartum*12/13/2018 08/26/2020 Marijuana use [F12.90] 08/26/2020 Low-lying placenta [O44.40] 11/18/2020 02/02/2021 Marginal insertion of umbilical cord affecting *11/18/2020 04/09/2024 Supervision of other high risk pregnancies, thi*01/31/2021 04/09/2024 Anxiety [F41.9] 10/06/2022 Closed head injury [S09.90XA] 10/06/2022 Contusion of multiple sites [T07.XXXA] 10/06/2022 History of umbilical hernia repair [Z98.890, Z8*10/06/2022 Muscle strain of left shoulder region [S46.912A]10/06/2022 Acute pain of left shoulder [M25.512] 10/17/2022 Upper back pain [M54.9] 10/17/2022 Encounter Status:Closed by JONATHAN STOVER on 02/11/25[facility] 02-04-2025 Radiology Diagnostic study note [facility] Imaging Services [address] [place], [place] [address] Chest PA and Lateral MR#: [id number] Acct: [id number] Name: BOWEN JONES TALITA Rep #: [id number] : 2000 F 24 From: Omar Loredo MD PCP: DIPESH Goel Status: REG E R Study:Chest PA and Lateral Date of Exam: 02/04/25 Exam# [id number] Ordering Dr: Maximo Lew DO PROCEDURE: CHEST PA AND LATERAL 02/04/2025 REASON FOR EXAM: SYNCOPE TECHNIQUE: CHEST PA AND LATERAL COMPARISON: Prior study dated January 28, 2025. FINDINGS: Hardware: None Heart: The heart size is normal. Mediastinum: The mediastinal contour is unremarkable. Lungs: The lungs are clear. Bones: RAD/Chest PA and Lateral IMPRESSION: NO ACUTE FINDINGS. Reading Location: [place] [address] CC: LEAD ATG DEVELOPER-C Michelle Bashir; Dr. Maximo Lew, ~ Voice And Data Technician: Signed [facility]06-17-2025 NoteHNO ID: [id number] Author: MAKENZIE CORCORAN LPN Service: ? Author Type: LICENSED NURSE Type: Progress Notes Filed: 02/03/2025 09:31 Note Text: ED Follow-Up Note Provider Action / FYI: Call completed by: EDIE Patient seen in ED: Out of Network ED Contact made with Patient: No, left message. Makenzie Corcoran LPN February 03, 2025 9:31 [facility]06-16-2025 NoteHNO ID: [id number] Author: MAKENZIE CORCORAN LPN Service: ? Author Type: LICENSED NURSE Type: Progress Notes Filed: 02/02/2025 14:21 Note Text: ED Follow-Up Note Provider Action / FYI: Call completed by: EDIE Patient seen in ED: Out of Network ED Contact made with Patient: No, left message. Makenzie Corcoran LPN February 02, 2025 2:21 [facility]06-16-2025 History of Present illness Narrative* Makenzie Corcoran LPN - 02/02/2025 2:20 PM EDT ED Follow-Up Note Provider Action / FYI: Call completed by: EDIE Patient seen in ED: Out of Network ED Contact made with Patient: No, left message. Makenzie Corcoran LPN February 02, 2025 2:21 PM documented in this encounterUniversity Hospitals [facility]06-16-2025 NotePatient Outreach (AGFAMPLE) BOWEN JONES ([id number]) 89 F Date Time Provider Department 02/02/25 MICHELLE BASHIR During your visit today, we recorded the following information about you: Makenzie Corcoran LPN 02/02/2025 2:21 PM Signed ED Follow-Up Note Provider Action / FYI: Call completed by: EDIE Patient seen in ED: Out of Network ED Contact made with Patient: No, left message. Makenzie Corcoran LPN February 02, 2025 2:21 PM Makenzie Corcoran LPN 02/03/2025 9:31 AM Signed ED Follow-Up Note Provider Action / FYI: Call completed by: EDIE Patient seen in ED: Out of Network ED Contact made with Patient: No, left message. Makenzie Corcoran LPN February 03, 2025 9:31 AM Allergies As of Date: 02/02/2025 Noted Allergy Reaction SEASONAL ALLERGIES 09/01/2010 5 - Intolerance Comments: Trees, ragweed Date Reviewed: 04/28/2024 Reviewed by: Consuelo Casey MA - Fully Assessed Reason for Visit: ED Follow-up [821] Cmt: [facility] 01/28/2025 Prescriptions as of 02/03/2025 - levonorgestrel (LILETTA INTRAUTERINE) 52 mg by INTRAUTERINE route one time only. - vits62/FA/om3/dha/epa ( GUMMY ORAL) Take by mouth once daily. Has iron but unsure if folic acid - promethazine (PHENERGAN) 12.5 mg tablet Take 1 tablet by mouth every 6 hours as needed. - albuterol HFA (PROVENTIL HFA, VENTOLIN HFA) 90 mcg/actuation inhaler Inhale 2 Puffs as instructed every 4 hours as needed. Problem List As Of Date 02/02/2025 Noted Resolved Chronic nasal congestion [R09.81] 03/08/2012 03/10/2019 Quit smoking [Z87.891] 08/29/2018 08/26/2020 History of anxiety [Z86.59] 08/29/2018 Patient request for diagnostic testing [Z01.89] 08/29/2018 03/10/2019 Encounter for test, result positive [*08/29/2018 08/26/2020 Rh negative, antepartum [O26.899, Z67.91] 08/30/2018 04/09/2024 Benign gestational thrombocytopenia, antepartum*12/13/2018 08/26/2020 Marijuana use [F12.90] 08/26/2020 Low-lying placenta [O44.40] 11/18/2020 02/02/2021 Marginal insertion of umbilical cord affecting *11/18/2020 04/09/2024 Supervision of other high risk pregnancies, thi*01/31/2021 04/09/2024 Anxiety [F41.9] 10/06/2022 Closed head injury [S09.90XA] 10/06/2022 Contusion of multiple sites [T07.XXXA] 10/06/2022 History of umbilical hernia repair [Z98.890, Z8*10/06/2022 Muscle strain of left shoulder region [S46.912A]10/06/2022 Acute pain of left shoulder [M25.512] 10/17/2022 Upper back pain [M54.9] 10/17/2022 Encounter Status:Closed by MAKENZIE CORCORAN on 02/02/25[facility] 01-28-2025 Discharge summary [facility] Medical Records Department [address] [place] [address] Emergency Department Summary 01/28/25 MR#: [id number] Acct: [id number] Name: BOWEN JONES Rep #:[id number] : 2000 24 From: Blanco Alfaro MD PCP: VIVIAN GoelC Status:REG E R Location: ED HPI History of Present Illness Chief Complaint: Abd Pain Detail of Chief Complaint: Predominantly central abdominal pain that is worse with stretching and wors Informant: patient Onset/Context/Timing Onset: Month(s) (1 month) Context: Gradual Onset Timing: Intermittent and Waxes and wanes Quality: Fullness, stretching discomfort supraumbilical Location: Supraumbilical Current Severity: Mild Maximum Severity: Moderate Worsened by: Foods in general when she feels bloated and when she stretches. Relieved by: Nothing Associated Symptoms Associated Symptoms: Nausea. Patient's last bowel movement was normal. Narrative Narrative: Patient is a 24-year-old female. She had surgery by Dr. Qureshi for hernia. Office follow-up visit was reviewed. This visit was May 2024. Patient had surgery for epigastric reducible hernia April 2024. There was fat containedin the hernia. Patient stated that she had triple hernia repair. Review of records indicates surgery occurred in April. She had 2 visits for postoperative pain May 10, 2024 and June 01, 2024 and reports were authored by Dr. Nii Jiménez and Dr. Maximo Manning. She was recently seen for abdominal pain by Dr. Marilyn Simpson on December 18. The CAT scan revealed an IUD to be inposition. Patient states her last menses was not normal. The IUD was placed a couple of months ago. There was no abnormal findings noted by radiologist and by diet. Because review of the scan. Patient now presents with supraumbilical midline and pain that is worse with eating anything and when she stretches. She has had no nausea, vomiting or diarrhea. She is not constipated. She denies dysuria, frequency, urgency or hematuria. She has no respiratory symptoms. There is no history of trauma. She has been released to return to work with no restrictions. Prior similar symptoms: Yes Recent Illness/Hospitalization: No PFSH [facility] Medical History IUD (intrauterine device) in place Smoker Acute bronchitis Irregular heart beat Migraines Heart palpitations Marijuana use Alcohol use Easy bruising Restless legs Back pain Injury of head and neck Syncope Loss of consciousness Heartburn Bronchitis with influenza Shortness of breath on exertion Vapes nicotine containing substance Leg cramps Hypotension Vaginal delivery SROM (spontaneous rupture of membranes) Anxiety (05/06/24) Home Medications ?Medication ?Instructions ?Recorded ?Last Taken ?Type albuterol sulfate 90 mcg/actuation 1 - 2 puff inhalati on Q4H PRN PRN 04/15/20 Unknown Rx aerosol inhaler Wheezing ##1 dicyclomine 10 mg capsule 20 mg (2 x 10 mg) PO TIDAC # 20 01/28/25 Unknown Rx CAPSULES Allergy/AdvReac Type Severity Reaction Status Date / Time No Known Allergies Allergy Verified 12/18/24 10:34 Family History Mother Heart disease Cancer skin Grandmother Hypertension Seizures Thyroid disorder Cancer skin Grandfather Cancer skin Surgical History S/P hernia repair History of umbilical hernia repair [place] teeth removed History of tonsillectomy Social History Smoking Status: Former smoker alcohol intake: never substance use type: does not use ROS ROS ED Constitutional Constitutional ED: Denies chills, fever(s), subjective, sweats or weight loss Cardiovascular Cardiovascular: Denies chest pain or palpitations Respiratory/Chest Respiratory/Chest: Denies cough, dyspnea or dyspnea on exertion Gastrointestinal Gastrointestinal: Reports abdominal pain and nausea; Denies constipation, diarrhea, melena or vomiting Genitourinary Genitourinary ED: Denies dysuria, hematuria or urinary frequency Musculoskeletal Musculoskeletal: Denies arthralgias, back pain, myalgias or neck pain Integumentary Denies rash Neurologic Neurologic: Denies weakness Hematologic/Lymphatic Hematologic/Lymphatic: Reports systems reviewed and no addt'l complaints, exceptas documented EXAM Physical Exam Const Vital Signs: 01/28/25 11:11 01/28/25 13:12 01/28/25 15:00 Temperature 97.8 F Temperature Source Oral Pulse Rate 88 84 84 Respiratory Rate 16 18 16 Blood Pressure 147/93 H 141/92 H Blood Pressure Mean 111 108 Pulse Ox 99 100 100 Oxygen Delivery Method Room Air Room Air Room Air Positive well nourished and well developed Constitutional Narrative: Patient appears in no distress at the end of the room. Blood pressure is elevated. General Appearance ED: well developed and NAD; Negative for pallor HEENT Reports moist mucous membranes HEENT Narrative: Head is atraumatic normocephalic. Ears normal. Nares patent. Eyes PERRL and EOMs intact bilaterally General Eye ED: Negative for pale conjunctiva or scleral icterus Neck no lymphadenopathy, supple and no JVD Chest Wall inspection of chest normal and palpation of chest normal Resp normal respiratory effort and clear to auscultation bilaterally Cardio regular rate, regular rhythm, S1 normal heart sound, S2 normal heart sound and no murmurs GI no masses; Negative for normal to inspection, nondistended, normoactive bowel sounds, non-tender, non-distended or hepatosplenomegaly GI Narrative: Patient is tympanitic to percussion. She complained of discomfort with percussion however there wasno guarding with deep palpation. She had generalized pain. Patient had a prior piercing of her umbilicus which is well-healed with no evidence of infection. There is no evidence of an umbilical hernia. Inspection: abdominal distention Auscultation: hypoactive bowel sounds Palpation: soft and tender other (Throughout); Negative for guarding, splenomegaly, mass or reboundtenderness present Back/Spine no CVA tenderness Extremity normal to inspection Neuro oriented x3 and CN's II-XII intact bilaterally Sensorium / Orientation: alert Psych Psych Narrative: Affect is flat. Skin no rashes or lesions noted, no wounds and skin turgor normal General Skin Exam: elasticity normal; Negative for jaundice or pallor MDM MDM MDM Narrative Medical decision making narrative: Patient had postoperative pain and was recently seen for abdominal pain. CAT scan revealed no abnormality. Her exam in my opinion is not concerning. Because she is tympanitic will obtain abdominal x-rays to determine if she has paucity of gas or stool. Also will obtain CBC to assess white count differential and BMP to assess renal function, electrolytes and anion gap. Since she had irregular periods serum test was obtained. Would not expect her to have umbilical or supraumbilical painfrom early . Patient raise concern regarding IUD. In light of the fact that she had a scanapproximately 1 month ago that revealed proper position of the IUD in my opinionno further investigation is warranted or indicated. Prior inpatient records, outpatient records and ED visits are summarized in the HPI narrative. History & Record Review Additional record(s) reviewed:: Prior inpatient record, Prior outpatient record and Prior ED visit Lab Data Attestation: I reviewed the patient's lab results. Lab results narrative: CBC is normal. UA is unremarkable. BMP is pending and test is negative. Time of this addendum is 1507. Labs: Laboratory Results - last 24 hr 01/28/25 01/28/25 13:50 13:52 WBC 8.5 RBC 4.43 Hgb 13.6 Hct 40.1 MCV 90.5 MCH 30.7 MCHC 33.9 RDW Std Deviation 43.3 RDW Coeff of Tony 13.1 Plt Count 214 MPV 10.5 Immature Gran % (Auto) 0.400 Neut % (Auto) 68.3 Lymph % (Auto) 23.7 [place] % (Auto) 4.9 Eos % (Auto) 2.2 Baso % (Auto) 0.5 Absolute Neuts (auto) 5.8 Absolute Lymphs (auto) 2.02 Nucleated RBC % 0 Sodium 139 Potassium 3.8 Chloride 105 Carbon Dioxide 22.4 Anion Gap 12 BUN 10 Creatinine 0.72 Estim Creat Clear Calc 101.95 Est GFR (MDRD) Non-Af 119 BUN/Creatinine Ratio 13.7 Glucose 88 Calcium 8.9 Urine Color Straw Cancelled Urine Clarity Clear Cancelled Urine pH 8.0 Cancelled Ur Specific [place] 1.015 Cancelled U Specif Grav (Refrac) Cancelled Urine Protein 15 H Cancelled Urine Glucose (UA) Normal Cancelled Urine Ketones Negative Cancelled Urine Occult Blood Negative Cancelled Urine Nitrite Negative Cancelled Urine Bilirubin Negative Cancelled Urine Urobilinogen 1 H Cancelled Ur Leukocyte Esterase Negative Cancelled Urine RBC 0-5 SEEN Cancelled Urine WBC 0-5 SEEN Cancelled Ur Squamous Epith Cells 5-10 SEEN Cancelled Ur Transition Epith Cell Cancelled Ur Renal Epithelial Cell Cancelled Calcium Oxalate Crystal Cancelled Uric Acid Crystals Cancelled Triple Phos Crystals Cancelled Other Crystals Cancelled Amorphous Sediment Cancelled Urine Bacteria 0 SEEN Cancelled Hyaline Casts Cancelled Fine Granular Casts Cancelled Coarse Granular Casts Cancelled Waxy Casts Cancelled RBC Casts Cancelled WBC Casts Cancelled Urine Mucus 0 SEEN Cancelled Urine Trichomonas Cancelled Urine Yeast Cancelled Urine Test Negative Radiography Chest X-Ray - ED: Read by ED Physician (Three-view abdominal series reveals no abnormality of the chest portion. The cardiac silhouette and size normal. Lungparenchyma normal. Hilum is normal. Osseous trucks there is no acute process. Abdominal portion reveals an IUD in proper position. There is nosevere gas pattern. There is a m) Diagnostic Testing: Clinical Impression(s) from Imaging Studies Acute Abdomen Series 01/28/25 14:00 IMPRESSION: Moderate amount of fecal material seen in the colon. IUD is seen within the pelvis. Reading Location: [place] [address] Treatment and Re-Evaluation :: patient was informed of her laboratory results x-ray results. She was struck to follow-up with her doctor. She was prescribed dicyclomine. Comments:: Since ago and evidence of endorgan dysfunction patient has no historyof hypertension this will need to be reassessed in 1 to 2 weeks. Discharge Plan Triage Chief Complaint: Abd Pain ED Provider: Blanco Alfaro Dx/Rx/DC Orders Clinical Impression: Obstipation, Elevated blood-pressure reading without diagnosis of hypertension,IUD (intrauterine device) in place Instructions: ED Constipation (Adult), ED Hypertension, To Be Confirmed Prescriptions: New dicyclomine 10 mg capsule 20 mg PO TIDAC Qty: 20 0RF No Action albuterol sulfate 1 INHALER inhaler 1 - 2 puff inhalation Q4H PRN PRN (Reason: Wheezing) Qty: 1 0RF Primary Care Provider: Michelle Bashir NP Referrals: Familia Starks, [Med Staff - Active Staff] - 10-14 Days if not better Michelle Bashir NP, LEAD ATG DEVELOPER-C [Primary Care Provider] - 1 Week if not improving Activity Restrictions/Additional Instructions: 1. The radiologist read that you have increased amount of stool in your colon. Recommend MiraLAX orMetamucil 2-3 times a day for the next week. 2. Take medication as prescribed 3. Follow-up with your provider Michelle for blood pressure recheck since your blood pressure is elevated. Print Language: Ukrainian Disposition Disposition: Home, Self Care What to do if you have Problems For any increased pain, shortness of breath, bleeding, nausea or vomiting, chestpain, or any unexpected problems, contact your Primary Care Provider. Call [facility] ([phone]) or report tothe closest Emergency Room. Call 911 if necessary. 01/28/25 1532 Cosigner Signature (if applicable): CC: DIPESH Bashir ~ Signed [facility]06-11-2025 Radiology Diagnostic study note [facility] Imaging Services [address] [place] [address] Acute Abdomen Inc Chest MR#: [id number] Acct: [id number] Name: BOWEN JONES Rep #: [id number] : 2000 F 24 From: Omar Loredo MD PCP: DIPESH Goel Status: REG E R Study:Acute Abdomen Inc Chest Date of Exam: 01/28/25 Exam# [id number] Ordering Dr: Eliud Alfaro MD PROCEDURE: ACUTE ABDOMEN INC CHEST 01/28/2025 REASON FOR EXAM: Diffuse abdominal pain. TECHNIQUE: Single view chest with supine and upright views of the abdomen. COMPARISON: None FINDINGS: Hardware: None Heart: The heart size is normal. Lungs: Hyperinflation. The lungs are clear. Bowel gas: Moderate constipation identified with fecal material distributed throughout the colon. No evidence of bowel obstruction. Free air: No free air. Calcifications: No suspicious calcifications. Bones: The bones are unremarkable. Other: IUD is seen within the pelvis. RAD/Acute Abdomen Inc Chest IMPRESSION: Moderate amount of fecal material seen in the colon. IUD is seen within the pelvis. Reading Location: [facility] CC: DIPESH Bashir; Dr. Blanco Alfaro MD ~ Voice And Data Technician: Signed [facility]06-11-2025 Discharge summary Author Blanco Alfaro [facility] Note Date/Time January 28, 2025 3:32 pm [facility] Medical Records Department [address] [place] [address] Emergency Department Summary 01/28/25 MR#: [id number] Acct: [id number] Name: BOWEN JONES Rep #:[id number] : 2000 24 From: Blanco Alfaro MD PCP: VIVIAN GoelC Status:REG E R Location: ED HPI History of Present Illness Chief Complaint: Abd Pain Detail of Chief Complaint: Predominantly central abdominal pain that is worse with stretching and wors Informant: patient Onset/Context/Timing Onset: Month(s) (1 month) Context: Gradual Onset Timing: Intermittent and Waxes and wanes Quality: Fullness, stretching discomfort supraumbilical Location: Supraumbilical Current Severity: Mild Maximum Severity: Moderate Worsened by: Foods in general when she feels bloated and when she stretches. Relieved by: Nothing Associated Symptoms Associated Symptoms: Nausea. Patient's last bowel movement was normal. Narrative Narrative: Patient is a 24-year-old female. She had surgery by Dr. Qureshi for hernia. Office follow-up visit was reviewed. This visit was May 2024. Patient had surgery for epigastric reducible hernia April 2024. There was fat containedin the hernia. Patient stated that she had triple hernia repair. Review of records indicates surgery occurred in April. She had 2 visits for postoperative pain May 10, 2024 and June 01, 2024 and reports were authored by Dr. Nii Jiménez and Dr. Maximo Manning. She was recently seen for abdominal pain by Dr. Marilyn Simpson on December 18. The CAT scan revealed an IUD to be inposition. Patient states her last menses was not normal. The IUD was placed a couple of months ago. There was no abnormal findings noted by radiologist and by diet. Because review of the scan. Patient now presents with supraumbilical midline and pain that is worse with eating anything and when she stretches. She has had no nausea, vomiting or diarrhea. She is not constipated. She denies dysuria, frequency, urgency or hematuria. She has no respiratory symptoms. There is no history of trauma. She has been released to return to work with no restrictions. Prior similar symptoms: Yes Recent Illness/Hospitalization: No PFSH PFS Medical History IUD (intrauterine device) in place Smoker Acute bronchitis Irregular heart beat Migraines Heart palpitations Marijuana use Alcohol use Easy bruising Restless legs Back pain Injury of head and neck Syncope Loss of consciousness Heartburn Bronchitis with influenza Shortness of breath on exertion Vapes nicotine containing substance Leg cramps Hypotension Vaginal delivery SROM (spontaneous rupture of membranes) Anxiety (05/06/24) Home Medications ?Medication ?Instructions ?Recorded ?Last Taken ?Type albuterol sulfate 90 mcg/actuation 1 - 2 puff inhalati on Q4H PRN PRN 04/15/20 Unknown Rx aerosol inhaler Wheezing ##1 dicyclomine 10 mg capsule 20 mg (2 x 10 mg) PO TIDAC # 20 01/28/25 Unknown Rx CAPSULES Allergy/AdvReac Type Severity Reaction Status Date / Time No Known Allergies Allergy Verified 12/18/24 10:34 Family History Mother Heart disease Cancer skin Grandmother Hypertension Seizures Thyroid disorder Cancer skin Grandfather Cancer skin Surgical History S/P hernia repair History of umbilical hernia repair [place] teeth removed History of tonsillectomy Social History Smoking Status: Former smoker alcohol intake: never substance use type: does not use ROS ROS ED Constitutional Constitutional ED: Denies chills, fever(s), subjective, sweats or weight loss Cardiovascular Cardiovascular: Denies chest pain or palpitations Respiratory/Chest Respiratory/Chest: Denies cough, dyspnea or dyspnea on exertion Gastrointestinal Gastrointestinal: Reports abdominal pain and nausea; Denies constipation, diarrhea, melena or vomiting Genitourinary Genitourinary ED: Denies dysuria, hematuria or urinary frequency Musculoskeletal Musculoskeletal: Denies arthralgias, back pain, myalgias or neck pain Integumentary Denies rash Neurologic Neurologic: Denies weakness Hematologic/Lymphatic Hematologic/Lymphatic: Reports systems reviewed and no addt'l complaints, exceptas documented EXAM Physical Exam Const Vital Signs: 01/28/25 11:11 01/28/25 13:12 01/28/25 15:00 Temperature 97.8 F Temperature Source Oral Pulse Rate 88 84 84 Respiratory Rate 16 18 16 Blood Pressure 147/93 H 141/92 H Blood Pressure Mean 111 108 Pulse Ox 99 100 100 Oxygen Delivery Method Room Air Room Air Room Air Positive well nourished and well developed Constitutional Narrative: Patient appears in no distress at the end of the room. Blood pressure is elevated. General Appearance ED: well developed and NAD; Negative for pallor HEENT Reports moist mucous membranes HEENT Narrative: Head is atraumatic normocephalic. Ears normal. Nares patent. Eyes PERRL and EOMs intact bilaterally General Eye ED: Negative for pale conjunctiva or scleral icterus Neck no lymphadenopathy, supple and no JVD Chest Wall inspection of chest normal and palpation of chest normal Resp normal respiratory effort and clear to auscultation bilaterally Cardio regular rate, regular rhythm, S1 normal heart sound, S2 normal heart sound and no murmurs GI no masses; Negative for normal to inspection, nondistended, normoactive bowel sounds, non-tender, non-distended or hepatosplenomegaly GI Narrative: Patient is tympanitic to percussion. She complained of discomfort with percussion however there was no guarding with deep palpation. She had generalized pain. Patient had a prior piercing of her umbilicus which is well-healed with no evidence of infection. There is no evidence of an umbilical hernia. Inspection: abdominal distention Auscultation: hypoactive bowel sounds Palpation: soft and tender other (Throughout); Negative for guarding, splenomegaly, mass or rebound tenderness present Back/Spine no CVA tenderness Extremity normal to inspection Neuro oriented x3 and CN's II-XII intact bilaterally Sensorium / Orientation: alert Psych Psych Narrative: Affect is flat. Skin no rashes or lesions noted, no wounds and skin turgor normal General Skin Exam: elasticity normal; Negative for jaundice or pallor MDM MDM MDM Narrative Medical decision making narrative: Patient had postoperative pain and was recently seen for abdominal pain. CAT scan revealed no abnormality. Her exam in my opinion is not concerning. Because she is tympanitic will obtain abdominal x-rays to determine if she has paucity of gas or stool. Also will obtain CBC to assess white count differential and BMP to assess renal function, electrolytes and anion gap. Since she had irregular periods serum test was obtained. Would not expect her to have umbilical or supraumbilical pain from early . Patient raise concern regarding IUD. In light of the fact that she had a scan approximately 1 month ago that revealed proper position of the IUD in my opinionno further investigation is warranted or indicated. Prior inpatient records, outpatient records and ED visits are summarized in the HPI narrative. History & Record Review Additional record(s) reviewed:: Prior inpatient record, Prior outpatient record and Prior ED visit Lab Data Attestation: I reviewed the patient's lab results. Lab results narrative: CBC is normal. UA is unremarkable. BMP is pending and test is negative. Time of this addendum is 1507. Labs: Laboratory Results - last 24 hr 01/28/25 01/28/25 13:50 13:52 WBC 8.5 RBC 4.43 Hgb 13.6 Hct 40.1 MCV 90.5 MCH 30.7 MCHC 33.9 RDW Std Deviation 43.3 RDW Coeff of Tony 13.1 Plt Count 214 MPV 10.5 Immature Gran % (Auto) 0.400 Neut % (Auto) 68.3 Lymph % (Auto) 23.7 [place] % (Auto) 4.9 Eos % (Auto) 2.2 Baso % (Auto) 0.5 Absolute Neuts (auto) 5.8 Absolute Lymphs (auto) 2.02 Nucleated RBC % 0 Sodium 139 Potassium 3.8 Chloride 105 Carbon Dioxide 22.4 Anion Gap 12 BUN 10 Creatinine 0.72 Estim Creat Clear Calc 101.95 Est GFR (MDRD) Non-Af 119 BUN/Creatinine Ratio 13.7 Glucose 88 Calcium 8.9 Urine Color Straw Cancelled Urine Clarity Clear Cancelled Urine pH 8.0 Cancelled Ur Specific [place] 1.015 Cancelled U Specif Grav (Refrac) Cancelled Urine Protein 15 H Cancelled Urine Glucose (UA) Normal Cancelled Urine Ketones Negative Cancelled Urine Occult Blood Negative Cancelled Urine Nitrite Negative Cancelled Urine Bilirubin Negative Cancelled Urine Urobilinogen 1 H Cancelled Ur Leukocyte Esterase Negative Cancelled Urine RBC 0-5 SEEN Cancelled Urine WBC 0-5 SEEN Cancelled Ur Squamous Epith Cells 5-10 SEEN Cancelled Ur Transition Epith Cell Cancelled Ur Renal Epithelial Cell Cancelled Calcium Oxalate Crystal Cancelled Uric Acid Crystals Cancelled Triple Phos Crystals Cancelled Other Crystals Cancelled Amorphous Sediment Cancelled Urine Bacteria 0 SEEN Cancelled Hyaline Casts Cancelled Fine Granular Casts Cancelled Coarse Granular Casts Cancelled Waxy Casts Cancelled RBC Casts Cancelled WBC Casts Cancelled Urine Mucus 0 SEEN Cancelled Urine Trichomonas Cancelled Urine Yeast Cancelled Urine Test Negative Radiography Chest X-Ray - ED: Read by ED Physician (Three-view abdominal series reveals no abnormality of the chest portion. The cardiac silhouette and size normal. Lungparenchyma normal. Hilum is normal. Osseous trucks there is no acute process. Abdominal portion reveals an IUD in proper position. There is no severe gas pattern. There is a m) Diagnostic Testing: Clinical Impression(s) from Imaging Studies Acute Abdomen Series 01/28/25 14:00 IMPRESSION: Moderate amount of fecal material seen in the colon. IUD is seen within the pelvis. Reading Location: [place] [address] Treatment and Re-Evaluation :: patient was informed of her laboratory results x-ray results. She was struck to follow-up with her doctor. She was prescribed dicyclomine. Comments:: Since ago and evidence of endorgan dysfunction patient has no historyof hypertension this will need to be reassessed in 1 to 2 weeks. Discharge Plan Triage Chief Complaint: Abd Pain ED Provider: Blanco Alfaro Dx/Rx/DC Orders Clinical Impression: Obstipation, Elevated blood-pressure reading without diagnosis of hypertension,IUD (intrauterine device) in place Instructions: ED Constipation (Adult), ED Hypertension, To Be Confirmed Prescriptions: New dicyclomine 10 mg capsule 20 mg PO TIDAC Qty: 20 0RF No Action albuterol sulfate 1 INHALER inhaler 1 - 2 puff inhalation Q4H PRN PRN (Reason: Wheezing) Qty: 1 0RF Primary Care Provider: Michelle Bashir NP Referrals: Familia Starks DO [Med Staff - Active Staff] - 10-14 Days if not better Michelle Bashir LEAD ATG DEVELOPER, LEAD ATG DEVELOPER-C [Primary Care Provider] - 1 Week if not improving Activity Restrictions/Additional Instructions: 1. The radiologist read that you have increased amount of stool in your colon. Recommend MiraLAX or Metamucil 2-3 times a day for the next week. 2. Take medication as prescribed 3. Follow-up with your provider Michelle for blood pressure recheck since your blood pressure is elevated. Print Language: Ukrainian Disposition Disposition: Home, Self Care What to do if you have Problems For any increased pain, shortness of breath, bleeding, nausea or vomiting, chestpain, or any unexpected problems, contact your Primary Care Provider. Call [facility] ([phone]) or report to the closest Emergency Room. Call 911 if necessary. 01/28/25 1532 <Electronically signed by Blanco Alfaro MD> Cosigner Signature (if applicable): CC: DIPESH Bashir ~ Signed [facility] Work Phone: 1([phone]) 599-171606-11-2025 Hospital Discharge instructions Additional Instructions 1. The radiologist read that you have increased amount of stool in your colon. Recommend MiraLAX or Metamucil 2-3 times a day for the next week. 2. Take medication as prescribed 3. Follow-up with your provider Michelle for blood pressure recheck since your blood pressure is elevated.[facility] Work Phone: 1(943) 527-101605-12-2025 NoteHNO ID: [id number] Author: MAKENZIE CORCORAN LPN Service: ? Author Type: LICENSED NURSE Type: Progress Notes Filed: 12/29/2024 13:32 Note Text: ED Follow-Up Note Provider Action / FYI: Call completed by: EDIE Patient seen in ED: Out of Network ED Contact made with Patient: No, left message. Makenzie Corcoran LPN December 29, 2024 1:31 [facility]05-12-2025 History of Present illness Narrative* Makenzie Corcoran LPN - 12/29/2024 1:30 PM EDT ED Follow-Up Note Provider Action / FYI: Call completed by: EDIE Patient seen in ED: Out of Network ED Contact made with Patient: No, left message. Makenzie Corcoran LPN December 29, 2024 1:31 PM documented in this encounterUniversity Hospitals Geaug[facility]05-12-2025 NotePatient Outreach (AGFAMPLE) BOWEN JONES ([id number]) 89 F Date Time Provider Department 12/29/24 MICHELLE BASHIR During your visit today, we recorded the following information about you: Makenzie Corcoran LPN 12/29/2024 1:32 PM Signed ED Follow-Up Note Provider Action / FYI: Call completed by: EDIE Patient seen in ED: Out of Network ED Contact made with Patient: No, left message. Makenzie Corcoran LPN December 29, 2024 1:31 PM Allergies As of Date: 12/29/2024 Noted Allergy Reaction SEASONAL ALLERGIES 09/01/2010 5 - Intolerance Comments: Trees, ragweed Date Reviewed: 04/28/2024 Reviewed by: Consuelo Casey MA - Fully Assessed Reason for Visit: ED Follow-up [821] Cmt: Deanna ED 12/18/2024 Prescriptions as of 12/29/2024 - levonorgestrel (LILETTA INTRAUTERINE) 52 mg by INTRAUTERINE route one time only. - vits62/FA/om3/dha/epa ( GUMMY ORAL) Take by mouth once daily. Has iron but unsure if folic acid - promethazine (PHENERGAN) 12.5 mg tablet Take 1 tablet by mouth every 6 hours as needed. - albuterol HFA (PROVENTIL HFA, VENTOLIN HFA) 90 mcg/actuation inhaler Inhale 2 Puffs as instructed every 4 hours as needed. Problem List As Of Date 12/29/2024 Noted Resolved Chronic nasal congestion [R09.81] 03/08/2012 03/10/2019 Quit smoking [Z87.891] 08/29/2018 08/26/2020 History of anxiety [Z86.59] 08/29/2018 Patient request for diagnostic testing [Z01.89] 08/29/2018 03/10/2019 Encounter for test, result positive [*08/29/2018 08/26/2020 Rh negative, antepartum [O26.899, Z67.91] 08/30/2018 04/09/2024 Benign gestational thrombocytopenia, antepartum*12/13/2018 08/26/2020 Marijuana use [F12.90] 08/26/2020 Low-lying placenta [O44.40] 11/18/2020 02/02/2021 Marginal insertion of umbilical cord affecting *11/18/2020 04/09/2024 Supervision of other high risk pregnancies, thi*01/31/2021 04/09/2024 Anxiety [F41.9] 10/06/2022 Closed head injury [S09.90XA] 10/06/2022 Contusion of multiple sites [T07.XXXA] 10/06/2022 History of umbilical hernia repair [Z98.890, Z8*10/06/2022 Muscle strain of left shoulder region [S46.912A]10/06/2022 Acute pain of left shoulder [M25.512] 10/17/2022 Upper back pain [M54.9] 10/17/2022 Encounter Status:Closed by MAKENZIE CORCORAN on 12/29/24[facility] 06-05-2024 History of Present illness Narrative* Makenzie Corcoran LPN - 06/05/2024 11:01 AM EDT ED Follow Up: Patient discharged from [facility] ED on 06/01/2024. 1. How are you feeling since your ED visit? Attempted to contact pt, pt phone is not working at this time. Have your symptoms improved or resolved? Attempted to contact pt, pt phone is not working at this time. 2. Were you prescribed any medications while in the ED or advised to stop any medication? Attemptedto contact pt, pt phone is not working at this time. - If yes, were you able to fill your prescriptions? Attempted to contact pt, pt phone is not working at this time. -if stopped medication, what was the medication? Attempted to contact pt, pt phone is not working at this time. 3. Were you advised to schedule a follow up appointment with your provider? Attempted to contact pt, pt phone is not working at this time. - If no, Do you feel like you need an appointment scheduled? Attempted to contact pt, pt phone is not working at this time. - If yes, Do you need this scheduled now or has this already been scheduled? Attempted to contact pt, pt phone is not working at this time. 4. Were you able to contact the office or financial operations clerk provider prior to your ED visit? Attempted to contact pt, pt phone is not working at this time. 5. Is there anything else I can do for you today? Attempted to contact pt, pt phone is not working at this time. documented in this encounterUniversity Hospitals [facility]09-27-2024 History of Present illness Narrative* Makenzie Corcoran LPN - 05/16/2024 1:20 PM EDT ED Follow Up: Patient discharged from [facility] ED on 05/10/2024. 1. How are you feeling since your ED visit? Left message for pt to call office. Have your symptoms improved or resolved? Left message for pt to call office. 2. Were you prescribed any medications while in the ED or advised to stop any medication? Left message for pt to call office. - If yes, were you able to fill your prescriptions? Left message for pt to call office. -if stopped medication, what was the medication? Left message for pt to call office. 3. Were you advised to schedule a follow up appointment with your provider? Left message for pt to call office. - If no, Do you feel like you need an appointment scheduled? Left message for pt to call office. - If yes, Do you need this scheduled now or has this already been scheduled? Left message for pt tocall office. 4. Were you able to contact the office or financial operations clerk provider prior to your ED visit? Left message forpt to call office. 5. Is there anything else I can do for you today? Left message for pt to call office. documented in this encounterUniversity Hospitals Geaug[facility]09-22-2024 Telephone encounter Note * Telephone Encounter - Estella Bach RN - 05/11/2024 9:45 PM EDT Patient discharged today from [facility] s/p umbilical hernia repair. Patient states she was told to purchase OTC stool softener but unable to recall which one. Unable to fully view records. Advised Patient to ask pharmacist to recommend a stool softener. Patient agreeable and verbalized understanding. [facility]09-22-2024 Miscellaneous Notes* Telephone Encounter - Estella Bach RN - 05/11/2024 9:45 PM EDT Patient discharged today from [facility] s/p umbilical hernia repair. Patient states she was told to purchase OTC stool softener but unable to recall which one. Unable to fully view records. Advised Patient to ask pharmacist to recommend a stool softener. Patient agreeable and verbalized understanding. documented in this encounterUniversity Hospitals Geauga Medical Center09-09-2024 Instructions* Patient Instructions* Leida Barrios APRN.CNP - 04/28/2024 9:13 AM EDT Images from the original note were not included. ASSESSMENT/PLAN: 1. Sinobronchitis - ICD9: 473.9, 490, ICD10: J32.9, J40 - Will begin treatment with as per antibiotic as written, see orders - continue to use albuterol inhaler as needed. - AMOXICILLIN 875 MG-POTASSIUM CLAVULANATE 125 MG TABLET - PREDNISONE 20 MG TABLET - Follow-up with your PCP in 3-5 days if symptoms have not improved or sooner if symptoms worsen - Discussed red flags and need for immediate medical evaluation if any occur. - Discussed supportive care treatment with fluids, rest and analgesia. - Discussed expected course of illness Leida Barrios APRN.VARGAS Adult Sinusitis Patient Education What is Sinusitis? Sinusitis [cijd-awf-wjnw-tis] is inflammation of the sinuses or swelling of the lining of the sinus cavity or nose. During an infection the sinuses become blocked with fluid causing swelling of the lining of the sinuses. Symptoms: (viral and bacterial infections) Stuffy nose Runny nose Postnasal drip Fever Toothache Headache Tiredness Cough Sore throat Face and head pressure and or pain Common causes: 98% of sinus infections are viral caused by viruses. Risk Factors of Sinusitis Include: Allergies, air pollution, indoor humidity and outdoor temperature changes, andstructural changes inthe nose may contribute to sinus pain, pressure and congestion. When to get help? Temperature greater than 100.4 F Symptoms lasting more than 10 days or worsening symptoms greater than 7-10 days. If you do not improve or worsen after a course of antibiotics, you should be re-examined. Diagnosis and Treatment: Your healthcare provider will ask a number of questions about your symptoms and how long they have occurred. If symptoms of sinusitis persist greater than 10 days, it is possible you have a bacterial sinus infection and an antibiotic is prescribed. If it is viral, antibiotics will not help. You may be instructed to take rvbi-foz-yolmsui medications for symptoms. including fever reducers acetaminophen or ibuprofen, nasal saline spray, cough and cold preparations and decongestants as prescribed by the physician, nurse practitioner or physician salon shampoo assistant. Self-Care and Prevention: Rest Fluids for hydration Good hand washing Humidifier Avoid smoking and exposure to second hand smoke Avoid sick contacts documented in this encounterUniversity Hospitals Ge[facility] Center09-09-2024 History of Present illness Narrative* Leida Barrios APRN.VARGAS - 04/28/2024 9:08 AM EDT Subjective HPI Bowen Jones is a 23 year old female who presents with 3 weeks of nasal congestion and drainage. She has had some sinus pressure and feels short of breath at times. She has had an occasional cough. She has been using her albuterol inhaler more frequently than normal. She has also taken tylenol for sinus pain. She has not had a fever. Review of Systems Constitutional: Positive for malaise/fatigue. Negative for chills and fever. HENT: Positive for congestion, sinus pain and sore throat. Negative for ear pain. Respiratory: Positive for cough and shortness of breath. Negative for sputum production. Cardiovascular: Negative for chest pain. Gastrointestinal: Negative for diarrhea, nausea and vomiting. Musculoskeletal: Negative for myalgias. Neurological: Negative for headaches. BP 102/72 Pulse 90 Temp 36.6 C (97.8 F) Resp 20 Wt 57 kg (125 lb 10.6 oz) LMP 12/24/2023 (Approximate) SpO2 97% BMI 22.08 kg/m PAST MEDICAL HISTORY No date: Allergic rhinitis No date: anxiety 10/06/2022: Closed head injury 03/15/2024: Cyst of left ovary 11/18/2020: Low-lying placenta Comment: 01/31/21- No longer low lying via ultrasound. Anahy Weeks APRN.CNM 11/18/20:recheck placental location in 8-12 WEEKS. Kerri Godwin MD 09/2011: Menarche 03/15/2024: Miscarriage at 8 to 28 weeks gestation 04/29/2012: NEGATIVE HISTORY OF Comment: Normal Color Vision No date: NEGATIVE MEDICAL HISTORY PAST SURGICAL HISTORY 03/20/2024: D&C, DIAG AND/OR THERAPEUTIC Comment: Suction D&C 05/31/2015: NEXPLANON INSERTION No date: REPAIR EPIGASTRIC HERNIA,REDUC No date: TONSILLECTOMY PRIMARY/SECONDARY <AGE 12 ALLERGIES Seasonal Allergies MEDICATIONS albuterol HFA (PROVENTIL HFA, VENTOLIN HFA) 90 mcg/actuation inhaler Inhale 2 Puffs as instructed every 4 hours as needed. amoxicillin-clavulanate potassium (AUGMENTIN) 875-125 mg per tablet Take 1 tablet by mouth two times a day for 7 days. predniSONE (DELTASONE) 20 mg tablet Take 2 tablets by mouth once daily for 4 days. Take daily with food. levonorgestrel (LILETTA INTRAUTERINE) 52 mg by INTRAUTERINE route one time only. (Patient not taking: Reported on 04/28/2024) vits62/FA/om3/dha/epa ( GUMMY ORAL) Take by mouth once daily. Has iron but unsure if folic acid (Patient not taking: Reported on 04/28/2024) promethazine (PHENERGAN) 12.5 mg tablet Take 1 tablet by mouth every 6 hours as needed. (Patient not taking: Reported on 04/28/2024) FAMILY HISTORY Problem Relation Age of Onset Heart Mother other (bipolar) Father No Known Problems Sister No Known Problems Sister No Known Problems Brother No Known Problems Brother Heart Maternal Grandmother No Known Problems Maternal Grandfather other (bipolar) Paternal Grandmother other (bipolar) Paternal Grandfather other (Negative) Other Heart Brother 14 pericarditis Social History Tobacco Use Smoking status: Former Current packs/day: 0.00 Types: Cigarettes Quit date: 04/26/2020 Years since quittin.0 Smokeless tobacco: Never Tobacco comments: vape Vaping Use Vaping status: Former Substances: Nicotine, Flavoring Substance Use Topics Alcohol use: No Drug use: Not Currently Types: Marijuana Objective Physical Exam Vitals and nursing note reviewed. Constitutional: General: She is not in acute distress. Appearance: Normal appearance. She is not ill-appearing. HENT: Right Ear: Tympanic membrane, ear canal and external ear normal. Left Ear: Tympanic membrane, ear canal and external ear normal. Nose: Nasal tenderness, mucosal edema, congestion and rhinorrhea present. Mouth/Throat: Mouth: Mucous membranes are moist. Pharynx: Oropharynx is clear. Uvula midline. No oropharyngeal exudate or posterior oropharyngeal erythema. Cardiovascular: Rate and Rhythm: Normal rate and regular rhythm. Heart sounds: Normal heart sounds. Pulmonary: Effort: Pulmonary effort is normal. No respiratory distress. Breath sounds: Normal breath sounds. No wheezing or rales. Musculoskeletal: Cervical back: Neck supple. Lymphadenopathy: Cervical: No cervical adenopathy. Skin: General: Skin is warm and dry. Findings: No erythema or rash. Neurological: Mental Status: She is alert. ASSESSMENT/PLAN: 1. Sinobronchitis - ICD9: 473.9, 490, ICD10: J32.9, J40 - Will begin treatment with as per antibiotic as written, see orders - continue to use albuterol inhaler as needed. - AMOXICILLIN 875 MG-POTASSIUM CLAVULANATE 125 MG TABLET - PREDNISONE 20 MG TABLET - Follow-up with your PCP in 3-5 days if symptoms have not improved or sooner if symptoms worsen - Discussed red flags and need for immediate medical evaluation if any occur. - Discussed supportive care treatment with fluids, rest and analgesia. - Discussed expected course of illness Leida Barrios APRN.CUSTODIAL SERVICES MANAGER documented in this encounterUniversity Hospitals Geaug[facility] Center08-21-2024 History of Present illness Narrative* Mckenna Chaparro MD - 04/09/2024 8:24 AM EDT DATE OF SERVICE: 04/09/2024 PROBLEM: Bowen Jones presents for postop visit. SURGERY & DATE: 03/20/24 PATHOLOGY: POC SUBJECTIVE/INTERVAL HISTORY: Bowen Jones reports that she feels tired and has had intermittentheadaches since surgery. No fever or chills. No shortness of breath, cough, or chest pain. . Patient reports that her appetite is good. No abdominal pain, nausea, vomiting, diarrhea, or constipation.No dysuria, gross hematuria, urinary frequency, urinary urgency, or incontinence. IUD placed duringprocedure. Bleeding was heavier for about two weeks but has now slowed down. OBJECTIVE: VITALS: 100/60 HEENT: Normocephalic, atraumatic, mucus membranes moist, and no lesions NECK: Not examined LUNGS: Normal respiratory effort. ASSESSMENT: S/p Suction D&C for Missed AB PLAN: 1. Discussed results of pathology 2. CBC ordered Mckenna Chaparro MD documented in this encounterUniversity Hospitals Geauga [facility] Center07-31-2024 History of Present illness Narrative* Mckenna Salas RN - 03/19/2024 8:37 AM EDT Received records from [facility] [place] for your review Scan on 03/18/2024 8:31 PM by Provider, External, PASaadiaC: Miscellaneous Clinical Documents documented in this encounterUniversity Hospitals Geauga Medical Center07-30-2024 History of Present illness Narrative* Carmenza Pisano MD - 03/18/2024 5:54 PM EDT The patient presents for requested ultrasound. Full report available in the Imaging tab in Epic. Carmenza Pisano MD documented in this encounterUniversity Hospitals Geauga [facility] Center07-30-2024 History of Present illness Narrative* Vonda Earl MD - 03/18/2024 4:01 PM EDT Bowen Jones is a 23 year old female who presents for problem visit for f/u early . HPI: 23 YOF notes she has not had vaginal bleeding but has had a lot of lightheadedness and not feeling and nausea and vomiting. Has been in the ED b/c has needed IVF. Has rx for antinausea medications. Has been taking promethazine. Thinks zofran helped more OB History T2 L2 SAB0 IAB0 Ectopic0 Multiple0 Live Births2 Siebel Consultant History LMP: 12/24/2023 (Approximate), Age at Menarche: Age at First : Age at Menopause: Siebel Consultant History Comments: Sexual Activity: Yes; No partner data on record Contraception: No contraception data on record PAST MEDICAL HISTORY Diagnosis Date Allergic rhinitis anxiety Closed head injury 10/06/2022 Cyst of left ovary 03/15/2024 Low-lying placenta 11/18/2020 01/31/21- No longer low lying via ultrasound. Anahy Weeks APRN.CNM 11/18/20:recheck placental location in 8-12 WEEKS. Kerri Godwin MD Menarche 09/2011 Miscarriage at 8 to 28 weeks gestation 03/15/2024 NEGATIVE HISTORY OF 04/29/2012 Normal Color Vision NEGATIVE MEDICAL HISTORY PAST SURGICAL HISTORY Procedure Laterality Date NEXPLANON INSERTION 05/31/2015 REPAIR EPIGASTRIC HERNIA,REDUC TONSILLECTOMY PRIMARY/SECONDARY <AGE 11 FAMILY HISTORY Problem Relation Age of Onset Heart Mother other (bipolar) Father No Known Problems Sister No Known Problems Sister No Known Problems Brother No Known Problems Brother Heart Maternal Grandmother No Known Problems Maternal Grandfather other (bipolar) Paternal Grandmother other (bipolar) Paternal Grandfather other (Negative) Other Heart Brother 14 pericarditis Social History Tobacco Use Smoking status: Former Packs/day: .5 Types: Cigarettes Quit date: 04/26/2020 Years since quittin.8 Smokeless tobacco: Never Tobacco comments: vape Vaping Use Vaping Use: Former Substances: Nicotine, Flavoring Substance Use Topics Alcohol use: No Drug use: Not Currently Types: Marijuana Current Outpatient Medications Medication Sig vits62/FA/om3/dha/epa ( GUMMY ORAL) Take by mouth once daily. Has iron but unsure if folic acid promethazine (PHENERGAN) 12.5 mg tablet Take 1 tablet by mouth every 6 hours as needed. albuterol HFA (PROVENTIL HFA, VENTOLIN HFA) 90 mcg/actuation inhaler Inhale 2 Puffs as instructed every 4 hours as needed. No current facility-administered medications for this visit. Allergies As of Date: 03/18/2024 Allergen Noted Reaction SEASONAL ALLERGIES 09/01/2010 Intolerance Fully Assessed 03/18/2024 Allergies and current medication updated:Yes EXAM: BP 102/68 Ht 5' 3.25 (1.61m) Wt 119 lb (54.0kg) LMP 12/24/2023 BMI 20.90 kg/(m^2). GENERAL: pleasant, female in no apparent distress ASSESSMENT AND PLAN: missed 9 week gest age, 6 weeks by CRL H/o chlamydia - rescreen for STIs today n.v of , cont. promethazine, rx for zofran as well reviewed pelvic US results- attempting to get documentation of previous US that demonstrated FHTs, patient reports she has had 4 US over past 2 weeks. Reviewed ED US from [facility] this weekend. contraceptive counseling, considering IUD at [facility] of D&C as desires lARC Vonda Earl MD documented in this encounterUniversity Hospitals Geauga Medical Center07-30-2024 History and physical note * Vonda Earl MD - 03/18/2024 3:50 PM EDT Pre-Op History and Physical HPI: The patient is a 23 year old female presenting for pre-operative visit. She is scheduled for Suction D&C, for missed on 03/20/24. Procedure discussed along with risks, benefits and complications. Other alternatives discussed for management. Consent form signed? Yes. PAST MEDICAL HISTORY Diagnosis Date Allergic rhinitis anxiety Closed head injury 10/06/2022 Cyst of left ovary 03/15/2024 Low-lying placenta 11/18/2020 01/31/21- No longer low lying via ultrasound. Anahy Weeks APRN.JESSI 11/18/20:recheck placental location in 8-12 WEEKS. Kerri Godwin MD Menarche 09/2011 Miscarriage at 8 to 28 weeks gestation 03/15/2024 NEGATIVE HISTORY OF 04/29/2012 Normal Color Vision NEGATIVE MEDICAL HISTORY PAST SURGICAL HISTORY Procedure Laterality Date NEXPLANON INSERTION 05/31/2015 REPAIR EPIGASTRIC HERNIA,REDUC TONSILLECTOMY PRIMARY/SECONDARY Current Outpatient Medications Medication Sig Dispense Refill vits62/FA/om3/dha/epa ( GUMMY ORAL) Take by mouth once daily. Has iron but unsure if folic acid promethazine (PHENERGAN) 12.5 mg tablet Take 1 tablet by mouth every 6 hours as needed. 60 tablet 2 albuterol HFA (PROVENTIL HFA, VENTOLIN HFA) 90 mcg/actuation inhaler Inhale 2 Puffs as instructed every 4 hours as needed. 18 g 0 No current facility-administered medications for this visit. ALLERGIES: Seasonal Allergies PERSONAL HISTORY: Social History Tobacco Use Smoking status: Former Packs/day: .5 Types: Cigarettes Quit date: 04/26/2020 Years since quittin.8 Smokeless tobacco: Never Tobacco comments: vape Vaping Use Vaping Use: Former Substances: Nicotine, Flavoring Substance Use Topics Alcohol use: No Drug use: Not Currently Types: Marijuana FAMILY HISTORY: FAMILY HISTORY Problem Relation Age of Onset Heart Mother other (bipolar) Father No Known Problems Sister No Known Problems Sister No Known Problems Brother No Known Problems Brother Heart Maternal Grandmother No Known Problems Maternal Grandfather other (bipolar) Paternal Grandmother other (bipolar) Paternal Grandfather other (Negative) Other Heart Brother 14 pericarditis REVIEW OF SYMPTOMS: GENERAL: denies fevers or chills ENDOCRINOLOGY: has not been on steroids Cardiology : denies palpitations or chest pain Respiratory: denies SOB or cough Hematology: denies history of prolonged bleeding or easy bruising or VTE Allergy: Denies history of personal or family history of allergy to anesthesia PHYSICAL EXAMINATION: VITALS: Blood pressure 102/68, height 160.7 cm (5' 3.25), weight 54 kg (119 lb), last menstrual period 12/24/2023. GENERAL: The patient is well nourished, well hydrated in no acute distress. , The patient is oriented to time, place, and person. NECK: Supple. No lynphadenopathy, normal thyroid, no thyromegaly. LUNGS: Clear to auscultation bilaterally. no wheezes, rhonchi or rales HEART: Regular rate and rhythm, Normal heart sounds, and No murmurs or gallops IMPRESSION: 9 week missed , CRL 5 week size PLAN: The risks/benefits/alternatives and personal involved for the planned suction D&C and possible IUD insertion for contraception were reviewed with the patient. Her questions were answered toher satisfaction and she desires to proceed. Consent was signed. I reviewed with her postop instructions and expectations. Does not desire genetic testing on POCs. Considering if she wants to have POCs released to her. Is aware Dr. Burgos or Snehal will be doing her surgery. I have reviewed and updated past medical and surgical history, medications and allergies Vonda Earl M.D. [facility]07-30-2024 History and physical note* Vonda Earl MD - 03/18/2024 3:50 PM EDT Pre-Op History and Physical HPI: The patient is a 23 year old female presenting for pre-operative visit. She is scheduled for Suction D&C, for missed on 03/20/24. Procedure discussed along with risks, benefits and complications. Other alternatives discussed for management. Consent form signed? Yes. PAST MEDICAL HISTORY Diagnosis Date Allergic rhinitis anxiety Closed head injury 10/06/2022 Cyst of left ovary 03/15/2024 Low-lying placenta 11/18/2020 01/31/21- No longer low lying via ultrasound. Anahy Weeks APRN.MIRIAM 11/18/20:recheck placental location in 8-12 WEEKS. Kerri Godwin MD Menarche 09/2011 Miscarriage at 8 to 28 weeks gestation 03/15/2024 NEGATIVE HISTORY OF 04/29/2012 Normal Color Vision NEGATIVE MEDICAL HISTORY PAST SURGICAL HISTORY Procedure Laterality Date NEXPLANON INSERTION 05/31/2015 REPAIR EPIGASTRIC HERNIA,REDUC TONSILLECTOMY PRIMARY/SECONDARY <AGE 12 Current Outpatient Medications Medication Sig Dispense Refill vits62/FA/om3/dha/epa ( GUMMY ORAL) Take by mouth once daily. Has iron but unsure if folic acid promethazine (PHENERGAN) 12.5 mg tablet Take 1 tablet by mouth every 6 hours as needed. 60 tablet 2 albuterol HFA (PROVENTIL HFA, VENTOLIN HFA) 90 mcg/actuation inhaler Inhale 2 Puffs as instructed every 4 hours as needed. 18 g 0 No current facility-administered medications for this visit. ALLERGIES: Seasonal Allergies PERSONAL HISTORY: Social History Tobacco Use Smoking status: Former Packs/day: .5 Types: Cigarettes Quit date: 04/26/2020 Years since quittin.8 Smokeless tobacco: Never Tobacco comments: vape Vaping Use Vaping Use: Former Substances: Nicotine, Flavoring Substance Use Topics Alcohol use: No Drug use: Not Currently Types: Marijuana FAMILY HISTORY: FAMILY HISTORY Problem Relation Age of Onset Heart Mother other (bipolar) Father No Known Problems Sister No Known Problems Sister No Known Problems Brother No Known Problems Brother Heart Maternal Grandmother No Known Problems Maternal Grandfather other (bipolar) Paternal Grandmother other (bipolar) Paternal Grandfather other (Negative) Other Heart Brother 14 pericarditis REVIEW OF SYMPTOMS: GENERAL: denies fevers or chills ENDOCRINOLOGY: has not been on steroids Cardiology : denies palpitations or chest pain Respiratory: denies SOB or cough Hematology: denies history of prolonged bleeding or easy bruising or VTE Allergy: Denies history of personal or family history of allergy to anesthesia PHYSICAL EXAMINATION: VITALS: Blood pressure 102/68, height 160.7 cm (5' 3.25), weight 54 kg (119 lb), last menstrual period 12/24/2023. GENERAL: The patient is well nourished, well hydrated in no acute distress. , The patient is oriented to time, place, and person. NECK: Supple. No lynphadenopathy, normal thyroid, no thyromegaly. LUNGS: Clear to auscultation bilaterally. no wheezes, rhonchi or rales HEART: Regular rate and rhythm, Normal heart sounds, and No murmurs or gallops IMPRESSION: 9 week missed , CRL 5 week size PLAN: The risks/benefits/alternatives and personal involved for the planned suction D&C and possible IUD insertion for contraception were reviewed with the patient. Her questions were answered toher satisfaction and she desires to proceed. Consent was signed. I reviewed with her postop instructions and expectations. Does not desire genetic testing on POCs. Considering if she wants to have POCs released to her. Is aware Dr. Burgos or Snehal will be doing her surgery. I have reviewed and updated past medical and surgical history, medications and allergies Vonda Earl M.D. documented in this encounterUniversity Hospitals Geauga [facility] Center07-30-2024 Telephone encounter Note * Telephone Encounter - Vonda Earl MD - 03/18/2024 12:58 PM EDT Yes, I didn't see that. I would have her stop up here to discuss w/ one of us. Can you ask Ade to let us know the prelim results?. Thanks! Vonda Earl MD [facility]07-30-2024 Miscellaneous Notes* Telephone Encounter - Vonda Earl MD - 03/18/2024 12:58 PM EDT Yes, I didn't see that. I would have her stop up here to discuss w/ one of us. Can you ask Ade to let us know the prelim results?. Thanks! Vonda Earl MD * Telephone Encounter - Vonda Earl MD - 03/18/2024 12:24 PM EDT Please try to contact patient for f/u US this week. if possible and f/u w/ a physician after. Quant is signifcantly elevated and she has had some bleeding. We don't have to wait until next week. thanks. Vonda Earl MD documented in this encounterUniversity Hospitals Geauga [facility] Center07-30-2024 Telephone encounter Note * Telephone Encounter - Vonda Earl MD - 03/18/2024 12:24 PM EDT Please try to contact patient for f/u US this week. if possible and f/u w/ a physician after. Quant is signifcantly elevated and she has had some bleeding. We don't have to wait until next week. thanks. Vonda Earl MD [facility]07-29-2024 History of Present illness Narrative* Makenzie Corcoran LPN - 03/17/2024 1:20 PM EDT ED Follow Up: Patient discharged from [facility] ED on 03/15/2024. 1. How are you feeling since your ED visit? Attempted to contact pt, unable to leave message as pt's VM is not set up. Have your symptoms improved or resolved? Attempted to contact pt, unable to leave message as pt's VM is not set up. 2. Were you prescribed any medications while in the ED or advised to stop any medication? Attemptedto contact pt, unable to leave message as pt's VM is not set up. - If yes, were you able to fill your prescriptions? Attempted to contact pt, unable to leave message as pt's VM is not set up. -if stopped medication, what was the medication? Attempted to contact pt, unable to leave message as pt's VM is not set up. 3. Were you advised to schedule a follow up appointment with your provider? Attempted to contact pt, unable to leave message as pt's VM is not set up. - If no, Do you feel like you need an appointment scheduled? Attempted to contact pt, unable to leave message as pt's VM is not set up. - If yes, Do you need this scheduled now or has this already been scheduled? Attempted to contact pt, unable to leave message as pt's VM is not set up. 4. Were you able to contact the office or financial operations clerk provider prior to your ED visit? Attempted to contact pt, unable to leave message as pt's VM is not set up. 5. Is there anything else I can do for you today? Attempted to contact pt, unable to leave message as pt's VM is not set up. documented in this encounterUniversity Hospitals Geauga Medical Center07-29-2024 History of Present illness Narrative* Krystal Henderson APRN.CUSTODIAL SERVICES MANAGER - 03/17/2024 9:16 AM EDT Bowen Jones is a 23 year old female who presents for follow up ER visit. HPI: Bowen went to ER on 03/15/24 for abdominal cramping. She is here today feeling lightheaded. She has been having trouble eating and drinking due to nausea. She is currently taking Reglan. No bleeding. STUDY: FIRST TRIMESTER OBSTETRICAL ULTRASOUND REASON FOR EXAM: Female, 23 years old abdominal cramping LMP: TECHNIQUE: Transvaginal TECHNICAL QUALITY: Adequate. PRIOR ULTRASOUND: None. FINDINGS: There is visualization of a single gestational sac in a normal intrauterine position. The mean sac diameter (MSD) measures 3.62 cm, indicating an estimated gestational age (EGA) of 9 weeks, 0 days. The gestational sac shape is within normal limits. There is a visualized yolk sac. The yolk sac measures 2.6 mm. The placenta is non-visualized. pole is observed. The crown-rump length (CRL) measures 5.2 mm, indicating an estimated gestational age (EGA) of 6 weeks, 3 days. There is no demonstrated cardiac activity.. There is heterogeneous density adjacent to the sac likely representing a large subchorionic bleed The estimated gestation age (EGA) by LMP is 9 weeks, 1 days. The estimated date of delivery (PLACIDO) by LMP is October 17, 2024. The estimated gestation age (EGA) by US is 6 weeks, 3 days. The estimated date of delivery (PLACIDO) by US is . The uterus measures 12.4 x 9.4 x 6.5 cm. There is no demonstrated uterine fibroid. The cervix is closed. The right ovary measures 3.4 x 1.5 x 1.6 cm. There is no right ovarian cyst. There is no visualized right adnexal mass or complex lesion. The left ovary measures 3.2 x 2.3 x 1.9 cm. There is a cyst measuring 1.7 x 1.6 cm likely corpus luteum. There is no visualized left adnexal mass or complex lesion. There is no fluid in the cul de sac. US/Transvaginal w/Preg US IMPRESSION: Intrauterine gestation which is small for maternal dates without cardiac activity likely representing spontaneous demise in utero association with subchorionic bleed. Clinical correlation recommended and follow-up studies if indicated OB History T2 L2 SAB0 IAB0 Ectopic0 Multiple0 Live Births2 Siebel Consultant History LMP: 12/24/2023 (Approximate), Age at Menarche: Age at First : Age at Menopause: Siebel Consultant History Comments: Sexual Activity: Yes; No partner data on record Contraception: No contraception data on record PAST MEDICAL HISTORY Diagnosis Date Allergic rhinitis anxiety Closed head injury 10/06/2022 Low-lying placenta 11/18/2020 01/31/21- No longer low lying via ultrasound. Anahy Weeks APRN.CN 11/18/20:recheck placental location in 8-12 WEEKS. Kerri Godwin MD Menarche 2-2011 NEGATIVE HISTORY OF 9--12 Normal Color Vision NEGATIVE MEDICAL HISTORY PAST SURGICAL HISTORY Procedure Laterality Date NEXPLANON INSERTION 05/31/2015 REPAIR EPIGASTRIC HERNIA,REDUC TONSILLECTOMY PRIMARY/SECONDARY <AGE 12 FAMILY HISTORY Problem Relation Age of Onset Heart Mother other (bipolar) Father No Known Problems Sister No Known Problems Sister No Known Problems Brother No Known Problems Brother Heart Maternal Grandmother No Known Problems Maternal Grandfather other (bipolar) Paternal Grandmother other (bipolar) Paternal Grandfather other (Negative) Other Heart Brother 14 pericarditis Social History Tobacco Use Smoking status: Former Packs/day: .5 Types: Cigarettes Quit date: 04/26/2020 Years since quittin.8 Smokeless tobacco: Never Tobacco comments: vape Vaping Use Vaping Use: current everyday user Substances: Nicotine, Flavoring Substance Use Topics Alcohol use: No Drug use: No Current Outpatient Medications Medication Sig metoclopramide HCl (REGLAN) 10 mg tablet Take 10 mg by mouth four times daily. albuterol HFA (PROVENTIL HFA, VENTOLIN HFA) 90 mcg/actuation inhaler Inhale 2 Puffs as instructed every 4 hours as needed. No current facility-administered medications for this visit. Allergies As of Date: 03/17/2024 Allergen Noted Reaction SEASONAL ALLERGIES 09/01/2010 Intolerance Fully Assessed 03/13/2024 REVIEW OF SYSTEMS Expanded ROS: DIRECTOR BUSINESS DEVELOPMENT: Positive for cramping Allergies and current medication updated:Yes EXAM: BP 122/78 Pulse 100 Resp 14 Wt 118 lb (53.5kg) SpO2 99% LMP 12/24/2023 GENERAL: pleasant, female in no apparent distress HEENT: Normocephalic, atraumatic, mucus membranes moist, and no lesions CHEST: Normal inspiratory effort PELVIC: + cramping, mild tenderness with palpation to bilateral adnexa NEURO: alert and oriented x3,exam grossly non-focal EXTREMITIES: normal ASSESSMENT AND PLAN: 1. Threatened miscarriage - ICD9: 640.00, ICD10: O20.0 (primary diagnosis) Had previous ultrasounds at [facility] [place] [facility] [place] [facility]. No records. CRL 5.2 mm. Discussed with Bowen criteria for diagnosis of miscarriage. Without previous records, cannot formally diagnose at miscarriage, but at this point, likely. - COMPLETE BLOOD COUNT - COMPREHENSIVE METABOLIC PANEL - HCG QUANTITATIVE - Repeat viability ultrasound in 11 days - Bleeding, pain, and infection precautions reviewed - Discussed that she may experience spontaneously bleeding - Case reviewed with Dr. Chaparro 2. Nausea and vomiting, unspecified vomiting type - ICD9: 787.01, ICD10: R11.2 - Vitamin B6 and Unisom doses reviewed. - Rx for Promethazine instead of Reglan sent - Fluids encouraged Krystal Henderson APRN.CNP Medical Decision Making: Problems: Low: Acute, uncomplicated illness or injury Data: Unique test(s) ordered: 3+ Risk: Low: Low risk from testing/treatment Moderate: Drug management Medical Decision Making Level: 4 - Moderate documented in this encounterUniversity Hospitals Geauga Medical Center07-25-2024 Instructions* Patient Instructions* Krystal Henderson APRN.CNP - 03/13/2024 4:38 PM EDT MORNING SICKNESS IN by Mary Delatorre M.D. for [employer] As you may already know, morning sickness can often be more appropriately called evening sickness or uqxen-rtdste-wd-the-day sickness. While there are the luz few, most women (50-90%) experience some degree of nausea, some have vomiting, and a few develop a severe form of vomiting duringpregnancy called hyperemesis gravidarum. What causes the nausea and vomiting of ? We can't explain why some people feel fine and others are green for months. Even the same woman mayfeel vastly different in each . There is some relationship between nausea and the level ofthe hormone hCG. In twin pregnancies, and in other situations where the hCG is greater than expected, nausea and vomiting tend to be worse. In a destined for miscarriage, hCG levels tend to be low, and nausea is often less severe. This being said, a lack of nausea doesn't guarantee that the is destined for miscarriage. The fact that nausea and vomiting are often signs of a healthy can offer a silver lining in the dark cloud of miserable nausea. How long will the nausea last? Fortunately, for most women, nausea and vomiting are a first trimester event, peaking at week 9-10 and waning by week 14-16. When you are feeling bad the weeks can go by slowly but most momsdo feel tremendously better by the middle of the . Whether morning sickness is a brief experience or lasts through most of the , there are treatments that can make the weeks or months more tolerable. What can you do about it? Diet: See what works for you. Try eating bland dry foods, and avoid fatty or spicy foods. It is okay to eat a less than perfectly balanced diet in the first trimester. Have your liquids separately from dry foods. Try sports drinks, water, clear juices, Uriel-aid, or non-caffeinated tea. Avoid carbonated beverages that fill up your stomach. Try eating lots of little meals. If you tend to feel sick when you first wake up, leave crackers next to the bed for a quick snack before rising. Keeping healthy snacks with you all day to nibble when you feel queasy can sometimes even prevent nausea from starting. vitamins and nausea: Pre- vitamins can sometimes worsen nausea in . While folate is necessary, especially early in the , it comes as a smaller pill that many people find more tolerable than the complete vitamin pill. Ask your practitioner if it is okay to temporarilyreplace vitamins and iron with just a folate pill if you find a significant worsening in the level of your nausea from the vitamins. Alternative therapies: Acupressure may be used to treat nausea in , and is not known to have any risks for the fetus. Wristbands (marketed for seasickness) that put pressure on an acupressure point at the wrist are often available at drugstores or travel stores. Jordyn root is used for nausea in many traditional cultures. Some women take fresh grated jordyn or jordyn tablets. It is possible that the pill form contains other ingredients or contaminants, so you may want to try fresh jordyn first. Medications: Emetrol is the only nausea medication approved for use in . It is available over the counter and is soothing to the stomach. A prescription medication called Bendectin was available in the -1979's and was shown to be safe in , but the company stopped marketing it in the [place] due to the costs of liability coverage. Bendectin contained 10 milligrams of vitamin B6 and 10 milligrams of Doxylamine. Two tablets were given at bedtime and a total of up to 4 tablets could be used in a 24-hour period. Interestingly, Unisom , which contains a higher dose (25 mg.) of the same medication, Doxylamine, is currently marketed as an wujx-bxy-ipttnqm sleeping pill. Ask your practitioner if creating a vitamin B6/Doxylaminecombination with cocs-sjs-iiyeatn medications would be safe for you. Prescription medications like Compazine and Phenergan can be used if the benefits outweigh possiblerisks, but these have not been clearly shown to be safe in . Zofran , an expensive anti-nausea medication often used to treat nausea from chemotherapy, can also be used. Can I throw up so much it harms the baby? The act of vomiting cannot hurt your fetus, which is protected inside the uterus. If you get dehydrated or develop a metabolic imbalance, this can be unhealthy. As long as you can keep down liquids, you and your baby will generally do all right. Eat when you feel able. If you are unable to keep anyt stefano down, or if you notice potential signs of dehydration such as lightheadedness, or concentratedand/or infrequent urination, call your practitioner. Some women need brief hospital admission for intravenous fluids and anti-nausea medications if their condition becomes severe. This severe form ofnausea and vomiting is called Hyperemesis Gravidarum. As with many symptoms of , remind yourself that this, too, shall pass, and you'll have a wonderful baby to show for it! TREATMENT OPTIONS, SHORT VERSION: Frequent small meals Hydrate throughout day [employer] wrist pressure point applicators Jordyn root (powdered, in capsules) 250mg four times a day Vitamin B6 25 mg tablet three times a day Also may be taken with half a tablet of Unisom three times a day (Doxylamine 12.5 mg) If severe (weight loss, dehydration), call us and come in for IV hydration and possible medication in the form of injections. Prescription medications such as Phenergan, Compazine, Reglan documented in this encounterUniversity Hospitals Geauga [facility] Center07-25-2024 History of Present illness Narrative* Krystal Henderson APRN.CNP - 03/13/2024 4:04 PM EDT Boiling Tub Operator offered: Patient declines. Bowen Jones is a 23 year old female who presents for problem visit of nausea and vomiting and uncertain viability of . HPI: Bowen went to ER on 02/26 and 03/09 for nausea and vomiting, light headedness. Ultrasounds were not done in ER. She reports she has had confirmed intrauterine pregnancies at: [facility] in [facility] pole had heartbeat Clinic in [facility] pole was still measuring 6 weeks, no heartbeat She is taking Reglan and continues to feel nauseated. No bleeding. OB History T2 L2 SAB0 IAB0 Ectopic0 Multiple0 Live Births2 Siebel Consultant History LMP: 12/24/2023 (Approximate), Age at Menarche: Age at First : Age at Menopause: Siebel Consultant History Comments: Sexual Activity: Yes; No partner data on record Contraception: No contraception data on record PAST MEDICAL HISTORY Diagnosis Date Allergic rhinitis anxiety Closed head injury 10/06/2022 Low-lying placenta 11/18/2020 01/31/21- No longer low lying via ultrasound. Anahy Weeks APRN.CNM 11/18/20:recheck placental location in 8-12 WEEKS. Kerri Godwin MD Menarche -2011 NEGATIVE HISTORY OF 04-29-12 Normal Color Vision NEGATIVE MEDICAL HISTORY PAST SURGICAL HISTORY Procedure Laterality Date NEXPLANON INSERTION 05/31/2015 REPAIR EPIGASTRIC HERNIA,REDUC TONSILLECTOMY PRIMARY/SECONDARY <AGE 12 FAMILY HISTORY Problem Relation Age of Onset Heart Mother other (bipolar) Father No Known Problems Sister No Known Problems Sister No Known Problems Brother No Known Problems Brother Heart Maternal Grandmother No Known Problems Maternal Grandfather other (bipolar) Paternal Grandmother other (bipolar) Paternal Grandfather other (Negative) Other Heart Brother 14 pericarditis Social History Tobacco Use Smoking status: Former Packs/day: .5 Types: Cigarettes Quit date: 04/26/2020 Years since quittin.8 Smokeless tobacco: Never Tobacco comments: vape Vaping Use Vaping Use: current everyday user Substances: Nicotine, Flavoring Substance Use Topics Alcohol use: No Drug use: No Current Outpatient Medications Medication Sig ketoconazole (NIZORAL) 2 % cream (Patient not taking: Reported on 02/19/2024) lidocaine (LIDODERM) 5 % Apply 1 Patch as directed once daily. REMOVE AFTER 12 HOURS. (Patient not taking: Reported on 04/13/2023) cyclobenzaprine (FLEXERIL) 10 mg tablet Take 1 tablet by mouth three times daily as needed for muscle spasm. (Patient not taking: Reported on 04/13/2023) albuterol HFA (PROVENTIL HFA, VENTOLIN HFA) 90 mcg/actuation inhaler Inhale 2 Puffs as instructed every 4 hours as needed. No current facility-administered medications for this visit. Allergies As of Date: 03/13/2024 Allergen Noted Reaction SEASONAL ALLERGIES 09/01/2010 Intolerance Fully Assessed 02/19/2024 REVIEW OF SYSTEMS GI: + Nausea and vomiting Expanded ROS: DIRECTOR BUSINESS DEVELOPMENT: Positive for amenorrhea Allergies and current medication updated:Yes EXAM: BP 122/72 Wt 124 lb (56.2kg) LMP 12/24/2023 GENERAL: pleasant, female in no apparent distress HEENT: Normocephalic, atraumatic, mucus membranes moist, and no lesions CHEST: Normal inspiratory effort NEURO: alert and oriented x3,exam grossly non-focal EXTREMITIES: normal ASSESSMENT AND PLAN: 1. with uncertain viability, single or unspecified fetus - ICD9: V23.87, ICD10: O36.80X0 (primary diagnosis) - Brief bedside ultrasound shows intrauterine gestational sac with possible pole without cardiac activity, yolk sac present - Reviewed based on dating of LMP, suspect miscarriage - PELVIC US WHI - COMPLETE BLOOD COUNT - TYPE + SCREEN - HCG QUANTITATIVE - Repeat HCG in 48 hours - To go to ER if changing a pad an hour, fever, chills, or severe pain 2. Nausea/vomiting in - ICD9: 643.90, ICD10: O21.9 - Vitamin B6 and Unisom doses reviewed. Recommend taking with Reglan. - To notify if going longer than 12-24 hours without eating/drinking Krystal Henderson APRN.CNP Medical Decision Making: Problems: Low: Acute, uncomplicated illness or injury Data: Unique source(s) for external note(s) reviewed: 2 Unique test(s) ordered: 3+ Risk: Low: Low risk from testing/treatment Moderate: Drug management Medical Decision Making Level: 4 - Moderate documented in this encounterUniversity Hospitals Geauga [facility] Center07-23-2024 Telephone encounter Note * Telephone Encounter - Mckenna Salas RN - 03/11/2024 11:08 AM EDT Attempted to reach patient. No answer and unable to leave a message. Voicemail not set up. Mckenna Salas RN [facility]07-23-2024 Miscellaneous Notes* Telephone Encounter - Mckenna Salas RN - 03/11/2024 11:08 AM EDT Attempted to reach patient. No answer and unable to leave a message. Voicemail not set up. Mckenna Salas RN * Telephone Encounter - Elizabeth Jiang MD - 03/11/2024 10:38 AM EDT I can see her at 4pm today if patient prefers visit sooner. Elizabeth Jiang MD * Telephone Encounter - Mckenna Salas RN - 03/11/2024 8:20 AM EDT [facility] ER records to to review. Mckenna Salas RN * Telephone Encounter - Gale Downs - 03/10/2024 4:04 PM EDT Patient called was at er last night questioning miscarriage scheduled follow up apt for 03/13 at 4:00 / offered sooner but patient requesting apt after 3:30 due to work schedule Please advise / Thank you documented in this encounterUniversity Hospitals Geauga [facility] Center07-23-2024 Telephone encounter Note * Telephone Encounter - Elizabeth Jiang MD - 03/11/2024 10:38 AM EDT I can see her at 4pm today if patient prefers visit sooner. Elizabeth Jiang MD [facility]07-23-2024 History of Present illness Narrative* Makenzie Corcoran LPN - 03/11/2024 9:47 AM EDT ED Follow Up: Patient discharged from [facility] ED on 03/09/2024. 1. How are you feeling since your ED visit? Attempted to contact pt, unable to leave message as pt's vm is not set up. Have your symptoms improved or resolved? Attempted to contact pt, unable to leave message as pt's vm is not set up. 2. Were you prescribed any medications while in the ED or advised to stop any medication? Attemptedto contact pt, unable to leave message as pt's vm is not set up. - If yes, were you able to fill your prescriptions? Attempted to contact pt, unable to leave message as pt's vm is not set up. -if stopped medication, what was the medication? Attempted to contact pt, unable to leave message as pt's vm is not set up. 3. Were you advised to schedule a follow up appointment with your provider? Attempted to contact pt, unable to leave message as pt's vm is not set up. - If no, Do you feel like you need an appointment scheduled? Attempted to contact pt, unable to leave message as pt's vm is not set up. - If yes, Do you need this scheduled now or has this already been scheduled? Attempted to contact pt, unable to leave message as pt's vm is not set up. 4. Were you able to contact the office or financial operations clerk provider prior to your ED visit? Attempted to contact pt, unable to leave message as pt's vm is not set up. 5. Is there anything else I can do for you today? Attempted to contact pt, unable to leave message as pt's vm is not set up. documented in this encounterUniversity Hospitals Geauga [facility] Center07-23-2024 Telephone encounter Note * Telephone Encounter - Mckenna Salas RN - 03/11/2024 8:20 AM EDT [facility] ER records to to review. Mckenna Salas, RN [facility]07-22-2024 Telephone encounter Note* Telephone Encounter - Gale Downs - 03/10/2024 4:04 PM EDT Patient called was at er last night questioning miscarriage scheduled follow up apt for 03/13 at 4:00 / offered sooner but patient requesting apt after 3:30 due to work schedule Please advise / Thank you [facility] Work Phone: 1(701) 180-754307-11-2024 History of Present illness Narrative* Pat Mcintosh PA - 02/28/2024 8:58 AM EDT This note was created using Nexioriter. Subjective Bowen Jones is a 23 year old female. HPI 23-year-old female presents for nausea, vomiting, concern for umbilical hernia. Patient states that she is 6 weeks . She has been having nausea and vomiting since being . She states that she was seen here about a week ago and told to take Unisom and B6. Patient has been taking this, but it was not helping. She was seen in the ER last night for nausea and vomiting and prescribed Zofran. Patient states this is helping a little bit more. Patient states that due to vomiting so much, she feels like her umbilicus is irritated. She did have an umbilical hernia repair 2 years ago.She has no increase in bulging or swelling. She has a little bit of tenderness around the umbilicus. She has not contacted her surgeon. She has a follow-up with her OB next week. She denies any vaginal bleeding, vaginal discharge. No fevers. No diarrhea. No constipation. No other complaint. PAST MEDICAL HISTORY Diagnosis Date Allergic rhinitis anxiety Closed head injury 10/06/2022 Low-lying placenta 11/18/2020 01/31/21- No longer low lying via ultrasound. Anahy Weeks APRN.JESSI 11/18/20:recheck placental location in 8-12 WEEKS. Kerri Godwin MD Menarche -2011 NEGATIVE HISTORY OF 9-10-12 Normal Color Vision NEGATIVE MEDICAL HISTORY PAST SURGICAL HISTORY Procedure Laterality Date NEXPLANON INSERTION 05/31/2015 REPAIR EPIGASTRIC HERNIA,REDUC TONSILLECTOMY PRIMARY/SECONDARY <AGE 12 ALLERGIES Seasonal Allergies MEDICATIONS ketoconazole (NIZORAL) 2 % cream (Patient not taking: Reported on 02/19/2024) lidocaine (LIDODERM) 5 % Apply 1 Patch as directed once daily. REMOVE AFTER 12 HOURS. (Patient not taking: Reported on 04/13/2023) cyclobenzaprine (FLEXERIL) 10 mg tablet Take 1 tablet by mouth three times daily as needed for muscle spasm. (Patient not taking: Reported on 04/13/2023) albuterol HFA (PROVENTIL HFA, VENTOLIN HFA) 90 mcg/actuation inhaler Inhale 2 Puffs as instructed every 4 hours as needed. FAMILY HISTORY Problem Relation Age of Onset Heart Mother other (bipolar) Father No Known Problems Sister No Known Problems Sister No Known Problems Brother No Known Problems Brother Heart Maternal Grandmother No Known Problems Maternal Grandfather other (bipolar) Paternal Grandmother other (bipolar) Paternal Grandfather other (Negative) Other Heart Brother 14 pericarditis Social History Tobacco Use Smoking status: Former Packs/day: .5 Types: Cigarettes Quit date: 04/26/2020 Years since quittin.8 Smokeless tobacco: Never Tobacco comments: vape Vaping Use Vaping Use: current everyday user Substances: Nicotine, Flavoring Substance Use Topics Alcohol use: No Drug use: No Review of Systems Constitutional: Negative for chills and fever. HENT: Negative for congestion, ear pain and sore throat. Respiratory: Negative for cough and shortness of breath. Cardiovascular: Negative for chest pain. Gastrointestinal: Positive for abdominal pain, nausea and vomiting. Negative for diarrhea. Objective LMP 12/24/2023 (Approximate) Physical Exam Vitals and nursing note reviewed. Constitutional: General: She is not in acute distress. Appearance: Normal appearance. She is not toxic-appearing. HENT: Nose: Nose normal. Mouth/Throat: Mouth: Mucous membranes are moist. Eyes: Conjunctiva/sclera: Conjunctivae normal. Cardiovascular: Rate and Rhythm: Normal rate and regular rhythm. Pulmonary: Effort: Pulmonary effort is normal. Breath sounds: Normal breath sounds. Abdominal: General: Abdomen is flat. Palpations: Abdomen is soft. Tenderness: There is abdominal tenderness in the periumbilical area. Comments: Mild tenderness over the umbilicus. No incarcerated hernia noted. She does have a small deformity of the umbilicus, but states this is her baseline since her surgery. Skin: General: Skin is warm and dry. Neurological: Mental Status: She is alert. Assessment and Plan ASSESSMENT/PLAN: 1. Umbilical pain - ICD9: 789.05, ICD10: R10.33 -No incarcerated hernia seen on exam. Mild tenderness over the umbilicus. Patient has prior repair with sutures. -Patient has had a lot of retching and vomiting due to being . -Recommend calling her surgeon today to see if she can get an appointment today. If unable to follow up today, and tenderness/pain continues, needs to be seen in emergency room. Patient understands. Diagnosis and treatment plan were discussed and questions were answered to the patient's satisfaction. Pt acknowledged understanding of concepts and follow up plan. Specific signs and symptoms that would indicate the need for higher level of care were discussed in detail warranting prompt ER evaluation. YULISSA Morales * Pat Mcintosh PA - 02/28/2024 8:56 AM EDT 23-year-old female presents for concern for umbilical hernia. Patient is 6 weeks . She states that she has had an umbilical hernia repair about 2 years ago. She states that she is hyperemesisand has been vomiting since she got . She was seen in the ER last night and prescribed Zofran. Patient states that she feels like her umbilical hernia area is irritated. She states it is not sticking out more than normal, just tender around the umbilicus. No fevers. documented in this encounterUniversity Hospitals Geauga [facility] Center07-11-2024 History of Present illness Narrative* Makenzie Corcoran LPN - 02/28/2024 8:29 AM EDT ED Follow Up: Patient discharged from [facility] ED on 02/28/2024. 1. How are you feeling since your ED visit? Left message for pt to call office. Have your symptoms improved or resolved? Left message for pt to call office. 2. Were you prescribed any medications while in the ED or advised to stop any medication? Left message for pt to call office. - If yes, were you able to fill your prescriptions? Left message for pt to call office. -if stopped medication, what was the medication? Left message for pt to call office. 3. Were you advised to schedule a follow up appointment with your provider? Left message for pt to call office. - If no, Do you feel like you need an appointment scheduled? Left message for pt to call office. - If yes, Do you need this scheduled now or has this already been scheduled? Left message for pt tocall office. 4. Were you able to contact the office or financial operations clerk provider prior to your ED visit? Left message forpt to call office. 5. Is there anything else I can do for you today? Left message for pt to call office. documented in this encounterUniversity Hospitals Geauga [facility] Center07-02-2024 History of Present illness Narrative* Katelynn Jiang APRN.CUSTODIAL SERVICES MANAGER - 02/19/2024 10:10 AM EDT Subjective Patient came in with complaints of nausea and vomiting. Patient says it has been about 4 days. Patient is set she did take a test and is positive. Patient says she has had extreme vomiting before with her . Patient does have an OB appointment tomorrow. Patient is urinating normal. The history is provided by the patient. No surveillance specialist was used. Review of Systems Constitutional: Negative. Skin: Negative. Objective Physical Exam Constitutional: Appearance: Normal appearance. Cardiovascular: Rate and Rhythm: Normal rate and regular rhythm. Heart sounds: Normal heart sounds. Pulmonary: Effort: Pulmonary effort is normal. Breath sounds: Normal breath sounds. PAST MEDICAL HISTORY Diagnosis Date Allergic rhinitis anxiety Closed head injury 10/06/2022 Low-lying placenta 11/18/2020 01/31/21- No longer low lying via ultrasound. Anahy Weeks APRN.CN 11/18/20:recheck placental location in 8-12 WEEKS. Kerri Godwin MD Menarche -2011 NEGATIVE HISTORY OF 9-10-12 Normal Color Vision NEGATIVE MEDICAL HISTORY PAST SURGICAL HISTORY Procedure Laterality Date NEXPLANON INSERTION 05/31/2015 REPAIR EPIGASTRIC HERNIA,REDUC TONSILLECTOMY PRIMARY/SECONDARY <AGE 12 ALLERGIES Seasonal Allergies MEDICATIONS albuterol HFA (PROVENTIL HFA, VENTOLIN HFA) 90 mcg/actuation inhaler Inhale 2 Puffs as instructed every 4 hours as needed. ketoconazole (NIZORAL) 2 % cream (Patient not taking: Reported on 02/19/2024) lidocaine (LIDODERM) 5 % Apply 1 Patch as directed once daily. REMOVE AFTER 12 HOURS. (Patient not taking: Reported on 04/13/2023) cyclobenzaprine (FLEXERIL) 10 mg tablet Take 1 tablet by mouth three times daily as needed for muscle spasm. (Patient not taking: Reported on 04/13/2023) FAMILY HISTORY Problem Relation Age of Onset Heart Mother other (bipolar) Father No Known Problems Sister No Known Problems Sister No Known Problems Brother No Known Problems Brother Heart Maternal Grandmother No Known Problems Maternal Grandfather other (bipolar) Paternal Grandmother other (bipolar) Paternal Grandfather other (Negative) Other Heart Brother 14 pericarditis Social History Tobacco Use Smoking status: Former Packs/day: .5 Types: Cigarettes Quit date: 04/26/2020 Years since quittin.8 Smokeless tobacco: Never Tobacco comments: vape Vaping Use Vaping Use: current everyday user Substances: Nicotine, Flavoring Substance Use Topics Alcohol use: No Drug use: No ASSESSMENT/PLAN: 1. Nausea and vomiting, unspecified vomiting type - ICD9: 787.01, ICD10: R11.2 [facility] approved list of nausea medications such as Unisom and vitamin B6. Since her appointment is tomorrow she will follow-up with DIRECTOR BUSINESS DEVELOPMENT. Patient does have decreased urinary output she will follow-up with the ER. Patient was okay with this care plan. Katelynn Jiang APRN.VARGAS documented in this encounterUniversity Hospitals Geauga Medical Center03-14-2024 Miscellaneous Notes* Telephone Encounter - Radha Cristina LPN - 11/01/2023 7:31 PM EDT Patient notified.Radha Cristina LPN * Telephone Encounter - Latricia Grissom APRN.VARGAS - 11/01/2023 4:38 PM EDT Syphilis negative HIV negative Hepatitis C negative Hep B negative Attempted to call. No answer. VM message requesting return call. When returns please advise of above. documented in this encounterUniversity Hospitals Geauga Medical Center03-14-2024 Miscellaneous Notes* Telephone Encounter - Katelynn Jiang APRN.CNP - 11/01/2023 8:10 AM EDT Patient notified of positive chlamydia and bacterial vaginosis. Did add Flagyl to the plan educatedpatient about proper use of medication supportive therapy and not to drink alcohol. Please call patient when blood tests return. As they were not back at this time documented in this encounterUniversity Hospitals Geauga Medical Center03-13-2024 Instructions* Patient Instructions* Latricia Grissom APRN.CNP - 10/31/2023 1:44 PM EDT [facility] [address] [place] [address] Emergency Department Diagnosis: Assessment SAFER SEX: Your doctor wants you to have this information about the infections that can be transmitted from sexual contact and how to prevent them. The idea behind safer sex is that you can be sexually active and at the same time reduce the risk of giving or getting a sexually transmitted disease (STD). STD sare transmitted by sharing body fluids which harbor viruses or bacteria. Semen, urine, blood and vaginal mucous can all transmit infections during sex. Examples of sexually transmitted infections include chlamydia, gonorrhea, herpes, hepatitis, genital warts and AIDS. Sexual diseases often cause few or no symptoms until they are advanced, so a person can be infectedand spread the infection without knowing it. You never become immune to sexual diseases. Some STD srespond to treatment very well, others, like AIDS and herpes, cannot be cured, but are treated to reduce their effects. Being careful cannot eliminate all risk of infection, but sex can be made much safer. Safe sexual practices include hugging, body massage, and gentle touching. Masturbation is safe as long as body fluids do not contact any skin that has sores or cuts. Dry kissing and oral sex on a manwearing a latex condom or on a woman wearing a female condom is also safe. Slightly less safe is intercourse while the man wears a latex condom and wet kissing. Alcohol and recreational drugs are often the reason given for not practicing safer sex. These substances affect not only your judgment, but also impair your immune system, making you more vulnerable to disease. Risky and dangerous sexual practices include vaginal or anal sex without a condom, oral sex on a man without a condom, oral sex on a woman without a female condom, using saliva to lubricate a condom,or any other sexual contact in which body fluids or blood from one partner contacts the other. You should use only latex condoms and water soluble lubricants like K-Y jelly. Vaseline or oils used to lubricate a condom will weaken the condom and increase the chance it will break. Use spermacide gel that contains at least 5% Nonoxynol-9 along with the condom; this reduces the risk of as well as transmitting the AIDS virus. Think very carefully before having sex with anyone who is high risk for STD and AIDS. These include IV drug users, people with multiple sexual partners, or those that have had a positive HIV blood test. CHLAMYDIA What is chlamydia? Chlamydia is a serious infection that is spread by having sex with an infected person. It is the most common sexually transmitted disease, or STD. Both men and women can get chlamydia. When left untreated, chlamydia can cause: Damage to the sex organs Sterility (the inability to have children) Tubal pregnancies (which can lead to of mother and/or unborn child) Premature births (giving too early) What are the symptoms of chlamydia? In women About half of the women with chlamydia do not have symptoms. When symptoms are present, they may include: White, yellow, or green discharge (fluid) from the vagina that may have a bad odor Bleeding between periods Itching or burning in or around the vagina Dull pain in the lower abdomen or pelvis Pain or burning when passing urine Painful periods In men Most men have symptoms, although some do not. Symptoms include: Clear or white discharge (fluid) from the penis Pain or burning when passing urine Pain and swelling around the testicles What causes chlamydia? Chlamydia is caused by bacteria. Bacteria that cause the infection can be spread during sex or through contact with the genitals or anus. How can I know if I have chlamydia? If you think you have chlamydia, or any STD, contact your health care provider. He or she will examine you and perform tests, if necessary, to determine if you have an STD. To check for chlamydia, the woman is given a pelvic exam. A sample of fluid is taken from the vagina. In men, a sample of fluid may be taken from the penis. The fluids are then sent to laboratories for testing. Can chlamydia be cured? Yes. Chlamydia can be treated and cured. How is chlamydia treated? Chlamydia is treated with antibiotics, which are medications taken by mouth. Since both you and your sex partner have been infected, both of you must be treated. With treatment, the infection should clear up in about seven days. Continue to take your medication, even if the symptoms go away. Also, never take someone else's medication to treat your illness. By doing so, you may make the infection more difficult to treat. You should also: Tell anyone you have had sex with in the last three months that you are infected. This step is especially important because chlamydia may have no symptoms. Women, especially, may not have symptoms and may not seek testing or treatment unless alerted by their sex partners. Abstain from sex until youhave taken all of your medication. Can I get chlamydia more than once? Yes. What can happen if chlamydia is not treated? In women, chlamydia can lead to pelvic inflammatory disease (PID). PID is a serious infection of the reproductive organs. PID can cause: Infertility Tubal pregnancies (which can lead to of mother and/or unborn child) A mother can also pass the infection to her child during . Infection in newborns can lead to: Eye infections Pneumonia How can I protect myself from chlamydia? Do not have sex with someone you know is infected. Always use a condom during sex. Have sex with only one partner Get tested Where can I learn more? CDC National STD Hotline: Copyright 9041-9511 [facility]. All rights reserved. This information is provided by the [facility] and is not intended to replace the medical advice of your doctor or health care provider. Please consult your health care provider for advice about a specific medical condition. For additional written health information, please contact the [facility] at the [facility] or toll-free extension [phone]. This document was last reviewed on: 2002 index#[id number] documented in this encounterUniversity Hospitals Geauga Medical Center03-13-2024 History of Present illness Narrative* Latricia Grissom APRN.CNP - 10/31/2023 1:36 PM EDT This note was created using [employer]. Subjective Bowen Jones is a 23 year old female. 23 year old female with PMH anxiety presents for STI concerns. Acute onset today Endorses that she was notified by her boyfriend that he tested POSITIVE for chlamydia this morning. Endorses she has light period like cramps, LMP- one week ago Scant vaginal discharge (endorses that it is her baseline) Denies abdominal pain Denies N/V/D Denies back pain Denies sx Denies skin rash or lesions. Denies prior history of gynecological surgery [id number] Presents today for treatment and to be screened for STI. The history is provided by the patient. No surveillance specialist was used. Female Gu Problem This is a new problem. Episode onset: today. The problem occurs continuously. The problem has been unchanged. The patient is experiencing no pain. Nothing relieves the symptoms. Nothing aggravates the symptoms. Associated symptoms include vaginal discharge (states her baseline). Pertinent negativesinclude no chest pain, no anorexia, no chills, no fever, no abdominal pain, no constipation, no diarrhea, no nausea, no vomiting, no dysuria, no frequency, no hematuria, no pelvic pain, no urgency, no vaginal bleeding, no vaginal pain, no headaches, no sore throat, no back pain, no flank pain, no joint pain, no cough, no shortness of breath, no rash and no dyspareunia. There has been no history of trauma. Urine output has been normal. The last void occurred Less than 6 hours ago. She is currently Sexually active. She has 1 sexual partner. Her past medical history does not include terminated , gynecological surgery, miscarriage or appendectomy. Sick contacts: + exposre. She has received no recent medical care. PAST MEDICAL HISTORY Diagnosis Date Allergic rhinitis anxiety Closed head injury 10/06/2022 Low-lying placenta 11/18/2020 01/31/21- No longer low lying via ultrasound. Anahy Weeks APRN.CNM 11/18/20:recheck placental location in 8-12 WEEKS. Kerri Godwin MD Menarche -2011 NEGATIVE HISTORY OF 04-29-12 Normal Color Vision NEGATIVE MEDICAL HISTORY PAST SURGICAL HISTORY Procedure Laterality Date NEXPLANON INSERTION 05/31/2015 REPAIR EPIGASTRIC HERNIA,REDUC TONSILLECTOMY PRIMARY/SECONDARY <AGE 11 ALLERGIES Seasonal Allergies MEDICATIONS ketoconazole (NIZORAL) 2 % cream albuterol HFA (PROVENTIL HFA, VENTOLIN HFA) 90 mcg/actuation inhaler Inhale 2 Puffs as instructed every 4 hours as needed. doxycycline monohydrate (MONODOX) 100 mg capsule Take 1 capsule by mouth two times a day for 7 days. naproxen (NAPROSYN) 500 mg tablet Take 1 tablet by mouth twice daily as needed (FOR PAIN - TAKE WITH FOOD.). (Patient not taking: Reported on 04/13/2023) lidocaine (LIDODERM) 5 % Apply 1 Patch as directed once daily. REMOVE AFTER 12 HOURS. (Patient not taking: Reported on 04/13/2023) cyclobenzaprine (FLEXERIL) 10 mg tablet Take 1 tablet by mouth three times daily as needed for muscle spasm. (Patient not taking: Reported on 04/13/2023) FAMILY HISTORY Problem Relation Age of Onset Heart Mother other (bipolar) Father No Known Problems Sister No Known Problems Sister No Known Problems Brother No Known Problems Brother Heart Maternal Grandmother No Known Problems Maternal Grandfather other (bipolar) Paternal Grandmother other (bipolar) Paternal Grandfather other (Negative) Other Heart Brother 14 pericarditis Social History Tobacco Use Smoking status: Former Packs/day: .5 Types: Cigarettes Quit date: 04/26/2020 Years since quittin.5 Smokeless tobacco: Never Tobacco comments: vape Vaping Use Vaping Use: current everyday user Substances: Nicotine, Flavoring Substance Use Topics Alcohol use: No Drug use: No Review of Systems Constitutional: Negative for chills and fever. HENT: Negative for sore throat. Eyes: Negative for pain, discharge and itching. Respiratory: Negative for apnea, cough, chest tightness and shortness of breath. Cardiovascular: Negative for chest pain. Gastrointestinal: Negative for abdominal pain, anorexia, constipation, diarrhea, nausea and vomiting. Genitourinary: Positive for vaginal discharge (states her baseline). Negative for dyspareunia, dysuria, flank pain, frequency, hematuria, pelvic pain, urgency, vaginal bleeding and vaginal pain. Musculoskeletal: Negative for back pain and joint pain. Skin: Negative for color change and rash. Allergic/Immunologic: Negative for environmental allergies, food allergies and immunocompromised state. Neurological: Negative for dizziness, facial asymmetry and headaches. Hematological: Negative for adenopathy. Does not bruise/bleed easily. Psychiatric/Behavioral: Negative for agitation and behavioral problems. Objective BP 110/78 Pulse 65 Temp 36.9 C (98.5 F) (Tympanic) Resp 18 Wt 55.9 kg (123 lb 3.8 oz) LMP10/23/2022 SpO2 99% BMI 21.15 kg/m Physical Exam Vitals and nursing note reviewed. Constitutional: General: She is not in acute distress. Appearance: Normal appearance. She is normal weight. She is not ill-appearing, toxic-appearing or diaphoretic. HENT: Head: Normocephalic and atraumatic. Right Ear: Ear canal and external ear normal. Left Ear: Ear canal and external ear normal. Nose: Nose normal. No congestion or rhinorrhea. Mouth/Throat: Mouth: Mucous membranes are moist. Pharynx: No oropharyngeal exudate or posterior oropharyngeal erythema. Eyes: General: Right eye: No discharge. Left eye: No discharge. Extraocular Movements: Extraocular movements intact. Conjunctiva/sclera: Conjunctivae normal. Pupils: Pupils are equal, round, and reactive to light. Cardiovascular: Rate and Rhythm: Normal rate and regular rhythm. Pulses: Normal pulses. Heart sounds: Normal heart sounds. No murmur heard. No friction rub. Pulmonary: Effort: Pulmonary effort is normal. No respiratory distress. Breath sounds: Normal breath sounds. No stridor. No wheezing, rhonchi or rales. Chest: Chest wall: No tenderness. Abdominal: General: Abdomen is flat. There is no distension. Palpations: Abdomen is soft. There is no mass. Tenderness: There is no abdominal tenderness. There is no right CVA tenderness, left CVA tenderness, guarding or rebound. Hernia: No hernia is present. Genitourinary: Comments: Decline pelvic exam. Requests to self swab Musculoskeletal: General: No swelling, tenderness, deformity or signs of injury. Normal range of motion. Cervical back: Normal range of motion and neck supple. No rigidity. Right lower leg: No edema. Left lower leg: No edema. Lymphadenopathy: Cervical: No cervical adenopathy. Skin: General: Skin is warm and dry. Capillary Refill: Capillary refill takes less than 2 seconds. Coloration: Skin is not jaundiced or pale. Findings: No bruising, erythema, lesion or rash. Neurological: General: No focal deficit present. Mental Status: She is alert and oriented to person, place, and time. Cranial Nerves: No cranial nerve deficit. Sensory: No sensory deficit. Motor: No weakness. Coordination: Coordination normal. Gait: Gait normal. Psychiatric: Mood and Affect: Mood normal. Behavior: Behavior normal. Thought Content: Thought content normal. Judgment: Judgment normal. Assessment and Plan ASSESSMENT/PLAN: 1. Encounter for screening examination for sexually transmitted disease - ICD9: V74.5, ICD10: Z11.3(primary diagnosis) Boyfriend had sexual relations outside of relationship. Notified today he tested POSITIVE for chlamydia States she would like to be tested and treated. - SYPHILIS TOTAL W/REFLEX - HIV 1 2 COMBO(AG/AB),WITH REFLEX TO DIFFERENTIATION - HEPATITIS C ANTIBODY IA WITH CONFIRMATION - HEP B SURF AG SCRN - BACTERIAL VAGINOSIS NAAT - GILBERTO/TRICHOMONAS NAAT - GONORRHEA/CHLAMYDIA NAAT Have covered for know exposure to Chlamydia Will await additional results to guide treatment as indicated 2. Exposure to chlamydia - ICD9: V01.6, ICD10: Z20.2 Boyfriend tested POSITIVE this morning. Will cover with Doxy Informed no sex for 2 weeks Partners need tested - GONORRHEA/CHLAMYDIA NAAT Latricia Grissom APRN.CNP documented in this encounterUniversity Hospitals Geauga Medical Center11-27-2023 Miscellaneous Notes* Telephone Encounter - Latricia Grissom APRN.CNP - 07/16/2023 7:30 PM EST Foot xray negative Continue post op shoe RICE therapy OTC analgesics. Verbalized understanding. documented in this encounterUniversity Hospitals Geauga Medical Center11-27-2023 History of Present illness Narrative* Kelly Dickson RT(R) - 07/16/2023 11:30 AM EST Radiology Service Progress Note PATIENT NAME: Bowen Jones DATE OF SERVICE: July 16, 2023 TIME: 11:32 AM PATIENT IDENTITY VERIFICATION COMPLETED USING TWO (2) IDENTIFIERS: Name and Date of confirmedby patient verbally. FALL SCREENING: Has the patient had 2 falls in the last year or 1 fall with injury or currently using an Ambulatory Assistive Device (Walker, Cane, Wheelchair, Crutches, etc.)? No PATIENT GENDER DATA: Female. status: : No status: NO. PATIENT RELEVANT IMPLANT DATA REVIEWED: Not Applicable RADIOLOGY DEPARTMENT: General X-ray: Exam(s) Completed: Lower Extremity X- Ray(s): Foot, Left PERIPHERAL IV DATA: Not applicable SIGNED BY: RT Sherri(R) July 16, 2023 11:32 AM documented in this encounterUniversity Hospitals Geauga Medical Center11-26-2023 History of Present illness Narrative* Ree Banks APRN.CNP - 07/15/2023 2:01 PM EST This note was created using [employer]. Subjective Bowen Jones is a 22 year old female.Patient presents with report she was moving furniture and picked up a chest and dropped it on her left foot, specifically first two toes. Reports pain and bruising. Objective BP 125/82 Pulse 85 Temp 37 C (98.6 F) Resp 18 Wt 52.6 kg (116 lb) LMP 10/23/2022 SpO2 98% BMI 19.91 kg/m Physical Exam PHYSICAL EXAMINATION: General appearance: Well appearing, alert, in no acute distress, well-hydrated, well nourished. Musculoskeletal: Positive findings: joint location: left first and second toes on left dip(s) pain,swelling, painful movement, loss of ROM, and injury Peripheral pulses: Normal Neuro: Gait normal. Reflexes normal and symmetric. Sensation grossly intact. Assessment and Plan ASSESSMENT/PLAN: 1. Crushing injury of unspecified left toe(s), initial encounter - ICD9: 928.3, ICD10: S97.102A - XR FOOT GENERAL 3V AP/LAT/OBL LEFT -Applied post op shoe. Patient to return tomorrow for xray. Continue ice and tylenol. Ree Banks APRN.CNP documented in this encounterUniversity Hospitals Geauga Medical Center09-14-2023 Miscellaneous Notes* Telephone Encounter - Anne Marie Aguirre - 05/03/2023 3:45 PM EDT No Show Documentation Bowen Jones no showed for an appointment on 05/03/2023 with Michelle Bashir APRN.CNP at 3:20pm. She was scheduled for Emergency room follow up. I called and left a message for the patient regarding her missed appointment, told her to call the office if she needs to reschedule. Resources discussed/offered to patient: na No show determined to be fault of patient: Yes This is the patients third no show in the last 12 months. Patient was rescheduled for na. Letter mailed : Yes Is this the Third or Fourth No Show? No Anne Marie Aguirre May 03, 2023 3:46 PM documented in this encounterUniversity Hospitals Geauga Medical Center09-07-2023 History of Present illness Narrative* Kika Mccurdy MA - 04/26/2023 8:07 AM EDT ED Follow Up: Patient discharged from [facility] ED on 04/19/23. 1. How are you feeling since your ED visit? Pt doesn't have VM set up unable to leave VM Have your symptoms improved or resolved? Pt doesn't have VM set up unable to leave VM 2. Were you prescribed any medications while in the ED or advised to stop any medication? Pt doesn't have VM set up unable to leave VM - If yes, were you able to fill your prescriptions? Pt doesn't have VM set up unable to leave VM -if stopped medication, what was the medication? Pt doesn't have VM set up unable to leave VM 3. Were you advised to schedule a follow up appointment with your provider? Pt doesn't have VM set up unable to leave VM - If no, Do you feel like you need an appointment scheduled? Pt doesn't have VM set up unable to leave VM - If yes, Do you need this scheduled now or has this already been scheduled? Pt doesn't have VM setup unable to leave VM 4. Were you able to contact the office or financial operations clerk provider prior to your ED visit? Pt doesn't have VM set up unable to leave VM 5. Is there anything else I can do for you today? Pt doesn't have VM set up unable to leave VM documented in this encounterUniversity Hospitals Geauga Medical Center08-31-2023 Hospital Discharge instructions Patient Education 04/19/2023 13:12:42 Rib Contusion or Minor Fracture Rib Contusion or Minor Fracture A rib contusion is a bruise to one or more rib bones. It may cause pain, tenderness, swelling, and a purplish color to the skin. There may be a sharp pain with each breath. A rib contusion takes anywhere from a few days to a few weeks to heal. A minor rib fracture or break may cause the same symptoms as a rib contusion. The small crack may not be seen on a regular chest X-ray. Treatment for both problems is basically the same. Home care You may use [id number] pain medicine to control pain, unless another pain medicine was prescribed. If you have chronic liver or kidney disease or ever had a stomach ulcer or GI (gastrointestinal) bleeding, talk with your healthcare provider before using these medicines. Rest. Don't lift anything heavy or do any activity that causes pain. Apply an ice pack over the injured area for 15 to 20 minutes every 1 to 2 hours. You should do thisfor the first 24 to 48 hours. To make an ice pack, put ice cubes in a plastic bag that seals at thetop. Wrap the bag in a clean, thin towel or cloth. Never put ice or an ice pack directly on the skin. Continue with ice packs as needed for the relief of pain and swelling. The first 3 to 4 weeks of healing will be the most painful. If your pain is not under control with the treatment given, call your healthcare provider. Sometimes a stronger pain medicine may be needed. A nerve block can be done in case of severe pain. It will numb the nerve between the ribs. Follow-up care Follow up with your healthcare provider, or as advised. If X-rays were taken, you will be told of any new findings that may affect your care. Call 911 Call 911 if you have: Dizziness, weakness or fainting Shortness of breath with or without chest discomfort New or worsening pain When to seek medical advice Call your healthcare provider right away if any of these occur: Fever of 100.4 F (38 C) or higher, or as directed by your healthcare provider Chills Stomach pain, vomiting [phone] [employer]. [address] [place] [address]. All rights reserved. This information is not intended as a substitute for professional medical care. Always follow yourhealthcare professional's instructions. Follow Up Care 04/19/2023 12:14:36 With:Call Physician Referral Address:Unknown When:2-4 days [facility] 08-31-2023 Note Discharge Instructions Thank you for allowing [facility] to assist you with your healthcare needs. The following is importantdischarge information regarding your hospital visit. Diagnosis from Today's Visit Rib contusion Rib/trunk pain-swelling What to Do Next Instructions from Your Care Team No qualifying data available. Post Acute Orders No qualifying data available. You Need to Schedule the Following Appointments Follow Up with Call Physician Referral When Within 2-4 days Allergies NKA Medications Please ask your primary doctor or pharmacist before taking any other medication not listed, including over the counter drugs, herbal medications, vitamins and or supplements as they may interact withyour home medications. What How Much When Why Instructions Last Dose New acetaminophen-hydrocodone ([place] 325- 5 mg oral tablet) 1 tab(s) by mouth Every 6 hours as needed for for pain Rib contusion Duration: 5 Days Printed Prescription Unchanged nabumetone (nabumetone 500 mg oral tablet) 2 tab(s) by mouth Two (2) times a day Duration: 7 Days Please take this list to your next doctor s visit. Bring all medications you take, including over the counter medications, herbals and other supplements with you to your doctor s visit. Patients and families are reminded to discard old lists and to update any records with all medication providers or retail pharmacies. Medication Leaflets acetaminophen and hydrocodone (a SEET a MIN oh fen and abihnav CHENG done) Lortab Elixir, Verdrocet What is the most important information I should know about acetaminophen and hydrocodone? MISUSE OF OPIOID MEDICINE CAN CAUSE ADDICTION, OVERDOSE, OR . Keep the medication in a place where others cannot get to it. Taking opioid medicine during may cause life-threatening withdrawal symptoms in the . Fatal side effects can occur if you use opioid medicine with alcohol, or with other drugs that cause drowsiness or slow your breathing. Stop taking this medicine and call your doctor right away if you have skin redness or a rash that spreads and causes blistering and peeling. What is acetaminophen and hydrocodone? Acetaminophen and hydrocodone is a combination medicine used to relieve moderate to severe pain. Acetaminophen and hydrocodone contains an opioid medicine, and may be habit-forming. Acetaminophen and hydrocodone may also be used for purposes not listed in this medication guide. What should I discuss with my healthcare provider before taking acetaminophen and hydrocodone? You should not use this medicine if you are allergic to acetaminophen or hydrocodone, or if you have: severe asthma or breathing problems; or a blockage in your stomach or intestines. Tell your doctor if you have ever had: breathing problems, sleep apnea (breathing stops during sleep); liver disease; a drug or alcohol addiction; kidney disease; a head injury or seizures; urination problems; or problems with your thyroid, pancreas, or gallbladder. If you use opioid medicine while you are , your baby could become dependent on the drug. This can cause life-threatening withdrawal symptoms in the baby after it is born. Babies born dependent on opioids may need medical treatment for several weeks. Ask a doctor before using opioid medicine if you are . Tell your doctor if you notice severe drowsiness or slow breathing in the nursing baby. How should I take acetaminophen and hydrocodone? Follow all directions on your prescription label. Never take this medicine in larger amounts, or for longer than prescribed. An overdose can damage your liver or cause . Tell your doctor if you feel an increased urge to use more of this medicine. Never share this medicine with another person, especially someone with a history of drug abuse or addiction. MISUSE CAN CAUSE ADDICTION, OVERDOSE, OR . Keep the medicine in a place where others cannot get to it. Selling or giving away this medicine is against the law. Measure liquid medicine carefully. Use the dosing syringe provided, or use a medicine dose-measuring device (not a kitchen spoon). If you need surgery or medical tests, tell the doctor ahead of time that you are using this medicine. You should not stop using this medicine suddenly. Follow your doctor's instructions about tapering your dose. Store at room temperature away from moisture and heat. Keep track of your medicine. You should be aware if anyone is using it improperly or without a prescription. Do not keep leftover opioid medication. Just one dose can cause in someone using this medicine accidentally or improperly. Ask your pharmacist where to locate a drug take-back disposal program.If there is no take-back program, flush the unused medicine down the toilet. What happens if I miss a dose? Since this medicine is used for pain, you are not likely to miss a dose. Skip any missed dose if itis almost time for your next dose. Do not use two doses at one time. What happens if I overdose? Seek emergency medical attention or call the Poison Help line at . An overdose of this medicine can be fatal, especially in a child or other person using the medicine without a prescription. Overdose symptoms may include nausea, vomiting, sweating, severe drowsiness, pinpoint pupils, slow breathing, or no breathing. Your doctor may recommend you get naloxone (a medicine to reverse an opioid overdose) and keep it with you at all times. A person caring for you can give the naloxone if you stop breathing or don't wake up. Your caregiver must still get emergency medical help and may need to perform CPR (cardiopulmonary resuscitation) on you while waiting for help to arrive. Anyone can buy naloxone from a pharmacy or local health department. Make sure any person caring foryou knows where you keep naloxone and how to use it. What should I avoid while taking acetaminophen and hydrocodone? Avoid driving or operating machinery until you know how this medicine will affect you. Dizziness ordrowsiness can cause falls, accidents, or severe injuries. Do not drink alcohol. Dangerous side effects or could occur. Ask a doctor or pharmacist before using any other medicine that may contain acetaminophen (sometimes abbreviated as APAP). Taking certain medications together can lead to a fatal overdose. What are the possible side effects of acetaminophen and hydrocodone? Get emergency medical help if you have signs of an allergic reaction: hives; difficulty breathing; swelling of your face, lips, tongue, or throat. Opioid medicine can slow or stop your breathing, and may occur. A person caring for you should give naloxone and/or seek emergency medical attention if you have slow breathing with long pauses,blue colored lips, or if you are hard to wake up. In rare cases, acetaminophen may cause a severe skin reaction that can be fatal. This could occur even if you have taken acetaminophen in the past and had no reaction. Stop taking this medicine and call your doctor right away if you have skin redness or a rash that spreads and causes blistering andpeeling. Call your doctor at once if you have: noisy breathing, sighing, shallow breathing, breathing that stops; a light-headed feeling, like you might pass out; liver problems--nausea, upper stomach pain, tiredness, loss of appetite, dark urine, aaron-colored stools, jaundice (yellowing of the skin or eyes); low cortisol levels-- nausea, vomiting, loss of appetite, dizziness, worsening tiredness or weakness; o high levels of serotonin in the body--agitation, hallucinations, fever, sweating, shivering, fast heart rate, muscle stiffness, twitching, loss of coordination, nausea, vomiting, diarrhea. Serious breathing problems may be more likely in older adults and in those who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 for apnea, choking and chest tightness. Cardiovascular: Negative for chest pain, palpitations and leg swelling. Gastrointestinal: Positive for abdominal pain and flatus. Negative for anorexia, constipation, diarrhea, hematochezia, melena, nausea and vomiting. Genitourinary: Negative for dysuria, frequency and hematuria. Musculoskeletal: Negative for arthralgias and myalgias. Allergic/Immunologic: Negative for environmental allergies, food allergies and immunocompromised state. Neurological: Negative for headaches. Hematological: Negative for adenopathy. Does not bruise/bleed easily. Objective BP 135/85 Pulse 73 Temp 36.7 C (98.1 F) Resp 18 Wt 50.3 kg (110 lb 12.8 oz) LMP 10/23/2022 SpO2 100% BMI 19.02 kg/m Physical Exam Vitals and nursing note reviewed. Constitutional: General: She is not in acute distress. Appearance: Normal appearance. She is normal weight. She is not ill-appearing, toxic-appearing or diaphoretic. HENT: Head: Normocephalic and atraumatic. Right Ear: Ear canal and external ear normal. Left Ear: Ear canal and external ear normal. Nose: Nose normal. No congestion or rhinorrhea. Mouth/Throat: Mouth: Mucous membranes are moist. Pharynx: No oropharyngeal exudate or posterior oropharyngeal erythema. Eyes: General: Right eye: No discharge. Left eye: No discharge. Extraocular Movements: Extraocular movements intact. Conjunctiva/sclera: Conjunctivae normal. Pupils: Pupils are equal, round, and reactive to light. Cardiovascular: Rate and Rhythm: Normal rate and regular rhythm. Pulses: Normal pulses. Heart sounds: Normal heart sounds. No murmur heard. No friction rub. Pulmonary: Effort: Pulmonary effort is normal. No respiratory distress. Breath sounds: Normal breath sounds. No stridor. No wheezing, rhonchi or rales. Chest: Chest wall: No tenderness. Abdominal: General: Abdomen is flat. There is no distension. Palpations: Abdomen is soft. There is no mass. Tenderness: There is abdominal tenderness (periumbilical). There is no right CVA tenderness, left CVA tenderness, guarding or rebound. Hernia: No hernia is present. Musculoskeletal: General: No swelling, tenderness, deformity or signs of injury. Normal range of motion. Cervical back: Normal range of motion and neck supple. No rigidity. Right lower leg: No edema. Left lower leg: No edema. Lymphadenopathy: Cervical: No cervical adenopathy. Skin: General: Skin is warm and dry. Coloration: Skin is not jaundiced or pale. Findings: No bruising, erythema, lesion or rash. Neurological: General: No focal deficit present. Mental Status: She is alert and oriented to person, place, and time. Cranial Nerves: No cranial nerve deficit. Sensory: No sensory deficit. Motor: No weakness. Coordination: Coordination normal. Gait: Gait normal. Psychiatric: Mood and Affect: Mood normal. Behavior: Behavior normal. Thought Content: Thought content normal. Judgment: Judgment normal. Assessment and Plan ASSESSMENT/PLAN: 1. Periumbilical abdominal pain - ICD9: 789.05, ICD10: R10.33 Etiology unclear Differential Diagnosis includes Appendicitis, Mesenteric ischemia. - Referred to ED States she will not be going related to having her children and boyfriend here She requests work noted. Provided. Latricia Grissom APRN.VARGAS Grissom APRN.VARGAS documented in this encounterUniversity [facility]06-02-2023 Miscellaneous Notes* Telephone Encounter - Catia Flores - 01/19/2023 10:30 AM EDT No Show Documentation Bowen Jones no showed for an appointment on 01/19/23 with Michelle Bashir APRN.CUSTODIAL SERVICES MANAGER at 9:20 am. She was scheduled for neck and shoulder pain. I called and spoke with the patient regarding her missed appointment. Bowen stated the reason that she missed her appointment was because she missed her alarm . Resources discussed/offered to patient: reschedule appointment. No show determined to be fault of patient: Yes This is the patients second no show in the last 12 months. Patient was rescheduled for January 25 at 4:00 pm.. Letter mailed : Yes Is this the Third or Fourth No Show? No Catia Flores January 19, 2023 10:30 AM documented in this encounterUniversity Hospitals [facility]05-13-2023 Hospital Discharge instructions Patient Education 12/30/2022 09:30:56 Neck Sprain or Strain Neck Sprain or Strain A sudden force that causes turning or bending of the neck can cause sprain or strain. An example would be the force from a car accident. This can stretch or tear muscles called a strain. It can also stretch or tear ligaments called a sprain. Either of these can cause neck pain. Sometimes neck pain occurs after a simple awkward movement. In either case, muscle spasm is commonly present and contributes to the pain. Unless you had a forceful physical injury (for example, a car accident or fall), X-rays are often not ordered for the initial evaluation of neck pain. If pain continues and does not respond to medical treatment, X-rays and other tests may be done later. Home care You may feel more soreness and spasm the first few days after the injury. Rest until symptoms startto improve. When lying down, use a comfortable pillow or a rolled towel that supports the head and keeps the spine in a neutral position. The position of the head should not be tilted forward or backward. Apply an ice pack over the injured area for 15 to 20 minutes every 3 to 6 hours. Do this for the first 24 to 48 hours. You can make an ice pack by filling a plastic bag that seals at the top with icecubes and then wrapping it with a thin towel. After 48 hours, apply heat (warm shower or warm bath)for 15 to 20 minutes several times a day, or alternate ice and heat. You may use cafw-azn-noixzxs pain medicine to control pain, unless another pain medicine was prescribed. If you have chronic liver or kidney disease or ever had a stomach ulcer or gastrointestinal bleeding, talk with your healthcare provider before using these medicines. If a soft cervical collar was prescribed, only ear it for periods of increased pain. It should not be worn for more than 3 hours a day, or for longer than 1 to 2 weeks. Follow-up care Follow up with your healthcare provider, or as directed. Physical therapy may be needed. Sometimes fractures don t show up on the first X-ray. Bruises and sprains can sometimes hurt as much as a fracture. These injuries can take time to heal completely. If your symptoms don t improve or they get worse, talk with your healthcare provider. You may need a repeat X-ray or other tests. If X-rays were taken, you will be told of any new findings that may affect your care. Call 911 Call 911 if you have: Neck swelling, difficulty or painful swallowing Trouble breathing Chest pain When to seek medical advice Call your healthcare provider right away if any of these occur: Pain becomes worse or spreads into your arms or legs Weakness or numbness in one or both arms or legs 6618-7501 [employer]. [address] [place] [address]. All rights reserved. This information is not intended as a substitute for professional medical care. Always follow yourhealthcare professional's instructions. Follow Up Care 12/30/2022 09:22:10 With:Follow up with primary care provider Address:Unknown When:2-4 days [facility] 05-13-2023 Note Discharge Instructions Thank you for allowing [facility] to assist you with your healthcare needs. The following is importantdischarge information regarding your hospital visit. Diagnosis from Today's Visit Neck pain What to Do Next Instructions from Your Care Team Discharge Return to Work, School, or Sports (Return to Work, School, or Sports) - Ordered -- 01/01/23, May return to: work, 12/30/22 9:30:00 EDT Discharge Return to Work, School, or Sports (Return to Work, School, or Sports) - Ordered -- May return to: work, of patient, 12/30/22 9:31:00 EDT Post Acute Orders No qualifying data available. You Need to Schedule the Following Appointments Follow Up with Follow up with primary care provider When Within 2-4 days Allergies NKA Medications Please ask your primary doctor or pharmacist before taking any other medication not listed, including over the counter drugs, herbal medications, vitamins and or supplements as they may interact withyour home medications. What How Much When Instructions Last Dose New cyclobenzaprine (cyclobenzaprine 10 mg oral tablet) 1 tab(s) by mouth Three (3) times a day Duration: 5 Days Printed Prescription New nabumetone (nabumetone 500 mg oral tablet) 2 tab(s) by mouth Two (2) times a day Duration: 7 Days Printed Prescription Please take this list to your next doctor s visit. Bring all medications you take, including over the counter medications, herbals and other supplements with you to your doctor s visit. Patients and families are reminded to discard old lists and to update any records with all medication providers or retail pharmacies. Education Materials Neck Sprain or Strain A sudden force that causes turning or bending of the neck can cause sprain or strain. An example would be the force from a car accident. This can stretch or tear muscles called a strain. It can also stretch or tear ligaments called a sprain. Either of these can cause neck pain. Sometimes neck pain occurs after a simple awkward movement. In either case, muscle spasm is commonly present and contributes to the pain. Unless you had a forceful physical injury (for example, a car accident or fall), X-rays are often not ordered for the initial evaluation of neck pain. If pain continues and does not respond to medical treatment, X-rays and other tests may be done later. Home care You may feel more soreness and spasm the first few days after the injury. Rest until symptoms startto improve. When lying down, use a comfortable pillow or a rolled towel that supports the head and keeps the spine in a neutral position. The position of the head should not be tilted forward or backward. Apply an ice pack over the injured area for 15 to 20 minutes every 3 to 6 hours. Do this for the first 24 to 48 hours. You can make an ice pack by filling a plastic bag that seals at the top with icecubes and then wrapping it with a thin towel. After 48 hours, apply heat (warm shower or warm bath)for 15 to 20 minutes several times a day, or alternate ice and heat. You may use ktla-ilg-wohpkle pain medicine to control pain, unless another pain medicine was prescribed. If you have chronic liver or kidney disease or ever had a stomach ulcer or gastrointestinal bleeding, talk with your healthcare provider before using these medicines. If a soft cervical collar was prescribed, only ear it for periods of increased pain. It should not be worn for more than 3 hours a day, or for longer than 1 to 2 weeks. Follow-up care Follow up with your healthcare provider, or as directed. Physical therapy may be needed. Sometimes fractures don t show up on the first X-ray. Bruises and sprains can sometimes hurt as much as a fracture. These injuries can take time to heal completely. If your symptoms don t improve or they get worse, talk with your healthcare provider. You may need a repeat X-ray or other tests. If X-rays were taken, you will be told of any new findings that may affect your care. Call 911 Call 911 if you have: Neck swelling, difficulty or painful swallowing Trouble breathing Chest pain When to seek medical advice Call your healthcare provider right away if any of these occur: Pain becomes worse or spreads into your arms or legs Weakness or numbness in one or both arms or legs 8818-5651 [employer]. [address] [place] [address]. All rights reserved. This information is not intended as a substitute for professional medical care. Always follow yourhealthcare professional's instructions. Additional Information VACCINATE! IT SAVES LIVES! Members of the community who have not yet received the COVID-19 vaccine and would like to receive it can visit one of [facility] vaccine clinics. There are many vaccine clinic locations within the [facility]. For locations and available times, please visit www.gettheshot.coronavirus.[place].gov/. It is important to note that some COVID mobile vaccine clinics are held outdoors and may be canceled in rainy or stormy conditions. To learn more about pediatric vaccinations (ages 5-11), we invite you to visit the [facility] webpage. https://www.[facility].org/pages/3460-Lzrbx-Xgfhnwprsbs-Csfhzywjcm-Jfcfz-Dju stions.htmlTo learn more about the COVID-19 vaccine, we invite you to visit the CDC website for a list of frequently asked questions. https://www.cdc.gov/coronavirus/2019-ncov/vaccines/faq.html [facility] Patient Portal Access Instructions: Stay connected with your healthcare team and access your personal medical information anytime with the [facility] Patient Portal. If you would like a full copy of your medical records please contact the [facility] Medical Records Department Sunday through Sunday between 8a.m. and 4:30p.m. Please follow the directions below to access the portal: 1.Access the email account you provided upon registration to the [facility].2.Look for an invitation email from [facility].3.Open the email and access the invitation link: Accept Invitation to [facility]4.Fill in the required greene to create your account. Sign into www.[employer] with your username and password that you created in the above steps to stay up to date. You can then view a summary of results, a summary of your visits, and the ability to download your summaries to your computer or send the information securely to a physician. Remember that your healthcare information is confidential, so carefully consider who you will allow to register on the [facility] Patient Portal for access to your information. You can also access the [facility] Patient Portal on the Home-Account. Simply click on Health Records under HealthData and then click on the [employer] logo. HOW TO SAFELY DISPOSE OF PRESCRIPTION MEDICATIONS Please use one of the following methods to safely dispose of your unused medications. 1.Use a drug disposal kit: the drug disposal pouch allows you to safely discard your old and unuseddrugs. Ask your nurse to give you one when you are discharged.2.Visit a local take-back location: Many local pharmacies and police departments have programs that collect old and unwanted prescriptiondrugs. Call your local pharmacy or go to http://bit.Giggzo/9W2Cv9f to find one close to you.3.Make use of household items: Use cat litter or old coffee grounds to dispose medications if other options arenot available. Mix your drugs with these household products, seal them in an airtight container andthrow it into the garbage. Call [facility]: [phone] to be sure your drugs can be disposed of in this way. Some medicines may require a different approach.4.Never flush your medications down the toilet. IF YOU HAVE BEEN PRESCRIBED AN OPIOIDS FOR PAIN If you have been prescribed an opioid (such as hydrocodone, oxycodone or morphine), it is critical to understand the possible side effects and risks of opioid pain medications. Even when taken as directed, opioids can have several side effects including: Tolerance, meaning you might need to take more of a medication for the same pain relief. Nausea, vomiting and/or constipation. Sleepiness, dizziness, dry mouth, confusion, depression or itching. Physical dependence, meaning you have withdrawal symptoms when a medication is stopped ? this can develop within a few days. KNOW YOUR RESPONSIBILITIES It is important to know exactly how much and how often to take the opioid pain medications you are prescribed. Never take opioids in higher amounts or more often than prescribed. Do not combine opioids with alcohol or other drugs that cause drowsiness, such as benzodiazepines, also known as benzos,including diazepam and alprazolam, muscle relaxants or sleep aids. Never sell or share prescriptionopioids. This is illegal. Store opioids in a secure place and out of reach of others (including children, family, friends and visitors). The last page(s) of this document has been signed and retained as a CHART COPY Signatures Patient Education Materials Neck Sprain or Strain Medication Leaflets My discharge plan and instructions have been reviewed and explained to me and I,BOWEN JONES understand my current condition and have read and understand these discharge instructions. I have received a written copy of the plan/instructions. If I have questions, I am aware that I should contactmy doctor. Patient/Bend Up Signature: Date/Time: Relationship to Patient: Witness Name/Signature: Date/Time: [facility]05-04-2023 History of Present illness Narrative * Vitalylina Jonas, PT - 12/21/2022 2:57 PM EDT Episode Visit Count: 7 Therapist That Will Accept/Oversee The Plan Of Care: Vitaly Jonas PT Start of Care Date: 10/17/22 Onset Date: 08/20/22 Plan of Care Certification Date: 12/01/22 Next Certification Due Date: 12/29/22 Patient Identified by Name and Date of : Yes REHABILITATION AND SPORTS THERAPY PHYSICAL THERAPY TREATMENT NOTE ASSESSMENT: Bowen Jones tolerated the session with decreased symptoms. She demonstrated slightimprovements in pain following treatment today. The patient will continue to benefit from ongoing skilled physical therapy to progress toward set goals. PLAN FOR NEXT VISIT: Continue therex progressing to tolerance and continue manual therapy, especially sub-occipital release. SUBJECTIVE: Patient Reason for Visit: Pt reports that since Sunday she has had a significant increase in pain in L shoulder. She reports compliance with HEP day and that she has been working hard on improving her postural alignment. She wonders if it was therex in PT because she pushed too hard.She also reports straining her L shoulder lifting a mop at work on Sunday and this required an ED visit. She reports being given a sling but she is not wearing it. She later attributed her pain to the strain that occured with lifting the mop at work. Pain: Pain Pain Level: (7-8/10) Pain Location: Shoulder - Left Description: Aching, Sharp Frequency: Continuous Post Treatment Pain Post Treatment Pain Level: Better (6-7/10 after) Post Treatment Pain Location: Shoulder - Left Post Treatment Pain Description: (less pressure) Post Treatment Symptoms: Pt denied any increase in pain with therex and reported subtle benefit from manual therapy. She especially reported relief with sub- occipital release. OBJECTIVE MEASURES WITH LEVEL OF FUNCTION: Shoulder Observations L Shoulder Palpation Tenderness: (throughout) Spine Observations L Cervical Spine Palpation Tenderness: Upper trapezius, Levator scapulae TREATMENT: Therapeutic Exercise: 1: [employer] StepOne seat #8 x6 minutes (Pt provided an update on her condition and changes since lastsession 12/08/22.) 2: seated L UT stretch 3x30 seconds 3: seated L levator scapulae stretch 3x30 seconds 4: corner pectoral stretch 3x30 seconds 6: seated B shoulder flexion AAROM with rope and judd in pain-free range 2x10 7: seated B shoulder abduction AAROM with rope and judd in pain-free range 2x10 Skilled Intervention: Patient was educated in proper exercise technique and purpose for exercises. Skilled judgment was provided in selection of appropriate interventions. Correct performance of therapeutic exercises was facilitated with verbal, visual, and tactile cuing. Patient education as noted. Manual Therapy: 1: GENTLE massage and very light trigger point release to B cervical paraspinals, UT muscles, L shoulder and levator scapulae muscles. Sub-occipital release done and helpful according to patient. Total time with manual therapy was 10 minutes with pt supine Skilled Intervention: Manual skills to improve joint mobility, ROM, and decrease pain. Utilized anatomy knowledge of the therapist, and assessment of patient's response to intervention. Billing Therapeutic Exercise Treatment Minutes: 30 Manual TherapyTreatment Minutes: 10 Total Treatment Time Minutes (timed/untimed): 40 Vitaly Jonas PT documented in this encounterUniversity [facility]als [facility]05-03-2023 History of Present illness Narrative* Jonathan Stover MA - 12/20/2022 9:56 AM EDT ED Follow Up: Patient discharged from [facility] ED on 12/18/22. 1. How are you feeling since your ED visit? Tried to call patient, no answer and no voicemail. Have your symptoms improved or resolved? Not applicable 2. Were you prescribed any medications while in the ED or advised to stop any medication? Not applicable - If yes, were you able to fill your prescriptions? Not applicable -if stopped medication, what was the medication? N/A 3. Were you advised to schedule a follow up appointment with your provider? Not applicable - If no, Do you feel like you need an appointment scheduled? Not applicable - If yes, Do you need this scheduled now or has this already been scheduled? Not applicable 4. Were you able to contact the office or financial operations clerk provider prior to your ED visit? Not applicable 5. Is there anything else I can do for you today? Not applicable Jonathan Stover MA documented in this encounter[facility] Hospital Discharge instructions Patient Education 12/18/2022 18:20:16 Exercises at Your Workstation: Shoulders Exercises at Your Workstation: Shoulders Tight shoulders? Aching back? A few easy moves can help your shoulders and back feel better. Take afew minutes during your day to do these exercises, right at your desk. They'll loosen up your muscles, keep you more alert, and make a big difference in how you work and feel. Breathe deeply as you do your exercises. Inhale through your nose, and exhale through your mouth. For your shoulders Warm-up Drop your head gently to your chest. While breathing in, slowly roll your head up to your left shoulder. While breathing out, slowly roll your head back to center. Repeat to the right. Repeat 3 times on each side. Shoulder raise Slowly raise your shoulders toward your ears. Hold for a few seconds. Slowly bring your shoulders down and relax. Repeat 3 times. Back press Put your hands up, forearms raised. Push your arms back, squeezing your shoulder blades. Hold for a few seconds, then relax. Repeat 3 times. If you feel pain while doing these stretching exercises, please stop and consult your healthcare provider. 4042-5830 [employer]. [address] [place] [address]. All rights reserved. This information is not intended as a substitute for professional medical care. Always follow yourhealthcare professional's instructions. Follow Up Care 12/18/2022 18:08:42 With:KHANH NICHOLS DO, Orthopedic Address: [address] [place] [address], [address] [place] [address]- [phone] When:2-4 days With:Go to emergency room if symptoms worsen Address:Unknown When:2-4 days With:Follow up with primary care provider Address:Unknown When:2-4 days [facility] 05-01-2023 Emergency department Discharge summary Discharge Instructions Thank you for allowing [facility] to assist you with your healthcare needs. The following is importantdischarge information regarding your hospital visit. Diagnosis from Today's Visit Shoulder pain Shoulder pain-swelling What to Do Next Instructions from Your Care Team No qualifying data available. Post Acute Orders No qualifying data available. You Need to Schedule the Following Appointments Follow Up with KHANH NICHOLS DO, Orthopedic When Within 2-4 days Where: [address] [place] [address], [address] [place] [phone] Follow Up with Go to emergency room if symptoms worsen When Within 2-4 days Follow Up with Follow up with primary care provider When Within 2-4 days Allergies NKA Medications Please ask your primary doctor or pharmacist before taking any other medication not listed, including over the counter drugs, herbal medications, vitamins and or supplements as they may interact withyour home medications. Please take this list to your next doctor s visit. Bring all medications you take, including over the counter medications, herbals and other supplements with you to your doctor s visit. Patients and families are reminded to discard old lists and to update any records with all medication providers or retail pharmacies. Education Materials Exercises at Your Workstation: Shoulders Tight shoulders? Aching back? A few easy moves can help your shoulders and back feel better. Take afew minutes during your day to do these exercises, right at your desk. They'll loosen up your muscles, keep you more alert, and make a big difference in how you work and feel. Breathe deeply as you do your exercises. Inhale through your nose, and exhale through your mouth. For your shoulders Warm-up Drop your head gently to your chest. While breathing in, slowly roll your head up to your left shoulder. While breathing out, slowly roll your head back to center. Repeat to the right. Repeat 3 times on each side. Shoulder raise Slowly raise your shoulders toward your ears. Hold for a few seconds. Slowly bring your shoulders down and relax. Repeat 3 times. Back press Put your hands up, forearms raised. Push your arms back, squeezing your shoulder blades. Hold for a few seconds, then relax. Repeat 3 times. If you feel pain while doing these stretching exercises, please stop and consult your healthcare provider. 7504-1056 [employer]. [address] [place] [address], [place] [address]. All rights reserved. This information is not intended as a substitute for professional medical care. Always follow yourhealthcare professional's instructions. Additional Information VACCINATE! IT SAVES LIVES! Members of the community who have not yet received the COVID-19 vaccine and would like to receive it can visit one of [facility] vaccine clinics. There are many vaccine clinic locations within the [facility]. For locations and available times, please visit www.gettheshot.coronavirus.[place].gov/. It is important to note that some COVID mobile vaccine clinics are held outdoors and may be canceled in rainy or stormy conditions. To learn more about pediatric vaccinations (ages 5-11), we invite you to visit the [facility] webpage. [email or web address]/[email or web address] [email or web address] learn more about the COVID-19 vaccine, we invite you to visit the CDC website for a list of frequently asked questions. https://www.cdc.gov/coronavirus/2019-ncov/vaccines/faq.html [facility] Patient Portal Access Instructions: Stay connected with your healthcare team and access your personal medical information anytime with the [facility] Patient Portal. If you would like a full copy of your medical records please contact the [facility] Medical Records Department Sunday through Sunday between 8a.m. and 4:30p.m. Please follow the directions below to access the portal: 1.Access the email account you provided upon registration to the hospital.2.Look for an invitation email from [facility].3.Open the email and access the invitation link: Accept Invitation to [facility]4.Fill in the required greene to create your account. Sign into [email or web address].[employer] with your username and password that you created in the above steps to stay up to date. You can then view a summary of results, a summary of your visits, and the ability to download your summaries to your computer or send the information securely to a physician. Remember that your healthcare information is confidential, so carefully consider who you will allow to register on the [facility] Patient Portal for access to your information. You can also access the [facility] Patient Portal on the Home-Account. Simply click on Health Records under [employer] and then click on the [employer] logo. HOW TO SAFELY DISPOSE OF PRESCRIPTION MEDICATIONS Please use one of the following methods to safely dispose of your unused medications. 1.Use a drug disposal kit: the drug disposal pouch allows you to safely discard your old and unuseddrugs. Ask your nurse to give you one when you are discharged.2.Visit a local take-back location: Many local pharmacies and police departments have programs that collect old and unwanted prescriptiondrugs. Call your local pharmacy or go to http://[employer].Giggzo/4X5Wc9z to find one close to you.3.Make use of household items: Use cat litter or old coffee grounds to dispose medications if other options arenot available. Mix your drugs with these household products, seal them in an airtight container andthrow it into the garbage. Call [facility]: [phone] to be sure your drugs can be disposed of in this way. Some medicines may require a different approach.4.Never flush your medications down the toilet. IF YOU HAVE BEEN PRESCRIBED AN OPIOIDS FOR PAIN If you have been prescribed an opioid (such as hydrocodone, oxycodone or morphine), it is critical to understand the possible side effects and risks of opioid pain medications. Even when taken as directed, opioids can have several side effects including: Tolerance, meaning you might need to take more of a medication for the same pain relief. Nausea, vomiting and/or constipation. Sleepiness, dizziness, dry mouth, confusion, depression or itching. Physical dependence, meaning you have withdrawal symptoms when a medication is stopped ? this can develop within a few days. KNOW YOUR RESPONSIBILITIES It is important to know exactly how much and how often to take the opioid pain medications you are prescribed. Never take opioids in higher amounts or more often than prescribed. Do not combine opioids with alcohol or other drugs that cause drowsiness, such as benzodiazepines, also known as benzos,including diazepam and alprazolam, muscle relaxants or sleep aids. Never sell or share prescriptionopioids. This is illegal. Store opioids in a secure place and out of reach of others (including children, family, friends and visitors). The last page(s) of this document has been signed and retained as a CHART COPY Signatures Patient Education Materials Exercises at Your Workstation: Shoulders Medication Leaflets My discharge plan and instructions have been reviewed and explained to me and I,BOWEN JONES understand my current condition and have read and understand these discharge instructions. I have received a written copy of the plan/instructions. If I have questions, I am aware that I should contactmy doctor. Patient/Bend Up Signature: Date/Time: Relationship to Patient: Witness Name/Signature: Date/Time: [facility]05-01-2023 Note ORIGINAL EXAMINATION: TWO XRAY VIEWS OF THE LEFT SHOULDER 12/18/2022 6:32 pm COMPARISON: None. HISTORY: ORDERING SYSTEM PROVIDED HISTORY: Reason for Exam: pain FINDINGS: Glenohumeral joint is normally aligned. No evidence of acute fracture or dislocation. No abnormal periarticular calcifications. The AC joint is unremarkable in appearance. Visualized lung is unremarkable. IMPRESSION: No acute abnormality. RECOMMENDATIONS: Unavailable Interpreted by: Zane Dee Preliminary Report By: Zane Dee Electronically signed By Zane Dee Dictated Date: 12/18/2022 6:39:57 PM Prelim Date: 12/18/2022 6:40:22 PM Sign Date: 12/18/2022 6:40:22 PM [facility] ORIGINAL EXAMINATION: TWO XRAY VIEWS OF THE LEFT SHOULDER 12/18/2022 6:32 pm COMPARISON: None. HISTORY: ORDERING SYSTEM PROVIDED HISTORY: Reason for Exam: pain FINDINGS: Glenohumeral joint is normally aligned. No evidence of acute fracture or dislocation. No abnormal periarticular calcifications. The AC joint is unremarkable in appearance. Visualized lung is unremarkable. IMPRESSION: No acute abnormality. RECOMMENDATIONS: Unavailable Interpreted by: Zane Dee Preliminary Report By: Zane Dee Electronically signed By Zane Dee Dictated Date: 12/18/2022 6:39:57 PM Prelim Date: 12/18/2022 6:40:22 PM Sign Date: 12/18/2022 6:40:22 PM Ordering Provider: [facility]05-01-2023 History of Present illness Narrative* Vitaly Jonas, PT - 12/18/2022 10:27 AM EDT Episode Visit Count: 6 Therapist That Will Accept/Oversee The Plan Of Care: Vitaly Jonas PT Start of Care Date: 10/17/22 Onset Date: 08/20/22 Plan of Care Certification Date: 12/01/22 Next Certification Due Date: 12/29/22 Patient Identified by Name and Date of : Yes REHABILITATION AND SPORTS THERAPY PHYSICAL THERAPY TREATMENT NOTE ASSESSMENT: Bowen Jones tolerated the session with decreased symptoms. She demonstrated improvements in postural awareness, understanding of neuroscience of pain, exercise tolerance and pain. The patient will continue to benefit from ongoing skilled physical therapy to progress toward set goals. PLAN FOR NEXT VISIT: Continue PNE and active therex for postural stretching and strengthening. Consider more postural strengthening for HEP, maybe theraband. Resume manual therapy prn pending patient wishes. SUBJECTIVE: Patient Reason for Visit: Pt reports that overall she is better since last session. Shereports less scapular and neck pain but increased L shoulder pain. She reports compliance wtih HEP 1x day but not everyday. She reports that her neck feels touchy and she would like to defer manualtherapy in favor of PNE. She reports increased postural awareness and that she is working on this diligently. She attributes her improvements partially to her postural correction. She reports that spasms still occur with the same intensity but just a lot less frequent. Pain: Pain Pain Level: (6-02/26) Pain Location: Shoulder - Left Description: Sharp, Aching Frequency: Intermittent Post Treatment Pain Post Treatment Pain Level: Better Post Treatment Symptoms: After treatment, pt reported feeling better with pain decreased by a number. No increase in pain reported. OBJECTIVE MEASURES WITH LEVEL OF FUNCTION: TREATMENT: Therapeutic Exercise: 1: SciFit StepOne seat #8 x6 minutes (Pt provided an update on her condition and changes since lastsession 12/08/22.) 2: seated L UT stretch 3x30 seconds 3: seated L levator scapulae stretch 3x30 seconds 4: corner pectoral stretch 3x30 seconds 5: seated active scapular retraction with yellow t-band avoiding shrugging 2x15 6: seated B shoulder flexion AAROM with rope and judd in pain-free range 2x10 7: seated B shoulder abduction AAROM with rope and judd in pain-free range 2x10 8: B UE alphabet tracing A-Z B x1 each, no weight Skilled Intervention: Patient was educated in proper exercise technique and purpose for exercises. Skilled judgment was provided in selection of appropriate interventions. Correct performance of therapeutic exercises was facilitated with verbal, visual, and tactile cuing. Patient education as noted. Neuromuscular Re-Education: Nerve Sensors: Patient educated on the concept of neuroplasticity, and how factors such as temperature, stress, movement, immunity and blood flow affect pain via ion channel expression. Instruction provided regarding homeostasis/ion channel balance disruption may occur based on what your brain thinks is needed for survival. Homework: Patient encouraged to review/diagram nerve sensitivity topics discussed today to promote deep learning. Spreading Pain (Nosy neighbors): Patient educated regarding spreading pain symptoms, and that feeling pain in adjacent areas of the body does not indicate definite tissue injury. Hyperalgesia, immune responses and central sensitization topics were introduced using metaphors to promote deep learning. Homework: Patient encouraged to discuss with a trusted support person the concept of spreading pain, using nosy neighbor metaphor, to reinforce learning. Skilled Intervention: Patient education as noted. Billing Therapeutic Exercise Treatment Minutes: 35 Neuromuscular Re-Education Treatment Minutes: 10 Total Treatment Time Minutes (timed/untimed): 45 Vitaly Jonas PT documented in this encounterUniversity [facility]04-[facility]23 History of Present illness Narrative* Vitaly Jonas PT - 12/06/2022 2:19 PM EDT Episode Visit Count: 4 Therapist That Will Accept/Oversee The Plan Of Care: Vitaly Jonas PT Start of Care Date: 10/17/22 Onset Date: 08/20/22 Plan of Care Certification Date: 12/01/22 Next Certification Due Date: 12/29/22 Patient Identified by Name and Date of : Yes REHABILITATION AND SPORTS THERAPY PHYSICAL THERAPY TREATMENT NOTE ASSESSMENT: Bowen Jones tolerated the session with fatigue, decreased symptoms, and expected muscle soreness. She demonstrated improvements in flexibility with stretching of the neck . The patient will continue to benefit from ongoing skilled physical therapy to progress toward set goals. PLAN FOR NEXT VISIT: Consider additional PNE cards. Continue with manual cervical retraction and gentle massage. SUBJECTIVE: Patient Reason for Visit: Pt reports that she is still sore from last session, but feeling decent today. Pt states still having spasms, but they have decreased in frequency. Pt late this appointment. Pain: Pain Pain Level: 6 Pain Location: Scapula - Left, Shoulder - Left, Neck - Left Description: Aching, Stabbing, Spasm Post Treatment Pain Post Treatment Pain Level: Better OBJECTIVE MEASURES WITH LEVEL OF FUNCTION: Increased motion noted when looking right with repeated cervical rotation. TREATMENT: Therapeutic Exercise: 1: seated cervical spine rotation B 2x10 (more motion to the R, pulls on L side when looking left per pt.) 2: seated L UT stretch 3x30 seconds 3: seated L levator scapulae stretch 3x30 seconds 4: corner pectoral stretch 3x30 seconds 5: seated active scapular retraction in front of mirror to avoid shrugging 2x10 Skilled Intervention: Patient was educated in proper exercise technique and purpose for exercises. Skilled judgment was provided in selection of appropriate interventions. Correct performance of therapeutic exercises was facilitated with verbal and visual cuing. Manual Therapy: 1: Supine manual cervical traction x 8 minutes intermittently with pull to tolerance and pt in supine Skilled Intervention: Manual skills to improve joint mobility, ROM, and decrease pain. Utilized anatomy knowledge of the therapist, and assessment of patient's response to intervention. Billing Therapeutic Exercise Treatment Minutes: 22 Manual TherapyTreatment Minutes: 8 Total Treatment Time Minutes (timed/untimed): 30 Rosa Borges, MUKESH Jonas PT documented in this encounterUniversity Hospitals [facility]04-14-2023 History of Present illness Narrative* Vitaly Jonas PT - 12/01/2022 4:38 PM EDT Episode Visit Count: 3 Therapist That Will Accept/Oversee The Plan Of Care: Vitaly Jonas PT Start of Care Date: 10/17/22 Onset Date: 08/20/22 Plan of Care Certification Date: 12/01/22 Next Certification Due Date: 12/29/22 Patient Identified by Name and Date of : Yes REHABILITATION AND SPORTS THERAPY PHYSICAL THERAPY PROGRESS REPORT PLAN OF CARE UPDATE: Assessment: Bowen Jones demonstrates minimal improvement in sitting and sleeping. She has progressed toward goals. Patient continues to present with impairments in ADL's, independence in exercise, overall function, posture, range of motion, strength, symptom management, and tissue tenderness that interfere with working, lifting, sleeping, reaching overhead, grooming, dressing, driving . Current prognosis is Good due to: within-session changes, current objective clinical presentation, good overall health status, positive past response to therapy. She will benefit from continued skilled therapy services to meet the updated goals for this plan of care as noted below. Updated: 12/01/22 Goals for Episode of Care: created on 10/17/22 through 11/28/22 Independent in a Home Exercise Program. - Partially MET, will continue Patient will decrease pain to 0/10 at rest and with functional activities to allow patient to improve tolerance for work. - Not MET, will continue Restore pain free cervical ROM to WFL to allow for improved sleeping tolerance and driving. - Partially MET, will continue Sleep throughout the night without pain/symptoms. - Partially MET, will continue Maintain proper sitting posture throughout the session to allow for improved alignment and tissue function. - Partially MET, will continue Patient will increase strength of postural muscles to WFL to allow for improve ability to maintain proper posture, improve mechanics, and decrease pain. - Not MET, will continue Patient will be able to tolerate reaching, lifting, driving, sleeping, dressing and grooming without increased symptoms. - Not MET, will continue Patient Goals: eliminate pain - Not MET, will continue Patient Goals: eliminate pain Planned Interventions, Frequency, and Duration: 2x/week, 4 weeks Total Number of Visits Planned: 8 Patient to be seen for Therapeutic exercise (46092), Neuromuscular re-education (92437), Manual therapy (43215), Therapeutic activities (44972), Self-intermediate management (23464), Patient/Family/Caregiver Education, Body Mechanics Training PLAN FOR NEXT VISIT: Consider use of PNE cards. Continue with gentle manual therapy. Continue postural stretching and strengthening therex. SUBJECTIVE: Patient Reason for Visit: Pt reports that overall she feels basically the same since evaluation 10/17/22. She does reports that spasms are slightly better. She reports compliance with HEP 1x day. She reports stuggling with therex and movement of her head/neck secondary to pain. She reports that her ability and tolerance for work, driving, reaching, lifting, dressing and grooming are all the same with no change since evaluation. She does report being better able to sleep on her L side. She reports a slight benefit from manual therapy last session that was temporary. She reports and demonstrates increased postural awareness. She asked about use of superficial thermal modalities. Patient Goals: eliminate pain Functional Limitations: working, lifting, sleeping, reaching overhead, grooming, dressing, driving Prior Level of Function: Independent without limitations Pain: Pain Pain Level: 7 Pain Location: Scapula - Left, Shoulder - Left, Neck - Left Description: Aching, Stabbing (pulling and a little) Frequency: Intermittent Post Treatment Pain Post Treatment Pain Level: Better Post Treatment Symptoms: After session and especially manual therapy, pt reported less tension and tension was less palpable after manual therapy. PROMIS Scales Higher is Better 11/25/2022 10/17/2022 Phys Func - Score 38 (moderate dysfunction) 41 (mild dysfunction) Phys Func - Percentile 12 % 18 % Self-Eff Symptom - Score 38 (Low) 38 (Low) Self-Eff Symptom - Percentile 12 % 12 % T-scores: mean of general population = 50. 5 points is clinically meaningfully difference Percentiles provide an indication of how the patient's score ranks in relation to the general population. Higher percentile rankings indicate better function/quality of life. 50th percentile is the average of the general population and indicates half of respondents had a worse score. OBJECTIVE MEASURES WITH LEVEL OF FUNCTION: Posture / Alignment Posture: Forward head, Increased thoracic kyphosis, Rounded shoulders, Decreased lumbar lordosis Sitting Posture: Comments Sitting Posture Comments: improved intermittently Cervical Spine ROM Cervical Flexion AROM (degrees) : 48 Degrees Cervical Extension AROM (degrees) : 48 Degrees Cervical Side-Bend Right AROM (degrees): 30 Degrees Cervical Side-Bend Left AROM (degrees) : 27 Degrees Cervical Rotation Right AROM (degrees) : 65 Degrees Cervical Rotation Left AROM (degrees) : 55 Degrees TREATMENT: Therapeutic Exercise: 1: SciFit StepOne seat #8 2: seated cervical spine rotation B 2x10 with emphasis on 3: seated L UT stretch 3x30 seconds 4: seated L levator scapulae stretch 3x30 seconds 5: corner pectoral stretch 3x30 seconds 6: seated active scapular retraction in front of mirror to avoid shrugging 2x10 7: HEP reviewed and corrected per above. Pt to avoid lateral flexion to left because this is her symptomatic side. 8: Re-assessment results were reviewed with patient and used as rationale for plan of care recommendations. Skilled Intervention: Patient was educated in proper exercise technique and purpose for exercises. Skilled judgment was provided in selection of appropriate interventions. Correct performance of therapeutic exercises was facilitated with verbal, visual, and tactile cuing. Patient education as noted. Manual Therapy: 1: GENTLE massage and very light trigger point release to B cervical paraspinals, UT muscles and levator scapulae muscles. Total time with manual therapy was 10 minutes with pt supine Skilled Intervention: Manual skills to improve joint mobility, ROM, and decrease pain. Utilized anatomy knowledge of the therapist, and assessment of patient's response to intervention. Neuromuscular Re-Education: Pain Intro: Patient introduced to the topic of pain neuroscience education and that improving knowledge of how pain works promotes improved recovery and rehabilitation. Current knowledge and understanding of patient on pain related topics was explored to create baseline. Homework: Patient received the pain knowledge quiz by SALV[employer]OR Miranda as a means to begin addressing misconceptualizations of pain. Skilled Intervention: Patient education as noted. Billing Therapeutic Exercise Treatment Minutes: 40 Manual TherapyTreatment Minutes: 10 Neuromuscular Re-Education Treatment Minutes: 10 Total Treatment Time Minutes (timed/untimed): 60 Vitaly Jonas PT documented in this encounterUniversity Hospitals [facility]04-10-2023 History of Present illness Narrative* Vitaly Jonas PT - 11/27/2022 11:04 AM EDT Episode Visit Count: 2 Therapist That Will Accept/Oversee The Plan Of Care: Vitaly Jonas PT Start of Care Date: 10/17/22 Onset Date: 08/20/22 Plan of Care Certification Date: 10/17/22 Next Certification Due Date: 11/28/22 Patient Identified by Name and Date of : Yes REHABILITATION AND SPORTS THERAPY PHYSICAL THERAPY TREATMENT NOTE ASSESSMENT: Bowen Jones tolerated the session with fatigue and expected muscle soreness. She demonstrated difficulty with cervical rotation to the L and tolerance to light touch in L neck and scapular region . The patient will continue to benefit from ongoing skilled physical therapy to progress toward set goals. PLAN FOR NEXT VISIT: Consider manual cervical traction. Continue with very light STM to L shoulder and neck. SUBJECTIVE: Patient Reason for Visit: Pt reports that her spasms have decreased, but still has themfrequently, especially with driving, mopping, changing diapers. Pt states that she has spasms underneath her L shoulder blade. Pt states turning her head to the L is difficult and feels she wants to turn her whole body. Pain: Pain Pain Level: 7 Pain Location: Scapula - Left, Shoulder - Left, Neck - Left Description: Aching, Sharp, Numbness, Tingling Frequency: Continuous (constant but varies in intensity) Post Treatment Pain Post Treatment Symptoms: Pt stated that her neck felt a little looser at the end of the session. OBJECTIVE MEASURES WITH LEVEL OF FUNCTION: Cervical rotation limited looking to the left compared to looking R. TREATMENT: Therapeutic Exercise: 1: seated L levator scapulae stretch 3x20 seconds without involvement of UEs. (modified hold time for HEP to decrease strain felt in R side of neck .) 2: *Seated R UT stretch 3x20 seconds 3: Seated AROM cervical rotation 1x5 B 4: *Corner pectoral stretch 3 x 20 seconds 5: *Doorway pectoral stretch 3x20 seconds Skilled Intervention: Patient was educated in proper exercise technique and purpose for exercises. Reviewed and educated patient on additions/changes for home exercise program as above (*). Skilled judgment was provided in selection of appropriate interventions. Provided written instruction for home exercise program to facilitate proper performance and compliance. Correct performance of therapeutic exercises was facilitated with verbal and visual cuing. Manual Therapy: 1: STM to L levator scap, UT, rhomboids, neck,SCM, and scapular region with very light/minimal pressure with pt in supine with a wedge under shoulders and head. (Pt had bouts of ligth STM over L SCM jsut inferior to L occiput causing tingling to her legs while in supine.) 2: trigger point release to L rhomboids, very light pressure applied 3 x 30 second holds Skilled Intervention: Manual skills to improve joint mobility, ROM, and decrease pain. Utilized anatomy knowledge of the therapist, and assessment of patient's response to intervention. Billing Therapeutic Exercise Treatment Minutes: 20 Manual TherapyTreatment Minutes: 25 Total Treatment Time Minutes (timed/untimed): 45 Rosa Borges HOISTING PILE DRIVING ENGINEER Vitaly Jonas PT documented in this encounterUniversity Hospitals Geauga [facility]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 strain of left shoulder region Instructions: ED Muscle Strain, Extremity Prescriptions: No Action acetaminophen [Tylenol] 325 mg tablet 650 mg PO ONCE PRN (Reason: Pain) albuterol sulfate 1 INHALER inhaler 1 - 2 puff inhalation Q4H PRN PRN (Reason: Wheezing) Qty: 1 0RF oxycodone 5 mg capsule 5 mg PO Q6H PRN (Reason: pain) 3 Days Qty: 10 0RF Stand Alone Forms: ED Work / School Excuse Primary Care Provider: Care Physician,No Primary Referrals: Arleth Victor MD [Med Staff - Purchasing Officer] - 5-7 Days Care Physician,No Primary [Primary Care Provider] - Disposition Disposition: Home, Self Care What to do if you have Problems For any increased pain, shortness of breath, bleeding, nausea or vomiting, chestpain, or any unexpected problems, contact your Primary Care Provider. Call [facility] ([phone]) or report to the closest Emergency Room. Call 911 if necessary. 09/28/22 1511 <Electronically signed by Maximo Lew DO> Cosigner Signature (if applicable): CC: No Primary Care Physician ~ Signed [facility] Work Phone: [phone] 113-792602-07-2023 Miscellaneous Notes* Telephone Encounter - Lida Bradley LPN - 09/26/2022 7:40 PM EST Phone call placed patient advised (see prior provider encounter) Patient verbalized understanding agreed with plan of care. Lida Bradley LPN * Telephone Encounter - Veronica Patino PA-C - 09/26/2022 6:36 PM EST Please call and let patient know her back x-rays are normal. Would recommend continuing the prednisone and Flexeril as needed. Follow-up with primary care if not improving. documented in this encounterUniversity Hospitals [facility]02-07-2023 History of Present illness Narrative* Beatriz Johnson, RT(R) - 09/26/2022 6:00 PM EST Radiology Service Progress Note PATIENT NAME: Bowen Jones DATE OF SERVICE: September 26, 2022 TIME: 5:55 PM PATIENT IDENTITY VERIFICATION COMPLETED USING TWO (2) IDENTIFIERS: Name and Date of confirmedby patient verbally. FALL SCREENING: Has the patient had 2 falls in the last year or 1 fall with injury or currently using an Ambulatory Assistive Device (Walker, Cane, Wheelchair, Crutches, etc.)? No PATIENT GENDER DATA: Female. status: : No status: NO. PATIENT RELEVANT IMPLANT DATA REVIEWED: Yes RADIOLOGY DEPARTMENT: General X-ray: Exam(s) Completed: Spine X-Ray(s): Thoracic PERIPHERAL IV DATA: Not applicable SIGNED BY: RT Demarcus(R) September 26, 2022 5:55 PM documented in this encounterUniversity Hospitals Ge[facility] Center11-03-2022 Instructions* Patient Instructions* Devon Vargas APRN.CUSTODIAL SERVICES MANAGER - 06/22/2022 2:54 PM EDT How to Manage Common Symptoms Associated with COVID for Adults Fever- Fever is a temperature over 100.4 F and can occur when the body is fighting an infection. Tohelp treat a fever: Drink plenty of fluids and stay well hydrated. Eat small amounts of easy to digest food. Rest. Your body needs rest to recover, but getting up and moving around the house frequently is a good idea. You should try to continue doing your normal daily activities (bathing, toileting, grooming, cooking), though you will probably feel tired, and need to rest often. Avoid any heavy activity or exercise, as this will increase your body temperature. Dress in light clothing and stay covered in a light sheet. Keep the room temperature cool. Take a slightly warm (not cold or cool) bath, or apply damp washcloths to the forehead and wrists. Cough- Cough is a common symptom associated with COVID and can be bothersome. To help treat a cough: Stay well hydrated. Try warm water or tea with lemon and/or honey to help soothe the cough. Use a humidifier to add moisture to the air. Try a product with menthol, like a cough drop or a rub for your chest such as Vicks, which can helpreduce cough. Try cough drops. Avoid smoking and other strong odors or perfumes. Try breathing exercises to keep your lungs open and clear. Take a big deep breath through your noseand hold for 5 seconds before slowly releasing. Repeat frequently, while you are awake. Congestion- Runny nose or nasal congestion can occur with COVID. Treatment can help relieve symptoms: Try OTC nasal saline spray, or nasal saline rinse to relieve mucus congestion. Nasal strips can help keep nasal passages open, to increase airflow. Elevating your head with an extra pillow in bed can help reduce congestion. Using a humidifier can increase moisture in the air, and make breathing easier. Sore Throat- Another common symptom with COVID, can be managed at home by: Stay well hydrated. Gargle with salt water - mix teaspoon salt with 1 cup of warm water and gargle. This helps to loosen mucus in the back of the throat and may reduce discomfort. Try ice chips, popsicles or lozenges to soothe the throat. Nausea/Vomiting/Diarrhea- These are common symptoms, and staying hydrated is most important. If you are nauseous or vomiting, start with small sips of water every 10-15 minutes and increase astolerated. You can try sucking an ice cube too. If tolerating, you can try pedialyte or Gatorade, or flat sprite or jordyn-jaimee. Start slowly and increase as you are able to. Instead of meals, try smaller, more frequent snacks. Try eating bland foods like crackers, toast, rice, and applesauce. Avoid spicy, greasy or fried foods and dairy containing foods. Even if you aren't feeling hungry due to lack of smell or taste, it is important to try to take in some food when you are able. After drinking and eating, rest in an upright position for up to two hours as needed to help decrease nauseous feelings. Try closing your eyes, avoid moving and watching TV. Avoid strong odors that can make you feel more nauseated. When to seek emergency medical attention Look for emergency warning signs for COVID-19. If having any of these symptoms, seek emergency medical care immediately: Trouble breathing Persistent pain or pressure in the chest New confusion Inability to wake or stay awake Bluish lips or face *This list is not all possible symptoms. Please call your medical provider for any other symptoms that are severe or concerning to you. documented in this encounterUniversity Hospitals [facility]11-03-2022 History of Present illness Narrative* Devon Vargas APRN.CNP - 06/22/2022 2:31 PM EDT Subjective HPI HPI Bowen Jones is a 21 year old female who presents today for CC of fever, cough, ear pain, congestion, chills, body aches, nausea. This started 2 days ago. Has tried otc medication for relief.Symptoms are worsened by nothing. Risk factors, no known sick exposures. Denies possibility of being . nonsmoker. .Patient presents with: Ear Pain: Bilateral ear pain, chills, body aches,nausea x 2 days PAST MEDICAL HISTORY Diagnosis Date Allergic rhinitis anxiety Low-lying placenta 11/18/2020 01/31/21- No longer low lying via ultrasound. Anahy Weeks APRN.CNM 11/18/20:recheck placental location in 8-12 WEEKS. Kerri Godwin MD Menarche -2011 NEGATIVE HISTORY OF 9-10-12 Normal Color Vision NEGATIVE MEDICAL HISTORY PAST SURGICAL HISTORY Procedure Laterality Date NEXPLANON INSERTION 05/31/2015 TONSILLECTOMY PRIMARY/SECONDARY <AGE 12 ALLERGIES Environmental [Other] MEDICATIONS albuterol HFA (PROVENTIL HFA, VENTOLIN HFA) 90 mcg/actuation inhaler Inhale 2 Puffs as instructed every 4 hours as needed. benzonatate (TESSALON PERLE) 100 mg capsule Take 1-2 capsules tid prn, no more than 6 in 24 hours. (Patient not taking: Reported on 05/24/2022) dextromethorphan-guaiFENesin (MUCINEX DM) 30-600 mg per tablet Take 1 tablet by mouth twice daily. (Patient not taking: Reported on 05/24/2022) PNV no.95/ferrous fum/folic ac ( ORAL) Take by mouth. (Patient not taking: Reported on 04/28/2022) FAMILY HISTORY Problem Relation Age of Onset Heart Mother other (bipolar) Father No Known Problems Sister No Known Problems Sister No Known Problems Brother No Known Problems Brother Heart Maternal Grandmother No Known Problems Maternal Grandfather other (bipolar) Paternal Grandmother other (bipolar) Paternal Grandfather other (Negative) Other Heart Brother 14 pericarditis Social History Tobacco Use Smoking status: Former Packs/day: 0.50 Types: Cigarettes Quit date: 04/26/2020 Years since quittin.1 Smokeless tobacco: Never Vaping Use Vaping Use: Never used Substance Use Topics Alcohol use: No Drug use: No Review of Systems Constitutional: Positive for chills, fever and malaise/fatigue. HENT: Positive for congestion and sore throat. Negative for ear pain and nosebleeds. Respiratory: Positive for cough. Negative for shortness of breath and wheezing. Cardiovascular: Negative for chest pain. Gastrointestinal: Positive for nausea. Negative for diarrhea and vomiting. Musculoskeletal: Negative for neck pain. Skin: Negative for itching and rash. Objective Blood pressure 102/66, pulse 93, temperature 37.9 C (100.2 F), resp. rate 19, weight 53.2 kg (117 lb 3.2 oz), last menstrual period 07/20/2020, SpO2 97 %, unknown if currently . Physical Exam Constitutional: General: She is not in acute distress. Appearance: She is not toxic-appearing or diaphoretic. HENT: Head: Normocephalic and atraumatic. Right Ear: Hearing, ear canal and external ear normal. Tympanic membrane is bulging. Tympanic membrane is not perforated or erythematous. Left Ear: Hearing, ear canal and external ear normal. Tympanic membrane is bulging. Tympanic membrane is not perforated or erythematous. Nose: Nose normal. Mouth/Throat: Pharynx: Uvula midline. Posterior oropharyngeal erythema present. No pharyngeal swelling, oropharyngeal exudate or uvula swelling. Eyes: General: Lids are normal. No scleral icterus. Right eye: No discharge. Left eye: No discharge. Conjunctiva/sclera: Conjunctivae normal. Pupils: Pupils are equal, round, and reactive to light. Neck: Trachea: Trachea normal. Cardiovascular: Rate and Rhythm: Normal rate and regular rhythm. Heart sounds: Normal heart sounds. Pulmonary: Effort: Pulmonary effort is normal. Breath sounds: Normal breath sounds. Musculoskeletal: Cervical back: Normal range of motion and neck supple. Lymphadenopathy: Cervical: No cervical adenopathy. Right cervical: No superficial cervical adenopathy. Left cervical: No superficial cervical adenopathy. Skin: Findings: No rash. Neurological: Mental Status: She is alert and oriented to person, place, and time. ASSESSMENT/PLAN: 1. Sore throat - ICD9: 462, ICD10: J02.9 (primary diagnosis) - suspect viral - Alere Strep Test neg, no culture pending - Discussed supportive care treatment with fluids, rest and analgesia. - The patient should follow up in 3-5 days if symptoms persist or worsen - ALERE STREP A TEST (AG) 2. URI, acute - ICD9: 465.9, ICD10: J06.9 - Discussed viral etiology and rationale for treatment. - Symptomatic treatment with prn analgesia - Supportive care with fluids and rest Discussed quarantine, social distancing otc medications discussed Push fluids -If you experience chest pain/shortness of breath go to ER - COVID WITH FLUA+B, ROUTINE Devon Vargas APRN.CNP documented in this encounterUniversity Hospitals [facility]11-02-2022 Miscellaneous Notes* Telephone Encounter - Margret Mace MA - 06/21/2022 7:59 AM EDT Patient's phone numbers either not in service or no VM set up, left message with patient mother to pass along test results, verbalized understanding. Margret Mace MA * Telephone Encounter - Veto Wang APRN.CNP - 06/21/2022 7:45 AM EDT COVID-19, influenza A, and influenza B PCR test are negative. Continue supportive therapies as discussed during visit. Follow-up with PCP if symptoms are not improving. Veto Wang APRN.CNP documented in this encounterUniversity Hospitals [facility]11-01-2022 Instructions* Patient Instructions* Veto Wang APRN.CUSTODIAL SERVICES MANAGER - 06/20/2022 2:50 PM EDT How to Manage Common Symptoms Associated with COVID for Adults Fever- Fever is a temperature over 100.4 F and can occur when the body is fighting an infection. Tohelp treat a fever: Drink plenty of fluids and stay well hydrated. Eat small amounts of easy to digest food. Rest. Your body needs rest to recover, but getting up and moving around the house frequently is a good idea. You should try to continue doing your normal daily activities (bathing, toileting, grooming, cooking), though you will probably feel tired, and need to rest often. Avoid any heavy activity or exercise, as this will increase your body temperature. Dress in light clothing and stay covered in a light sheet. Keep the room temperature cool. Take a slightly warm (not cold or cool) bath, or apply damp washcloths to the forehead and wrists. Cough- Cough is a common symptom associated with COVID and can be bothersome. To help treat a cough: Stay well hydrated. Try warm water or tea with lemon and/or honey to help soothe the cough. Use a humidifier to add moisture to the air. Try a product with menthol, like a cough drop or a rub for your chest such as Vicks, which can helpreduce cough. Try cough drops. Avoid smoking and other strong odors or perfumes. Try breathing exercises to keep your lungs open and clear. Take a big deep breath through your noseand hold for 5 seconds before slowly releasing. Repeat frequently, while you are awake. Congestion- Runny nose or nasal congestion can occur with COVID. Treatment can help relieve symptoms: Try OTC nasal saline spray, or nasal saline rinse to relieve mucus congestion. Nasal strips can help keep nasal passages open, to increase airflow. Elevating your head with an extra pillow in bed can help reduce congestion. Using a humidifier can increase moisture in the air, and make breathing easier. Sore Throat- Another common symptom with COVID, can be managed at home by: Stay well hydrated. Gargle with salt water - mix teaspoon salt with 1 cup of warm water and gargle. This helps to loosen mucus in the back of the throat and may reduce discomfort. Try ice chips, popsicles or lozenges to soothe the throat. Nausea/Vomiting/Diarrhea- These are common symptoms, and staying hydrated is most important. If you are nauseous or vomiting, start with small sips of water every 10-15 minutes and increase astolerated. You can try sucking an ice cube too. If tolerating, you can try pedialyte or Gatorade, or flat sprite or jordyn-jaimee. Start slowly and increase as you are able to. Instead of meals, try smaller, more frequent snacks. Try eating bland foods like crackers, toast, rice, and applesauce. Avoid spicy, greasy or fried foods and dairy containing foods. Even if you aren't feeling hungry due to lack of smell or taste, it is important to try to take in some food when you are able. After drinking and eating, rest in an upright position for up to two hours as needed to help decrease nauseous feelings. Try closing your eyes, avoid moving and watching TV. Avoid strong odors that can make you feel more nauseated. When to seek emergency medical attention Look for emergency warning signs for COVID-19. If having any of these symptoms, seek emergency medical care immediately: Trouble breathing Persistent pain or pressure in the chest New confusion Inability to wake or stay awake Bluish lips or face *This list is not all possible symptoms. Please call your medical provider for any other symptoms that are severe or concerning to you. documented in this encounterUniversity Hospitals [facility]11-01-2022 History of Present illness Narrative* Veto Wang APRN.CNP - 06/20/2022 2:49 PM EDT Subjective HPI Nontoxic-appearing female presents urgent care chief complaint nasal congestion bilateral ear pain.Duration of symptoms upon arising. Associated symptoms listed above. Patient states significant other has similar signs symptoms. Has used Tylenol this is helped some. Denies any known COVID exposures. Denies any fever body aches chills productive cough chest pain shortness of breath pleuritic pain hemoptysis nausea vomiting abdominal pain change in bowel or bladder habits. Past medical history prescription medication use and allergies reviewed. .Patient presents with: Head Congestion: pain in both ears x this am PAST MEDICAL HISTORY Diagnosis Date Allergic rhinitis anxiety Low-lying placenta 11/18/2020 01/31/21- No longer low lying via ultrasound. Anahy Weeks APRN.CNM 11/18/20:recheck placental location in 8-12 WEEKS. Kerri Godwin MD Menarche 2-2011 NEGATIVE HISTORY OF 04-29-12 Normal Color Vision NEGATIVE MEDICAL HISTORY PAST SURGICAL HISTORY Procedure Laterality Date NEXPLANON INSERTION 05/31/2015 TONSILLECTOMY PRIMARY/SECONDARY <AGE 11 ALLERGIES Environmental [Other] MEDICATIONS albuterol HFA (PROVENTIL HFA, VENTOLIN HFA) 90 mcg/actuation inhaler Inhale 2 Puffs as instructed every 4 hours as needed. benzonatate (TESSALON PERLE) 100 mg capsule Take 1-2 capsules tid prn, no more than 6 in 24 hours. (Patient not taking: Reported on 05/24/2022) dextromethorphan-guaiFENesin (MUCINEX DM) 30-600 mg per tablet Take 1 tablet by mouth twice daily. (Patient not taking: Reported on 05/24/2022) PNV no.95/ferrous fum/folic ac ( ORAL) Take by mouth. (Patient not taking: Reported on 04/28/2022) FAMILY HISTORY Problem Relation Age of Onset Heart Mother other (bipolar) Father No Known Problems Sister No Known Problems Sister No Known Problems Brother No Known Problems Brother Heart Maternal Grandmother No Known Problems Maternal Grandfather other (bipolar) Paternal Grandmother other (bipolar) Paternal Grandfather other (Negative) Other Heart Brother 14 pericarditis Social History Tobacco Use Smoking status: Former Packs/day: 0.50 Types: Cigarettes Quit date: 04/26/2020 Years since quittin.1 Smokeless tobacco: Never Vaping Use Vaping Use: Never used Substance Use Topics Alcohol use: No Drug use: No BP 122/62 Pulse 86 Temp 36.7 C (98 F) Resp 16 Wt 53.1 kg (117 lb) LMP 07/20/2020 (LMP Unknown) SpO2 98% BMI 20.08 kg/m ROS Objective Physical Exam Constitutional: General: She is not in acute distress. Appearance: She is not diaphoretic. HENT: Head: Normocephalic. Right Ear: Tympanic membrane, ear canal and external ear normal. Left Ear: Tympanic membrane, ear canal and external ear normal. Nose: Congestion present. Mouth/Throat: Mouth: Mucous membranes are moist. Pharynx: Oropharynx is clear. No oropharyngeal exudate or posterior oropharyngeal erythema. Eyes: Conjunctiva/sclera: Conjunctivae normal. Pupils: Pupils are equal, round, and reactive to light. Cardiovascular: Rate and Rhythm: Normal rate and regular rhythm. Heart sounds: Normal heart sounds. Pulmonary: Effort: Pulmonary effort is normal. No tachypnea, accessory muscle usage or respiratory distress. Breath sounds: Normal breath sounds. No stridor. No wheezing, rhonchi or rales. Abdominal: Palpations: Abdomen is soft. Tenderness: There is no abdominal tenderness. Musculoskeletal: Cervical back: Normal range of motion and neck supple. No rigidity or tenderness. Lymphadenopathy: Cervical: No cervical adenopathy. Skin: General: Skin is warm and dry. Neurological: Mental Status: She is alert and oriented to person, place, and time. ASSESSMENT/PLAN: 1. Viral illness - ICD9: 079.99, ICD10: B34.9 - COVID WITH FLUA+B, ROUTINE Patient diagnosed with viral illness. We will treat conservatively at this time. Patient was educated on supportive therapies. Patient will follow up with primary care provider as needed. Patient wasinstructed to immediately proceed to emergency room for any new, worsening, or symptoms lasting longer than anticipated. The patient's clinical presentation is otherwise unremarkable at this time. Based on exam and clinical finding, the patient is stable for discharge. Plan of care was discussed with patient. Patient verbalizes understanding and agrees to plan of care. This note was generated using [employer] software. It may contain errors in wording, punctuation, or spelling. Veto Wang APRN.VARGAS documented in this encounterUniversity Hospitals Geaug[facility] Center09-12-2022 Instructions* Patient Instructions* Elida Prado APRN.CNP - 05/01/2022 12:58 PM EDT Motrin or Tylenol as needed for fever or pain. Salt water gargles, chloraseptic spray or lozenges as needed for sore throat. Warm beverages, honey. Nasal saline spray as needed Albuterol inhaler as needed Tessalon Perles 1-2 every 8 hours, do not combine this with robitussin or delsym If covid negative, still chest tightness, start prednisone, printed RX given documented in this encounterUniversity Hospitals [facility]09-12-2022 History of Present illness Narrative* Elida Prado APRN.CNP - 05/01/2022 12:49 PM EDT Images from the original note were not included. Subjective The history is provided by the patient and a relative. No surveillance specialist was used. DANGELO Jones is a 21 year old female who presents today for CC of cough chest congestion, wheezing x 4 days. Tested Sunday for covid, 12 hours os symptoms, test was negative Symptoms include: Fever (?100.4F): No or Chills: No Cough: Yes Shortness of breath: Yes or Difficulty breathing: No Fatigue: Yes Muscle aches: No Headache: Yes New loss of smell or taste: No Sore throat: Yes Nasal congestion: Yes or Rhinorrhea: Yes Nausea: No or Vomiting: No Diarrhea: No OTC meds/remedies that patient has tried: acetaminophen and Mucinex, without relief High risk category assessment Chronic lung disease Exposures: Sick contacts? Yes Family or close contacts with confirmed/probable COVID-19 in last 14 days? No BP 100/64 Pulse 96 Temp 37.2 C (98.9 F) Resp 16 Wt 50.4 kg (111 lb 3.2 oz) LMP 07/20/2020(LMP Unknown) SpO2 99% BMI 19.09 kg/m Social History Tobacco Use Smoking status: Former Packs/day: 0.50 Types: Cigarettes Quit date: 04/26/2020 Years since quittin.0 Smokeless tobacco: Never Vaping Use Vaping Use: Never used Substance Use Topics Alcohol use: No Drug use: No PAST MEDICAL HISTORY Diagnosis Date Allergic rhinitis anxiety Low-lying placenta 11/18/2020 01/31/21- No longer low lying via ultrasound. Anahy Weeks APRN.CNM 11/18/20:recheck placental location in 8-12 WEEKS. Kerri Godwin MD Menarche NEGATIVE HISTORY OF 9-10-12 Normal Color Vision NEGATIVE MEDICAL HISTORY I have confirmed and edited as necessary, the [facility] Review of Systems Constitutional: Positive for malaise/fatigue. Negative for chills and fever. HENT: Positive for congestion and sore throat. Negative for ear pain and sinus pain. Respiratory: Positive for cough. Negative for sputum production, shortness of breath and wheezing. Cardiovascular: Negative for chest pain. Gastrointestinal: Negative for abdominal pain, diarrhea, nausea and vomiting. Musculoskeletal: Positive for myalgias. Neurological: Negative for headaches. Objective Physical Exam Vitals and nursing note reviewed. HENT: Head: Normocephalic and atraumatic. Right Ear: Tympanic membrane, ear canal and external ear normal. Left Ear: Tympanic membrane, ear canal and external ear normal. Nose: Mucosal edema, congestion and rhinorrhea present. Right Sinus: No maxillary sinus tenderness or frontal sinus tenderness. Left Sinus: No maxillary sinus tenderness or frontal sinus tenderness. Mouth/Throat: Pharynx: Uvula midline. Oropharyngeal exudate and posterior oropharyngeal erythema present. Cardiovascular: Rate and Rhythm: Normal rate and regular rhythm. Heart sounds: Normal heart sounds. Pulmonary: Effort: Pulmonary effort is normal. Breath sounds: Normal breath sounds. Comments: A dry hacking cough was noted during this encounter. Talking in full sentences. Handling secretions without drooling. Lips and nailbeds are pink without cyanosis. Lymphadenopathy: Head: Right side of head: No submental, submandibular or tonsillar adenopathy. Left side of head: No submental, submandibular or tonsillar adenopathy. Cervical: No cervical adenopathy. Skin: General: Skin is warm and dry. Neurological: Mental Status: She is alert. Psychiatric: Mood and Affect: Affect normal. ASSESSMENT/PLAN: 1. Viral illness - ICD9: 079.99, ICD10: B34.9 (primary diagnosis) - Discussed viral etiology and rationale for treatment. - Symptomatic treatment with prn analgesia - Supportive care with fluids and rest - COVID WITH FLUA+B, ROUTINE 2. Sore throat - ICD9: 462, ICD10: J02.9 - suspect viral - Alere Strep Test negative, no culture pending - STREP A MOLECULAR (POC) 3. Acute cough - ICD9: 786.2, ICD10: R05.1 4. Wheezing - ICD9: 786.07, ICD10: R06.2 Continue albuterol inhaler Tesyesenia hedrick prn Repeat covid, will call with results. - ALBUTEROL SULFATE HFA 90 MCG/ACTUATION AEROSOL INHALER Diagnosis and treatment plan were discussed and questions were answered to the patient's satisfaction. Pt acknowledged understanding of concepts and follow up plan. Specific signs and symptoms that would indicate the need for higher level of care were discussed indetail warranting prompt ER evaluation. Elida Prado APRN.CNP documented in this encounterUniversity Hospitals [facility]09-09-2022 Instructions* Patient Instructions* Elida Prado APRN.CNP - 04/28/2022 12:33 PM EDT covid test ordered You will be notified in 24 hours, results available on [facility] Home isolation until covid results are back Rest, increase water intake Motrin or Tylenol as needed for fever or pain. Salt water gargles, chloraseptic spray or lozenges as needed for sore throat. Warm beverages, honey. Nasal saline spray as needed Cool mist humidifier at night Tylenol (generic acetaminophen) 500 mg-2 tabs every 8 hrs. as needed for fever and aches Ibuprofen 600 mg (3-200mg tablets) every 6 hours Mucinex DM as ordered * Seek medical care immediately, call 911, go to ER if you have chest pain, difficulty breathing, shortness of breath, inability to swallow. documented in this encounterUniversity Hospitals Ge[facility]09-09-2022 History of Present illness Narrative* Elida Prado APRN.CNP - 04/28/2022 12:23 PM EDT Subjective The history is provided by the patient. No surveillance specialist was used. HPI Bowen Jones is a 21 year old female who presents today for CC of sore throat, body aches, nasal congestion and headaches that started this morning. Symptoms include: Fever (?100.4F): No or Chills: No Cough: No Shortness of breath: No or Difficulty breathing: No Fatigue: Yes Muscle aches: Yes Headache: Yes New loss of smell or taste: No Sore throat: Yes Nasal congestion: Yes or Rhinorrhea: Yes Nausea: No or Vomiting: No Diarrhea: No OTC meds/remedies that patient has tried: none. High risk category assessment No high risk factors Exposures: Sick contacts? Yes Family or close contacts with confirmed/probable COVID-19 in last 14 days? No BP 122/78 Pulse 77 Temp 36.8 C (98.2 F) Resp 21 Wt 50.7 kg (111 lb 12.8 oz) LMP 07/20/2020 (LMP Unknown) SpO2 99% BMI 19.19 kg/m Social History Tobacco Use Smoking status: Former Packs/day: 0.50 Types: Cigarettes Quit date: 04/26/2020 Years since quittin.0 Smokeless tobacco: Never Vaping Use Vaping Use: Never used Substance Use Topics Alcohol use: No Drug use: No PAST MEDICAL HISTORY Diagnosis Date Allergic rhinitis anxiety Low-lying placenta 11/18/2020 01/31/21- No longer low lying via ultrasound. Anahy Weeks APRN.CNM 11/18/20:recheck placental location in 8-12 WEEKS. Kerri Godwin MD Menarche NEGATIVE HISTORY OF 9-10-12 Normal Color Vision NEGATIVE MEDICAL HISTORY I have confirmed and edited as necessary, the [facility] Review of Systems Constitutional: Positive for malaise/fatigue. Negative for chills and fever. HENT: Positive for congestion and sore throat. Negative for ear pain and sinus pain. Respiratory: Negative for cough. Gastrointestinal: Negative for abdominal pain, diarrhea, nausea and vomiting. Musculoskeletal: Negative for myalgias. Neurological: Positive for headaches. Objective Physical Exam Vitals and nursing note reviewed. HENT: Head: Normocephalic and atraumatic. Right Ear: Tympanic membrane, ear canal and external ear normal. Left Ear: Tympanic membrane, ear canal and external ear normal. Nose: Mucosal edema, congestion and rhinorrhea present. Right Sinus: No maxillary sinus tenderness or frontal sinus tenderness. Left Sinus: No maxillary sinus tenderness or frontal sinus tenderness. Mouth/Throat: Pharynx: Uvula midline. Posterior oropharyngeal erythema (mild) present. No oropharyngeal exudate. Cardiovascular: Rate and Rhythm: Normal rate and regular rhythm. Heart sounds: Normal heart sounds. Pulmonary: Effort: Pulmonary effort is normal. Breath sounds: Normal breath sounds. Lymphadenopathy: Head: Right side of head: No submental, submandibular or tonsillar adenopathy. Left side of head: No submental, submandibular or tonsillar adenopathy. Cervical: No cervical adenopathy. Skin: General: Skin is warm and dry. Neurological: Mental Status: She is alert. Psychiatric: Mood and Affect: Affect normal. ASSESSMENT/PLAN: 1. Upper respiratory symptom - ICD9: 786.9, ICD10: R09.89 (primary diagnosis) - 2019 CORONAVIRUS 2. Suspected COVID-19 virus infection - ICD9: V01.79, ICD10: Z20.822 - 2019 CORONAVIRUS 3. Viral illness - ICD9: 079.99, ICD10: B34.9 - Discussed viral etiology and rationale for treatment. - Symptomatic treatment with prn analgesia - Supportive care with fluids and rest Home isolation Testing ordered Comfort measures discussed - see patient instructions. When to seek higher level of care Notified in 24-48 hours with results, available on 2018 CORONAVIRUS Diagnosis and treatment plan were discussed and questions were answered to the patient's satisfaction. Pt acknowledged understanding of concepts and follow up plan. Specific signs and symptoms that would indicate the need for higher level of care were discussed indetail warranting prompt ER evaluation. Elida Prado APRN.CNP documented in this encounterUniversity Hospitals [facility]08-17-2022 History of Present illness Narrative* Katelynn Jiang APRN.CNP - 04/05/2022 7:13 PM EDT CC: Patient presents with: Headache: NAVARRO x 2 days and COVID exposure HPI: Bowen Jones is a 21 year old female who presents to the office with complaint of headache for a few days. Symptoms are staying the same. Associated symptoms includes headache. Denies body aches, fever, cough, nausea, vomiting , and diarrhea. Treatments tried include nothing so far. with no relief of symptoms. Sick contacts: yes covid. History of asthma, frequent episodes of bronchitis, chronic bronchitis, bronchiectasis or COPD: No Smoker: No Seasonal/environmental allergies: No The ROS is otherwise negative. The patient's pmh, medications, allergies, and past visits are reviewed. PHYSICAL EXAM: BP 102/64 Pulse 80 Temp 37.4 C (99.3 F) (Tympanic) Resp 18 Wt 51.3 kg (113 lb) LMP 07/20/2020 (LMP Unknown) SpO2 98% BMI 19.40 kg/m General appearance: alert, cooperative, pleasant, in no acute distress Head: Normocephalic Eyes: EOM's intact, conjunctiva pink and moist, no icterus, sclera white, non-injected Heart: Negative. RRR without obvious murmur, gallop, or rubs. No ectopy. Lungs: clear to auscultation, without rales or wheeze, good air exchange PAST MEDICAL HISTORY Diagnosis Date Allergic rhinitis anxiety Low-lying placenta 11/18/2020 01/31/21- No longer low lying via ultrasound. Anahy Weeks APRN.CNM 11/18/20:recheck placental location in 8-12 WEEKS. Kerri Godwin MD Menarche 2-2011 NEGATIVE HISTORY OF 9-10-12 Normal Color Vision NEGATIVE MEDICAL HISTORY PAST SURGICAL HISTORY Procedure Laterality Date NEXPLANON INSERTION 05/31/2015 TONSILLECTOMY PRIMARY/SECONDARY <AGE 12 ALLERGIES Environmental [Other] MEDICATIONS PNV no.95/ferrous fum/folic ac ( ORAL) Take by mouth. albuterol HFA (PROVENTIL HFA, VENTOLIN HFA) 90 mcg/actuation inhaler Inhale 2 Puffs as instructed every 4 hours as needed. Tyuzzrgcpyusxft-Ecgtgqkjt-PQ (BROMFED DM) 2-30-10 mg/5 mL syrup Take 5-10 ml po q6h prn (Patient not taking: Reported on 08/22/2021 ) FAMILY HISTORY Problem Relation Age of Onset Heart Mother other (bipolar) Father No Known Problems Sister No Known Problems Sister No Known Problems Brother No Known Problems Brother Heart Maternal Grandmother No Known Problems Maternal Grandfather other (bipolar) Paternal Grandmother other (bipolar) Paternal Grandfather other (Negative) Other Heart Brother 14 pericarditis Social History Tobacco Use Smoking status: Former Packs/day: 0.50 Types: Cigarettes Quit date: 04/26/2020 Years since quittin.9 Smokeless tobacco: Never Vaping Use Vaping Use: Never used Substance Use Topics Alcohol use: No Drug use: No ASSESSMENT/PLAN: 1. Close exposure to COVID-19 virus - ICD9: V01.79, ICD10: Z20.822 - COVID WITH FLUA+B, ROUTINE Prescription instructions reviewed with patient as applicable. Potential red flag symptoms discussed with the patient. Reviewed appropriate action plan to take if red flag symptoms occur. Patient agreeable to treatment plan. Katelynn Jiang APRN.VARGAS documented in this encounterUniversity Hospitals Ge[facility]08-15-2022 Instructions* Patient Instructions* Veto Wang APRN.CNP - 04/03/2022 5:15 PM EDT HEADACHE GENERAL INFORMATION: Almost everyone has a headache occasionally. Most headaches are caused by tension, eye strain, or emotional upset. Headaches can also occur with many medical illnesses. They may be a side effect of some medications. A headache that occurs without other symptoms and only lasts a few hours probably isn't a cause for concern. INSTRUCTIONS: 1. You may use bwpf-pzd-aohhigq pain medication such as acetaminophen, ibuprofen, or aspirin unlessyour doctor recommends otherwise. 2. Try some of the following measures to relieve your headache: Stretch and massage the muscles in your shoulders, neck, jaw, and scalp. Take a hot bath. Rest in a quiet, darkened room. Place a warm or cold wet cloth (whichever feels better to you) over the aching area. 3. Don't skip meals or delay meals for very long. Drink plenty of fluids. 4. Avoid alcoholic beverages and cigarette smoking. These often make a headache worse. 5. Get plenty of rest. A good night's sleep often is the best way to relieve a headache. CONTACT YOUR DOCTOR IF: 1. Your headache gets worse or lasts longer than 24 hours. 2. You develop a temperature over 100.5 F (38 C) 3. You need to take medicine to relieve headache pain more than 3 times a week. RETURN TO THE ED IF: 1. Your headache is different from any headache you ever had before, or is the worst headache of your life. 2. You feel confused or drowsy. 3. Your neck feels stiff. 4. You have a temperature of 102 F (39 C) or higher. 5. You have eye problems such as sensitivity to light or blurred or double vision. 6. You start to vomit. 7. You have difficulty walking, talking, or moving your arms or legs. documented in this encounterUniversity Hospitals Ge[facility] Center08-15-2022 History of Present illness Narrative* Veto Wang APRN.CNP - 04/03/2022 5:13 PM EDT Subjective HPI Nontoxic-appearing female presents urgent care chief complaint headache. Duration of symptoms today. Associated symptoms headache photophobia and phonophobia. Patient states woke up with a slight headache. Symptoms have progressively worsened. Rates pain 6-7 out of 10. Has used Tylenol and this has helped. History of headaches similar to this pattern. Denies any head trauma. Denies any thunderclap headache not worst headache of life. Denies any fever body aches chills cough chest pain shortnessof breath dizziness visual changes flashes light floaters decreased range of motion neck LOC or syncopal episodes or rashes. Past medical history prescription medication use allergies reviewed. Denies chance of is not breast-feeding. .Patient presents with: Headache: Possible migraine, woke like this PAST MEDICAL HISTORY Diagnosis Date Allergic rhinitis anxiety Low-lying placenta 11/18/2020 01/31/21- No longer low lying via ultrasound. Anahy Weeks APRN.CNM 11/18/20:recheck placental location in 8-12 WEEKS. Kerri Godwin MD Menarche 2-2011 NEGATIVE HISTORY OF 9-10-12 Normal Color Vision NEGATIVE MEDICAL HISTORY PAST SURGICAL HISTORY Procedure Laterality Date NEXPLANON INSERTION 05/31/2015 TONSILLECTOMY PRIMARY/SECONDARY <AGE 12 ALLERGIES Environmental [Other] MEDICATIONS PNV no.95/ferrous fum/folic ac ( ORAL) Take by mouth. albuterol HFA (PROVENTIL HFA, VENTOLIN HFA) 90 mcg/actuation inhaler Inhale 2 Puffs as instructed every 4 hours as needed. Tqesglrdixcnckt-Chnxkmskv-SO (BROMFED DM) 2-30-10 mg/5 mL syrup Take 5-10 ml po q6h prn (Patient not taking: Reported on 08/22/2021 ) FAMILY HISTORY Problem Relation Age of Onset Heart Mother other (bipolar) Father No Known Problems Sister No Known Problems Sister No Known Problems Brother No Known Problems Brother Heart Maternal Grandmother No Known Problems Maternal Grandfather other (bipolar) Paternal Grandmother other (bipolar) Paternal Grandfather other (Negative) Other Heart Brother 14 pericarditis Social History Tobacco Use Smoking status: Former Packs/day: 0.50 Types: Cigarettes Quit date: 04/26/2020 Years since quittin.9 Smokeless tobacco: Never Vaping Use Vaping Use: Never used Substance Use Topics Alcohol use: No Drug use: No BP 98/64 Pulse 72 Temp 36.8 C (98.2 F) Resp 21 Wt 52 kg (114 lb 9.6 oz) LMP 07/20/2020 (LMP Unknown) SpO2 99% BMI 19.67 kg/m Review of Systems Constitutional: Negative for chills, fever and malaise/fatigue. HENT: Negative for congestion, ear discharge, ear pain, sinus pain and sore throat. Eyes: Negative for blurred vision, pain, discharge and redness. Respiratory: Negative for cough, hemoptysis, sputum production, shortness of breath, wheezing and stridor. Cardiovascular: Negative for chest pain. Gastrointestinal: Negative for abdominal pain, diarrhea, nausea and vomiting. Musculoskeletal: Negative for myalgias. Skin: Negative for itching and rash. Neurological: Positive for headaches. Negative for dizziness. Objective Physical Exam Constitutional: General: She is not in acute distress. Appearance: She is not diaphoretic. HENT: Head: Normocephalic. Mouth/Throat: Mouth: Mucous membranes are moist. Pharynx: Oropharynx is clear. No oropharyngeal exudate or posterior oropharyngeal erythema. Eyes: Conjunctiva/sclera: Conjunctivae normal. Pupils: Pupils are equal, round, and reactive to light. Cardiovascular: Rate and Rhythm: Normal rate and regular rhythm. Heart sounds: Normal heart sounds. Pulmonary: Effort: Pulmonary effort is normal. No tachypnea, accessory muscle usage or respiratory distress. Breath sounds: Normal breath sounds. No stridor. No wheezing, rhonchi or rales. Abdominal: Palpations: Abdomen is soft. Tenderness: There is no abdominal tenderness. Musculoskeletal: Cervical back: Normal range of motion and neck supple. No rigidity or tenderness. Lymphadenopathy: Cervical: No cervical adenopathy. Skin: General: Skin is warm and dry. Neurological: General: No focal deficit present. Mental Status: She is alert and oriented to person, place, and time. Mental status is at baseline. Motor: No weakness. Coordination: Coordination normal. Gait: Gait normal. ASSESSMENT/PLAN: 1. Headache, unspecified headache type - ICD9: 784.0, ICD10: R51.9 Patient diagnosed with headache. Not worst headache of life. Normal onset. [place] subarachnoid rule0. We will treat conservatively at this time. Red flag symptoms discussed. Patient was educated on supportive therapies. Patient will follow up with primary care provider as needed. Patient was instructed to immediately proceed to emergency room for any new, worsening, or symptoms lasting longer than anticipated. The patient's clinical presentation is otherwise unremarkable at this time. Based onexam and clinical finding, the patient is stable for discharge. Plan of care was discussed with patient. Patient verbalizes understanding and agrees to plan of care. This note was generated using [employer] software. It may contain errors in wording, punctuation, or spelling. Veto Wang APRN.VARGAS documented in this encounterUniversity Hospitals Geauga [facility] Center05-25-2022 History of Present illness Narrative* Katelynn Jiang APRN.VARGAS - 01/11/2022 12:08 PM EDT CC: Patient presents with: Head Congestion: bodyaches, sore throat and left ear pain x last night HPI: Bowen Jones is a 21 year old female who presents to the office with complaint of sore throat and ear symptoms since last night. Symptoms are staying the same. Associated symptoms includes body aches. Denies fever, nausea, vomiting and diarrhea. Treatments tried include nothing so far. with no relief of symptoms. Sick contacts: yes. History of asthma, frequent episodes of bronchitis, chronic bronchitis, bronchiectasis or COPD: No Smoker: No Seasonal/environmental allergies: No The ROS is otherwise negative. The patient's pmh, medications, allergies, and past visits are reviewed. PHYSICAL EXAM: BP 98/62 Pulse 90 Temp 36.7 C (98 F) Resp 16 Wt 49.9 kg (110 lb) LMP 07/20/2020 (LMP Unknown) SpO2 99% BMI 18.88 kg/m General appearance: alert, cooperative, pleasant, in no acute distress Head: Normocephalic Eyes: EOM's intact, conjunctiva pink and moist, no icterus, sclera white, non-injected Ears: Right ear: External ear/canal- Normal, TM - clear with good landmarks. Left ear: External ear/canal- Normal, TM - clear with good landmarks Oropharynx:moderate erythema, without exudates present Heart: Negative. RRR without obvious murmur, gallop, or rubs. No ectopy. Lungs: clear to auscultation, without rales or wheeze, good air exchange PAST MEDICAL HISTORY Diagnosis Date Allergic rhinitis anxiety Low-lying placenta 11/18/2020 01/31/21- No longer low lying via ultrasound. Anahy Weeks APRN.CNM 11/18/20:recheck placental location in 8-12 WEEKS. Kerri Godwin MD Menarche 2-2011 NEGATIVE HISTORY OF 9-10-12 Normal Color Vision NEGATIVE MEDICAL HISTORY PAST SURGICAL HISTORY Procedure Laterality Date NEXPLANON INSERTION 05/31/2015 TONSILLECTOMY PRIMARY/SECONDARY <AGE 12 ALLERGIES Environmental [Other] MEDICATIONS Jbwpmjssmfgpdqt-Gcietrfwe-NH (BROMFED DM) 2-30-10 mg/5 mL syrup Take 5-10 ml po q6h prn PNV no.95/ferrous fum/folic ac ( ORAL) Take by mouth. albuterol HFA (PROVENTIL HFA, VENTOLIN HFA) 90 mcg/actuation inhaler Inhale 2 Puffs as instructed every 4 hours as needed. FAMILY HISTORY Problem Relation Age of Onset Heart Mother other (bipolar) Father No Known Problems Sister No Known Problems Sister No Known Problems Brother No Known Problems Brother Heart Maternal Grandmother No Known Problems Maternal Grandfather other (bipolar) Paternal Grandmother other (bipolar) Paternal Grandfather other (Negative) Other Heart Brother 14 pericarditis Social History Tobacco Use Smoking status: Former Smoker Packs/day: 0.50 Types: Cigarettes Quit date: 04/26/2020 Years since quittin.7 Smokeless tobacco: Never Used Vaping Use Vaping Use: Never used Substance Use Topics Alcohol use: No Drug use: No ASSESSMENT/PLAN: 1. Sore throat - ICD9: 462, ICD10: J02.9 (primary diagnosis) - COVID WITH FLUA+B, ROUTINE - STREP A MOLECULAR (POC) - negative 2. Close exposure to COVID-19 virus - ICD9: V01.79, ICD10: Z20.822 - COVID WITH FLUA+B, ROUTINE Potential red flag symptoms discussed with the patient. Reviewed appropriate action plan to take ifred flag symptoms occur. Patient agreeable to treatment plan. Katelynn Jiang APRN.CUSTODIAL SERVICES MANAGER documented in this encounterUniversity Hospitals Geauga [facility] Center04-01-2021 History of Past illness Narrative* Problem Noted Date Resolved Date Low-lying placenta 11/18/2020 02/02/2021 Overview: 01/31/21- No longer low lying via ultrasound. Anahy Weeks APRN.CN 11/18/20:recheck placental location in 8-12 WEEKS. Kerri Godwin MD Benign gestational thrombocytopenia, antepartum 12/13/2018 08/26/2020 Overview: 02/24/19: normal 28 wks- 165 Kerri Godwin MD 12/13/18 Plt's 143 at NOB. Repeat at 28 wks and closer to delivery. SW Quit smoking 08/29/2018 08/26/2020 Overview: 06/29/2019Pt recently quit smoking 3 days ago. Discussed risks of smoking during and advised pt to continue not smoking. TKRN Patient request for diagnostic testing 9 03/10/2019 Overview: 08/29/2018 Patient desires nuchal ultrasaound. Declines genetic carrier screening testing. TKRN Encounter for test, result positive 08/26/2020 Overview: 08/29/18 - patient needs PNB & NT ordered once viable IUP established - Elizabeth Jiang MD Chronic nasal congestion 03/08/2012 019 documented as of this encounter (statuses as of 01/11/2022) [facility]04-01-2021 History of Past illness Narrative* Problem Noted Date Resolved Date Low-lying placenta 11/18/2020 02/02/2021 Overview: 01/31/21- No longer low lying via ultrasound. Anahy Weeks, CEE.CNM 11/18/20:recheck placental location in 8-12 WEEKS. Kerri Godwin MD Benign gestational thrombocytopenia, antepartum 12/13/2018 08/26/2020 Overview: 02/24/19: normal 28 wks- 165 Kerri Godwin MD 12/13/18 Plt's 143 at NOB. Repeat at 28 wks and closer to delivery. SW Quit smoking 08/29/2018 08/26/2020 Overview: 06/29/2019Pt recently quit smoking 3 days ago. Discussed risks of smoking during and advised pt to continue not smoking. TKRN Patient request for diagnostic testing 9 03/10/2019 Overview: 08/29/2018 Patient desires nuchal ultrasaound. Declines genetic carrier screening testing. TKRN Encounter for test, result positive 08/26/2020 Overview: 08/29/18 - patient needs PNB & NT ordered once viable IUP established - Elizabeth Jiang MD Chronic nasal congestion 03/08/2012 019 documented as of this encounter (statuses as of 04/03/2022) [facility]04-01-2021 History of Past illness Narrative* Problem Noted Date Resolved Date Low-lying placenta 11/18/2020 02/02/2021 Overview: 01/31/21- No longer low lying via ultrasound. Anahy Weeks APRN.JESSI 11/18/20:recheck placental location in 8-12 WEEKS. Kerri Godwin MD Benign gestational thrombocytopenia, antepartum 12/13/2018 08/26/2020 Overview: 02/24/19: normal 28 wks- 165 Kerri Godwin MD 12/13/18 Plt's 143 at NOB. Repeat at 28 wks and closer to delivery. SW Quit smoking 08/29/2018 08/26/2020 Overview: 06/29/2019Pt recently quit smoking 3 days ago. Discussed risks of smoking during and advised pt to continue not smoking. TKRN Patient request for diagnostic testing 9 03/10/2019 Overview: 08/29/2018 Patient desires nuchal ultrasaound. Declines genetic carrier screening testing. TKRN Encounter for test, result positive 08/26/2020 Overview: 08/29/18 - patient needs PNB & NT ordered once viable IUP established - Elizabeth Jiang MD Chronic nasal congestion 03/08/2012 019 documented as of this encounter (statuses as of 04/05/2022) [facility]04-01-2021 History of Past illness Narrative* Problem Noted Date Resolved Date Low-lying placenta 11/18/2020 02/02/2021 Overview: 01/31/21- No longer low lying via ultrasound. Anahy Weeks APRN.JESSI 11/18/20:recheck placental location in 8-12 WEEKS. Kerri Godwin MD Benign gestational thrombocytopenia, antepartum 12/13/2018 08/26/2020 Overview: 02/24/19: normal 28 wks- 165 Kerri Godwin MD 12/13/18 Plt's 143 at NOB. Repeat at 28 wks and closer to delivery. SW Quit smoking 08/29/2018 08/26/2020 Overview: 06/29/2019Pt recently quit smoking 3 days ago. Discussed risks of smoking during and advised pt to continue not smoking. TKRN Patient request for diagnostic testing 9 03/10/2019 Overview: 08/29/2018 Patient desires nuchal ultrasaound. Declines genetic carrier screening testing. TKRN Encounter for test, result positive 08/26/2020 Overview: 08/29/18 - patient needs PNB & NT ordered once viable IUP established - Elizabeth Jiang MD Chronic nasal congestion 03/08/2012 019 documented as of this encounter (statuses as of 04/28/2022) [place] [address]-01-2021 History of Past illness Narrative* Problem Noted Date Resolved Date Low-lying placenta 11/18/2020 02/02/2021 Overview: 01/31/21- No longer low lying via ultrasound. Anahy Weeks APRN.[facility] 11/18/20:recheck placental location in 8-12 WEEKS. Kerri Godwin MD Benign gestational thrombocytopenia, antepartum 12/13/2018 08/26/2020 Overview: 02/24/19: normal 28 wks- 165 Kerri Godwin MD 12/13/18 Plt's 143 at NOB. Repeat at 28 wks and closer to delivery. SW Quit smoking 08/29/2018 08/26/2020 Overview: 06/29/2019Pt recently quit smoking 3 days ago. Discussed risks of smoking during and advised pt to continue not smoking. TKRN Patient request for diagnostic testing 9 03/10/2019 Overview: 08/29/2018 Patient desires nuchal ultrasaound. Declines genetic carrier screening testing. TKRN Encounter for test, result positive 08/26/2020 Overview: 08/29/18 - patient needs PNB & NT ordered once viable IUP established - Elizabeth Jiang MD Chronic nasal congestion 03/08/2012 019 documented as of this encounter (statuses as of 05/01/2022) [facility]04-01-2021 History of Past illness Narrative* Problem Noted Date Resolved Date Low-lying placenta 11/18/2020 02/02/2021 Overview: 01/31/21- No longer low lying via ultrasound. Anahy Weeks, CEE.CNM 11/18/20:recheck placental location in 8-12 WEEKS. Kerri Godwin MD Benign gestational thrombocytopenia, antepartum 12/13/2018 08/26/2020 Overview: 02/24/19: normal 28 wks- 165 Kerri Godwin MD 12/13/18 Plt's 143 at NOB. Repeat at 28 wks and closer to delivery. SW Quit smoking 08/29/2018 08/26/2020 Overview: 06/29/2019Pt recently quit smoking 3 days ago. Discussed risks of smoking during and advised pt to continue not smoking. TKRN Patient request for diagnostic testing 9 03/10/2019 Overview: 08/29/2018 Patient desires nuchal ultrasaound. Declines genetic carrier screening testing. TKRN Encounter for test, result positive 08/26/2020 Overview: 08/29/18 - patient needs PNB & NT ordered once viable IUP established - Elizabeth Jiang MD Chronic nasal congestion 03/08/2012 019 documented as of this encounter (statuses as of 06/20/2022) [facility]04-01-2021 History of Past illness Narrative* Problem Noted Date Resolved Date Low-lying placenta 11/18/2020 02/02/2021 Overview: 01/31/21- No longer low lying via ultrasound. Anahy Weeks APRN.CNM 11/18/20:recheck placental location in 8-12 WEEKS. Kerri Godwin MD Benign gestational thrombocytopenia, antepartum 12/13/2018 08/26/2020 Overview: 02/24/19: normal 28 wks- 165 Kerri Godwin MD 12/13/18 Plt's 143 at NOB. Repeat at 28 wks and closer to delivery. SW Quit smoking 08/29/2018 08/26/2020 Overview: 06/29/2019Pt recently quit smoking 3 days ago. Discussed risks of smoking during and advised pt to continue not smoking. TKRN Patient request for diagnostic testing 9 03/10/2019 Overview: 08/29/2018 Patient desires nuchal ultrasaound. Declines genetic carrier screening testing. TKRN Encounter for test, result positive 08/26/2020 Overview: 08/29/18 - patient needs PNB & NT ordered once viable IUP established - Elizabeth Jiang MD Chronic nasal congestion 03/08/2012 019 documented as of this encounter (statuses as of 06/21/2022) [facility]04-01-2021 History of Past illness Narrative* Problem Noted Date Resolved Date Low-lying placenta 11/18/2020 02/02/2021 Overview: 01/31/21- No longer low lying via ultrasound. Anahy Weeks APRN.CNM 11/18/20:recheck placental location in 8-12 WEEKS. Kerri Godwin MD Benign gestational thrombocytopenia, antepartum 12/13/2018 08/26/2020 Overview: 02/24/19: normal 28 wks- 165 Kerri Godwin MD 12/13/18 Plt's 143 at NOB. Repeat at 28 wks and closer to delivery. SW Quit smoking 08/29/2018 08/26/2020 Overview: 06/29/2019Pt recently quit smoking 3 days ago. Discussed risks of smoking during and advised pt to continue not smoking. TKRN Patient request for diagnostic testing 9 03/10/2019 Overview: 08/29/2018 Patient desires nuchal ultrasaound. Declines genetic carrier screening testing. TKRN Encounter for test, result positive 08/26/2020 Overview: 08/29/18 - patient needs PNB & NT ordered once viable IUP established - Elizabeth Jiang MD Chronic nasal congestion 03/08/2012 019 documented as of this encounter (statuses as of 06/22/2022) [facility]04-01-2021 History of Past illness Narrative* Problem Noted Date Resolved Date Low-lying placenta 11/18/2020 02/02/2021 Overview: 01/31/21- No longer low lying via ultrasound. Anahy Weeks APRN.CNM 11/18/20:recheck placental location in 8-12 WEEKS. Kerri Godwin MD Benign gestational thrombocytopenia, antepartum 12/13/2018 08/26/2020 Overview: 02/24/19: normal 28 wks- 165 Kerri Godwin MD 12/13/18 Plt's 143 at NOB. Repeat at 28 wks and closer to delivery. SW Quit smoking 08/29/2018 08/26/2020 Overview: 06/29/2019Pt recently quit smoking 3 days ago. Discussed risks of smoking during and advised pt to continue not smoking. TKRN Patient request for diagnostic testing 9 03/10/2019 Overview: 08/29/2018 Patient desires nuchal ultrasaound. Declines genetic carrier screening testing. TKRN Encounter for test, result positive 08/26/2020 Overview: 08/29/18 - patient needs PNB & NT ordered once viable IUP established - Elizabeth Jiang MD Chronic nasal congestion 03/08/2012 019 documented as of this encounter (statuses as of 09/27/2022) [facility]04-01-2021 History of Past illness Narrative* Problem Noted Date Resolved Date Low-lying placenta 11/18/2020 02/02/2021 Overview: 01/31/21- No longer low lying via ultrasound. Anahy Weeks, CEE.CNM 11/18/20:recheck placental location in 8-12 WEEKS. Kerri Godwin MD Benign gestational thrombocytopenia, antepartum 12/13/2018 08/26/2020 Overview: 02/24/19: normal 28 wks- 165 Kerri Godwin MD 12/13/18 Plt's 143 at NOB. Repeat at 28 wks and closer to delivery. SW Quit smoking 08/29/2018 08/26/2020 Overview: 06/29/2019Pt recently quit smoking 3 days ago. Discussed risks of smoking during and advised pt to continue not smoking. TKRN Patient request for diagnostic testing 9 03/10/2019 Overview: 08/29/2018 Patient desires nuchal ultrasaound. Declines genetic carrier screening testing. TKRN Encounter for test, result positive 08/26/2020 Overview: 08/29/18 - patient needs PNB & NT ordered once viable IUP established - Elizabeth Jiang MD Chronic nasal congestion 03/08/2012 019 documented as of this encounter (statuses as of 10/17/2022) [facility]04-01-2021 History of Past illness Narrative* Problem Noted Date Resolved Date Low-lying placenta 11/18/2020 02/02/2021 Overview: 01/31/21- No longer low lying via ultrasound. Anahy Weeks APRN.CNM 11/18/20:recheck placental location in 8-12 WEEKS. Kerri Godwin MD Benign gestational thrombocytopenia, antepartum 12/13/2018 08/26/2020 Overview: 02/24/19: normal 28 wks- 165 Kerri Godwin MD 12/13/18 Plt's 143 at NOB. Repeat at 28 wks and closer to delivery. SW Quit smoking 08/29/2018 08/26/2020 Overview: 06/29/2019Pt recently quit smoking 3 days ago. Discussed risks of smoking during and advised pt to continue not smoking. TKRN Patient request for diagnostic testing 9 03/10/2019 Overview: 08/29/2018 Patient desires nuchal ultrasaound. Declines genetic carrier screening testing. TKRN Encounter for test, result positive 08/26/2020 Overview: 08/29/18 - patient needs PNB & NT ordered once viable IUP established - Elizabeth Jiang MD Chronic nasal congestion 03/08/2012 019 documented as of this encounter (statuses as of 11/03/2022) [facility]04-01-2021 History of Past illness Narrative* Problem Noted Date Resolved Date Low-lying placenta 11/18/2020 02/02/2021 Overview: 01/31/21- No longer low lying via ultrasound. Anahy Weeks APRN.[facility] 11/18/20:recheck placental location in 8-12 WEEKS. Kerri Godwin MD Benign gestational thrombocytopenia, antepartum 12/13/2018 08/26/2020 Overview: 02/24/19: normal 28 wks- 165 Kerri Godwin MD 12/13/18 Plt's 143 at NOB. Repeat at 28 wks and closer to delivery. SW Quit smoking 08/29/2018 08/26/2020 Overview: 06/29/2019Pt recently quit smoking 3 days ago. Discussed risks of smoking during and advised pt to continue not smoking. TKRN Patient request for diagnostic testing 9 03/10/2019 Overview: 08/29/2018 Patient desires nuchal ultrasaound. Declines genetic carrier screening testing. TKRN Encounter for test, result positive 08/26/2020 Overview: 08/29/18 - patient needs PNB & NT ordered once viable IUP established - Elizabeth Jiang MD Chronic nasal congestion 03/08/2012 019 documented as of this encounter (statuses as of 11/08/2022) [facility]04-01-2021 History of Past illness Narrative* Problem Noted Date Resolved Date Low-lying placenta 11/18/2020 02/02/2021 Overview: 01/31/21- No longer low lying via ultrasound. Anahy Weeks, CEE.CNM 11/18/20:recheck placental location in 8-12 WEEKS. Kerri Godwin MD Benign gestational thrombocytopenia, antepartum 12/13/2018 08/26/2020 Overview: 02/24/19: normal 28 wks- 165 Kerri Godwin MD 12/13/18 Plt's 143 at NOB. Repeat at 28 wks and closer to delivery. SW Quit smoking 08/29/2018 08/26/2020 Overview: 06/29/2019Pt recently quit smoking 3 days ago. Discussed risks of smoking during and advised pt to continue not smoking. TKRN Patient request for diagnostic testing 9 03/10/2019 Overview: 08/29/2018 Patient desires nuchal ultrasaound. Declines genetic carrier screening testing. TKRN Encounter for test, result positive 08/26/2020 Overview: 08/29/18 - patient needs PNB & NT ordered once viable IUP established - Elizabeth Jiang MD Chronic nasal congestion 03/08/2012 019 documented as of this encounter (statuses as of 11/28/2022) [facility]04-01-2021 History of Past illness Narrative* Problem Noted Date Resolved Date Low-lying placenta 11/18/2020 02/02/2021 Overview: 01/31/21- No longer low lying via ultrasound. Anahy Weeks, CEE.CNM 11/18/20:recheck placental location in 8-12 WEEKS. Kerri Godwin MD Benign gestational thrombocytopenia, antepartum 12/13/2018 08/26/2020 Overview: 02/24/19: normal 28 wks- 165 Kerri Godwin MD 12/13/18 Plt's 143 at NOB. Repeat at 28 wks and closer to delivery. SW Quit smoking 08/29/2018 08/26/2020 Overview: 06/29/2019Pt recently quit smoking 3 days ago. Discussed risks of smoking during and advised pt to continue not smoking. TKRN Patient request for diagnostic testing 9 03/10/2019 Overview: 08/29/2018 Patient desires nuchal ultrasaound. Declines genetic carrier screening testing. TKRN Encounter for test, result positive 08/26/2020 Overview: 08/29/18 - patient needs PNB & NT ordered once viable IUP established - Elizabeth Jiang MD Chronic nasal congestion 03/08/2012 019 documented as of this encounter (statuses as of 12/02/2022) [facility]04-01-2021 History of Past illness Narrative* Problem Noted Date Resolved Date Low-lying placenta 11/18/2020 02/02/2021 Overview: 01/31/21- No longer low lying via ultrasound. Anahy Weeks APRN.[facility] 11/18/20:recheck placental location in 8-12 WEEKS. Kerri Godwin MD Benign gestational thrombocytopenia, antepartum 12/13/2018 08/26/2020 Overview: 02/24/19: normal 28 wks- 165 Kerri Godwin MD 12/13/18 Plt's 143 at NOB. Repeat at 28 wks and closer to delivery. SW Quit smoking 08/29/2018 08/26/2020 Overview: 06/29/2019Pt recently quit smoking 3 days ago. Discussed risks of smoking during and advised pt to continue not smoking. TKRN Patient request for diagnostic testing 9 03/10/2019 Overview: 08/29/2018 Patient desires nuchal ultrasaound. Declines genetic carrier screening testing. TKRN Encounter for test, result positive 08/26/2020 Overview: 08/29/18 - patient needs PNB & NT ordered once viable IUP established - Elizabeth Jiang MD Chronic nasal congestion 03/08/2012 019 documented as of this encounter (statuses as of 12/07/2022) [facility]04-01-2021 History of Past illness Narrative* Problem Noted Date Resolved Date Low-lying placenta 11/18/2020 02/02/2021 Overview: 01/31/21- No longer low lying via ultrasound. Anahy Weeks APRN.[facility] 11/18/20:recheck placental location in 8-12 WEEKS. Kerri Godwin MD Benign gestational thrombocytopenia, antepartum 12/13/2018 08/26/2020 Overview: 02/24/19: normal 28 wks- 165 Kerri Godwin MD 12/13/18 Plt's 143 at NOB. Repeat at 28 wks and closer to delivery. SW Quit smoking 08/29/2018 08/26/2020 Overview: 06/29/2019Pt recently quit smoking 3 days ago. Discussed risks of smoking during and advised pt to continue not smoking. TKRN Patient request for diagnostic testing 9 03/10/2019 Overview: 08/29/2018 Patient desires nuchal ultrasaound. Declines genetic carrier screening testing. TKRN Encounter for test, result positive 08/26/2020 Overview: 08/29/18 - patient needs PNB & NT ordered once viable IUP established - Elizabeth Jiang MD Chronic nasal congestion 03/08/2012 019 documented as of this encounter (statuses as of 12/18/2022) [facility]04-01-2021 History of Past illness Narrative* Problem Noted Date Resolved Date Low-lying placenta 11/18/2020 02/02/2021 Overview: 01/31/21- No longer low lying via ultrasound. Anahy Weeks APRN.CN 11/18/20:recheck placental location in 8-12 WEEKS. Kerri Godwin MD Benign gestational thrombocytopenia, antepartum 12/13/2018 08/26/2020 Overview: 02/24/19: normal 28 wks- 165 Kerri Godwin MD 12/13/18 Plt's 143 at NOB. Repeat at 28 wks and closer to delivery. SW Quit smoking 08/29/2018 08/26/2020 Overview: 06/29/2019Pt recently quit smoking 3 days ago. Discussed risks of smoking during and advised pt to continue not smoking. TKRN Patient request for diagnostic testing 9 03/10/2019 Overview: 08/29/2018 Patient desires nuchal ultrasaound. Declines genetic carrier screening testing. TKRN Encounter for test, result positive 08/26/2020 Overview: 08/29/18 - patient needs PNB & NT ordered once viable IUP established - Elizabeth Jiang MD Chronic nasal congestion 03/08/2012 019 documented as of this encounter (statuses as of 12/20/2022) [facility]04-01-2021 History of Past illness Narrative* Problem Noted Date Resolved Date Low-lying placenta 11/18/2020 02/02/2021 Overview: 01/31/21- No longer low lying via ultrasound. Anahy Weeks, CEE.CNM 11/18/20:recheck placental location in 8-12 WEEKS. Kerri Godwin MD Benign gestational thrombocytopenia, antepartum 12/13/2018 08/26/2020 Overview: 02/24/19: normal 28 wks- 165 Kerri Godwin MD 12/13/18 Plt's 143 at NOB. Repeat at 28 wks and closer to delivery. SW Quit smoking 08/29/2018 08/26/2020 Overview: 06/29/2019Pt recently quit smoking 3 days ago. Discussed risks of smoking during and advised pt to continue not smoking. TKRN Patient request for diagnostic testing 9 03/10/2019 Overview: 08/29/2018 Patient desires nuchal ultrasaound. Declines genetic carrier screening testing. TKRN Encounter for test, result positive 08/26/2020 Overview: 08/29/18 - patient needs PNB & NT ordered once viable IUP established - Elizabeth Jiang MD Chronic nasal congestion 03/08/2012 019 documented as of this encounter (statuses as of 12/22/2022) [facility]04-01-2021 History of Past illness Narrative* Problem Noted Date Resolved Date Low-lying placenta 11/18/2020 02/02/2021 Overview: 01/31/21- No longer low lying via ultrasound. Anahy Weeks APRN.CNM 11/18/20:recheck placental location in 8-12 WEEKS. Kerri Godwin MD Benign gestational thrombocytopenia, antepartum 12/13/2018 08/26/2020 Overview: 02/24/19: normal 28 wks- 165 Kerri Godwin MD 12/13/18 Plt's 143 at NOB. Repeat at 28 wks and closer to delivery. SW Quit smoking 08/29/2018 08/26/2020 Overview: 06/29/2019Pt recently quit smoking 3 days ago. Discussed risks of smoking during and advised pt to continue not smoking. TKRN Patient request for diagnostic testing 9 03/10/2019 Overview: 08/29/2018 Patient desires nuchal ultrasaound. Declines genetic carrier screening testing. TKRN Encounter for test, result positive 08/26/2020 Overview: 08/29/18 - patient needs PNB & NT ordered once viable IUP established - Elizabeth Jiang MD Chronic nasal congestion 03/08/2012 019 documented as of this encounter (statuses as of 01/19/2023) [facility]04-01-2021 History of Past illness Narrative* Problem Noted Date Diagnosed Date Resolved Date Low-lying placenta 11/18/2020 Overview: 01/31/21- No longer low lying via ultrasound. Anahy Weeks APRN.CNM 11/18/20:recheck placental location in 8-12 WEEKS. Kerri Godwin MD Benign gestational thrombocy [place], antepartum 12/13/2018 08/26/2020 Overview: 02/24/19: normal 28 wks- 165 Kerri Godwin MD 12/13/18 Plt's 143 at NOB. Repeat at 28 wks and closer to delivery. SW Quit smoking 08/29/2018 08/26/2020 Overview: 06/29/2019Pt recently quit smoking 3 days ago. Discussed risks of smoking during and advised pt to continue not smoking. TKRN Patient request for diagnostic testing 08/29/2018 03/10/2019 Overview: 08/29/2018 Patient desires nuchal ultrasaound. Declines genetic carrier screening testing. TKRN Encounter for test, result positive 08/29/19 19 08/26/2020 Overview: 08/29/18 - patient needs PNB & NT ordered once viable IUP established - Elizabeth Jiang MD Chronic nasal congestion 03/08/2012 documented as of this encounter (statuses as of 04/14/2023) [facility]04-01-2021 History of Past illness Narrative* Problem Noted Date Diagnosed Date Resolved Date Low-lying placenta 11/18/2020 Overview: 01/31/21- No longer low lying via ultrasound. Anahy Weeks APRN.[facility] 11/18/20:recheck placental location in 8-12 WEEKS. Kerri Godwin MD Benign gestational thrombocy [place], antepartum 12/13/2018 08/26/2020 Overview: 02/24/19: normal 28 wks- 165 Kerri Godwin MD 12/13/18 Plt's 143 at NOB. Repeat at 28 wks and closer to delivery. SW Quit smoking 08/29/2018 08/26/2020 Overview: 06/29/2019Pt recently quit smoking 3 days ago. Discussed risks of smoking during and advised pt to continue not smoking. TKRN Patient request for diagnostic testing 08/29/2018 03/10/2019 Overview: 08/29/2018 Patient desires nuchal ultrasaound. Declines genetic carrier screening testing. TKRN Encounter for test, result positive 08/29/19 19 08/26/2020 Overview: 08/29/18 - patient needs PNB & NT ordered once viable IUP established - Elizabeth Jiang MD Chronic nasal congestion 03/08/2012 documented as of this encounter (statuses as of 04/18/2023) [facility]04-01-2021 History of Past illness Narrative* Problem Noted Date Diagnosed Date Resolved Date Low-lying placenta 11/18/2020 Overview: 01/31/21- No longer low lying via ultrasound. Anahy Weeks APRN.CNM 11/18/20:recheck placental location in 8-12 WEEKS. Kerri Godwin MD Benign gestational thrombocy topenia, antepartum 12/13/2018 08/26/2020 Overview: 02/24/19: normal 28 wks- 165 Kerri Godwin MD 12/13/18 Plt's 143 at NOB. Repeat at 28 wks and closer to delivery. SW Quit smoking 08/29/2018 08/26/2020 Overview: 06/29/2019Pt recently quit smoking 3 days ago. Discussed risks of smoking during and advised pt to continue not smoking. TKRN Patient request for diagnostic testing 08/29/2018 03/10/2019 Overview: 08/29/2018 Patient desires nuchal ultrasaound. Declines genetic carrier screening testing. TKRN Encounter for test, result positive 08/29/19 19 08/26/2020 Overview: 08/29/18 - patient needs PNB & NT ordered once viable IUP established - Elizabeth Jiang MD Chronic nasal congestion 03/08/2012 documented as of this encounter (statuses as of 04/18/2023) [facility]04[facility]21 History of Past illness Narrative* Problem Noted Date Diagnosed Date Resolved Date Low-lying placenta 11/18/2020 Overview: 01/31/21- No longer low lying via ultrasound. Anahy Weeks, BUSINESS DEPARTMENT CH[employer]IR.CNM 11/18/20:recheck placental location in 8-12 WEEKS. Kerri Godwin MD Benign gestational thrombocy topenia, antepartum 12/13/2018 08/26/2020 Overview: 02/24/19: normal 28 wks- 165 Kerri Godwin MD 12/13/18 Plt's 143 at NOB. Repeat at 28 wks and closer to delivery. SW Quit smoking 08/29/2018 08/26/2020 Overview: 06/29/2019Pt recently quit smoking 3 days ago. Discussed risks of smoking during and advised pt to continue not smoking. TKRN Patient request for diagnostic testing 08/29/2018 03/10/2019 Overview: 08/29/2018 Patient desires nuchal ultrasaound. Declines genetic carrier screening testing. TKRN Encounter for test, result positive 08/29/1908/26/2020 Overview: 08/29/18 - patient needs PNB & NT ordered once viable IUP established - Elizabeth Jiang MD Chronic nasal congestion 03/08/2012 documented as of this encounter (statuses as of 04/26/2023) [facility]04-[facility]21 History of Past illness Narrative* Problem Noted Date Diagnosed Date Resolved Date Low-lying placenta 11/18/2020 Overview: 01/31/21- No longer low lying via ultrasound. Anahy Weeks APRN.MIRIAMM 11/18/20:recheck placental location in 8-12 WEEKS. Kerri Godwin MD Benign gestational thrombocy [place], antepartum 12/13/2018 08/26/2020 Overview: 02/24/19: normal 28 wks- 165 Kerri Godwin MD 12/13/18 Plt's 143 at NOB. Repeat at 28 wks and closer to delivery. SW Quit smoking 08/29/2018 08/26/2020 Overview: 06/29/2019Pt recently quit smoking 3 days ago. Discussed risks of smoking during and advised pt to continue not smoking. TKRN Patient request for diagnostic testing 08/29/2018 03/10/2019 Overview: 08/29/2018 Patient desires nuchal ultrasaound. Declines genetic carrier screening testing. TKRN Encounter for test, result positive 08/29/19 19 08/26/2020 Overview: 08/29/18 - patient needs PNB & NT ordered once viable IUP established - Elizabeth Jiang MD Chronic nasal congestion 03/08/2012 documented as of this encounter (statuses as of 05/04/2023) [facility] History of Past illness Narrative* Problem Noted Date Diagnosed Date Resolved Date Low-lying placenta 11/18/2020 Overview: 01/31/21- No longer low lying via ultrasound. Anahy Weeks APRN.JESSI 11/18/20:recheck placental location in 8-12 WEEKS. Kerri Godwin MD Benign gestational thrombocy [place], antepartum 12/13/2018 08/26/2020 Overview: 02/24/19: normal 28 wks- 165 Kerri Godwin MD 12/13/18 Plt's 143 at NOB. Repeat at 28 wks and closer to delivery. SW Quit smoking 08/29/2018 08/26/2020 Overview: 06/29/2019Pt recently quit smoking 3 days ago. Discussed risks of smoking during and advised pt to continue not smoking. TKRN Patient request for diagnostic testing 08/29/2018 03/10/2019 Overview: 08/29/2018 Patient desires nuchal ultrasaound. Declines genetic carrier screening testing. TKRN Encounter for test, result positive 08/29/19 19 08/26/2020 Overview: 08/29/18 - patient needs PNB & NT ordered once viable IUP established - Elizabeth Jiang MD Chronic nasal congestion 03/08/2012 documented as of this encounter (statuses as of 07/15/2023) [facility] History of Past illness Narrative* Problem Noted Date Diagnosed Date Resolved Date Low-lying placenta 11/18/2020 Overview: 01/31/21- No longer low lying via ultrasound. Anahy Weeks APRN.CN 11/18/20:recheck placental location in 8-12 WEEKS. Kerri Godwin MD Benign gestational thrombocy topenia, antepartum 12/13/2018 08/26/2020 Overview: 02/24/19: normal 28 wks- 165 Kerri Godwin MD 12/13/18 Plt's 143 at NOB. Repeat at 28 wks and closer to delivery. SW Quit smoking 08/29/2018 08/26/2020 Overview: 06/29/2019Pt recently quit smoking 3 days ago. Discussed risks of smoking during and advised pt to continue not smoking. TKRN Patient request for diagnostic testing 08/29/2018 03/10/2019 Overview: 08/29/2018 Patient desires nuchal ultrasaound. Declines genetic carrier screening testing. TKRN Encounter for test, result positive 08/29/19 19 08/26/2020 Overview: 08/29/18 - patient needs PNB & NT ordered once viable IUP established - Elizabeth Jiang MD Chronic nasal congestion 03/08/2012 documented as of this encounter (statuses as of 07/17/2023) [facility] History of Past illness Narrative* Problem Noted Date Diagnosed Date Resolved Date Low-lying placenta 11/18/2020 Overview: 01/31/21- No longer low lying via ultrasound. Anahy Weeks, CEE.CNM 11/18/20:recheck placental location in 8-12 WEEKS. Kerri Godiwn MD Benign gestational thrombocy topenia, antepartum 12/13/2018 08/26/2020 Overview: 02/24/19: normal 28 wks- 165 Kerri Godwin MD 12/13/18 Plt's 143 at NOB. Repeat at 28 wks and closer to delivery. SW Quit smoking 08/29/2018 08/26/2020 Overview: 06/29/2019Pt recently quit smoking 3 days ago. Discussed risks of smoking during and advised pt to continue not smoking. TKRN Patient request for diagnostic testing 08/29/2018 03/10/2019 Overview: 08/29/2018 Patient desires nuchal ultrasaound. Declines genetic carrier screening testing. TKRN Encounter for test, result positive 08/29/19 19 08/26/2020 Overview: 08/29/18 - patient needs PNB & NT ordered once viable IUP established - Elizabeth Jiang MD Chronic nasal congestion 03/08/2012 documented as of this encounter (statuses as of 10/31/2023) [facility] History of Past illness Narrative* Problem Noted Date Diagnosed Date Resolved Date Low-lying placenta 11/18/2020 Overview: 01/31/21- No longer low lying via ultrasound. Anahy Weeks APRN.MIRIAMM 11/18/20:recheck placental location in 8-12 WEEKS. Kerri Godwin MD Benign gestational thrombocy topenia, antepartum 12/13/2018 08/26/2020 Overview: 02/24/19: normal 28 wks- 165 Kerri Godwin MD 12/13/18 Plt's 143 at NOB. Repeat at 28 wks and closer to delivery. SW Quit smoking 08/29/2018 08/26/2020 Overview: 06/29/2019Pt recently quit smoking 3 days ago. Discussed risks of smoking during and advised pt to continue not smoking. TKRN Patient request for diagnostic testing 08/29/2018 03/10/2019 Overview: 08/29/2018 Patient desires nuchal ultrasaound. Declines genetic carrier screening testing. TKRN Encounter for test, result positive 08/29/1908/26/2020 Overview: 08/29/18 - patient needs PNB & NT ordered once viable IUP established - Elizabeth Jiang MD Chronic nasal congestion 03/08/2012 documented as of this encounter (statuses as of 11/01/2023) [facility] History of Past illness Narrative* Problem Noted Date Diagnosed Date Resolved Date Low-lying placenta 11/18/2020 Overview: 01/31/21- No longer low lying via ultrasound. Anahy Weeks APRN.MIRIAMM 11/18/20:recheck placental location in 8-12 WEEKS. Kerri Godwin MD Benign gestational thrombocy topenia, antepartum 12/13/2018 08/26/2020 Overview: 02/24/19: normal 28 wks- 165 Kerri Godwin MD 12/13/18 Plt's 143 at NOB. Repeat at 28 wks and closer to delivery. SW Quit smoking 08/29/2018 08/26/2020 Overview: 06/29/2019Pt recently quit smoking 3 days ago. Discussed risks of smoking during and advised pt to continue not smoking. TKRN Patient request for diagnostic testing 08/29/2018 03/10/2019 Overview: 08/29/2018 Patient desires nuchal ultrasaound. Declines genetic carrier screening testing. TKRN Encounter for test, result positive 08/29/1908/26/2020 Overview: 08/29/18 - patient needs PNB & NT ordered once viable IUP established - Elizabeth Jiang MD Chronic nasal congestion 03/08/2012 documented as of this encounter (statuses as of 11/02/2023) [facility] No data available for this section [facility] Evaluation note* Diagnosis Sore throat- Primary Acute pharyngitis Close exposure to COVID-19 virus documented in this encounter [facility] noteNo assessment information availableWOur [facility] Work Phone: [facility]* Diagnosis Onset Date Resolution Status Umbilical hernia without obstruction or gangrene [facility] Work Phone: Evaluation note* Diagnosis Onset Date Resolution Status Umbilical hernia without obstruction or gangrene acute Umbilical hernia without obstruction or gangrene [facility] Work Phone: Evaluation note* Diagnosis Headache, unspecified headache type- Primary documented in this encounter [facility] note* Diagnosis Close exposure to COVID-19 virus- Primary documented in this encounter [facility] note* Diagnosis Upper respiratory symptom- Primary Other symptoms involving respiratory system and chest Suspected COVID-19 virus infection Viral illness Unspecified viral infection, in conditions classified elsewhere and of unspecified site documented in this encounter [facility] note* Diagnosis Viral illness- Primary Unspecified viral infection, in conditions classified elsewhere and of unspecified site Sore throat Acute pharyngitis Acute cough Wheezing documented in this encounter [facility] note* Diagnosis Viral illness- Primary Unspecified viral infection, in conditions classified elsewhere and of unspecified site documented in this encounter [facility] note* Diagnosis Sore throat- Primary Acute pharyngitis URI, acute Acute upper respiratory infections of unspecified site documented in this encounter [facility] note* Diagnosis Acute pain of left shoulder Upper back pain on left side Pain in thoracic spine Upper back pain documented in this encounter [facility] note* Diagnosis Acute pain of left shoulder- Primary Upper back pain documented in this encounter [facility] note* Diagnosis Acute pain of left shoulder- Primary Upper back pain documented in this encounter [facility] note* Diagnosis Acute pain of left shoulder- Primary Upper back pain documented in this encounter [facility] note* Diagnosis Acute pain of left shoulder- Primary Upper back pain documented in this encounter [facility] note* Diagnosis Acute pain of left shoulder- Primary Upper back pain documented in this encounter [facility] note* Diagnosis Periumbilical abdominal pain- Primary Abdominal pain, periumbilic documented in this encounter [facility] note* Diagnosis Onset Date Resolution Status Encounter for pre-employment health screening examination acute [facility] Work [facility]* Diagnosis Crushing injury of unspecified left toe(s), initial encounter- Primary documented in this encounter [facility] note* Diagnosis Encounter for screening examination for sexually transmitted disease- Primary Exposure to chlamydia Contact with or exposure to venereal diseases documented in this encounter [facility] note* Diagnosis Nausea and vomiting, unspecified vomiting type- Primary documented in this encounter [facility] note* Diagnosis Umbilical pain- Primary Abdominal pain, periumbilic documented [facility]* Diagnosis with uncertain viability, single or unspecified fetus- Primary Nausea/vomiting in Unspecified vomiting of , unspecified as to episode of care documented in this encounter [facility] note* Diagnosis Threatened miscarriage- Primary Threatened , unspecified as to episode of care Nausea and vomiting, unspecified vomiting type [facility]* Diagnosis with uncertain viability, single or unspecified fetus- Primary Subchorionic hematoma in first trimester, single or unspecified fetus [facility]* Diagnosis Missed - Primary Screen for STD (sexually transmitted disease) Screening examination for venereal disease 9 weeks gestation of state, incidental General counseling and advice for contraceptive management Other general counseling and advice for contraceptive management documented in this encounter [facility] note* Diagnosis Malaise and fatigue- Primary Other malaise and fatigue [facility]* Diagnosis Sinobronchitis- Primary Unspecified sinusitis (chronic) documented in this encounter [facility] note* Diagnosis Crushing injury of unspecified left toe(s), initial encounter documented in this encounter [facility] note* Diagnosis Upper back pain documented in this encounter [facility] note* Diagnosis Generalized abdominal pain- Primary Abdominal pain, generalized Nausea and vomiting, unspecified vomiting type Constipation, unspecified constipation type Anxiety Anxiety state, unspecified documented in this encounter [facility] note* Diagnosis Right wrist pain- Primary Pain in joint, forearm documented in this encounter [facility] note* Diagnosis Right wrist pain- Primary Pain in joint, forearm documented in this encounter [facility] note* Diagnosis Muscle strain of lower leg, right, initial encounter- Primary documented in this encounter [facility] Work Phone: Hospital Discharge instructions* Attachments The following attachments cannot be sent through Care Everywhere. * _Crutches, How to Use, [facility] (Ukrainian) * Leg Muscle Strain ED (Ukrainian) [facility] Work [facility]: Hospital Discharge instructionsAdditional Instructions You been started on steroids. I suspect you have inflammation of your bicep which is causing your pain. You need to rest this. Do not do any sit ups or anything that aggravates it for the next week or so. Continue to ice and take NSAIDs. Please follow with your family doctor or orthopedics especially if their symptoms are worsening or not improving.[facility] Work Phone: Reason for referral (narrative)* Diagnostic Procedure Only (Routine) - Pending Review Specialty Diagnoses / Procedures Referred By Contac t Referred To Contact [facility] IMAG[facility] Diagnoses Crushing injury of unspecified left toe(s), initial encounter Procedures XR FOOT GENERAL 3V AP/LAT/OBL LEFT RADEX FOOT COMPLETE MINIMUM 3 VIEWS Ree Banks APRN.CNP [address] [phone] [place] [address] Referral ID Status Reason Start Date Expiration Date Visits Requested Visits Authorized [id number] Pending Review Auto-Generat ed Referral 08/13/2024 1 1 [facility] for referral (narrative)* Diagnostic Procedure Only (Routine) - New Request Specialty Diagnoses / Procedures Referred By Contac t Referred To Contact [facility] Diagnoses with uncertain viability, single or unspecified fetus Procedures PELVIC US I US PELVIC NONOBSTETRIC REAL-TIME IMAGE COMPLETE Krystal Henderson APRN.CUSTODIAL SERVICES MANAGER [address] [place] [address] [facility] [address] [phone] Referral ID Status Reason Start Date Expiration Date Visits Requested Visits Authorized [id number] New Request Auto-Generat ed Referral 03/13/2024 03/13/2025 1 1 [facility] for referral (narrative)* Diagnostic Procedure Only (Routine) - Closed Specialty Diagnoses / Procedures Referred By Contac t Referred To Contact XR IMAGING Diagnoses Crushing injury of unspecified left toe(s), initial encounter Procedures XR FOOT GENERAL 3V AP/LAT/OBL LEFT RADEX FOOT COMPLETE MINIMUM 3 VIEWS Ree Banks APRN.CUSTODIAL SERVICES MANAGER [address] [place] [address] [place] [address] Referral ID Status Reason Start Date Expiration Date V isits Requested Visits Authorized [id number] Closed Auto-Generate d Referral 07/15/2023 08/13/2024 1 1 [facility] for referral (narrative)* Diagnostic Procedure Only (Urgent) - Closed Specialty Diagnoses / Procedures Referred By Contac t Referred To Contact XR IMAGING Diagnoses Upper back pain Procedures XR THORACIC GENERAL 3V AP/LAT/SWIMMERS RADEX SPINE THORACIC 3 VIEWS Veronica Patino PA-C [address] [phone] [place] [address] Referral ID Status Reason Start Date Expiration Date V isits Requested Visits Authorized [id number] Closed Auto-Generate d Referral 09/26/2022 10/26/2023 1 1 [facility] for referral (narrative)No reason for referral information availableWOur [facility] of [facility] Work Phone: Reason for visit Narrative* Diagnostic Procedure Only (Routine) - Closed Specialty Diagnoses / Procedures Referred By Contac t Referred To Contact [facility] Diagnoses with uncertain viability, single or unspecified fetus Procedures PELVIC US I US PELVIC NONOBSTETRIC REAL-TIME IMAGE COMPLETE Krystal Henderson APRN.CUSTODIAL SERVICES MANAGER [address] [place] [phone] [facility] [address] [place] [address] Referral ID Status Reason Start Date Expiration Date V isits Requested Visits Authorized [id number] Closed Auto-Generate d Referral 03/13/2024 03/13/2025 1 1 [facility] for visit Narrative* Diagnostic Procedure Only (Routine) - Closed Specialty Diagnoses / Procedures Referred By Contac t Referred To Contact XR IMAGING Diagnoses Crushing injury of unspecified left toe(s), initial encounter Procedures XR FOOT GENERAL 3V AP/LAT/OBL LEFT RADEX FOOT COMPLETE MINIMUM 3 VIEWS Ree Banks APRN.CUSTODIAL SERVICES MANAGER [address] [place] [address] [place] [address] Referral ID Status Reason Start Date Expiration Date V isits Requested Visits Authorized [id number] Closed Auto-Generate d Referral 07/15/2023 08/13/2024 1 1 [facility]* Diagnostic Procedure Only (Urgent) - Closed Specialty Diagnoses / Procedures Referred By Zeldaac t Referred To Contact XR IMAGING Diagnoses Upper back pain Procedures XR THORACIC GENERAL 3V AP/LAT/SWIMMERS RADEX SPINE THORACIC 3 VIEWS Veronica Patino, DEE DEEC [address] [place] [address] [place] [address] Referral ID Status Reason Start Date Expiration Date V isits Requested Visits Authorized [id number] Closed Auto-Generate d Referral 09/26/2022 10/26/2023 1 1 [facility] Summary Purpose Family History No Family History Records Found Relationship Condition Age at Onset Recorded Date/T panchito mother Cardiac disease Unknown Malignant neoplasm Unknown grandmother Hypertension Unknown Seizure Unknown Disorder of thyroid Unknown grandfather Malignant neoplasm Unknown Advance Directives No Advanced Directives Records Found Advance Directive Response Recorded Date/ Time Living Will No February 15, 2022 4:49pm Power of Transportation Project Manager No February 15 4:49pm Advance Directive Response Recorded Date/ Time Living Will No March 01, 2022 5:04pm Power of Transportation Project Manager No March 01 5:04pm Advance Directive Response Recorded Date/ Time Living Will No September 28 12:59pm Power of Transportation Project Manager No September 28, 2022 12:59pm Advance Directive Response Recorded Date/ Time Living Will No October 11 023 9:00pm Power of Transportation Project Manager No October 11, 2022 9:00pm Advance Directive Response Recorded Date/ Time Living Will No November 20, 2022 1:46pm Power of Transportation Project Manager No November 20 1:46pm Advance Directive Response Recorded Date/ Time Living Will No April 16 7:11pm Power of Transportation Project Manager No April 16 023 7:11pm Advance Directive Response Recorded Date/ Time Do you have a Healthcare Power of Transportation Project Manager? No December 18, 2024 11:28am Do you have a Healthcare Power of Transportation Project Manager? No January 28, 2025 1:12pm Advance Directive Response Recorded Date/ Time Do you have a Healthcare Power of Transportation Project Manager? No December 18, 2024 11:28am Do you have a Healthcare Power of Transportation Project Manager? No January 28, 2025 1:12pm Do you have a Healthcare Power of Transportation Project Manager? No February 04, 2025 11:15am Advance Directive Response Recorded Date/ Time Do you have a Healthcare Power of Transportation Project Manager? No January 28, 2025 1:12pm Do you have a Healthcare Power of Transportation Project Manager? No February 04, 2025 11:15am Do you have a Healthcare Power of Transportation Project Manager? No May 07, 2025 1:48pm Chief Complaint and Reason for Visit Chief Complaint abd pain Chief Complaint abd pain UMBILICAL HERNIA ABD PAIN Reason for Visit Umbilical hernia wit hout obstruction or gangrene Chief Complaint abd pain UMBILICAL HERNIA ABD PAIN UMBILICAL HERNIA REPAIR UMBILICAL HERNIA REPAIR Reason for Visit Umbilical hernia wit hout obstruction or gangrene Umbilical hernia without obstruction or gangrene Chief Complaint SHOULDER PAIN Chief Complaint SHOULDER PAIN L SHOULDER NUMBNESS Chief Complaint SHOULDER PAIN L SHOULDER NUMBNESS abd Chief Complaint PE NON DOT DRUG TEST / [facility] PE PHYSICAL/ [facility] RIB Reason for Visit Encounter for pre-em ployment health screening examination Chief Complaint Admit Date ABD PAIN December 18, 2024 10:30a m abd pain January 28, 2025 11:1 0am Chief Complaint Admit Date ABD PAIN December 18, 2024 10:30a m abd pain January 28, 2025 11:1 0am SYNCOPE February 04, 2025 11:1 4am Chief Complaint Admit Date ABD PAIN December 18, 2024 10:30a m abd pain January 28, 2025 11:1 0am SYNCOPE February 04, 2025 11:1 4am ED F/U- PAIN AT PREV. HERNIA SITE February 172024 2:49pm Chief Complaint Admit Date abd pain January 28, 2025 11:1 0am SYNCOPE February 04, 2025 11:1 4am ED F/U- PAIN AT PREV. HERNIA SITE February 172024 2:49pm upper ext May 07, 2025 1:36pm Reason for Visit Admit Date Postoperative abdominal pain March 03, 2025 2:49pm Health Concerns Infection Onset Date Last Indicated Resolved Time COVID-19 Rule-Out 04/05/2022 04/05/2022 Infection Onset Date Last Indicated Resolved Time COVID-19 Rule-Out 04/28/2022 04/28/2022 Infection Onset Date Last Indicated Resolved Time COVID-19 Rule-Out 05/01/2022 05/01/2022 Infection Onset Date Last Indicated Resolved Time COVID-19 Rule-Out 06/20/2022 06/20/2022 Infection Onset Date Last Indicated Resolved Time COVID-19 Rule-Out 06/20/2022 06/20/2022 06/21/2022 4:15 AM EDT Reason for Referral Specialty Diagnoses / Procedures Referred By Contac t Referred To Contact [facility] Diagnoses Acute pain of left shoulder Upper back pain on left side Upper back pain Procedures PT REHAB FOLLOW UP ORDER THERAPEUTIC EXERCISES RE, EA 15 MIN. Pt [facility] [address] [place] [address] [facility] [address] [address] Referral ID Status Reason Start Date Expiration Date Visits Requested Visits Authorized [id number] Pending Review PCP Requested Referral Auto-Generate d Referral 10/17/2022 01/15/2023 1 1 Specialty Diagnoses / Procedures Referred By Contac t Referred To Contact [facility] Diagnoses Acute pain of left shoulder Upper back pain Procedures PT REHAB FOLLOW UP ORDER THERAPEUTIC EXERCISES RE, EA 15 MIN. Pt [facility] [address] [place] [address] [facility] [address] [address] Referral ID Status Reason Start Date Expiration Date Visits Requested Visits Authorized [id number] Pending Review PCP Requested Referral Auto-Generate d Referral 12/01/2022 03/01/2023 1 1 Additional Source Comments INFORMATION SOURCE (unrecogn ized section and content) DATE CREATED AUTHOR 09/11/2020 [facility] DATE CREATED AUTHOR AUTHOR'S ORGANIZ ATION 09/23/2020 [facility] DATE CREATED AUTHOR AUTHOR'S ORGANIZ ATION 12/31/2022 [facility] [place] [facility] DATE CREATED AUTHOR AUTHOR'S ORGANIZ ATION 04/18/2025 [facility] DATE CREATED AUTHOR AUTHOR'S ORGANIZ ATION 05/06/2025 [facility] DATE CREATED AUTHOR AUTHOR'S ORGANIZ ATION 05/13/2025 [facility] DATE CREATED AUTHOR AUTHOR'S ORGANIZ ATION 06/03/2025 [facility] DATE CREATED AUTHOR AUTHOR'S ORGANIZ ATION 06/14/2025 [facility] DATE CREATED AUTHOR AUTHOR'S ORGANIZ ATION 06/15/2025 [facility] Source Comments (unrecognize d section and content) In the event this informatio n is protected by the Federal Confidentiality of Alcohol and Drug Abuse Patient Records regulations: The Federal rules restrict any use of the information to criminally investigate or prosecute any alcohol or drug abuse patient.[facility] Center[facility] the event this information is protected by the Federal Confidentiality of Alcohol and Drug Abuse Patient Records regulations: The Federal rules restrict any use of the information to criminally investigate or prosecute any alcohol or drug abuse patient.[facility] CenterIn the event this information is protected by the Federal Confidentiality of Alcohol and Drug Abuse Patient Records regulations: The Federal rules restrict any use of the information to criminally investigate or prosecute any alcohol or drug abuse patient.[facility] CenterIn the event this information is protected by the Federal Confidentiality of Alcohol and Drug Abuse Patient Records regulations: The Federal rules restrict any use of the information to criminally investigate or prosecute any alcohol or drug abuse patient.[facility] CenterIn the event this information is protected by the Federal Confidentiality of Alcohol and Drug Abuse Patient Records regulations: The Federal rules restrict any use of the information to criminally investigate or prosecute any alcohol or drug abuse patient.[facility] CenterIn the event this information is protected by the Federal Confidentiality of Alcohol and Drug Abuse Patient Records regulations: The Federal rules restrict any use of the information to criminally investigate or prosecute any alcohol or drug abuse patient.[facility] CenterIn the event this information is protected by the Federal Confidentiality of Alcohol and Drug Abuse Patient Records regulations: The Federal rules restrict any use of the information to criminally investigate or prosecute any alcohol or drug abuse patient.[facility] CenterIn the event this information is protected by the Federal Confidentiality of Alcohol and Drug Abuse Patient Records regulations: The Federal rules restrict any use of the information to criminally investigate or prosecute any alcohol or drug abuse patient.[facility] CenterIn the event this information is protected by the Federal Confidentiality of Alcohol and Drug Abuse Patient Records regulations: The Federal rules restrict any use of the information to criminally investigate or prosecute any alcohol or drug abuse patient.[facility] CenterIn the event this information is protected by the Federal Confidentiality of Alcohol and Drug Abuse Patient Records regulations: The Federal rules restrict any use of the information to criminally investigate or prosecute any alcohol or drug abuse patient.[facility] CenterIn the event this information is protected by the Federal Confidentiality of Alcohol and Drug Abuse Patient Records regulations: The Federal rules restrict any use of the information to criminally investigate or prosecute any alcohol or drug abuse patient.[facility] CenterIn the event this information is protected by the Federal Confidentiality of Alcohol and Drug Abuse Patient Records regulations: The Federal rules restrict any use of the information to criminally investigate or prosecute any alcohol or drug abuse patient.[facility] CenterIn the event this information is protected by the Federal Confidentiality of Alcohol and Drug Abuse Patient Records regulations: The Federal rules restrict any use of the information to criminally investigate or prosecute any alcohol or drug abuse patient.[facility] CenterIn the event this information is protected by the Federal Confidentiality of Alcohol and Drug Abuse Patient Records regulations: The Federal rules restrict any use of the information to criminally investigate or prosecute any alcohol or drug abuse patient.[facility] CenterIn the event this information is protected by the Federal Confidentiality of Alcohol and Drug Abuse Patient Records regulations: The Federal rules restrict any use of the information to criminally investigate or prosecute any alcohol or drug abuse patient.[facility] CenterIn the event this information is protected by the Federal Confidentiality of Alcohol and Drug Abuse Patient Records regulations: The Federal rules restrict any use of the information to criminally investigate or prosecute any alcohol or drug abuse patient.[facility] CenterIn the event this information is protected by the Federal Confidentiality of Alcohol and Drug Abuse Patient Records regulations: The Federal rules restrict any use of the information to criminally investigate or prosecute any alcohol or drug abuse patient.[facility] CenterIn the event this information is protected by the Federal Confidentiality of Alcohol and Drug Abuse Patient Records regulations: The Federal rules restrict any use of the information to criminally investigate or prosecute any alcohol or drug abuse patient.[facility] CenterIn the event this information is protected by the Federal Confidentiality of Alcohol and Drug Abuse Patient Records regulations: The Federal rules restrict any use of the information to criminally investigate or prosecute any alcohol or drug abuse patient.[facility] CenterIn the event this information is protected by the Federal Confidentiality of Alcohol and Drug Abuse Patient Records regulations: The Federal rules restrict any use of the information to criminally investigate or prosecute any alcohol or drug abuse patient.[facility] CenterIn the event this information is protected by the Federal Confidentiality of Alcohol and Drug Abuse Patient Records regulations: The Federal rules restrict any use of the information to criminally investigate or prosecute any alcohol or drug abuse patient.[facility] CenterIn the event this information is protected by the Federal Confidentiality of Alcohol and Drug Abuse Patient Records regulations: The Federal rules restrict any use of the information to criminally investigate or prosecute any alcohol or drug abuse patient.[facility] CenterIn the event this information is protected by the Federal Confidentiality of Alcohol and Drug Abuse Patient Records regulations: The Federal rules restrict any use of the information to criminally investigate or prosecute any alcohol or drug abuse patient.[facility] CenterIn the event this information is protected by the Federal Confidentiality of Alcohol and Drug Abuse Patient Records regulations: The Federal rules restrict any use of the information to criminally investigate or prosecute any alcohol or drug abuse patient.[facility] CenterIn the event this information is protected by the Federal Confidentiality of Alcohol and Drug Abuse Patient Records regulations: The Federal rules restrict any use of the information to criminally investigate or prosecute any alcohol or drug abuse patient.[facility] CenterIn the event this information is protected by the Federal Confidentiality of Alcohol and Drug Abuse Patient Records regulations: The Federal rules restrict any use of the information to criminally investigate or prosecute any alcohol or drug abuse patient.[facility] CenterIn the event this information is protected by the Federal Confidentiality of Alcohol and Drug Abuse Patient Records regulations: The Federal rules restrict any use of the information to criminally investigate or prosecute any alcohol or drug abuse patient.[facility] CenterIn the event this information is protected by the Federal Confidentiality of Alcohol and Drug Abuse Patient Records regulations: The Federal rules restrict any use of the information to criminally investigate or prosecute any alcohol or drug abuse patient.[facility] CenterIn the event this information is protected by the Federal Confidentiality of Alcohol and Drug Abuse Patient Records regulations: The Federal rules restrict any use of the information to criminally investigate or prosecute any alcohol or drug abuse patient.[facility] CenterIn the event this information is protected by the Federal Confidentiality of Alcohol and Drug Abuse Patient Records regulations: The Federal rules restrict any use of the information to criminally investigate or prosecute any alcohol or drug abuse patient.[facility] CenterIn the event this information is protected by the Federal Confidentiality of Alcohol and Drug Abuse Patient Records regulations: The Federal rules restrict any use of the information to criminally investigate or prosecute any alcohol or drug abuse patient.[facility] CenterIn the event this information is protected by the Federal Confidentiality of Alcohol and Drug Abuse Patient Records regulations: The Federal rules restrict any use of the information to criminally investigate or prosecute any alcohol or drug abuse patient.[facility] CenterIn the event this information is protected by the Federal Confidentiality of Alcohol and Drug Abuse Patient Records regulations: The Federal rules restrict any use of the information to criminally investigate or prosecute any alcohol or drug abuse patient.[facility] CenterIn the event this information is protected by the Federal Confidentiality of Alcohol and Drug Abuse Patient Records regulations: The Federal rules restrict any use of the information to criminally investigate or prosecute any alcohol or drug abuse patient.[facility] CenterIn the event this information is protected by the Federal Confidentiality of Alcohol and Drug Abuse Patient Records regulations: The Federal rules restrict any use of the information to criminally investigate or prosecute any alcohol or drug abuse patient.[facility] CenterIn the event this information is protected by the Federal Confidentiality of Alcohol and Drug Abuse Patient Records regulations: The Federal rules restrict any use of the information to criminally investigate or prosecute any alcohol or drug abuse patient.[facility] CenterIn the event this information is protected by the Federal Confidentiality of Alcohol and Drug Abuse Patient Records regulations: The Federal rules restrict any use of the information to criminally investigate or prosecute any alcohol or drug abuse patient.[facility] CenterIn the event this information is protected by the Federal Confidentiality of Alcohol and Drug Abuse Patient Records regulations: The Federal rules restrict any use of the information to criminally investigate or prosecute any alcohol or drug abuse patient.[facility] CenterIn the event this information is protected by the Federal Confidentiality of Alcohol and Drug Abuse Patient Records regulations: The Federal rules restrict any use of the information to criminally investigate or prosecute any alcohol or drug abuse patient.[facility] CenterIn the event this information is protected by the Federal Confidentiality of Alcohol and Drug Abuse Patient Records regulations: The Federal rules restrict any use of the information to criminally investigate or prosecute any alcohol or drug abuse patient.[facility] CenterIn the event this information is protected by the Federal Confidentiality of Alcohol and Drug Abuse Patient Records regulations: The Federal rules restrict any use of the information to criminally investigate or prosecute any alcohol or drug abuse patient.[facility] CenterIn the event this information is protected by the Federal Confidentiality of Alcohol and Drug Abuse Patient Records regulations: The Federal rules restrict any use of the information to criminally investigate or prosecute any alcohol or drug abuse patient.[facility] CenterIn the event this information is protected by the Federal Confidentiality of Alcohol and Drug Abuse Patient Records regulations: The Federal rules restrict any use of the information to criminally investigate or prosecute any alcohol or drug abuse patient.[facility] CenterIn the event this information is protected by the Federal Confidentiality of Alcohol and Drug Abuse Patient Records regulations: The Federal rules restrict any use of the information to criminally investigate or prosecute any alcohol or drug abuse patient.[facility] CenterIn the event this information is protected by the Federal Confidentiality of Alcohol and Drug Abuse Patient Records regulations: The Federal rules restrict any use of the information to criminally investigate or prosecute any alcohol or drug abuse patient.[facility] CenterIn the event this information is protected by the Federal Confidentiality of Alcohol and Drug Abuse Patient Records regulations: The Federal rules restrict any use of the information to criminally investigate or prosecute any alcohol or drug abuse patient.[facility] CenterIn the event this information is protected by the Federal Confidentiality of Alcohol and Drug Abuse Patient Records regulations: The Federal rules restrict any use of the information to criminally investigate or prosecute any alcohol or drug abuse patient.[facility] CenterIn the event this information is protected by the Federal Confidentiality of Alcohol and Drug Abuse Patient Records regulations: The Federal rules restrict any use of the information to criminally investigate or prosecute any alcohol or drug abuse patient.[facility] CenterIn the event this information is protected by the Federal Confidentiality of Alcohol and Drug Abuse Patient Records regulations: The Federal rules restrict any use of the information to criminally investigate or prosecute any alcohol or drug abuse patient.[facility]In the event this information is protected by the Federal Confidentiality of Alcohol and Drug Abuse Patient Records regulations: The Federal rules restrict any use of the information to criminally investigate or prosecute any alcohol or drug abuse patient.[facility] CenterIn the event this information is protected by the Federal Confidentiality of Alcohol and Drug Abuse Patient Records regulations: The Federal rules restrict any use of the information to criminally investigate or prosecute any alcohol or drug abuse patient.[facility] CenterIn the event this information is protected by the Federal Confidentiality of Alcohol and Drug Abuse Patient Records regulations: The Federal rules restrict any use of the information to criminally investigate or prosecute any alcohol or drug abuse patient.[facility] CenterIn the event this information is protected by the Federal Confidentiality of Alcohol and Drug Abuse Patient Records regulations: The Federal rules restrict any use of the information to criminally investigate or prosecute any alcohol or drug abuse patient.[facility] CenterIn the event this information is protected by the Federal Confidentiality of Alcohol and Drug Abuse Patient Records regulations: The Federal rules restrict any use of the information to criminally investigate or prosecute any alcohol or drug abuse patient.[facility] CenterIn the event this information is protected by the Federal Confidentiality of Alcohol and Drug Abuse Patient Records regulations: The Federal rules restrict any use of the information to criminally investigate or prosecute any alcohol or drug abuse patient.[facility] Reason for Visit (unrecogniz ed section and content) Reason Comments Head Congestion bodyaches, sore thro at and left ear pain x last night Reason Comments Headache Possible migraine, w charlee like this Reason Comments Headache NAVARRO x 2 days and COVI D exposure Reason Comments Nasal Congestion Sore throat, body ac hes, NAVARRO started this morning Reason Comments Head Congestion sore throat, chest c ongestion, cough x 3-4 days Reason Comments Head Congestion pain in both ears x this am Reason Comments Results Reason Comments Ear Pain Bilateral ear pain, chills, body aches,nausea x 2 days Reason Comments PT Eval Specialty Diagnoses / Procedures Referred By Rebekah t Referred To Contact [facility] Diagnoses Acute pain of left shoulder Upper back pain on left side Procedures CONSULT TO PHYSICAL THERAPY PHYSICAL THERAPY EVALUATION HIGH COMPLEX 45 MINS Michelle Bashir, BUSINESS DEPARTMENT CHAIR.CUSTODIAL SERVICES MANAGER [address] [place] [address] [facility] [address] [place], [place] [address] [address] Referral ID Status Reason Start Date Expiration Date Visits Requested Visits Authorized [id number] Pending Review Auto-Generat ed Referral 10/06/2022 10/06/2023 1 1 Reason Comments No Show First no show in 365 days. Reason Comments Results Gilberto Reason Comments Physical Therapy Specialty Diagnoses / Procedures Referred By Contac t Referred To Contact Physical Therapy / PHYSICAL THERAPY Diagnoses Pain in left shoulder Acute pain of left shoulder [M25.512 (ICD-10-CM)]; Upper back pain on left side Procedures follow up RS PT [facility] Michelle Bashir, BUSINESS DEPARTMENT CHAIR.CUSTODIAL SERVICES MANAGER [address] [place] [address] Vitaly Jonas, PT [address] [place] [address] Referral ID Status Reason Start Date Expiration Date V isits Requested Visits Authorized [id number] Authorized 08/20/2022 08/19/2023 30 29 Reason Comments PT Progress Note Physical Therapy Specialty Diagnoses / Procedures Referred By Contac t Referred To Contact Physical Therapy / PHYSICAL THERAPY Diagnoses Pain in left shoulder Acute pain of left shoulder [M25.512 (ICD-10-CM)]; Upper back pain on left side Procedures follow up RS PT [employer] Michelle Bashir, BUSINESS DEPARTMENT CHAIR.CUSTODIAL SERVICES MANAGER [address] [place] [address] Vitaly Jonas, PT [address] [place] [address] Reason Onset Date Comments ER F/U 12/20/2022 Reason Comments No Show Second no show in 36 5 days. Reason Comments Abdominal Pain PSHx umbilical herni a repair, chronic soreness, worsening pain x3 weeks Reason Comments Missed Appointment 3rd no show in 365 d ays (3rd letter sent) Reason Comments Toe Injury L foot toes 1 and 2 injury x1 day Reason Comments STD check STD check-exposure Reason Comments Results Orders Reason Comments Nausea & Vomiting X 5 days, + preg amor t at home Reason Comments Patient Update Follow up from ER Reason Comments problem visit Possible Miscarriage Reason Comments Follow Up Reason Comments Received Outside Medical Records Reason Comments Follow Up Pre op Reason Comments Chest Congestion Sob x 3 weeks Reason Comments Medication Question Reason Onset Date Comments ED Follow-up 12/18/2024 [facility] 025 Reason Onset Date Comments ED Follow-up 01/28/2025 [facility] 2024 Reason Onset Date Comments ED Follow-up 02/11/2025 [facility] 02/04/25 Reason Comments Abdominal Pain Pt here for stomach pain, for about a month. Pt states that she has nausea and vomiting in the morning. Pt has gone to the ER in regards to this. Pt states that her blood pressure had been up and down as well. Reason Comments Referral Request Reason Comments Injury Reason Comments Follow-up Reason Comments Leg Injury Pt states she was ru nning and her foot got caught in a divet and she fell. P ain to rught mid calf, ankle and foot. 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 Reason Onset Date Comments ED Follow-up 04/18/2025 [facility] 03/22 and [facility] 04/22/2025 Goals (unrecognized section and content) Goals may be documented in a n alternate sectionGoals may be documented in an alternate sectionGoals may be documented in an alternate sectionGoals may be documented in an alternate sectionGoals may be documented in an alternate section No data available for this section No data available for this sectionGoals may be documented in an alternate section No data available for this sectionGoals may be documented in an alternate sectionGoals may be documented in an alternate sectionGoals may be documented in an alternate sectionGoals may be documented in an alternate section Care Teams (unrecognized sec tion and content) Team Status: Active Member Role Status Dates Dr. Maksim Gonzalez MD Family Provider Active No Primary Care Physician Primary Care Provider Active Team Status: Inactive Member Role Status Dates No Primary Care Physician Primary Care Provider Active Dr. Maximo Lew , Emergency Provider Active Team Status: Inactive Member Role Status Dates No Primary Care Physician Primary Care Provider Active Dr. Maximo Lew , Attending Provider, Emergency P rajendra Active Team Status: Inactive Member Role Status Dates No Primary Care Physician Primary Care Provider Active Dr. Magnus Millan MD Emergency Provider Active Suppression Crew Leader Relationship Specialty Start Date End Date Michelle Bashir, BUSINESS DEPARTMENT CHAIR.CUSTODIAL SERVICES MANAGER [address] [place] [address] PCP - General Family Medicine 10/06/22 Suppression Crew Leader Relationship Specialty Start Date End Date Michelle Bashir BUSINESS DEPARTMENT CHAIR.CUSTODIAL SERVICES MANAGER [address] [place] [address] PCP - General Family Medicine 10/06/22 Suppression Crew Leader Relationship Specialty Start Date End Date Michelle Bashir, BUSINESS DEPARTMENT CHAIR.CUSTODIAL SERVICES MANAGER [address] [place] [address] PCP - General Family Medicine 10/06/22 Team Status: Inactive Member Role Status Dates No Primary Care Physician Primary Care Provider Active Dr. Magnus Millan MD Attending Provider, Emergency Provider Active Team Status: Inactive Member Role Status Dates No Primary Care Physician Primary Care Provider Active Dr. Mckenna Warren MD Emergency Provider Active Suppression Crew Leader Relationship Specialty Start Date End Date Michelle Bashir, BUSINESS DEPARTMENT CHAIR.CUSTODIAL SERVICES MANAGER [address] [place] [address] PCP - General Family Medicine 10/06/22 Suppression Crew Leader Relationship Specialty Start Date End Date Michelle Bashir, BUSINESS DEPARTMENT CHAIR.CUSTODIAL SERVICES MANAGER [address] [place] [address] PCP - General Family Medicine 10/06/22 Suppression Crew Leader Relationship Specialty Start Date End Date Michelle Bashir, BUSINESS DEPARTMENT CHAIR.CUSTODIAL SERVICES MANAGER [address] [place] [address] PCP - General Family Medicine 10/06/22 Suppression Crew Leader Relationship Specialty Start Date End Date Michelle Bashir, BUSINESS DEPARTMENT CHAIR.CUSTODIAL SERVICES MANAGER [address] [place] [address] PCP - General Family Medicine 10/06/22 Suppression Crew Leader Relationship Specialty Start Date End Date Michelle Bashir, BUSINESS DEPARTMENT CHAIR.CUSTODIAL SERVICES MANAGER [address], [place] [id number] PCP - General Family Medicine 10/06/22 Suppression Crew Leader Relationship Specialty Start Date End Date Michelle Bashir A, BUSINESS DEPARTMENT CHAIR.CUSTODIAL SERVICES MANAGER [address] [place] [address] PCP - General Family Medicine 10/06/22 Suppression Crew Leader Relationship Specialty Start Date End Date Michelle Bashir A, BUSINESS DEPARTMENT CHAIR.CUSTODIAL SERVICES MANAGER [address] [place] [address] PCP - General Family Medicine 10/06/22 Team Status: Inactive Member Role Status Dates No Primary Care Physician Primary Care Provider, Refer ring Provider Active Min DUENAS, PA Attending Provider Active Suppression Crew Leader Relationship Specialty Start Date End Date Michelle Bashir A, BUSINESS DEPARTMENT CHAIR.CUSTODIAL SERVICES MANAGER [address] [place] [address] PCP - General Family Medicine 10/06/22 Suppression Crew Leader Relationship Specialty Start Date End Date Michelle Bashir A, BUSINESS DEPARTMENT CHAIR.CUSTODIAL SERVICES MANAGER [address] [place], [place] [id number] PCP - General Family Medicine 10/06/22 Suppression Crew Leader Relationship Specialty Start Date End Date Michelle Bashir A, BUSINESS DEPARTMENT CHAIR.CUSTODIAL SERVICES MANAGER [address] [place] [address] PCP - General Family Medicine 10/06/22 Suppression Crew Leader Relationship Specialty Start Date End Date Michelle Bashir A, BUSINESS DEPARTMENT CHAIR.CUSTODIAL SERVICES MANAGER [address] [facility] [place] [phone] PCP - General Family Medicine 10/06/22 Suppression Crew Leader Relationship Specialty Start Date End Date Michelle Bashir A, BUSINESS DEPARTMENT CHAIR.CUSTODIAL SERVICES MANAGER [address] [place] [address] PCP - General Family Medicine 10/06/22 Suppression Crew Leader Relationship Specialty Start Date End Date Michelle Bashir, BUSINESS DEPARTMENT CHAIR.CUSTODIAL SERVICES MANAGER [address] [place] [address] PCP - General Family Medicine 10/06/22 Suppression Crew Leader Relationship Specialty Start Date End Date Michelle Bashir, BUSINESS DEPARTMENT CHAIR.CUSTODIAL SERVICES MANAGER [address] [place] [address] PCP - General Family Medicine 10/06/22 Suppression Crew Leader Relationship Specialty Start Date End Date Michelle Bashir, BUSINESS DEPARTMENT CHAIR.CUSTODIAL SERVICES MANAGER [address] [place] [address] PCP - General Family Medicine 10/06/22 Suppression Crew Leader Relationship Specialty Start Date End Date Michelle Bashir, BUSINESS DEPARTMENT CHAIR.CUSTODIAL SERVICES MANAGER [address] [place] [address] PCP - General Family Medicine 10/06/22 Suppression Crew Leader Relationship Specialty Start Date End Date Michelle Bashir, BUSINESS DEPARTMENT CHAIR.CUSTODIAL SERVICES MANAGER [address] [place] [address] PCP - General Family Medicine 10/06/22 Suppression Crew Leader Relationship Specialty Start Date End Date Michelle Bashir, BUSINESS DEPARTMENT CHAIR.CUSTODIAL SERVICES MANAGER [address] [place] [address] PCP - General Family Medicine 10/06/22 Suppression Crew Leader Relationship Specialty Start Date End Date Michelle Bashir A, BUSINESS DEPARTMENT CHAIR.CUSTODIAL SERVICES MANAGER [address] [place] [address] PCP - General Family Medicine 10/06/22 Suppression Crew Leader Relationship Specialty Start Date End Date Michelle Bashir, BUSINESS DEPARTMENT CHAIR.CUSTODIAL SERVICES MANAGER [address] [place], [place] [id number] PCP - General Family Medicine 10/06/22 Suppression Crew Leader Relationship Specialty Start Date End Date Michelle Bashir, BUSINESS DEPARTMENT CHAIR.CUSTODIAL SERVICES MANAGER [address] [place] [address] PCP - General Family Medicine 10/06/22 Suppression Crew Leader Relationship Specialty Start Date End Date Michelle Bashir, BUSINESS DEPARTMENT CHAIR.CUSTODIAL SERVICES MANAGER [address] [facility], [place] [phone] PCP - General Family Medicine 10/06/22 Team Status: Active Member Role Status Dates Michelle Bashir LEAD ATG DEVELOPER, LEAD ATG DEVELOPER-C Primary Care Provider Active Team Status: Inactive Member Role Status Dates Michelle Bashir LEAD ATG DEVELOPER, LEAD ATG DEVELOPER-C Primary Care Provider Active Start: December 18, 2024 End: December 18, 2024 Linden Wallace MD Attending Provider Active Star t: December 18, 2024 End: December 18, 2024 Linden Wallace MD Emergency Provider Active Star t: December 18, 2024 End: December 18, 2024 Team Status: Inactive Member Role Status Dates Michelle Bashir LEAD ATG DEVELOPER, LEAD ATG DEVELOPER-C Primary Care Provider Active Start: January 28, 2025 End: January 28, 2025 Dr. Blanco Alfaro MD Emergency Provider Active Sta rt: January 28, 2025 End: January 28, 2025 Team Status: Inactive Member Role Status Dates Michelle Bashir LEAD ATG DEVELOPER, LEAD ATG DEVELOPER-C Primary Care Provider Active Start: January 28, 2025 End: January 28, 2025 Dr. Blanco Alfaro MD Attending Provider Active Sta rt: January 28, 2025 End: January 28, 2025 Dr. Blanco Alfaro MD Emergency Provider Active Sta rt: January 28, 2025 End: January 28, 2025 Team Status: Inactive Member Role Status Dates Michelle Bashir LEAD ATG DEVELOPER, LEAD ATG DEVELOPER-C Primary Care Provider Active Start: February 04, 2025 End: February 04, 2025 Dr. Maximo Lew DO Emergency Provider Active Start: February 04, 2025 End: February 04, 2025 Team Status: Active Member Role/Relationship Status Dates Michelle Bashir LEAD ATG DEVELOPER, LEAD ATG DEVELOPER-C Primary Care Provider Active Team Status: Inactive Member Role/Relationship Status Dates Michelle Bashir LEAD ATG DEVELOPER, LEAD ATG DEVELOPER-C Primary Care Provider Active Start: December 18, 2024 End: December 18, 2024 Linden Wallace MD Attending Provider Active Star t: December 18, 2024 End: December 18, 2024 Linden Wallace MD Emergency Provider Active Star t: December 18, 2024 End: December 18, 2024 Team Status: Inactive Member Role/Relationship Status Dates Michelle Bashir LEAD ATG DEVELOPER, LEAD ATG DEVELOPER-C Primary Care Provider Active Start: January 28, 2025 End: January 28, 2025 Dr. Blanco Alfaro MD Attending Provider Active Sta rt: January 28, 2025 End: January 28, 2025 Dr. Blanco Alfaro MD Emergency Provider Active Sta rt: January 28, 2025 End: January 28, 2025 Team Status: Inactive Member Role/Relationship Status Dates Michelle Bashir LEAD ATG DEVELOPER, LEAD ATG DEVELOPER-C Primary Care Provider Active Start: February 04, 2025 End: February 04, 2025 Dr. Maximo Lew DO Attending Provider Active Start: February 04, 2025 End: February 04, 2025 Dr. Maximo Lew DO Emergency Provider Active Start: February 04, 2025 End: February 04, 2025 Team Status: Inactive Member Role/Relationship Status Dates Michelle Bashir LEAD ATG DEVELOPER, LEAD ATG DEVELOPER-C Primary Care Provider Active Start: March 03, 2025 End: March 03, 2025 Michelle Bashir LEAD ATG DEVELOPER, LEAD ATG DEVELOPER-C Referring Provider Active Start: March 03, 2025 End: March 03, 2025 Dr. Conor Qureshi MD Attending Provider Active Start: March 03, 2025 End: March 03, 2025 Suppression Crew Leader Relationship Specialty Start Date End Date Michelle Bashir APRN.CUSTODIAL SERVICES MANAGER [address] [place] [address] PCP - General Family Medicine 10/06/22 Suppression Crew Leader Relationship Specialty Start Date End Date Michelle Bashir CNP [address] [facility] [address] [place], [place] [phone] PCP - General Nurse Practitioner 03/20/25 Suppression Crew Leader Relationship Specialty Start Date End Date Michelle Bashir CUSTODIAL SERVICES MANAGER [address] [facility] [address] [place], [place] [phone] PCP - General Nurse Practitioner 03/20/25 Suppression Crew Leader Relationship Specialty Start Date End Date Michelle Bashir APRN-CUSTODIAL SERVICES MANAGER [address] [facility], [place] [phone] PCP - General Family Medicine 04/18/25 Team Status: Active Member Role/Relationship Status Dates Michelle Bashir LEAD ATG DEVELOPER, LEAD ATG DEVELOPER-C Primary care physician Active Team Status: Inactive Member Role/Relationship Status Dates Michelle Bashir LEAD ATG DEVELOPER, LEAD ATG DEVELOPER-C Primary care physician Active Start: January 28, 2025 End: January 28, 2025 Dr. Blanco Alfaro MD Attending physician Active St art: January 28, 2025 End: January 28, 2025 Dr. Blanco Alfaro MD Emergency Department Physician Acti ve Start: January 28, 2025 End: January 28, 2025 Team Status: Inactive Member Role/Relationship Status Dates Mihcelle Bashir LEAD ATG DEVELOPER, LEAD ATG DEVELOPER-C Primary care physician Active Start: February 04, 2025 End: February 04, 2025 Dr. Maximo Lew , Attending physician Active Start: February 04, 2025 End: February 04, 2025 Dr. Maximo Lew , Emergency Department Physician Active Start: February 04, 2025 End: February 04, 2025 Team Status: Inactive Member Role/Relationship Status Dates Michelle Bashir LEAD ATG DEVELOPER, LEAD ATG DEVELOPER-C Primary care physician Active Start: March 03, 2025 End: March 03, 2025 Michelle Bashir LEAD ATG DEVELOPER, LEAD ATG DEVELOPER-C Referring Provider Active Start: March 03, 2025 End: March 03, 2025 Dr. Conor Qureshi MD Attending physician Active Start: March 03, 2025 End: March 03, 2025 Team Status: Inactive Member Role/Relationship Status Dates Michelle Mckay LEAD ATG DEVELOPER, LEAD ATG DEVELOPER-C Primary care physician Active Start: May 07, 2025 End: May 07, 2025 Dr. Pili Pickering , DO Attending physician Active Start: May 07, 2025 End: May 07, 2025 Dr. Pili Pickering , DO Emergency Departm ent Physician Active Start: May 07, 2025 End: May 07, 2025 Scheduled Active and Recently Administ ered Medications (unrecognized section and content) Medication Order 04/16/2025 04/17/2025 04/18/2025 oxyCODONE-acetaminophen (Percocet) 5-325 mg per tablet 1 tablet (COMPLETED) 1 tablet, oral, Once, On 04/18/25 at 1840, For 1 dose, If ordered PRN for pain, nurse is permitted to administer this medication for higher pain scores based on patient preference? Yes 1847 (Given - Provid er: Estefania Guadarrama RN) FOR RECORDS PERTAINING TO PATIENTS WHO ARE OR HAVE BEEN ENROLLED IN A CHEMICAL DEPENDENCY/SUBSTANCEABUSE PROGRAM, SOME INFORMATION MAY BE OMITTED. This clinical summary was aggregated from multiple sources. Caution should be exercised in using it in the provision of clinical care. This summary normalizes information from multiple sources, and as a consequence, information in this document may materially change the coding, format and clinical context of patient data. In addition, data may be omitted in some cases. CLINICAL DECISIONS SHOULD BE BASED ON THE PRIMARY CLINICAL RECORDS. [facility]. provides no warranty or guarantee of the accuracy or completeness of information in this document.
[2025-06-16 20:25] LABS: Anion Gap 12 (5-15); BUN 10 mg/dL (4-19); BUN/Creat Ratio 13.2 RATIO (10-20); Calcium,Total 9.7 mg/dL (7.6-11.0); Carbon Dioxide 23.9 mmol/L (21.0-32.0); Chloride 104 mmol/L (98-108); Estimated Creatinine Clearance 100.36 ml/min (50-250); Glucose 117 mg/dL (70-99); Potassium 3.6 mmol/L (3.3-5.1)
[2025-06-16 20:27] LABS: Internal QC Validated? YES +Cl - CLEAR BKGD; Pregnancy, Serum, hCG Quali. NEGATIVE Negative; Record Kit Lot#, Serum Preg. 0000980607
[2025-06-16 21:29] VITALS: BP 127/84; PULSE 87; RESP 16; O2SAT 100
[2025-06-16 21:58] VITALS: BP 125/76; PULSE 76; RESP 16; TEMP 37; O2SAT 97
== END 2025-06-16 22:09 | disposition home or self-care (01) ==
PROVIDERS: Emergency Provider Emergency Medicine; PCP Nurse Practitioner Family; Visit Provider Emergency Medicine
DX: R10.9 Unspecified abdominal pain (principal); F17.290 Nicotine dependence, other tobacco product, uncomplicated; Z87.19 Personal history of other diseases of the digestive system
CPT/HCPCS: 74177; 80048; 84703; 85025; 96374; 99282; Q9967; A4216